=== PATIENT | female | born 1980 | race Caucasian/White ===

== ENCOUNTER 2023-05-14 13:17 | Emergency (ER) | payer MEDICAID, SELFPAY ==
[2023-05-14] VITALS (9 sets, daily range): BP systolic 116–125; BP diastolic 79–87; PULSE 81–122; RESP 16; TEMP 37.2; O2SAT 97–100; BMI 33.3
--- NOTE | 2023-05-14 15:47 | CRLHL7_ITS ---
For Patients: As a result of the Century Cures Act, medical imaging exams and procedure reports are released immediately into your electronic medical record. You may view this report before your referring provider. If you have questions, please contact your health care provider. INDICATION: Abdominal pain, constipation.. TECHNIQUE: CT abdomen and pelvis acquired with 98 cc Isovue 370 IV contrast. COMPARISON: None. FINDINGS: Lower chest: Unremarkable. Liver: Unremarkable. Normal in size and attenuation. No suspicious masses. Gallbladder and bile ducts: The gallbladder is absent. No intrahepatic biliary ductal dilatation. Pancreas: Unremarkable. No mass or inflammation. Spleen: Unremarkable. Normal in size. No masses. Adrenal glands: Unremarkable. No nodules. Kidneys: Unremarkable. No suspicious masses, stones, or hydronephrosis. GI tract: Unremarkable. Normal in caliber. No sign of mass or inflammation. Clips in the right lower quadrant likely related to prior appendectomy. Vasculature: Abdominal aorta is normal in caliber. Mesenteric arteries are patent. Lymph nodes: No lymphadenopathy. Peritoneum/Abdominal Wall: Unremarkable. No sign of mass or infiltration. No free air or significant free fluid. Pelvis: Fibroid uterus. Bladder is unremarkable. Bones: Unremarkable for age. IMPRESSION: No acute intraabdominal process identified. Please note that all CT scans at this facility use dose modulation, iterative reconstruction, and/or weight-based dosing when appropriate to reduce radiation dose to as low as reasonably achievable. Dictated by Ceci Mendenhall MD @ 05/14/2023 5:32:28 PM (Electronically Signed)
--- NOTE | 2023-05-14 15:57 | ED.GENADULT ---
HPI - General Adult General Chief complaint: Abdominal Pain Stated complaint: L side numb, deaf L side, stomach pain Time Seen by Provider: 05/14/23 15:33 Source: patient Mode of arrival: ambulatory Limitations: no limitations History of Present Illness HPI narrative: Patient is a 42-year-old female with a history of fatty liver disease, meth abuse presenting to the emergency department for multiple complaints. She states she was seen in at [facility] in 2-3 weeks ago and ended up being admitted to the hospital. She was diagnosed with severe constipation. She states the CT scan was done showing a large amount of inflammation of her colon that was due to the constipation. She is sent home on several stool softener she states since then she will be incontinent of small amounts of stool but has not had any large bowel movements. She does state there is a known issue with 1 of her rectum muscles. She says the time of admission she was vomiting due to goncalves nauseated she was and how much pain she was having. She states that an endoscopy and colonoscopy was not done. Since then symptoms have not been getting better and she does not feel like she can handle them anymore. She also states last night she started noticing some numbness to the left side of her face that has not improved. She states she just does not feel right. She has also been having tremors for the past couple days. Related Data Home Medications Medication Instructions Recorded Confirmed albuterol sulfate 90 mcg/actuation inhalation 05/14/23 aerosol inhaler (Ventolin HFA) atomoxetine 80 mg capsule 80 mg PO QAM 05/14/23 05/14/23 cholecalciferol (vitamin D3) 50 50 mcg PO DAILY 05/14/23 05/14/23 mcg (2,000 unit) capsule fluticasone 100 mcg-salmeterol 50 1 ea inhalation Q12H 05/14/23 05/14/23 mcg/dose blistr powdr for inhalation (Advair Diskus) gabapentin 300 mg capsule 300 mg PO 3XD 05/14/23 05/14/23 hydrochlorothiazide 12.5 mg tablet 12.5 mg PO DAILY 05/14/23 05/14/23 multivitamin with folic acid 400 1 tab PO DAILY 05/14/23 05/14/23 mcg tablet (Tab-A-Scott) omeprazole 40 mg capsule,delayed 40 mg PO DAILY 05/14/23 05/14/23 release polyethylene glycol 3350 17 17 g PO DAILY 05/14/23 05/14/23 gram/dose oral powder prazosin 1 mg capsule mg PO 05/14/23 prazosin 2 mg capsule 2 mg PO QPM 05/14/23 05/14/23 topiramate 25 mg tablet 25 mg PO DAILY 05/14/23 05/14/23 trazodone 50 mg tablet 50 - 150 mg PO QPM PRN 05/14/23 05/14/23 Allergies Allergy/AdvReac Type Severity Reaction Status Date / Time mold Allergy Severe Anaphylaxis Verified 05/14/23 16:19 almond Allergy Mild Hives Verified 05/14/23 16:19 loratadine [From Claritin] Allergy Mild Hives Verified 05/14/23 16:19 sumatriptan [From Imitrex] Allergy Mild Hives Verified 05/14/23 16:19 morphine AdvReac Mild Palpitation Verified 05/14/23 16:19 s PFSH PFSH Social History Smoking Status: Current every day smoker What tobacco products do you use: cigarettes How often do you have a drink containing alcohol: never AUDIT-C Alcohol total score: 0 Non-prescribed substance use: former substance user and amphetamines/methamphetamines Exam Narrative: Exam Narrative: Const: Well-nourished, Well-developed, in moderate distress, appears very anxious Eyes: PERRL, no conjunctival injection, and symmetrical lids HENT: Atraumatic external nose and ears. Moist mucous membranes. Neck: Symmetric, trachea midline, No thyromegaly. CVS: RRR, No murmurs or gallops. Peripheral pulses 2+ and equal in all extremities RESP: Unlabored respiratory effort. Clear to auscultation bilaterally. GI: Nontender/Nondistended, No rebound or guarding. MSK:Extremities w/o deformity, Normal Active ROM Skin: Warm, Dry. No rashes or lesions. Neuro: Normal Muscle tone, No focal neurological deficits. Psych: Awake, Alert, & Oriented x3. Appropriate mood and affect. Const: Vital Signs, click to edit/add: Vital Signs - 24 hr 05/14/23 13:48 05/14/23 16:47 05/14/23 17:00 Temperature 98.9 F Pulse Rate 84 88 Pulse Rate [Pulse Oximeter] 122 H Respiratory Rate 16 Blood Pressure Blood Pressure [Ri ght Upper Arm] 125/87 Pulse Oximetry 97 99 99 Oxygen Delivery Me thod Room Air 05/14/23 17:02 05/14/23 17:03 05/14/23 17:15 Temperature Pulse Rate 82 83 87 Pulse Rate [Pulse Oximeter] Respiratory Rate Blood Pressure 116/79 Blood Pressure [Ri ght Upper Arm] Pulse Oximetry 100 99 99 Oxygen Delivery Me thod 05/14/23 17:30 05/14/23 17:31 05/14/23 17:45 Temperature Pulse Rate 81 83 82 Pulse Rate [Pulse Oximeter] Respiratory Rate Blood Pressure 122/79 Blood Pressure [Ri ght Upper Arm] Pulse Oximetry 99 99 99 Oxygen Delivery Me thod Course Vital Signs Vital signs: Initial Vital Signs Temperature 98.9 F 05/14/23 13:48 Temperature Source Temporal Artery Scan 05/14/23 13:48 Pulse Rate 122 H 05/14/23 13:48 Respiratory Rate 16 05/14/23 13:48 Blood Pressure 125/87 05/14/23 13:48 Blood Pressure Mean 99 05/14/23 13:48 Blood Pressure Position Sitting 05/14/23 13:48 Pulse Oximetry 97 05/14/23 13:48 Oxygen Delivery Method Room Air 05/14/23 13:48 Vital Signs Temperature 98.9 F 05/14/23 13:48 Pulse Rate 122 H 05/14/23 13:48 Respiratory Rate 16 05/14/23 13:48 Blood Pressure 125/87 05/14/23 13:48 Pulse Oximetry 97 05/14/23 13:48 Oxygen Delivery Method Room Air 05/14/23 13:48 Temperature 98.9 F 05/14/23 13:48 Pulse Rate 82 05/14/23 17:45 Respiratory Rate 16 05/14/23 13:48 Blood Pressure 122/79 05/14/23 17:31 Pulse Oximetry 99 05/14/23 17:45 Oxygen Delivery Method Room Air 05/14/23 13:48 Medications Administered Medications: Discontinued Medications Generic Name Dose Route Start Last Admin Trade Name Freq PRN Reason Stop Dose Admin Lactated Ringer's 1,000 mls @ 1,000 mls/hr 05/14/23 15:47 05/14/23 17:39 Lactated Ringers 1000 Ml IV 05/14/23 16:46 Infused .Q1H ONE Infusion Ketorolac Tromethamine 15 mg 05/14/23 15:47 05/14/23 16:28 Ketorolac 15 Mg/Ml Inj IVP 05/14/23 15:48 15 mg ONCE ONE Administration Morphine Sulfate 2 mg 05/14/23 17:16 05/14/23 17:39 Morphine 2 Mg/Ml Inj IVP 05/14/23 17:17 Not Given ONCE ONE Ondansetron HCl 4 mg 05/14/23 15:47 05/14/23 16:28 Ondansetron 2 Mg/Ml Inj IVP 05/14/23 15:48 4 mg ONCE ONE Administration Medical Decision Making MDM Narrative Medical decision making narrative: Patient is a 42-year-old female presenting to emergency department for multiple complaints. She is having lots of abdominal pain and Toradol was given pain. I am hesitant to give her any kind of narcotics initially due to her history of addiction. Were CT scan of the abdomen and pelvis with IV contrast, CMP, lactate, lipase, COVID/flu/RSV, CBC, magnesium, urinalysis. She did have some improvement of the pain that the Toradol at 1st but later asked for more pain medication and I did offered 2 mg of morphine but she refused because she says it gives her palpitations. CBC shows no concerning abnormalities. CMP shows potassium of 3.2 which is only mildly low and does not seem likely to be causing numbness to her face. Also liver I talked her about this numbness she said faculty explaining it and says it just feels different.So does not appear to be true numbness and with no other symptoms seems extremely unlikely to be a stroke. Her tremors appear to be from anxiety she appears extremely anxious. Abdominal CT scan shows no concerning findings. There is some constipation but not a large amount and is unlikely to be causing his symptoms. She is RSV positive. Once the spoke to her about this she she started talking more about her sinus congestion. When she started talking to me she was no longer acting like she was not pain in this entire time her heart rate stayed in the low 90s. She did not request any further pain medication after informed her she had RSV. I spoke to her about the RSV and how this might be causing her symptoms and she states she understands. I do not see any emergent causes to keep her in the hospital. I will discharge her home on Toradol. Of note I also reviewed her epic records and I saw she had a primary care visit yesterday. While reviewing it I do not see anything about her complaining about abdominal pain. She states she did and was told to go to urgent care. Lab Data Labs: Lab Results 05/14/23 05/14/23 05/14/23 Range/Units 16:10 16:27 16:41 WBC 5.99 (4.50-11.00) K/uL RBC 5.22 H (4.00-5.20) m/uL Hgb 14.1 (12.0-16.0) gm/dL Hct 43.0 (33.0-51.0) % MCV 82 (80-100) fL MCH 27 (26-34) pg MCHC 33 (32-36) gm/dL RDW Coeff of [place] 11.3 L (11.5-15.5) % Plt Count 312 (140-440) K/uL Neut % (Auto) 56.9 (42.0-72.0) % Lymph % (Auto) 30.6 (20-44) % [place] % (Auto) 10.2 (0.0-11.0) % Eos % (Auto) 2.0 (0.0-7.0) % Baso % (Auto) 0.3 (0.0-3.0) % Neut # (Auto) 3.41 (1.7-7.0) K/uL Lymph # (Auto) 1.83 (0.90-2.90) K/uL [place] # (Auto) 0.60 (0.00-0.90) K/UL Eos # (Auto) 0.12 (0.00-0.50) K/uL Baso # (Auto) 0.02 (0.00-0.30) K/uL Abs Immat Gran (auto) 0.00 (0.00-0.30) K/uL Imm/Tot Granulo (auto) 0.0 % Sodium 136 (135-149) mmol/L Potassium 3.2 L (3.6-5.1) mmol/L Chloride 103 (96-114) mmol/L Carbon Dioxide 24 (20-32) mmol/L Anion Gap 9 (7-15) mEq/L BUN 13 (5-24) mg/dL Creatinine 0.8 (0.5-1.5) mg/dL Estimated Creat Clear 83.27 Estimated GFR 95 ml/min Glucose 89 (60-115) mg/dL Lactate 0.8 (0.5-1.9) mmol/L Calcium 9.3 (8.4-10.6) mg/dL Magnesium 2.0 (1.5-2.6) mg/dL Total Bilirubin 0.3 (0.1-1.5) mg/dL AST 24 (12-35) U/L ALT 27 (4-35) U/L Alkaline Phosphatase 93 (40-150) U/L Total Protein 7.5 (6.0-8.3) g/dL Albumin 4.5 (3.3-5.0) g/dL Lipase 57 (23-300) U/L Urine Color Yellow (Yellow) Urine Appearance Clear (Clear) Urine pH 5.5 (5.0-8.5) Ur Specific [place] 1.010 (1.000-1.030) Urine Protein Negative (Negative) Urine Glucose (UA) Negative (Negative) Urine Ketones Negative (Negative) Urine Blood Negative (Negative) Urine Nitrite Negative (Negative) Urine Bilirubin Negative (Negative) Urine Urobilinogen 0.2 (0.2-1.0) Ur Leukocyte Esterase Negative (Negative) Urine RBC 0-2 (0-2) Urine WBC 0-2 (0-5) Ur Squamous Epith Cells None (None-Few) Urine Bacteria None (None) SARS-CoV-2 (PCR) Cancelled Negative SARS-CoV-2 Influenza Type A (PCR) Cancelled Negative PCR FLU A Influenza Type B (PCR) Cancelled Negative PCR FLU B RSV (PCR) POSITIVE PCR RSV A (Negative) Imaging Data CT scan abdomen pelvis: Radiologist's impression: No acute intraabdominal process identified. Please note that all CT scans at this facility use dose modulation, iterative reconstruction, and/or weight-based dosing when appropriate to reduce radiation dose to as low as reasonably achievable. Dictated by Ceci Mendenhall MD @ 05/14/2023 5:32:28 PM Discharge Plan Discharge Clinical Impression: Respiratory syncytial virus (RSV) Patient Disposition: Home, Self-Care Condition: Stable Instructions: RSV (Respiratory Syncytial Virus) (ED) Additional Instructions: Your symptoms may all be from RSV. CT scan did not show anything concerning. You of some constipation but not a concerning amount. For your sinus issues you can use Afrin for 3 days. You can pick it up [id number]. Use the Toradol for pain but do not take other NSAIDs such as ibuprofen or naproxen at the same time. Prescriptions: No Action prazosin 1 mg capsule PO omeprazole 40 mg capsule,delayed release(DR/EC) 40 mg PO DAILY gabapentin 300 mg capsule 300 mg PO 3XD fluticasone propion-salmeterol [Advair Diskus] 100-50 mcg/dose blister with device 1 ea INHALATION Q12H polyethylene glycol 3350 17 gram/dose powder 17 g PO DAILY prazosin 2 mg capsule 2 mg PO QPM atomoxetine 80 mg capsule 80 mg PO QAM hydrochlorothiazide 12.5 mg tablet 12.5 mg PO DAILY multivitamin with folic acid [Tab-A-Scott] 400 mcg tablet 1 tab PO DAILY topiramate 25 mg tablet 25 mg PO DAILY cholecalciferol (vitamin D3) 50 mcg (2,000 unit) capsule 50 mcg PO DAILY trazodone 50 mg tablet 50 - 150 mg PO QPM PRN albuterol sulfate [Ventolin HFA] 90 mcg/actuation HFA aerosol inhaler inhalation Follow Up/Referrals: Provider,Not a Local [Primary Care Provider] - Stand Alone Forms: [employer] Info Instructions
[2023-05-14 16:21] LABS: Lactate* 0.8 mmol/L (0.5-1.9)
[2023-05-14 16:23] LABS: Basophils Absolute Auto 0.02 K/uL (0.00-0.30); Basophils Percent Auto 0.3 % (0.0-3.0); Eosinophils Absolute Auto 0.12 K/uL (0.00-0.50); Hemoglobin* 14.1 gm/dL (12.0-16.0); Lymphocytes Absolute Auto 1.83 K/uL (0.90-2.90); Lymphocytes Percent Auto 30.6 % (20-44); Mean Corpuscular HGB Conc 33 gm/dL (32-36); Mean Corpuscular Hemoglobin 27 pg (26-34); Mean Corpuscular Volume 82 fL (80-100); Monocytes Percent Auto 10.2 % (0.0-11.0); Neutrophils Absolute Auto 3.41 K/uL (1.7-7.0); Neutrophils Percent Auto 56.9 % (42.0-72.0); Platelet Count* 312 K/uL (140-440); RDW Coefficient of Variation % 11.3 % (11.5-15.5); Red Blood Count 5.22 m/uL (4.00-5.20); White Blood Count* 5.99 K/uL (4.50-11.00)
[2023-05-14 16:26] LABS: Slide Review Reflex No
[2023-05-14] MEDS: LACTATED RINGERS 1000 ML 1,000 ML IV (16:27)
[2023-05-14] MEDS: ONDANSETRON 2 MG/ML inj 4 MG IVP (16:28)
[2023-05-14] MEDS: KETOROLAC 15 MG/ML inj IVP (16:28)
[2023-05-14 16:34] LABS: Appearance Urine Clear (Clear); Bilirubin Urine Negative (Negative); Blood Urine Negative (Negative); Color Urine Yellow (Yellow); Glucose Urine Negative (Negative); Ketones Urine Negative (Negative); Leukocyte Esterase Urine Negative (Negative); Nitrite Urine Negative (Negative); Protein Urine Negative (Negative); Urobilinogen Urine 0.2 (0.2-1.0); pH Urine 5.5 (5.0-8.5)
[2023-05-14 16:41] LABS: Albumin* 4.5 g/dL (3.3-5.0); Chloride* 103 mmol/L (96-114); Sodium* 136 mmol/L (135-149)
[2023-05-14 16:42] LABS: Potassium* 3.2 mmol/L (3.6-5.1)
[2023-05-14 16:43] LABS: Creatinine* 0.8 mg/dL (0.5-1.5); Est. Creatinine Clearance* 83.27; Estimated Glomerular Filt Rate 95 ml/min
[2023-05-14 16:44] LABS: Alanine Aminotransferase* 27 U/L (4-35); Alkaline Phosphatase* 93 U/L (40-150); Anion Gap 9 mEq/L (7-15); Aspartate Amino Transferase* 24 U/L (12-35); Bilirubin Total* 0.3 mg/dL (0.1-1.5); Blood Urea Nitrogen* 13 mg/dL (5-24); Calcium* 9.3 mg/dL (8.4-10.6); Carbon Dioxide* 24 mmol/L (20-32); Glucose* 89 mg/dL (60-115); Total Protein* 7.5 g/dL (6.0-8.3)
[2023-05-14 16:51] LABS: RBC Urine 0-2 (0-2); WBC Urine 0-2 (0-5)
[2023-05-14 17:38] LABS: PCR FLU A Negative PCR FLU A (Negative); PCR FLU B Negative PCR FLU B (Negative); PCR RSV POSITIVE PCR RSV (Negative); SARS PCR* Negative SARS-CoV-2 (Negative)
[2023-05-14 17:50] LABS: Lipase* 57 U/L (23-300)
== END 2023-05-14 18:11 | disposition home or self-care (01) ==
PROVIDERS: Emergency Provider Student in an Organized Health Care Education/Training Program
DX: R10.9 Unspecified abdominal pain (principal); R09.81 Nasal congestion; B97.4 Respiratory syncytial virus as the cause of diseases classified elsewhere
CPT/HCPCS: 36415; 74177; 80053; 81001; 83605; 83690; 83735; 85025; 87631; 95992; 96361; 96374; 96375; 99283; 99284; 99285; J1885; J2405; J7120; Q9967

== ENCOUNTER 2023-06-01 09:52 | Outpatient (CLI) | payer MEDICAID, SELFPAY | END 2023-06-01 09:53 | disposition home or self-care (01) | PROVIDERS: PCP Family Medicine; Visit Provider Family Medicine | DX: Z00.00 Encounter for general adult medical examination without abnormal findings (principal); E04.1 Nontoxic single thyroid nodule; E66.9 Obesity, unspecified; K76.0 Fatty (change of) liver, not elsewhere classified; F90.9 Attention-deficit hyperactivity disorder, unspecified type; F15.11 Other stimulant abuse, in remission; F32.A Depression, unspecified | CPT/HCPCS: 80053; 80061; 84432; 84439; 84443; 84445; 84480; 86376; 86800 ==

== ENCOUNTER 2023-06-11 14:44 | Observation (INO) | payer MEDICAID, SELFPAY ==
[2023-06-11] VITALS (17 sets, daily range): BP systolic 101–130; BP diastolic 67–86; PULSE 75–137; RESP 18; TEMP 36.6–37; O2SAT 92–98; BMI 27.5; BMI 32.6
--- NOTE | 2023-06-11 15:14 | ED_ITS ---
HPI - General Adult General Time Seen by Provider: 15:14 Date Seen: 06/11/23 Chief complaint: Arrhythmia/Palpitations Stated complaint: High blood pressure Time Seen by Provider: 06/11/23 14:49 Source: patient, RN notes reviewed and old records reviewed Mode of arrival: ambulatory Limitations: no limitations History of Present Illness HPI narrative: Ana is a 42-year-old female coming into the ER with concern of her blood pressure being up, not feeling right with recent diagnosis of hyperthyroidism. 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 They reportedly found thyroid nodules, she states she has 3 of them, 1 is large, has been recommended for biopsy. She continued to wait for referrals and appointments which never happened. She is now in a alf house, did see primary care provider in the [place] system on June 01. She was found to be hyperthyroid, a thyroid uptake scan is scheduled for this upcoming Tuesday and . She was told that she could not be on the propranolol. She did not start any other thyroid medication like methimazole. She states she is just not feeling well, is not feeling right. Her heart rate is going up into the 150s if she does anything. Her blood pressure today was 145/100, pulse was 156, she became alarmed. She rechecked her vitals 30 minutes later and her blood pressure was 133/99 and pulse was 153. She feels shaky, feels like her heart is racing and skipping beats, short of breath. Last night she was lightheaded and dizzy. She has been having watery diarrhea, no fever. She states she is getting her thyroid uptake scan and then going to go to [place] for endocrinology referral. After the thyroid labs came back, patient was started on propranolol 20 mg b.i.d.. She has been off of this as she was told she could not take it prior to the test. Related Data Home Medications Medication Instructions Recorded Confirmed albuterol sulfate 90 mcg/actuation inhalation 05/14/23 06/01/23 aerosol inhaler (Ventolin HFA) cholecalciferol (vitamin D3) 50 50 mcg PO DAILY 05/14/23 06/01/23 mcg (2,000 unit) capsule fluticasone 100 mcg-salmeterol 50 1 ea inhalation Q12H 05/14/23 06/01/23 mcg/dose blistr powdr for inhalation (Advair Diskus) multivitamin with folic acid 400 1 tab PO DAILY 05/14/23 06/01/23 mcg tablet (Tab-A-Scott) polyethylene glycol 3350 17 17 g PO DAILY 05/14/23 06/01/23 gram/dose oral powder clonidine HCl 0.3 mg tablet 0.3 mg PO TID PRN 06/01/23 06/01/23 epinephrine 0.3 mg/0.3 mL 0.3 mg IM ONCE PRN 06/01/23 06/01/23 injection, auto-injector gabapentin 300 mg capsule 300 mg PO QDAY 06/01/23 06/01/23 melatonin 10 mg tablet 20 mg PO QHS PRN 06/01/23 06/01/23 ondansetron 4 mg disintegrating 4 mg PO Q8H 06/01/23 06/01/23 tablet Previous Rx's Medication Instructions Recorded atomoxetine 80 mg capsule 80 mg PO QAM #30 caps 06/01/23 blood pressure monitor #1 ea 06/01/23 hydrochlorothiazide 12.5 mg tablet 12.5 mg PO DAILY #90 tabs 06/01/23 omeprazole 40 mg capsule,delayed 40 mg PO DAILY #90 caps 06/01/23 release prazosin 1 mg capsule 1 mg PO QHS #90 caps 06/01/23 prazosin 2 mg capsule 2 mg PO QPM #90 caps 06/01/23 propranolol 20 mg tablet 20 mg PO BID #90 tabs 06/01/23 topiramate 25 mg tablet 25 mg PO DAILY #90 tabs 06/01/23 trazodone 100 mg tablet 200 mg (2 x 100 mg) PO QDAY #60 06/01/23 tabs Allergies Allergy/AdvReac Type Severity Reaction Status Date / Time mold Allergy Severe Anaphylaxis Verified 06/11/23 15:03 almond Allergy Mild Hives Verified 06/11/23 15:03 loratadine [From Claritin] Allergy Mild Hives Verified 06/11/23 15:03 sumatriptan [From Imitrex] Allergy Mild Hives Verified 06/11/23 15:03 morphine AdvReac Mild Palpitation Verified 06/11/23 15:03 s Review of Systems Status of ROS: Reports: 6 or more systems reviewed and unremarkable except as noted in History and below [facility] Medical History Lower extremity edema ?R60.0 - Localized edema (ICD-10) Chronic pain ?G89.29 - Other chronic pain (ICD-10) Endometriosis ?N80.9 - Endometriosis, unspecified (ICD-10) Fatty liver ?K76.0 - Fatty (change of) liver, not elsewhere classified (ICD-10) 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 - Other stimulant abuse, in remission (ICD-10) Irregular menses ?N92.6 - Irregular menstruation, unspecified (ICD-10) Uterine fibroid ?D25.9 - Leiomyoma of uterus, unspecified (ICD-10) Thyroid nodule ?E04.1 - Nontoxic single thyroid nodule (ICD-10) Intermittent asthma ?J45.20 - Mild intermittent asthma, uncomplicated (ICD-10) GERD (gastroesophageal reflux disease) ?K21.9 - Gastro-esophageal reflux disease without esophagitis (ICD-10) Chronic constipation ?K59.09 - Other constipation (ICD-10) History of abnormal cervical Pap smear ?Z87.42 - Personal history of other diseases of the female genital tract (ICD-10) Depression ?F32.A - Depression, unspecified (ICD-10) Anxiety ?F41.9 - Anxiety disorder, unspecified (ICD-10) Surgical History History of ovarian cystectomy (2001) ?Z98.890 - Other specified postprocedural states (ICD-10) ?Z87.42 - Personal history of other diseases of the female genital tract (ICD-10) History of cryosurgery (2000) ?Z98.890 - Other specified postprocedural states (ICD-10) History of appendectomy (2007) ?Z90.49 - Acquired absence of other specified parts of digestive tract (ICD- 10) History of laparoscopic cholecystectomy (2014) ?Z90.49 - Acquired absence of other specified parts of digestive tract (ICD- 10) History of esophagogastroduodenoscopy (EGD) (2020) ?Z98.890 - Other specified postprocedural states (ICD-10) History of open reduction and internal fixation (ORIF) procedure (2021) ?Z98.890 - Other specified postprocedural states (ICD-10) History of colonoscopy (2013) ?Z98.890 - Other specified postprocedural states (ICD-10) Family History Mother Heart failure Asthma Depression Father Heart failure Paternal Grandfather Liver disease Family/Other Breast cancer Social History Narrative: Single, living in sober recovery house in [place], not working, no children Smokes half a pack a day, 20 pack years No alcohol or methamphetamine since January 2023 Exercise twice a week walking What is your current living situation?: I presently have a place to live Problems where you live: no known problems In the past 12 months, utilities in danger of being shut off: no In past 12 months, lack of transportation kept you from medical appts, meetings, work, or getting things needed for daily living: no In the past 12 mos, have been you worried that your food would run out before you had money to buy more?: never true In the past 12 mos, the food you bought just didn't last and you didn't have money to buy more?: never true Smoking Status: Current every day smoker What tobacco products do you use: cigarettes Do you use any of these nicotine containing products: None Second hand tobacco smoke exposure: No How often do you have a drink containing alcohol: never AUDIT-C Alcohol total score: 0 Non-prescribed substance use: former substance user and amphetamines/methamphetamines How often does anyone, including family, friends and others, physically hurt you : never How often does anyone, including family, friends and others, insult or talk down to you: never How often does anyone, including family, friends and others, threaten you with harm: never How often does anyone, including family, friends and others, scream or curse at you: never Little interest or pleasure in doing things: not at all Feeling down, depressed, or hopeless: not at all service: No Exam Const: Vital Signs, click to edit/add: Vital Signs - 24 hr 06/11/23 15:10 06/11/23 15:19 06/11/23 15:30 Temperature 98.6 F Pulse Rate 102 H Pulse Rate [Pulse Oximeter] 137 H Respiratory Rate 18 Blood Pressure Blood Pressure [Ri ght Upper Arm] 128/86 Pulse Oximetry 95 94 94 Oxygen Delivery Me thod Room Air 06/11/23 15:30 06/11/23 15:32 06/11/23 16:00 Temperature Pulse Rate 99 99 107 H Pulse Rate [Pulse Oximeter] Respiratory Rate Blood Pressure 123/81 Blood Pressure [Ri ght Upper Arm] Pulse Oximetry 94 94 95 Oxygen Delivery Me thod 06/11/23 16:01 06/11/23 16:30 06/11/23 16:31 Temperature Pulse Rate 103 H 103 H 96 Pulse Rate [Pulse Oximeter] Respiratory Rate Blood Pressure 126/86 120/79 Blood Pressure [Ri ght Upper Arm] Pulse Oximetry 96 96 92 Oxygen Delivery Me thod 06/11/23 17:00 06/11/23 17:01 06/11/23 17:30 Temperature Pulse Rate 88 92 91 Pulse Rate [Pulse Oximeter] Respiratory Rate Blood Pressure 104/73 Blood Pressure [Ri ght Upper Arm] Pulse Oximetry 95 96 94 Oxygen Delivery Me thod 06/11/23 17:31 Temperature Pulse Rate 95 Pulse Rate [Pulse Oximeter] Respiratory Rate Blood Pressure 101/72 Blood Pressure [Ri ght Upper Arm] Pulse Oximetry 94 Oxygen Delivery Me thod This 42-year-old female seen in exam room 3. She seems ups, would even describe her is mildly agitated. She states she is not feeling well. Skin is without rash, no flush or erythema noted. Lungs are clear, no crackles or wheezing noted. CV is fast but regular, no murmur normal S1-S2, no S3-S4. Abdomen is soft, nondistended, nontender, no organomegaly, no rebound or guarding. She has no palpable lower extremity edema. I note no tremors, she overall does seem agitated. She can speak in complete sentences, it is making sense, tracking. Certainly is agitated about her situation though. Documenting provider has reviewed patient's vital signs: yes Course Course ED Course: Ana is resting heart rate on the monitor seems to be lower than her heart rate of 150 at home. Will continue to monitor her here. She has no fever, blood pressure is actually stable. Did review with her that thyroid storm will typically be associated with hypotension, hypotension is a bad finding with hyperthyroidism. I am reassured that her blood pressure is elevated. The diarrhea can be a symptom of thyroid storm. We need to check some labs on her, I will need to talk to Endocrinology. Reviewed with her that I am going to try to contact [place] to see if they will allow me to talk to Cardiology. I have concerns that she indeed may be going into thyroid storm. Will get a portable chest x-ray. She will be watched closely. Reevaluation(s) Time of Reevaluation #1: 15:29 Reevaluation #1: Reviewed with Ana that I had just spoken with Helen the RN at [facility]. They have no record of her name anywhere in the system, obviously the referral has not gotten through down there yet. Unfortunately with them being on general medicine service capacity/diversion, Helen states that I cannot talk to Endocrinology, they will not accept her in the ER. I have related this to Ana, will page out the wine cellar stock clerk at [place] to see if he thinks she is indeed in thyroid storm and help me with recommendations. I do think this patient may need to be transferred Where she can have higher level of care than we can provide here. Time of Reevaluation #2: 15:45 Reevaluation #2: Just spoke with the wine cellar stock clerk at [place] Dr. Kaufman. he agrees with treating for thyroid storm, he would recommend initiation with steroids and beta blockers. He would use Solu-Medrol and metoprolol, question if we should consider using methimazole or PTU. [facility] in [place] have endocrinology, patient is going to be wait listed there, they are going to page out endocrinology for me to talk to in the interim. I will be ordering 125 mg IV Solu-Medrol, will start a L of fluid over 2 hours. My preliminary review of her portable chest x-ray is without CHF. On scoring for thyroid storm, I calculate 45 points, with her heart rate based on the 150 range. Of note, when she is resting she is in the upper 90s to low 100s, under 110. Do think I need to talk to endocrinology about her further. Time of Reevaluation #3: 16:11 Reevaluation #3: Did speak with endocrinology on-call at [place]. She and I reviewed the case. She would recommend that this patient be on propranolol 40 mg 3 times a day. Consider initial 60 mg does here if needed. I did review with her that I had given some IV steroids. She also reviewed that the patient can be on the propranolol, it absolutely does not need to be held before her thyroid uptake. Methimazole or actual thyroid treatments do need to be, methimazole needs to be held 5 days prior. The methimazole can be given if the patient is significantly symptomatic and the thyroid uptake scan can always be done at a later date. The clothes ironer reviewed that they typically will withhold any radioactive iodine treatment if the patient is significantly symptomatic from hyperthyroidism, usually will treat with methimazole for a while to have a cool off. For the hyperthyroidism. If this isn't done, there can be risk of radiation thyroiditis if the patient is to active in there hyperthyroidism. Thus, the patient could be started on methimazole and the thyroid uptake scan and delayed until some of her thyroid hyperthyroidism is suppressed. In discussion with clothes ironer, she would favor using the resting heart rate for calculation of the thyroid storm score. After talking to the clothes ironer, did start the patient on 40 mg of propranolol orally. Talked about methimazole use, she is in the 90s resting for her heart rate. She is not hyper Pyrex sick, blood pressure is stable. She is receiving some IV fluids. She really does not want to delay the thyroid uptake scan because of the concern of the nodules that she has been told she has. Given patient's current status, do wonder if she can stay here and be observed overnight, initiated on the propranolol 40 mg 3 times a day, observed to make sure that she does not need to initiate the methimazole. I think it is reasonable to watch her overnight here, with her stability now on labs being normal, do not feel that she necessarily has to have transfer to [facility] and an inpatient endocrinology consult. Will talk to our hospitalist and see if they are willing. Consultations Consultation #1: have reviewed with Lisa Montanez hospitalists. She will accept care. Will take patient off the wait list at [facility]. Time: 17:12 Vital Signs Vital signs: Initial Vital Signs Temperature 98.6 F 06/11/23 15:10 Temperature Source Temporal Artery Scan 06/11/23 15:10 Pulse Rate 137 H 06/11/23 15:10 Pulse Rhythm Regular 06/11/23 15:10 Pulse Strength 3+ Normal 06/11/23 15:10 Respiratory Rate 18 06/11/23 15:10 Blood Pressure 128/86 06/11/23 15:10 Blood Pressure Mean 100 06/11/23 15:10 Blood Pressure Position Sitting 06/11/23 15:10 Pulse Oximetry 95 06/11/23 15:10 Oxygen Delivery Method Room Air 06/11/23 15:10 Vital Signs Temperature 98.6 F 06/11/23 15:10 Pulse Rate 137 H 06/11/23 15:10 Respiratory Rate 18 06/11/23 15:10 Blood Pressure 128/86 06/11/23 15:10 Pulse Oximetry 95 06/11/23 15:10 Oxygen Delivery Method Room Air 06/11/23 15:10 Temperature 98.6 F 06/11/23 15:10 Pulse Rate 95 06/11/23 17:31 Respiratory Rate 18 06/11/23 15:10 Blood Pressure 101/72 06/11/23 17:31 Pulse Oximetry 94 06/11/23 17:31 Oxygen Delivery Method Room Air 06/11/23 15:10 Medications Administered Medications: Discontinued Medications Generic Name Dose Route Start Last Admin Trade Name Freq PRN Reason Stop Dose Admin Sodium Chloride 1,000 mls @ 500 mls/hr 06/11/23 15:50 06/11/23 16:02 0.9 % Sodium Chloride 1000 Ml IV 06/11/23 17:49 500 mls/hr .Q2H CHRISTOPHER Administration Methylprednisolone Sodium Succinate 125 mg 06/11/23 15:49 06/11/23 16:03 Methylprednisolone Sod Succ 62.5 Mg/Ml (125) IVP 06/11/23 15:50 125 mg ONCE ONE Administration Propranolol HCl 40 mg 06/11/23 16:05 06/11/23 16:26 Propranolol 20 Mg Tablet PO 06/11/23 16:06 40 mg ONCE ONE Administration Medical Decision Making Lab Data Lab results reviewed: Yes I reviewed the patient's lab results Lab results narrative: From 06/01/2023 patient's thyroglobulin tumor marker was 11.7 within normal range being 1.3-31.8, TSH suppressed less than 0.015, free T4 elevated at 3.47 with a normal range of 0.7-1.85, T3 elevated at 233 within normal range being 80-233, thyroglobulin LC-MS was 15.1 within normal. Thyroid peroxidase antibodies were elevated at 299.8 with reference range of 0-9, thyroglobulin antibody elevated at 12.6 with a reference range of 0-4, Thyroid stimulating immunoglobulin elevated at 2.94. Labs: Lab Results 06/11/23 06/11/23 06/11/23 Range/Units 15:15 15:38 16:42 WBC 9.98 (4.50-11.00) K/uL RBC 5.50 H (4.00-5.20) m/uL Hgb 14.8 (12.0-16.0) gm/dL Hct 44.5 (33.0-51.0) % MCV 81 (80-100) fL MCH 27 (26-34) pg MCHC 33 (32-36) gm/dL RDW Coeff of Kenzie 11.6 (11.5-15.5) % Plt Count 316 (140-440) K/uL Neut % (Auto) 69.7 (42.0-72.0) % Lymph % (Auto) 22.8 (20-44) % Mercer % (Auto) 5.2 (0.0-11.0) % Eos % (Auto) 1.3 (0.0-7.0) % Baso % (Auto) 0.2 (0.0-3.0) % Neut # (Auto) 6.95 (1.7-7.0) K/uL Lymph # (Auto) 2.28 (0.90-2.90) K/uL Mercer # (Auto) 0.50 (0.00-0.90) K/UL Eos # (Auto) 0.13 (0.00-0.50) K/uL Baso # (Auto) 0.02 (0.00-0.30) K/uL Abs Immat Gran (auto) 0.08 (0.00-0.30) K/uL Imm/Tot Granulo (auto) 0.8 % INR 0.89 L (0.91-1.10) APTT 28 (23-33) Seconds Sodium 137 (135-149) mmol/L Potassium 3.7 (3.6-5.1) mmol/L Chloride 104 (96-114) mmol/L Carbon Dioxide 19 L (20-32) mmol/L Anion Gap 14 (7-15) mEq/L BUN 19 (5-24) mg/dL Creatinine 0.9 (0.5-1.5) mg/dL Estimated Creat Clear 71.03 Estimated GFR 82 ml/min Glucose 103 (60-115) mg/dL Calcium 9.5 (8.4-10.6) mg/dL Phosphorus 4.5 (2.5-4.5) mg/dL Magnesium 1.9 (1.5-2.6) mg/dL Total Bilirubin 0.2 (0.1-1.5) mg/dL AST 25 (12-35) U/L ALT 23 (4-35) U/L Alkaline Phosphatase 66 (40-150) U/L Total Creatine Kinase 50 (41-117) U/L Total Protein 7.8 (6.0-8.3) g/dL Albumin 4.7 (3.3-5.0) g/dL Urine Color Yellow (Yellow) Urine Appearance Clear (Clear) Urine pH 5.5 (5.0-8.5) Ur Specific [place] 1.020 (1.000-1.030) Urine Protein Negative (Negative) Urine Glucose (UA) Negative (Negative) Urine Ketones Negative (Negative) Urine Blood Negative (Negative) Urine Nitrite Negative (Negative) Urine Bilirubin Negative (Negative) Urine Urobilinogen 0.2 (0.2-1.0) Ur Leukocyte Esterase Negative (Negative) Urine RBC 0-2 (0-2) Urine WBC 0-2 (0-5) Ur Squamous Epith Cells Few (None-Few) Urine Bacteria Few A (None) Urine Opiates Screen Negative (Negative) Ur Oxycodone Screen Negative (Negative) Urine Methadone Screen Negative (Negative) Ur Propoxyphene Screen Not Reportable Ur Barbiturates Screen Negative (Negative) U Tricyclic Antidepress Negative (Negative) Ur Phencyclidine Scrn Negative (Negative) Ur Amphetamines Screen Negative (Negative) U Methamphetamines Scrn Negative (Negative) U Benzodiazepines Scrn Negative (Negative) Urine Cocaine Screen Negative (Negative) U Marijuana (THC) Screen Negative (Negative) Ur Drug Screen Comment See Note Lab Acknowledgement Test Added Imaging Data Chest x-ray: Attestation: I have reviewed the pertinent imaging results. My impression: I see no evidence of any congestive heart failure, fluid overload on my preliminary review. Radiologist's impression: Patient: ANA MAN Facility:?[facility] Patient ID:?[id number] Site Patient ID:?[id number]. Site :?[id number] Study:?XRay Chest -06/11/2023 3:33:27 PM Ordering Physician:Althea Juárez Final Report: INDICATION: Tachycardia. COMPARISON: None. TECHNIQUE: Single portable view of the chest. FINDINGS: Lungs are clear. No pleural effusions. No pneumothorax. Normal cardiomediastinal silhouette. No osseous abnormalities. Dictated by Ede Floyd MD @ 06/11/2023 3:51:15 PM (Electronic Signature) ECG Data Attestation: I personally reviewed and interpreted this ECG as follows: ( sinus tachycardia, 101 beats per minute. QT corrected 394 millisecond.) Prior ECG tracings: not available for review Discharge Plan Discharge Clinical Impression: Hyperthyroidism, Tachycardia Diarrhea Qualifiers: Diarrhea type: unspecified type Qualified Code(s): R19.7 - Diarrhea, unspecified Patient Disposition: Admitted As Observation
--- NOTE | 2023-06-11 15:20 | CRLHL7_ITS ---
For Patients: As a result of the Cures Act, medical imaging exams and procedure reports are released immediately into your electronic medical record. You may view this report before your referring provider. If you have questions, please contact your health care provider. INDICATION: Tachycardia. COMPARISON: None. TECHNIQUE: Single portable view of the chest. FINDINGS: Lungs are clear. No pleural effusions. No pneumothorax. Normal cardiomediastinal silhouette. No osseous abnormalities. Dictated by Ede Floyd MD @ 06/11/2023 3:51:15 PM (Electronically Signed)
[2023-06-11 15:34] LABS: Basophils Absolute Auto 0.02 K/uL (0.00-0.30); Basophils Percent Auto 0.2 % (0.0-3.0); Eosinophils Absolute Auto 0.13 K/uL (0.00-0.50); Eosinophils Percent Auto 1.3 % (0.0-7.0); Hematocrit 44.5 % (33.0-51.0); Hemoglobin* 14.8 gm/dL (12.0-16.0); Immature Granulocytes Abs Auto 0.08 K/uL (0.00-0.30); Immature Granulocytes Pct Auto 0.8 %; Lymphocytes Absolute Auto 2.28 K/uL (0.90-2.90); Lymphocytes Percent Auto 22.8 % (20-44); Mean Corpuscular HGB Conc 33 gm/dL (32-36); Mean Corpuscular Hemoglobin 27 pg (26-34); Mean Corpuscular Volume 81 fL (80-100); Monocytes Percent Auto 5.2 % (0.0-11.0); Neutrophils Absolute Auto 6.95 K/uL (1.7-7.0); Neutrophils Percent Auto 69.7 % (42.0-72.0); Platelet Count* 316 K/uL (140-440); RDW Coefficient of Variation % 11.6 % (11.5-15.5); White Blood Count* 9.98 K/uL (4.50-11.00)
[2023-06-11 15:36] LABS: Slide Review Reflex No
[2023-06-11 15:48] LABS: Albumin* 4.7 g/dL (3.3-5.0); Chloride* 104 mmol/L (96-114); Potassium* 3.7 mmol/L (3.6-5.1); Sodium* 137 mmol/L (135-149)
[2023-06-11 15:49] LABS: INR 0.89 (0.91-1.10); Prothrombin Time 12.5 Seconds
[2023-06-11 15:50] LABS: Anion Gap 14 mEq/L (7-15); Aspartate Amino Transferase* 25 U/L (12-35); Bilirubin Total* 0.2 mg/dL (0.1-1.5); Carbon Dioxide* 19 mmol/L (20-32); Creatinine* 0.9 mg/dL (0.5-1.5); Est. Creatinine Clearance* 71.03; Estimated Glomerular Filt Rate 82 ml/min; Partial Thromboplastin Time* 28 Seconds (23-33); Total Protein* 7.8 g/dL (6.0-8.3)
[2023-06-11 15:51] LABS: Alanine Aminotransferase* 23 U/L (4-35); Alkaline Phosphatase* 66 U/L (40-150); Blood Urea Nitrogen* 19 mg/dL (5-24); Calcium* 9.5 mg/dL (8.4-10.6); Creatine Kinase* 50 U/L (41-117); Glucose* 103 mg/dL (60-115); Magnesium* 1.9 mg/dL (1.5-2.6); Phosphorus* 4.5 mg/dL (2.5-4.5)
[2023-06-11] MEDS: 0.9 % SODIUM CHLORIDE 1000 ml 1,000 ML 500 ML IV (16:02)
[2023-06-11] MEDS: METHYLPREDNISOLONE SOD SUCC 62.5 MG/ML (125) 125 MG IVP (16:03)
[2023-06-11] MEDS: PROPRANOLOL 20 MG TABLET 40 MG PO ×2 (16:26→21:30)
[2023-06-11 16:53] LABS: Appearance Urine Clear (Clear); Bilirubin Urine Negative (Negative); Blood Urine Negative (Negative); Color Urine Yellow (Yellow); Glucose Urine Negative (Negative); Ketones Urine Negative (Negative); Leukocyte Esterase Urine Negative (Negative); Nitrite Urine Negative (Negative); Protein Urine Negative (Negative); Urobilinogen Urine 0.2 (0.2-1.0); pH Urine 5.5 (5.0-8.5)
[2023-06-11 16:58] LABS: Amphetamine Screen Urine Negative (Negative); Barbiturate Screen Urine Negative (Negative); Benzodiazepines Screen Urine Negative (Negative); Cannabinoid Screen Urine Negative (Negative); Cocaine Screen Urine Negative (Negative); Methadone Screen Urine Negative (Negative); Methamphetamines Screen Urine Negative (Negative); Opiate Screen Urine Negative (Negative); Oxycodone Screen Urine Negative (Negative); Phencyclidine Screen Urine Negative (Negative); Tricyclic Antidepressant Urine Negative (Negative)
[2023-06-11 17:14] LABS: Bacteria Urine Few; RBC Urine 0-2 (0-2); Squamous Epithelial Cell Urine Few (None-Few); WBC Urine 0-2 (0-5)
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
--- NOTE | 2023-06-11 17:53 | ED.NURSE ---
Report given to M/S nurse. All questions answered. Pt going to M/S room 259. Pt transferred in stable condition via wheelchair. All belongings with patient upon transfer.
[2023-06-11] MEDS: NICOTINE 21 MG PATCH 1 PATCH TRANSDERMA (21:30)
[2023-06-11] MEDS: TRAZODONE HCL 50 MG TABLET 200 MG PO (21:30)
[2023-06-11] MEDS: 0.9 % SODIUM CHLORIDE 1000 ml 1,000 ML 100 ML IV (21:32)
[2023-06-11] MEDS: PRAZOSIN HCL 1 MG CAPSULE 3 MG PO (22:18)
[2023-06-12] MEDS: LORazepam 0.5 MG TABLET PO (00:42)
[2023-06-12] MEDS: ACETAMINOPHEN 325 MG TABLET 1000 MG PO (00:47)
[2023-06-12 03:00] VITALS: BP 116/63; PULSE 73; RESP 18; TEMP 36.7; O2SAT 94
[2023-06-12] MEDS: 0.9 % SODIUM CHLORIDE 1000 ml 1,000 ML 100 ML IV (04:39)
[2023-06-12 06:45] LABS: Hematocrit 40.8 % (33.0-51.0); Hemoglobin* 13.3 gm/dL (12.0-16.0); Mean Corpuscular HGB Conc 33 gm/dL (32-36); Mean Corpuscular Hemoglobin 27 pg (26-34); Mean Corpuscular Volume 82 fL (80-100); Platelet Count* 305 K/uL (140-440); Red Blood Count 4.97 m/uL (4.00-5.20); White Blood Count* 11.89 K/uL (4.50-11.00)
--- NOTE | 2023-06-12 06:50 | PC.NURSE ---
?indep in rm. Pt expressed anxiety and feeling like her heart is racing, tele doc called, received an order for 0.5mg Ativan, offered minimal relief. Research Librarian brought in white noise machine along with an essential oil patch for a more relaxing environment, pt was then able to get some rest. Pt c/o abd pain, tylenol given (aqua pad would have been provided however, there are none available on the floor. VSS.
[2023-06-12 07:00] VITALS: BP 105/55; PULSE 72; RESP 18; TEMP 36.7; O2SAT 96
[2023-06-12 07:15] LABS: Slide Review Reflex No
[2023-06-12 07:21] LABS: Chloride* 111 mmol/L (96-114); Potassium* 3.9 mmol/L (3.6-5.1); Sodium* 138 mmol/L (135-149)
[2023-06-12 07:23] LABS: Creatinine* 0.6 mg/dL (0.5-1.5); Est. Creatinine Clearance* 106.55; Estimated Glomerular Filt Rate 116 ml/min
[2023-06-12 07:24] LABS: Anion Gap 8 mEq/L (7-15); Blood Urea Nitrogen* 16 mg/dL (5-24); Carbon Dioxide* 19 mmol/L (20-32); Glucose* 119 mg/dL (60-115)
[2023-06-12] MEDS: PROPRANOLOL 20 MG TABLET 40 MG PO (09:25)
[2023-06-12] MEDS: OMEPRAZOLE 20 MG CAPSULE DR 40 MG PO (09:25)
[2023-06-12] MEDS: hydroCHLOROthiazide 12.5 MG CAPSULE PO (09:25)
[2023-06-12] MEDS: GABAPENTIN 300 MG CAPSULE PO (09:25)
--- NOTE | 2023-06-12 10:31 | PC.NURSE ---
Discharge: patient is alert and oriented x4, VSS. denies N/V/SOB. patient is 100% on RA. Indp. to BR. tolerating a reg. diet. Patient discharged to sober living facility today at 0955. IV removed intact. Belongings sheet signed. Discharge instructions signed, patient verbalized understanding of instructions.
--- NOTE | 2023-06-12 16:56 | PM.DS1 ---
DS: Providers Provider Date Seen: 06/12/23 Date of admission: 06/11/23 17:53 Primary care physician: Tahmina Gandhi MD Admitting Clinician: Lisa Montanez PA-C Attending Physician on discharge: Kirsty Cabrera MD [facility] Date of Discharge: 06/12/23 DS: Diagnosis Discharge Diagnosis (1) Hyperthyroidism: Status: Acute Problem details: -thyroiditis, likely Graves disease. -symptomatic with intermittent tachycardia, diarrhea, malaise, weight loss (though she has been using Topamax for this) Labs 06/01/2023 with PCP: TSH <0.015, free T4 3.47, T3 233, thyroglobulin tumor marker 11.7, thyroglobulin LC-MS/MS 15.1 -received a single dose methylprednisolone 125 mg in ED, no further steroids recommended -propranolol -nucleolar thyroid scan with iodine uptake scheduled locally for 06/15-06/16/23 --recommendations as above per [facility] as discussed with the ED provider (2) Diarrhea: Status: Acute Problem details: Likely related to hyperthyroid status (3) Tachycardia: Status: Acute Problem details: -intermittent, heart rate 150s with activity, <110 at rest -during office visit on 06/01/23, HR 123, BP 134/80 -telemetry -monitoring response to propranolol dosing (4) History of methamphetamine abuse: Status: Acute Problem details: Sober since 12/2022. Started using at age 17. Tx through [facility]. Currently in a [facility] house locally (5) Anxiety: Status: Chronic Problem details: Extremely anxious. Lots of reassurance and explanation given on the morning of 06/12/2023. DS: Summary Hospital Course Hospital Course: FINAL DIAGNOSIS/FOLLOW UP ISSUES: Acute thyroiditis, new onset hyperthyroidism, possible Graves disease. Patient had not yet had any symptomatic treatment for this. Is very anxious. We admitted her on observation overnight to can help control her heart rate. She responded nicely to oral propranolol. She was given Imodium for her diarrhea. She was not given meth a methimazole in lieu of her pending scan. BRIEF HOSPITAL COURSE: Patient was admitted overnight. Synopsis of acute inpatient issues are outlined above. Chronic medical conditions with notable findings outlined above. DISCHARGE MEDICATIONS: See Reconciled list - SIGNIFICANT CHANGES: Propranolol 20 mg t.i.d., contagion other rescue dose of 20 mg if needed for heart rate greater than 120 Imodium p.r.n. Nicotine patches Very small dose of p.r.n. Ativan, only #10 given at discharge. Continue other home meds Specific instructions to the patient and follow-up are outlined below. REVIEW OF SYSTEMS No new chest pain or dyspnea Pain controlled No voiding difficulties Tolerating diet challenge PHYSICAL EXAM: CONSTITUTIONAL: Anxious, pressured speech. VITAL SIGNS: see record. HEENT: Normocephalic, atraumatic. PERRL, EOMI, conjunctivae pink, no scleral icterus. Ears and nose externally normal. Pharynx normal. NECK: No JVD. No carotid bruit, no thyromegaly, no adenopathy. CHEST: Clear to auscultation bilaterally. HEART: S1 and S2 normal. Edema ABDOMEN: Soft, nontender. Normal bowel sounds. MUSCULOSKELETAL: No gross joint deformity or swelling. NEURO: Cranial nerves intact. Grossly intact. No asymmetric findings. SKIN: No rashes, petechiae, concerning changes PSYCHIATRIC: Mood euthymic. DISPOSITION: Home with friend Time spent on discharge 37 minutes. Time Spent with Patient Time attestation: Total time spent providing and/or coordinating discharge services: Exam Const: Vital Signs, click to edit/add: Vital Signs - 24 hr 06/11/23 17:00 06/11/23 17:01 06/11/23 17:30 Temperature Pulse Rate 88 92 91 Pulse Rate [Left P ulse Oximeter] Respiratory Rate Blood Pressure 104/73 Blood Pressure [Le ft Arm] Pulse Oximetry 95 96 94 Oxygen Delivery Me thod 06/11/23 17:31 06/11/23 18:19 06/11/23 18:46 Temperature 98.6 F Pulse Rate 95 Pulse Rate [Left P ulse Oximeter] Respiratory Rate 18 18 Blood Pressure 101/72 Blood Pressure [Le ft Arm] 130/76 Pulse Oximetry 94 98 95 Oxygen Delivery Me thod Room Air Room Air 06/11/23 18:46 06/11/23 19:00 06/11/23 19:00 Temperature 98.6 F Pulse Rate 95 Pulse Rate [Left P ulse Oximeter] 79 Respiratory Rate 18 18 Blood Pressure Blood Pressure [Le ft Arm] 106/68 Pulse Oximetry 98 96 Oxygen Delivery Me thod Room Air Room Air 06/11/23 23:00 06/11/23 23:00 06/11/23 23:08 Temperature 98 F Pulse Rate 78 Pulse Rate [Left P ulse Oximeter] 75 75 Respiratory Rate 18 18 Blood Pressure Blood Pressure [Le ft Arm] 118/67 Pulse Oximetry 97 Oxygen Delivery Me thod Room Air 06/12/23 03:00 06/12/23 07:00 06/12/23 07:00 Temperature 98.1 F 98.1 F Pulse Rate Pulse Rate [Left P ulse Oximeter] 73 72 72 Respiratory Rate 18 18 18 Blood Pressure Blood Pressure [Le ft Arm] 116/63 105/55 L Pulse Oximetry 94 96 Oxygen Delivery Me thod Room Air Room Air DS: Data Data Completed and Pending Labs on day of discharge: Labs from last 24 hours 06/12/23 06/11/23 06:08 16:42 WBC 11.89 H RBC 4.97 Hgb 13.3 Hct 40.8 MCV 82 MCH 27 MCHC 33 Plt Count 305 Sodium 138 Potassium 3.9 Chloride 111 Carbon Dioxide 19 L Anion Gap 8 BUN 16 Creatinine 0.6 Estimated Creat Clear 106.55 Estimated GFR 116 Glucose 119 H Calcium 9.0 Urine Color Yellow Urine Appearance Clear Urine pH 5.5 Ur Specific [place] 1.020 Urine Protein Negative Urine Glucose (UA) Negative Urine Ketones Negative Urine Blood Negative Urine Nitrite Negative Urine Bilirubin Negative Urine Urobilinogen 0.2 Ur Leukocyte Esterase Negative Urine RBC 0-2 Urine WBC 0-2 Ur Squamous Epith Cells Few Urine Bacteria Few A Urine Opiates Screen Negative Ur Oxycodone Screen Negative Urine Methadone Screen Negative Ur Propoxyphene Screen Not Reportable Ur Barbiturates Screen Negative U Tricyclic Antidepress Negative Ur Phencyclidine Scrn Negative Ur Amphetamines Screen Negative U Methamphetamines Scrn Negative U Benzodiazepines Scrn Negative Urine Cocaine Screen Negative U Marijuana (THC) Screen Negative Preliminary micro results at discharge 06/11/23 Unknown Urine Culture - Preliminary Urine,Clean Catch < 50,000 COL/ML MIXED GRAM POSITIVE KARIN ISOLATED NO FURTHER WORKUP Discharge Plan Discharge Disposition: Home, Self-Care Date of Admission: 06/11/23 17:53 Attending Provider on Discharge: Kirsty Cabrera Primary Care Provider: Tahmina Gandhi Condition: Improved Anticipated Discharge Date/Time: 06/12/23 09:10 Discharge Medications: New nicotine 21 mg/24 hr Patch 24 Hour 1 patch transdermal Q24H Qty: 30 0RF loperamide [Anti-Diarrheal (loperamide)] 2 mg capsule 2 mg PO Q6H PRN (Reason: loose stool) Qty: 30 0RF lorazepam [Ativan] 1 mg tablet 0.5 mg PO Q12H PRNQty: 10 0RF Continued clonidine HCl 0.3 mg tablet 0.3 mg PO TID PRN epinephrine 0.3 mg/0.3 mL auto-injector 0.3 mg IM ONCE PRN Rx Instructions: as a single dose; may repeat once melatonin 10 mg tablet 20 mg PO QHS PRN ondansetron 4 mg tablet,disintegrating 4 mg PO Q8H atomoxetine 80 mg capsule 80 mg PO QAM Qty: 30 0RF omeprazole 40 mg capsule,delayed release(DR/EC) 40 mg PO DAILY Qty: 90 3RF prazosin 1 mg capsule 1 mg PO QHS Qty: 90 1RF prazosin 2 mg capsule 2 mg PO QPM Qty: 90 1RF topiramate 25 mg tablet 25 mg PO DAILY Qty: 90 1RF trazodone 100 mg tablet 200 mg PO QDAY Qty: 60 2RF hydrochlorothiazide 12.5 mg tablet 12.5 mg PO DAILY Qty: 90 3RF fluticasone propion-salmeterol [Advair Diskus] 100-50 mcg/dose blister with device 1 ea INHALATION Q12H polyethylene glycol 3350 17 gram/dose powder 17 g PO DAILY multivitamin with folic acid [Tab-A-Scott] 400 mcg tablet 1 tab PO DAILY cholecalciferol (vitamin D3) 50 mcg (2,000 unit) capsule 50 mcg PO DAILY albuterol sulfate [Ventolin HFA] 90 mcg/actuation HFA aerosol inhaler inhalation gabapentin 300 mg capsule 300 mg PO QDAY (DME) blood pressure monitor Kit See Rx Instructions .Route Qty: 1 0RF Rx Instructions: As directed Changed propranolol 20 mg tablet 20 mg PO TID Qty: 120 0RF Rx Instructions: may add one additional dose if HR is >120. Wait at least 1 hour between doses. Discharge Orders: Discharge Order (Routine); Ordered 06/12/23 Ordered By: Kirsty Cabrera Patient Education: Loperamide (By mouth), Lorazepam (By mouth), Nicotine (Absorbed through the skin), Hyperthyroidism (DC), Thyroid Scan and Uptake Test (GEN) Additional Instructions: 1. Check your blood pressure and pulse three times a day. If pulse is >120 you make take an additional dose of propranolol. 2. Pulse >120 after additional dose that persists - you should come to urgent care or see PCP 3.Your blood pressure can be anwhere from 90 to 200 (top number) - not worried about your blood pressure as much as your pulse. Don't worry about the bottom number on your blood pressure. Activity Level: Activity as Tolerated Discharge Diet: Regular Follow Up Appointments: Tahmina Gandhi MD [Primary Care Provider] - 06/20/23 Forms: [employer] Info Instructions
== END 2023-06-12 09:55 | disposition home or self-care (01) ==
LOC: ED 17:14 → MEDSURG 17:53
PROVIDERS: Admitting Provider Physician Assistant; Emergency Provider Family Medicine; PCP Family Medicine; Visit Provider Physician Assistant
DX: E05.90 Thyrotoxicosis, unspecified without thyrotoxic crisis or storm (principal); R00.0 Tachycardia, unspecified; I10 Essential (primary) hypertension; E06.9 Thyroiditis, unspecified; R19.7 Diarrhea, unspecified; R53.81 Other malaise; R63.4 Abnormal weight loss; Z68.32 Body mass index [BMI] 32.0-32.9, adult; R06.02 Shortness of breath; E04.1 Nontoxic single thyroid nodule; R60.0 Localized edema; G89.29 Other chronic pain; M54.50 Low back pain, unspecified; F41.9 Anxiety disorder, unspecified; F32.A Depression, unspecified; J45.20 Mild intermittent asthma, uncomplicated; F15.11 Other stimulant abuse, in remission; Z72.0 Tobacco use; K21.9 Gastro-esophageal reflux disease without esophagitis; Z87.19 Personal history of other diseases of the digestive system; Z87.898 Personal history of other specified conditions; Z87.42 Personal history of other diseases of the female genital tract; Z90.49 Acquired absence of other specified parts of digestive tract; Z98.890 Other specified postprocedural states
CPT/HCPCS: 36415; 71045; 80048; 80053; 80306; 81001; 82550; 83735; 84100; 85025; 85027; 85610; 85730; 87086; 93005; 94761; 96361; 96374; 99285; G0378; A9270; J2930; J7030; S4990

== ENCOUNTER 2023-06-13 13:34 | Emergency (ER) | payer MEDICAID, SELFPAY ==
[2023-06-13 13:38] VITALS: BP 105/71; PULSE 91; RESP 18; TEMP 36.7; O2SAT 97; BMI 31.5
--- NOTE | 2023-06-16 11:19 | W.ED.CHARTNO ---
ED Chart Note Chart Note Details Date: 06/13/23 Details: Patient was not seen by a provider prior to refusal of service
== END 2023-06-13 14:01 | disposition home or self-care (01) ==
PROVIDERS: Emergency Provider Student in an Organized Health Care Education/Training Program; PCP Family Medicine
DX: Z53.21 Procedure and treatment not carried out due to patient leaving prior to being seen by health care provider (principal)

== ENCOUNTER 2023-06-15 09:36 | Outpatient (CLI) | payer MEDICAID, SELFPAY ==
--- NOTE | 2023-06-15 10:15 | CRLHL7_ITS ---
For Patients: As a result of the Cures Act, medical imaging exams and procedure reports are released immediately into your electronic medical record. You may view this report before your referring provider. If you have questions, please contact your health care provider. INDICATION: Thyroid nodules. TECHNIQUE: Ultrasound thyroid with mccabe-scale and color Doppler analysis. COMPARISON: 02/23/2023. FINDINGS: Right lobe: 5.2 x 1.6 x 1.7 cm. Lesion 1: Solid and cystic nodule upper pole right thyroid lobe measures 12 x 7 x 11 millimeters, previously measuring 12 millimeters. Lesion 2: Hypoechoic nodule lower pole right thyroid lobe at the medial aspect measuring 5 x 5 x 7 millimeters. Left lobe: 4.8 x 1.3 x 1.7 cm. Lesion 1: Cystic nodule measures 6 x 5 x 5 millimeters, previously measuring 6 millimeters. Isthmus: 5 millimeters. Echotexture of the thyroid parenchyma is heterogeneous. Color Doppler analysis demonstrates normal vascularity. No evidence of lymphadenopathy or parathyroid mass. IMPRESSION: Bilateral thyroid nodules. FNA not indicated at this time. - ACR TI-RADS [email or web address] TR1: Benign No FNA TR2: Not Suspicious No FNA TR3: Mildly Suspicious FNA if greater than or equal to 2.5 cm Follow if greater than or equal to 1.5 cm TR4: Moderately Suspicious FNA if greater than or equal to 1.5 cm Follow if greater than or equal to 1 cm TR5: Highly Suspicious FNA if greater than or equal to 1 cm Follow if greater than or equal to 0.5 cm Dictated by Burton Adams MD @ 06/15/2023 1:19:58 PM (Electronically Signed)
== END 2023-06-15 09:37 | disposition home or self-care (01) ==
PROVIDERS: PCP Family Medicine; Visit Provider Family Medicine
DX: E04.1 Nontoxic single thyroid nodule (principal)
CPT/HCPCS: 76536

== ENCOUNTER 2023-06-16 10:48 | Outpatient (CLI) | payer MEDICAID, SELFPAY ==
--- NOTE | 2023-06-16 10:30 | CRLHL7_ITS ---
For Patients: As a result of the Century Cures Act, medical imaging exams and procedure reports are released immediately into your electronic medical record. You may view this report before your referring provider. If you have questions, please contact your health care provider. Indication: Thyrotoxicosis Technique: Nuclear medicine thyroid uptake and scan per protocol after the oral administration of 270 microcuries of I 123 Comparison: Thyroid ultrasound June 15, 2023 Findings: 24 hour radioactive iodine uptake is 30 percent, normal is 10-30 percent. Images demonstrate diffuse homogeneous uptake throughout the thyroid without hot or cold nodules. Impression: Normal study with note that the radioactive iodine uptake is at the upper limits of normal. Dictated by Angel Alvarez MD @ 06/16/2023 1:50:52 PM (Electronically Signed)
== END 2023-06-16 10:49 | disposition home or self-care (01) ==
LOC: NM 10:49
PROVIDERS: PCP Family Medicine; Visit Provider Family Medicine
DX: E05.90 Thyrotoxicosis, unspecified without thyrotoxic crisis or storm (principal); E04.1 Nontoxic single thyroid nodule
CPT/HCPCS: 78014; A9509

== ENCOUNTER 2023-08-05 15:19 | Outpatient (CLI) | payer MEDICAID, SELFPAY | END 2023-08-05 15:20 | disposition home or self-care (01) | LOC: NFLDREF 08-08 13:24 | PROVIDERS: PCP Family Medicine; Referring Provider Family Medicine; Visit Provider Family Medicine | DX: E55.9 Vitamin D deficiency, unspecified (principal) | CPT/HCPCS: 82306 ==

== ENCOUNTER 2023-08-07 17:26 | Outpatient (CLI) | payer MEDICAID, SELFPAY | END 2023-08-07 17:27 | disposition home or self-care (01) | LOC: AMB 08-10 12:14 | PROVIDERS: PCP Family Medicine; Visit Provider Emergency Medicine Emergency Medical Services | DX: R07.89 Other chest pain (principal) | CPT/HCPCS: A0425; A0427 ==

== ENCOUNTER 2023-08-07 17:59 | Emergency (ER) | payer MEDICAID, SELFPAY ==
[2023-08-07] VITALS (20 sets, daily range): BP systolic 100–116; BP diastolic 64–89; PULSE 60–96; RESP 18; TEMP 36.9; O2SAT 94–97; BMI 31.6
--- NOTE | 2023-08-07 18:32 | ED_ITS ---
HPI - General Adult General Chief complaint: Weakness Stated complaint: dizziness Time Seen by Provider: 08/07/23 18:05 Source: patient Mode of arrival: ambulatory Limitations: no limitations History of Present Illness HPI narrative: 43-year-old female coming in today complaining of not feeling right. She states that she was taking a bath approximately 4-1/2 hours ago when she felt very lightheaded and dizzy. She felt like she was going to throw up but did not. [place] like she was going to pass out but did not. She asked her friend to help her get out of the tub and they checked her blood pressure and it was 150 systolic and her pulse was 116. She stated that this occurred around 2:00 p.m., she did not take her noon dose of propanolol. Patient has a past medical history that is significant for neuropathy, diarrhea, insomnia, ADHD, chronic pain, history of methamphetamine abuse, thyroid nodule with hyperthyroidism. She did present with thyroid storm about 6 weeks ago. The episode lasted anywhere from 15-30 minutes and then went away. She states that this reminds her of that episode 6 week ago because she was having diarrhea before that happened and she states she has been having diarrhea multiple times per day for the last 3 days. However, this time the stools are not as watery or S frequent as they were before. She also states that she felt her heart racing skipped beats this afternoon just like it did a month ago. She states that now it feels better but she is complaining of chest pressure. She states that she also has been coughing. She denies feeling short of breath. She is currently not nauseated, again no vomiting. The chest pressure radiates back and forth between the left and the right side, then radiates into her epigastric region. It lasts a few minutes and then goes away. She continues to live at a sober home when this is going well. She has been taking propanolol 3 times per day as well as methimazole daily. Her review of systems is grossly positive for headaches, hazy vision, fatigue, tremulousness and jitteriness, chest pressure, cough, mild abdominal discomfort, dizziness and lightheadedness. Patient did have an IUD placed 2 weeks ago was having some spotting that has recently stopped. At this moment patient does feel much better: She is no longer feeling her heart race. But, she does complain of chest pressure that comes and goes, feeling her heartbeat in her fingertips, feeling jittery but not tremulous and just not ?right?. She did have a follow-up appointment with [facility]. She states that she does not have another appointment for 6 months. Related Data Home Medications Medication Instructions Recorded Confirmed albuterol sulfate 90 mcg/actuation inhalation 05/14/23 06/01/23 aerosol inhaler (Ventolin HFA) fluticasone 100 mcg-salmeterol 50 1 ea inhalation Q12H 05/14/23 08/07/23 mcg/dose blistr powdr for inhalation (Advair Diskus) polyethylene glycol 3350 17 17 g PO DAILY 05/14/23 06/13/23 gram/dose oral powder clonidine HCl 0.3 mg tablet 0.3 mg PO TID PRN 06/01/23 08/07/23 epinephrine 0.3 mg/0.3 mL 0.3 mg IM ONCE PRN 06/01/23 08/07/23 injection, auto-injector melatonin 10 mg tablet 20 mg PO QHS PRN 06/01/23 08/07/23 ondansetron 4 mg disintegrating 4 mg PO Q8H 06/01/23 08/07/23 tablet TAB-A-NIKKI 08/07/23 methimazole 5 mg tablet 10 mg PO DAILY 08/07/23 08/07/23 trazodone 50 mg tablet mg PO 08/07/23 Previous Rx's Medication Instructions Recorded blood pressure monitor #1 ea 06/01/23 hydrochlorothiazide 12.5 mg tablet 12.5 mg PO DAILY #90 tabs 06/01/23 omeprazole 40 mg capsule,delayed 40 mg PO DAILY #90 caps 06/01/23 release prazosin 1 mg capsule 1 mg PO QHS #90 caps 06/01/23 prazosin 2 mg capsule 2 mg PO QPM #90 caps 06/01/23 topiramate 25 mg tablet 25 mg PO DAILY #90 tabs 06/01/23 loperamide 2 mg capsule 2 mg PO Q6H PRN loose stool #30 06/12/23 (Anti-Diarrheal (loperamide)) caps lorazepam 1 mg tablet (Ativan) 0.5 mg (1/2 x 1 mg) PO Q12H PRN 06/12/23 #10 tabs nicotine 21 mg/24 hr daily 1 patch transdermal Q24H #30 ea 06/12/23 transdermal patch atomoxetine 80 mg capsule 80 mg PO QAM #30 caps 08/04/23 cholecalciferol (vitamin D3) 50 50 mcg PO DAILY #90 caps 08/04/23 mcg (2,000 unit) capsule gabapentin 300 mg capsule 300 mg PO QDAY #90 caps 08/04/23 multivitamin with folic acid 400 1 tab PO DAILY #90 tabs 08/04/23 mcg tablet (Tab-A-Nikki) propranolol 20 mg tablet 20 mg PO TID #120 tabs 08/04/23 trazodone 100 mg tablet 200 mg (2 x 100 mg) PO QDAY #180 08/04/23 tabs Allergies Allergy/AdvReac Type Severity Reaction Status Date / Time mold Allergy Severe Anaphylaxis Verified 06/13/23 13:44 almond Allergy Mild Hives Verified 06/13/23 13:44 loratadine [From Claritin] Allergy Mild Hives Verified 06/13/23 13:44 sumatriptan [From Imitrex] Allergy Mild Hives Verified 06/13/23 13:44 morphine AdvReac Mild Palpitation Verified 06/13/23 13:44 s Review of Systems Status of ROS: Reports: 10 or more systems reviewed and unremarkable except as noted in History and below [facility] Medical History Lower extremity edema ?R60.0 - Localized edema (ICD-10) Chronic pain ?G89.29 - Other chronic pain (ICD-10) Endometriosis ?N80.9 - Endometriosis, unspecified (ICD-10) Fatty liver ?K76.0 - Fatty (change of) liver, not elsewhere classified (ICD-10) 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 - Other stimulant abuse, in remission (ICD-10) Irregular menses ?N92.6 - Irregular menstruation, unspecified (ICD-10) Uterine fibroid ?D25.9 - Leiomyoma of uterus, unspecified (ICD-10) Thyroid nodule ?E04.1 - Nontoxic single thyroid nodule (ICD-10) Intermittent asthma ?J45.20 - Mild intermittent asthma, uncomplicated (ICD-10) GERD (gastroesophageal reflux disease) ?K21.9 - Gastro-esophageal reflux disease without esophagitis (ICD-10) Chronic constipation ?K59.09 - Other constipation (ICD-10) History of abnormal cervical Pap smear ?Z87.42 - Personal history of other diseases of the female genital tract (ICD-10) Anxiety ?F41.9 - Anxiety disorder, unspecified (ICD-10) Surgical History History of ovarian cystectomy (2001) ?Z98.890 - Other specified postprocedural states (ICD-10) ?Z87.42 - Personal history of other diseases of the female genital tract (ICD-10) History of cryosurgery (2000) ?Z98.890 - Other specified postprocedural states (ICD-10) History of appendectomy (2007) ?Z90.49 - Acquired absence of other specified parts of digestive tract (ICD- 10) History of laparoscopic cholecystectomy (2014) ?Z90.49 - Acquired absence of other specified parts of digestive tract (ICD- 10) History of esophagogastroduodenoscopy (EGD) (2020) ?Z98.890 - Other specified postprocedural states (ICD-10) History of open reduction and internal fixation (ORIF) procedure (2021) ?Z98.890 - Other specified postprocedural states (ICD-10) History of colonoscopy (2013) ?Z98.890 - Other specified postprocedural states (ICD-10) Family History Mother Heart failure Asthma Depression Father Heart failure Paternal Grandfather Liver disease Family/Other Breast cancer Social History Narrative: Single, living in sober recovery house in [place], not working, no children Smokes half a pack a day, 20 pack years No alcohol or methamphetamine since January 2023 Exercise twice a week walking What is your current living situation?: I presently have a place to live Problems where you live: no known problems Problems where you live details: Lives in sober living facility. No known problems In the past 12 months, utilities in danger of being shut off: no In past 12 months, lack of transportation kept you from medical appts, meetings, work, or getting things needed for daily living: no In the past 12 mos, have been you worried that your food would run out before you had money to buy more?: never true In the past 12 mos, the food you bought just didn't last and you didn't have money to buy more?: never true Highest level of school completed/degree received: high school graduate Smoking Status: Current every day smoker What tobacco products do you use: cigarettes Do you use any of these nicotine containing products: None Second hand tobacco smoke exposure: No How often do you have a drink containing alcohol: never How often do you have six or more drinks on one occasion: Never AUDIT-C Alcohol total score: 0 Non-prescribed substance use: former substance user and amphetamines/methamphetamines Caffeine: Yes How often does anyone, including family, friends and others, physically hurt you : never How often does anyone, including family, friends and others, insult or talk down to you: never How often does anyone, including family, friends and others, threaten you with harm: never How often does anyone, including family, friends and others, scream or curse at you: never Little interest or pleasure in doing things: not at all Feeling down, depressed, or hopeless: not at all service: No Exam Narrative: Exam Narrative: Well-nourished well-developed patient in no acute distress but anxious. She is not agitated. Alert and oriented x3. Answers questions appropriately. Mood and affect are appropriate. Thoughts are goal oriented and rational. No tangential or magical thinking noted. Patient speaks in full sentences without needing to catch her breath. Speech is not slurred or pressured. Patient is not tachycardic. Blood pressure is within normal range at 116/77 which is consistent with previous blood pressures. There is no tremor. Temperature is normal. Psych: There is no evidence of confusion or altered mental status. HEENT: Normocephalic atraumatic. Pupils are equally round reactive to light. Extraocular muscles are intact. Conjunctivae are moist without any icterus noted. Moist mucous membranes. Posterior pharynx is normal. Neck is supple. Poor dentition. There is no lid lag noted. Cardiovascular: Heart is regular rate and rhythm S1 and S2 are present without any murmurs. Lungs: Clear to auscultation bilaterally no wheezes rhonchi or rales are appreciated. Patient takes deep breaths without any discomfort. Abdomen: Soft and nontender nondistended with normal bowel sounds. No guarding or rebound. Extremities: Bilateral lower extremities are without edema. Normal DP and PT pulses. Skin: Well perfused without any obvious rashes. Const: Vital Signs, click to edit/add: Vital Signs - 24 hr 08/07/23 18:01 08/07/23 18:08 08/07/23 18:09 Temperature 98.4 F Pulse Rate 71 68 Pulse Rate [Pulse Oximeter] 66 Respiratory Rate 18 Blood Pressure 116/77 Blood Pressure [Ri ght Upper Arm] 116/77 Pulse Oximetry 97 96 97 Oxygen Delivery Me thod Room Air 08/07/23 18:15 08/07/23 18:30 08/07/23 18:31 Temperature Pulse Rate 71 69 Pulse Rate [Pulse Oximeter] Respiratory Rate Blood Pressure Blood Pressure [Ri ght Upper Arm] Pulse Oximetry 96 96 95 Oxygen Delivery Me thod 08/07/23 18:32 08/07/23 18:45 08/07/23 19:00 Temperature Pulse Rate 72 67 66 Pulse Rate [Pulse Oximeter] Respiratory Rate Blood Pressure 100/89 Blood Pressure [Ri ght Upper Arm] Pulse Oximetry 97 97 96 Oxygen Delivery Me thod 08/07/23 19:02 08/07/23 19:15 08/07/23 19:30 Temperature Pulse Rate 62 61 61 Pulse Rate [Pulse Oximeter] Respiratory Rate Blood Pressure 109/69 Blood Pressure [Ri ght Upper Arm] Pulse Oximetry 95 95 95 Oxygen Delivery Me thod 08/07/23 19:32 08/07/23 19:33 08/07/23 19:45 Temperature Pulse Rate 61 60 61 Pulse Rate [Pulse Oximeter] Respiratory Rate Blood Pressure 104/68 Blood Pressure [Ri ght Upper Arm] Pulse Oximetry 95 94 95 Oxygen Delivery Me thod 08/07/23 20:00 08/07/23 20:02 08/07/23 20:15 Temperature Pulse Rate 65 66 66 Pulse Rate [Pulse Oximeter] Respiratory Rate Blood Pressure 100/66 Blood Pressure [Ri ght Upper Arm] Pulse Oximetry 97 97 96 Oxygen Delivery Me thod 08/07/23 20:31 Temperature Pulse Rate 88 Pulse Rate [Pulse Oximeter] Respiratory Rate Blood Pressure Blood Pressure [Ri ght Upper Arm] Pulse Oximetry Oxygen Delivery Me thod Course Course ED Course: EKG, read by me, shows normal sinus rhythm with a pulse of 70. CBC is entirely normal. Chemistries show potassium slightly low at 3.5. Normal sodium, normal kidney function. LFTs are unremarkable. Magnesium is normal. Normal troponin and CRP. UA is unremarkable. test is negative. TSH remains low at less than 0.015. While here patient's pulse fluctuated between 60 and 70. She remained asymptomatic as far as feeling dizzy, having chest pain or nausea or vomiting. We did ambulate the patient to see if her pulse would increase - it did go up to 96 but she remained without dizziness or lightheadedness. She is able to walk without difficulty. Orthostatic vital signs were done and mild blood pressure remains stable between lying, sitting and standing, her pulse does go up again from 60 lying down, to 66 with sitting to 96 with standing - but she remains asymptomatic when this occurs, denies feeling that her heart is racing. I do not believe that her history nor physical exam supports the diagnosis of a thyroid storm at this time. I also do not think that her symptoms are consistent with coronary artery disease or other life-threatening intrathoracic illness such as pneumonia, pneumothorax, PE, or aortic dissection. Discussed with the patient her compliance with taking her medications and she states that she has been taking everything as prescribed. She does not however have a follow-up plan or a follow-up appointment scheduled with endocrinology that she is aware of. Vital Signs Vital signs: Initial Vital Signs Temperature 98.4 F 08/07/23 18:01 Temperature Source Temporal Artery Scan 08/07/23 18:01 Pulse Rate 66 08/07/23 18:01 Respiratory Rate 18 08/07/23 18:01 Blood Pressure 116/77 08/07/23 18:01 Blood Pressure Mean 90 08/07/23 18:01 Blood Pressure Position Supine 08/07/23 18:01 Pulse Oximetry 97 08/07/23 18:01 Oxygen Delivery Method Room Air 08/07/23 18:01 Vital Signs Temperature 98.4 F 08/07/23 18:01 Pulse Rate 66 08/07/23 18:01 Respiratory Rate 18 08/07/23 18:01 Blood Pressure 116/77 08/07/23 18:01 Pulse Oximetry 97 08/07/23 18:01 Oxygen Delivery Method Room Air 08/07/23 18:01 Temperature 98.4 F 08/07/23 18:01 Pulse Rate 88 08/07/23 20:31 Respiratory Rate 18 08/07/23 18:01 Blood Pressure 100/66 08/07/23 20:02 Pulse Oximetry 96 08/07/23 20:15 Oxygen Delivery Method Room Air 08/07/23 18:01 Medical Decision Making MDM Narrative Medical decision making narrative: 43-year-old female with hyperthyroidism, recent episode of dizziness and tachycardia earlier in the day after missed dose of propanolol. At this time patient is currently asymptomatic with normal vital signs. Recommend monitoring her pulse at home, continuing medication as prescribed and following up with her medical team as needed. Certainly return to the ER with any concerns. Medical Records Medical records reviewed: Yes I reviewed the patient's medical records Lab Data Lab results reviewed: Yes I reviewed the patient's lab results Labs: Lab Results 08/07/23 08/07/23 Range/Units 18:02 18:40 WBC 9.92 (4.50-11.00) K/uL RBC 4.86 (4.00-5.20) m/uL Hgb 13.5 (12.0-16.0) gm/dL Hct 40.5 (33.0-51.0) % MCV 83 (80-100) fL MCH 28 (26-34) pg MCHC 33 (32-36) gm/dL RDW Coeff of Kenzie 12.6 (11.5-15.5) % Plt Count 345 (140-440) K/uL Neut % (Auto) 62.9 (42.0-72.0) % Lymph % (Auto) 28.2 (20-44) % [place] % (Auto) 5.6 (0.0-11.0) % Eos % (Auto) 3.0 (0.0-7.0) % Baso % (Auto) 0.2 (0.0-3.0) % Neut # (Auto) 6.23 (1.7-7.0) K/uL Lymph # (Auto) 2.80 (0.90-2.90) K/uL [place] # (Auto) 0.60 (0.00-0.90) K/UL Eos # (Auto) 0.30 (0.00-0.50) K/uL Baso # (Auto) 0.02 (0.00-0.30) K/uL Abs Immat Gran (auto) 0.01 (0.00-0.30) K/uL Imm/Tot Granulo (auto) 0.1 % Sodium 136 (135-149) mmol/L Potassium 3.5 L (3.6-5.1) mmol/L Chloride 104 (96-114) mmol/L Carbon Dioxide 25 (20-32) mmol/L Anion Gap 7 (7-15) mEq/L BUN 17 (5-24) mg/dL Creatinine 0.9 (0.5-1.5) mg/dL Estimated Creat Clear 73.27 Estimated GFR 82 ml/min Glucose 91 (60-115) mg/dL Calcium 9.3 (8.4-10.6) mg/dL Magnesium 2.1 (1.5-2.6) mg/dL Total Bilirubin 0.3 (0.1-1.5) mg/dL Direct Bilirubin 0.2 (0.0-0.5) mg/dL AST 25 (12-35) U/L ALT 46 H (4-35) U/L Alkaline Phosphatase 102 (40-150) U/L Troponin I < 0.01 L (0.01-0.04) ng/mL C-Reactive Protein < 0.5 L (0.5-1.0) mg/dL Total Protein 7.2 (6.0-8.3) g/dL Albumin 4.2 (3.3-5.0) g/dL TSH < 0.015 L (0.270-4.20) uIU/mL Urine Color Yellow (Yellow) Urine Appearance Clear (Clear) Urine pH 6.0 (5.0-8.5) Ur Specific Driver 1.025 (1.000-1.030) Urine Protein Negative (Negative) Urine Glucose (UA) Negative (Negative) Urine Ketones Negative (Negative) Urine Blood 1+ A (Negative) Urine Nitrite Negative (Negative) Urine Bilirubin Negative (Negative) Urine Urobilinogen 0.2 (0.2-1.0) Ur Leukocyte Esterase Negative (Negative) Urine RBC 0-2 (0-2) Urine WBC 0-2 (0-5) Ur Squamous Epith Cells Few (None-Few) Urine Bacteria None (None) Urine HCG, Qual Negative (Negative) SARS-CoV-2 (PCR) Negative SARS-CoV-2 (Negative) Influenza Type A (PCR) Negative PCR FLU A (Negative) Influenza Type B (PCR) Negative PCR FLU B (Negative) RSV (PCR) Negative PCR RSV (Negative) ECG Data Attestation: I personally reviewed and interpreted this ECG as follows: Discharge Plan Discharge Clinical Impression: Hyperthyroidism Patient Disposition: Home, Self-Care Condition: Stable Additional Instructions: Take for panel all as prescribed. Make sure to stay well hydrated. Return to the ER if you feel like your heart is beating fast or symptoms of dizziness return. You should call your research project coordinator 1st thing in the morning to see what next steps are for your treatment. Prescriptions: No Action clonidine HCl 0.3 mg tablet 0.3 mg PO TID PRN epinephrine 0.3 mg/0.3 mL auto-injector 0.3 mg IM ONCE PRN Rx Instructions: as a single dose; may repeat once melatonin 10 mg tablet 20 mg PO QHS PRN ondansetron 4 mg tablet,disintegrating 4 mg PO Q8H omeprazole 40 mg capsule,delayed release(DR/EC) 40 mg PO DAILY Qty: 90 3RF prazosin 1 mg capsule 1 mg PO QHS Qty: 90 1RF prazosin 2 mg capsule 2 mg PO QPM Qty: 90 1RF topiramate 25 mg tablet 25 mg PO DAILY Qty: 90 1RF hydrochlorothiazide 12.5 mg tablet 12.5 mg PO DAILY Qty: 90 3RF nicotine 21 mg/24 hr Patch 24 Hour 1 patch transdermal Q24H Qty: 30 0RF loperamide [Anti-Diarrheal (loperamide)] 2 mg capsule 2 mg PO Q6H PRN (Reason: loose stool) Qty: 30 0RF lorazepam [Ativan] 1 mg tablet 0.5 mg PO Q12H PRNQty: 10 0RF methimazole 5 mg tablet 10 mg PO DAILY TAB-A-NIKKI trazodone 50 mg tablet PO fluticasone propion-salmeterol [Advair Diskus] 100-50 mcg/dose blister with device 1 ea INHALATION Q12H polyethylene glycol 3350 17 gram/dose powder 17 g PO DAILY albuterol sulfate [Ventolin HFA] 90 mcg/actuation HFA aerosol inhaler inhalation (DME) blood pressure monitor Kit See Rx Instructions .Route Qty: 1 0RF Rx Instructions: As directed atomoxetine 80 mg capsule 80 mg PO QAM Qty: 30 0RF propranolol 20 mg tablet 20 mg PO TID Qty: 120 0RF Rx Instructions: may add one additional dose if HR is >120. Wait at least 1 hour between doses. trazodone 100 mg tablet 200 mg PO QDAY Qty: 180 0RF gabapentin 300 mg capsule 300 mg PO QDAY Qty: 90 0RF multivitamin with folic acid [Tab-A-Nikki] 400 mcg tablet 1 tab PO DAILY Qty: 90 3RF cholecalciferol (vitamin D3) 50 mcg (2,000 unit) capsule 50 mcg PO DAILY Qty: 90 0RF Follow Up/Referrals: Tahmina Gandhi MD [Primary Care Provider] - Stand Alone Forms: [employer] Info Instructions
[2023-08-07 18:43] LABS: Appearance Urine Clear (Clear); Bilirubin Urine Negative (Negative); Blood Urine 1+ (Negative); Color Urine Yellow (Yellow); Glucose Urine Negative (Negative); Ketones Urine Negative (Negative); Leukocyte Esterase Urine Negative (Negative); Nitrite Urine Negative (Negative); Protein Urine Negative (Negative); Specific Gravity Urine 1.025 (1.000-1.030); Urobilinogen Urine 0.2 (0.2-1.0)
[2023-08-07 18:44] LABS: Ur HCG Qualitative* Negative (Negative)
[2023-08-07 18:49] LABS: Basophils Absolute Auto 0.02 K/uL (0.00-0.30); Basophils Percent Auto 0.2 % (0.0-3.0); Hematocrit 40.5 % (33.0-51.0); Hemoglobin* 13.5 gm/dL (12.0-16.0); Immature Granulocytes Abs Auto 0.01 K/uL (0.00-0.30); Immature Granulocytes Pct Auto 0.1 %; Lymphocytes Percent Auto 28.2 % (20-44); Mean Corpuscular HGB Conc 33 gm/dL (32-36); Mean Corpuscular Hemoglobin 28 pg (26-34); Mean Corpuscular Volume 83 fL (80-100); Monocytes Percent Auto 5.6 % (0.0-11.0); Neutrophils Absolute Auto 6.23 K/uL (1.7-7.0); Neutrophils Percent Auto 62.9 % (42.0-72.0); Platelet Count* 345 K/uL (140-440); RDW Coefficient of Variation % 12.6 % (11.5-15.5); Red Blood Count 4.86 m/uL (4.00-5.20); White Blood Count* 9.92 K/uL (4.50-11.00)
[2023-08-07 19:00] LABS: Slide Review Reflex No
[2023-08-07 19:04] LABS: Albumin* 4.2 g/dL (3.3-5.0); Chloride* 104 mmol/L (96-114)
[2023-08-07 19:05] LABS: Potassium* 3.5 mmol/L (3.6-5.1); Sodium* 136 mmol/L (135-149)
[2023-08-07 19:07] LABS: Anion Gap 7 mEq/L (7-15); Aspartate Amino Transferase* 25 U/L (12-35); Bilirubin Direct* 0.2 mg/dL (0.0-0.5); Bilirubin Total* 0.3 mg/dL (0.1-1.5); Carbon Dioxide* 25 mmol/L (20-32); Creatinine* 0.9 mg/dL (0.5-1.5); Est. Creatinine Clearance* 73.27; Estimated Glomerular Filt Rate 82 ml/min; Total Protein* 7.2 g/dL (6.0-8.3)
[2023-08-07 19:08] LABS: Alanine Aminotransferase* 46 U/L (4-35); Alkaline Phosphatase* 102 U/L (40-150); Blood Urea Nitrogen* 17 mg/dL (5-24); Calcium* 9.3 mg/dL (8.4-10.6); Glucose* 91 mg/dL (60-115); Magnesium* 2.1 mg/dL (1.5-2.6)
[2023-08-07 19:09] LABS: RBC Urine 0-2 (0-2); Squamous Epithelial Cell Urine Few (None-Few); WBC Urine 0-2 (0-5)
[2023-08-07 19:19] LABS: C Reactive Protein* < 0.5 mg/dL (0.5-1.0)
[2023-08-07 19:24] LABS: Troponin I* < 0.01 ng/mL (0.01-0.04)
[2023-08-07 19:35] LABS: PCR FLU A Negative PCR FLU A (Negative); PCR FLU B Negative PCR FLU B (Negative); PCR RSV Negative PCR RSV (Negative); SARS PCR* Negative SARS-CoV-2 (Negative)
[2023-08-07 20:00] LABS: Thyroid Stimulating Hormone* < 0.015 uIU/mL (0.270-4.20)
--- NOTE | 2023-08-07 20:32 | ED.NURSE ---
Patient's pulse between 96-98 with ambulation.
== END 2023-08-07 21:33 | disposition home or self-care (01) ==
PROVIDERS: Emergency Provider Family Medicine; PCP Family Medicine
DX: E05.90 Thyrotoxicosis, unspecified without thyrotoxic crisis or storm (principal)
CPT/HCPCS: 36415; 80048; 80076; 81001; 81025; 83735; 84443; 84484; 85025; 86140; 87631; 93005; 94761; 99284

== ENCOUNTER 2023-08-11 17:47 | Outpatient (REF) | payer MEDICAID, SELFPAY ==
[2023-08-11 21:24] LABS: Free T4 Free Thyroxine* 1.32 ng/dL (0.70-1.85)
[2023-08-11 21:51] LABS: Thyroid Stimulating Hormone* < 0.015 uIU/mL (0.270-4.20)
[2023-08-14 00:11] LABS: Total T3 105 ng/dL (80-200)
== END 2023-08-11 17:48 | disposition home or self-care (01) ==
LOC: NPINS 17:47
PROVIDERS: PCP Family Medicine; Visit Provider Internal Medicine Endocrinology, Diabetes & Metabolism
DX: E03.9 Hypothyroidism, unspecified (principal)
CPT/HCPCS: 84439; 84443; 84480

== ENCOUNTER 2023-08-23 17:17 | Outpatient (CLI) | payer MEDICAID, SELFPAY | END 2023-08-23 17:18 | disposition home or self-care (01) | LOC: AMB 09-01 02:33 | PROVIDERS: PCP Family Medicine; Visit Provider Student in an Organized Health Care Education/Training Program | DX: R07.89 Other chest pain (principal); R42 Dizziness and giddiness | CPT/HCPCS: A0425; A0427 ==

== ENCOUNTER 2023-08-23 17:48 | Emergency (ER) | payer MEDICAID, SELFPAY ==
[2023-08-23] VITALS (24 sets, daily range): BP systolic 93–115; BP diastolic 55–71; PULSE 63–72; RESP 16; TEMP 36.6; O2SAT 94–99
--- NOTE | 2023-08-23 18:08 | XR_ITS ---
Patient: ANA MAN Facility:?[facility] Patient ID:?[id number] Site Patient ID:?[id number]. Site :?[id number] Study:?XRay-Chest 2V-08/23/2023 7:13:50 PM Ordering Physician:SANGITA Final Report: INDICATION: Right-sided chest pain. TECHNIQUE: Chest radiographs, 2 views. COMPARISON: Chest radiograph 06/11/2023. FINDINGS: Cardiovascular/Mediastinum: Normal heart size. Unremarkable. Lungs: No focal consolidation. Airways: Trachea remains midline. Pleura: No pleural effusions or pneumothorax. Bones: No acute osseous abnormalities. Minimal degenerative changes of the thoracic spine. Upper abdomen: Unremarkable. IMPRESSION: No acute cardiopulmonary process. Stable examination. Dictated by Ke Harden MD @ 08/23/2023 7:35:20 PM Signed by:?Ke Harden MD @08/23/2023 7:35:20 PM (Electronic Signature)
--- NOTE | 2023-08-23 18:19 | ED_ITS ---
HPI - General Adult General Date Seen: 08/23/23 Chief complaint: Chest Pain Stated complaint: Dizzy Time Seen by Provider: 08/23/23 17:50 Source: patient and EMS Mode of arrival: EMS Limitations: no limitations History of Present Illness HPI narrative: Patient is a 43-year-old female presenting to the emergency department for multiple complaints. States about 16:45 she is taking a bath when she became lightheaded and dizzy. She needed help to get out of the bath. She then began to have right-sided it upper chest pain. The chest pain continues she still feels fatigued at this time. Notices the symptoms worse with deep breaths. States she has had similar symptoms 1 week ago which resolved on their own and few months ago when she had thyroid storm and she required hospitalization. She is having some mild shortness of breath at this time. Also admits to mild nausea but denies vomiting. He states she feels very tired. Has been taking her home medication as prescribed. Recently had her methimazole increased 1 week ago. Denies fevers, chills, abdominal pain, diarrhea, constipation. She does states she is having a mild headache right now. Admits to not having much oral intake over the past few days due to not having much of an appetite. She does think she is a little dehydrated. Related Data Home Medications Medication Instructions Recorded Confirmed albuterol sulfate 90 mcg/actuation inhalation 05/14/23 06/01/23 aerosol inhaler (Ventolin HFA) fluticasone 100 mcg-salmeterol 50 1 ea inhalation Q12H 05/14/23 08/07/23 mcg/dose blistr powdr for inhalation (Advair Diskus) polyethylene glycol 3350 17 17 g PO DAILY 05/14/23 06/13/23 gram/dose oral powder clonidine HCl 0.3 mg tablet 0.3 mg PO TID PRN 06/01/23 08/07/23 epinephrine 0.3 mg/0.3 mL 0.3 mg IM ONCE PRN 06/01/23 08/07/23 injection, auto-injector melatonin 10 mg tablet 20 mg PO QHS PRN 06/01/23 08/07/23 ondansetron 4 mg disintegrating 4 mg PO Q8H 06/01/23 08/07/23 tablet TAB-A-NIKKI 08/07/23 methimazole 5 mg tablet 10 mg PO DAILY 08/07/23 08/07/23 trazodone 50 mg tablet mg PO 08/07/23 Previous Rx's Medication Instructions Recorded blood pressure monitor #1 ea 06/01/23 hydrochlorothiazide 12.5 mg tablet 12.5 mg PO DAILY #90 tabs 06/01/23 omeprazole 40 mg capsule,delayed 40 mg PO DAILY #90 caps 06/01/23 release prazosin 1 mg capsule 1 mg PO QHS #90 caps 06/01/23 prazosin 2 mg capsule 2 mg PO QPM #90 caps 06/01/23 topiramate 25 mg tablet 25 mg PO DAILY #90 tabs 06/01/23 loperamide 2 mg capsule 2 mg PO Q6H PRN loose stool #30 06/12/23 (Anti-Diarrheal (loperamide)) caps lorazepam 1 mg tablet (Ativan) 0.5 mg (1/2 x 1 mg) PO Q12H PRN 06/12/23 #10 tabs nicotine 21 mg/24 hr daily 1 patch transdermal Q24H #30 ea 06/12/23 transdermal patch atomoxetine 80 mg capsule 80 mg PO QAM #30 caps 08/04/23 cholecalciferol (vitamin D3) 50 50 mcg PO DAILY #90 caps 08/04/23 mcg (2,000 unit) capsule gabapentin 300 mg capsule 300 mg PO QDAY #90 caps 08/04/23 multivitamin with folic acid 400 1 tab PO DAILY #90 tabs 08/04/23 mcg tablet (Tab-A-Nikki) propranolol 20 mg tablet 20 mg PO TID #120 tabs 08/04/23 trazodone 100 mg tablet 200 mg (2 x 100 mg) PO QDAY #180 08/04/23 tabs Allergies Allergy/AdvReac Type Severity Reaction Status Date / Time mold Allergy Severe Anaphylaxis Verified 06/13/23 13:44 almond Allergy Mild Hives Verified 06/13/23 13:44 loratadine [From Claritin] Allergy Mild Hives Verified 06/13/23 13:44 sumatriptan [From Imitrex] Allergy Mild Hives Verified 06/13/23 13:44 morphine AdvReac Mild Palpitation Verified 06/13/23 13:44 s Review of Systems Status of ROS: Reports: 10 or more systems reviewed and unremarkable except as noted in History and below PFSH PFS Medical History Lower extremity edema ?R60.0 - Localized edema (ICD-10) Chronic pain ?G89.29 - Other chronic pain (ICD-10) Endometriosis ?N80.9 - Endometriosis, unspecified (ICD-10) Fatty liver ?K76.0 - Fatty (change of) liver, not elsewhere classified (ICD-10) 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 - Other stimulant abuse, in remission (ICD-10) Irregular menses ?N92.6 - Irregular menstruation, unspecified (ICD-10) Uterine fibroid ?D25.9 - Leiomyoma of uterus, unspecified (ICD-10) Thyroid nodule ?E04.1 - Nontoxic single thyroid nodule (ICD-10) Intermittent asthma ?J45.20 - Mild intermittent asthma, uncomplicated (ICD-10) GERD (gastroesophageal reflux disease) ?K21.9 - Gastro-esophageal reflux disease without esophagitis (ICD-10) Chronic constipation ?K59.09 - Other constipation (ICD-10) History of abnormal cervical Pap smear ?Z87.42 - Personal history of other diseases of the female genital tract (ICD-10) Anxiety ?F41.9 - Anxiety disorder, unspecified (ICD-10) Surgical History History of ovarian cystectomy (2001) ?Z98.890 - Other specified postprocedural states (ICD-10) ?Z87.42 - Personal history of other diseases of the female genital tract (ICD-10) History of cryosurgery (2000) ?Z98.890 - Other specified postprocedural states (ICD-10) History of appendectomy (2007) ?Z90.49 - Acquired absence of other specified parts of digestive tract (ICD- 10) History of laparoscopic cholecystectomy (2014) ?Z90.49 - Acquired absence of other specified parts of digestive tract (ICD- 10) History of esophagogastroduodenoscopy (EGD) (2020) ?Z98.890 - Other specified postprocedural states (ICD-10) History of open reduction and internal fixation (ORIF) procedure (2021) ?Z98.890 - Other specified postprocedural states (ICD-10) History of colonoscopy (2013) ?Z98.890 - Other specified postprocedural states (ICD-10) Family History Mother Heart failure Asthma Depression Father Heart failure Paternal Grandfather Liver disease Family/Other Breast cancer Social History Narrative: Single, living in sober recovery house in [place], not working, no children Smokes half a pack a day, 20 pack years No alcohol or methamphetamine since January 2023 Exercise twice a week walking What is your current living situation?: I presently have a place to live Problems where you live: no known problems Problems where you live details: Lives in sober living facility. No known problems In the past 12 months, utilities in danger of being shut off: no In past 12 months, lack of transportation kept you from medical appts, meetings, work, or getting things needed for daily living: no In the past 12 mos, have been you worried that your food would run out before you had money to buy more?: never true In the past 12 mos, the food you bought just didn't last and you didn't have money to buy more?: never true Highest level of school completed/degree received: high school graduate Smoking Status: Current every day smoker What tobacco products do you use: cigarettes Do you use any of these nicotine containing products: None Second hand tobacco smoke exposure: No How often do you have a drink containing alcohol: never How often do you have six or more drinks on one occasion: Never AUDIT-C Alcohol total score: 0 Non-prescribed substance use: former substance user and amphetamines/methamphetamines Caffeine: Yes How often does anyone, including family, friends and others, physically hurt you : never How often does anyone, including family, friends and others, insult or talk down to you: never How often does anyone, including family, friends and others, threaten you with harm: never How often does anyone, including family, friends and others, scream or curse at you: never Little interest or pleasure in doing things: not at all Feeling down, depressed, or hopeless: not at all service: No Exam Narrative: Exam Narrative: Const: Well-nourished, Well-developed, in mild distress Eyes: PERRL, no conjunctival injection, and symmetrical lids HENT: Atraumatic external nose and ears. Moist mucous membranes. Neck: Symmetric, trachea midline, No thyromegaly. CVS: RRR, No murmurs or gallops. Peripheral pulses 2+ and equal in all extremities RESP: Unlabored respiratory effort. Clear to auscultation bilaterally. GI: Nontender/Nondistended, No rebound or guarding. MSK:Extremities w/o deformity, Normal Active ROM, tenderness right upper chest about a nickel sized area just below mid shaft clavicle Skin: Warm, Dry. No rashes or lesions. Neuro: Normal Muscle tone, No focal neurological deficits. Psych: Awake, Alert, & Oriented x3. Appropriate mood and affect. Const: Vital Signs, click to edit/add: Vital Signs - 24 hr 08/23/23 17:54 08/23/23 17:58 08/23/23 17:59 Temperature 97.9 F Pulse Rate 68 72 Pulse Rate [Pulse Oximeter] 67 Respiratory Rate 16 Blood Pressure 115/70 Blood Pressure [Ri ght Upper Arm] 115/70 Pulse Oximetry 99 99 98 Oxygen Delivery Me thod Room Air 08/23/23 18:00 08/23/23 18:02 08/23/23 18:15 Temperature Pulse Rate 70 70 66 Pulse Rate [Pulse Oximeter] Respiratory Rate Blood Pressure 112/71 Blood Pressure [Ri ght Upper Arm] Pulse Oximetry 99 97 97 Oxygen Delivery Me thod 08/23/23 18:30 08/23/23 18:32 08/23/23 18:45 Temperature Pulse Rate 64 67 66 Pulse Rate [Pulse Oximeter] Respiratory Rate Blood Pressure 107/67 Blood Pressure [Ri ght Upper Arm] Pulse Oximetry 98 96 97 Oxygen Delivery Me thod 08/23/23 19:00 08/23/23 19:02 08/23/23 19:15 Temperature Pulse Rate 65 64 66 Pulse Rate [Pulse Oximeter] Respiratory Rate Blood Pressure 102/62 Blood Pressure [Ri ght Upper Arm] Pulse Oximetry 96 96 96 Oxygen Delivery Me thod 08/23/23 19:30 08/23/23 19:31 08/23/23 19:45 Temperature Pulse Rate 68 67 68 Pulse Rate [Pulse Oximeter] Respiratory Rate Blood Pressure 98/57 L Blood Pressure [Ri ght Upper Arm] Pulse Oximetry 95 95 95 Oxygen Delivery Me thod 08/23/23 20:00 08/23/23 20:01 08/23/23 20:15 Temperature Pulse Rate 65 64 67 Pulse Rate [Pulse Oximeter] Respiratory Rate Blood Pressure 93/57 L Blood Pressure [Ri ght Upper Arm] Pulse Oximetry 96 97 95 Oxygen Delivery Me thod 08/23/23 20:30 08/23/23 20:32 08/23/23 20:45 Temperature Pulse Rate 66 67 66 Pulse Rate [Pulse Oximeter] Respiratory Rate Blood Pressure 98/59 L Blood Pressure [Ri ght Upper Arm] Pulse Oximetry 95 95 95 Oxygen Delivery Me thod 08/23/23 21:00 08/23/23 21:02 08/23/23 21:03 Temperature Pulse Rate 65 67 63 Pulse Rate [Pulse Oximeter] Respiratory Rate Blood Pressure 98/55 L Blood Pressure [Ri ght Upper Arm] Pulse Oximetry 95 94 95 Oxygen Delivery Me thod Course Vital Signs Vital signs: Initial Vital Signs Temperature 97.9 F 08/23/23 17:54 Temperature Source Temporal Artery Scan 08/23/23 17:54 Pulse Rate 67 08/23/23 17:54 Respiratory Rate 16 08/23/23 17:54 Blood Pressure 115/70 08/23/23 17:54 Blood Pressure Mean 85 08/23/23 17:54 Blood Pressure Position Sitting 08/23/23 17:54 Pulse Oximetry 99 08/23/23 17:54 Oxygen Delivery Method Room Air 08/23/23 17:54 Vital Signs Temperature 97.9 F 08/23/23 17:54 Pulse Rate 67 08/23/23 17:54 Respiratory Rate 16 08/23/23 17:54 Blood Pressure 115/70 08/23/23 17:54 Pulse Oximetry 99 08/23/23 17:54 Oxygen Delivery Method Room Air 08/23/23 17:54 Temperature 97.9 F 08/23/23 17:54 Pulse Rate 63 08/23/23 21:03 Respiratory Rate 16 08/23/23 17:54 Blood Pressure 98/55 L 08/23/23 21:02 Pulse Oximetry 95 08/23/23 21:03 Oxygen Delivery Method Room Air 08/23/23 17:54 Medications Administered Medications: Discontinued Medications Generic Name Dose Route Start Last Admin Trade Name Freq PRN Reason Stop Dose Admin Diphenhydramine HCl 25 mg 08/23/23 18:08 08/23/23 18:41 Diphenhydramine 50 Mg/Ml Inj IVP 08/23/23 18:09 25 mg ONCE ONE Administration Lactated Ringer's 1,000 mls @ 1,000 mls/hr 08/23/23 18:08 08/23/23 20:10 Lactated Ringers 1000 Ml IV 08/23/23 19:07 Infused .Q1H ONE Infusion Ketorolac Tromethamine 15 mg 08/23/23 18:08 08/23/23 18:35 Ketorolac 15 Mg/Ml Inj IVP 08/23/23 18:09 15 mg ONCE ONE Administration Metoclopramide HCl 10 mg 08/23/23 18:08 08/23/23 18:38 Metoclopramide Hcl 5 Mg/Ml Inj IVP 08/23/23 18:09 10 mg ONCE ONE Administration Medical Decision Making MDM Narrative Medical decision making narrative: Patient is a 43-year-old female presenting to emergency department for multiple complaints. She is very concerned at this time this could be related to hyperthyroidism. We will check a TSH with reflex T4. With her shortness of breath and chest pain also ordered D-dimer could she is on Mirena hormonal control. Will also rule chest x-ray the for signs of pneumonia or pneumothorax. Troponin EKG the Hi for signs of ACS. Will order CBC, CMP, magnesium, COVID says flu/RSV. Patient given Toradol, Reglan, diphenhydramine, lactated Ringer's for her headache. Patient is feeling better after the medications. She is not still feeling 100% but does admit to improvement. Chest x-ray reviewed by myself and the radiologist shows no concerning abnormalities. CBC, CMP showed no concerning abnormalities. COVID test was discharged is negative. I believe this chest pain is musculoskeletal in nature acid is tender to palpation and was reproducible. That chest pain is now gone. D-dimer within normal limits in PE is unlikely. EKG shows no concerning abnormalities. Troponin within normal limits. Considering I strongly believe the chest pain was musculoskeletal in nature I do not believe is necessary to repeat the troponin. TSH and free T4 are consistent with previous levels. I cannot say exactly was causing symptoms but do not see any concerning abnormalities at this time. She is safe for discharge and she is agreeable to this plan. Lab Data Labs: Lab Results 08/23/23 08/23/23 Range/Units 18:25 20:40 WBC 9.16 (4.50-11.00) K/uL RBC 4.71 (4.00-5.20) m/uL Hgb 13.2 (12.0-16.0) gm/dL Hct 39.7 (33.0-51.0) % MCV 84 (80-100) fL MCH 28 (26-34) pg MCHC 33 (32-36) gm/dL RDW Coeff of Kenzie 12.9 (11.5-15.5) % Plt Count 320 (140-440) K/uL Neut % (Auto) 58.9 (42.0-72.0) % Lymph % (Auto) 31.6 (20-44) % Lipscomb % (Auto) 5.8 (0.0-11.0) % Eos % (Auto) 3.4 (0.0-7.0) % Baso % (Auto) 0.2 (0.0-3.0) % Neut # (Auto) 5.40 (1.7-7.0) K/uL Lymph # (Auto) 2.89 (0.90-2.90) K/uL Lipscomb # (Auto) 0.50 (0.00-0.90) K/UL Eos # (Auto) 0.31 (0.00-0.50) K/uL Baso # (Auto) 0.02 (0.00-0.30) K/uL Abs Immat Gran (auto) 0.01 (0.00-0.30) K/uL Imm/Tot Granulo (auto) 0.1 % D-Dimer Quant (PE/DVT) 0.30 (0.00-0.50) ug/ml Sodium 137 (135-149) mmol/L Potassium 3.4 L (3.6-5.1) mmol/L Chloride 105 (96-114) mmol/L Carbon Dioxide 25 (20-32) mmol/L Anion Gap 7 (7-15) mEq/L BUN 17 (5-24) mg/dL Creatinine 0.8 (0.5-1.5) mg/dL Estimated GFR 94 ml/min Glucose 92 (60-115) mg/dL Calcium 9.2 (8.4-10.6) mg/dL Magnesium 2.3 (1.5-2.6) mg/dL Total Bilirubin 0.3 (0.1-1.5) mg/dL AST 28 (12-35) U/L ALT 15 (4-35) U/L Alkaline Phosphatase 85 (40-150) U/L Total Protein 7.2 (6.0-8.3) g/dL Albumin 4.3 (3.3-5.0) g/dL TSH < 0.015 L (0.270-4.200) uIU/mL Free T4 1.36 (0.70-1.85) ng/dL HCG, Qual Negative (Negative) SARS-CoV-2 (PCR) Negative SARS-CoV-2 (Negative) Influenza Type A (PCR) Negative PCR FLU A (Negative) Influenza Type B (PCR) Negative PCR FLU B (Negative) RSV (PCR) Negative PCR RSV (Negative) POC Troponin I 0.00 L (0.01-0.04) ng/ml Imaging Data Chest x-ray: Attestation: I have reviewed the pertinent imaging results. Radiologist's impression: No acute cardiopulmonary process. Stable examination. Dictated by Ke Harden MD @ 08/23/2023 7:35:20 PM ECG Data Attestation: I personally reviewed and interpreted this ECG as follows: Prior ECG tracings: available for review Interpretation: Normal sinus rhythm rate 68 beats per minute, normal intervals, normal axis, no ST or T-wave abnormalities Discharge Plan Discharge Clinical Impression: Light-headedness, Atypical chest pain Patient Disposition: Home, Self-Care Condition: Improved Instructions: Chest Wall Pain (ED) Additional Instructions: Take Tylenol and ibuprofen for chest pain. Follow-up with the primary care provider if symptoms persist. Return to emergency department for new or worsening symptoms Prescriptions: No Action clonidine HCl 0.3 mg tablet 0.3 mg PO TID PRN epinephrine 0.3 mg/0.3 mL auto-injector 0.3 mg IM ONCE PRN Rx Instructions: as a single dose; may repeat once melatonin 10 mg tablet 20 mg PO QHS PRN ondansetron 4 mg tablet,disintegrating 4 mg PO Q8H omeprazole 40 mg capsule,delayed release(DR/EC) 40 mg PO DAILY Qty: 90 3RF prazosin 1 mg capsule 1 mg PO QHS Qty: 90 1RF prazosin 2 mg capsule 2 mg PO QPM Qty: 90 1RF topiramate 25 mg tablet 25 mg PO DAILY Qty: 90 1RF hydrochlorothiazide 12.5 mg tablet 12.5 mg PO DAILY Qty: 90 3RF nicotine 21 mg/24 hr Patch 24 Hour 1 patch transdermal Q24H Qty: 30 0RF loperamide [Anti-Diarrheal (loperamide)] 2 mg capsule 2 mg PO Q6H PRN (Reason: loose stool) Qty: 30 0RF lorazepam [Ativan] 1 mg tablet 0.5 mg PO Q12H PRNQty: 10 0RF methimazole 5 mg tablet 10 mg PO DAILY TAB-A-NIKKI trazodone 50 mg tablet PO fluticasone propion-salmeterol [Advair Diskus] 100-50 mcg/dose blister with device 1 ea INHALATION Q12H polyethylene glycol 3350 17 gram/dose powder 17 g PO DAILY albuterol sulfate [Ventolin HFA] 90 mcg/actuation HFA aerosol inhaler inhalation (DME) blood pressure monitor Kit See Rx Instructions .Route Qty: 1 0RF Rx Instructions: As directed atomoxetine 80 mg capsule 80 mg PO QAM Qty: 30 0RF propranolol 20 mg tablet 20 mg PO TID Qty: 120 0RF Rx Instructions: may add one additional dose if HR is >120. Wait at least 1 hour between doses. trazodone 100 mg tablet 200 mg PO QDAY Qty: 180 0RF gabapentin 300 mg capsule 300 mg PO QDAY Qty: 90 0RF multivitamin with folic acid [Tab-A-Nikki] 400 mcg tablet 1 tab PO DAILY Qty: 90 3RF cholecalciferol (vitamin D3) 50 mcg (2,000 unit) capsule 50 mcg PO DAILY Qty: 90 0RF Follow Up/Referrals: Tahmina Gandhi MD [Primary Care Provider] - Stand Alone Forms: [facility] Info Instructions
[2023-08-23 18:34] LABS: Basophils Absolute Auto 0.02 K/uL (0.00-0.30); Basophils Percent Auto 0.2 % (0.0-3.0); Eosinophils Absolute Auto 0.31 K/uL (0.00-0.50); Eosinophils Percent Auto 3.4 % (0.0-7.0); Hematocrit 39.7 % (33.0-51.0); Hemoglobin* 13.2 gm/dL (12.0-16.0); Immature Granulocytes Abs Auto 0.01 K/uL (0.00-0.30); Immature Granulocytes Pct Auto 0.1 %; Lymphocytes Absolute Auto 2.89 K/uL (0.90-2.90); Lymphocytes Percent Auto 31.6 % (20-44); Mean Corpuscular HGB Conc 33 gm/dL (32-36); Mean Corpuscular Hemoglobin 28 pg (26-34); Mean Corpuscular Volume 84 fL (80-100); Monocytes Percent Auto 5.8 % (0.0-11.0); Neutrophils Percent Auto 58.9 % (42.0-72.0); Platelet Count* 320 K/uL (140-440); RDW Coefficient of Variation % 12.9 % (11.5-15.5); Red Blood Count 4.71 m/uL (4.00-5.20); White Blood Count* 9.16 K/uL (4.50-11.00)
[2023-08-23] MEDS: KETOROLAC 15 MG/ML inj IVP (18:35)
[2023-08-23] MEDS: METOCLOPRAMIDE HCL 5 MG/ML INJ 10 MG IVP (18:38)
[2023-08-23 18:40] LABS: Slide Review Reflex No
[2023-08-23] MEDS: diphenhydrAMINE 50 MG/ML inj 25 MG IVP (18:41)
[2023-08-23 18:46] LABS: Albumin* 4.3 g/dL (3.3-5.0)
[2023-08-23 18:47] LABS: Chloride* 105 mmol/L (96-114); Potassium* 3.4 mmol/L (3.6-5.1); Sodium* 137 mmol/L (135-149)
[2023-08-23 18:49] LABS: Anion Gap 7 mEq/L (7-15); Aspartate Amino Transferase* 28 U/L (12-35); Bilirubin Total* 0.3 mg/dL (0.1-1.5); Carbon Dioxide* 25 mmol/L (20-32); Creatinine* 0.8 mg/dL (0.5-1.5); Estimated Glomerular Filt Rate 94 ml/min
[2023-08-23 18:50] LABS: Alanine Aminotransferase* 15 U/L (4-35); Alkaline Phosphatase* 85 U/L (40-150); Blood Urea Nitrogen* 17 mg/dL (5-24); Calcium* 9.2 mg/dL (8.4-10.6); Glucose* 92 mg/dL (60-115); Magnesium* 2.3 mg/dL (1.5-2.6); Total Protein* 7.2 g/dL (6.0-8.3)
[2023-08-23] MEDS: LACTATED RINGERS 1000 ML 1,000 ML IV (18:58)
[2023-08-23 19:01] LABS: HCG Qualitative Serum* Negative (Negative)
[2023-08-23 19:10] LABS: PCR FLU A Negative PCR FLU A (Negative); PCR FLU B Negative PCR FLU B (Negative); PCR RSV Negative PCR RSV (Negative); SARS PCR* Negative SARS-CoV-2 (Negative)
[2023-08-23 19:36] LABS: TSH With Reflex to FT4* < 0.015 uIU/mL (0.270-4.200)
[2023-08-23 20:05] LABS: Free T4 Free Thyroxine* 1.36 ng/dL (0.70-1.85)
== END 2023-08-23 21:21 | disposition home or self-care (01) ==
PROVIDERS: Emergency Provider Student in an Organized Health Care Education/Training Program; PCP Family Medicine
DX: R42 Dizziness and giddiness (principal); R07.89 Other chest pain
CPT/HCPCS: 36415; 71046; 80053; 83735; 84439; 84443; 84484; 84703; 85025; 85379; 87631; 93005; 96361; 96374; 96375; 99283; 99284; 99285; J1200; J1885; J2765; J7120

== ENCOUNTER 2023-11-16 10:31 | Emergency (ER) | payer MEDICAID, SELFPAY ==
[2023-11-16 10:35] VITALS: BP 110/75; PULSE 79; RESP 18; TEMP 36.9; O2SAT 96; BMI 33.3
--- NOTE | 2023-11-16 10:42 | ED_ITS ---
HPI - Extremity Injury (Lower) General Time Seen by Provider: 10:42 Date Seen: 11/16/23 Chief Complaint: Extremity Pain/Injury, Lower Stated Complaint: LT ankle injury Time Seen by Provider: 11/16/23 10:42 Source: patient and RN notes reviewed Mode of arrival: ambulatory Limitations: no limitations History of Present Illness HPI Narrative: This 43-year-old female is coming in with complaint of left ankle pain. She reportedly slipped on a rug injuring her left ankle yesterday. She did go to work last night and ambulate. Today the pain is worse, hurts laterally on the outside of the ankle. She states the pain is intolerable. She would rather not walk on it, it is hurting more to walk on it now. She did try 600 mg ibuprofen this morning. MD complaint: ankle injury Related Data Home Medications ?Medication ?Instructions ?Recorded ?Confirmed albuterol sulfate 90 mcg/actuation inhalation 05/14/23 06/01/23 aerosol inhaler (Ventolin HFA) fluticasone 100 mcg-salmeterol 50 1 ea inhalation Q12H 05/14/23 08/07/23 mcg/dose blistr powdr for inhalation (Advair Diskus) polyethylene glycol 3350 17 17 g PO DAILY 05/14/23 06/13/23 gram/dose oral powder clonidine HCl 0.3 mg tablet 0.3 mg PO TID PRN 06/01/23 08/07/23 epinephrine 0.3 mg/0.3 mL 0.3 mg IM ONCE PRN 06/01/23 08/07/23 injection, auto-injector melatonin 10 mg tablet 20 mg PO QHS PRN 06/01/23 08/07/23 ondansetron 4 mg disintegrating 4 mg PO Q8H 06/01/23 08/07/23 tablet TAB-A-NIKKI 08/07/23 methimazole 5 mg tablet 10 mg PO DAILY 08/07/23 11/16/23 trazodone 50 mg tablet mg PO 08/07/23 levocetirizine 5 mg tablet 5 mg PO QAM 11/16/23 11/16/23 Previous Rx's ?Medication ?Instructions ?Recorded blood pressure monitor #1 ea 06/01/23 hydrochlorothiazide 12.5 mg tablet 12.5 mg PO DAILY #90 tabs 06/01/23 omeprazole 40 mg capsule,delayed 40 mg PO DAILY #90 caps 06/01/23 release prazosin 1 mg capsule 1 mg PO QHS #90 caps 06/01/23 prazosin 2 mg capsule 2 mg PO QPM #90 caps 06/01/23 topiramate 25 mg tablet 25 mg PO DAILY #90 tabs 06/01/23 loperamide 2 mg capsule 2 mg PO Q6H PRN loose stool #30 06/12/23 (Anti-Diarrheal (loperamide)) caps nicotine 21 mg/24 hr daily 1 patch transdermal Q24H #30 ea 06/12/23 transdermal patch atomoxetine 80 mg capsule 80 mg PO QAM #30 caps 08/04/23 cholecalciferol (vitamin D3) 50 50 mcg PO DAILY #90 caps 08/04/23 mcg (2,000 unit) capsule gabapentin 300 mg capsule 300 mg PO QDAY #90 caps 08/04/23 multivitamin with folic acid 400 1 tab PO DAILY #90 tabs 08/04/23 mcg tablet (Tab-A-Nikki) propranolol 20 mg tablet 20 mg PO TID #120 tabs 08/04/23 trazodone 100 mg tablet 200 mg (2 x 100 mg) PO QDAY #180 08/04/23 tabs Allergies Allergy/AdvReac Type Severity Reaction Status Date / Time mold Allergy Severe Anaphylaxis Verified 06/13/23 13:44 almond Allergy Mild Hives Verified 06/13/23 13:44 loratadine [From Claritin] Allergy Mild Hives Verified 06/13/23 13:44 sumatriptan [From Imitrex] Allergy Mild Hives Verified 06/13/23 13:44 morphine AdvReac Mild Palpitation Verified 06/13/23 13:44 s Review of Systems Narrative: As per HPI. 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 - Other stimulant abuse, in remission (ICD-10) Irregular menses ?N92.6 - Irregular menstruation, unspecified (ICD-10) Uterine fibroid ?D25.9 - Leiomyoma of uterus, unspecified (ICD-10) Thyroid nodule ?E04.1 - Nontoxic single thyroid nodule (ICD-10) Intermittent asthma ?J45.20 - Mild intermittent asthma, uncomplicated (ICD-10) GERD (gastroesophageal reflux disease) ?K21.9 - Gastro-esophageal reflux disease without esophagitis (ICD-10) Chronic constipation ?K59.09 - Other constipation (ICD-10) History of abnormal cervical Pap smear ?Z87.42 - Personal history of other diseases of the female genital tract (ICD-10) Anxiety ?F41.9 - Anxiety disorder, unspecified (ICD-10) Surgical History History of ovarian cystectomy (2001) ?Z98.890 - Other specified postprocedural states (ICD-10) ?Z87.42 - Personal history of other diseases of the female genital tract (ICD-10) History of cryosurgery (2000) ?Z98.890 - Other specified postprocedural states (ICD-10) History of appendectomy (2007) ?Z90.49 - Acquired absence of other specified parts of digestive tract (ICD- 10) History of laparoscopic cholecystectomy (2014) ?Z90.49 - Acquired absence of other specified parts of digestive tract (ICD- 10) History of esophagogastroduodenoscopy (EGD) (2020) ?Z98.890 - Other specified postprocedural states (ICD-10) History of open reduction and internal fixation (ORIF) procedure (2021) ?Z98.890 - Other specified postprocedural states (ICD-10) History of colonoscopy (2013) ?Z98.890 - Other specified postprocedural states (ICD-10) Family History Mother Heart failure Asthma Depression Father Heart failure Paternal Grandfather Liver disease Family/Other Breast cancer Social History Narrative: Single, living in sober recovery house in [place], not working, no children Smokes half a pack a day, 20 pack years No alcohol or methamphetamine since January 2023 Exercise twice a week walking What is your current living situation?: I presently have a place to live Problems where you live: no known problems Problems where you live details: Lives in sober living facility. No known problems In the past 12 months, utilities in danger of being shut off: no In past 12 months, lack of transportation kept you from medical appts, meetings, work, or getting things needed for daily living: no In the past 12 mos, have been you worried that your food would run out before you had money to buy more?: never true In the past 12 mos, the food you bought just didn't last and you didn't have money to buy more?: never true Highest level of school completed/degree received: high school graduate Smoking Status: Current every day smoker What tobacco products do you use: cigarettes Do you use any of these nicotine containing products: None Second hand tobacco smoke exposure: No How often do you have a drink containing alcohol: never How often do you have six or more drinks on one occasion: Never AUDIT-C Alcohol total score: 0 Non-prescribed substance use: former substance user and amphetamines/methamphetamines Caffeine: Yes How often does anyone, including family, friends and others, physically hurt you : never How often does anyone, including family, friends and others, insult or talk down to you: never How often does anyone, including family, friends and others, threaten you with harm: never How often does anyone, including family, friends and others, scream or curse at you: never Little interest or pleasure in doing things: not at all Feeling down, depressed, or hopeless: not at all service: No Exam Const: Vital Signs, click to edit/add: Vital Signs - 24 hr 11/16/23 10:35 Temperature 98.5 F Pulse Rate [Right Pulse Oximeter] 79 Respiratory Rate 18 Blood Pressure [Ri ght Upper Arm] 110/75 Pulse Oximetry 96 Oxygen Delivery Me thod Room Air 43-year-old female seen in exam room 1, lying in the bed. She seems tired, slightly sedated but speech is normal, certainly not falling asleep while talki ng to me. Inspection of both of her lower extremities reveals a little inferior swelling and tenderness in the anterior talofibular ligament area. She certainly tender there. Some tenderness over the distal lateral malleolus. The ankle mortise palpates intact, no joint effusion. Neurovascular is intact distally. Range of motion of her ankle is painful. Achilles tendon palpates normal, no swelling over it. Squeezing of her calf does cause some plantar flexion. Documenting provider has reviewed patient's vital signs: yes Course Course ED Course: Will obtain x-ray imaging of her ankle to rule out fracture. If there is no fracture, this likely represents a sprain and will guide her on treatment of that. Reevaluation(s) Time of Reevaluation #1: 12:26 Reevaluation #1: Reviewed with patient the x-ray report. She does have pain in the lateral posterior heel area, may have a sense of some soft tissue swelling as a look at this area closer. Discussed with her doing CT imaging of the foot to rule out occult fracture. She would like to proceed. Time of Reevaluation #2: 13:32 Reevaluation #2: Reviewed negative CT for any fracture or noted injury. Did place BRENDAN wrap for comfort. Requested note to be off work through the weekend which was provided. If ongoing issues, needs to follow up in clinic and maybe will need to see orthopedics if further concerns. Vital Signs Vital signs: Initial Vital Signs Temperature 98.5 F 11/16/23 10:35 Temperature Source Temporal Artery Scan 11/16/23 10:35 Pulse Rate 79 11/16/23 10:35 Pulse Rhythm Regular 11/16/23 10:35 Respiratory Rate 18 11/16/23 10:35 Blood Pressure 110/75 11/16/23 10:35 Blood Pressure Mean 86 11/16/23 10:35 Blood Pressure Position Sitting 11/16/23 10:35 Pulse Oximetry 96 11/16/23 10:35 Oxygen Delivery Method Room Air 11/16/23 10:35 Vital Signs Temperature 98.5 F 11/16/23 10:35 Pulse Rate 79 11/16/23 10:35 Respiratory Rate 18 11/16/23 10:35 Blood Pressure 110/75 11/16/23 10:35 Pulse Oximetry 96 11/16/23 10:35 Oxygen Delivery Method Room Air 11/16/23 10:35 Temperature 98.5 F 11/16/23 10:35 Pulse Rate 79 11/16/23 10:35 Respiratory Rate 18 11/16/23 10:35 Blood Pressure 110/75 11/16/23 10:35 Pulse Oximetry 96 11/16/23 10:35 Oxygen Delivery Method Room Air 11/16/23 10:35 MDM - Extremity Injury (Lower) Imaging Data XR left ankle: Attestation: I have reviewed the pertinent imaging results. My impression: I see no acute pathology on my preliminary review. Radiologist's impression: Patient: ANA MAN Facility:?[facility] Patient ID:?[id number] Site Patient ID:?[id number]. Site :?[id number] Study:?XRay-Extremity Left 3 VIEWS-11/16/2023 11:04:49 AM Ordering Physician:Althea Juárez Final Report: INDICATION: Posttraumatic pain. COMPARISON: None available. TECHNIQUE: Views: Three views left hand FINDINGS: Mineralization: Normal. Alignment: Normal. Bones and Joints: No fracture is identified. Posterior calcaneal spurs are noted incidentally. Soft Tissues: Unremarkable. IMPRESSION: No acute traumatic injury is identified. Dictated by Kamari Salcedo MD @ 11/16/2023 12:11:41 PM ----- ADDENDUM ----- ADDENDUM: Possible lateral hindfoot soft tissue swelling. Correlation with clinical exam findings is recommended. Dictated by Kamari Salcedo MD @ Nov 16 2023 12:12PM (Electronic Signature) CT- Other: Attestation: I have reviewed the pertinent imaging results. Radiologist's impression: Patient: ANA MAN Facility:?[facility] Patient ID:?[id number] Site Patient ID:?[id number]. Site :?1980 Study:?CT-Extremity Left FOOT W/O-11/16/2023 1:07:30 PM Ordering Physician:Althea Juárez Final Report: INDICATION: Left foot pain and swelling. Injury. TECHNIQUE: Noncontrast CT of the left foot. COMPARISON: Radiographs from 11/16/2023. FINDINGS: No acute distal tibial or fibular fracture. No ankle joint effusion. The talus is intact. No acute calcaneal fracture. There is spurring of the plantar and posterior aspects of the calcaneus. Subtalar joint spaces are maintained. Osseous structures of the midfoot are intact. Metatarsal bones are intact. There is subchondral cystic change within the proximal phalanx of the great toe which likely relates to proximal surface chondromalacia. The other phalanges are intact. No localized fluid collection, space-occupying hematoma or soft tissue gas. IMPRESSION: 1. No acute fracture. 2. No malalignment. 3. No fluid collection or space-occupying hematoma. Dictated by Luis A Castañeda MD @ 11/16/2023 1:17:11 PM Please note that all CT scans at this facility use dose modulation, iterative reconstruction, and/or weight-based dosing when appropriate to reduce radiation dose to as low as reasonably achievable. Dictated by: Luis A Castañeda MD @ 11/16/2023 13:17:16 (Electronic Signature) Discharge Plan Discharge Clinical Impression: Sprain of ankle, left Qualifiers: Encounter type: initial encounter Involved ligament of ankle: unspecified ligament Qualified Code(s): S93.402A - Sprain of unspecified ligament of left ankle, initial encounter Patient Disposition: Home, Self-Care Condition: Stable Instructions: Ankle Sprain (ED) Additional Instructions: Use Brendan wrap as needed for comfort. Tylenol/ibuprofen as needed for pain, follow bottle directions for dosing. Ice and elevate as much as able to in order to help decrease any pain and swelling. If not improving through the weekend, schedule clinic follow up for further evaluation. Activity Level: Activity as Tolerated Prescriptions: No Action clonidine HCl 0.3 mg tablet 0.3 mg PO TID PRN epinephrine 0.3 mg/0.3 mL auto-injector 0.3 mg IM ONCE PRN Rx Instructions: as a single dose; may repeat once melatonin 10 mg tablet 20 mg PO QHS PRN ondansetron 4 mg tablet,disintegrating 4 mg PO Q8H omeprazole 40 mg capsule,delayed release(DR/EC) 40 mg PO DAILY Qty: 90 3RF prazosin 1 mg capsule 1 mg PO QHS Qty: 90 1RF prazosin 2 mg capsule 2 mg PO QPM Qty: 90 1RF topiramate 25 mg tablet 25 mg PO DAILY Qty: 90 1RF hydrochlorothiazide 12.5 mg tablet 12.5 mg PO DAILY Qty: 90 3RF nicotine 21 mg/24 hr Patch 24 Hour 1 patch transdermal Q24H Qty: 30 0RF loperamide [Anti-Diarrheal (loperamide)] 2 mg capsule 2 mg PO Q6H PRN (Reason: loose stool) Qty: 30 0RF methimazole 5 mg tablet 10 mg PO DAILY TAB-A-NIKKI trazodone 50 mg tablet PO levocetirizine 5 mg tablet 5 mg PO QAM fluticasone propion-salmeterol [Advair Diskus] 100-50 mcg/dose blister with device 1 ea INHALATION Q12H polyethylene glycol 3350 17 gram/dose powder 17 g PO DAILY albuterol sulfate [Ventolin HFA] 90 mcg/actuation HFA aerosol inhaler inhalation (DME) blood pressure monitor Kit See Rx Instructions .Route Qty: 1 0RF Rx Instructions: As directed atomoxetine 80 mg capsule 80 mg PO QAM Qty: 30 0RF propranolol 20 mg tablet 20 mg PO TID Qty: 120 0RF Rx Instructions: may add one additional dose if HR is >120. Wait at least 1 hour between doses. trazodone 100 mg tablet 200 mg PO QDAY Qty: 180 0RF gabapentin 300 mg capsule 300 mg PO QDAY Qty: 90 0RF multivitamin with folic acid [Tab-A-Nikki] 400 mcg tablet 1 tab PO DAILY Qty: 90 3RF cholecalciferol (vitamin D3) 50 mcg (2,000 unit) capsule 50 mcg PO DAILY Qty: 90 0RF Follow Up/Referrals: Tahmina Gandhi MD [Primary Care Provider] - Stand Alone Forms: [employer] Info Instructions
--- NOTE | 2023-11-16 10:47 | CRLHL7_ITS ---
For Patients: As a result of the Cures Act, medical imaging exams and procedure reports are released immediately into your electronic medical record. You may view this report before your referring provider. If you have questions, please contact your health care provider. INDICATION: Posttraumatic pain. COMPARISON: None available. TECHNIQUE: Views: Three views left hand FINDINGS: Mineralization: Normal. Alignment: Normal. Bones and Joints: No fracture is identified. Posterior calcaneal spurs are noted incidentally. Soft Tissues: Unremarkable. IMPRESSION: No acute traumatic injury is identified. Dictated by Kamari Salcedo MD @ 11/16/2023 12:11:41 PM (Electronically Signed)
--- OUTSIDE RECORDS SUMMARY | 2023-11-16 11:01 | XMS_ITS | Clinical Summary ---
Author Organization [facility] Address [address] [place] [address] Care Team Providers Care Family And Consumer Science Professor Name Role Phone Unavailable Primary Care Provider Unavailabl e Source Comments Patient records contain information from all sites at [facility]. For routine questions regarding patient records, call [phone] during business hours, M-F 8:00 AM - 5:00 PM Central Time. Record requests for emergency care only can be directed to [phone] at any time.[facility] Allergies Active Allergy Reactions Criticality Noted Date Comments Galt Other (see comments) Low 06/13/2023 Cyclobenzaprine Other (see comments) 06/28/2018 Hydromorphone Hives (Reselect Reaction),Rash Low 07/17/2009 Occurred after IV dose 04/22/09 Loratadine Hives (Reselect Reaction),Rash Low 10/07/2006 Unsure whether it was the Claritin or psuedoephedrine Mold Anaphylaxis High 04/12/2016 Nut - Unspecified Hives (Reselect Reaction) 06/26/2013 Oxycodone-Acetaminophe n Itching 01/04/2008 Sumatriptan Hives only, no other systemic symptoms,Rash Low 07/19/2007 Other Reaction(s): Other - Describe In Comment Field I feel like I'm going to crawl out of my skin Medications Medication Sig Dispensed Refills Start Date End Date Status acetaminophen (TYLENOL) 500 mg tablet Take 500-1,000 mg by mouth every 6 (six) hours as needed for pain. Active albuterol 90 mcg/actuation inhaler Inhale 2 puffs. 10/18/2022 Active albuterol 90 mcg/actuation inhaler Inhale. 05/14/2023 Active amoxicillin (AMOXIL) 500 mg capsule Take 500 mg by mouth. 04/07/2023 Act rj atomoxetine (STRATTERA) 40 mg capsule Take 40 mg by mouth daily. 03/29/2023 Active cholecalciferol (VITAMIN D3) 50 mcg (2,000 Unit) tablet Take 50 mcg by mouth daily. 03/18/2023 Active EPINEPHrine 0.3 mg/0.3 mL injection syringe Inject 0.3 mg intramuscularly as needed. 10/18/2022 Active fluticasone propion-salmetero L 100-50 mcg/actuation diskus inhaler Inhale 1 each. 05/14/2023 Active fluticasone propion-salmetero L 100-50 mcg/actuation diskus inhaler Inhale 1 puff every 12 (twelve) hours. 03/23/2023 Active gabapentin (NEURONTIN) 300 mg capsule Take 300 mg by mouth daily. 09/23/2022 Active hydroCHLOROthiazi de (HYDRODIURIL) 12.5 mg tablet Take 12.5 mg by mouth. 03/23/2023 Active hydrocortisone (CORTIZONE) 1 % ointment Apply sparingly to affected area three times daily for 14 days. 02/22/2023 Active lidocaine (SALONPAS) 4 % adhesive patch,medicated Place 1 patch on the skin daily. Active omeprazole (PriLOSEC) [address] capsule Take 40 mg by mouth. 04/07/2023 Acti ve prazosin (MINIPRESS) 1 mg capsule Take 1 mg by mouth daily. 02/18/2023 Active prazosin (MINIPRESS) 2 mg capsule Take 2 mg by mouth at bedtime. Active propranoloL (INDERAL) 20 mg tablet TAKE ONE TABLET (20 MG) BY MOUTH TWICE A DAY. 06/08/2023 Active sennosides-docusa te sodium (Senexon-S) 8.6-50 mg per tablet Take 1 tablet by mouth as needed for constipation. 03/21/2023 Active topiramate (TOPAMAX) 25 mg tablet TAKE ONE TABLET (25 MG) BY MOUTH DAILY. 06/08/2023 Active traZODone (DESYREL) 50 mg tablet Take 100 mg by mouth at bedtime. Active methIMAzole (TAPAZOLE) 5 mg tabletIndications :Hyperthyroidism Take 3 tablets (15 mg total) by mouth daily. 90 tablet 3 08/15/2023 Active loperamide (IMODIUM A-D) 2 mg capsule Take 2 mg by mouth as needed. 06/13/2023 Active Active Problems Problem Noted Date Diagnosed Date Hyperthyroidism 06/23/2023 Overview: Hyperthyroidism consistent with Graves' disease, not on therapy yet except propranolol PMHx: sober x many months, living in transitional housing with own room, doing well FHx: no clear Graves' disease Last Assessment & Plan: Video visit completed with Natalie; she is on methimazole now 15 mg daily (raised from 10 mg daily 1 week ago) She continues propranolol 10 mg TID, continues on this ; she has had high HR She says whenever she has a bath, she feels ill, has to go to the ER and feels like she is in storm Her thyroid labs are normal/near normal except TSH suppressed but normal FT4, Total T3 She still has episodes which she says are scary to her; she is working as well. She would like to move to definite treatment of Graves' disease with surgery, understanding risks of surgery and pros/cons of other options (methimazole vs GONZALEZ vs surgery) Plan Endocrine surgery consult 1 month post op, or 1 month from now if she delays surgery, TSH, FT4 and T3 check (Rx printed to send to patient) Rx levothyroxine 125 mcg daily post op, if she proceeds with thyroidectomy Continue methimazole 15 mg through to surgery, stop post op and switch to above Encounters Date Type Department Care Team Description 08/29/2023 11:00 AM CDT Telemedicine Division of Endocrinology in [address] [phone] Minerva Mast M.D. Hyperthyroidism 08/25/2023 12:00 PM CDT Clinical Communication Virtual Review in [address] [phone] Pre-visit Intake 08/16/2023 Clinical Communication Division of Endocrinology in [address] [phone] Minerva Mast M.D. [facility] Lab Results from Last 3 Months Social History Tobacco Use Types Packs/Day Years Used Date Smoking Tobacco: Former Cigarettes Passive Smoke Exposure: Current Smokeless Tobacco: Never Tobacco Cessation:Counseling Given: Not Answered [facility] Utilities Answer Date Recorded In the past 12 months has th e electric, gas, oil, or water company threatened to shut off services in your home? No 08/24/2023 Exercise Vital Sign Answer Date Recorde d On average, how many days pe r week do you engage in moderate to strenuous exercise (like a brisk walk)? 5 days 08/24/2023 On average, how many minutes do you engage in exercise at this level? 150+ min 08/24/2023 Hunger Vital Sign Answer Date Recorded Within the past 12 months, y ou worried that your food would run out before you got the money to buy more. Sometimes true Within the past 12 months, t he food you bought just didn't last and you didn't have money to get more. Never true PRAPARE - Transportation Answer Date Re corded In the past 12 months, has l ack of transportation kept you from medical appointments or from getting medications? No 07/29 In the past 12 months, has l ack of transportation kept you from meetings, work, or from getting things needed for daily living? Yes 08/24/2023 Nutrition Answer Date Recorded Nutrition: EVOO Fat Source Unknown 08/23 On average, how many serving s of fruits and vegetables do you eat per day (serving size is equal to 1 cup or approximately the size of a tennis ball)? 0-2 08/24/2023 Dental Answer Date Recorded Dental: Regular Dentist No 08/24/19 24 Employment Answer Date Recorded Employment status Employed and actively working without restrictions 08/24/2023 Housing Stability Answer Date Recorded What is your living situation today? I have a [facility] place to live 08/24/2023 Sex and Gender Information Value Date Recorded Sex Assigned at Female 08/24/2023 7:50 PM CDT Gender Identity Female 08/24/2023 7:50 PM CDT Sexual Orientation Straight 08/24/2023 7: 50 PM CDT Last Filed Vital Signs Vital Sign Reading Time Taken Comments Blood Pressure 116/77 06/23/2023 8:33 AM SHALE MINER BLASTING Pulse 76 06/23/2023 8:33 AM SHALE MINER BLASTING Temperature - - Respiratory Rate - - Oxygen Saturation - - Inhaled Oxygen Concentration - - Weight 85.5 kg (188 lb 7.9 oz) 06/23/2023 8:33 A M SHALE MINER BLASTING Height 166.8 cm (5' 5.67) 06/23/2023 8:33 AM CS T Body Mass Index 30.73 06/23/2023 8:33 AM SHALE MINER BLASTING Plan of Treatment Health Maintenance Due Date Last Done Comments Cervical Cancer Screening 1981 HIV Screening 1981 Hepatitis C Screening 1981 Mammogram 1981 Hepatitis B Vaccines (1 of 3 - 19+ 3-dose series) 2000 COVID-19 Vaccine ( - 2022- season) 2023 Depression Screening (Annual PHQ-2) 05/30/2023 DTaP,Tdap,and Td Vaccines (3 - Td or Tdap) 10/05/2023 10/04/2013, 06/22/2011 Lipid (Cholesterol) Screening 03/01/2028 03/01/2023 Influenza Vaccine Completed 04/27/2023, , 03/11/2014, Additional history exists HPV Vaccines Aged Out No longer eligi ble based on patient's age to complete this topic Pneumococcal vaccine (0-64 years) Aged Out No longer eligible based on patient's age to complete this topic Medical Devices Implanted Type Area Natural Remedy Consultant Device Identifier Shelf Expiration Date Model / Serial / Lot Gi Other GI Other Stomach Description:06/23/23. PS (Phe t). Patient could not recall approx. date of implantation. Hardware E.G. Pins/Screws/Graham s Hardware e.g. pins/screws/graham s Right: Ankle Description:06/23/23 PS (Phet ). Patient said these screws were implanted approx. 3 years ago, so approx. 2020. Intrauterine Device Intrauterine Device Uterus Procedures Procedure Name Priority Date/Time Associated Diagnosis Comments EXTI LIPID PANEL REFLEX TO DIRECT LDL Routine 03/01/2023 1:33 PM CDT from Last 3 Months or Most Recently Relevant to Health Maintenance
--- OUTSIDE RECORDS SUMMARY | 2023-11-16 11:01 | XMS_ITS | Encounter Summary ---
Author Organization [facility] Address [address] [place] [address] Care Team Providers Care Circuit Manager Name Role Phone Unavailable Primary Care Provider Unavailabl e Reason for Referral * Outpatient (Routine) - Closed Specialty Diagnoses / Procedures Referred By Sasha t Referred To Contact Endocrinology Diagnoses Hyperthyroidism Talha De Luna M.D. [address] [place] [phone] Talha De Luna M.D. [address] [place] [phone] Referral ID Status Reason Start Date Expiration Date Visits Re quested Visits Authorized [id number] Closed 08/10/2023 02/08/2025 1 1 Reason for Visit * Reason Onset Date Comments Thyroid Storm 08/08/2023 Encounter Details Date Type Department Care Team (Latest Contact Info) Description 08/08/2023 Clinical Communication Division of Endocrinology in [place], [place] [address] [place] [phone] Talha De Luna M.D. [address] [place] [phone] Thyroid Storm Social History Tobacco Use Types Packs/Day Years Used Date Smoking Tobacco: Every Day Cigarettes Passive Smoke Exposure: Current Smokeless Tobacco: Never Nutrition Answer Date Recorded Nutrition: EVOO Fat Source Unknown 06/15 Nutrition: Servings of Fruits/Vegetables per Day Not on file 06/15/2023 Dental Answer Date Recorded Dental: Regular Dentist Unknown 06/15/19 24 Sex and Gender Information Value Date Recorded Sex Assigned at Female 08/24/2023 7:50 PM CDT Gender Identity Female 08/24/2023 7:50 PM CDT Sexual Orientation Straight 08/24/2023 7: 50 PM CDT documented as of this encounter Miscellaneous Notes * Addendum Note - Zach Zaman R.N. - 08/15/2023 2:50 PM CDTAddended by: ZACH ZAMAN on: 08/15/2023 02:50 PM Modules accepted: Orders * Addendum Note - Talha De Luna M.D. - 08/15/2023 11:36 AM CDTAddended by: TALHA DE LUNA on: 08/15/2023 11:36 AM Modules accepted: Orders * Addendum Note - Zach Zaman R.N. - 08/15/2023 9:37 AM CDTAddended by: ZACH ZAMAN on: 08/15/2023 09:37 AM Modules accepted: Orders * Telephone Encounter - Emma Gamez R.N. - 08/10/2023 10:32 AM CDT SUBJECTIVE CHIEF COMPLAINT / REASON FOR CALL Thyroid Storm Information Discussed Returned call to Ms. Mcnulty. She is quite upset. She reports that she is frustrated she has still not received a call back from a doctor. Explained to her that I'm a nurse calling back with a message from Dr. De Luna. She is upset stating that she recently was in the ER two days ago and has not felt well. She is currently at work, first day on her job. She reports she has not felt well and is worried this is all thyroid related. She expresses frustration that she never received a mail order lab kit and that she can't wait forever to get this addressed, reiterating the ER physician informed her to contact her Injection Molding Operator right away. Initially Ms. Mcnulty would not allow me to speak, she kept adding additional thoughts when I tried to talk. I informed her that I would not be able to help address her concerns unless she gave me a turnto speak. I told her I empathized with her and knew she has had a stressful last few days. I informed her that Dr. De Luna would like her to get a full set of thyroid labs checked and based on that shewould be able to advise her further if changes need to made to her medications or treatment plan. Ms. Mcnulty has multiple questions for a doctor that would be best discussed during a visit. I informed her the Dr. De Luna has opened up her calendar for August 28- and I will have a decorating instructor reach out and get her scheduled. She would like outside lab orders be sent to [facility] so she can gets her labs drawn tonight after work or tomorrow. DOS is working on scheduling the appointment. PLAN Disposition/Recommendation: self-care is appropriate at this time, patient encouraged to call back with questions Information/Education: patient/caller able to teach back Caller agreeable to plan of care: yes The following references were used: nursing clinical judgement and provider Dr. Talha De Luna * Telephone Encounter - Zach Zaman R.N. - 08/09/2023 8:13 AM CDT SUBJECTIVE CHIEF COMPLAINT / REASON FOR CALL Thyroid Storm Information Discussed Patient was last seen by Dr. De Luna June 23 for Hyperthyroidism. Patient states she was tired yesterday, soreness to chest from having an episode On Tuesday patient states: she was unable to get out of the tub, had to have help, weakness lightheadedness, Symptoms prior to ER visit on Tuesday BP was high Pulse was rising from 116 Took her propanolol and states that did not help Loose stools 3 days prior. Chest pain lasting over an hour that was coming and going and was sharp. Called 911 and was sent by ambulance to local ER Nurse in ER stated TSH was low Patient states she knew her symptoms had to do with her thyroid as she had these symptoms in the past during a thyroid storm. Patient states she is currently taking very concerned about going into cardiac arrest and another thyroid storm Patient currently is taking 10 mg in the morning of methimazole Propanolol 20 mg 3 times a day Patient is possible thinking about moving to GONZALEZ or surgery verses staying on the methimazole. Patient is going to have records from ER visit faxed over. PLAN Disposition/Recommendation: notified provider and awaiting recommendations Information/Education: patient/caller able to teach back Caller agreeable to plan of care: yes The following references were used: nursing clinical judgement documented in this encounter Plan of Treatment Scheduled Orders Name Type Priority Associated Diagnoses Orde r Schedule S-TSH (Thyroid-Stimulating Hormone - Sensitive) Lab Routine Hyperthyroidism Expected: 11/15/2023, Expires: 11/14/2024 T4 (Thyroxine), Free Lab Routine Hyperthyroidism Expected: 11/15/2023, Expires: 11/14/2024 T3 (Triiodothyronine), Total Lab Routine Hyperthyroidism Expected: 11/15/2023, Expires: 11/14/2024 Scheduled Referrals Name Type Priority Associated Diagnoses Order Schedule Endocrinology office visit (clinic) Outpatient Referral Routine Hyperthyroidism Expected: 08/10/2023 (Approximate), Expires: 11/09/2024 documented as of this encounter Visit Diagnoses Diagnosis Hyperthyroidism- Primary documented in this encounter
--- OUTSIDE RECORDS SUMMARY | 2023-11-16 11:01 | XMS_ITS | Encounter Summary ---
Author Organization [facility] Address [address] [facility] [place] [address] Care Team Providers Care Property Adjuster Name Role Phone BetteShirlene MD Unavailable Pat Cole APRN SQUEEGEE OPERATOR Unavailable [phone] Letha Manzanares MD Unavailable [phone] Corby Centeno MD Unavailable [phone] Cynthia Dubon MD Unavailable [phone] Letha Manzanares MD Unavailable [phone] Wilma Saba MD Unavailable [phone] Jeannette Jean Baptiste NP Unavailable [phone] Cynthia Dubon MD Unavailable [phone] System, Provider Not In Primary Care Provider Un available Reason for Visit * Reason Onset Date Comments Previsit 10/18/2023 Encounter Details Date Type Department Care Team (Late st Contact Info) Description 10/18/2023 PRE VISIT [facility] [address] [phone] Corby Centeno MD [address] [place] [address] Previsit Social History Tobacco Use Types Packs/Day Years Used Date Smoking Tobacco: Every Day Cigarettes 0.5 10 Smokeless Tobacco: Former Alcohol Use Standard Drinks/Week Comments Not Currently 0 (1 standard drink = 0.6 oz pur e alcohol) in treatment PHQ-2 Answer Date Recorded PHQ-2 Score 1 04/18/2023 Adolescent Education Answer Date Record ed Getting School Help Needed Not on file 02/18 Food Insecurity Answer Date Recorded Within the past 12 months, d id you worry that your food would run out before you got money to buy more? No 02/22/2023 Within the past 12 months, d id the food you bought just not last and you didn? t have money to get more? No 02/22/2023 Housing Stability Answer Date Recorded Do you have housing? (Juarez ann is defined as stable permanent housing and does not include staying ouside in a car, in a tent, in an abandoned building, in an overnight prison, or couch-surfing.) Yes 02/22/2023 Are you worried about losing your housing? No 02/22/2023 Financial Resource Strain Answer Date R ecorded Within the past 12 months, h ave you or your family members you live with been unable to get utilities (heat, electricity) when it was really needed? No 02/22/2023 Transportation Needs Answer Date Record ed Within the past 12 months, h as lack of transportation kept you from medical appointments, getting your medicines, non-medical meetings or appointments, work, or from getting things that you need? Yes 02/22/2023 Sex and Gender Information Value Date Recorded Sex Assigned at Female 09/29/2020 3:49 PM CDT Gender Identity Female 09/29/2020 3:49 PM CDT Sexual Orientation Straight 09/29/2020 3: 49 PM CDT documented as of this encounter Miscellaneous Notes * Telephone Encounter - Luz Quintero - 09/30/2023 11:04 PM CDT FUTURE VISIT INFORMATION FUTURE VISIT INFORMATION: Date: 10.18.23 Time: 8:00 Location: [facility] REFERRAL INFORMATION: Referring provider: Self Referring providers clinic: Reason for visit/diagnosis allergy consult, per caregiver, recs in epic, self referred RECORDS REQUESTED FROM: Clinic name Comments Records Status Imaging Status [facility] 01.13.23 [facility] 01.08.23 [facility] documented in this encounter Plan of Treatment Upcoming Encounters Date Type Department Care Team (Late st Contact Info) Description 12/20/2023 10:45 AM CDT Office Visit [facility] [address] [phone] Corby Centeno MD [address] [place] [phone] documented as of this encounter Visit Diagnoses Not on filedocumented in this encounter Additional Health Concerns Assessment Noted Time PHQ-9 Depression Total Score: 1 04/07/20 23 7:51 AM MOSS BLEACHER documented as of this encounter Care Teams Property Adjuster Relationship Specialty Start Date End Date System, Provider Not In PCP - General Clinic 07/15/23 Shirlene Amos MD [address] [place] [address] [place] [address] Dermatology 12/29/15 Pat Cole APRN SQUEEGEE OPERATOR [address] [place] [address] [phone] Nurse Practitioner 01/19/22 Letha Manzanares MD [address] [place] [address] [phone] Ophthalmology 03/25/23 Corby Centeno MD [address] [place] [address] Dermatology 03/29/23 Cynthia Dubon MD [address] [place] [address] Cardiovascular Disease 04/19/23 Letha Manzanares MD [address] [place] [address] Assigned Surgical Provider 04/23/23 Wilma Saba MD [address] [address] Assigned OBGYN Provider 04/09/23 Jeannette Jean Baptiste NP [address] [place] [address] Assigned PCP 06/23/23 Cynthia Dubon MD [address] [place] [address] Assigned Heart and Vascular Provider 07/01/23 documented as of this encounter
--- OUTSIDE RECORDS SUMMARY | 2023-11-16 11:01 | XMS_ITS | Encounter Summary ---
Author Organization [facility] Address [address] [place] [address] Care Team Providers Care Service Order Taker Name Role Phone Unavailable Primary Care Provider Unavailabl e Reason for Visit * Reason Onset Date Comments Pre-visit Intake 08/25/2023 Encounter Details Date Type Department Care Team (Latest Contact Info) Description 08/25/2023 12:00 PM CDT Clinical Communication Virtual Review in [place], [place] [address] [place] [address] Pre-visit Intake Social History Tobacco Use Types Packs/Day Years Used Date Smoking Tobacco: Former Cigarettes Passive Smoke Exposure: Current Smokeless Tobacco: Never Tobacco Cessation:Counseling Given: Not Answered [facility] Utilities Answer Date Recorded In the past 12 months has e ilab, gas, oil, or water [id number] threatened to shut off services in your [...] medical appointments or from getting medications? No 03/2 11/2023 In the past 12 months, has l [...] Date Recorded Dental: Regular Dentist No 08/24/19 Employment Answer Date Recorded Employment status Employed and actively working without restrictions 08/24/2023 Housing Stability Answer Date Recorded What is your living situation today? I have a [facility] place to live 08/24/2023 Sex and Gender Information Value Date Recorded Sex Assigned at Female 08/24/2023 7:50 PM CDT Gender Identity Female 08/24/2023 7:50 PM CDT Sexual Orientation Straight 08/24/2023 7: 50 PM CDT documented as of this encounter Plan of Treatment Not on file documented as of this encounter Visit Diagnoses Not on filedocumented in this encounter
--- OUTSIDE RECORDS SUMMARY | 2023-11-16 11:01 | XMS_ITS | Referral Summary ---
Author Organization [facility] Address [address] [facility] [place] [address] Care Team Providers Care Doping Supervisor Name Role Phone BetteShirlene MD Unavailable Pat Cole APRN SPINNER TENDER Unavailable [phone] Letha Manzanares MD Unavailable [phone] Corby Centeno MD Unavailable [phone] Cynthia Dubon MD Unavailable Letha Manzanares MD Unavailable [phone] Wilma Saba MD Unavailable [phone] Jeannette Jean Baptiste NP Unavailable [phone] Cynthia Dubon MD Unavailable [phone] System, Provider Not In Primary Care Provider Un available Encounters Date Type Department Care Team Description 11/09/2023 MyC Medical Advice [facility] [address] [phone] Rosalind Jacobo RN 10/18/2023 Travel 10/18/2023 PRE VISIT [facility] [address] [phone] Corby Centeno MD Previsit 10/18/2023 8:00 AM CDT Office Visit [facility] [address] [phone] Corby Centeno MD Mild intermittent asthma with acute exacerbation (Primary Dx); Non-seasonal allergic rhinitis due to pollen; Postnasal drip; Angioedema, subsequent encounter; Nut allergy; Atopy 10/14/2023 Telephone [facility] [address] [place] [phone] Corby Centeno MD Appointment (Allergy new pt appt) 10/14/2023 MyC Medical Advice [facility] [address] [phone] [facility] Mon[facility] Allergies Active Allergy Reactions Criticality Noted Date Comments Nuts Hives 06/26/2013 Desloratadine-Pseudoephed Er Unknown 11/23/2007 Cyclobenzaprine 06/28/2018 Hydromorphone Hives,Rash Low 07/17/2009 Occurred after IV dose 04/22/09 Loratadine Hives,Rash Low 10/07/2006 Unsure whether it was the Claritin or psuedoephedrine Mold Anaphylaxis High 04/12/2016 Morphine Palpitations Low 06/26/2013 Oxycodone-Acetaminophen Itching 01/04/2008 Sumatriptan Rash Low 07/19/2007 Other Reaction(s): Other - Describe In Comment Field I feel like I'm going to crawl out of my skin Medications Medication Sig Dispensed Refills Start Date End Date Status polyethylene glycol (MIRALAX) 17 GM/Dose powderIndications:C hronic constipation Take 17 g (1 capful) by mouth 2 times daily 850 g 4 09/30/2020 Active gabapentin (NEURONTIN) 300 MG capsuleIndications: Neuropathic pain Start 300 mg at bedtime x 2 days, then increase to 300 mg BID x 3 days, then 300 mg TID x 3 days. 90 capsule 1 09/23/2022 Active Additional Information Patient taking differently: 300 mg 3 TIMES DAILY, ., Reported on 05/13/2023 albuterol (PROAIR HFA/PROVENTIL HFA/VENTOLIN HFA) 108 (90 Base) MCG/ACT inhalerIndications: Mild intermittent asthma with exacerbation Inhale 2 puffs into the lungs every 4 hours as needed for shortness of breath or wheezing 18 g 10/18/2022 Active EPINEPHrine (ANY BX GENERIC EQUIV) 0.3 MG/0.3ML injection 2-packIndications:A llergy to mold,Anaphylactic reaction to bee sting, accidental or unintentional, sequela Inject 0.3 mLs (0.3 mg) into the muscle once as needed for anaphylaxis 2 each 10/18/2022 Active hydrocortisone (CORTAID) 1 % external ointmentIndications :Skin lesion Apply sparingly to affected area three times daily for 14 days. 30 g 02/22/2023 Active Heating Pads (HEATING PAD MOIST/DRY) PADSIndications:Cos tochondritis 1 Pad 2 times daily as needed (rib pain after coughing) 1 box 1 each 1 02/22/2023 Active Additional Information Patient not taking.Reported on 06/20/2023 prazosin (MINIPRESS) 2 MG capsule Take 2 mg by mouth At Bedtime Active cloNIDine (CATAPRES) 0.1 MG tablet Take 0.1 mg by mouth 2 times daily Active Lidocaine (LIDOCARE) 4 % Patch Place 1 patch onto the skin every 24 hours To prevent lidocaine toxicity, patient should be patch free for 12 hrs daily. Active Melatonin 10 MG TABS tablet Take 10 mg by mouth nightly as needed for sleep Active traZODone (DESYREL) 50 MG tablet Take 50 mg by mouth At Bedtime Active fluticasone-salmete rol (ADVAIR) 100-50 MCG/ACT inhalerIndications: Moderate persistent asthma, unspecified whether complicated Inhale 1 puff into the lungs every 12 hours 60 each 3 03/23/2023 Active hydrochlorothiazide (HYDRODIURIL) 12.5 MG tabletIndications:F luid retention in legs Take 1 tablet (12.5 mg) by mouth daily 30 tablet 1 03/23/2023 Active vitamin D3 (CHOLECALCIFEROL) 50 mcg (2000 units) tablet 03/18/2023 Active atomoxetine (STRATTERA) 40 MG capsule 03/29/2023 Active Multiple Vitamin (TAB-A-NIKKI) TABS 03/18/2023 Active prazosin (MINIPRESS) 1 MG capsule 02/18/2023 Active SENEXON-S 8.6-50 MG tablet 03/21/2023 Active omeprazole (PRILOSEC) [address] capsuleIndications: Heartburn Take 1 capsule (40 mg) by mouth daily Take 30-60 minutes before a meal. 30 capsule 1 04/07/2023 Active amoxicillin (AMOXIL) 500 MG capsuleIndications: Acute serous otitis media of left ear, recurrence not specified Take 1 capsule (500 mg) by mouth 3 times daily 30 capsule 04/07/2023 Active Additional Information Patient not taking.Reported on 06/20/2023 topiramate (TOPAMAX) 25 MG tablet TAKE ONE TABLET (25 MG) BY MOUTH DAILY. 06/08/2023 Active propranolol (INDERAL) 20 MG tablet TAKE ONE TABLET (20 MG) BY MOUTH TWICE A DAY. 06/08/2023 Active acetaminophen (TYLENOL) 500 MG tabletIndications:E ncounter for IUD insertion Take 1-2 tablets (500-1,000 mg) by mouth every 6 hours as needed for mild pain 07/15/2023 Active ibuprofen (ADVIL/MOTRIN) 800 MG tabletIndications:E ncounter for IUD insertion Take 1 tablet (800 mg) by mouth every 8 hours as needed for moderate pain 07/15/2023 Active methimazole (TAPAZOLE) 5 MG tablet Take 15 mg by mouth daily Active budesonide-formoter ol (SYMBICORT) 160-4.5 MCG/ACT InhalerIndications: Mild intermittent asthma with acute exacerbation,Non-se asonal allergic rhinitis due to pollen,Angioedema, subsequent encounter,Nut allergy,Atopy Inhale 2 puffs into the lungs 2 times daily 10.2 g 3 10/18/2023 Active levocetirizine (XYZAL) 5 MG tabletIndications:M ild intermittent asthma with acute exacerbation,Non-se asonal allergic rhinitis due to pollen,Angioedema, subsequent encounter,Nut allergy,Atopy Take 1 tablet (5 mg) by mouth every morning 30 tablet 2 10/18/2023 Active emollient (VANICREAM) external creamIndications:At opy Apply topically daily 453 g 3 10/18/2023 Active Active Problems Problem Noted Date Diagnosed Date Pain in joint, ankle and foot, right 10/21/2022 Neuropathic pain 10/21/2022 Closed displaced fracture of medial malleolus of right tibia, initial encounter 10/22/2021 Overview: Added automatically from request for surgery [id number] Back muscle spasm 04/28/2018 Last Assessment & Plan: Acute muscle spasm likely triggered by underlying scoliosis. Valium at night and flexeril during the day to help with muscle spasm . Cannot take prednisone due to her reflux Do not combine with percocet and valium. Work excuse given Thyroid nodule 11/24/2015 Overview: Tiny nodule on right thyroid lobe.-No vascularity. Normal labs. Will reexamine in 6 months to a year or sooner if new symptoms Intermittent asthma, uncomplicated 10/29/2015 Gastroesophageal reflux disease without esophagi tis 07/02/2015 Cervical high risk HPV (human papillomavirus) te st positive 06/26/2014 Overview: 06/26/14 normal pap/+ HR HPV. Plan: repeat pap/HPV test in 1 year. If still + for HR HPV again at that time, then recommend colposcopy. (due 06/26/15). 07/02/15 pap NIL/neg HR HPV. Plan: Cotest in 3 years. If NIL/neg can resume routine screening. 03/19/20 NIL pap, + HR HPV (not 16 or 18). Plan cotest in 1 year due bef 03/19/21. 03/25/20 Pt sent results via [employer] [facility]. 03/26/20 Pt viewed results on [employer]. 03/05/21 Reminder [facility] 04/02/21 Reminder call - lm 05/06/21 Lost to follow-up for pap tracking Chronic constipation 06/26/2013 Anxiety and depression 06/26/2013 Resolved Problems Problem Noted Date Diagnosed Date Resolved Date Pain in joint, ankle and foot, right 12/17/2021 02/12/2022 Localized edema 12/17/2021 02/12/2022 Abnormal gait 12/17/2021 02/12/2022 Right foot pain 02/23/2016 03/31/2016 Peroneal tendonitis, right 02/23/2016 1 05/31/2015 Plantar fasciitis 02/23/2016 03/31/2016 Other symptoms involving ner vous and musculoskeletal systems(781.99) 03/25/2014 11/21/19 15 Muscle weakness (generalized) 03/25/2014 11/20/2014 Muscular wasting and disuse atrophy, not elsewhere classified 03/25/2014 11/20/2014 Pelvic pain complicating 09/17/2013 07/24/2018 Acute bronchospasm 07/18/2013 3 IUD check up 06/26/2013 07/16/2013 Dysmenorrhea 10/22/2011 03/30/2023 Symptom associated with female genital organs 10/22/19 12 03/30/2023 Ovarian cyst 04/15/2009 03/30/2023 Immunizations Name Administration Dates Next Due [id number] Novel Flu 06/23/2009 Influenza (IIV3) PF 03/11/2014,06/23/2009 Influenza Vaccine >6 months,quad, PF 07/02/2015 MMR 09/16/1993 TDAP (Adacel,Boostrix) 10/11/2013 TDAP Vaccine (Adacel) 06/22/2011 Social History Tobacco Use Types Packs/Day Years Used Date Smoking Tobacco: Every Day Cigarettes 0.5 10 Smokeless Tobacco: Former Tobacco Cessation:Ready to Q uit: Not Asked Alcohol Use Standard Drinks/Week Comments Not Currently 0 (1 standard drink = 0.6 oz pur e alcohol) in treatment PHQ-2 Answer Date Recorded PHQ-2 Score 2 10/18/2023 Adolescent Education Answer Date Record ed Getting [...] Answer Date Recorded Do you have housing? (Housin g is defined as stable permanent housing and does not include staying ouside in a car, in a tent, in an abandoned building, in an overnight mcfp, or couch-surfing.) Yes 02/22/2023 Are you worried [...] Orientation Straight 09/29/2020 3: 49 PM CDT Last Filed Vital Signs Vital Sign Reading Time Taken Comments Blood Pressure 96/61 07/15/2023 9:30 AM LAB ENGINEER Pulse 64 07/15/2023 9:30 AM LAB ENGINEER Temperature 36.7 ??C (98 ??F) 07/15/2023 9:42 AM LAB ENGINEER Respiratory Rate 18 07/15/2023 9:42 AM LAB ENGINEER Oxygen Saturation 98% 07/15/2023 9:42 AM LAB ENGINEER Inhaled Oxygen Concentration - - Weight 88 kg (194 lb 0.1 oz) 07/15/2023 6:41 AM LAB ENGINEER Height 166.6 cm (5' 5.59) 07/15/2023 6:41 AM CS T Body Mass Index 31.7 07/15/2023 6:41 AM LAB ENGINEER Plan of Treatment Upcoming Encounters Date Type Department Care Team (Late st Contact Info) Description 12/20/2023 10:45 AM CDT Office Visit [facility] [address] [phone] Corby Centeno MD [address] [place] [phone] Goals Goal Patient Goal Type Associated Problems Recent Progress Patient-Stated? Author MYC ECC ASTHMA WELCOME GOAL Care Plan MYC ECC ASTHMA WELCOME PROBLEM No Octaviano Negron, RN Medical Devices Implanted Type Area Dictaphone Typist Device Identifier Shelf Expiration Date Model / Serial / Lot Iud Contraceptive Device Mirena [id number] - [id number] Implanted:Qty: 1 on 07/15/2023 by Wilma Saba MD at [facility] Contraceptive Device N/A: Uterus HARI 06/29/2025 [id number] 07-28 [id number] Arthrex Ankle Fracture Management System, 2.6mm Drill Bit, Cannulated Implanted:Qty: 1 on 11/04/2021 by Sukumar Villarreal MD at [facility] Right: Ankle [id number] 2220 3 Arthrex Ankle Fracture Management System, 4mm Cannulated, Short Threaded, 40mm Implanted:Qty: 1 on 11/04/2021 by Sukumar Villarreal MD at [facility] Right: Ankle [id number] 2220 3 Arthrex Ankle Fracture Management System, 4mm Cannulated, Short Thread, 50mm Implanted:Qty: 1 on 11/04/2021 by Sukumar Villarreal MD at [facility] Right: Ankle [id number] -50 2220 3 Explanted Type Area Dictaphone Typist Device Identifier Shelf Expiration Date Model / Serial / Lot Arthrex Ankle Fracture Management System, Guidewire W/ Trocar Tip, Threaded, 0.062 In Explanted:Qty: 2 on 11/04/2021 by Sukumar Villarreal MD at [facility] Right: Ankle [id number] Procedures Procedure Name Priority Date/Time Associated Diagnosis Comments VA INTRACUT SKIN TESTS,ALLERGENS Routine 10/18/2023 10:07 PM CDT Mild intermittent asthma with acute exacerbation Non-seasonal allergic rhinitis due to pollen Postnasal drip Angioedema, subsequent encounter Nut allergy Atopy VA ALLERGY SKIN TESTS,ALLERGENS Routine 10/18/2023 10:07 PM CDT Mild intermittent asthma with acute exacerbation Non-seasonal allergic rhinitis due to pollen Postnasal drip Angioedema, subsequent encounter Nut allergy Atopy COMPREHENSIVE METABOLIC PANEL STAT 04/19/2023 10:11 PM LAB ENGINEER HIV ANTIGEN ANTIBODY COMBO Routine 04/07/2023 9:34 AM LAB ENGINEER History of substance abuse (H) HEPATITIS C SCREEN REFLEX TO HCV RNA QUANT AND GENOTYPE Routine 04/07/2023 9:34 AM LAB ENGINEER History of substance abuse (H) LIPID REFLEX TO DIRECT LDL PANEL Routine 03/01/2023 1:33 PM CDT Class 1 obesity without serious comorbidity with body mass index (BMI) of 31.0 to 31.9 in adult, unspecified obesity type GYNECOLOGIC CYTOLOGY Routine 02/22/2023 11:20 AM CDT Cervical cancer screening HPV HIGH RISK TYPES DNA CERVICAL Routine 02/22/2023 11:20 AM CDT Cervical cancer screening from Last 3 Months or Most Recently Relevant to Health Maintenance Results * (ABNORMAL) Comprehensive metabolic panel (04/19/2023 10:11 PM LAB ENGINEER) [facility] Sodium 138 135 - 145 mmol/L 04/19/2023 10:59 PM LAB ENGINEER [facility] Comment:Reference intervals for this test were updated on 02/22/2023 to more accurately reflect our healthy population. There may be differences in the flagging of prior results with similar values performed with this method. Interpretation of those prior results can be made in the context of the updated reference intervals. Potassium 4.0 3.4 - 5.3 mmol/L 04/19/2023 10:59 PM LAB ENGINEER [facility] Carbon Dioxide (CO2) 28 22 - 29 mmol/L 04/19/2023 10:59 PM LAB ENGINEER [facility] Anion Gap 7 7 - 15 mmol/L 04/19/2023 10:59 PM LAB ENGINEER [facility] Urea Nitrogen 16.1 6.0 - 20.0 mg/dL 04/19/2023 10:59 PM LAB ENGINEER [facility] Creatinine 0.89 0.51 - 0.95 mg/dL 04/19/2023 10:59 PM LAB ENGINEER [facility] GFR Estimate 83 >60 mL/min/1. 73m2 04/19/2023 10:59 PM LAB ENGINEER [facility] Calcium 9.2 8.6 - 10.0 mg/dL 04/19/2023 10:59 PM LAB ENGINEER [facility] Chloride 103 98 - 107 mmol/L 04/19/2023 10:59 PM LAB ENGINEER [facility] Glucose 105(H) 70 - 99 mg/dL 04/19/2023 10:59 PM LAB ENGINEER [facility] Alkaline Phosphatase 70 40 - 150 U/L 04/19/2023 10:59 PM LAB ENGINEER [facility] Comment:Reference intervals for this test were updated on 04/12/2023 to more accurately reflect our healthy population. There may be differences in the flagging of prior results with similar values performed with this method. Interpretation of those prior results can be made in the context of the updated reference intervals. AST 19 0 - 45 U/L 04/19/2023 10:59 PM LAB ENGINEER [facility] Comment:Reference intervals for this test were updated on 11/08/2022 to more accurately reflect our healthy population. There may be differences in the flagging of prior results with similar values performed with this method. Interpretation of those prior results can be made in the context of the updated reference intervals. ALT 25 0 - 50 U/L 04/19/2023 10:59 PM LAB ENGINEER [facility] Comment:Reference intervals for this test were updated on 11/08/2022 to more accurately reflect our healthy population. There may be differences in the flagging of prior results with similar values performed with this method. Interpretation of those prior results can be made in the context of the updated reference intervals. Protein Total 6.5 6.4 - 8.3 g/dL 04/19/2023 10:59 PM LAB ENGINEER [facility] Albumin 3.9 3.5 - 5.2 g/dL 04/19/2023 10:59 PM LAB ENGINEER [facility] Bilirubin Total <0.2 <=1.2 mg/dL 04/19/2023 10:59 PM LAB ENGINEER [facility] Blood BLOOD SPECIMEN / Unknown Venipuncture / Unknown 04/19/2023 10:11 PM LAB ENGINEER 04/19/2023 10:19 PM LAB ENGINEER Aida Teague MD LAB - BLOOD ORDERABL ES [facility] [address] [facility], [address] [place] [address] [phone] * HIV Antigen Antibody Combo [place] (04/07/2023 9:34 AM LAB ENGINEER) HIV Antigen Antibody Combo Nonreactive Nonreactive 04/08/2023 10:32 AM LAB ENGINEER [facility] DO Comment:HIV-1 p24 Ag & HIV-1 /HIV-2 Ab Not Detected Blood BLOOD SPECIMEN / Unknown Venipuncture / Unknown 04/07/2023 9:34 AM LAB ENGINEER 04/07/2023 9:34 AM LAB ENGINEER Jeannette Jean Baptiste NP LAB - BLOOD ORDERABL ES [facility] [address] [facility] [address] [phone] * Hepatitis C Screen Reflex to HCV RNA Quant and Genotype (04/07/2023 9:34 AM LAB ENGINEER) Hepatitis C Antibody Nonreactive Nonreactive 04/08/2023 9:37 AM LAB ENGINEER [facility] DO Blood BLOOD SPECIMEN / Unknown Venipuncture / Unknown 04/07/2023 9:34 AM LAB ENGINEER 04/07/2023 9:34 AM LAB ENGINEER Narrative [facility] - 04/08/2023 9:37 AM LAB ENGINEER Assay performance characteristics have not been established for newborns, infants, and children. Jeannette Jean Baptiste NP LAB - BLOOD ORDERABL ES [facility]/Prot/Endo [address] [facility] [place], [address] [place] [address] * Lipid panel reflex to direct LDL Fasting (03/01/2023 1:33 PM CDT) Pathologist [facility] Cholesterol 156 <200 mg/dL 03/02/2023 2:22 PM CDT [facility] Triglycerides 109 <150 mg/dL 03/02/2023 2:22 PM CDT [facility] Direct Measure HDL 60 >=50 mg/dL 2022 2:22 PM CDT [facility] LDL Cholesterol Calculated 74 <=100 mg/dL 03/02/2023 2:22 PM CDT [facility] Non HDL Cholesterol 96 <130 mg/dL 03/02/2023 2:22 PM CDT [facility] Blood BLOOD SPECIMEN / Unknown Venipuncture / Unknown 03/01/2023 1:33 PM CDT 03/01/2023 1:33 PM CDT Narrative [facility] - 03/02/2023 2:22 PM CDT Cholesterol Desirable: ??<200 mg/dL Triglycerides Normal: ??Less than 150 mg/dL Borderline High: ??150-199 mg/dL High: ??200-499 mg/dL Very High: ??Greater than or equal to 500 mg/dL Direct Measure HDL Female: ??Greater than or equal to 50 mg/dL Male: ??Greater than or equal to 40 mg/dL LDL Cholesterol Desirable: ??<100mg/dL Above Desirable: ??100-129 mg/dL Borderline High: ??130-159 mg/dL High: ??160-189 mg/dL Very High: ??>= 190 mg/dL Non HDL Cholesterol Desirable: ??130 mg/dL Above Desirable: ??130-159 mg/dL Borderline High: ??160-189 mg/dL High: ??190-219 mg/dL Very High: ??Greater than or equal to 220 mg/dL Eulalia Luna Xaviercrissyedzaki DATA COLLECTION TECHNICIAN SPINNER TENDER LAB - BLO OD ORDERABLES [facility] [address] [facility], [address] [place] [phone], [facility] [phone] * Pap screen with HPV - recommended age 30 - 65 years (02/22/2023 11:20 AM CDT) Interpretation Negative for Intraepithelial Lesion or Malignancy (NILM) 02/24/2023 3:01 PM CDT [facility] Comment Papanicolaou Test Limitations: Cervical cytology is a screening test with limited sensitivity, and regular screening is critical for cancer prevention. Pap tests are primarily effective for the diagnosis/prevent ion of squamous cell carcinoma, not adenocarcinoma or other cancers. 02/24/2023 3:01 PM CDT [facility] Specimen Adequacy Satisfactory for evaluation, endocervical/nam sformation zone component present 02/24/2023 3:01 PM CDT [facility] Clinical Information irregular bleeding 02/24/2023 3:01 PM CDT [facility] LMP/Menopause Date 02/17/2023[heavier than usual 02/24/2023 3:01 PM CDT [facility] Reflex Testing Yes regardless of result 02/24/2023 3:01 PM CDT [facility] Previous Abnormal? No[+HPV 2020 02/24/2023 3:01 PM CDT [facility] Performing Labs The technical component of this testing was completed at [facility] 02/24/2023 3:01 PM CDT [facility] Brushing CERVIX UTERI STRUCTURE / Unknown Non-blood Collection / Unknown 02/22/2023 11:20 AM CDT 02/22/2023 11:50 AM CDT Eulalia Luna Юлия DATA COLLECTION TECHNICIAN SPINNER TENDER LAB - [facility] [address] [facility] [place], [address] [phone], [facility] [phone] * HPV High Risk Types DNA Cervical (02/22/2023 11:20 AM CDT) Other HR HPV Negative Negative 02/28/2023 12:40 PM CDT [facility] HPV16 DNA Negative Negative 02/28/2023 12:40 PM CDT [facility] HPV18 DNA Negative Negative 02/28/2023 12:40 PM CDT [facility] FINAL DIAGNOSIS This patient's sample is negative for HPV DNA. This test was developed and its performance characteristics determined by the [facility], [facility]. It has not been cleared or approved by the FDA. The laboratory is regulated under CLIA as qualified to perform high-complexity testing. This test is used for clinical purposes. It should not be regarded as investigational or for research. METHODOLOGY: The Amy Anthony 4800 system uses automated extraction, simultaneous amplification of HPV (L1 region) and beta-globin, followed by real time detection of fluorescent labeled HPV and beta globin using specific oligonucleotide probes. The test specifically identifies types HPV 16 DNA and HPV 18 DNA while concurrently detecting the rest of the high risk types (31, 33, 35, 39, 45, 51, 52, 56, 58, 59, 66 or 68). COMMENTS: This test is not intended for use as a screening device for woman under age 30 with normal cervical cytology. Results should be correlated with cytologic and histologic findings. Close clinical followup is recommended. 02/28/2023 12:40 PM CDT [facility] Brushing CERVIX UTERI STRUCTURE / Unknown Non-blood Collection / Unknown 02/22/2023 11:20 AM CDT 02/25/2023 10:26 AM CDT Eulalia Luna Юлия WANG SPINNER TENDER LAB - BLO OD ORDERABLES [facility] Molecular [facility] [address] [facility] [address] [facility], [address] [place] [address], [facility] [phone] from Last 3 Months or Most Recently Relevant to Health Maintenance Additional Health Concerns Active Problems Noted Date Diagnosed Date MYC ECC ASTHMA WELCOME PROBLEM 11/15/2023 Care Teams Doping Supervisor Relationship Specialty Start Date End Date System, Provider Not In PCP - General Clinic 07/15/23 Shirlene Amos MD [address] [facility] [place] [address] Dermatology 12/29/15 Pat Cole APRN SPINNER TENDER [address] [place] [address] [phone] Nurse Practitioner 01/19/22 Letha Manzanares MD [address] [place] [address] [phone] Ophthalmology 03/25/23 Corby Centeno MD [address] [place] [address] [phone] Dermatology 03/29/23 Cynthia Dubon MD [address] [place] [address] [phone] Cardiovascular Disease 04/19/23 Letha Manzanares MD [address] [place] [address] [phone] Assigned Surgical Provider 04/23/23 Wilma Saba MD [address] [phone] Assigned OBGYN Provider 04/09/23 Jeannette Jean Baptiste NP [address] [phone] Assigned PCP 06/23/23 Cynthia Dubon MD [address] [place] [address] [phone] Assigned Heart and Vascular Provider 07/01/23
--- OUTSIDE RECORDS SUMMARY | 2023-11-16 11:01 | XMS_ITS | Encounter Summary ---
Author Organization [facility] Address [address] [place] [address] Care Team Providers Care Geospatial Image Analyst Name Role Phone Unavailable Primary Care Provider Unavailabl e Reason for Visit * Reason Onset Date Comments [facility] Lab Results 08/16/2023 Encounter Details Date Type Department Care Team (Latest Contact Info) Description 08/16/2023 Clinical Communication Division of Endocrinology in [place], [place] [address] [place] [phone] Minerva Mast M.D. [address] [place] [phone] [facility] Lab Results Social History Tobacco Use Types Packs/Day Years Used Date Smoking Tobacco: Every Day Cigarettes Passive Smoke Exposure: Current Smokeless Tobacco: Never [facility] Utilities Answer Date Recorded In the [...] your living situation today? I have a [facility] place to live 08/24/2023 Sex and [...]
--- OUTSIDE RECORDS SUMMARY | 2023-11-16 11:01 | XMS_ITS | Encounter Summary ---
Author Organization [facility] Address [address] [place] [address] Care Team Providers Care Slice Cutting Machine Operator Helper Name Role Phone Unavailable Primary Care Provider Unavailabl e Reason for Referral * Outpatient (Routine) - Authorized Specialty Diagnoses / Procedures Referred By Sasha rice Referred To Contact General Surgery Diagnoses Hyperthyroidism Minerva Mast M.D. [address] [place] [phone] [facility] Referral ID Status Reason Start Date Expiration Date V isits Requested Visits Authorized [id number] Authorized 08/29/2023 02/27/2025 1 1 Reason for Visit * Outpatient (Routine) - Closed Specialty Diagnoses / Procedures Referred By Sasha rice Referred To Contact Endocrinology Diagnoses Hyperthyroidism Minerva Mast M.D. [address] [place] [phone] Minerva Mast M.D. [address] [place] [phone] Referral ID Status Reason Start Date Expiration Date Visits Re quested Visits Authorized [id number] Closed 08/10/2023 02/08/2025 1 1 Encounter Details Date Type Department Care Team ([facility] st Contact Info) Description 08/29/2023 11:00 AM CDT Telemedicine Division of Endocrinology in [place], [place] [address] [place] [phone] Minerva Mast M.D. [address] [place] [phone] Hyperthyroidism Social History Tobacco Use Types Packs/Day Years Used Date Smoking Tobacco: Former Cigarettes Passive Smoke Exposure: Current Smokeless Tobacco: Never [facility] Utilities Answer Date Recorded In the past [...] your living situation today? I have a [facility] place to live 08/24/2023 Sex and Gender Information Value Date Recorded Sex Assigned at Female 08/24/2023 7:50 PM CDT Gender Identity Female 08/24/2023 7:50 PM CDT Sexual Orientation Straight 08/24/2023 7: 50 PM CDT documented as of this encounter Progress Notes * Minerva Mast M.D. - 08/29/2023 11:00 AM CDT Problem List Endocrine/Metabolic Hyperthyroidism Overview Hyperthyroidism consistent with Graves' disease, not on therapy yet except propranolol PMHx: sober x many months, living in transitional housing with own room, doing well FHx: no clear Graves' disease Current Assessment & Plan Video visit completed with Natalie; she is [...] stop post op and switch to above Relevant Orders S-TSH (Thyroid-Stimulating Hormone - Sensitive) T4 (Thyroxine), Free T3 (Triiodothyronine), Total General Surgery - Endocrine consult (clinic) documented in this encounter Miscellaneous Notes * Assessment & Plan Note - Minerva Mast M.D. - 08/29/2023 11:29 AM CDT Associated Problem(s): Hyperthyroidism Video visit completed with Natalie; she is [...] stop post op and switch to above documented in this encounter Plan of Treatment Scheduled Referrals Name Type Priority Associated Diagnoses Orde r Jewel General Surgery - Endocrine consult (clinic) Outpatient Referral Routine Hyperthyroidism Expected: 08/29/2023, Expires: 11/27/2024 documented as of this encounter Visit Diagnoses Diagnosis Hyperthyroidism documented in this encounter
--- OUTSIDE RECORDS SUMMARY | 2023-11-16 11:01 | XMS_ITS | Encounter Summary ---
Author Organization [facility] Address [address] [place] [address] Care Team Providers Care Armored Car Guard And Driver Name Role Phone BetteShirlene MD Unavailable [phone] Pat Cole APRN CARPET FLOOR LAYER APPRENTICE Unavailable [phone] Letha Manzanares MD Unavailable [phone] Corby Centeno MD Unavailable [phone] Cynthia Dubon MD Unavailable [phone] Letha Manzanares MD Unavailable [phone] Wilma Saba MD Unavailable [phone] Jeannette [facility] Baptiste NP Unavailable [phone] Cynthia Dubon MD Unavailable [phone] System, Provider Not In Primary Care Provider Un available Encounter Details Date Type Department Care Team (Late st Contact Info) Description 11/09/2023 [facility] [address] [phone] Rosalind Jacobo, RN Social History Tobacco Use Types Packs/Day Years [...] Date Recorded Do you have housing? (Juarez g is defined as stable permanent housing and does not include staying ouside in a car, in a tent, in an abandoned building, in an overnight halfway, or couch-surfing.) Yes 02/22/2023 Are you worried [...] as of this encounter Plan of Treatment Upcoming Encounters Date Type Department Care Team (Late st Contact Info) Description 12/20/2023 10:45 AM CDT Office Visit [facility] [address] [phone] Corby Cenetno MD [address] [place] [address] documented as of this encounter Visit Diagnoses Not on filedocumented in this encounter Additional Health Concerns Assessment Noted Time PHQ-9 Depression Total Score: 1 04/07/20 23 7:51 AM SIZER MACHINE documented as of this encounter Care Teams Armored Car Guard And Driver Relationship Specialty Start Date End Date System, Provider Not In PCP - General Clinic 07/15/23 Shirlene Amos MD [address] [place] [address] [place] [id number] Dermatology 12/29/15 Pat Cole APRN CARPET FLOOR LAYER APPRENTICE [address] [place] [address] [phone] Nurse Practitioner 01/19/22 Letha Manzanares MD [address] [place] [address] [phone] Ophthalmology 03/25/23 Corby Centeno MD [address] [place] [phone] Dermatology 03/29/23 Cynthia Dubon MD [address] [place] [address] [phone] Cardiovascular Disease 04/19/23 Letha Manzanares MD [address] [place] [address] [phone] Assigned Surgical Provider 04/23/23 Wilma Saba MD [address] [place] [address] Assigned OBGYN Provider 04/09/23 Jeannette Jean Baptiste NP [address] [place] [address] [phone] Assigned PCP 06/23/23 Cynthia Dubon MD [address] [place] [address] Assigned Heart and Vascular Provider 07/01/23 documented as of this encounter
--- OUTSIDE RECORDS SUMMARY | 2023-11-16 11:01 | XMS_ITS | Referral Summary ---
Author Organization [facility] Address [address] [place] [address] Care Team Providers Care Forcer Maker Name Role Phone Unavailable Primary Care Provider Unavailabl e Source Comments Patient records contain information from all sites at [facility]. For routine questions regarding patient records, call [phone] during business hours, M-F 8:00 AM - 5:00 PM Central Time. Record requests for emergency care only can be directed to [phone] at any time.[facility] Encounters Date Type Department Care Team Description 08/29/2023 11:00 AM CDT Telemedicine Division of Endocrinology in [address] [phone] Minerva Mast M.D. Hyperthyroidism 08/25/2023 12:00 PM CDT Clinical Communication Virtual Review in [address] [phone] Pre-visit Intake 08/16/2023 Clinical Communication Division of Endocrinology in [address] [phone] Minerva Mast M.D. [facility] Lab Results from Last 3 Months Allergies Active Allergy Reactions Criticality Noted Date Comments Sandgap Other (see comments) Low 06/13/2023 Cyclobenzaprine Other [...] stop post op and switch to above Social History Tobacco Use Types Packs/Day Years [...] your living situation today? I have a [facility] place to live 08/24/2023 Sex and Gender Information Value Date Recorded Sex Assigned at Female 08/24/2023 7:50 PM CDT Gender Identity Female 08/24/2023 7:50 PM CDT Sexual Orientation Straight 08/24/2023 7: 50 PM CDT Last Filed Vital Signs Vital Sign Reading Time Taken Comments Blood Pressure 116/77 06/23/2023 8:33 AM UPSTREAM BIOMANUFACTURING TECHNICIAN Pulse 76 06/23/2023 8:33 AM UPSTREAM BIOMANUFACTURING TECHNICIAN Temperature - - Respiratory Rate - - Oxygen Saturation - - Inhaled Oxygen Concentration - - Weight 85.5 kg (188 lb 7.9 oz) 06/23/2023 8:33 A M UPSTREAM BIOMANUFACTURING TECHNICIAN Height 166.8 cm (5' 5.67) 06/23/2023 8:33 AM CS T Body Mass Index 30.73 06/23/2023 8:33 AM UPSTREAM BIOMANUFACTURING TECHNICIAN Plan of Treatment Not on file Medical Devices Implanted Type Area Help Desk Support Specialist Device Identifier Shelf Expiration Date Model / [...]
--- OUTSIDE RECORDS SUMMARY | 2023-11-16 11:01 | XMS_ITS ---
Author Organization [facility] Address [address] [place] [address] Care Team Providers Care Civil Engineering Project Designer Name Role Phone Unavailable Unavailable Unavailable Surgery Details Not on file Complications Check Surgery Details section. Procedure Estimated Blood Loss Check Surgery Details section. Procedure Findings Check Surgery Details section. Procedure Specimens Taken Check Surgery Details section.
--- OUTSIDE RECORDS SUMMARY | 2023-11-16 11:01 | XMS_ITS | Encounter Summary ---
Author Organization [facility] Address [address] [place] [address] Care Team Providers Care Package Delivery Driver Name Role Phone BetteShirlene MD Unavailable Pat Cole APRN INSTALLER INTERIOR ASSEMBLIES Unavailable [phone] Letha Manzanares MD Unavailable [phone] Corby Centeno MD Unavailable [phone] Cynthia Dubon MD Unavailable [phone] Letha Manzanares MD Unavailable [phone] Wilma Saba MD Unavailable [phone] Jeannette Jean Baptiste NP Unavailable [phone] Cynthia Dubon MD Unavailable [phone] System, Provider Not In Primary Care Provider Un available Encounter Details Date Type Department Care Team (Latest Contact Info) Description 10/18/2023 Travel Social History Tobacco Use Types Packs/Day Years [...] in an abandoned building, in an overnight residential, or couch-surfing.) Yes 02/22/2023 Are you worried [...] Description 12/20/2023 10:45 AM CDT Office Visit [facility] [address] [phone] Corby Centeno MD [address] [place] [address] documented as of this encounter Visit Diagnoses Not on filedocumented in this encounter Additional Health Concerns Assessment Noted Time PHQ-9 Depression Total Score: 1 04/07/20 7:51 AM COMMUNITY THEATER ACTOR documented as of this encounter Care Teams Package Delivery Driver Relationship Specialty Start Date End Date System, Provider Not In PCP - General Clinic 07/15/23 Shirlene Amos MD [address] [place] [address] [place] [address] Dermatology 12/29/15 Pat Cole APRN INSTALLER INTERIOR ASSEMBLIES [address] [place] [address] [phone] Nurse Practitioner 01/19/22 Letha Manzanares MD [address] [place] [address] [phone] Ophthalmology 03/25/23 Corby Centeno MD [address] [place] [address] [phone] Dermatology 03/29/23 Cynthia Dubon MD [address] [place] [address] [phone] Cardiovascular Disease 04/19/23 Letha Manzanares MD [address] [place] [address] [phone] Assigned Surgical Provider 04/23/23 Wilma Saba MD [address] [phone] Assigned OBGYN Provider 04/09/23 Jeannette Jean Baptiste, ANGEL [address] [place] [address] [phone] Assigned PCP 06/23/23 Cynthia Dubon MD [address] [place] [address] Assigned Heart and Vascular Provider 07/01/23 documented as of this encounter
--- OUTSIDE RECORDS SUMMARY | 2023-11-16 11:01 | XMS_ITS | Clinical Summary ---
Author Organization [place] Address [address] [facility] [place] [address] Care Team Providers Care Coffee Break Attendant Name Role Phone Bette Shirlene Floyd MD Unavailable Pat Cole APRN PROMOTION SPECIALIST Unavailable Letha Manzanares MD Unavailable [phone] Corby Centeno MD Unavailable Cynthia Dubon MD Unavailable [phone] Letha Manzanares MD Unavailable [phone] Wilma Saba MD Unavailable [phone] Jeannette Jean Baptiste NP Unavailable [phone] Cynthia Dubon MD Unavailable [phone] System, Provider Not In Primary Care Provider Un available Allergies Active Allergy Reactions Criticality Noted Date [...] Overview: Added automatically from request for surgery [id number] Back muscle spasm 04/28/2018 Last Assessment & [...] bef 03/19/21. 03/25/20 Pt sent results via Tappit. 03/26/20 Pt viewed results on UC CEINt. 03/05/21 Reminder mychart 04/02/21 Reminder call - lm 05/06/21 Lost [...] 10/22/19 12 03/30/2023 Ovarian cyst 04/15/2009 03/30/2023 Encounters Date Type Department Care Team Description 11/09/2023 MyC Medical Advice [facility] [address] [address] Rosalind Jacobo RN 10/18/2023 8:00 AM CDT Office Visit [facility] [address] [address] Corby Centeno MD Mild intermittent asthma with acute exacerbation (Primary Dx); Non-seasonal allergic rhinitis due to pollen; Postnasal drip; Angioedema, subsequent encounter; Nut allergy; Atopy 10/18/2023 Travel 10/18/2023 PRE VISIT [facility] [address] [address] Corby Centeno MD Previsit 10/14/2023 Telephone [facility] [address] [address] Corby Centeno MD Appointment (Allergy new pt appt) 10/14/2023 MyC Medical Advice [facility] [address] [address] [facility] Immunizations Name Administration Dates Next Due P3u5-23 Novel Flu 06/23/2009 Influenza (IIV3) PF 03/11/2014,06/23/2009 Influenza Vaccine >6 months,quad, PF 07/02/2015 MMR 09/16/1993 TDAP (Adacel,Boostrix) 10/11/2013 TDAP Vaccine (Adacel) 06/22/2011 Family History Medical History Relation Comments Cancer Father Heart Failure Father Cancer Maternal Grandfather Cancer Maternal Grandmother Asthma Mother Depression Mother Gastrointestinal Disease Mother acid re flux Heart Failure Mother Breast Cancer Other Hypertension Sister C.A.D. No family hx of Cancer - colorectal No family hx of Cerebrovascular Disease No family hx of Diabetes No family hx of Melanoma No family hx of Prostate Cancer No family hx of Skin Cancer No family hx of Relation Status Comments Father Alive Maternal Grandfather Maternal Grandmother Mother Alive Other Paternal Grandfather Paternal Grandmother Sister Alive Social History Tobacco Use Types Packs/Day Years [...] Comments Blood Pressure 96/61 07/15/2023 9:30 AM NICKEL PLANT OPERATOR Pulse 64 07/15/2023 9:30 AM NICKEL PLANT OPERATOR Temperature 36.7 ??C (98 ??F) 07/15/2023 9:42 AM NICKEL PLANT OPERATOR Respiratory Rate 18 07/15/2023 9:42 AM NICKEL PLANT OPERATOR Oxygen Saturation 98% 07/15/2023 9:42 AM NICKEL PLANT OPERATOR Inhaled Oxygen Concentration - - Weight 88 kg (194 lb 0.1 oz) 07/15/2023 6:41 AM NICKEL PLANT OPERATOR Height 166.6 cm (5' 5.59) 07/15/2023 6:41 AM CS T Body Mass Index 31.7 07/15/2023 6:41 AM NICKEL PLANT OPERATOR Plan of Treatment Upcoming Encounters Date Type Department Care Team (Late st Contact Info) Description 12/20/2023 10:45 AM CDT Office Visit [facility] [address] [address] Corby Centeno MD [address] [place] [address] Health Maintenance Due Date Last Done Comments ADVANCE CARE PLANNING 1981 ANNUAL REVIEW OF HM ORDERS 1981 MAMMO SCREENING 1981 URINE DRUG SCREEN 1981 Pneumococcal Vaccine: Pediatrics (0 to 5 Years) and At-Risk Patients (6 to 64 Years) (1 of 2 - PCV) 1987 HEPATITIS B IMMUNIZATION (1 of 3 - 19+ 3-dose series) 2000 ASTHMA ACTION PLAN 05/26/2021 05/26/2020 COVID-19 Vaccine ( - 2022- season) 2023 NICOTINE/TOBACCO CESSATION COUNSELING Q 1 YR 04/13/2023 04/13/2022, 03/31/2021, 03/19/2020, Additional history exists DTAP/TDAP/TD IMMUNIZATION (3 - Td or Tdap) 10/12/2023 10/11/2013, 06/22/2011 YEARLY PREVENTIVE VISIT 04/07/2024 04/07/20 23, 03/19/2020, 07/02/2015, Additional history exists ASTHMA CONTROL TEST 04/19/2024 10/18/2023, 04/18/2023, 10/18/2022, Additional history exists HPV TEST 02/22/2026 02/22/2023, 02/28, 07/02/2015 PAP 02/22/2026 02/22/2023, 02/28, 07/02/2015, Additional history exists GLUCOSE 04/19/2026 04/19/2023, 11/0 01/2023, 02/22/2023, Additional history exists LIPID 03/01/2028 03/01/2023, 07/02/2015 HPV FOLLOW-UP Completed 02/22/2023, 02/28, 07/02/2015 PAP FOLLOW-UP Completed 02/22/2023, 02/28, 07/02/2015, Additional history exists HEPATITIS C SCREENING Completed 04/07/2023 HIV SCREENING Completed 04/07/2023, 01/29, 06/26/2014 INFLUENZA VACCINE Completed 04/27/2023, , 03/11/2014, Additional history exists PHQ-2 (once per calendar year) Completed 10/18/2023, 04/18/2023, 04/07/2023, Additional history exists HPV IMMUNIZATION Aged Out No longer e ligible based on patient's age to complete this topic IPV IMMUNIZATION Aged Out No longer e ligible based on patient's age to complete this topic MENINGITIS IMMUNIZATION Aged Out No l onger eligible based on patient's age to complete this topic RSV MONOCLONAL ANTIBODY Aged Out No l onger eligible based on patient's age to complete this topic Goals Goal Patient Goal Type Associated Problems Recent Progress Patient-Stated? Author MYC ECC ASTHMA WELCOME GOAL Care Plan MYC ECC ASTHMA WELCOME PROBLEM No Octaviano Negron, RN Medical Devices Implanted Type Area Blueprinting Machine Operator Device Identifier Shelf Expiration Date Model / Serial / Lot Iud Contraceptive Device Mirena [id number] - [id number] Implanted:Qty: 1 on 07/15/2023 by Wilma Saba MD at [facility] Contraceptive Device N/A: Uterus HARI 06/29/2025 [id number] Arthrex Ankle Fracture Management System, 2.6mm Drill Bit, Cannulated Implanted:Qty: 1 on 11/04/2021 by Sukumar Villarreal MD at [facility] Right: Ankle [id number] 2220 3 Arthrex Ankle Fracture Management System, 4mm Cannulated, Short Threaded, 40mm Implanted:Qty: 1 on 11/04/2021 by Sukumar Villarreal MD at [facility] Right: Ankle [id number] 2220 3 Arthrex Ankle Fracture Management System, 4mm Cannulated, Short Thread, 50mm Implanted:Qty: 1 on 11/04/2021 by Sukumar Villarreal MD at [facility] Right: Ankle [id number] -2220 3 Explanted Type Area Blueprinting Machine Operator Device Identifier Shelf Expiration Date Model / Serial / Lot Arthrex Ankle Fracture Management System, Guidewire W/ Trocar Tip, Threaded, 0.062 In Explanted:Qty: 2 on 11/04/2021 by Sukumar Villarreal MD at [facility] Right: Ankle [id number] 2220 3 Procedures Procedure Name Priority Date/Time Associated Diagnosis Comments NH INTRACUT SKIN TESTS,ALLERGENS Routine 10/18/2023 10:07 PM CDT Mild intermittent asthma with acute exacerbation Non-seasonal allergic rhinitis due to pollen Postnasal drip Angioedema, subsequent encounter Nut allergy Atopy NH ALLERGY SKIN TESTS,ALLERGENS Routine 10/18/2023 10:07 PM CDT Mild intermittent asthma with acute exacerbation Non-seasonal allergic rhinitis due to pollen Postnasal drip Angioedema, subsequent encounter Nut allergy Atopy COMPREHENSIVE METABOLIC PANEL STAT 04/19/2023 10:11 PM NICKEL PLANT OPERATOR HIV ANTIGEN ANTIBODY COMBO Routine 04/07/2023 9:34 AM NICKEL PLANT OPERATOR History of substance abuse (H) HEPATITIS C SCREEN REFLEX TO HCV RNA QUANT AND GENOTYPE Routine 04/07/2023 9:34 AM NICKEL PLANT OPERATOR History of substance abuse (H) LIPID REFLEX [...] (ABNORMAL) Comprehensive metabolic panel (04/19/2023 10:11 PM NICKEL PLANT OPERATOR) Sodium 138 135 - 145 mmol/L 04/19/2023 10:59 PM NICKEL PLANT OPERATOR [facility] Comment:Reference intervals for this test were updated on 02/22/2023 to more accurately reflect our healthy population. There may be differences in the flagging of prior results with similar values performed with this method. Interpretation of those prior results can be made in the context of the updated reference intervals. Potassium 4.0 3.4 - 5.3 mmol/L 04/19/2023 10:59 PM NICKEL PLANT OPERATOR [facility] Carbon Dioxide (CO2) 28 22 - 29 mmol/L 04/19/2023 10:59 PM NICKEL PLANT OPERATOR [facility] Anion Gap 7 7 - 15 mmol/L 04/19/2023 10:59 PM NICKEL PLANT OPERATOR [facility] Urea Nitrogen 16.1 6.0 - 20.0 mg/dL 04/19/2023 10:59 PM NICKEL PLANT OPERATOR [facility] Creatinine 0.89 0.51 - 0.95 mg/dL 04/19/2023 10:59 PM NICKEL PLANT OPERATOR [facility] GFR Estimate 83 >60 mL/min/1. 73m2 04/19/2023 10:59 PM NICKEL PLANT OPERATOR [facility] Calcium 9.2 8.6 - 10.0 mg/dL 04/19/2023 10:59 PM NICKEL PLANT OPERATOR [facility] Chloride 103 98 - 107 mmol/L 04/19/2023 10:59 PM NICKEL PLANT OPERATOR [facility] Glucose 105(H) 70 - 99 mg/dL 04/19/2023 10:59 PM NICKEL PLANT OPERATOR [facility] Alkaline Phosphatase 70 40 - 150 U/L 04/19/2023 10:59 PM NICKEL PLANT OPERATOR [facility] Comment:Reference intervals for this test were updated on 04/12/2023 to more accurately reflect our healthy population. There may be differences in the flagging of prior results with similar values performed with this method. Interpretation of those prior results can be made in the context of the updated reference intervals. AST 19 0 - 45 U/L 04/19/2023 10:59 PM NICKEL PLANT OPERATOR [facility] Comment:Reference intervals for this test were updated on 11/08/2022 to more accurately reflect our healthy population. There may be differences in the flagging of prior results with similar values performed with this method. Interpretation of those prior results can be made in the context of the updated reference intervals. ALT 25 0 - 50 U/L 04/19/2023 10:59 PM NICKEL PLANT OPERATOR [facility] Comment:Reference intervals for this test were updated on 11/08/2022 to more accurately reflect our healthy population. There may be differences in the flagging of prior results with similar values performed with this method. Interpretation of those prior results can be made in the context of the updated reference intervals. Protein Total 6.5 6.4 - 8.3 g/dL 04/19/2023 10:59 PM NICKEL PLANT OPERATOR [facility] Albumin 3.9 3.5 - 5.2 g/dL 04/19/2023 10:59 PM NICKEL PLANT OPERATOR [facility] Bilirubin Total <0.2 <=1.2 mg/dL 04/19/2023 10:59 PM NICKEL PLANT OPERATOR [facility] Blood BLOOD SPECIMEN / Unknown Venipuncture / Unknown 04/19/2023 10:11 PM NICKEL PLANT OPERATOR 04/19/2023 10:19 PM NICKEL PLANT OPERATOR Aida Teague MD LAB - BLOOD ORDERABL ES [facility] [address] [facility], [address] [phone], [facility] [phone] * HIV Antigen Antibody Combo [place] (04/07/2023 9:34 AM NICKEL PLANT OPERATOR) HIV Antigen Antibody Combo Nonreactive Nonreactive 04/08/2023 10:32 AM NICKEL PLANT OPERATOR SPECIALTY CORE/PROT/EN DO Comment:HIV-1 p24 Ag & HIV-1 /HIV-2 Ab Not Detected Blood BLOOD SPECIMEN / Unknown Venipuncture / Unknown 04/07/2023 9:34 AM NICKEL PLANT OPERATOR 04/07/2023 9:34 AM NICKEL PLANT OPERATOR Jeannette Jean Baptiste NP LAB - BLOOD ORDERABL ES [facility] SPECIALTY CORE/PROT/ENDO Specialty Core/Prot/Endo [address] [facility] Building, [address] [phone] * Hepatitis C Screen Reflex to HCV RNA Quant and Genotype (04/07/2023 9:34 AM NICKEL PLANT OPERATOR) Hepatitis C Antibody Nonreactive Nonreactive 04/08/2023 9:37 AM NICKEL PLANT OPERATOR SPECIALTY CORE/PROT/EN DO Blood BLOOD SPECIMEN / Unknown Venipuncture / Unknown 04/07/2023 9:34 AM NICKEL PLANT OPERATOR 04/07/2023 9:34 AM NICKEL PLANT OPERATOR Narrative [facility] SPECIALTY CORE/PROT/ENDO - 04/08/2023 9:37 AM NICKEL PLANT OPERATOR Assay performance characteristics have not been established for newborns, infants, and children. Jeannette Jean Baptiste NP LAB - BLOOD ORDERABL ES [facility] SPECIALTY CORE/PROT/ENDO [facility] Specialty Core/Prot/Endo [address] [facility] [address] [facility], [address] [phone] * Lipid panel reflex to direct LDL Fasting (03/01/2023 1:33 PM CDT) Cholesterol 156 <200 mg/dL 03/02/2023 2:22 PM [...] than or equal to 220 mg/dL Eulalia Henrysyedzaki KATHLEEN MASTERS LAB - BLO WAYNE ORDERABLES [facility], [address] [address], [facility] [phone] * Pap screen with HPV - recommended age 30 - 65 years (02/22/2023 11:20 AM CDT) Interpretation Negative for Intraepithelial Lesion or Malignancy (NILM) 02/24/2023 3:01 PM CDT [facility] Comment Papanicolaou Test Limitations: Cervical cytology [...] component of this testing was completed at [facility] 02/24/2023 3:01 PM CDT [facility] Brushing CERVIX UTERI STRUCTURE / Unknown Non-blood Collection / Unknown 02/22/2023 11:20 AM CDT 02/22/2023 11:50 AM CDT Eulalia Luna Юлия WANG PROMOTION SPECIALIST LAB - IRENE KER AP [facility] Specialty Lab [address] [facility] [address] Building, [address] [place] [address], [facility] [phone] * HPV High Risk Types DNA Cervical (02/22/2023 11:20 AM CDT) Other HR HPV Negative Negative 02/28/2023 12:40 PM CDT [facility] HPV16 DNA Negative Negative 02/28/2023 12:40 PM CDT [facility] HPV18 DNA Negative Negative 02/28/2023 12:40 PM CDT [facility] FINAL DIAGNOSIS This patient's sample is negative for HPV DNA. This test was developed and its performance characteristics determined by the [facility], Molecular Diagnostics Laboratory. It has not been [...] CDT 02/25/2023 10:26 AM CDT Eulalia Luna Xaviercrisjosé miguel WANG CNP LAB - BLO WAYNE ORDERABLES [facility]ST[facility] Molecular Diagnostics [address] [facility] [address] [facility], [address] [place] [address], [facility] [phone] from Last 3 Months or Most Recently Relevant to Health Maintenance Additional Health Concerns Active Problems Noted Date Diagnosed Date MYC ECC ASTHMA WELCOME PROBLEM 11/15/2023 Care Teams Coffee Break Attendant Relationship Specialty Start Date End Date System, Provider Not In PCP - General Clinic 07/15/23 Shirlene Amos MD [facility] [facility] [address] [place] [phone] Dermatology 12/29/15 Pat Cole APRN PROMOTION SPECIALIST [address] [place], [place] [address] Nurse Practitioner 01/19/22 Letha Manzanares MD [address] [place] [address] Ophthalmology 03/25/23 Corby Centeno MD [address] [place] [address] MD Dermatology 03/29/23 Cynthia Dubon MD [address] [place] [address] Cardiovascular Disease 04/19/23 Letha Manzanares MD [address] [place] [address] [phone] Assigned Surgical Provider 04/23/23 Wilma Saba MD [address] [place] [address] [id number] Assigned OBGYN Provider 04/09/23 Jeannette Jean Baptiste NP [address] [place] [address] [id number] Assigned PCP 06/23/23 Cynthia Dubon MD [address] [place] [address] [id number] Assigned Heart and Vascular Provider 07/01/23
--- OUTSIDE RECORDS SUMMARY | 2023-11-16 11:02 | XMS_ITS | Encounter Summary ---
Author Organization [place] Address [address] [facility] [place] [address] Care Team Providers Care Handbag Frames Inspector Name Role Phone ZohaibyanelisShirlene MD Unavailable [phone] [facility] Primary Care Provider Burton Duncan MD Unavailable [phone] Pat Cole APRN JOURNEYMAN PRESS OPERATOR Unavailable [phone] Yohana Estes PA-C Unavailable [phone] Letha Manzanares MD Unavailable [phone] Corby Centeno MD Unavailable [phone] Cynthia Dubon MD Unavailable [phone] Letha Manzanares MD Unavailable [phone] Wilma Saba MD Unavailable [phone] Jeannette Jean Baptiste NP Unavailable [phone] Cynthia Dubon MD Unavailable System, Provider Not In Primary Care Provider Un available Encounter Details Date Type Department Care Team (Late st Contact Info) Description 05/11/2023 MyC Medical Advice [facility] [address] [place] [address] Rosa Reyes CMA Social History Tobacco Use Types Packs/Day Years Used Date Smoking Tobacco: Former Cigarettes 0.5 10 Smokeless Tobacco: Never Alcohol Use Standard Drinks/Week Comments Not Currently [...] in an abandoned building, in an overnight snf, or couch-surfing.) Yes 02/22/2023 Are you worried [...] Description 12/20/2023 10:45 AM CDT Office Visit [facility] [address] [phone] Corby Centeno MD [address] [place], [place] 2057[address] documented as of this encounter Visit Diagnoses Not on filedocumented in this encounter Additional Health Concerns Assessment Noted Time PHQ-9 Depression Total Score: 1 04/07/20 23 7:51 AM TECHNICAL APPLICATIONS SCIENTIST documented as of this encounter Care Teams Handbag Frames Inspector Relationship Specialty Start Date End Date Clinic - [facility] [id number] [place] [address] PCP - General Clinic 10/03/22 07/14/23 System, Provider Not In PCP - General Clinic 07/15/23 [place] [address] [place] [address] [place] [address] Dermatology 12/29/15 Burton Duncan MD [address] [place] [address] [phone] Assigned Musculoskeletal Provider 12/19/21 07/21/23 Pat Cole APRN CNP [address] [place] [address] [id number] Nurse Practitioner 01/19/22 Yohana Estes PA-C [address] [place] [address] Assigned PCP 05/08/22 06/22/23 Letha Manzanares MD [address] [place], [place] 772[address] Ophthalmology 03/25/23 Corby Centeno MD [address] [place] [address] MD Dermatology 03/29/23 Cynthia Dubon MD [address] [place] [address] Cardiovascular Disease 04/19/23 Letha Manzanares MD [address] [place], [place] [phone] Assigned Surgical Provider 04/23/23 Wilma Saba MD [address] [phone] Assigned OBGYN Provider 04/09/23 Jeannette Jean Baptiste NP [address] 168575 Assigned PCP 06/23/23 Cynthia Dubon MD [address] [place] [address] [id number] Assigned Heart and Vascular Provider 07/01/23 documented as of this encounter
--- OUTSIDE RECORDS SUMMARY | 2023-11-16 11:02 | XMS_ITS | Encounter Summary ---
Author Organization [place] Address [address] [facility] [place] [address] Care Team Providers Care Hospital Manager Name Role Phone ZohaibyanelisShirlene MD Unavailable [phone] [facility] Primary Care Provider Burton Duncan MD Unavailable [phone] Pat Cole APRN STRAWBERRY GROWER Unavailable [phone] Yohana Estes PA-C Unavailable [phone] Letha Manzanares MD Unavailable [phone] Corby Centeno MD Unavailable [phone] Cynthia Dubon MD Unavailable [phone] Letha Manzanares MD Unavailable [phone] Wilma Saba MD Unavailable [phone] Jeannette Jean Baptiste NP Unavailable [phone] Cynthia Dubon MD Unavailable [phone] System, Provider Not In Primary Care Provider Un available Encounter Details Date Type Department Care Team (Late st Contact Info) Description 12/14/[address] [facility] [address] [facility] [address] [place] [phone] [facility] Social History Tobacco Use Types Packs/Day Years Used Date Smoking Tobacco: Every Day Cigarettes 0.5 10 Smokeless Tobacco: Never Alcohol Use Standard Drinks/Week Comments Yes 0 (1 standard drink = 0.6 oz pur e alcohol) rare PHQ-2 Answer Date Recorded PHQ-2 Score 0 10/18/2022 Sex and Gender Information Value Date Recorded Sex Assigned at Female 09/29/2020 3:49 PM CDT Gender Identity Female 09/29/2020 3:49 PM CDT Sexual Orientation Straight 09/29/2020 3: 49 PM CDT documented as of this encounter Plan of Treatment Upcoming Encounters Date Type Department Care Team (Late st Contact Info) Description 12/20/2023 10:45 AM CDT Office Visit [facility] [address] [phone] Corby Centeno MD [address] [place] [address]75[address] documented as of this encounter Visit Diagnoses Not on filedocumented in this encounter Additional Health Concerns Assessment Noted Time PHQ-9 Depression Total Score: 1 10/19/19 2:57 PM CDT documented as of this encounter Care Teams Hospital Manager Relationship Specialty Start Date End Date Clinic - [facility] [address] [place] [address] PCP - General Clinic 10/03/22 07/14/23 System, Provider Not In PCP - General Clinic 07/15/23 Shirlene Amos MD [address] [facility] [place] [address] Dermatology 12/29/15 Burton Duncan MD [address] [place] [address] Assigned Musculoskeletal Provider 12/19/21 07/21/23 Pat Cole APRN CNP [address] [place] [address] Nurse Practitioner 01/19/22 Yohana Estes PA-C [address] [place] [address] Assigned PCP 05/08/22 06/22/23 Letha Manzanares MD [address] [place] [address] Ophthalmology 03/25/23 Corby Centeno MD [address] [place] [address]245 Dermatology 03/29/23 Cynthia Dubon MD [address] [place] [address] 113555 Cardiovascular Disease 04/19/23 Letha Manzanares MD [address] [place] [address] [phone] Assigned Surgical Provider 04/23/23 Wilma Saba MD [address] [place], [place] [address] Assigned OBGYN Provider 04/09/23 Jeannette Jean Baptiste NP [address] [place] [address] Assigned PCP 06/23/23 Cynthia Dubon MD 9 [place] [address] Assigned Heart and Vascular Provider 07/01/23 documented as of this encounter
--- OUTSIDE RECORDS SUMMARY | 2023-11-16 11:02 | XMS_ITS | Encounter Summary ---
Author Organization [place] Address [address] [facility] [place] [address] Care Team Providers Care Cotton Acreage Measurer Name Role Phone Bette Shirlene Floyd MD Unavailable Manju Crooks APRN CNM Unavailable [facility] Primary Care Provider Franklyn Chadwick DPM Unavailable [phone] Heidi GunnC Unavailable [phone] Sukumar Villarreal MD Unavailable [phone] Burton Duncan MD Unavailable [phone] Pat Cole APRN SEAMLESS TUBE ROLLER Unavailable [phone] Yohana Estes PA-C Unavailable [phone] Letha Manzanares MD Unavailable [phone] Corby Centeno MD Unavailable [phone] Cynthia Dubon MD Unavailable [phone] Letha Manzanares MD Unavailable [phone] Wilma Saba MD Unavailable [phone] Jeannette Jean Baptiste NP Unavailable Cynthia Dubon MD Unavailable [phone] System, Provider Not In Primary Care Provider Un available Encounter Details Date Type Department Care Team (Late Contact Info) Description 05/06/2021 MyC Medical Advice [facility] Mental Health & Addiction [facility] [address] [place] [address] Dora Odom, SHANK CARRIER Social History Tobacco Use Types Packs/Day Years Used Date Smoking Tobacco: Every Day Cigarettes 0.5 10 Smokeless Tobacco: Never Alcohol Use Standard Drinks/Week Comments Yes 0 (1 standard drink = 0.6 oz pur e alcohol) rare PHQ-2 Answer Date Recorded PHQ-2 Score 2 05/05/2021 Sex and Gender Information Value Date Recorded Sex Assigned at Female 09/29/2020 3:49 PM CDT Gender Identity Female 09/29/2020 3:49 PM CDT Sexual Orientation Straight 09/29/2020 3: 49 PM CDT COVID-19 Exposure Response Date Recorded In the last month, have you been in contact with someone who was confirmed or suspected to have Coronavirus / COVID-19? No / Unsure 05/05/2021 7:55 AM BAG PRESSER documented as of this encounter Plan of Treatment Upcoming Encounters Date Type Department Care Team (Late Contact Info) Description 12/20/2023 10:45 AM CDT Office Visit [facility] All[facility] Clinic [address] [address] Corby Centeno MD [address] [place] [address] [phone] documented as of this encounter Visit Diagnoses Not on filedocumented in this encounter Additional Health Concerns Assessment Noted Time PHQ-9 Depression Total Score: 5 05/06/20 7:33 AM BAG PRESSER documented as of this encounter Care Teams Cotton Acreage Measurer Relationship Specialty Start Date End Date Clinic - [facility] [address] [place], [place] [id number] PCP - General Clinic 10/03/22 07/14/23 System, Provider Not In PCP - General Clinic 07/15/23 Shirlene Amos MD [address] [facility] [place] [address] Dermatology 12/29/15 Manju Crooks APRN CNM Assigned OBGYN Provider 03/21/20 09/19/21 Franklyn Chadwick DPM [address] [facility] [address] [place], [place] [address] Assigned Musculoskeletal Provider 05/18/20 11/13/21 Heidi Gunn PA-C [address] [place] [address] Assigned PCP 03/08/21 05/07/22 Sukumar Villarreal MD [address] [place], [place] 851912 Assigned Musculoskeletal Provider 11/14/21 12/18/21 Burton Duncan MD [address] [place], [place] 705371 Assigned Musculoskeletal Provider 12/19/21 07/21/23 Pat Cole APRN SEAMLESS TUBE ROLLER [address] [place], [place] 00[address] Nurse Practitioner 01/19/22 Yohana Estes PA-C [address] [place], [place] 216320 Assigned PCP 05/08/22 06/22/23 Letha Manzanares MD [address] [place] [address] MD Ophthalmology 03/25/23 Corby Centeno MD [address] [place] [address] 647915 MD Dermatology 03/29/23 Cynthia Dubon MD [address] [place] [address] [phone] Cardiovascular Disease 04/19/23 Letha Manzanares MD [address] [place] [address] Assigned Surgical Provider 04/23/23 Wilma Saba MD [address] [place] [address] Assigned OBGYN Provider 04/09/23 Jeannette Jean Baptiste NP [address] [place] [address] Assigned PCP 06/23/23 Cynthia Dubon MD [address] [place] [address] 968815 Assigned Heart and Vascular Provider 07/01/23 documented as of this encounter
--- OUTSIDE RECORDS SUMMARY | 2023-11-16 11:02 | XMS_ITS | Encounter Summary ---
Author Organization [place] Address [address] [facility] [place] [address] Care Team Providers Care Capital Campaign Fundraiser Name Role Phone BetteShirlene MD Unavailable [facility] Primary Care Provider Heidi Gunn PA-C Unavailable [phone] Burton Duncan MD Unavailable [phone] Pat Cole APRN CABINET BUILDER Unavailable [phone] Yohana Estes-C Unavailable [phone] Letha Manzanares MD Unavailable [phone] Corby Centeno MD Unavailable [phone] Cynthia Dubon MD Unavailable [phone] Letha Manzanares MD Unavailable [phone] Wilma Saba MD Unavailable [phone] Jeannette Jean Baptiste NP Unavailable [phone] Cynthia Dubon MD Unavailable [phone] System, Provider Not In Primary Care Provider Un available Encounter Details Date Type Department Care Team (Late st Contact Info) Description 01/18/2022 MyC Medical Advice [facility] [address] [place] [phone] Bertha Kristi Social History Tobacco Use Types Packs/Day Years Used Date Smoking Tobacco: Every Day Cigarettes 0.5 10 Smokeless Tobacco: Never Alcohol Use Standard Drinks/Week Comments Yes 0 (1 standard drink = 0.6 oz pur e alcohol) rare PHQ-2 Answer Date Recorded PHQ-2 Score 0 11/03/2021 Sex and Gender Information Value Date Recorded Sex Assigned at Female 09/29/2020 3:49 PM CDT Gender Identity Female 09/29/2020 3:49 PM CDT Sexual Orientation Straight 09/29/2020 3: 49 PM CDT COVID-19 Exposure Response Date Recorded In the last 10 days, have yo u been in contact with someone who was confirmed or suspected to have Coronavirus/COVID-19? No / Unsure 01/20/2022 9:19 AM CDT documented as of this encounter Plan of Treatment Upcoming Encounters Date Type Department Care Team (Late st Contact Info) Description 12/20/2023 10:45 AM CDT Office Visit [facility] Allergy Clinic [address] [address] Corby Centeno MD [address] [place] [address] [phone] documented as of this encounter Visit Diagnoses Not on filedocumented in this encounter Additional Health Concerns Assessment Noted Time PHQ-9 Depression Total Score: 5 05/06/20 21 7:33 AM LANDSCAPE LABORER documented as of this encounter Care Teams Capital Campaign Fundraiser Relationship Specialty Start Date End Date Clinic - [facility] [address] [place] [address] PCP - General Clinic 10/03/22 07/14/23 System, Provider Not In PCP - General Clinic 07/15/23 Shirlene Amos MD [address] [facility] [place] [address] Dermatology 12/29/15 Heidi Gunn PA-C [address] [place] [address] Assigned PCP 03/08/21 05/07/22 Burton Duncan MD [address] [place] [address] Assigned Musculoskeletal Provider 12/19/21 07/21/23 Pat Cole APRN CABINET BUILDER [address] [place] [address] 112905 Nurse Practitioner 01/19/22 Yohana Estes PA-C [address] [place] [address] Assigned PCP 05/08/22 06/22/23 Lteha Manzanares MD [address] [place] [address] 372665 Ophthalmology 03/25/23 Corby Centeno MD [address] [place] [address] 955125 Dermatology 03/29/23 Cynthia Dubon MD [address] [place] [address] 686745 Cardiovascular Disease 04/19/23 Letha Manzanares MD [address] [place] [address] 443025 Assigned Surgical Provider 04/23/23 Wilma Saba MD [address] [place] [address] Assigned OBGYN Provider 04/09/23 Jeannette Jean Baptiste NP [address] [address] Assigned PCP 06/23/23 Cynthia Dubon MD [address] [place] [address] Assigned Heart and Vascular Provider 07/01/23 documented as of this encounter
--- OUTSIDE RECORDS SUMMARY | 2023-11-16 11:02 | XMS_ITS | Encounter Summary ---
Author Organization [place] Address [address] [place] [address] Care Team Providers Care Head Girls Golf Coach Name Role Phone BetteShirlene MD Unavailable [facility] Primary Care Provider Heidi Gunn PA-C Unavailable [phone] Burton Duncan MD Unavailable [phone] Pat Cole APRN LIGHT OIL OPERATOR Unavailable [phone] Yohana Estes-C Unavailable [phone] Letha Manzanares MD Unavailable [phone] Corby Centeno MD Unavailable [phone] Cynthia Dubon MD Unavailable Letha Manzanares MD Unavailable [phone] Wilma Saba MD Unavailable [phone] Jeannette Jean Baptiste NP Unavailable [phone] Cynthia Dubon MD Unavailable [phone] System, Provider Not In Primary Care Provider Un available Reason for Visit * Reason Onset Date Comments Patient Request 03/01/2022 Encounter Details Date Type Department Care Team (Leena ayala Contact Info) Description 03/01/[address] [place] [address] Pat Cole, KATHLEEN LIGHT OIL OPERATOR [address] [place] [address] Patient Request Social History Tobacco Use Types Packs/Day Years [...] suspected to have Coronavirus/COVID-19? No / Unsure 02/10/2022 12:44 PM CDT documented as of this encounter Miscellaneous Notes * Telephone Encounter - Winsome Sesay - 03/01/2022 8:24 AM CDT Voice message left on 02/27/2022 at 11:00 AM Reason for Call: Other Detailed comments: Patient called to schedule an appointment to have injections in her spine. Requests to be called back. Phone Number Patient can be reached at: Cell number on file: Telephone Information: Best Time: not indicated Can we leave a detailed message on this number? not indicated Voice message retrieved on 03/01/2022 at 8:00 AM by Winsome Sesay documented in this encounter Plan of Treatment Upcoming Encounters Date Type Department Care Team (Leena ayala Contact Info) Description 12/20/2023 10:45 AM CDT Office Visit [facility] Allergy Clinic [place] [id number] [place] [phone] Corby Centeno MD [address] [place] [address] documented as of this encounter Visit Diagnoses Not on filedocumented in this encounter Additional Health Concerns Assessment Noted Time PHQ-9 Depression Total Score: 5 05/06/20 21 7:33 AM [facility] ATTENDANT documented as of this encounter Care Teams Head Girls Golf Coach Relationship Specialty Start Date End Date Clinic - [facility] [address] [place] [address] PCP - General Clinic 10/03/22 07/14/23 System, Provider Not In PCP - General Clinic 07/15/23 Shirlene Amos MD [address] [place] [address] [place] [address] Dermatology 12/29/15 Heidi Gunn PA-C [address] [place] [address] Assigned PCP 03/08/21 05/07/22 Burton Duncan MD [address] [place] [address] Assigned Musculoskeletal Provider 12/19/21 07/21/23 Pat Cole APRN LIGHT OIL OPERATOR [address] [place] [address] Nurse Practitioner 01/19/22 Yohana Estes PA-C [address] [place] [address] Assigned PCP 05/08/22 06/22/23 Letha Manzanares MD [address] [place] [address] Ophthalmology 03/25/23 Corby Centeno MD [address] [place] [address] MD Dermatology 03/29/23 Cynthia Dubon MD [address] [place] [address] Cardiovascular Disease 04/19/23 Letha Manzanares MD [address] [place] [address] Assigned Surgical Provider 04/23/23 Wilma Saba MD [address] [address] [address] Assigned OBGYN Provider 04/09/23 Jeannette Jean Baptiste NP [address] [place] [address] Assigned PCP 06/23/23 Cynthia Dubon MD [address] [place] [address] Assigned Heart and Vascular Provider 07/01/23 documented as of this encounter
--- OUTSIDE RECORDS SUMMARY | 2023-11-16 11:02 | XMS_ITS | Encounter Summary ---
Author Organization [place] Address [address] [facility] [place] [address] Care Team Providers Care Jewelry Estimator Name Role Phone BetteShirlene MD Unavailable [phone] [facility] Primary Care Provider Franklyn Chadwick DPM Unavailable [phone] Heidi Gunn PA-C Unavailable [phone] Sukumar Villarreal MD Unavailable Burton Duncan MD Unavailable [phone] Pat Cole APRN CHAMFERING MACHINE OPERATOR Unavailable Yohana Estes PA-C Unavailable [phone] Letha Manzanares MD Unavailable [phone] Corby Centeno MD Unavailable [phone] Cynthia Dubon MD Unavailable [phone] Letha Manzanares MD Unavailable [phone] Wilma Saab MD Unavailable [phone] Jeannette Jean Baptiste NP Unavailable Cynthia Dubon MD Unavailable [phone] System, Provider Not In Primary Care Provider Un available Encounter Details Date Type Department Care Team (Late st Contact Info) Description 11/11/2021 MyC Medical Advice [facility] [address] [place] [address] Geraldo Lui MA Social History Tobacco Use Types Packs/Day Years [...] suspected to have Coronavirus/COVID-19? No / Unsure 11/04/2021 6:24 AM CDT documented as of this encounter Plan of Treatment Upcoming Encounters Date Type Department Care Team (Late st Contact Info) Description 12/20/2023 10:45 AM CDT Office Visit [facility] Allergy Clinic [address] [address] Corby Centeno MD [address] [place] [address] documented as of this encounter Visit Diagnoses Not on filedocumented in this encounter Additional Health Concerns Assessment Noted Time PHQ-9 Depression Total Score: 5 05/06/20 21 7:33 AM REGIONAL ENVIRONMENTAL MANAGER documented as of this encounter Care Teams Jewelry Estimator Relationship Specialty Start Date End Date Clinic - [facility] [address] [place], [place] [phone] PCP - General Clinic 10/03/22 07/14/23 System, Provider Not In PCP - General Clinic 07/15/23 Shirlene Amos MD [address] [facility] [address] [place] [phone] Dermatology 12/29/15 Franklyn Chadwick DPM [address] [facility] [place] [address] [place] 2408[address] Assigned Musculoskeletal Provider 05/18/20 11/13/21 Heidi Gunn PA-C [address] [place] [address] Assigned PCP 03/08/21 05/07/22 Sukumar Villarreal MD [address] [place] [address] Assigned Musculoskeletal Provider 11/14/21 12/18/21 Burton Duncan MD [address] [place], [place] 669391 Assigned Musculoskeletal Provider 12/19/21 07/21/23 Pat Cole APRN CNP 909 [place], [place] 797[address] Nurse Practitioner 01/19/22 Yohana Estes PA-C [address] [place], [place] 7[address]190 Assigned PCP 05/08/22 06/22/23 Letha Manzanares MD [address] [place], [place] [address] Ophthalmology 03/25/23 Corby Centeno MD [address] [place], [place] 392725 Dermatology 03/29/23 Cynthia Dubon MD [address] [place] [address] 589525 Cardiovascular Disease 04/19/23 Letha Manzanares MD 6 [place], [place] 5[address]25 Assigned Surgical Provider 04/23/23 Wilma Saba MD [address] [place], [place] [address] Assigned OBGYN Provider 04/09/23 Jeannette Jean Baptiste, MANAGER RISK MANAGEMENT [address] [place] [address] 927045 Assigned PCP 06/23/23 Cynthia Dubon MD [address] [place] [address] 871925 Assigned Heart and Vascular Provider 07/01/23 documented as of this encounter
--- OUTSIDE RECORDS SUMMARY | 2023-11-16 11:02 | XMS_ITS | Encounter Summary ---
Author Organization [place] Address [address] [place] [address] Care Team Providers Care Social Service Agency Director Name Role Phone BetteShirlene MD Unavailable [facility] Primary Care Provider Heidi Gunn PA-C Unavailable [phone] Burton Duncan MD Unavailable [phone] Pat Cole APRN GAS TRANSFER OPERATOR Unavailable [phone] Yohana Estes-C Unavailable [phone] Letha Manzanares MD Unavailable [phone] Corby Centeno MD Unavailable [phone] Cynthia Dubon MD Unavailable [phone] Letha Manzanares MD Unavailable [phone] Wilma Saba MD Unavailable [phone] Jeannette Jean Baptiste NP Unavailable [phone] Cynthia Dubon MD Unavailable [phone] System, Provider Not In Primary Care Provider Un available Encounter Details Date Type Department Care Team (Late st Contact Info) Description 02/15/2022 MyC Medical Advice [facility] [address] [place] [phone] [place] Daily Social History Tobacco Use Types Packs/Day Years [...] Description 12/20/2023 10:45 AM CDT Office Visit [facility] Allergy Clinic [address] [address] Corby Centeno MD [address] [place] [address] 216805 documented as of this encounter Visit Diagnoses Not on filedocumented in this encounter Additional Health Concerns Assessment Noted Time PHQ-9 Depression Total Score: 5 05/06/20 21 7:33 AM CURB MACHINE OPERATOR documented as of this encounter Care Teams Social Service Agency Director Relationship Specialty Start Date End Date Clinic - [facility] [address] [place] [address] PCP - General Clinic 10/03/22 07/14/23 System, Provider Not In PCP - General Clinic 07/15/23 Shirlene Amos MD [address] [place] [address] [place] [address] Dermatology 12/29/15 Heidi Gunn PA-C [address] [place] [address] Assigned PCP 03/08/21 05/07/22 Burton Duncan MD [address] [place] [address] Assigned Musculoskeletal Provider 12/19/21 07/21/23 Pat Cole APRN CNP [address] [place] [address] [id number] Nurse Practitioner 01/19/22 Yohana Estes PA-C [address] [place] [address] Assigned PCP 05/08/22 06/22/23 Letha Manzanares MD [address] [place] [address] [phone] Ophthalmology 03/25/23 Corby Centeno MD [address] [place] [address] 102505 Dermatology 03/29/23 Cynthia Dubon MD [address] [place] [address] 931115 Cardiovascular Disease 04/19/23 Letha Manzanares MD [address] [place] [address] 847865 Assigned Surgical Provider 04/23/23 Wilma Saba MD [address] [place] [address] Assigned OBGYN Provider 04/09/23 Jeannette Jean Baptiste NP [address] [address] Assigned PCP 06/23/23 Cynthia Dubon MD [address] [place] [address] Assigned Heart and Vascular Provider 07/01/23 documented as of this encounter
--- OUTSIDE RECORDS SUMMARY | 2023-11-16 11:02 | XMS_ITS | Encounter Summary ---
Author Organization [facility] Address [address] [facility] [place] [address] Care Team Providers Care Drafter Geophysical Name Role Phone BetteShirlene MD Unavailable [facility] Primary Care Provider Heidi Gunn PA-C Unavailable [phone] Burton Duncan MD Unavailable [phone] Pat Cole APRN MANAGER VOICE Unavailable [phone] Yohana Estes-C Unavailable [phone] Letha Manzanares MD Unavailable [phone] Corby Centeno MD Unavailable [phone] Cynthia Dubon MD Unavailable [phone] Letha Manzanares MD Unavailable Wilma Saba MD Unavailable [phone] Jeannette Jean Baptiste NP Unavailable [phone] Cynthia Dubon MD Unavailable [phone] System, Provider Not In Primary Care Provider Un available Reason for Visit * Reason Onset Date Comments Procedure 03/01/2022 bilateral lumbar 3,4,5 medial branch nerve blocks #1 with plan to proceed to RFA Encounter Details Date Type Department Care Team (Late st Contact Info) Description 03/01[facility]2022 [facility] [address] [facility] [place] [phone] Pat Cole APRN [facility] [address] [place] [address] Procedure ( bilateral lumbar 3,4,5 medial branch nerve blocks #1 with plan to proceed to RFA ) Social History Tobacco Use Types Packs/Day Years [...] encounter Miscellaneous Notes * Telephone Encounter - Radha Clark - 03/01/2022 1:17 PM CDT Screening questions for MBB Injections: Injection to be done at which interventional clinic site? [facility] [place] [facility] Procedure ordered by Dr. Rice Procedure ordered? Lumbar Medial Branch Block What insurance would patient like us to bill for this procedure? [employer] ?? MEDICA: REQUIRES A PA FOR BOTH MBB ?? Worker's comp- Any injection DO NOT SCHEDULE and route to Ritu Grimm. ?? [employer] insurance - If scheduling an SI joint injection DO NOT SCHEDULE and route to Val Mcnulty. ?? MBBs must be scheduled with elapsed time interval of at least 2 weeks and not more than 6 monthsbetween the First MBB and the Second MBB for insurance purposes ?? [employer] - Any injection besides hip/shoulder/knee joint DO NOT SCHEDULE and route to Val Mcnulty.She will obtain PA and call pt back to schedule procedure or notify pt of denial. ?? [employer]- PA required for all MBB's ?? BCBS- ALL need to be routed to Val for review if a PA is needed ?? IF SCHEDULING IN [place] AND NEEDS A PA, IT IS OKAY TO SCHEDULE. [place] HANDLES THEIR OWN PA'S AFTER THE PATIENT IS SCHEDULED. PLEASE SCHEDULE AT LEAST 1 WEEK OUT SO A PA CAN BE OBTAINED. ?? Genicular Nerve blocks- ALL insurances except for- [employer]erred [employer], Medicare (straight not supplement) and [employer]. Need to be reviewed by Val before scheduling. Any chance of ? NO If YES, do NOT schedule and route to CHUCKIE gordon - Dr. Beck route to Yelena Begum and PM&R Nurse [[id number]] Is an hand frame surgical elastic knitter needed? No Patient has a drive home? (mandatory) Yes Is patient taking any blood thinners (plavix, coumadin, jantoven, warfarin, heparin, pradaxa or dabigatran )? No If hold needed, do NOT schedule, route to CHUCKIE gordon/ Dr. Beck's Team Is patient taking any aspirin products? No ?? If more than 325mg/day, OK to schedule; Instruct pt to decrease to less than 325 mg for 7 days AND route to CHUCKIE gordon/ Dr. Beck's Team ?? For CERVICAL procedures, hold all aspirin products for 6 days. ?? Tell pt that if aspirin product is not held for 6 days, the procedure WILL BE cancelled. Does the patient have a bleeding or clotting disorder? No ?? If YES, okay to schedule AND route to CHUCKIE gordon/ Dr. Beck's Team ?? For any patients with platelet count <100, must be forwarded to provider Is patient diabetic? NO If YES, have them bring their glucometer. Does patient have an active infection or treated for one within the past week? No Is patient currently taking any antibiotics? No ?? For patients on chronic, preventative, or prophylactic antibiotics, procedures may be scheduled. ?? For patients on antibiotics for active or recent infection:antibiotic course must have been completed for 4 days Is patient currently taking any steroid medications? (i.e. Prednisone, Medrol) No ?? For patients on steroid medications, course must have been completed for 4 days Is patient actively being treated for cancer or immunocompromised? No If YES, do NOT schedule and route to RN/ Dr. Beck's Team Are you able to get on and off an exam table with minimal or no assistance? Yes If NO, do NOT schedule and route to RN/ Dr. Beck's Team Are you able to roll over and lay on your stomach with minimal or no assistance? Yes If NO, do NOT schedule and route to RN/ Dr. Beck's Team Any allergies to contrast dye, iodine, shellfish, or numbing and steroid medications? No (If so, inform nursing and note in scheduling comments.) Allergies: Mold, Florien [nuts], Claritin [loratadine], Flexeril [cyclobenzaprine], Imitrex [sumatriptan], and Morphine Does patient have an MRI/CT? YES: 2020 Check Procedure Scheduling Grid to see if required. ?? Was the MRI done within the last 3 years? Yes ?? If yes, where was the MRI done i.e.[facility], [facility], [facility], [facility] etc? [facility] ?? If no, do not schedule and route to nursing/ Dr. eBck's Team ?? If MRI was not done at [facility], [facility] or [facility] do NOT schedule and route to nursing. ?? If pt has an imaging disc, the injection MAY be scheduled but pt has to bring disc to appt. ?? If they show up without the disc the injection cannot be done Medial Branch Block Pre-Procedure Instructions ?? It is okay to take long acting pain medications (if you are on them) the day of the procedure but try not to take any short acting medications unless absolutely necessary. YES: Long acting meds would include: Gabapentin (Neurontin), MS Contin, Oxycontin Short acting meds would include: Percocet, Oxycodone, Vicodin, Ibuprofen ?? The day of the procedure, you should try to do things that provoke your pain, since the injection is being done to see if it will relieve your pain . YES: ?? If your pain level is a 4 out of 10 or less on the day of the procedu re, please call [phone] to reschedule. YES: Reminders: ?? If you are started on any steroids or antibiotics between now and your appointment, you must contact us because it may affect our ability to perform your procedure ?? Instructed pt to arrive 30 minutes early for IV start if required. (Check Procedure Scheduling Grid) INot Applicable ?? If this is for a cervical MBB aspirin needs to be held for 6 days. Not Applicable ?? Do not schedule procedures requiring IV placement in the first appointment of the day or first appointment after lunch. Do NOT schedule at 0745, 0815 or 1245. ?? For patients 85 or older we recommend having an adult stay w/ them for the remainder of the day. Does the patient have any questions? documented in this encounter Plan of Treatment Upcoming Encounters Date Type Department Care Team (Late st Contact Info) Description 12/20/2023 10:45 AM CDT Office Visit [facility] [address] [phone] Corby Centeno MD [address] [place] [address] [phone] documented as of this encounter Visit Diagnoses Not on filedocumented in this encounter Additional Health Concerns Assessment Noted Time PHQ-9 Depression Total Score: 5 05/06/20 21 7:33 AM SUPERINTENDENT DISTRIBUTION documented as of this encounter Care Teams Drafter Geophysical Relationship Specialty Start Date End Date Clinic - [facility] [address] [place] [address] PCP - General Clinic 10/03/22 07/14/23 System, Provider Not In PCP - General Clinic 07/15/23 Shirlene Amos MD [address] [facility] [place] [address] Dermatology 12/29/15 Heidi Gunn, PAGuillermoC [address] [place] [address] Assigned PCP 03/08/21 05/07/22 Burton Duncan MD [address] [place] [address] Assigned Musculoskeletal Provider 12/19/21 07/21/23 Pat Cole APRN MANAGER VOICE [address] [place] [address] [phone] Nurse Practitioner 01/19/22 Yohana Estes PA-C [address] [place] [address] Assigned PCP 05/08/22 06/22/23 Letha Manzanares MD [address] [place] [address] [phone] Ophthalmology 03/25/23 Corby Centeno MD [address] [place] [address] 215235 Dermatology 03/29/23 Cynthia Dubon MD [address] [place] [address] 405315 Cardiovascular Disease 04/19/23 Letha Manzanares MD [address] [place] [address] [phone] Assigned Surgical Provider 04/23/23 Wilma aSba MD [address] [phone] Assigned OBGYN Provider 04/09/23 Jeannette Jean Baptiste NP [address] [address] Assigned PCP 06/23/23 Cynthia Dubon MD [address] [place] [address] Assigned Heart and Vascular Provider 07/01/23 documented as of this encounter
--- OUTSIDE RECORDS SUMMARY | 2023-11-16 11:02 | XMS_ITS | Encounter Summary ---
Author Organization [place] Address [address] [facility] [place] [address] Care Team Providers Care Senior Mainframe Developer Name Role Phone ZohaibyanelisShirlene MD Unavailable [phone] [facility] Primary Care Provider Burton Duncan MD Unavailable [phone] Pat Cole APRN ENTRY DRIVER OPERATOR Unavailable [phone] Yohana Estes PA-C Unavailable [phone] Letha Manzanares MD Unavailable [phone] Corby Centeno MD Unavailable [phone] Cynthia Dubon MD Unavailable [phone] Letha Manzanares MD Unavailable [phone] Wilma Saba MD Unavailable [phone] Jeannette Jean Baptiste NP Unavailable [phone] Cynthia Dubon MD Unavailable [phone] System, Provider Not In Primary Care Provider Un available Encounter Details Date Type Department Care Team (Late st Contact Info) Description 04/29/2023 MyC Medical Advice [facility] [address] [place] [facility] [address] [place] [address] Luz Alva CMA Social History Tobacco Use Types Packs/Day [...] in an abandoned building, in an overnight usp, or couch-surfing.) Yes 02/22/2023 Are you worried [...] Description 12/20/2023 10:45 AM CDT Office Visit [facility] [address] [phone] Corby Centeno MD [address] [place] [address] [phone] documented as of this encounter Visit Diagnoses Not on filedocumented in this encounter Additional Health Concerns Assessment Noted Time PHQ-9 Depression Total Score: 1 04/07/20 23 7:51 AM MULTI PURPOSE MACHINE OPERATOR documented as of this encounter Care Teams Senior Mainframe Developer Relationship Specialty Start Date End Date Clinic - [facility] [address] [place] [address] PCP - General Clinic 10/03/22 07/14/23 System, Provider Not In PCP - General Clinic 07/15/23 Shirlene Amos MD [address] [facility] [place] [address] Dermatology 12/29/15 Burton Duncan MD [address] [place], [place] 189441 Assigned Musculoskeletal Provider 12/19/21 07/21/23 Pat Cole APRN CNP [address] [place] [address] [phone] Nurse Practitioner 01/19/22 Yohana Estes PA-C [address] [place] [address] Assigned PCP 05/08/22 06/22/23 Letha Manzanares MD [address] [place] [address] Ophthalmology 03/25/23 Corby Centeno MD [address] [place] [address] MD Dermatology 03/29/23 Cynthia Dubon MD [address] [place] [address] Cardiovascular Disease 04/19/23 Letha Manzanares MD [address] [place] [address] Assigned Surgical Provider 04/23/23 Wilma Saba MD [address] [place] [address] Assigned OBGYN Provider 04/09/23 Jeannette Jean Baptiste NP [address] [place] [address] 349855 Assigned PCP 06/23/23 Cynthia Dubon MD [address] [place] [address] [phone] Assigned Heart and Vascular Provider 07/01/23 documented as of this encounter
--- OUTSIDE RECORDS SUMMARY | 2023-11-16 11:02 | XMS_ITS | Encounter Summary ---
Author Organization [place] Address [address] [facility] [place] [address] Care Team Providers Care Cad Designer Name Role Phone BetteShirlene MD Unavailable [phone] Pat Cole APRN EMPLOYEE HEALTH RN Unavailable [phone] Letha Manzanares MD Unavailable [phone] Corby Centeno MD Unavailable [phone] Cynthia Dubon MD Unavailable [phone] Letha Manzanares MD Unavailable Wilma Saba MD Unavailable [phone] Jeannette Jean Baptiste NP Unavailable [phone] Cynthia Dubon MD Unavailable [phone] System, Provider Not In Primary Care Provider Un available Reason for Visit * Reason Onset Date Comments Appointment 10/14/2023 Allergy new pt a ppt Encounter Details Date Type Department Care Team (Late st Contact Info) Description 10/14/2023 Telephone [facility] [place] [phone] [facility] [address] [place] [address] Corby Centeno MD [address] [place] [address] Appointment (Allergy new pt appt) Social History Tobacco Use Types Packs/Day Years [...] Answer Date Recorded Do you have housing? (Franciscoin g is defined as stable permanent housing and does not include staying ouside in a car, in a tent, in an abandoned building, in an overnight chcf, or couch-surfing.) Yes 02/22/2023 Are you worried [...] encounter Miscellaneous Notes * Telephone Encounter - Julienne Eugene - 10/14/2023 10:47 AM CDT Called and spoke with pt. Confirmed appt details. Julienne Eugene, Procedure [facility] Director 10/14/2023 10:48 AM documented in this encounter Plan of Treatment Upcoming Encounters Date Type Department Care Team (Late st Contact Info) Description 12/20/2023 10:45 AM CDT Office Visit [facility] [address] [phone] Corby Centeno MD [address] [place] [address] [phone] documented as of this encounter Visit Diagnoses Not on filedocumented in this encounter Additional Health Concerns Assessment Noted Time PHQ-9 Depression Total Score: 1 04/07/20 23 7:51 AM DATA CLERK documented as of this encounter Care Teams Cad Designer Relationship Specialty Start Date End Date System, Provider Not In PCP - General Clinic 07/15/23 Shirlene Amos MD [address] [place] [address] [place] [address] Dermatology 12/29/15 Pat Cole APRN EMPLOYEE HEALTH RN [address] [place] [address] [phone] Nurse Practitioner 01/19/22 Letha Manzanares MD [address] [place] [address] [phone] Ophthalmology 03/25/23 Corby Centeno MD [address] [place] [address] 535155 Dermatology 03/29/23 Cynthia Dubon MD [address] [place] [address] [phone] Cardiovascular Disease 04/19/23 Letha Manzanares MD [address] [place] [address] Assigned Surgical Provider 04/23/23 Wilma Saba MD [address] [place] [address] [place], [place] 806214 Assigned OBGYN Provider 04/09/23 Jeannette Jean Baptiste NP [address] [place] [address] [phone] Assigned PCP 06/23/23 Cynthia Dubon MD [address] [place], [place] [phone] Assigned Heart and Vascular Provider 07/01/23 documented as of this encounter
--- OUTSIDE RECORDS SUMMARY | 2023-11-16 11:02 | XMS_ITS | Encounter Summary ---
Author Organization [place] Address [address] [facility] [address] Care Team Providers Care Wax Machine Operator Name Role Phone ZohaibyanelisShirlene MD Unavailable [phone] Pat Cole APRN PLASTIC PARTS FABRICATOR Unavailable [phone] Letha Manzanares MD Unavailable [phone] Corby Centeno MD Unavailable [phone] Cynthia Dubon MD Unavailable Letha Manzanares MD Unavailable [phone] Wilma Saba MD Unavailable [phone] Jeannette Jean Baptiste NP Unavailable [phone] Cynthia Dubon MD Unavailable [phone] System, Provider Not In Primary Care Provider Un available Reason for Referral * Medication Prior Authorization - Closed Specialty Diagnoses / Procedures Referred By Contmoises t Referred To Contact Diagnoses Mild intermittent asthma with acute exacerbation Non-seasonal allergic rhinitis due to pollen Angioedema, subsequent encounter Nut allergy Atopy Corby Centeno MD [address] [place] [address] Referral ID Status Reason Start Date Expiration Date Visits Re quested Visits Authorized [id number] Closed 1 1 Reason for Visit * Reason Comments Allergy Consult Per pt highly allerg ic to molds, completed prick/blood testing, approx 4 years ago fall, window open overnight, woke up with tongue swelling/perioral numbness/swelling, treated with epipen at ED, resolved, continued happening, gargling with liquid benadryl helps, has benadryl as emergency medicine. Saw regulatory affairs spec, reyna but caused palpations, didn't help symptoms. Allergic to decongestants per pt. Worst late fall early spring, also suspects trees, unable to go outside/hiking/being outside Encounter Details Date Type Department Care Team ( Contact Info) Description 10/18/2023 8:00 AM CDT Office Visit [facility] [address] [id number] Corby Centeno MD [address] [place] [id number] Mild intermittent asthma with acute exacerbation (Primary Dx); Non-seasonal allergic rhinitis due to pollen; Postnasal drip; Angioedema, subsequent encounter; Nut allergy; Atopy Social History Tobacco Use Types Packs/Day Years [...] in an abandoned building, in an overnight penitentiary, or couch-surfing.) Yes 02/22/2023 Are you worried [...] as of this encounter Progress Notes * Corby Centeno MD - 10/18/2023 8:00 AM CDT Images from the original note were not included. [facility] Dermato-allergology Note Office visit Encounter Date: October 18, 2023 CC: Allergy Consult (Per pt highly allergic to molds, completed prick/blood testing, approx 4 yearsago fall, window open overnight, woke up with tongue swelling/perioral numbness/swelling, treated with epipen at ED, resolved, continued happening, gargling with liquid benadryl helps, has benadryl as emergency medicine. Saw regulatory affairs specreyna but caused palpations, didn't help symptoms. Allergic to decongestants per pt. Worst late fall early spring, also suspects trees, unable to go outside/hiking/being outside) HPI: (October 18, 2023) Ms. Natalie Mcnulty is a(n) 43 year old female who presents today as new patient for allergy consultation - Self-referred for allergy consult - She feels she is highly allergic to molds - Episodes only happen in late fall/early spring, goes outside, tongue starts to swell and has sudden SOB - First episode ~4 years ago - Window was open overnight; woke up with tongue swelling and periorbital swelling/numbness - Went to ED; administered EpiPen and given multiple refills - Has had recurrent ED visits where EpiPen was administered - Certain trees, such as pine, also cause symptoms - Current tx is liquid Benadryl - Gets heart palpitation with Reyna; hives with Claritin and decongestant - Stuffy nose and itchy/watery eyes throughout entire summer, but not severe - H/O of asthma, which is also worse in summer - Uses albuterol inhaler multiple times a day during summer; otherwise does not have a daily inhaler - Allergy prick and blood tests done years ago; reports prick tests were negative, but - Tongue swelling with almonds - She moisturizes skin, but it continues to be dry - Lives in a sober living complex; 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 was performed. - Diffusely very xerotic skin of hands and arms. - Eczematous dry skin on bilateral lower extremities. - Hyperlinearity of palms Past Medical History: Patient Active Problem List Diagnosis Chronic constipation Anxiety and depression Cervical high risk HPV (human papillomavirus) test positive Gastroesophageal reflux disease without esophagitis Intermittent asthma, uncomplicated Thyroid nodule Back muscle spasm Closed displaced fracture of medial malleolus of right tibia, initial encounter Pain in joint, ankle and foot, right Neuropathic pain Past Medical History: Diagnosis Date Abnormal Pap smear 2000 had procedure to freeze abnormal cells ADD (attention deficit disorder) Anxiety Asthma Cervical high risk HPV (human papillomavirus) test positive 2019 Endometriosis told slight Thyroid nodule 11/24/2015 Uncomplicated asthma Allergies: Allergies Allergen Reactions Mold Anaphylaxis [place] [Nuts] Hives Desloratadine-Pseudoephed Er Unknown Flexeril [Cyclobenzaprine] Oxycodone-Acetaminophen Itching Hydromorphone Hives and Rash Occurred after IV dose 04/22/09 Loratadine Hives and Rash Unsure whether it was the Claritin or psuedoephedrine Morphine Palpitations Sumatriptan Rash Other Reaction(s): Other - Describe In Comment Field I feel like I'm going to crawl out of my skin Medications: Current Outpatient Medications Medication Sig Dispense Refill albuterol (PROAIR HFA/PROVENTIL HFA/VENTOLIN HFA) 108 (90 Base) MCG/ACT inhaler Inhale 2 puffs intothe lungs every 4 hours as needed for shortness of breath or wheezing 18 g 0 atomoxetine (STRATTERA) 40 MG capsule budesonide-formoterol (SYMBICORT) 160-4.5 MCG/ACT Inhaler Inhale 2 puffs into the lungs 2 times daily 10.2 g 3 cloNIDine (CATAPRES) 0.1 MG tablet Take 0.1 mg by mouth 2 times daily EPINEPHrine (ANY BX GENERIC EQUIV) 0.3 MG/0.3ML injection 2-pack Inject 0.3 mLs (0.3 mg) into the muscle once as needed for anaphylaxis 2 each 0 fluticasone-salmeterol (ADVAIR) 100-50 MCG/ACT inhaler Inhale 1 puff into the lungs every 12 hours 60 each 3 gabapentin (NEURONTIN) 300 MG capsule Start 300 mg at bedtime x 2 days, then increase to 300 mg BIDx 3 days, then 300 mg TID x 3 days. (Patient taking differently: 300 mg 3 times daily .) 90 capsule1 hydrochlorothiazide (HYDRODIURIL) 12.5 MG tablet Take 1 tablet (12.5 mg) by mouth daily 30 tablet 1 hydrocortisone (CORTAID) 1 % external ointment Apply sparingly to affected area three times daily for 14 days. 30 g 0 levocetirizine (XYZAL) 5 MG tablet Take 1 tablet (5 mg) by mouth every morning 30 tablet 2 Lidocaine (LIDOCARE) 4 % Patch Place 1 patch onto the skin every 24 hours To prevent lidocaine toxicity, patient should be patch free for 12 hrs daily. Melatonin 10 MG TABS tablet Take 10 mg by mouth nightly as needed for sleep methimazole (TAPAZOLE) 5 MG tablet Take 15 mg by mouth daily Multiple Vitamin (TAB-A-NIKKI) TABS omeprazole (PRILOSEC) [address] capsule Take 1 capsule (40 mg) by mouth daily Take 30-60 minutes before a meal. 30 capsule 1 polyethylene glycol (MIRALAX) 17 GM/Dose powder Take 17 g (1 capful) by mouth 2 times daily 850 g 4 prazosin (MINIPRESS) 1 MG capsule prazosin (MINIPRESS) 2 MG capsule Take 2 mg by mouth At Bedtime SENEXON-S 8.6-50 MG tablet topiramate (TOPAMAX) 25 MG tablet TAKE ONE TABLET (25 MG) BY MOUTH DAILY. traZODone (DESYREL) 50 MG tablet Take 50 mg by mouth At Bedtime acetaminophen (TYLENOL) 500 MG tablet Take 1-2 tablets (500-1,000 mg) by mouth every 6 hours as needed for mild pain amoxicillin (AMOXIL) 500 MG capsule Take 1 capsule (500 mg) by mouth 3 times daily (Patient not taking: Reported on 06/20/2023) 30 capsule 0 Heating Pads (HEATING PAD MOIST/DRY) PADS 1 Pad 2 times daily as needed (rib pain after coughing) 1box (Patient not taking: Reported on 06/20/2023) 1 each 1 ibuprofen (ADVIL/MOTRIN) 800 MG tablet Take 1 tablet (800 mg) by mouth every 8 hours as needed for moderate pain propranolol (INDERAL) 20 MG tablet TAKE ONE TABLET (20 MG) BY MOUTH TWICE A DAY. (Patient not taking: Reported on 10/18/2023) vitamin D3 (CHOLECALCIFEROL) 50 mcg (2000 units) tablet No current facility-administered medications for this visit. Social History: The patient works at [employer]. Patient has the following hobbies or non-occupational exposure: hiking, walks in the park. Cannot do hobbies because of her symptoms. Family History: Family History Problem Relation Age of Onset Heart Failure Mother Asthma Mother Depression Mother Gastrointestinal Disease Mother acid reflux Heart Failure Father Cancer Father Cancer Maternal Grandmother Cancer Maternal Grandfather Hypertension Sister Breast Cancer Other C.A.D. No family hx of Diabetes No family hx of Cerebrovascular Disease No family hx of Cancer - colorectal No family hx of Prostate Cancer No family hx of Melanoma No family hx of Skin Cancer No family hx of Previous Labs, Allergy Tests, Dermatopathology, Imagin03/23/23 Jeannette Jean Baptiste NP (FP) FROM [facility]: Patient presents with: Asthma: Gotten worse Allergies: Possible referral Natalie is a resident of [facility], she is currently in their short term program. 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 This is her second time in treatment, her drug ofchoice is methamphetamines. She denies ever using IV drugs. Natalie has a history of allergic reactions, she is not sure what they are from. She has hives and pruritus. She occasionally notices some asthma-like symptoms and uses her rescue inhaler for that. She has used Zyrtec and Claritin and gets some relief from those but they make her tired. She is concerned that she may have a mold allergy and she states that the space where she is living now is old andmay be exacerbating her mold issues. Natalie has sporadic episodes of chest pain that comes and goes. She describes it as a short/quick pain that is midsternal. She does not have shortness of breath or diaphoresis associated with it. Shestopped smoking cigarettes on January 042022, she feels that she has felt the same with these symptoms since then. Other health issues she has: FROM A&P: Moderate persistent asthma, unspecified whether complicated Plan: fluticasone-salmeterol (ADVAIR) 100-50 MCG/ACT inhaler 01/13/23 Dr. Elan Jeffrey ([facility] ED) FROM [facility]: Female with a history of environmental allergies who presents the emergency department for evaluation of an allergic reaction. Patient states that she was in her skilled nursing cell and was laying down and wascold and was covered with a blanket and shortly thereafter started feeling tingling in her lips andfolic her tongue was swelling. She states that she had some associated difficulty breathing as wellas development of a rash. They administered her EpiPen and she did have improvement. She states that she still does have hives over her chest and some tingling in her lips but feels like her difficulty breathing and tongue swelling is improved. She did not receive any Benadryl. She was here about aweek ago for similar and believes that it is mold that she has been exposed to as she has significant allergic reaction to mold. She denies any other new environmental exposures or new substances used. Currently, she denies any shortness of breath, nausea, vomiting, diarrhea, chest pain, difficultyswallowing. She has no other complaints at this time. Interventions: All Medication Administration through 01/13/20230 Date/Time Order Dose Route Action 01/13/20232020 CDT dexAMETHasone 10 mg injection (DECADRON) 10 mg Intravenous Given 01/13/20232020 CDT diphenhydrAMINE 50 mg injection (BENADRYL) 50 mg Intravenous Given Reassessments: On final reassessment, the patient was resting comfortably in bed with no wheezing, edema Social Determinants of Health affecting care None and Legal Problems/Incarceration as it appears something in her cell is triggering her allergic reactions FROM A&P: Allergic reaction, initial encounter The patient had received epinephrine prior to coming to the hospital and therefore was not given immediately. She was given 50 mg of Benadryl here in the emergency department as well as 10 mg of Decadron. Here in the emergency department she stated that she started to have some tingling around her lips again around 20 minutes after receiving the Benadryl and I reevaluated her and she had no swelling or difficulty breathing or wheezing or posterior oropharyngeal edema. She was observed in the emergency department for a total of 4 hours and had no recurrence of her allergic/anaphylactic reaction. I discussed with her that she can finish her prednisone as prescribed and return to the emergencydepartment for any new or worsening of symptoms and if this happens again to again deliver epinephrine and come to the emergency department. She was comfortable with this plan all questions were answered to satisfaction. 01/08/23 Dr. Demetrio Lugo ([facility]) FROM [facility]: Presents to the ED for evaluation of suspected allergic reaction. She is in skilled nursing currently and is concerned that there is mold in her skilled nursing cell. She states that in the past she has had skin changes when exposed to mold. She denies shortness of breath, cough, chest pain, lightheadedness or loss of consciousness. She received 2 doses of epinephrine in skilled nursing and is presenting with some palpitations and nervousness. She has never been hospitalized for allergic reactions and has never been intubated.She has no other recent exposures to known allergens including perfumes, soaps or animals. She has recently been wearing new clothes in the form of her skilled nursing uniform. She has no other issues to reportat present. Laboratory/EKG results: Results for orders placed or performed during the hospital encounter of 01/08/23 BASIC METABOLIC PANEL Result Value Ref Range Status SODIUM 140 136 - 145 mmol/L Final POTASSIUM 3.0 (L) 3.5 - 5.1 mmol/L Final CHLORIDE 107 98 - 107 mmol/L Final CO2,TOTAL 22 22 - 29 mmol/L Final ANION GAP 11 5 - 18 Final GLUCOSE 162 (H) 70 - 99 mg/dL Final CALCIUM 8.2 (L) 8.6 - 10.0 mg/dL Final BUN 7 6 - 20 mg/dL Final CREATININE 0.70 0.50 - 0.90 mg/dL Final BUN/CREAT RATIO 10 10 - 20 Final eGFR >90 >90 mL/min/1.73m2 Final CBC WITH AUTO DIFFERENTIAL Result Value Ref Range Status WHITE BLOOD COUNT 11.1 (H) 4.5 - 11.0 thou/cu mm Final RED BLOOD COUNT 4.21 4.00 - 5.20 mil/cu mm Final HEMOGLOBIN 12.0 12.0 - 16.0 g/dL Final HEMATOCRIT 35.7 33.0 - 51.0 % Final MCV 85 80 - 100 fL Final MCH 28.5 26.0 - 34.0 pg Final MCHC 33.6 32.0 - 36.0 g/dL Final RDW 11.8 11.5 - 15.5 % Final PLATELET COUNT 322 140 - 440 thou/cu mm Final MPV 9.8 6.5 - 11.0 fL Final NRBC 0.0 % Final ABS NRBC 0.0 thou /cu mm Final % NEUT 41.3 % Final % LYMPH 43.7 % Final % MONO 8.8 % Final % EOS 5.6 % Final % BASO 0.3 % Final % IMMATURE GRAN (METAS,MYELOS,PROS) 0.3 % Final ABSOLUTE NEUTROPHILS 4.6 1.7 - 7.0 thou/cu mm Final ABSOLUTE LYMPHOCYTES 4.9 (H) 0.9 - 2.9 thou/cu mm Final ABSOLUTE MONOCYTES 1.0 (H) <0.9 thou/cu mm Final ABSOLUTE EOSINOPHILS 0.6 (H) <0.5 thou/cu mm Final ABSOLUTE BASOPHILS 0.0 <0.3 thou/cu mm Final ABSOLUTE IMMATURE GRANULOCYTES(METAS,MYELOS,PROS) 0.0 <0.3 thou/cu mm Final EKG 12 LEAD UNIT PERFORMED Result Value Ref Range Status Interpretation Preliminary Sinus rhythm with Premature supraventricular complexes Possible Left atrial enlargement Borderline ECG When compared with ECG of 02-OCT-2022 01:52, Premature supraventricular complexes are now Present ST no longer elevated in Lateral leads Interventions: All Medication Administration through 01/09/2023 1555 Date/Time Order Dose Route Action 01/08/2023 1719 CDT famotidine 20 mg injection (PEPCID) 20 mg Intravenous Given 01/08/2023 1719 CDT methylPREDNISolone sod suc pf (SOLU-MEDROL) 125 mg/2 mL injection 125 mg 125 mgIntravenous Given 01/08/2023 1715 CDT NaCl 0.9% 1000 mL IV solution 1,000 mL 1,000 mL Intravenous New Bag 01/08/2023 1900 CDT NaCl 0.9% 1000 mL IV solution 1,000 mL 0 mL Intravenous Stopped 01/08/2023 1834 CDT potassium chloride (KLOR-CON) extended-release tablet (part/cryst) 40 mEq 40 mEq Oral Given Independent Interpretation (X-rays, CTs, rhythm strip): ECG was independently reviewed and is without evidence of ischemic pattern, dangerous interval changes or new dysrhythmia. FROM A&P: Allergic reaction, initial encounter Female with history of allergies presenting with urticarial rash over her abdomen just beneath her eyes. There is no evidence of eye involvement itself and she has no evidence whatsoever to suggest anaphylactic reaction although she did receive epinephrine in skilled nursing. She is awake and alert and has noabdominal pain or tenderness. Her vital signs are notable for mild tachycardia without evidence of shock. Her basic labs were without evidence of significant hematologic or metabolic derangement. HerECG is without evidence of ischemic changes or other dysrhythmia. She was given standard cares and will be observed for 4 hours. She was reassessed multiple times and continued to steadily improve with no evidence of exam, symptoms or vital signs to suggest shock or bimodal reaction. After 3-1/2 hours, her care was signed out to my partner with plan in place to observe for an additional half hourand, if she continues to improve steadily can be discharged back to skilled nursing at that time with the below delineated outpatient medications. diphenhydrAMINE (BENADRYL) 25 mg tablet EPINEPHrine (EPIPEN) 0.3 mg/0.3 mL auto-injector 05/04/16 Dr. Richardson Carranza (derm) FROM [facility]: Presents for an evaluation of dry skin on her hands and an allergic reaction to mold resulting in hives. Today the patient reports that the skin on her hands tend to crack and are currently swollen as well as very dry skin on her legs, shoulders, and elbows. She also reports that her allergies havebeen very bad this year. She states that she is also allergic to anything with a fragrance. 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 She denies having eczema as a baby. She does have asthma and seasonal allergies.She also notes that her skin is worse in the winter and that her skin is pruritic. She also reportsthat she will randomly get hives on her skin and become very hot in temperature which are bright red bumps and located on the arms. FROM A&P: 1. Atopic dermatitis - Start triamcinolone 0.1% ointment - apply topically to body sites other than hands. Avoid face, underarms, or groin. - Discussion of possible irritants and recommend wearing gloves during her cleaning job - Recommend a moisturizer throughout the day - Recommend bathing/showering every single day, pat dry and immediately apply Vanicream. - Start clobetasol 0.05% ointment - apply at night to the hands and wear white cotton gloves - Discussion that the mold allergy is not directly associated with the pruritic, dry skin Follow-up in 1 month, earlier for new or changing lesions. 04/05/16 Dr. Bharath Conti ([facility]) FROM [facility]: Relates that she developed itchy patches on her skin earlier today and became very anxious that shewas having an allergic reaction. Natalie took several doses of [id number] diphenhydramine. The itching and rash have subsided but she remains very anxious. Anxiety aggravates this problem. Diphenhydramine alleviates this problem. Diphenhydramine was tried good results. FROM A&P: Itching Anxiety reation Female with itching, throat fullness, and marked anxiety thought to represent a mild allergic reaction compounded by anxiety, without evidence of anaphylaxis. Symptoms improved in the ED with treatments as above. Exam reassuring. Outpatient treatment and clinic follow-up are indicated. Advised to resume current medications, follow-up with Frederick Chamorro MD and to return the Emergency Department if her symptoms worsen. 11/05/15 Dr. Bharath Conti ([facility]) FROM [facility]: Relates that she has been having a allergic reaction for several days. She reports rash on her forearms and complains of tongue swelling and difficulty swallowing. Nothing aggravates this problem. Nothing alleviates this problem. Prednisone was tried, without improvement. FROM A&P: Rash Anxiety Panic Attack Female with a rash due to an allergic reaction to an unknown trigger, with associated anxiety and panic. Symptoms are improved in the ED with treatments as above. Exam reassuring. Diagnoses considered and excluded: anaphylaxis. Outpatient treatment and clinic follow-up are indicated. Advised to resume current medications, follow-up with Frederick Chamorro MD and to return the Emergency Department if her symptoms worsen. 11/03/15 Dr. Barb Nolan/Dr. Frederick Chamorro ([facility]) FROM [facility]: Female who has a history of constipation (had a GI physician), pelvic pain, endometriosis (status post 3 cystectomies), S/P appendectomy, S/P cholecystectomy, dysmenorrhea, asthma who presents with swelling of her tongue. She moved into her boyfriend's parents house approximately 2 months ago. 10 days ago she began having itching from head to toe when she went to bed. Since that time she's had intermittent swelling of her tongue. It was originally only one side of it now her entire stay on the swelling. She states that she gets swelling of the tongue and tightness of her throat. She has not used her epinephrine pen yet. She states usually she is able to take Benadryl and the swelling resolves within 40 minutes. She states that today she woke up and had swelling of her time and thickening of her throat. She took 20 mg of prednisone and 70 and again at 12:30. She has not noticed a benefitfrom it. She has also had numbness of her lips, of her left eye, her left arm. She came lotion inher mouth. Her mother drove her in. She is speaking full complete senses. She says that she gets almost daily panic attacks and more so since that time has begun swelling. Stabilizer Operator: Dr. Moreland in [place]. She met him for the first time last which is 4 days ago. She saw him in [place]. [phone]. She is awaiting on lab work. She noted white blood cell count was elevated but was told that could be due to prednisone. She had a normal chest x-ray. She has not heard about any of the pollen testing at. Diet: She is placed on a special diet. Avoid: Alcohol, soda, juice, cheese, sour cream, wheat, gluten, peanuts, nuts, chocolate, oranges, grapes. She may only have one cup of tea or coffee per day. Allowed foods:, Blueberries, blackberries, gluten-free bread, rice, beans, parents, chicken, vegetables INTERVENTIONS: All Medication Administration through 11/03/2015 1407 Date/Time Order Dose Route Action 11/03/2015 1344 diphenhydrAMINE 50 mg injection (BENADRYL) 50 mg Intravenous Given 11/03/2015 1300 EPINEPHrine 0.3 mg injection 0.3 mg Intra-Muscular Given 11/03/2015 1345 sodium chloride 0.9% 10 mL syringe (NORMAL SALINE) 10 mL Intravenous Given FROM A&P: Anaphylaxis, initial encounter Female who has been having intermittent daily swelling and a thick feeling in her throat. She also has noted having numbness and tingling around her mouth, her left eye, her arm. She is working with an regulatory affairs spec in [place] and has appointment this coming . She's been put on a very specific diet as stated in the history of present illness. Due to the thick feeling she was having in herthroat she was given epinephrine, Solu-Medrol, famotidine, Benadryl. She remained stable over the 2hour time period. She has been taking 60 mg of prednisone daily. I did read a taper for her to decrease to 40 mg ??3 days, 20 mg ??3 days 10 mg ??3 days. She will call her regulatory affairs spec when she leaves. She will use her patient if needed. She will return if she has concerns. 10/24/15 Dr. Jesus Dolan ([facility]) FROM [facility]: She states she's had a history of some allergic reactions. Over the last several days she's had intermittent episodes of skin hives and rashes. Also had significant itching. Yesterday she had some tongue swelling associated with the symptoms. It went away rapidly. However tonight she developed recurrent tongue swelling along with generalized itching. She is concerned and decided to come to the emergency department for evaluation. She reports swelling is now improved spontaneously. She did take a Benadryl at home. She denies any significant cough or shortness of breath. No abdominal pain nausea or vomiting. No recent new medications. Denies any history of severe allergic reactions in the past. She does have history of some hives intermittently for which she uses Benadryl for. FROM A&P: Presents emergency Department with a history of what sounds like a mild allergic reaction. No significant allergic reaction noted here in the emergency department. We will give her prednisone as wellas a prescription for an EpiPen. Return to the emergency department if worsening symptoms. Continueuse Benadryl as needed. Medications Prescribed this Visit Disp Refills Start End predniSONE (DELTASONE) 20 mg tablet 8 tablet 0 10/24/2015 10/28/2015 Take 2 tablets by mouth once daily with a meal for 4 days. Oral EPINEPHrine (EPIPEN) 0.3 mg/0.3 mL injection 1 Each 3 10/24/2015 Inject 0.3 mg intramuscular one time if needed for Allergic Reaction for up to 1 dose. Intra-Muscular 09/20/12 Dr. Enrique Hawkins ([facility]) S: The patient is a 32-year-old female seen today for an opinion on symptoms that initially were spring and fall, but are now year-round. She describes sneezing, nasal congestion and some postnasal drip, and cough. Benadryl and Claritin really have not helped. She has not used a nose spray or eye drops. She has not been tested for allergies. She has an albuterol inhaler that she uses rarely. PAST MEDICAL HISTORY: Reveals no other medications. SHE HAS LORATADINE LISTED A DRUG ALLERGY. ENVIRONMENTAL HISTORY: Reveals a cat in the home. She is a smoker. 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 FAMILY HISTORY: Reveals an uncle with allergic rhinitis. Skin tests done today show a positive-positive control and negative skin test results. A: Nonallergic rhinitis, probably complicated by tobacco use. P: I have encouraged her to quit smoking. We will get her started on a fluticasone nose spray. Mechanisms and side effects were reviewed, and we will plan on rechecking in a month. 01/30/08 Dr. Joanie Rico ([facility] ED) FROM [facility]: Presents to Emergency Department complaining of right sided tooth/jaw pain which began this morningwhen she woke up. She states that it feels like a lump. When she woke up this morning she noticeddifficulty opening her mouth and speaking. She can't chew or eat anything. She also complains of having chest tightness, shortness of breath, a skin rash on her forearms, and a phlegmy cough for two weeks now. Last evening, the patient was burning up. Additionally the patient had an appendectomy 2.5 weeks ago. INTERVENTIONS: 1. Cleocin 300mg PO 2. Benadryl 50mg IM 3. Xopenex 1.25mg Neb FROM A&P: Female who presents with right jaw pain which I feel is due to a periapical abscess of tooth 30. There is no sign of abscess that requires drainage. The patient also has other complaints including a rash on her arms and difficulty breathing. After a nebulizer treatment in the Emergency Department as well as benadryl, her symptoms have resolved and she would like to be discharged home. I do not feel that her symptoms are from anaphylaxis as her vital signs are normal. I feel her breathing difficulty is due to a mild asthma exacerbation vs. anxiety and her rash is a mild contact dermatitis. Push fluids, rest. Use albuterol inhaler as needed. Take clindamycin as prescribed to treat dental infection. Ibuprofen 3 times daily with food. Vicodin as needed for additional pain. Benadryl over the counter if needed for itching. See dentist in 5-7 days for recheck. See PMD in 1-2 weeks. Return to ED with any change/worsening. Referred By: Referred Self, Allergy Tests: 09/20/12 Dr. Enrique Hawkins ([facility] allergy) Order for Future Allergy Testing: [x] Outpatient [] Inpatient: John..../ Bed .... Skin Atopy (atopic dermatitis) [x] Yes [] No .........see [facility] Contact allergies: [] Yes [x] No .......... Hand eczema: [x] Yes [] No .........see HPI Leading hand: [x] R [] L [] Ambidextrous Drug allergies: [] Yes [x] No which?...... all [facility]-listed allergies as of 10/18/23 are side effects; she does not know why Flexeril is listed, as she does not remember having a reaction to it Urticaria/Angioedema [x] Yes [] No ......... see HPI Food Allergy: [x] Yes [] No which?......see HPI Pets : [] Yes [x] No which?...... [x] Rhinitis [x] Conjunctivitis [x] Sinusitis [] Polyposis [x] Otitis [] Pharyngitis [x] Postnasal drip [] none Operations: [] Tonsils [] Septum [] Sinus [] Polyposis [x] none [x] Asthma bronchiale [] Coughing [] none Symptoms (mostly Rhinoconjunctivitis and Asthma) aggravated by: Season [] I [] II [x] III [x] IV []V [] []VII []VIII [x]IX [x]X []XI []XII [] perennial Day time [] morning [] noon [] evening [] night [x] whole day........ [] none Location/changes [] inside [x] outside [] mountains [] sea [] others............. [] none Triggers, specific [] animals [x] plants/trees [] dust [] others ........................... [] none Triggers, others [] work [] psyche [] sport [] others ............................. [x] none Irritant [] phys efforts [] smoke [] heat/cold [] odors []others............... [x] none Order for PATCH TESTS Reason for tests (suspected allergy): not necessary at this time Known previous allergies: N/A Standardized panels [] Standard panel (40 tests) [] Preservatives & Antimicrobials (31 tests) [] Emulsifiers & Additives (25 tests) [] Perfumes/Flavours & Plants (25 tests) [] Hairdresser panel (12 tests) [] Rubber Chemicals (22 tests) [] Plastics (26 tests) [] Colorants/Dyes/Food additives (20 tests) [] Metals (implants/dental) (24 tests) [] Local anaesthetics/NSAIDs (13 tests) [] Antibiotics & Antimycotics (14 tests) [] Corticosteroids (15 tests) [] Photopatch test (62 tests) [] others: ... [] Patient's own products: ... DO NOT test if chemical or biological identity is unknown! always ask from patient the product information and safety sheets (MSDS) Order for PRICK TESTS Reason for tests (suspected allergy): seasonal and recurrent RC, RS, OM, PND, asthma in late fall and early spring > summer; xerotic skin; oral allergy syndrome to almond Known previous allergies: see prior records & HPI sections for list Standardized prick panels [x] Atopic panel (20 tests) [] Pediatric Panel (12 tests) [] Milk, Meat, Eggs, Grains (20 tests) [] Dust, Epithelia, Feathers (10 tests) [] Fish, Seafood, Shellfish (17 tests) [x] Nuts, Beans (8 tests) [] Spice, Vegetable, Fruit (17 tests) [] Pollen Panel = Tree, Grass, [place] (24 tests) [] Others: ... [] Patient's own products: ... DO NOT test if chemical or biological identity is unknown! always ask from patient the product information and safety sheets (MSDS) Standardized intradermal tests [x] Penicillium notatum [x] Aspergillus fumigatus [x] House dust mites D.far & D. pteron [] Cat [] dog [x] Others: Alternaria alternata, Cladosporium herbarum [] Bee venom [] Wasp venom !!Specific protocol with dilutions!! Order for Drug allergy tests (prick & Intradermal & patch tests) [] Penicillin G [] Ampicillin [] Cefazolin [] Ceftriaxone [] Ceftazidime [] Bactrim [] Others: ... Order for ... as test date [] Patient needs consultation with Allergy team (changes of tests may apply) [x] Tests discussed with Allergy team (can have direct appointment for allergy tests) Atopy Screen (Placed October 18, 2023) No Substance Readings (15 min) Evaluation POS Histamine 1mg/ml - NEG NaCl 0.9% - No Substance Readings (15 min) Evaluation 1 Alternaria alternata (tenuis) - 2 Cladosporium herbarum - 3 Aspergillus fumigatus - 4 Penicillium notatum - 5 Dermatophagoides pteronyssinus - 6 Dermatophagoides farinae - 7 Dog epithelium (canis spp) - 8 Cat hair (lauren catus) - 9 Cockroach (Blatella americana & germanica) - 10 Grass mix midwest (Natasha, Orchard, Redtop, Arsenio) - 11 Tab grass (sorghum halepense) - 12 [place] mix (common Cocklebur, Waldron???s quarters, rough redroot Pigweed, Dock/Red Dog Mine) - 13 Mug wort (artemisia vulgare) - 14 Ragweed giant/short (ambrosia spp) - 15 White birch (Betula papyrifera) - 16 Tree mix 1 (Pecan, Maple BHR, [place] RVW, zambian [place], black Barnhart) - 17 Red cedar (juniperus kathleen) - 18 Tree mix 2 (white Olivier, river/red Birch, black Ensign, common Lasalle, zambian Elm) - 19 Box elder/Maple mix (acer spp) - 20 [place] shagbark (carya ovata) - Conclusion: Nuts and Beans (Placed October 18, 2023) No Substance Readings (15min) Evaluation 1 [place] (prunus dulcis) - 2 [place] nut (bertholletia excels) - 3 Cashew nut (anacardium occidentale) - 4 Coconut (cocos nucifera) - 5 Hazelnut (corylus americana) - 6 Pecan (carya illinoinensis) - 7 Ensign (juglans regia) - 8 Pistachio nut (pistacia vera) - Conclusion: Intradermal Testing (Placed October 18, 2023) No Substance Conc. Reading (15min) immediate Papule [mm] / Erythema [mm] Reading (... days) delayed Papule [mm] / Erythema [mm] Remarks DF Standard Dust Mite - D. Farinae 1:10 - - - DP Standard Dust Mite - D. Pteronyssinus 1:10 - - - A Aspergillus fumigatus 1:10 - - - P Penicillium notatum 1:10 - - - Alternaria alternata 1:10 - - - Cladosporium herbarum 1:10 - - - Conclusion: No signs for immediate-type reaction. Patient will provide feedback if delayed-type reaction is experienced. 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 ==> Treatment Plan: >> PFT ordered today. >> Labs ordered today: tryptase; IgE; anti-IgE; specific IgEs for almonds, Dermatophagoides pteronyssinus, Aspergillus fumigatus, Alternaria alternata. >> Start Symbicort 160-4.5 inhaler: 2 puffs BID.. >> Start Xyzal 5 mg PO QAM. >> For dry skin, prescribed Vanicream cream to be used daily. Procedures Performed: Allergy prick and IDT tests Staff, Medical Student, and Scribe: Provider Scribe Disclosure: I, EDMOND YOUNG, am serving as a scribe to document services personally performed by Corby Centeno MD based on data collection and the provider's statements to me. Staff Physician Comments: I was present with the scribe who participated in the documentation of the note. I have verified the history and personally performed the physical exam and medical decision making. I agree with the assessment and plan as documented in the note. I have reviewed and if necessary amended the note. Corby Centeno MD Professor Head of Dermato-Allergy Division Department of Dermatology [facility] Follow-up in Derm-Allergy clinic in 2 months following completion of PFT and labs I spent a total of 45 minutes with Natalie Mcnulty. This time was spent counseling the patient and/or coordinating care, explaining the allergy tests, performing allergy tests and assessing the clinical relevance. documented in this encounter Nursing Notes * Octaviano Negron RN - 10/18/2023 8:00 AM CDT Chief Complaint Patient presents with Allergy Consult Per pt highly allergic to molds, completed prick/blood testing, approx 4 years ago fall, window open overnight, woke up with tongue swelling/perioral numbness/swelling, treated with epipen at ED, resolved, continued happening, gargling with liquid benadryl helps, has benadryl as emergency medicine.Saw regulatory affairs spec, reyna but caused palpations, didn't help symptoms. Allergic to decongestants per pt. Worst late fall early spring, also suspects trees, unable to go outside/hiking/being outside Octaviano Negron RN documented in this encounter Plan of Treatment Upcoming Encounters Date Type Department Care Team (Late Contact Info) Description 12/20/2023 10:45 AM CDT Office Visit [facility] [address] [phone] Corby Centeno MD [address] [place] [address] [phone] Scheduled Orders Name Type Priority Associated Diagnoses Orde r Schedule General PFT Lab (Please always keep checked) PFT Routine Mild intermittent asthma with acute exacerbation Expected: 04/19/2024 (Approximate), Expires: 10/17/2024 Pulmonary Function Test PFT Routine Mild intermittent asthma with acute exacerbation Expected: 11/18/2023 (Approximate), Expires: 10/17/2024 Tryptase Lab Routine Mild intermittent asthma with acute exacerbation Non-seasonal allergic rhinitis due to pollen Angioedema, subsequent encounter Nut allergy Atopy Expected: 10/18/2023 (Approximate), Expires: 10/17/2024 Allergen alternaria alternata IgE Lab Routine Mild intermittent asthma with acute exacerbation Non-seasonal allergic rhinitis due to pollen Angioedema, subsequent encounter Nut allergy Atopy Expected: 10/18/2023 (Approximate), Expires: 10/17/2024 Allergen aspergillus fumigatus IgE Lab Routine Mild intermittent asthma with acute exacerbation Non-seasonal allergic rhinitis due to pollen Angioedema, subsequent encounter Nut allergy Atopy Expected: 10/18/2023 (Approximate), Expires: 10/17/2024 Allergen D pteronyssinus IgE Lab Routine Mild intermittent asthma with acute exacerbation Non-seasonal allergic rhinitis due to pollen Angioedema, subsequent encounter Nut allergy Atopy Expected: 10/18/2023 (Approximate), Expires: 10/17/2024 Allergen almonds IgE Lab Routine Mild intermittent asthma with acute exacerbation Non-seasonal allergic rhinitis due to pollen Angioedema, subsequent encounter Nut allergy Atopy Expected: 10/18/2023 (Approximate), Expires: 10/17/2024 IgE Lab Routine Mild intermittent asthma with acute exacerbation Non-seasonal allergic rhinitis due to pollen Postnasal drip Angioedema, subsequent encounter Nut allergy Atopy Expected: 10/18/2023 (Approximate), Expires: 10/17/2024 documented as of this encounter Procedures Procedure Name Priority Date/Time Associated Diagnosis Comments MT INTRACUT SKIN TESTS,ALLERGENS Routine 10/18/2023 10:07 PM CDT Mild intermittent asthma with acute exacerbation Non-seasonal allergic rhinitis due to pollen Postnasal drip Angioedema, subsequent encounter Nut allergy Atopy MT ALLERGY SKIN TESTS,ALLERGENS Routine 10/18/2023 10:07 PM CDT Mild intermittent asthma with acute exacerbation Non-seasonal allergic rhinitis due to pollen Postnasal drip Angioedema, subsequent encounter Nut allergy Atopy documented in this encounter Visit Diagnoses Diagnosis Mild intermittent asthma with acute exacerbation- Primary Unspecified asthma, with exacerbation Non-seasonal allergic rhinitis due to pollen Postnasal drip Angioedema, subsequent encounter Nut allergy Allergy, unspecified not elsewhere classified Atopy Other allergy, other than to medicinal agents documented in this encounter Additional Health Concerns Assessment Noted Time PHQ-9 Depression Total Score: 1 04/07/20 23 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 documented as of this encounter Care Teams Wax Machine Operator Relationship Specialty Start Date End Date System, Provider Not In PCP - General Clinic 07/15/23 Shirlene Amos MD [address] [place] [address] [place] [address] Dermatology 12/29/15 Pat Cole APRN CNP [address] [place] [address] [id number] Nurse Practitioner 01/19/22 Letha Manzanares MD [address] [place] [address] [phone] Ophthalmology 03/25/23 Corby Centeno MD [address] [place] [address] [id number] Dermatology 03/29/23 Cynthia Dubon MD [address] [place] [address] [id number] Cardiovascular Disease 04/19/23 Letha Manzanares MD [address] [place] [address] [phone] Assigned Surgical Provider 04/23/23 Wilma Saba MD [address] [facility] [address] [place], [place] 319474 Assigned OBGYN Provider 04/09/23 Jeannette Jean Baptiste NP [address] [place] [address] [phone] Assigned PCP 06/23/23 Cynthia Dubon MD [address] [place] [address] [id number] Assigned Heart and Vascular Provider 07/01/23 documented as of this encounter
--- OUTSIDE RECORDS SUMMARY | 2023-11-16 11:02 | XMS_ITS | Encounter Summary ---
Author Organization [facility] Address [address] [place] [address] Care Team Providers Care Nephrology Social Worker Name Role Phone BetteShirlene MD Unavailable [phone] [facility] Primary Care Provider Burton Duncan MD Unavailable [phone] Pat Cole APRN BLEACH PACKER Unavailable [phone] Yohana Estes PA-C Unavailable [phone] Letha Manzanares MD Unavailable [phone] Corby Centeno MD Unavailable [phone] Cynthia Dubon MD Unavailable [phone] Letha Manzanares MD Unavailable [phone] Wilma Saba MD Unavailable [phone] Jeannette Jean Baptiste NP Unavailable [phone] Cynthia Dubon MD Unavailable [phone] System, Provider Not In Primary Care Provider Un available Reason for Visit * Reason Onset Date Comments Appointment 03/01/2023 Encounter Details Date Type Department Care Team (Late st Contact Info) Description 03/01/[address] [facility] [address] [place] [address] Ewelina Alexandra MD [address] [place] [address] [phone] Appointment Social History Tobacco Use Types Packs/Day Years Used Date Smoking Tobacco: Former Cigarettes 0.5 10 Smokeless Tobacco: Never Alcohol Use Standard Drinks/Week Comments Yes 0 (1 standard drink = 0.6 oz pur e alcohol) rare PHQ-2 Answer Date Recorded PHQ-2 Score 0 02/22/2023 Adolescent Education Answer Date Record ed Getting [...] in an abandoned building, in an overnight retirement, or couch-surfing.) Yes 02/22/2023 Are you worried [...] suspected to have Coronavirus/COVID-19? No / Unsure 03/04/2023 8:31 AM CDT documented as of this encounter Miscellaneous Notes * Telephone Encounter - Sabra Quintana CMA - 03/08/2023 10:15 AM CDT Callback received from [facility] to follow-up on this request-is unsure of what the final recommendations are for now? Is pt able to get in for an earlier appt? Should her doctor do an e-consult? Pleaseadvise. [facility] can be reached at [phone], ok to leave detailed information on voicemail. * Telephone Encounter - Luz Montgomery - 03/04/2023 8:12 AM CDT Central scheduling is unable to determine which spots are available to use for this visit, a searchof all clinics was preformed both in person and virtual, please assist [facility] in getting appt moved toa sooner at Dr Vizcarra's request. Please call [facility] at [phone]. My apologies and thank youfor your help * Telephone Encounter - Alysia Vizcarra MD - 03/01/2023 5:56 PM CDT Endocrine triage The scheduled first available endocrine appointment timeframe is acceptable. E- consult may be an option for answer to specific question by the referring provider. E-consults generally have a responsewithin 3 days. Alysia Vizcarra MD * Telephone Encounter - Katty Melissa - 03/01/2023 2:50 PM CDT [facility] Phone Message May a detailed message be left on voicemail: yes Reason for Call: Other: Pt being referred for Thyroid nodule, no appt available in 4 weeks, please call [facility] at [place] [facility] at [phone] documented in this encounter Plan of Treatment Upcoming Encounters Date Type Department Care Team (Late st Contact Info) Description 12/20/2023 10:45 AM CDT Office Visit [facility] [address] [phone] Corby Centeno MD [address] [place] [address] [phone] documented as of this encounter Visit Diagnoses Not on filedocumented in this encounter Additional Health Concerns Assessment Noted Time PHQ-9 Depression Total Score: 2 02/23/20 10:16 AM CDT documented as of this encounter Care Teams Nephrology Social Worker Relationship Specialty Start Date End Date Clinic - [facility] [address] [place] [address] PCP - General Clinic 10/03/22 07/14/23 System, Provider Not In PCP - General Clinic 07/15/23 [place] [address] [place] [address] [place] [address] Dermatology 12/29/15 Burton Duncan MD [address] [place] [address] [phone] Assigned Musculoskeletal Provider 12/19/21 07/21/23 Pat Cole APRN BLEACH PACKER [address] [place] [address] [phone] Nurse Practitioner 01/19/22 Yohana Estes PA-C [address] [place] [address] [id number] Assigned PCP 05/08/22 06/22/23 Letha Manzanares MD [address] [place] [address] [phone] MD Ophthalmology 03/25/23 Corby Centeno MD [address] [place] [address] [id number] MD Dermatology 03/29/23 Cynthia Dubon MD [address] [place] [address] [phone] Cardiovascular Disease 04/19/23 Letha Manzanares MD [address] [place] [address] [phone] Assigned Surgical Provider 04/23/23 Wilma Saba MD [address] [place], [place] [address] Assigned OBGYN Provider 04/09/23 Jeannette Jean Baptiste OPTOMECHANICAL TECHNICIAN [address] [place] [address] [phone] Assigned PCP 06/23/23 Cynthia Dubon MD [address] [place] [address] [phone] Assigned Heart and Vascular Provider 07/01/23 documented as of this encounter
--- OUTSIDE RECORDS SUMMARY | 2023-11-16 11:02 | XMS_ITS | Encounter Summary ---
Author Organization [place] Address [address] [place] [address] Care Team Providers Care Acid Cutter Name Role Phone BetteShirlene MD Unavailable [phone] Manju Crooks SPAGHETTI PRESS HELPER CNM Unavailable [facility] Primary Care Provider Zaira Queen APRN AUTOMATIC RIVETING MACHINE OPERATOR Unavailable Franklyn Chadwick DPM Unavailable [phone] Eva Echols DO Unavailable +[phone] Heidi uGnn PA-C Unavailable +[phone] Sukumar Villarreal MD Unavailable +[phone] Burton Duncan MD Unavailable +[phone] Pat Cole APRN AUTOMATIC RIVETING MACHINE OPERATOR Unavailable [phone] Yohana EstesC Unavailable +[phone] Letha Manzanares MD Unavailable [phone] Corby Centeno MD Unavailable [phone] Cynthia Dubon MD Unavailable [phone] Letha Manzanares MD Unavailable [phone] Wilma Saba MD Unavailable [phone] Markel Jeannettedarian Gonzales NP Unavailable +[phone] Cynthia Dubon MD Unavailable [phone] System, Provider Not In Primary Care Provider Un available Encounter Details Date Type Department Care Team (Late st Contact Info) Description 09/05/2020 MyC Medical Advice [facility] [address] [facility] [address] [place] [address] Zaira Queen, SPAGHETTI PRESS HELPER AUTOMATIC RIVETING MACHINE OPERATOR [address] [place] [address] Social History Tobacco Use Types Packs/Day Years Used Date Smoking Tobacco: Every Day Cigarettes 0.5 10 Smokeless Tobacco: Never Alcohol Use Standard Drinks/Week Comments Yes 0 (1 standard drink = 0.6 oz pur e alcohol) rare PHQ-2 Answer Date Recorded PHQ-2 Total Score (Adult) - Positive if 3 or more points; Administer PHQ-9 if positive 0 08/19/2020 Sex and Gender Information Value Date Recorded Sex Assigned at Female 09/29/2020 3:49 PM CDT Gender Identity Female 09/29/2020 3:49 PM CDT Sexual Orientation Straight 09/29/2020 3: 49 PM CDT COVID-19 Exposure Response Date Recorded In the last month, have you been in contact with someone who was confirmed or suspected to have Coronavirus / COVID-19? No / Unsure 08/31/2020 1:01 PM CDT documented as of this encounter Plan of Treatment Upcoming Encounters Date Type Department Care Team (Late st Contact Info) Description 12/20/2023 10:45 AM CDT Office Visit [facility] Clinic [address] [phone] Corby Centeno MD [address] [place] [address] documented as of this encounter Visit Diagnoses Not on filedocumented in this encounter Additional Health Concerns Assessment Noted Time PHQ-9 Depression Total Score: 1 08/21/19 21 7:02 AM CDT documented as of this encounter Care Teams Acid Cutter Relationship Specialty Start Date End Date Clinic - [facility] [address] [place] [address] PCP - General Clinic 10/03/22 07/14/23 System, Provider Not In PCP - General Clinic 07/15/23 Shirlene Amos MD [address] [place] [address] Dermatology 12/29/15 Manju Crooks SPAGHETTI PRESS HELPER CNM Assigned OBGYN Provider 03/21/20 09/19/21 Zaira Queen, SPAGHETTI PRESS HELPER AUTOMATIC RIVETING MACHINE OPERATOR [address] [place] [address] Assigned PCP 05/04/20 03/07/21 Franklyn Chadwick DPM [address] [facility] [place] [address] Assigned Musculoskeletal Provider 05/18/20 11/13/21 [place] [address] [place] [address] Assigned Gastroenterology Provider 11/23/20 12/20/20 Heidi Gunn, JAKYC [address] [place] [address] Assigned PCP 03/08/21 05/07/22 Sukumar Villarreal MD [address] [place] [address] [place] [address] Assigned Musculoskeletal Provider 11/14/21 12/18/21 Burton Duncan MD [address] [place] [address] Assigned Musculoskeletal Provider 12/19/21 07/21/23 Pat Cole APRN AUTOMATIC RIVETING MACHINE OPERATOR [address] [place] [address] 857285 Nurse Practitioner 01/19/22 Yohana Estes PA-C [address] [place] [address] 653500 Assigned PCP 05/08/22 06/22/23 Letha Manzanares MD [address] [place] [address] [phone] Ophthalmology 03/25/23 Corby Centeno MD [address] [place] [address] 076525 Dermatology 03/29/23 Cynthia Dubon MD [address] [place] [address] 980425 Cardiovascular Disease 04/19/23 Letha Manzanares MD [address] [place] [address] 674815 Assigned Surgical Provider 04/23/23 Wilma Saba MD [address] [place] [address] Assigned OBGYN Provider 04/09/23 Jeannette Jean Baptiste NP [address] 452315 Assigned PCP 06/23/23 Cynthia Dubon MD [address] [place] [address] 775245 Assigned Heart and Vascular Provider 07/01/23 documented as of this encounter
--- OUTSIDE RECORDS SUMMARY | 2023-11-16 11:02 | XMS_ITS | Encounter Summary ---
Author Organization [place] Address [address] [facility] [place] [address] Care Team Providers Care Diesel Powerplant Mechanic Helper Name Role Phone BetteShirlene MD Unavailable [phone] [facility] Primary Care Provider Burton Duncan MD Unavailable [phone] Pat Cole APRN AUDITING SPECIALIST Unavailable [phone] Yohana Estes PA-C Unavailable [phone] Letha Manzanares MD Unavailable [phone] Corby Centeno MD Unavailable [phone] Cynthia Dubon MD Unavailable [phone] Letha Manzanares MD Unavailable [phone] Wilma Saba MD Unavailable [phone] Jeannette Jean Baptiste NP Unavailable [phone] Cynthia Dubon MD Unavailable [phone] System, Provider Not In Primary Care Provider Un available Reason for Visit * Reason Onset Date Comments Appointment 04/07/2023 IUD under anesth esia Encounter Details Date Type Department Care Team (Late st Contact Info) Description 04/07/2023 Telephone [facility] [place] [address]rd Floor,[address] [facility] [address] [place] [address] Wilma Saba MD [address] [place] [address] Appointment (IUD under anesthesia ) Social History Tobacco Use Types Packs/Day Years Used Date Smoking Tobacco: Former Cigarettes 0.5 10 Smokeless Tobacco: Never Alcohol Use Standard Drinks/Week Comments Not Currently 0 (1 standard drink = 0.6 oz pur e alcohol) in treatment PHQ-2 Answer Date Recorded PHQ-2 Score 0 04/07/2023 Adolescent Education Answer Date Record ed Getting [...] encounter Miscellaneous Notes * Telephone Encounter - Deonteuzair Keke - 04/07/2023 12:21 PM CST [facility] Call Center Phone Message May a detailed message be left on voicemail: yes Reason for Call: Appointment Intake Referring Provider Name: Jeannette Jean Baptiste NP Diagnosis and/or Symptoms: IUD placement under anesthesia Please call pt to schedule an IUD placement under anesthesia, thank you! Action Taken: Other: joselyn box turner Screening: Not Applicable NER INTEGRATION PLANNER documented in this encounter Plan of Treatment Upcoming Encounters Date Type Department Care Team (Late st Contact Info) Description 12/20/2023 10:45 AM CDT Office Visit [facility] Allergy Clinic [address] [phone] Corby Centeno MD [address] [place] [address] documented as of this encounter Visit Diagnoses Not on filedocumented in this encounter Additional Health Concerns Assessment Noted Time PHQ-9 Depression Total Score: 1 04/07/20 7:51 AM PARTNER INTEGRATION PLANNER documented as of this encounter Care Teams Diesel Powerplant Mechanic Helper Relationship Specialty Start Date End Date Clinic - [facility] [id number] [place] [address] PCP - General Clinic 10/03/22 07/14/23 System, Provider Not In PCP - General Clinic 07/15/23 Shirlene Amos MD [address] [place] [address] Dermatology 12/29/15 Burton Duncan MD [address] [place] [address] Assigned Musculoskeletal Provider 12/19/21 07/21/23 Pat Cole APRN AUDITING SPECIALIST [address] [place] [address] 213255 Nurse Practitioner 01/19/22 Yohana Estes PA-C [address] [place] [address] Assigned PCP 05/08/22 06/22/23 Letha Manzanares MD [address] [place] [address] [phone] Ophthalmology 03/25/23 Corby Centeno MD [address] [place] [address] Dermatology 03/29/23 Cynthia Dubon MD [address] [place] [address] 280885 Cardiovascular Disease 04/19/23 Letha Manzanares MD [address] [place] [address] 611625 Assigned Surgical Provider 04/23/23 Wilma Saba MD [address] [phone] Assigned OBGYN Provider 04/09/23 Jeannette Jean Baptiste NP [address] [place] [address] 117225 Assigned PCP 06/23/23 Cynthia Dubon MD [address] [place] [address] 563935 Assigned Heart and Vascular Provider 07/01/23 documented as of this encounter
--- OUTSIDE RECORDS SUMMARY | 2023-11-16 11:02 | XMS_ITS | Encounter Summary ---
Author Organization [place] Address [address] [facility] [place] [address] Care Team Providers Care Air Duct Mechanic Name Role Phone BetteShirlene MD Unavailable [phone] Manju Crooks HOSPICE OFFICE COORDINATOR CNM [facility]available [facility] Provider Zaira Queen APRN INTERNATIONAL OPERATIONS MANAGER Unavailable Franklyn Chadwick DPM Unavailable [phone] Eva Echols DO Unavailable [phone] Heidi Gunn PA-C Unavailable [phone] Sukumar Villarreal MD Unavailable [phone] Burton Duncan MD Unavailable [phone] Pat Cole APRN INTERNATIONAL OPERATIONS MANAGER Unavailable [phone] Yohana EstesC Unavailable [phone] Letha Manzanares MD Unavailable [phone] Corby Centeno MD Unavailable [phone] Cynthia Dubon MD Unavailable [phone] Letha Manzanares MD Unavailable [phone] Wilma Saba MD Unavailable [phone] Markel Jeannettedarian Gonzales NP Unavailable Cynthia Dubon MD Unavailable [phone] System, Provider Not In Primary Care Provider Un available Encounter Details Date Type Department Care Team (Late st Contact Info) Description 11/05/2020 MyC Medical Advice [facility] Gastroenterology Clinic [address] 4th [place] [address] Adrianne Richards MD [address] [place] [address] 741 [place] [address] Social History Tobacco Use Types Packs/Day Years [...] have Coronavirus / COVID-19? No / Unsure 11/04/2020 7:28 AM CDT documented as of this encounter Plan of Treatment Upcoming Encounters Date Type Department Care Team (Late Contact Info) Description 12/20/2023 10:45 AM CDT Office Visit [facility] Allergy Clinic [address] [address] Corby Centeno MD [address] [place] [address] documented as of this encounter Visit Diagnoses Not on filedocumented in this encounter Additional Health Concerns Assessment Noted Time PHQ-9 Depression Total Score: 1 08/21/19 21 7:02 AM CDT documented as of this encounter Care Teams Air Duct Mechanic Relationship Specialty Start Date End Date Clinic - [facility] [address] [place] [address] PCP - General Clinic 10/03/22 07/14/23 System, Provider Not In PCP - General Clinic 07/15/23 Shirlene Amos MD [address] [facility] [place] [address] Dermatology 12/29/15 Manju Crooks, HOSPICE OFFICE COORDINATOR CNM Assigned OBGYN Provider 03/21/20 09/19/21 Zaira Queen HOSPICE OFFICE COORDINATOR INTERNATIONAL OPERATIONS MANAGER [address] [place] [address] Assigned PCP 05/04/20 03/07/21 Franklyn Chadwick DPM [address] [facility] [place] [address] Assigned Musculoskeletal Provider 05/18/20 11/13/21 [place] [address] [place] [address] Assigned Gastroenterology Provider 11/23/20 12/20/20 Heidi Gunn, PAGuillermoC [address] [place] [address] Assigned PCP 03/08/21 05/07/22 Sukumar Villarreal MD [address] [place] [address] Assigned Musculoskeletal Provider 11/14/21 12/18/21 Burton Duncan MD [address] [place] [address] Assigned Musculoskeletal Provider 12/19/21 07/21/23 Pat Cole APRN INTERNATIONAL OPERATIONS MANAGER [address] [place] [address] 495815 Nurse Practitioner 01/19/22 Yohana Estes PA-C [address] [place] [address] Assigned PCP 05/08/22 06/22/23 Letha Manzanares MD [address] [place] [address] Ophthalmology 03/25/23 Corby Centeno MD [address] [place] [address] 584275 Dermatology 03/29/23 Cynthia Dubon MD [address] [place] [address] 039585 Cardiovascular Disease 04/19/23 Letha Manzanares MD [address] [place] [address] [phone] Assigned Surgical Provider 04/23/23 Wilma Saba MD [address] [place] [address] [phone] Assigned OBGYN Provider 04/09/23 Jeannette Jean Baptiste NP [address] [address] Assigned PCP 06/23/23 Cynthia Dubon MD [address] [place] [address] Assigned Heart and Vascular Provider 07/01/23 documented as of this encounter
--- OUTSIDE RECORDS SUMMARY | 2023-11-16 11:02 | XMS_ITS | Encounter Summary ---
Author Organization [place] Address [address] [facility] [place] [address] Care Team Providers Care Environmental Property Assessor Name Role Phone BetteShirlene MD Unavailable [facility] Primary Care Provider Franklyn Chadwick DPM Unavailable [phone] Heidi Gunn PA-C Unavailable [phone] Sukumar Villarreal MD Unavailable Burton Duncan MD Unavailable [phone] Pat Cole APRN CARBON PAPER INTERLEAFER Unavailable Yohana Estes PA-C Unavailable [phone] Letha Manzanares MD Unavailable [phone] Corby Centeno MD Unavailable [phone] Cynthia Dubon MD Unavailable [phone] Letha Manzanares MD Unavailable [phone] Wilma Saba MD Unavailable [phone] Jeannette Jean Baptiste NP Unavailable Cynthia Dubon MD Unavailable [phone] System, Provider Not In Primary Care Provider Un available Encounter Details Date Type Department Care Team (Late st Contact Info) Description 11/11/2021 MyC Medical Advice [facility] [address] [place] [address] Geraldo Lui MA Social History [...] Description 12/20/2023 10:45 AM CDT Office Visit [facility] Allergy Clinic [address] [phone] Corby Centeno MD [address] [place] [address] documented as of this encounter Visit Diagnoses Not on filedocumented in this encounter Additional Health Concerns Assessment Noted Time PHQ-9 Depression Total Score: 5 05/06/20 21 7:33 AM ROTARY SCREEN PRINTING MACHINE OPERATOR documented as of this encounter Care Teams Environmental Property Assessor Relationship Specialty Start Date End Date Clinic - [facility] [address] [place], [place] [phone] PCP - General Clinic 10/03/22 07/14/23 System, Provider Not In PCP - General Clinic 07/15/23 Shirlene Amos MD [address] [facility] [address] [place] [phone] Dermatology 12/29/15 Franklyn Chadwick DPM [address] [facility] [address] [place] 558231 Assigned Musculoskeletal Provider 05/18/20 11/13/21 Heidi Gunn PA-C [address] [place] [address] Assigned PCP 03/08/21 05/07/22 Sukumar Villarreal MD [address] [place] [address] Assigned Musculoskeletal Provider 11/14/21 12/18/21 Burton Duncan MD 4000 [place], [place] 849841 Assigned Musculoskeletal Provider 12/19/21 07/21/23 Pat Cole APRN CNP 909 [place], [place] 785815 Nurse Practitioner 01/19/22 Yohana Estes PA-C [address] [place], [place] 829710 Assigned PCP 05/08/22 06/22/23 Letha Manzanares MD [address] [place], [place] 549215 Ophthalmology 03/25/23 Corby Centeno MD 909 [place], [place] 330165 Dermatology 03/29/23 Cynthia Dubon MD [address] [place] [address] 157365 Cardiovascular Disease 04/19/23 Letha Manzanares MD 6 [place], [place] 857045 Assigned Surgical Provider 04/23/23 Wilma Saba MD [address] [place], [place] 990384 Assigned OBGYN Provider 04/09/23 Jeannette Jean Baptiste, VACUUM CLEANER REPAIR PERSON [address] [place] [address] 474815 Assigned PCP 06/23/23 Cynthia Dubon MD [address] [place] [address] 705635 Assigned Heart and Vascular Provider 07/01/23 documented as of this encounter
--- OUTSIDE RECORDS SUMMARY | 2023-11-16 11:02 | XMS_ITS | Encounter Summary ---
Author Organization [place] Address [address] [facility] [place] [address] Care Team Providers Care Passenger Representative Name Role Phone BetteShirlene MD Unavailable [facility] Primary Care Provider Heidi Gunn PA-C Unavailable [phone] Burton Duncan MD Unavailable [phone] Pat Cole APRN CAMPGROUND ATTENDANT Unavailable [phone] Yohana Estes-C Unavailable Letha Manzanares MD Unavailable [phone] Corby Centeno MD Unavailable [phone] Cynthia Dubon MD Unavailable Letha Manzanares MD Unavailable [phone] Wilma Saba MD Unavailable [phone] Jeannette Jean Baptiste NP Unavailable [phone] Cynthia Dubon MD Unavailable [phone] System, Provider Not In Primary Care Provider Un available Reason for Visit * Reason Onset Date Comments Referral 01/12/2022 Encounter Details Date Type Department Care Team (Late st Contact Info) Description 01/12/2022 Telephone M [address] [place] [address] MabelLisa medinaKATHLEEN CAMPGROUND ATTENDANT [address] [place] [address] Referral Social History Tobacco Use Types Packs/Day Years [...] suspected to have Coronavirus/COVID-19? No / Unsure 01/12/2022 12:51 PM CDT documented as of this encounter Miscellaneous Notes * Telephone Encounter - Alida Grimm - 01/18/2022 4:10 PM CDT Phoned pt to schedule, no vm sent my chart msg. Alida Grimm Clinical Documentation Clerk [facility] [place] * Telephone Encounter - Luz Damon RN - 01/18/2022 3:03 PM CDT Please assist in scheduling a new patient appointment with Pat Cole CNP at the [facility]. LASHONDA Hanson, RN Motor Assembly Supervisor [facility] [place] * Telephone Encounter - Danielle Gil - 01/12/2022 3:22 PM CDT [facility] Call Center Phone Message May a detailed message be left on voicemail: yes Reason for Call: Pt was previously seen by Lisa Monroe in [place] in May of 2020. She is now being referred back to the pain clinic. Since she is new Pt and they are not accepting New Pt's in [place], Pt is wondering if we can make an exception and see her in [place] by Lisa. Thanks. documented in this encounter Plan of Treatment Upcoming Encounters Date Type Department Care Team (Late st Contact Info) Description 12/20/2023 10:45 AM CDT Office Visit [facility] Clinic [address] [phone] Corby Centeno MD [address] [place] [address] documented as of this encounter Visit Diagnoses Not on filedocumented in this encounter Additional Health Concerns Assessment Noted Time PHQ-9 Depression Total Score: 5 05/06/20 21 7:33 AM CORRECTIONAL OFFICER CHIEF documented as of this encounter Care Teams Passenger Representative Relationship Specialty Start Date End Date Clinic - [facility] [address] [place] [address] PCP - General Clinic 10/03/22 07/14/23 System, Provider Not In PCP - General Clinic 07/15/23 Shirlene Amos MD [address] [facility] [place] [address] Dermatology 12/29/15 Heidi Gunn PAGuillermoC [address] [place] [address] Assigned PCP 03/08/21 05/07/22 Burton Duncan MD [address] [place] [address] 092211 Assigned Musculoskeletal Provider 12/19/21 07/21/23 Pat Cole APRN CNP [address] [place] [address] 137675 Nurse Practitioner 01/19/22 Yohana Estes PA-C [address] [place] [address] 351180 Assigned PCP 05/08/22 06/22/23 Letha Manzanares MD [address] [place] [address] Ophthalmology 03/25/23 Corby Centeno MD [address] [place] [address] 520955 Dermatology 03/29/23 Cynthia Dubon MD [address] [place] [address] 091915 Cardiovascular Disease 04/19/23 Letha Manzanares MD [address] [place] [address] [phone] Assigned Surgical Provider 04/23/23 Wilma Saba MD [address] [place] [address] [phone] Assigned OBGYN Provider 04/09/23 Jeannette Jean Baptiste, AIRCRAFT POWER PLANT ASSEMBLER [address] [place] [address] 119725 Assigned PCP 06/23/23 Cynthia Dubon MD [address] [place] [address] Assigned Heart and Vascular Provider 07/01/23 documented as of this encounter
--- OUTSIDE RECORDS SUMMARY | 2023-11-16 11:02 | XMS_ITS | Encounter Summary ---
Author Organization [place] Address [address] [facility] [place] [address] Care Team Providers Care Brand Marketing Intern Name Role Phone BetteShirlene MD Unavailable Pat Cole APRN GRISTMILL OPERATOR Unavailable [phone] Letha Manzanares MD Unavailable [phone] Corby Centeno MD Unavailable [phone] Cynthia Dubon MD Unavailable [phone] Letha Manzanares MD Unavailable [phone] Wilma Saba MD Unavailable [phone] Jeannette Jean Baptiste NP Unavailable [phone] Cynthia Dubon MD Unavailable [phone] System, Provider Not In Primary Care Provider Un available Encounter Details Date Type Department Care Team (Late st Contact Info) Description 10/14/2023 [facility] Dermatologic Surgery Clinic [address] 3rd [place] [address] Mychart, [place] Social History Tobacco Use Types Packs/Day Years [...] in an abandoned building, in an overnight mcc, or couch-surfing.) Yes 02/22/2023 Are you worried [...] Description 12/20/2023 10:45 AM CDT Office Visit [facility] Allergy Clinic [address] [address] Corby Centeno MD [address] [place] [address] documented as of this encounter Visit Diagnoses Not on filedocumented in this encounter Additional Health Concerns Assessment Noted Time PHQ-9 Depression Total Score: 1 04/07/20 23 7:51 AM CIGARETTE LIGHTER REPAIRER documented as of this encounter Care Teams Brand Marketing Intern Relationship Specialty Start Date End Date System, Provider Not In PCP - General Clinic 07/15/23 Shirlene Amos MD [address] [place] [address] [place] [address] Dermatology 12/29/15 Pat Cole APRN CNP [address] [place] [address] [phone] Nurse Practitioner 01/19/22 Letha Manzanares MD [address] [place] [address] [phone] Ophthalmology 03/25/23 Corby Centeno MD [address] [place] [address] 800745 Dermatology 03/29/23 Cynthia Dubon MD [address] [place] [address] 969675 Cardiovascular Disease 04/19/23 Letha Manzanares MD [address] [place] [address] 091085 Assigned Surgical Provider 04/23/23 Wilma Saba MD [address] [place], [place] [address] [address] [address] Assigned OBGYN Provider 04/09/23 Jeannette Jean Baptiste, SERVICE GREETER [address] [place] [address] 958625 Assigned PCP 06/23/23 Cynthia Dubon MD [address] [place] [address] Assigned Heart and Vascular Provider 07/01/23 documented as of this encounter
--- OUTSIDE RECORDS SUMMARY | 2023-11-16 11:03 | XMS_ITS | Encounter Summary ---
Author Organization [place] Address [address] [facility] [place] [address] Care Team Providers Care Industrial Painter Name Role Phone BetteShirlene MD Unavailable [phone] Manju Crooks CONTROL BOARD OPERATOR CNM [facility]available [facility] Provider Zaira Queen APRN SUPERVISOR GRINDING Unavailable Franklyn Chadwick DPM Unavailable [phone] Eva Echols DO Unavailable [phone] Heidi Gunn PA-C Unavailable [phone] Sukumar Villarreal MD Unavailable [phone] Burton Duncan MD Unavailable [phone] Pat Cole APRN SUPERVISOR GRINDING Unavailable [phone] Yohana EstesC Unavailable [phone] Letha Manzanares MD Unavailable [phone] Corby Centeno MD Unavailable Cynthia Dubon MD Unavailable [phone] Letha Manzanares MD Unavailable [phone] Wilma Saba MD Unavailable Markel Jeannettedarian Gonzales NP Unavailable Cynthia Dubon MD Unavailable [phone] System, Provider Not In Primary Care Provider Un available Reason for Referral * Diagnostic Imaging CT Scan (Routine) - Closed Specialty Diagnoses / Procedures Referred By Contmoises t Referred To Contact Radiology. Diagnoses LUQ abdominal pain Procedures CT Abdomen Pelvis w Contrast Zaira Queen APRN SUPERVISOR GRINDING [address] [place] [address] [address] Scan [address] [place] [address] Referral ID Status Reason Start Date Expiration Date Visits Re quested Visits Authorized [id number] Closed 08/25/2020 08/25/2021 1 1 Encounter Details Date Type Department Care Team (Late st Contact Info) Description 08/25/2020 MyC Medical Advice [address] [place] [address] Zaira Queen APRN SUPERVISOR GRINDING [address] [place] [address] LUQ abdominal pain (Primary Dx) Social History Tobacco Use Types Packs/Day Years Used Date Smoking Tobacco: Every Day Cigarettes 0.5 10 Smokeless Tobacco: Never Alcohol Use Standard Drinks/Week Comments No 0 (1 standard drink = 0.6 oz pur e alcohol) PHQ-2 Answer Date Recorded PHQ-2 Total Score [...] have Coronavirus / COVID-19? No / Unsure 08/27/2020 8:15 AM CDT documented as of this encounter Miscellaneous Notes * Telephone Encounter - Delaney Knott CMA - 08/25/2020 1:18 PM CDT Will route to to place CT order for patient. Delaney Ibarra CMA (AANV) * Telephone Encounter - Rylie Campbell - 08/25/2020 10:58 AM CDT Replied via [facility]. Rylie Campbell [facility] documented in this encounter Plan of Treatment Upcoming Encounters Date Type Department Care Team (Late st Contact Info) Description 12/20/2023 10:45 AM CDT Office Visit [facility] [address] [address] Corby Centeno MD [address] [place] [address] documented as of this encounter Results * CT Abdomen Pelvis w Contrast (08/26/2020 10:26 AM CDT) Anatomical Region Laterality Modality Abdomen/Pelvis, SUBRAD CT MADELEINE DY, UMP CT ABDOMEN PELVIS, RAD CT Computed Tomography Impressions 08/26/2020 12:06 PM CDT IMPRESSION: 1. ??Postoperative changes status post cholecystectomy and appendectomy. 2. ??Mild prominence of the main pancreatic duct without evidence for choledocholithiasis or mass in the head of the pancreas. This is of uncertain clinical significance and etiology. 3. ??The uterus heterogeneously enhances which could represent multiple tiny fibroids scattered throughout the uterine myometrium. Definite discrete fibroids are not well seen. 4. ??Collapsing cyst left ovary. 5. ??Etiology for patient's left upper abdominal pain is not definitely identified on this study. JACE HOWARD MD Narrative 08/26/2020 12:[address] ABDOMEN/PELVIS WITH CONTRAST August 26, 2020 10:26 AM CLINICAL HISTORY: Left upper quadrant abdominal pain. Ongoing moderate to severe, LUQ pain not alleviated after bowel clean-out. TECHNIQUE: CT scan of the abdomen and pelvis was performed following injection of IV contrast. Multiplanar reformats were obtained. Dose reduction techniques were used. CONTRAST: 90 mL Isovue 370. COMPARISON: None. FINDINGS: LOWER CHEST: Normal. HEPATOBILIARY: Status post cholecystectomy. Liver enhances normally. No biliary ductal dilatation is seen. There is a subtle density in the head of the pancreas (image 51 series 3) measuring up to 0.2 cm likely representing pancreatic head calcification or vascular calcification. This is external to the ducts and does not represent choledocholithiasis. No other evidence for choledocholithiasis is seen. PANCREAS: Prominence of the main pancreatic duct measuring up to 0.4 cm in diameter in the neck of the pancreas. No choledocholithiasis or mass in the head of the pancreas is seen. The pancreas otherwise enhances normally. No evidence for acute pancreatitis is identified. SPLEEN: Normal. ADRENAL GLANDS: Normal. KIDNEYS/BLADDER: Normal. BOWEL: Appendix is absent, corresponding with surgical history. The colon is of normal caliber without pericolonic inflammatory change to suggest acute diverticulitis. Small bowel is of normal caliber and appearance. The stomach contains a moderate amount of fluid and air, but is otherwise grossly unremarkable. PELVIC ORGANS: Uterus heterogeneously enhances which could represent multiple small fibroids in the uterus. Discrete fibroids are not well seen. There is a probable collapsing dominant follicle in the left ovary measuring up to 2.8 cm in diameter. This has an enhancing thickened rim. The left ovary is otherwise normal in appearance. Right ovary is grossly within normal limits. ADDITIONAL FINDINGS: No adenopathy, free fluid, or free air is seen in the peritoneal cavity. Aorta is grossly normal in appearance. MUSCULOSKELETAL: Degenerative changes are seen in the lower lumbar spine at L5-S1. No aggressive osseous lesions or acute osseous fractures are identified. Procedure Note Jace Howard MD - 08/26/2020 CT ABDOMEN/PELVIS WITH CONTRAST August 26, 2020 10:26 AM CLINICAL HISTORY: Left upper quadrant abdominal pain. Ongoing moderate to severe, LUQ pain not alleviated after bowel clean-out. TECHNIQUE: CT scan of the abdomen and pelvis was performed following injection of IV contrast. Multiplanar reformats were obtained. Dose reduction techniques were used. CONTRAST: 90 mL Isovue 370. COMPARISON: None. FINDINGS: LOWER CHEST: Normal. HEPATOBILIARY: Status post cholecystectomy. Liver enhances normally. No biliary ductal dilatation is seen. There is a subtle density in the head of the pancreas (image 51 series 3) measuring up to 0.2 cm likely representing pancreatic head calcification or vascular calcification. This is external to the ducts and does not represent choledocholithiasis. No other evidence for choledocholithiasis is seen. PANCREAS: Prominence of the main pancreatic duct measuring up to 0.4 cm in diameter in the neck of the pancreas. No choledocholithiasis or mass in the head of the pancreas is seen. The pancreas otherwise enhances normally. No evidence for acute pancreatitis is identified. SPLEEN: Normal. ADRENAL GLANDS: Normal. KIDNEYS/BLADDER: Normal. BOWEL: Appendix is absent, corresponding with surgical history. The colon is of normal caliber without pericolonic inflammatory change to suggest acute diverticulitis. Small bowel is of normal caliber and appearance. The stomach contains a moderate amount of fluid and air, but is otherwise grossly unremarkable. PELVIC ORGANS: Uterus heterogeneously enhances which could represent multiple small fibroids in the uterus. Discrete fibroids are not well seen. There is a probable collapsing dominant follicle in the left ovary measuring up to 2.8 cm in diameter. This has an enhancing thickened rim. The left ovary is otherwise normal in appearance. Right ovary is grossly within normal limits. ADDITIONAL FINDINGS: No adenopathy, free fluid, or free air is seen in the peritoneal cavity. Aorta is grossly normal in appearance. MUSCULOSKELETAL: Degenerative changes are seen in the lower lumbar spine at L5-S1. No aggressive osseous lesions or acute osseous fractures are identified. IMPRESSION: 1. Postoperative changes status post cholecystectomy and appendectomy. 2. Mild prominence of the main pancreatic duct without evidence for choledocholithiasis or mass in the head of the pancreas. This is of uncertain clinical significance and etiology. 3. The uterus heterogeneously enhances which could represent multiple tiny fibroids scattered throughout the uterine myometrium. Definite discrete fibroids are not well seen. 4. Collapsing cyst left ovary. 5. Etiology for patient's left upper abdominal pain is not definitely identified on this study. JACE HOWARD MD Zaira Queen APRN, CNP IMG C T ORDERABLES documented in this encounter Visit Diagnoses Diagnosis LUQ abdominal pain- Primary Abdominal pain, left upper quadrant LUQ abdominal pain Abdominal pain, left upper quadrant documented in this encounter Additional Health Concerns Assessment Noted Time PHQ-9 Depression Total Score: 1 08/21/19 21 7:02 AM CDT documented as of this encounter Care Teams Industrial Painter Relationship Specialty Start Date End Date Clinic - [facility] [address] [place] [address] PCP - General Clinic 10/03/22 07/14/23 System, Provider Not In PCP - General Clinic 07/15/23 Shirlene Amos MD [address] [facility] [place] [address] Dermatology 12/29/15 Manju Crooks APRN CN Assigned OBGYN Provider 03/21/20 09/19/21 Zaira Queen APRN SUPERVISOR GRINDING [address] [place] [address] Assigned PCP 05/04/20 03/07/21 Franklyn Chadwick DPM [address] [facility] [place] [place] 457451 Assigned Musculoskeletal Provider 05/18/20 11/13/21 [place] [address] [place] [address] Assigned Gastroenterology Provider 11/23/20 12/20/20 Heidi Gunn PA-C [address] [place] [address] Assigned PCP 03/08/21 05/07/22 Sukumar Villarreal MD [address] [place] [address] Assigned Musculoskeletal Provider 11/14/21 12/18/21 Burton [place] MD [address] [place] [address] Assigned Musculoskeletal Provider 12/19/21 07/21/23 Pat Cole APRN SUPERVISOR GRINDING [address] [place] [address] [phone] Nurse Practitioner 01/19/22 Yohana Estes PA-C [address] [place] [address] Assigned PCP 05/08/22 06/22/23 Letha Manzanares MD [address] [place] [address] [id number] MD Anthony 03/25/23 Corby Centeno MD [address] [place] [address] [id number] Dermatology 03/29/23 Cynthia Dubon MD [address] [place] [address] Cardiovascular Disease 04/19/23 Letha Manzanares MD [address] [place] [address] Assigned Surgical Provider 04/23/23 Wilma Saba MD [address] [place] [address] Assigned OBGYN Provider 04/09/23 Jeannette Jean Baptiste NP [address] 150785 Assigned PCP 06/23/23 Cynthia Dubon MD [address] [place] [address] [id number] Assigned Heart and Vascular Provider 07/01/23 documented as of this encounter
--- OUTSIDE RECORDS SUMMARY | 2023-11-16 11:03 | XMS_ITS | Encounter Summary ---
Author Organization [place] Address [address] [facility] [place] [address] Care Team Providers Care Bag Turner Name Role Phone BetteShirlene MD Unavailable [phone] Manju Crooks YARN TEXTURING MACHINE OPERATOR CNM Unavailable [facility] Provider Zaira Queen APRN BIG DATA PLATFORM ARCHITECT Unavailable Franklyn Chadwick DPM Unavailable [phone] Eva Echols DO Unavailable [phone] Heidi Gunn PA-C Unavailable [phone] Sukumar Villarreal MD Unavailable [phone] Burton Duncan MD Unavailable [phone] Pat Cole APRN BIG DATA PLATFORM ARCHITECT Unavailable [phone] Yohana EstesC Unavailable [phone] Letha Manzanares MD Unavailable [phone] Corby Centeno MD Unavailable [phone] Cynthia Dubon MD Unavailable [phone] Letha Manzanares MD Unavailable [phone] Wilma Saba MD Unavailable [phone] MarkelJeannette Janet ORTIZ Unavailable [phone] Cynthia Dubon MD Unavailable [phone] System, Provider Not In Primary Care Provider Un available Reason for Referral * Diagnostic Imaging Ultrasound (Routine) - Closed Specialty Diagnoses / Procedures Referred By Contac t Referred To Contact Diagnoses Pelvic cramping Procedures US Pelvic Complete with Transvaginal Zaira Queen APRN BIG DATA PLATFORM ARCHITECT [address] [place] [address] Referral ID Status Reason Start Date Expiration Date Visits Re quested Visits Authorized [id number] Closed 08/28/2020 08/28/2021 1 1 * (Routine) - Closed Specialty Diagnoses / Procedures Referred By Sasha t Referred To Contact Gastroenterology Diagnoses LUQ abdominal pain Epigastric pain Zaira Queen APRN BIG DATA PLATFORM ARCHITECT [address] [place] [address] Referral ID Status Reason Start Date Expiration Date Visits Re quested Visits Authorized [id number] Closed 08/27/2020 08/27/2021 1 1 Scheduling Instructions If EUS or ERCP is selected, it requires clinical review prior to scheduling. Question Answer Procedure: Upper Endoscopy Upper Endoscopy Type: EGD Upper Endoscopy Sedation: Conscious/Moderate Upper Endoscopy Reason for Procedure: LUQ/epigastric pain after eating, CT unremarkable Preferred Location: [facility] Scheduling Instructions: If you have not heard from the scheduling office within 2 business days, please call [phone]. Comments Please be aware that coverage of these services is subject to the terms and limitations of your health insurance plan. Call member services at your health plan with any benefit or coverage questions. If you have not heard from the scheduling office within 2 business days, please call [phone]. Encounter Details Date Type Department Care Team ([facility] Contact Info) Description 08/26/2020 MyC Medical Advice [facility] [address] [facility] [address] [place] [id number] Zaira Queen, KATHLEEN BIG DATA PLATFORM ARCHITECT [address] [place] [address] LUQ abdominal pain (Primary Dx); Epigastric pain; Nausea; Pelvic cramping Social History Tobacco Use Types Packs/Day Years [...] have Coronavirus / COVID-19? No / Unsure 08/29/2020 8:08 AM CDT documented as of this encounter Plan of Treatment Upcoming Encounters Date Type Department Care Team ([facility] Contact Info) Description 12/20/2023 10:45 AM CDT Office Visit [facility] [address] [address] Corby Centeno MD [address] [place] [address] [phone] Scheduled Referrals Name Type Priority Associated Diagnoses Orde r Schedule GASTROENTEROLOGY ADULT REF PROCEDURE ONLY Referral Routine LUQ abdominal pain Epigastric pain Expected: 08/27/2020, Expires: 08/27/2021 documented as of this encounter Results * US Pelvic Complete with Transvaginal (08/29/2020 9:05 AM CDT) Anatomical Region Laterality Modality Abdomen/Pelvis Ultrasound Impressions 08/29/2020 6:52 PM CDT IMPRESSION: 1. ??Probable dominant follicle in the left ovary. 2. ??Fibroid uterus. 3. ??No other abnormalities are identified. No other etiology for patient's symptoms is seen. JACE HOWARD MD Narrative 08/29/2020 6:52 PM CDT US PELVIC COMPLETE WITH TRANSVAGINAL 08/29/2020 9:05 AM CLINICAL HISTORY: Pelvic cramping, nausea. Left lower quadrant pain. TECHNIQUE: Transabdominal scans were performed. Endovaginal ultrasound was performed to better visualize the adnexa. COMPARISON: CT abdomen and pelvis dated 08/26/2020. Pelvic ultrasound dated 10/30/2013. FINDINGS: UTERUS: 6.5 x 3.1 x 3.8 cm. Superior fundal heterogeneously hypoechoic structure measuring 1.0 x 1.0 x 0.8 cm and another in the anterior body measures 1.0 x 1.0 x 0.8 cm and are consistent with fibroids. Uterus is otherwise of normal morphology and appearance. ENDOMETRIUM: 8 mm. Normal smooth endometrium. RIGHT OVARY: 2.7 x 1.6 x 1.3 cm. Right ovary is normal in appearance. Color and Doppler spectral analysis demonstrate arterial and venous waveforms in the right ovary. LEFT OVARY: 3.3 x 1.7 x 2.6 cm. Simple appearing cystic structure in the left ovary measures 2.0 x 1.4 x 2.0 cm and corresponds to the probable collapsing cyst seen on the prior CT dated 08/26/2020. This is most consistent with a dominant follicle. Color and Doppler spectral analysis demonstrate arterial and venous waveforms in the left ovary. No significant free fluid. Procedure Note Jace Howard MD - 08/29/2020 US PELVIC COMPLETE WITH TRANSVAGINAL 08/29/2020 9:05 AM CLINICAL HISTORY: Pelvic cramping, nausea. Left lower quadrant pain. TECHNIQUE: Transabdominal scans were performed. Endovaginal ultrasound was performed to better visualize the adnexa. COMPARISON: CT abdomen and pelvis dated 08/26/2020. Pelvic ultrasound dated 10/30/2013. FINDINGS: UTERUS: 6.5 x 3.1 x 3.8 cm. Superior fundal heterogeneously hypoechoic structure measuring 1.0 x 1.0 x 0.8 cm and another in the anterior body measures 1.0 x 1.0 x 0.8 cm and are consistent with fibroids. Uterus is otherwise of normal morphology and appearance. ENDOMETRIUM: 8 mm. Normal smooth endometrium. RIGHT OVARY: 2.7 x 1.6 x 1.3 cm. Right ovary is normal in appearance. Color and Doppler spectral analysis demonstrate arterial and venous waveforms in the right ovary. LEFT OVARY: 3.3 x 1.7 x 2.6 cm. Simple appearing cystic structure in the left ovary measures 2.0 x 1.4 x 2.0 cm and corresponds to the probable collapsing cyst seen on the prior CT dated 08/26/2020. This is most consistent with a dominant follicle. Color and Doppler spectral analysis demonstrate arterial and venous waveforms in the left ovary. No significant free fluid. IMPRESSION: 1. Probable dominant follicle in the left ovary. 2. Fibroid uterus. 3. No other abnormalities are identified. No other etiology for patient's symptoms is seen. JACE HOWARD MD Zaira Queen APRN [facility] S ORDERABLES documented in this encounter Visit Diagnoses Diagnosis LUQ abdominal pain- Primary Abdominal pain, left upper quadrant Epigastric pain Abdominal pain, epigastric Nausea Nausea alone Pelvic cramping Unspecified symptom associated with female genital organs Pelvic cramping Unspecified symptom associated with female genital organs documented in this encounter Additional Health Concerns Assessment Noted Time PHQ-9 Depression Total Score: 1 08/21/19 21 7:02 AM CDT documented as of this encounter Care Teams Bag Turner Relationship Specialty Start Date End Date Clinic - [facility] [address] [place] [address] PCP - General Clinic 10/03/22 07/14/23 System, Provider Not In PCP - General Clinic 07/15/23 Shirlene Amos MD [address] [facility] [place] [address] Dermatology 12/29/15 Manju Crooks APRN CNM Assigned OBGYN Provider 03/21/20 09/19/21 Zaira Queen APRN BIG DATA PLATFORM ARCHITECT [address] [place] [address] Assigned PCP 05/04/20 03/07/21 Franklyn Chadwick DPM [address] [place] [address] [place] [address] Assigned Musculoskeletal Provider 05/18/20 11/13/21 [place] [address] [place] [address] Assigned Gastroenterology Provider 11/23/20 12/20/20 Heidi Gunn PA-C [address] [place] [address] Assigned PCP 03/08/21 05/07/22 Sukumar Villarreal MD [address] [place] [address] Assigned Musculoskeletal Provider 11/14/21 12/18/21 Burton Duncan MD [address] [place] [address] Assigned Musculoskeletal Provider 12/19/21 07/21/23 Pat Cole APRN BIG DATA PLATFORM ARCHITECT [address] [place] [address] Nurse Practitioner 01/19/22 Yohana Estes PA-C [address] [place] [address] Assigned PCP 05/08/22 06/22/23 Letha Manzanares MD [address] [place] [address] Ophthalmology 03/25/23 Corby Centeno MD [address] [place] [address] 133425 Dermatology 03/29/23 Cynthia Dubon MD [address] [place] [address] [id number] Cardiovascular Disease 04/19/23 Letha Manzanares MD [address] [place] [address] [phone] Assigned Surgical Provider 04/23/23 Wilma Saba MD [address] [place], [place] [address] Assigned OBGYN Provider 04/09/23 Jeannette Jean Baptiste, RIGHT OF WAY BUYER [address] [place] [address] [id number] Assigned PCP 06/23/23 Cynthia Dubon MD [address] [place] [address] [id number] Assigned Heart and Vascular Provider 07/01/23 documented as of this encounter
--- OUTSIDE RECORDS SUMMARY | 2023-11-16 11:03 | XMS_ITS | Encounter Summary ---
Author Organization [place] Address [address] [facility] [place] [address] Care Team Providers Care Practice Management Consultant Name Role Phone Olga Sandoval MD Primary Care Provider [phone] Shirlene Amos MD Unavailable [phone] Pat Mayorga PA-C Unavailable +[phone] Pat Mayorga PA-C Unavailable +[phone] [facility] Primary Care Provider Heidi Gunn-C Primary Care Provider + [phone] Heidi Gunn-C Unavailable [phone] Manju Crooks OPTICS TEST TECHNICIAN CNM [facility] Primary Care Provider Zaira Queen APRN INSTITUTIONAL RESEARCH DIRECTOR Unavailable Franklyn Chadwick DPM Unavailable [phone] Eva Echols DO Unavailable +[phone] Heidi Gunn Edis STARKEYC Unavailable +[phone] Sukumar Villarreal MD Unavailable +[phone] Burton Duncan MD Unavailable +[phone] Pat Cole APRN INSTITUTIONAL RESEARCH DIRECTOR Unavailable Yohana Estes PA-C Unavailable Letha Manzanares MD Unavailable +[phone] Corby Centeno MD Unavailable +[phone] Cynthia Dubon MD Unavailable +[phone] Letha Manzanares MD Unavailable [phone] iWlma Saba MD Unavailable +[phone] Jeannette Jean Baptiste NP Unavailable +[phone] Cynthia Dubon MD Unavailable System, Provider Not In Primary Care Provider Un available Reason for Visit * Reason Onset Date Comments Patient Request for Note/Letter 07/06/2018 Encounter Details Date Type Department Care Team (Late st Contact Info) Description 07/06/[address] [place] [address] [place] [address] [place] [address] [place] [address] Patient Request for Note/Letter Social History Tobacco Use Types Packs/Day Years Used Date Smoking Tobacco: Every Day Cigarettes 0.5 10 Smokeless Tobacco: Never Alcohol Use Standard Drinks/Week Comments No 0 (1 standard drink = 0.6 oz pure alcohol) occasional- last drink was last night PHQ-2 Answer Date Recorded PHQ-2 Score 0 06/28/2018 Sex and Gender Information Value Date Recorded Sex Assigned at Female 09/29/2020 3:49 PM CDT Gender Identity Female 09/29/2020 3:49 PM CDT Sexual Orientation Straight 09/29/2020 3: 49 PM CDT documented as of this encounter Miscellaneous Notes * Telephone Encounter - Melanie Squires - 07/07/2018 8:34 AM CST Updated work letter and faxed to [phone] 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 Please fax this to [phone] attyessy junior. Please call pt with any questions. 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 documented as of this encounter Care Teams Practice Management Consultant Relationship Specialty Start Date End Date Olga Sandoval MD [address] [place] [address] PCP - General Family Practice 06/26/14 06/14/19 Pat Mayorga PA-C [address] [place] [address] [place] [address] PCP - Assigned PCP 07/02/18 08/01/18 [facility] [address] [place] [address] PCP - General 06/15/19 06/19/19 Heidi Gunn PA-C [address] [place] [address] PCP - General Physician Child Care Giver - Medical 06/20/19 04/29/20 Clinic - [facility] [address] [place] [address] PCP - General Clinic 10/03/22 07/14/23 System, Provider Not In PCP - General Clinic 07/15/23 Shirlene Amos MD [facility] [place] [address] Dermatology 12/29/15 Pat Mayorga PA-C [address] [place] [address] [place] [address] Assigned PCP 07/02/18 06/23/19 Heidi Gunn PA-C [address] [place] [address] Assigned PCP 06/24/19 05/03/20 Manju Crooks APRN CNM Assigned OBGYN Provider 03/21/20 09/19/21 Zaira Queen APRN INSTITUTIONAL RESEARCH DIRECTOR [address] [place] [address] Assigned PCP 05/04/20 03/07/21 Franklyn Chadwick DPM [address] [facility] [facility] [address] [place], [place] [address] Assigned Musculoskeletal Provider 05/18/20 11/13/21 [place] [address] [place] [address] Assigned Gastroenterology Provider 11/23/20 12/20/20 Heidi Gunn PA-C [address] [place] [address] Assigned PCP 03/08/21 05/07/22 Sukumar Villarreal MD [address] [place] [address] Assigned Musculoskeletal Provider 11/14/21 12/18/21 Burton Duncan MD [address] [place] [address] [phone] Assigned Musculoskeletal Provider 12/19/21 07/21/23 Pat Cole APRN CNP [address] [place] [address] 049505 Nurse Practitioner 01/19/22 Yohana Estes PA-C [address] [place] [address] 668120 Assigned PCP 05/08/22 06/22/23 Letha Manzanares MD [address] [place], [place] 397865 MD Anthony 03/25/23 Corby Centeno MD [address] [place] [address] [id number] Dermatology 03/29/23 Cynthia Dubon MD 9 [place], [place] 756745 Cardiovascular Disease 04/19/23 Letha Manzanares MD 6 [place], [place] 718845 Assigned Surgical Provider 04/23/23 Wilma Saba MD [address] [place] [address] [place] [address] [id number] Assigned OBGYN Provider 04/09/23 Jeannette Jean Baptiste NP [address] [place] [address] Assigned PCP 06/23/23 Cynthia Dubon MD 9 [place] [address] Assigned Heart and Vascular Provider 07/01/23 documented as of this encounter
--- OUTSIDE RECORDS SUMMARY | 2023-11-16 11:03 | XMS_ITS | Encounter Summary ---
Author Organization [place] Address [address] [facility] [place] [address] Care Team Providers Care Community Engagement Leader Name Role Phone Olga Sandoval MD Primary Care Provider Shirlene Amos MD Unavailable [phone] Pat Mayorga PA-C Unavailable +[phone] [place] [address] Primary Care Provider Heidi GunnC Primary Care Provider + [phone] Heidi Gunn-C Unavailable [phone] Manju Crooks APRN CNM Unavailable [facility] Care Provider Zaira Queen APRN COMMUNITY DEVELOPMENT MANAGER Unavailable Franklyn Chadwick DPM Unavailable [phone] Eva Echols DO Unavailable +[phone] Heidi Gunn PA-C Unavailable [phone] Sukumar Villarreal MD Unavailable [phone] Burton Duncan MD Unavailable [phone] Pat Cole APRN COMMUNITY DEVELOPMENT MANAGER Unavailable [phone] Yohana Estes PA-C Unavailable [phone] Letha Manzanares MD Unavailable [phone] Corby Centeno MD Unavailable [phone] Cynthia Dubon MD Unavailable [phone] Letha Manzanares MD Unavailable [phone] Wilma Saba MD Unavailable [phone] Jeannette Jean Baptiste NP Unavailable [phone] Cynthia Dubon MD Unavailable [phone] System, Provider Not In Primary Care Provider Un available Reason for Visit * Reason Onset Date Comments Forms 08/07/2018 Encounter Details Date Type Department Care Team (Late st Contact Info) Description 08/07/[address] [place] [address] [place] [address] [address] Forms Social History Tobacco Use Types Packs/Day Years [...] encounter Miscellaneous Notes * Telephone Encounter - Aggie Shirley - 08/07/2018 10:36 AM CDT Reason for Call: Form, our goal is to have forms completed with 72 hours, however, some forms may require a visit or additional information. Type of letter, form or note: medical Who is the form from?: [facility] (if other please explain) Where did the form come from: form was faxed in What clinic location was the form placed at?: [facility] - [phone] Where the form was placed: [facility] What number is listed as a contact on the form?: [phone] Additional comments: form faxed to Dr Christian. 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 documented as of this encounter Care Teams Community Engagement Leader Relationship Specialty Start Date End Date Olga Sandoval MD [address] [place] [address] PCP - General Family Practice 06/26/14 06/14/19 [facility] [address] [place] [address] PCP - General 06/15/19 06/19/19 Heidi Gunn, PAGuillermoC [address] [place] [address] PCP - General Physician Nuclear Weapons Custodian - Medical 06/20/19 04/29/20 Clinic - [facility] [address] [place] [address] PCP - General Clinic 10/03/22 07/14/23 System, Provider Not In PCP - General Clinic 07/15/23 Shirlene Amos MD [address] [facility] [place] [address] Dermatology 12/29/15 Pat Mayorga PA-C [address] [facility] [place] [address] Assigned PCP 07/02/18 06/23/19 Heidi Gunn PA-C [address] [place] [address] Assigned PCP 06/24/19 05/03/20 Manju Crooks APRN CNM Assigned OBGYN Provider 03/21/20 09/19/21 Zaira Queen APRN COMMUNITY DEVELOPMENT MANAGER [address] [place] [address] Assigned PCP 05/04/20 03/07/21 Franklyn Chadwick DPM [address] [facility] [place] [address] Assigned Musculoskeletal Provider 05/18/20 11/13/21 [place] [address] [place] [address] Assigned Gastroenterology Provider 11/23/20 12/20/20 Heidi Gunn PA-C [address] [place] [address] Assigned PCP 03/08/21 05/07/22 Sukumar Villarreal MD [address] [place], [place] 844742 Assigned Musculoskeletal Provider 11/14/21 12/18/21 Burton Duncan MD [address] [place] [address] 448451 Assigned Musculoskeletal Provider 12/19/21 07/21/23 Pat Cole APRN COMMUNITY DEVELOPMENT MANAGER [address] [place] [address] [id number] Nurse Practitioner 01/19/22 Yohana Estes PA-C [address] [place] [address] 351950 Assigned PCP 05/08/22 06/22/23 Letha Manzanares MD [address] [place] [address] [phone] Ophthalmology 03/25/23 Corby Centeno MD [address] [place] [address] 805235 Dermatology 03/29/23 Cynthia Dubon MD [address] [place] [address] [phone] Cardiovascular Disease 04/19/23 Letha Manzanares MD [address] [place] [address] Assigned Surgical Provider 04/23/23 Wilma Saba MD [address] [place], [place] 220404 Assigned OBGYN Provider 04/09/23 Jeannette Jean Baptiste NP [address] 367005 Assigned PCP 06/23/23 Cynthia Dubon MD [address] [place] [address] Assigned Heart and Vascular Provider 07/01/23 documented as of this encounter
--- OUTSIDE RECORDS SUMMARY | 2023-11-16 11:03 | XMS_ITS | Encounter Summary ---
Author Organization [place] Address [address] [facility] [place] [address] Care Team Providers Care Senior Front End Web Developer Name Role Phone BetteShirlene MD Unavailable [phone] Heidi GunnC Primary Care Provider [phone] Heidi Gunn PA-C Unavailable +[phone] Manju Crooks SLINGER SEQUINS CNM Unavailable [facility] Primary Care Provider Zaira Queen SLINGER SEQUINS BLOCK MECHANIC Unavailable Franklyn Chadwick DPM Unavailable +[phone] Eva Echols DO Unavailable +[phone] Heidi Gunn PA-C Unavailable [phone] Sukumar Villarreal MD Unavailable +[phone] Burton Duncan MD Unavailable +[phone] Pat Cole APRN BLOCK MECHANIC Unavailable +[phone] Yohana Estes PA-C Unavailable [phone] Letha Manzanares MD Unavailable [phone] Corby Centeno MD Unavailable Cynthia Dubon MD Unavailable [phone] Letha Manzanares MD Unavailable [phone] Wilma Saba MD Unavailable [phone] Jeannette Jean Baptiste NP Unavailable +[phone] Cynthia Dubon MD Unavailable [phone] System, Provider Not In Primary Care Provider Un available Reason for Visit * Reason Onset Date Comments Outreach 07/06/2019 [facility] Cervical/PAP ATT 1 Encounter Details Date Type Department Care Team (Late st Contact Info) Description 07/06/2019 Telephone [facility] [address] [place] [address] Heidi Gunn PA-C [address] [place] [address] Outreach (PHS Cervical/PAP ATT 1) Social History Tobacco Use Types Packs/Day Years Used Date Smoking Tobacco: Every Day Cigarettes 0.5 10 Smokeless Tobacco: Never Alcohol Use Standard Drinks/Week Comments No 0 (1 standard drink = 0.6 oz pur e alcohol) PHQ-2 Answer Date Recorded PHQ-2 Score 0 06/28/2018 Sex and Gender Information Value Date Recorded Sex Assigned at Female 09/29/2020 3:49 PM CDT Gender Identity Female 09/29/2020 3:49 PM CDT Sexual Orientation Straight 09/29/2020 3: 49 PM CDT documented as of this encounter Miscellaneous Notes * Telephone Encounter - Shirlene Mendoza - 07/06/2019 2:32 PM CST 07/06/2019 Call Regarding Preventive Health Screening Cervical/PAP Attempt 1 Message on voicemail Comments: 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 documented in this encounter Plan of Treatment Upcoming Encounters Date Type Department Care Team (Late st Contact Info) Description 12/20/2023 10:45 AM CDT Office Visit [facility] [address] [phone] Corby Centeno MD [address] [place] [address] documented as of this encounter Visit Diagnoses Not on filedocumented in this encounter Additional Health Concerns Assessment Noted Time PHQ-9 Depression Total Score: 4 04/13/20 16 7:37 AM BORING MILL OPERATOR documented as of this encounter Care Teams Senior Front End Web Developer Relationship Specialty Start Date End Date Heidi Gunn PA-C [address] [place] [address] PCP - General Physician Table Assembler Metal - Medical 06/20/19 04/29/20 [facility] [address] [place] [address] PCP - General Clinic 10/03/22 07/14/23 System, Provider Not In PCP - General Clinic 07/15/23 Shirlene Amos MD [address] [facility] [place] [address] Dermatology 12/29/15 Heidi Gunn PA-C [address] [place] [address] Assigned PCP 06/24/19 05/03/20 Manju Crooks APRN CNM Assigned OBGYN Provider 03/21/20 09/19/21 Zaira Queen APRN BLOCK MECHANIC [address] [place] [address] Assigned PCP 05/04/20 03/07/21 Franklyn Chadwick DPM [address] [place], [place] 154831 Assigned Musculoskeletal Provider 05/18/20 11/13/21 [place] [address] [place] [address] Assigned Gastroenterology Provider 11/23/20 12/20/20 Heidi Gunn PA-C [address] [place] [address] Assigned PCP 03/08/21 05/07/22 Sukumar Villarreal MD [address] [place] [address] Assigned Musculoskeletal Provider 11/14/21 12/18/21 Burton Duncan MD [address] [place] [address] Assigned Musculoskeletal Provider 12/19/21 07/21/23 Pat Cole APRN BLOCK MECHANIC [address] [place] [address] 047715 Nurse Practitioner 01/19/22 Yhoana Estes PA-C [address] [place] [address] 538090 Assigned PCP 05/08/22 06/22/23 Letha Manzanares MD 6 [place], [place] 577815 MD Ophthalmology 03/25/23 Corby Centeno MD [address] [place] [address] 861735 MD Dermatology 03/29/23 Cynthia Dubon MD [address] [place] [address] 804895 Cardiovascular Disease 04/19/23 Letha Manzanares MD [address] [place] [address] 063685 Assigned Surgical Provider 04/23/23 Wilma Saba MD [address] [place], [place] 132174 Assigned OBGYN Provider 04/09/23 Jeannette Jean Baptiste, DIRECTOR OF CATEGORY MANAGEMENT [address] [phone] Assigned PCP 06/23/23 Cynthia Dubon MD [address] [place] [address] 880865 Assigned Heart and Vascular Provider 07/01/23 documented as of this encounter
--- NOTE | 2023-11-16 12:27 | CRLHL7_ITS ---
For Patients: As a result of the Century Cures Act, medical imaging exams and procedure reports are released immediately into your electronic medical record. You may view this report before your referring provider. If you have questions, please contact your health care provider. INDICATION: Left foot pain and swelling. Injury. TECHNIQUE: Noncontrast CT of the left foot. COMPARISON: Radiographs from 11/16/2023. FINDINGS: No acute distal tibial or fibular fracture. No ankle joint effusion. The talus is intact. No acute calcaneal fracture. There is spurring of the plantar and posterior aspects of the calcaneus. Subtalar joint spaces are maintained. Osseous structures of the midfoot are intact. Metatarsal bones are intact. There is subchondral cystic change within the proximal phalanx of the great toe which likely relates to proximal surface chondromalacia. The other phalanges are intact. No localized fluid collection, space-occupying hematoma or soft tissue gas. IMPRESSION: 1. No acute fracture. 2. No malalignment. 3. No fluid collection or space-occupying hematoma. Dictated by Luis A Castañeda MD @ 11/16/2023 1:17:11 PM Please note that all CT scans at this facility use dose modulation, iterative reconstruction, and/or weight-based dosing when appropriate to reduce radiation dose to as low as reasonably achievable. Dictated by: Luis A Castañeda MD @ 11/16/2023 13:17:16 (Electronically Signed)
== END 2023-11-16 13:48 | disposition home or self-care (01) ==
PROVIDERS: Emergency Provider Family Medicine; PCP Family Medicine
DX: S93.402A Sprain of unspecified ligament of left ankle, initial encounter (principal); W01.0XXA Fall on same level from slipping, tripping and stumbling without subsequent striking against object, initial encounter
CPT/HCPCS: 73610; 73700; 99283; 99284

== ENCOUNTER 2023-12-10 19:19 | Emergency (ER) | payer MEDICAID, SELFPAY ==
[2023-12-10 19:32] VITALS: BP 125/85; PULSE 74; RESP 16; TEMP 36.5; O2SAT 99; BMI 34.9
--- NOTE | 2023-12-10 20:11 | ED_ITS ---
HPI - General Adult General Chief complaint: Abdominal Pain Stated complaint: tooth pain, vomiting, shortness of breath Time Seen by Provider: 12/10/23 20:01 History of Present Illness HPI narrative: Is a 43-year-old woman who initially comes in with feelings that she may be having abdominal pain. After visiting with her it is clear that she has dental pain on the left inferior premolar with drainage and abscess. She has no abdominal pain but does have some cramping after she has diarrhea which has increased as she continues swallow the drainage from the infected dental bed. She has had no fevers no chills no night sweats no cough no shortness of breath. She has had minimal vomiting. No other significant symptoms. Related Data Home Medications ?Medication ?Instructions ?Recorded ?Confirmed albuterol sulfate 90 mcg/actuation inhalation 05/14/23 06/01/23 aerosol inhaler (Ventolin HFA) fluticasone 100 mcg-salmeterol 50 1 ea inhalation Q12H 05/14/23 08/07/23 mcg/dose blistr powdr for inhalation (Advair Diskus) polyethylene glycol 3350 17 17 g PO DAILY 05/14/23 06/13/23 gram/dose oral powder clonidine HCl 0.3 mg tablet 0.3 mg PO TID PRN 06/01/23 08/07/23 epinephrine 0.3 mg/0.3 mL 0.3 mg IM ONCE PRN 06/01/23 08/07/23 injection, auto-injector melatonin 10 mg tablet 20 mg PO QHS PRN 06/01/23 08/07/23 ondansetron 4 mg disintegrating 4 mg PO Q8H 06/01/23 08/07/23 tablet TAB-A-NIKKI 08/07/23 methimazole 5 mg tablet 10 mg PO DAILY 08/07/23 11/16/23 trazodone 50 mg tablet mg PO 08/07/23 levocetirizine 5 mg tablet 5 mg PO QAM 11/16/23 11/16/23 Previous Rx's ?Medication ?Instructions ?Recorded blood pressure monitor #1 ea 06/01/23 hydrochlorothiazide 12.5 mg tablet 12.5 mg PO DAILY #90 tabs 06/01/23 omeprazole 40 mg capsule,delayed 40 mg PO DAILY #90 caps 06/01/23 release prazosin 1 mg capsule 1 mg PO QHS #90 caps 06/01/23 prazosin 2 mg capsule 2 mg PO QPM #90 caps 06/01/23 topiramate 25 mg tablet 25 mg PO DAILY #90 tabs 06/01/23 loperamide 2 mg capsule 2 mg PO Q6H PRN loose stool #30 06/12/23 (Anti-Diarrheal (loperamide)) caps nicotine 21 mg/24 hr daily 1 patch transdermal Q24H #30 ea 06/12/23 transdermal patch atomoxetine 80 mg capsule 80 mg PO QAM #30 caps 08/04/23 cholecalciferol (vitamin D3) 50 50 mcg PO DAILY #90 caps 08/04/23 mcg (2,000 unit) capsule gabapentin 300 mg capsule 300 mg PO QDAY #90 caps 08/04/23 multivitamin with folic acid 400 1 tab PO DAILY #90 tabs 08/04/23 mcg tablet (Tab-A-Nikki) propranolol 20 mg tablet 20 mg PO TID #120 tabs 08/04/23 trazodone 100 mg tablet 200 mg (2 x 100 mg) PO QDAY #180 08/04/23 tabs Allergies Allergy/AdvReac Type Severity Reaction Status Date / Time mold Allergy Severe Anaphylaxis Verified 12/10/23 19:31 almond Allergy Mild Hives Verified 12/10/23 19:31 loratadine [From Claritin] Allergy Mild Hives Verified 12/10/23 19:31 sumatriptan [From Imitrex] Allergy Mild Hives Verified 12/10/23 19:31 morphine AdvReac Mild Palpitation Verified 12/10/23 19:31 s Review of Systems Status of ROS: Reports: 10 or more systems reviewed and unremarkable except as noted in History and below [facility] Medical History Lower extremity edema ?R60.0 - Localized edema (ICD-10) Chronic pain ?G89.29 - Other chronic pain (ICD-10) Endometriosis ?N80.9 - Endometriosis, unspecified (ICD-10) Fatty liver ?K76.0 - Fatty (change of) liver, not elsewhere classified (ICD-10) 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 - Other stimulant abuse, in remission (ICD-10) Irregular menses ?N92.6 - Irregular menstruation, unspecified (ICD-10) Uterine fibroid ?D25.9 - Leiomyoma of uterus, unspecified (ICD-10) Thyroid nodule ?E04.1 - Nontoxic single thyroid nodule (ICD-10) Intermittent asthma ?J45.20 - Mild intermittent asthma, uncomplicated (ICD-10) GERD (gastroesophageal reflux disease) ?K21.9 - Gastro-esophageal reflux disease without esophagitis (ICD-10) Chronic constipation ?K59.09 - Other constipation (ICD-10) History of abnormal cervical Pap smear ?Z87.42 - Personal history of other diseases of the female genital tract (ICD-10) Anxiety ?F41.9 - Anxiety disorder, unspecified (ICD-10) Surgical History History of ovarian cystectomy (2001) ?Z98.890 - Other specified postprocedural states (ICD-10) ?Z87.42 - Personal history of other diseases of the female genital tract (ICD-10) History of cryosurgery (2000) ?Z98.890 - Other specified postprocedural states (ICD-10) History of appendectomy (2007) ?Z90.49 - Acquired absence of other specified parts of digestive tract (ICD- 10) History of laparoscopic cholecystectomy (2014) ?Z90.49 - Acquired absence of other specified parts of digestive tract (ICD- 10) History of esophagogastroduodenoscopy (EGD) (2020) ?Z98.890 - Other specified postprocedural states (ICD-10) History of open reduction and internal fixation (ORIF) procedure (2021) ?Z98.890 - Other specified postprocedural states (ICD-10) History of colonoscopy (2013) ?Z98.890 - Other specified postprocedural states (ICD-10) Family History Mother Heart failure Asthma Depression Father Heart failure Paternal Grandfather Liver disease Family/Other Breast cancer Social History Narrative: Single, living in sober recovery house in [place], not working, no children Smokes half a pack a day, 20 pack years No alcohol or methamphetamine since January 2023 Exercise twice a week walking What is your current living situation?: I presently have a place to live Problems where you live: no known problems Problems where you live details: Lives in sober living facility. No known problems In the past 12 months, utilities in danger of being shut off: no In past 12 months, lack of transportation kept you from medical appts, meetings, work, or getting things needed for daily living: no In the past 12 mos, have been you worried that your food would run out before you had money to buy more?: never true In the past 12 mos, the food you bought just didn't last and you didn't have money to buy more?: never true Highest level of school completed/degree received: high school graduate Smoking Status: Current every day smoker Do you use any of these nicotine containing products: Vaping Products Second hand tobacco smoke exposure: No How often do you have a drink containing alcohol: never How often do you have six or more drinks on one occasion: Never AUDIT-C Alcohol total score: 0 Non-prescribed substance use: former substance user and amphetamines/methamphetamines Caffeine: Yes How often does anyone, including family, friends and others, physically hurt you : never How often does anyone, including family, friends and others, insult or talk down to you: never How often does anyone, including family, friends and others, threaten you with harm: never How often does anyone, including family, friends and others, scream or curse at you: never Little interest or pleasure in doing things: not at all Feeling down, depressed, or hopeless: not at all service: No Exam Narrative: Exam Narrative: EXAM GENERAL: Patient appears comfortable and well. Poor dentition noted EYES: No scleral icterus. ENT: Tympanic membranes and oropharynx normal. THYROID: no thyroid nodules or thyromegaly. LYMPH: No supraclavicular or cervical lymphadenopathy. SKIN: Visible skin seen during exam normal or with benign process only. EXT: No dependent lower extremity pedal edema. HEART: Regular rate and rhythm with no murmurs, rubs, or gallops. LUNGS: Clear to auscultation bilaterally with no crackles or wheezes. ABD: Soft, non tender, non distended. I did aggressively palpate her belly and I do not perceive any significant pain with palpation. She has normal bowel sounds throughout. PSYCH: Good eye contact, speech is not pressured. Const: Vital Signs, click to edit/add: Vital Signs - 24 hr 12/10/23 19:32 Temperature 97.7 F Pulse Rate [Pulse Oximeter] 74 Respiratory Rate 16 Blood Pressure [Ri ght Upper Arm] 125/85 Pulse Oximetry 99 Course Course ED Course: Patient seen and examined. Vital Signs Vital signs: Initial Vital Signs Temperature 97.7 F 12/10/23 19:32 Temperature Source Temporal Artery Scan 12/10/23 19:32 Pulse Rate 74 12/10/23 19:32 Respiratory Rate 16 12/10/23 19:32 Blood Pressure 125/85 12/10/23 19:32 Blood Pressure Mean 98 12/10/23 19:32 Blood Pressure Position High-Fowlers 12/10/23 19:32 Pulse Oximetry 99 12/10/23 19:32 Vital Signs Temperature 97.7 F 12/10/23 19:32 Pulse Rate 74 12/10/23 19:32 Respiratory Rate 16 12/10/23 19:32 Blood Pressure 125/85 12/10/23 19:32 Pulse Oximetry 99 12/10/23 19:32 Temperature 97.7 F 12/10/23 19:32 Pulse Rate 74 12/10/23 19:32 Respiratory Rate 16 12/10/23 19:32 Blood Pressure 125/85 12/10/23 19:32 Pulse Oximetry 99 12/10/23 19:32 Medical Decision Making MDM Narrative Medical decision making narrative: Patient is a 43-year-old woman who comes in today with dental pain and I do think upset stomach from swallowing some pus and drainage from her dental infection. Do not believe she needs further lab or imaging of her abdomen. She has no findings on exam and has normal vital signs. I will however treat her dental infection with Augmentin as well as Zofran for the nausea and recommended close outpatient follow-up with dentistry. Differential diagnosis includes but not limited to dental infection sinusitis dental abscess acute abdomen UTI reflux pancreatitis. Discharge Plan Discharge Clinical Impression: Pain, dental Patient Disposition: Home, Self-Care Condition: Stable Instructions: Toothache (ED) Additional Instructions: Augmentin as directed Zofran as directed Advance diet slowly Follow-up with your doctor as needed. Tylenol Motrin Rest Fluids Activity Level: No Restrictions Discharge Diet: Regular Prescriptions: No Action clonidine HCl 0.3 mg tablet 0.3 mg PO TID PRN epinephrine 0.3 mg/0.3 mL auto-injector 0.3 mg IM ONCE PRN Rx Instructions: as a single dose; may repeat once melatonin 10 mg tablet 20 mg PO QHS PRN ondansetron 4 mg tablet,disintegrating 4 mg PO Q8H omeprazole 40 mg capsule,delayed release(DR/EC) 40 mg PO DAILY Qty: 90 3RF prazosin 1 mg capsule 1 mg PO QHS Qty: 90 1RF prazosin 2 mg capsule 2 mg PO QPM Qty: 90 1RF topiramate 25 mg tablet 25 mg PO DAILY Qty: 90 1RF hydrochlorothiazide 12.5 mg tablet 12.5 mg PO DAILY Qty: 90 3RF nicotine 21 mg/24 hr Patch 24 Hour 1 patch transdermal Q24H Qty: 30 0RF loperamide [Anti-Diarrheal (loperamide)] 2 mg capsule 2 mg PO Q6H PRN (Reason: loose stool) Qty: 30 0RF methimazole 5 mg tablet 10 mg PO DAILY TAB-A-NIKKI trazodone 50 mg tablet PO levocetirizine 5 mg tablet 5 mg PO QAM fluticasone propion-salmeterol [Advair Diskus] 100-50 mcg/dose blister with device 1 ea INHALATION Q12H polyethylene glycol 3350 17 gram/dose powder 17 g PO DAILY albuterol sulfate [Ventolin HFA] 90 mcg/actuation HFA aerosol inhaler inhalation (DME) blood pressure monitor Kit See Rx Instructions .Route Qty: 1 0RF Rx Instructions: As directed atomoxetine 80 mg capsule 80 mg PO QAM Qty: 30 0RF propranolol 20 mg tablet 20 mg PO TID Qty: 120 0RF Rx Instructions: may add one additional dose if HR is >120. Wait at least 1 hour between doses. trazodone 100 mg tablet 200 mg PO QDAY Qty: 180 0RF gabapentin 300 mg capsule 300 mg PO QDAY Qty: 90 0RF multivitamin with folic acid [Tab-A-Nikki] 400 mcg tablet 1 tab PO DAILY Qty: 90 3RF cholecalciferol (vitamin D3) 50 mcg (2,000 unit) capsule 50 mcg PO DAILY Qty: 90 0RF Follow Up/Referrals: Tahmina Gandhi MD [Primary Care Provider] - Stand Alone Forms: [employer] Info Instructions
[2023-12-10 20:51] VITALS: PULSE 74
--- OUTSIDE RECORDS SUMMARY | 2023-12-10 21:04 | XMS_ITS ---
Author Organization [facility] Address [address] [place] [id number] Care Team Providers Care Home Advisor Name Role Phone Unavailable Unavailable Unavailable Surgery Details Not on file Complications Check Surgery Details section. Procedure Estimated Blood Loss Check Surgery Details section. Procedure Findings Check Surgery Details section. Procedure Specimens Taken Check Surgery Details section.
--- OUTSIDE RECORDS SUMMARY | 2023-12-10 21:04 | XMS_ITS | Clinical Summary ---
Author Organization [place] Address [address] [facility] [place] [address] Care Team Providers Care Exercise Scientist Name Role Phone BetteShirlene MD Unavailable [phone] Pat Cole APRN NET SOFTWARE DEVELOPER Unavailable [phone] Letha Manzanares MD Unavailable [phone] Corby Centeno MD Unavailable [phone] Cynthia Dubon MD Unavailable [phone] Wilma Saba MD Unavailable [phone] Jeannette Jean Baptiste NP Unavailable [phone] Cynthia Dubon MD Unavailable [phone] System, Provider Not In Primary Care Provider Un available Corby Centeno MD Unavailable [phone] Allergies Active Allergy Reactions Criticality Noted Date [...] Overview: Added automatically from request for surgery [id number] Back muscle spasm 04/28/2018 Last Assessment & [...] bef 03/19/21. 03/25/20 Pt sent results via [employer]. 03/26/20 Pt viewed results on [employer]. 03/05/21 Reminder mychart 04/02/21 Reminder call - [...] Care Team Description 11/09/2023 MyC Medical Advice [facility] [address] [address] Rosalind Jacobo RN 10/18/2023 8:00 AM CDT Office Visit [facility] [address] [address] Corby Centeno MD Mild intermittent asthma with acute exacerbation (Primary Dx); Non-seasonal allergic rhinitis due to pollen; Postnasal drip; Angioedema, subsequent encounter; Nut allergy; Atopy 10/18/2023 Travel 10/18/2023 PRE VISIT [facility] [address] [address] Corby Centeno MD Previsit 10/14/2023 Telephone [facility] [address] [place] [address] Corby Centeno MD Appointment (Allergy new pt appt) 10/14/2023 MyC Medical Advice [facility] [address] [address] [facility] Last 3 Months Immunizations Name Administration Dates Next Due [id number] Novel Flu 06/23/2009 Influenza (IIV3) PF 03/11/2014,06/23/2009 [...] Getting School Help Needed Not on file 09/22 /2023 Food Insecurity Answer Date Recorded Within the [...] in an abandoned building, in an overnight care home, or couch-surfing.) Yes 02/22/2023 Are you worried [...] Comments Blood Pressure 96/61 07/15/2023 9:30 AM INSPECTOR WELDED PARTS Pulse 64 07/15/2023 9:30 AM INSPECTOR WELDED PARTS Temperature 36.7 ??C (98 ??F) 07/15/2023 9:42 AM INSPECTOR WELDED PARTS Respiratory Rate 18 07/15/2023 9:42 AM INSPECTOR WELDED PARTS Oxygen Saturation 98% 07/15/2023 9:42 AM INSPECTOR WELDED PARTS Inhaled Oxygen Concentration - - Weight 88 kg (194 lb 0.1 oz) 07/15/2023 6:41 AM INSPECTOR WELDED PARTS Height 166.6 cm (5' 5.59) 07/15/2023 6:41 AM CS T Body Mass Index 31.7 07/15/2023 6:41 AM INSPECTOR WELDED PARTS Plan of Treatment Upcoming Encounters Date Type Department Care Team (Late st Contact Info) Description 12/20/2023 10:45 AM CDT Office Visit [facility] [address] [address] Corby Centeno MD [address] [place] [address] Health Maintenance Due Date Last Done [...] PLAN 05/26/2021 05/26/2020 COVID-19 Vaccine ( - season) 2023 NICOTINE/TOBACCO CESSATION COUNSELING Q 1 YR 04/13/2023 04/13/2022, 03/31/2021, 03/19/2020, Additional history exists DTAP/TDAP/TD IMMUNIZATION (3 - Td or Tdap) 10/12/2023 10/11/2013, 06/22/2011 INFLUENZA VACCINE (#1) 2024 , 07/02/2015, 03/11/2014, Additional history exists YEARLY PREVENTIVE VISIT 04/07/2024 04/07/20 23, 03/19/2020, 07/02/2015, Additional history exists ASTHMA CONTROL TEST 04/19/2024 10/18/2023, 04/18/2023, 10/18/2022, Additional history exists HPV TEST 02/22/2026 02/22/2023, 02/28, 07/02/2015 PAP 02/22/2026 02/22/2023, 02/28, 07/02/2015, Additional history exists GLUCOSE 04/19/2026 04/19/2023, 1101/2023, 02/22/2023, Additional history exists LIPID 03/01/2028 03/01/2023, 07/02/2015 HPV FOLLOW-UP Completed 02/22/2023, 02/28, 07/02/2015 PAP FOLLOW-UP Completed 02/22/2023, 02/28, 07/02/2015, Additional history exists HEPATITIS C SCREENING Completed 04/07/2023 HIV SCREENING Completed 04/07/2023, 01/29, 06/26/2014 PHQ-2 (once per calendar year) Completed 10/18/2023, [...] this topic Medical Devices Implanted Type Area Dull Coat Mill Operator Device Identifier Shelf Expiration Date Model / Serial / Lot Iud Contraceptive Device Mirena 504[address]-16 - [id number] Implanted:Qty: 1 on 07/15/2023 by Wilma Saba MD at [facility] Contraceptive Device N/A: Uterus HARI 06/29/2025 [id number] Arthrex Ankle Fracture Management System, 2.6mm Drill Bit, Cannulated Implanted:Qty: 1 on 11/04/2021 by Sukumar Villarreal MD at [facility] Right: Ankle [id number] 2220 3 Arthrex Ankle Fracture Management System, 4mm Cannulated, Short Threaded, 40mm Implanted:Qty: 1 on 11/04/2021 by Sukumar Villarreal MD at [facility] Right: Ankle [id number]- 2220 3 Arthrex Ankle Fracture Management System, 4mm Cannulated, Short Thread, 50mm Implanted:Qty: 1 on 11/04/2021 by Sukumar Villarreal MD at [facility] Right: Ankle [id number] -2220 3 Explanted Type Area Dull Coat Mill Operator Device Identifier Shelf Expiration Date Model / Serial / Lot Arthrex Ankle Fracture Management System, Guidewire W/ Trocar Tip, Threaded, 0.062 In Explanted:Qty: 2 on 11/04/2021 by Sukumar Villarreal MD at [facility] Right: Ankle [id number] / / 7 222 3 Procedures Procedure Name Priority Date/Time Associated Diagnosis Comments DE INTRACUT SKIN TESTS,ALLERGENS Routine 10/18/2023 10:07 PM CDT Mild intermittent asthma with acute exacerbation Non-seasonal allergic rhinitis due to pollen Postnasal drip Angioedema, subsequent encounter Nut allergy Atopy DE ALLERGY SKIN TESTS,ALLERGENS Routine 10/18/2023 10:07 PM CDT Mild intermittent asthma with acute exacerbation Non-seasonal allergic rhinitis due to pollen Postnasal drip Angioedema, subsequent encounter Nut allergy Atopy COMPREHENSIVE METABOLIC PANEL STAT 04/19/2023 10:11 PM INSPECTOR WELDED PARTS HIV ANTIGEN ANTIBODY COMBO Routine 04/07/2023 9:34 AM INSPECTOR WELDED PARTS History of substance abuse (H) HEPATITIS C SCREEN REFLEX TO HCV RNA QUANT AND GENOTYPE Routine 04/07/2023 9:34 AM INSPECTOR WELDED PARTS History of substance abuse (H) LIPID REFLEX [...] (ABNORMAL) Comprehensive metabolic panel (04/19/2023 10:11 PM INSPECTOR WELDED PARTS) Sodium 138 135 - 145 mmol/L 04/19/2023 10:59 PM INSPECTOR WELDED PARTS [facility] Comment:Reference intervals for this test were updated on 02/22/2023 to more accurately reflect our healthy population. There may be differences in the flagging of prior results with similar values performed with this method. Interpretation of those prior results can be made in the context of the updated reference intervals. Potassium 4.0 3.4 - 5.3 mmol/L 04/19/2023 10:59 PM INSPECTOR WELDED PARTS [facility] Carbon Dioxide (CO2) 28 22 - 29 mmol/L 04/19/2023 10:59 PM INSPECTOR WELDED PARTS [facility] Anion Gap 7 7 - 15 mmol/L 04/19/2023 10:59 PM INSPECTOR WELDED PARTS [facility] Urea Nitrogen 16.1 6.0 - 20.0 mg/dL 04/19/2023 10:59 PM INSPECTOR WELDED PARTS [facility] Creatinine 0.89 0.51 - 0.95 mg/dL 04/19/2023 10:59 PM INSPECTOR WELDED PARTS [facility] GFR Estimate 83 >60 mL/min/1. 73m2 04/19/2023 10:59 PM INSPECTOR WELDED PARTS [facility] Calcium 9.2 8.6 - 10.0 mg/dL 04/19/2023 10:59 PM INSPECTOR WELDED PARTS [facility] Chloride 103 98 - 107 mmol/L 04/19/2023 10:59 PM INSPECTOR WELDED PARTS [facility] Glucose 105(H) 70 - 99 mg/dL 04/19/2023 10:59 PM INSPECTOR WELDED PARTS [facility] Alkaline Phosphatase 70 40 - 150 U/L 04/19/2023 10:59 PM INSPECTOR WELDED PARTS [facility] Comment:Reference intervals for this test were updated on 04/12/2023 to more accurately reflect our healthy population. There may be differences in the flagging of prior results with similar values performed with this method. Interpretation of those prior results can be made in the context of the updated reference intervals. AST 19 0 - 45 U/L 04/19/2023 10:59 PM INSPECTOR WELDED PARTS [facility] Comment:Reference intervals for this test were updated on 11/08/2022 to more accurately reflect our healthy population. There may be differences in the flagging of prior results with similar values performed with this method. Interpretation of those prior results can be made in the context of the updated reference intervals. ALT 25 0 - 50 U/L 04/19/2023 10:59 PM INSPECTOR WELDED PARTS [facility] Comment:Reference intervals for this test were updated on 11/08/2022 to more accurately reflect our healthy population. There may be differences in the flagging of prior results with similar values performed with this method. Interpretation of those prior results can be made in the context of the updated reference intervals. Protein Total 6.5 6.4 - 8.3 g/dL 04/19/2023 10:59 PM INSPECTOR WELDED PARTS [facility] Albumin 3.9 3.5 - 5.2 g/dL 04/19/2023 10:59 PM INSPECTOR WELDED PARTS [facility] Bilirubin Total <0.2 <=1.2 mg/dL 04/19/2023 10:59 PM INSPECTOR WELDED PARTS [facility] Blood BLOOD SPECIMEN / Unknown Venipuncture / Unknown 04/19/2023 10:11 PM INSPECTOR WELDED PARTS 04/19/2023 10:19 PM INSPECTOR WELDED PARTS Aida Teague MD LAB - BLOOD ORDERABL ES [facility] [address] [facility], [address] [address], [facility] [phone] * HIV Antigen Antibody Combo Prospect (04/07/2023 9:34 AM INSPECTOR WELDED PARTS) HIV Antigen Antibody Combo Nonreactive Nonreactive 04/08/2023 10:32 AM INSPECTOR WELDED PARTS SPECIALTY CORE/PROT/EN DO Comment:HIV-1 p24 Ag & HIV-1 /HIV-2 Ab Not Detected Blood BLOOD SPECIMEN / Unknown Venipuncture / Unknown 04/07/2023 9:34 AM INSPECTOR WELDED PARTS 04/07/2023 9:34 AM INSPECTOR WELDED PARTS Jeannette Jean Baptiste NP LAB - BLOOD ORDERABL ES [facility]/PROT/ENDO Specialty Core/Prot/Endo [address] [facility], [address] [phone] * Hepatitis C Screen Reflex to HCV RNA Quant and Genotype (04/07/2023 9:34 AM INSPECTOR WELDED PARTS) Hepatitis C Antibody Nonreactive Nonreactive 04/08/2023 9:37 AM INSPECTOR WELDED PARTS [facility]/EN DO Blood BLOOD SPECIMEN / Unknown Venipuncture / Unknown 04/07/2023 9:34 AM INSPECTOR WELDED PARTS 04/07/2023 9:34 AM INSPECTOR WELDED PARTS Narrative [facility]PROT/ENDO - 04/08/2023 9:37 AM INSPECTOR WELDED PARTS Assay performance characteristics have not been established for newborns, infants, and children. Jeannette Jean Baptiste NP LAB - BLOOD ORDERABL ES [facility]/PROT/ENDO [facility] Core/Prot/Endo [address] [facility] [address] [facility], [address] [address], [facility] [phone] * Lipid panel reflex to direct LDL [...] than or equal to 220 mg/dL Eulalia Redman FUEL SYSTEM MAINTENANCE SUPERVISOR NET SOFTWARE DEVELOPER LAB - BLO OD ORDERABLES [facility] [address] [facility] [address], [address] [place] [address], [facility] [phone] * Pap screen with HPV - recommended [...] component of this testing was completed at [facility] 02/24/2023 3:01 PM CDT SPECIALTY LABS Brushing CERVIX UTERI STRUCTURE / Unknown Non-blood Collection / Unknown 02/22/2023 11:20 AM CDT 02/22/2023 11:50 AM CDT Eulalia Henrysyedzaki FUEL SYSTEM MAINTENANCE SUPERVISOR NET SOFTWARE DEVELOPER LAB - IRENE KER AP [facility] [address] [facility] [address], [address] [place] [address], [facility] [phone] * HPV High Risk Types DNA Cervical (02/22/2023 11:20 AM CDT) Other HR HPV Negative Negative 02/28/2023 12:40 PM CDT [facility] HPV16 DNA Negative Negative 02/28/2023 12:40 PM CDT [facility] HPV18 DNA Negative Negative 02/28/2023 12:40 PM CDT [facility] FINAL DIAGNOSIS This patient's sample is negative for HPV DNA. This test was developed and its performance characteristics determined by the [facility] [place], [facility]. It has not been [...] 10:26 AM CDT Eulalia Luna Юлия WANG NET SOFTWARE DEVELOPER LAB - BLO OD ORDERABLES [facility] Molecular Diagnostics [address] [facility] [address] [facility], [address] [place] [address], [facility] [phone] from Last 3 Months or Most Recently Relevant to Health Maintenance Care Teams Exercise Scientist Relationship Specialty Start Date End Date System, Provider Not In PCP - General Clinic 07/15/23 Shirlene Amos MD [facility] [facility] [address] [place] [phone] Dermatology 12/29/15 Pat Cole APRN NET SOFTWARE DEVELOPER [address] [place], [place] [address] Nurse Practitioner 01/19/22 Letha Manzanares MD [address] [place], [place] [address] Ophthalmology 03/25/23 Corby Centeno MD [address] [place], [place] [address] Dermatology 03/29/23 Cynthia Dubon MD [address] [place] [address] Cardiovascular Disease 04/19/23 Wilma Saba MD [address] [place] [address] Assigned OBGYN Provider 04/09/23 Jeannette Jean Baptiste NP [address] [place] [address] Assigned PCP 06/23/23 Cynthia Dubon MD [address] [place] [address] Assigned Heart and Vascular Provider 07/01/23 Corby Centeno MD [address] [place] [address] Assigned Surgical Provider 11/20/23
--- OUTSIDE RECORDS SUMMARY | 2023-12-10 21:04 | XMS_ITS | Encounter Summary ---
Author Organization [facility] Address [address] [place] [address] Care Team Providers Care Reimbursement Coordinator Name Role Phone Unavailable Primary Care Provider Unavailabl e Reason for Visit * Reason Onset Date Comments [facility] Lab Results 08/16/2023 Encounter Details Date Type Department Care Team (Latest Contact Info) Description 08/16/2023 Clinical Communication Division of Endocrinology in [place], [place] [address] [place] [phone] Minerva Mast M.D. [address] [place] [phone] [facility] Lab Results Social History Tobacco Use Types Packs/Day Years Used Date Smoking Tobacco: Every Day Cigarettes Passive Smoke Exposure: Current Smokeless Tobacco: Never [facility] Utilities Answer Date Recorded In the past [...] your living situation today? I have a [facility] place to live 08/24/2023 Sex and Gender [...]
--- OUTSIDE RECORDS SUMMARY | 2023-12-10 21:04 | XMS_ITS | Clinical Summary ---
Author Organization [facility] Address [address] [place] [address] Care Team Providers Care Furnace Clerk Name Role Phone Unavailable Primary Care Provider Unavailabl e Source Comments Patient records contain information from all sites at [facility]. For routine questions regarding patient records, call [phone] during business hours, M-F 8:00 AM - 5:00 PM Central Time. Record requests for emergency care only can be directed to [phone] at any time.[facility] Allergies Active Allergy Reactions Criticality Noted Date Comments [place] Other (see comments) Low 06/13/2023 Cyclobenzaprine Other [...] Tobacco: Never Tobacco Cessation:Counseling Given: Not Answered [facility] Utilities Answer Date Recorded In the past 12 months has [employer], [employer], oil, or water [employer] threatened to shut off services in your [...] your living situation today? I have a [facility] place to live 08/24/2023 Sex and Gender Information Value Date Recorded Sex Assigned at Female 08/24/2023 7:50 PM CDT Gender Identity Female 08/24/2023 7:50 PM CDT Sexual Orientation Straight 08/24/2023 7: 50 PM CDT Last Filed Vital Signs Vital Sign Reading Time Taken Comments Blood Pressure 116/77 06/23/2023 8:33 AM LEAD SOFTWARE TEST ENGINEER Pulse 76 06/23/2023 8:33 AM LEAD SOFTWARE TEST ENGINEER Temperature - - Respiratory Rate - - Oxygen Saturation - - Inhaled Oxygen Concentration - - Weight 85.5 kg (188 lb 7.9 oz) 06/23/2023 8:33 A M LEAD SOFTWARE TEST ENGINEER Height 166.8 cm (5' 5.67) 06/23/2023 8:33 AM CS T Body Mass Index 30.73 06/23/2023 8:33 AM LEAD SOFTWARE TEST ENGINEER Plan of Treatment Health Maintenance Due Date Last Done Comments Cervical Cancer Screening 1981 HIV Screening 1981 Hepatitis C Screening 1981 Mammogram 1981 Hepatitis B Vaccines (1 of 3 - 19+ 3-dose series) 2000 COVID-19 Vaccine (1 - 2022- season) 2023 Depression Screening (Annual PHQ-2) 05/30/2023 DTaP,Tdap,and Td Vaccines (3 - Td or Tdap) 10/05/2023 10/04/2013, 06/22/2011 Influenza Vaccine (#1) 2024 , 07/02/2015, 03/11/2014, Additional history exists Lipid (Cholesterol) Screening 03/01/2028 03/01/2023 HPV Vaccines Aged Out No longer eligi ble based on patient's age to complete this topic Pneumococcal vaccine (0-64 years) Aged Out No longer eligible based on patient's age to complete this topic Medical Devices Implanted Type Area Audio Video Mechanic Device Identifier Shelf Expiration Date Model / [...]
--- OUTSIDE RECORDS SUMMARY | 2023-12-10 21:04 | XMS_ITS | Referral Summary ---
Author Organization [facility] Address [address] [place] [address] Care Team Providers Care Fish Smoker Name Role Phone Unavailable Primary Care Provider Unavailabl e Source Comments Patient records contain information from all sites at [facility]. For routine questions regarding patient records, call [phone] during business hours, M-F 8:00 AM - 5:00 PM Central Time. Record requests for emergency care only can be directed to [phone] at any time.[facility] Allergies Active Allergy Reactions Criticality Noted Date Comments [place] Other (see comments) Low 06/13/2023 Cyclobenzaprine Other [...] Tobacco: Never Tobacco Cessation:Counseling Given: Not Answered [facility] Utilities Answer Date Recorded In the past 12 months has [employer], [employer], oil, or water [employer] threatened to shut off services in your [...] your living situation today? I have a [facility] place to live 08/24/2023 Sex and Gender Information Value Date Recorded Sex Assigned at Female 08/24/2023 7:50 PM CDT Gender Identity Female 08/24/2023 7:50 PM CDT Sexual Orientation Straight 08/24/2023 7: 50 PM CDT Last Filed Vital Signs Vital Sign Reading Time Taken Comments Blood Pressure 116/77 06/23/2023 8:33 AM RETAIL SALES DIRECTOR Pulse 76 06/23/2023 8:33 AM RETAIL SALES DIRECTOR Temperature - - Respiratory Rate - - Oxygen Saturation - - Inhaled Oxygen Concentration - - Weight 85.5 kg (188 lb 7.9 oz) 06/23/2023 8:33 A M RETAIL SALES DIRECTOR Height 166.8 cm (5' 5.67) 06/23/2023 8:33 AM CS T Body Mass Index 30.73 06/23/2023 8:33 AM RETAIL SALES DIRECTOR Plan of Treatment Not on file Medical Devices Implanted Type Area Residential Manager Device Identifier Shelf Expiration Date Model / [...]
--- OUTSIDE RECORDS SUMMARY | 2023-12-10 21:05 | XMS_ITS | Encounter Summary ---
Author Organization [employer] Address [address] [facility] [place] [address] Care Team Providers Care Dust Control Engineer Name Role Phone ZohaibyanelisShirlene MD Unavailable Pat Cole APRN SERVICE STATION HELPER Unavailable [phone] Letha Manzanares MD Unavailable [phone] Corby Centeno MD Unavailable [phone] Cynthia Dubon MD Unavailable [phone] Letha Manzanares MD Unavailable [phone] Wilma Saba MD Unavailable [phone] Jeannette Jean Baptiste NP Unavailable [phone] Cynthia Dubon MD Unavailable [phone] System, Provider Not In Primary Care Provider Un available Reason for Referral * Medication Prior Authorization - Closed Specialty Diagnoses / Procedures Referred By Contmoises t Referred To Contact Diagnoses Mild intermittent asthma with acute exacerbation Non-seasonal allergic rhinitis due to pollen Angioedema, subsequent encounter Nut allergy Atopy Corby Centeno MD [address] [place] [address] Referral ID Status Reason Start Date Expiration Date Visits Re quested Visits Authorized [id number] Closed 1 1 Reason for Visit * Reason Comments Allergy Consult Per pt highly allerg ic to molds, completed prick/blood testing, approx 4 years ago fall, window open overnight, woke up with tongue swelling/perioral numbness/swelling, treated with epipen at ED, resolved, continued happening, gargling with liquid benadryl helps, has benadryl as emergency medicine. Saw stave grader, reyna but caused palpations, didn't help symptoms. Allergic to decongestants per pt. Worst late fall early spring, also suspects trees, unable to go outside/hiking/being outside Encounter Details Date Type Department Care Team ( Contact Info) Description 10/18/2023 8:00 AM CDT Office Visit [facility] [address] [address] Corby Centeno MD [address] [place] [id number] Mild intermittent asthma with acute exacerbation [...] in an abandoned building, in an overnight senior living, or couch-surfing.) Yes 02/22/2023 Are you worried [...] from the original note were not included. [facility] Dermato-allergology Note Office visit Encounter Date: October 18, 2023 CC: Allergy Consult (Per pt highly allergic to molds, completed prick/blood testing, approx 4 yearsago fall, window open overnight, woke up with tongue swelling/perioral numbness/swelling, treated with epipen at ED, resolved, continued happening, gargling with liquid benadryl helps, has benadryl as emergency medicine. Saw stave graderreyna but caused palpations, didn't help symptoms. 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 Social History: The patient works at [employer]. Patient has the following hobbies or non-occupational [...] Imagin03/23/23 Jeannette Jean Baptiste NP (FP) FROM [facility]: Patient presents with: Asthma: Gotten worse Allergies: Possible referral Natalie is a resident of [facility], she is currently in their short term program. She states she has been sober for 90 days and has been at [facility] for 30 days. This is her [...] 100-50 MCG/ACT inhaler 01/13/23 Dr. Elan Jeffrey ([facility] ED) FROM [facility]: Female with a history of environmental allergies who presents the emergency department for evaluation of an allergic reaction. Patient states that she was in her long term cell and was laying down and wascold [...] answered to satisfaction. 01/08/23 Dr. Demetrio Lugo ([facility]) FROM [facility]: Presents to the ED for evaluation of suspected allergic reaction. She is in long term currently and is concerned that there is mold in her long term cell. She states that in the past she has had skin changes when exposed to mold. She denies shortness of breath, cough, chest pain, lightheadedness or loss of consciousness. She received 2 doses of epinephrine in long term and is presenting with some palpitations and nervousness. She has never been hospitalized for allergic reactions and has never been intubated.She has no other recent exposures to known allergens including perfumes, soaps or animals. She has recently been wearing new clothes in the form of her long term uniform. She has no other issues to [...] reaction although she did receive epinephrine in long term. She is awake and alert and has [...] improve steadily can be discharged back to long term at that time with the below delineated outpatient medications. diphenhydrAMINE (BENADRYL) 25 mg tablet EPINEPHrine (EPIPEN) 0.3 mg/0.3 mL auto-injector 05/04/16 Dr. Richardson Carranza (derm) FROM [facility]: Presents for an evaluation of dry skin [...] 04/05/16 Dr. Bharath Conti ([facility]) FROM [facility]: Relates that she developed itchy patches on her skin earlier today and became very anxious that shewas having an allergic reaction. Natalie took several doses of nwtm-azm-ugoahif diphenhydramine. The itching and rash have subsided [...] her symptoms worsen. 11/05/15 Dr. Bharath Conti ([facility] ED) FROM [facility]: Relates that she has been having a [...] worsen. 11/03/15 Dr. Barb Nolan/Dr. Frederick Chamorro ([facility] ED) FROM [facility]: Female who has a history of constipation [...] so since that time has begun swelling. Field Reviewer: Dr. Moreland in [place]. She met him for the first time last which is 4 days ago. She saw him in [place]. [phone]. She is awaiting on lab work. She [...] her arm. She is working with an stave grader in [place] and has appointment this coming . She's [...] mg ??3 days. She will call her stave grader when she leaves. She will use her patient if needed. She will return if she has concerns. 10/24/15 Dr. Jesus Dolan ([facility]) FROM [facility]: She states she's had a history of [...] is a smoker. 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 FAMILY HISTORY: Reveals an uncle with allergic [...] in a month. 01/30/08 Dr. Joanie Rico ([facility] ED) FROM [facility]: Presents to Emergency Department complaining of right [...] Self, Allergy Tests: 09/20/12 Dr. Enrique Hawkins ([facility] allergy) Order for Future Allergy Testing: [x] Outpatient [] Inpatient: John..../ Bed .... Skin Atopy (atopic dermatitis) [x] Yes [] No .........see [facility] Contact allergies: [] Yes [x] No .......... Hand eczema: [x] Yes [] No .........see HPI Leading hand: [x] R [] L [] Ambidextrous Drug allergies: [] Yes [x] No which?...... all [facility]-listed allergies as of 10/18/23 are side effects; [...] tests) [] Pollen Panel = Tree, Grass, [place]erry (24 tests) [] Others: ... [] Patient's [...] 11 Tab grass (sorghum halepense) - 12 [place] mix (common Cocklebur, Waldron???s quarters, rough redroot Pigweed, Dock/Lupus) - 13 Mug wort (artemisia vulgare) - 14 Ragweed giant/short (ambrosia spp) - 15 White birch (Betula papyrifera) - 16 Tree mix 1 (Pecan, Maple BHR, Umbarger RVW, japanese Waterman, black Mckenzie) - 17 Red cedar (juniperus kathleen) - 18 Tree mix 2 (white Olivier, river/red Birch, black Aibonito, common Mcdowell, japanese Elm) - 19 Box elder/Maple mix (acer spp) - 20 Wilberforce shagbark (carya ovata) - Conclusion: Nuts and Beans (Placed October 18, 2023) No Substance Readings (15min) Evaluation 1 Merkel (prunus dulcis) - 2 Doniphan nut (bertholletia excels) - 3 Cashew nut (anacardium occidentale) - 4 Coconut (cocos nucifera) - 5 Hazelnut (corylus americana) - 6 Pecan (carya illinoinensis) - 7 Aibonito (juglans regia) - 8 Pistachio nut (pistacia [...] and allergy test results and they can size changer time or can be incomplete because of [...] Head of Dermato-Allergy Division Department of Dermatology [facility] Follow-up in Derm-Allergy clinic in 2 [...] benadryl helps, has benadryl as emergency medicine.Saw stave grader, reyna but caused palpations, didn't help symptoms. Allergic to decongestants per pt. Worst late fall early spring, also suspects trees, unable to go outside/hiking/being outside Octaviano Negron RN documented in this encounter Plan of Treatment Upcoming Encounters Date Type Department Care Team (Late Contact Info) Description 12/20/2023 10:45 AM CDT Office Visit [facility] [address] [address] Corby Centeno MD [address] [place] [address] [phone] Scheduled Orders Name Type Priority Associated Diagnoses [...] Procedure Name Priority Date/Time Associated Diagnosis Comments MS INTRACUT SKIN TESTS,ALLERGENS Routine 10/18/2023 10:07 PM CDT Mild intermittent asthma with acute exacerbation Non-seasonal allergic rhinitis due to pollen Postnasal drip Angioedema, subsequent encounter Nut allergy Atopy MS ALLERGY SKIN TESTS,ALLERGENS Routine 10/18/2023 10:07 PM [...] Total Score: 1 04/07/20 23 7:[address] COMMISSIONER documented as of this encounter Care Teams Dust Control Engineer Relationship Specialty Start Date End Date System, Provider Not In PCP - General Clinic 07/15/23 Shirlene Amos MD [address] [place] [address] [place] [address] Dermatology 12/29/15 Pat Cole APRN CNP [address] [place] [address] [phone] Nurse Practitioner 01/19/22 Letha Manzanares MD [address] [place] [address] [phone] Ophthalmology 03/25/23 Corby Centeno MD [address] [place] [address] [phone] Dermatology 03/29/23 Cynthia Dubon MD [address] [place] [address] [phone] Cardiovascular Disease 04/19/23 Letha Manzanares MD [address] [place] [address] [phone] Assigned Surgical Provider 04/23/23 11/19/23 Wilma Saba MD [address] [id number] Assigned OBGYN Provider 04/09/23 Jeannette Jean Baptiste NP [address] [place] [address] [phone] Assigned PCP 06/23/23 Cynthia Dubon MD [address] [place] [address] [phone] Assigned Heart and Vascular Provider 07/01/23 documented as of this encounter
--- OUTSIDE RECORDS SUMMARY | 2023-12-10 21:05 | XMS_ITS | Referral Summary ---
Author Organization [facility] Address [address] [facility] [place] [address] Care Team Providers Care Assistant Golf Professional Name Role Phone ZohaibyanelisShirlene MD Unavailable [phone] Pat Cole APRN SPRAY STAINER Unavailable [phone] Letha Manzanares MD Unavailable [phone] Corby Centeno MD Unavailable [phone] Cynthia Dubon MD Unavailable [phone] Wilma Saba MD Unavailable [phone] Jeannette Jean Baptiste NP Unavailable [phone] Cynthia Dubon MD Unavailable [phone] System, Provider Not In Primary Care Provider Un available Corby Centeno MD Unavailable [phone] Encounters Date Type Department Care Team Description 11/09/2023 MyC Medical Advice [facility] [address] [address] Rosalind Jacobo RN 10/18/2023 Travel 10/18/2023 PRE VISIT [facility] [address] [phone] Corby Centeno MD Previsit 10/18/2023 8:00 AM CDT Office Visit [facility] [address] [phone] Corby Centeno MD Mild intermittent asthma with acute exacerbation (Primary Dx); Non-seasonal allergic rhinitis due to pollen; Postnasal drip; Angioedema, subsequent encounter; Nut allergy; Atopy 10/14/2023 Telephone [facility] [address] [place] [phone] Croby Centeno MD Appointment (Allergy new pt appt) 10/14/2023 MyC Medical Advice [facility] [address] [phone] [facility] Months Allergies Active Allergy [...] Overview: Added automatically from request for surgery [id number] Back muscle spasm 04/28/2018 Last Assessment & [...] bef 03/19/21. 03/25/20 Pt sent results via Where. 03/26/20 Pt viewed results on Where. 03/05/21 Reminder DRESSBOOMhart 04/02/21 Reminder call - lm 05/06/21 Lost [...] 03/30/2023 Immunizations Name Administration Dates Next Due [id number] Novel Flu 06/23/2009 Influenza (IIV3) PF 03/11/2014,06/23/2009 [...] Comments Blood Pressure 96/61 07/15/2023 9:30 AM CERAMICS TEACHER Pulse 64 07/15/2023 9:30 AM CERAMICS TEACHER Temperature 36.7 ??C (98 ??F) 07/15/2023 9:42 AM CERAMICS TEACHER Respiratory Rate 18 07/15/2023 9:42 AM CERAMICS TEACHER Oxygen Saturation 98% 07/15/2023 9:42 AM CERAMICS TEACHER Inhaled Oxygen Concentration - - Weight 88 kg (194 lb 0.1 oz) 07/15/2023 6:41 AM CERAMICS TEACHER Height 166.6 cm (5' 5.59) 07/15/2023 6:41 AM CS T Body Mass Index 31.7 07/15/2023 6:41 AM CERAMICS TEACHER Plan of Treatment Upcoming Encounters Date Type Department Care Team (Late st Contact Info) Description 12/20/2023 10:45 AM CDT Office Visit [facility] [address] [phone] Corby Centeno MD [address] [place] [id number] Medical Devices Implanted Type Area Floating Derrick Operator Device Identifier Shelf Expiration Date Model / Serial / Lot Iud Contraceptive Device Mirena [address]-14 - [id number] Implanted:Qty: 1 on 07/15/2023 by Wilma Saba MD at [facility] Contraceptive Device N/A: Uterus HARI 06/29/2025 [id number] Arthrex Ankle Fracture Management System, 2.6mm Drill Bit, Cannulated Implanted:Qty: 1 on 11/04/2021 by Sukumar Villarreal MD at [facility] Right: Ankle [id number] 2220 3 Arthrex Ankle Fracture Management System, 4mm Cannulated, Short Threaded, 40mm Implanted:Qty: 1 on 11/04/2021 by Sukumar Villarreal MD at [facility] Right: Ankle [id number] 2220 3 Arthrex Ankle Fracture Management System, 4mm Cannulated, Short Thread, 50mm Implanted:Qty: 1 on 11/04/2021 by Sukumar Villarreal MD at [facility] Right: Ankle [id number] -50 2220 3 Explanted Type Area Floating Derrick Operator Device Identifier Shelf Expiration Date Model / Serial / Lot Arthrex Ankle Fracture Management System, Guidewire W/ Trocar Tip, Threaded, 0.062 In Explanted:Qty: 2 on 11/04/2021 by Sukumar Villarreal MD at [facility] Right: Ankle [id number] 2220 3 Procedures Procedure Name Priority Date/Time Associated Diagnosis Comments UT INTRACUT SKIN TESTS,ALLERGENS Routine 10/18/2023 10:07 PM CDT Mild intermittent asthma with acute exacerbation Non-seasonal allergic rhinitis due to pollen Postnasal drip Angioedema, subsequent encounter Nut allergy Atopy UT ALLERGY SKIN TESTS,ALLERGENS Routine 10/18/2023 10:07 PM CDT Mild intermittent asthma with acute exacerbation Non-seasonal allergic rhinitis due to pollen Postnasal drip Angioedema, subsequent encounter Nut allergy Atopy COMPREHENSIVE METABOLIC PANEL STAT 04/19/2023 10:11 PM CERAMICS TEACHER HIV ANTIGEN ANTIBODY COMBO Routine 04/07/2023 9:34 AM CERAMICS TEACHER History of substance abuse (H) HEPATITIS C SCREEN REFLEX TO HCV RNA QUANT AND GENOTYPE Routine 04/07/2023 9:34 AM CERAMICS TEACHER History of substance abuse (H) LIPID REFLEX [...] (ABNORMAL) Comprehensive metabolic panel (04/19/2023 10:11 PM CERAMICS TEACHER) Pathologist [facility] Sodium 138 135 - 145 mmol/L 04/19/2023 10:59 PM CERAMICS TEACHER [facility] Comment:Reference intervals for this test were updated on 02/22/2023 to more accurately reflect our healthy population. There may be differences in the flagging of prior results with similar values performed with this method. Interpretation of those prior results can be made in the context of the updated reference intervals. Potassium 4.0 3.4 - 5.3 mmol/L 04/19/2023 10:59 PM CERAMICS TEACHER [facility] Carbon Dioxide (CO2) 28 22 - 29 mmol/L 04/19/2023 10:59 PM CERAMICS TEACHER [facility] Anion Gap 7 7 - 15 mmol/L 04/19/2023 10:59 PM CERAMICS TEACHER [facility] Urea Nitrogen 16.1 6.0 - 20.0 mg/dL 04/19/2023 10:59 PM CERAMICS TEACHER [facility] Creatinine 0.89 0.51 - 0.95 mg/dL 04/19/2023 10:59 PM CERAMICS TEACHER [facility] GFR Estimate 83 >60 mL/min/1. 73m2 04/19/2023 10:59 PM CERAMICS TEACHER [facility] Calcium 9.2 8.6 - 10.0 mg/dL 04/19/2023 10:59 PM CERAMICS TEACHER [facility] Chloride 103 98 - 107 mmol/L 04/19/2023 10:59 PM CERAMICS TEACHER [facility] Glucose 105(H) 70 - 99 mg/dL 04/19/2023 10:59 PM CERAMICS TEACHER [facility] Alkaline Phosphatase 70 40 - 150 U/L 04/19/2023 10:59 PM CERAMICS TEACHER [facility] Comment:Reference intervals for this test were updated on 04/12/2023 to more accurately reflect our healthy population. There may be differences in the flagging of prior results with similar values performed with this method. Interpretation of those prior results can be made in the context of the updated reference intervals. AST 19 0 - 45 U/L 04/19/2023 10:59 PM CERAMICS TEACHER [facility] Comment:Reference intervals for this test were updated on 11/08/2022 to more accurately reflect our healthy population. There may be differences in the flagging of prior results with similar values performed with this method. Interpretation of those prior results can be made in the context of the updated reference intervals. ALT 25 0 - 50 U/L 04/19/2023 10:59 PM CERAMICS TEACHER [facility] Comment:Reference intervals for this test were updated on 11/08/2022 to more accurately reflect our healthy population. There may be differences in the flagging of prior results with similar values performed with this method. Interpretation of those prior results can be made in the context of the updated reference intervals. Protein Total 6.5 6.4 - 8.3 g/dL 04/19/2023 10:59 PM CERAMICS TEACHER [facility] Albumin 3.9 3.5 - 5.2 g/dL 04/19/2023 10:59 PM CERAMICS TEACHER [facility] Bilirubin Total <0.2 <=1.2 mg/dL 04/19/2023 10:59 PM CERAMICS TEACHER [facility] Blood BLOOD SPECIMEN / Unknown Venipuncture / Unknown 04/19/2023 10:11 PM CERAMICS TEACHER 04/19/2023 10:19 PM CERAMICS TEACHER Aida Teague MD LAB - BLOOD ORDERABL ES [facility] [place] [facility] [address] [facility], [address] [place] [address], [facility] [phone] * HIV Antigen Antibody Combo [place] (04/07/2023 9:34 AM CERAMICS TEACHER) HIV Antigen Antibody Combo Nonreactive Nonreactive 04/08/2023 10:32 AM CERAMICS TEACHER [facility] DO Comment:HIV-1 p24 Ag & HIV-1 /HIV-2 Ab Not Detected Blood BLOOD SPECIMEN / Unknown Venipuncture / Unknown 04/07/2023 9:34 AM CERAMICS TEACHER 04/07/2023 9:34 AM CERAMICS TEACHER Jeannette Jean Baptiste NP LAB - BLOOD ORDERABL ES [facility]PROT/ENDO [facility]Prot[facility]Endo [address] [facility], [address] [phone] * Hepatitis C Screen Reflex to HCV RNA Quant and Genotype (04/07/2023 9:34 AM CERAMICS TEACHER) Hepatitis C Antibody Nonreactive Nonreactive 04/08/2023 9:37 AM CERAMICS TEACHER [facility] DO Blood BLOOD SPECIMEN / Unknown Venipuncture / Unknown 04/07/2023 9:34 AM CERAMICS TEACHER 04/07/2023 9:34 AM CERAMICS TEACHER Narrative [facility] - 04/08/2023 9:37 AM CERAMICS TEACHER Assay performance characteristics have not been established for newborns, infants, and children. Jeannette Jean Baptiste NP LAB - BLOOD ORDERABL ES [facility]ENDO Specialty Core/Prot/Endo [address] [facility], [address] [phone] * Lipid panel reflex to direct LDL Fasting (03/01/2023 1:33 PM CDT) Pathologist [facility] Cholesterol 156 <200 mg/dL 03/02/2023 2:22 PM [...] or equal to 220 mg/dL Eulalia Luna Юлия WANG SPRAY STAINER LAB - BLO OD ORDERABLES [facility] Core Lab [address] [facility], [address] [address], [facility] [phone] * Pap screen with HPV - recommended [...] component of this testing was completed at [facility] 02/24/2023 3:01 PM CDT SPECIALTY LABS Brushing CERVIX UTERI STRUCTURE / Unknown Non-blood Collection / Unknown 02/22/2023 11:20 AM CDT 02/22/2023 11:50 AM CDT Eulalia Luna Xaviercrissyedzaki MYSTERY SHOPPER SPRAY STAINER LAB - IRENE KER [facility] Specialty Lab [address] [facility], [address] [place] [phone], [facility] [phone] * HPV High Risk Types DNA Cervical (02/22/2023 11:20 AM CDT) Other HR HPV Negative Negative 02/28/2023 12:40 PM CDT [facility] HPV16 DNA Negative Negative 02/28/2023 12:40 PM CDT [facility] HPV18 DNA Negative Negative 02/28/2023 12:40 PM CDT [facility] FINAL DIAGNOSIS This patient's sample is negative for HPV DNA. This test was developed and its performance characteristics determined by the [facility], Molecular Diagnostics Laboratory. It has [...] AM CDT 02/25/2023 10:26 AM CDT Eulalia Henrysyedzaki MYSTERY SHOPPER SPRAY STAINER LAB - BLO OD ORDERABLES [facility] Molecular Diagnostics [address] [facility] [address] [facility] [place] [address], [facility] [phone] from Last 3 Months or Most Recently Relevant to Health Maintenance Care Teams Assistant Golf Professional Relationship Specialty Start Date End Date System, Provider Not In PCP - General Clinic 07/15/23 Shirlene Amos MD [address] [facility] [address] Dermatology 12/29/15 Pat Cole APRN SPRAY STAINER [address] [place] [address] [phone] Nurse Practitioner 01/19/22 Letha Manzanares MD [address] [place] [address] [phone] Ophthalmology 03/25/23 Corby Centeno MD [address] [place] [address] 193815 Dermatology 03/29/23 Cynthia Dubon MD [address] [place] [address] 184895 Cardiovascular Disease 04/19/23 Wilma Saba MD [address] [place], [place] [address] Assigned OBGYN Provider 04/09/23 Jeannette Jean Baptiste NP [address] [id number] Assigned PCP 06/23/23 Cynthia Dubon MD [address] [place] [address] [phone] Assigned Heart and Vascular Provider 07/01/23 Corby Centeno MD [address] [place] [address] Assigned Surgical Provider 11/20/23
--- OUTSIDE RECORDS SUMMARY | 2023-12-10 21:05 | XMS_ITS | Encounter Summary ---
Author Organization [place] Address [address] [facility] [place] [address] Care Team Providers Care Store Administrative Assistant Name Role Phone BetteShirlene MD Unavailable [phone] [facility] Primary Care Provider Burton Duncan MD Unavailable [phone] Pat Cole APRN BOLT CUTTER Unavailable [phone] Yohana Estes PA-C Unavailable Letha Manzanares MD Unavailable [phone] Corby Centeno MD Unavailable [phone] Cynthia Dubon MD Unavailable [phone] Letha Manzanares MD Unavailable [phone] Wilma Saba MD Unavailable [phone] Jeannette Jean Baptiste NP Unavailable [phone] Cynthia Dubon MD Unavailable [phone] System, Provider Not In Primary Care Provider Un available Corby Centeno MD Unavailable Reason for Visit * Reason Onset Date Comments Appointment 03/01/2023 Encounter Details Date Type Department Care Team (Late st Contact Info) Description 03/01/2023 Telephone [facility] [address] [place] [address] Ewelina Alexandra MD [address] [place] [address] Appointment Social History Tobacco Use Types Packs/Day [...] e-consult? Pleaseadvise. [facility] can be reached at [phone], ok to leave detailed information on voicemail. * Telephone Encounter - Luz Montgomery - 03/04/2023 8:12 AM CDT Central scheduling is unable to determine which spots are available to use for this visit, a searchof all clinics was preformed both in person and virtual, please assist [facility] in getting appt moved toa sooner at Dr Vizcarra's request. Please call [facility] at [phone]. My apologies and thank youfor your help [...] Katty Melissa - 03/01/2023 2:50 PM CDT [facility] Phone Message May a detailed message be left on voicemail: yes Reason for Call: Other: Pt being referred for Thyroid nodule, no appt available in 4 weeks, please call [facility] at [place] [facility] at [phone] documented in this encounter Plan of Treatment Upcoming Encounters Date Type Department Care Team (Late st Contact Info) Description 12/20/2023 10:45 AM CDT Office Visit [facility] [address] [phone] Corby Centeno MD [address] [place] [address] 011295 documented as of this encounter Visit Diagnoses Not on filedocumented in this encounter Additional Health Concerns Assessment Noted Time PHQ-9 Depression Total Score: 2 02/23/20 10:16 AM CDT documented as of this encounter Care Teams Store Administrative Assistant Relationship Specialty Start Date End Date Clinic - [facility] [address] [place] [address] PCP - General Clinic 10/03/22 07/14/23 System, Provider Not In PCP - General Clinic 07/15/23 [place] [address] [place] [address] [place] [address] Dermatology 12/29/15 Burton Duncan MD [address] [place] [address] Assigned Musculoskeletal Provider 12/19/21 07/21/23 aPt Cole APRN BOLT CUTTER [address] [place] [address] Nurse Practitioner 01/19/22 Yohana Estes PA-C [address] [place] [address] Assigned PCP 05/08/22 06/22/23 Letha Manzanares MD [address] [place] [address] MD Ophthalmology 03/25/23 Corby Centeno MD [address] [place] [address] MD Dermatology 03/29/23 Cynthia Dubon MD [address] [place] [address]752 Cardiovascular Disease 04/19/23 Letha Manzanares MD [address] [place] [address] 72070 Assigned Surgical Provider 04/23/23 11/19/23 Wilma Saba MD [address] [place] [address] [address] Assigned OBGYN Provider 04/09/23 Jeannette Jean Baptiste NP [address] [place] [address] 328065 Assigned PCP 06/23/23 Cynthia Dubon MD [address] [place] [address] 020685 Assigned Heart and Vascular Provider 07/01/23 Corby Centeno MD [address] [place] [address] 527215 Assigned Surgical Provider 11/20/23 documented as of this encounter
--- OUTSIDE RECORDS SUMMARY | 2023-12-10 21:05 | XMS_ITS | Encounter Summary ---
Author Organization [place] Address [address] [facility] [place] [address] Care Team Providers Care Financial Aid Advisor Name Role Phone BetteShirlene MD Unavailable [facility] Primary Care Provider Heidi Gunn PA-C Unavailable [phone] Burton Duncan MD Unavailable [phone] Pat Cole APRN QUILL LAYER Unavailable [phone] Yohana Estes-C Unavailable [phone] Letha Manzanares MD Unavailable [phone] Corby Centeno MD Unavailable [phone] Cynthia Dubon MD Unavailable [phone] Letha Manzanares MD Unavailable [phone] Wilma Saba MD Unavailable [phone] Jeannette Jean Baptiste NP Unavailable [phone] Cynthia Dubon MD Unavailable [phone] System, Provider Not In Primary Care Provider Un available Corby Centeno MD Unavailable Reason for Visit * Reason Onset Date Comments Referral 01/12/2022 Encounter Details Date Type Department Care Team (Late st Contact Info) Description 01/12/[address]phone [place] [address] [place] [address] Lisa Monroe APRN QUILL LAYER [address] [place], [place] [phone] Referral Social History Tobacco Use Types Packs/Day [...] vm sent my chart msg. Alida Grimm X Ray Equipment Servicer [facility] * Telephone Encounter - Luz Damon RN - 01/18/2022 3:03 PM CDT Please assist in scheduling a new patient appointment with Pat Cole CNP at the [facility]. LASHONDA Hanson, RN Production Department Supervisor [facility] * Telephone Encounter - Danielle Gil - 01/12/2022 3:22 PM CDT [facility] Call [facility] Phone Message May a detailed message be left on voicemail: yes Reason for Call: Pt was previously seen by Lisa Monroe in [place] in May of 2020. She is now being referred back to the pain clinic. Since she is new Pt and they are not accepting New Pt's in [place], Pt is wondering if we can make an exception and see her in [place] by Lisa. Thanks. documented in this encounter Plan of Treatment Upcoming Encounters Date Type Department Care Team (Late st Contact Info) Description 12/20/2023 10:45 AM CDT Office Visit [facility] [address] [phone] Corby Centeno MD [address] [place] [address] documented as of this encounter Visit Diagnoses Not on filedocumented in this encounter Additional Health Concerns Assessment Noted Time PHQ-9 Depression Total Score: 5 05/06/20 21 7:33 AM BARBER SHOP OPERATOR documented as of this encounter Care Teams Financial Aid Advisor Relationship Specialty Start Date End Date Clinic - [facility] [address] [place] [address] PCP - General Clinic 10/03/22 07/14/23 System, Provider Not In PCP - General Clinic 07/15/23 Shirlene Amos MD [address] [facility] [place] [address] Dermatology 12/29/15 Heidi Gunn, PA-C [address] [place] [address] Assigned PCP 03/08/21 05/07/22 Burton Duncan MD [address] [place] [address] 861771 Assigned Musculoskeletal Provider 12/19/21 07/21/23 Pat Cole APRN QUILL LAYER [address] [place] [address] [phone] Nurse Practitioner 01/19/22 Yohana Estes PA-C [address] [place] [address] 416360 Assigned PCP 05/08/22 06/22/23 Letha Manzanares MD [address] [place] [address] Ophthalmology 03/25/23 Corby Centeno MD [address] [place] [address] Dermatology 03/29/23 Cynthia Dubon MD [address] [place] [address] [phone] Cardiovascular Disease 04/19/23 Letha Manzanares MD [address] [place] [address] 629005 Assigned Surgical Provider 04/23/23 11/19/23 Wilma Saba MD [address] [place] [address] 027874 Assigned OBGYN Provider 04/09/23 Jeannette Jean Baptiste, POWDER LINE REPAIRER [address] [address] Assigned PCP 06/23/23 Cynthia Dubon MD 9 [place], [place] 381155 Assigned Heart and Vascular Provider 07/01/23 Corby Centeno MD [address] [place] [address] 077555 Assigned Surgical Provider 11/20/23 documented as of this encounter
--- OUTSIDE RECORDS SUMMARY | 2023-12-10 21:05 | XMS_ITS | Encounter Summary ---
Author Organization [place] Address [address] [place] [address] Care Team Providers Care Computer Systems Auditor Name Role Phone BetteShilrene MD Unavailable [facility] Primary Care Provider Heidi Gunn PA-C Unavailable [phone] Burton Duncan MD Unavailable [phone] Pat Cole APRN INDUSTRY ANALYST Unavailable [phone] Yohana Estes-C Unavailable [phone] Letha Manzanares MD Unavailable Corby Centeno MD Unavailable [phone] Cynthia Dubon MD Unavailable [phone] Letha Manzanares MD Unavailable [phone] iWlma Saba MD Unavailable [phone] Jeannette Jean Baptiste NP Unavailable [phone] Cynthia Dubon MD Unavailable [phone] System, Provider Not In Primary Care Provider Un available Corby Centeno MD Unavailable [phone] Reason for Visit * Reason Onset Date Comments Patient Request 03/01/2022 Encounter Details Date Type Department Care Team ([facility] Contact Info) Description 03/01/[address] [facility] [address] [facility] IN[facility]ES [facility] [place] [phone] Pat Cole APRN [facility] [address] [facility] [place] [address] Patient Request Social History Tobacco Use Types [...] on 03/01/2022 at 8:00 AM by Winsome Rosario [place] documented in this encounter Plan of Treatment Upcoming Encounters Date Type Department Care Team (Late Contact Info) Description 12/20/2023 10:45 AM CDT Office Visit [facility] [address] [phone] Corby Centeno MD [address] [place] [address] documented as of this encounter Visit Diagnoses Not on filedocumented in this encounter Additional Health Concerns Assessment Noted Time PHQ-9 Depression Total Score: 5 05/06/20 21 7:33 AM JOURNEYMAN POWER PLANT OPERATOR documented as of this encounter Care Teams Computer Systems Auditor Relationship Specialty Start Date End Date Clinic - [facility] [address] [place] [address] PCP - General Clinic 10/03/22 07/14/23 System, Provider Not In PCP - General Clinic 07/15/23 Shirlene Amos MD [address] [place] [address] [place] [address] Dermatology 12/29/15 Heidi Gunn PA-C [address] [place] [address] Assigned PCP 03/08/21 05/07/22 Burton Duncan MD [address] [place] [address] Assigned Musculoskeletal Provider 12/19/21 07/21/23 Pat Cole APRN INDUSTRY ANALYST [address] [place] [address] Nurse Practitioner 01/19/22 Yohana Estes PA-C [facility] [place] [address] Assigned PCP 05/08/22 06/22/23 Letha Manzanares MD [address] [place] [address] 899455 MD Ophthalmology 03/25/23 Corby Centeno MD [address] [place] [address] 622825 MD Dermatology 03/29/23 Cynthia Dubon MD [address] [place] [address] 198735 Cardiovascular Disease 04/19/23 Letha Manzanares MD [address] [place] [address] 279405 Assigned Surgical Provider 04/23/23 11/19/23 Wilma Saba MD [address] 943194 Assigned OBGYN Provider 04/09/23 Jeannette Jean Baptiste CONVEYOR LINE BAKERY WORKER [address] [place] [address] 656885 Assigned PCP 06/23/23 Cynthia Dubon MD [address] [place] [address] 435765 Assigned Heart and Vascular Provider 07/01/23 Corby Centeno MD [address] [place] [address]285 Assigned Surgical Provider 11/20/23 documented as of this encounter
--- OUTSIDE RECORDS SUMMARY | 2023-12-10 21:05 | XMS_ITS | Encounter Summary ---
Author Organization [place] Address [address] [facility] [place] [address] Care Team Providers Care Nuclear Supervising Operator Name Role Phone BetteShirlene MD Unavailable [facility] Primary Care Provider Heidi Gunn PA-C Unavailable [phone] Burton Duncan MD Unavailable [phone] Pat Cole APRN ACOUSTIC ENGINEER Unavailable [phone] Yohana Estes-C Unavailable [phone] Letha Manzanares MD Unavailable [phone] Corby Centeno MD Unavailable [phone] Cynthia Dubon MD Unavailable [phone] Letha Manzanares MD Unavailable [phone] Wilma Saba MD Unavailable [phone] Jeannette Jean Baptiste NP Unavailable [phone] Cynthia Dubon MD Unavailable [phone] System, Provider Not In Primary Care Provider Un available Corby Centeno MD Unavailable Encounter Details Date Type Department Care Team (Late st Contact Info) Description 01/18/2022 MyC Medical Advice [facility] [address] [place] [phone] [facility] Social History Tobacco Use Types Packs/Day Years [...] Description 12/20/2023 10:45 AM CDT Office Visit [facility] All[facility] Clinic [address] [phone] Corby Centeno MD [address] [place] [address] documented as of this encounter Visit Diagnoses Not on filedocumented in this encounter Additional Health Concerns Assessment Noted Time PHQ-9 Depression Total Score: 5 05/06/20 21 7:33 AM PRODUCE SHIPPER documented as of this encounter Care Teams Nuclear Supervising Operator Relationship Specialty Start Date End Date Clinic - [facility] [address] [place] [address] PCP - General Clinic 10/03/22 07/14/23 System, Provider Not In PCP - General Clinic 07/15/23 Shirlene Amos MD [address] [facility] [place] [address] Dermatology 12/29/15 Heidi Gunn PA-C [address] [place] [address] Assigned PCP 03/08/21 05/07/22 Burton Duncan MD [address] [place] [address] 320441 Assigned Musculoskeletal Provider 12/19/21 07/21/23 Pat Cole APRN ACOUSTIC ENGINEER [address] [place] [address] 570805 Nurse Practitioner 01/19/22 Yohana Estes PA-C [address] [place], [place] 016970 Assigned PCP 05/08/22 06/22/23 Letha Manzanares MD [address] [place] [address] 382625 Ophthalmology 03/25/23 Corby Centeno MD [address] [place] [address] 342875 Dermatology 03/29/23 Cynthia Dubon MD [address] [place] [address] 292095 Cardiovascular Disease 04/19/23 Letha Manzanares MD [address] [place] [address] Assigned Surgical Provider 04/23/23 11/19/23 Wilma Saba MD [address] [place] [address] Assigned OBGYN Provider 04/09/23 Jeannette Jean Baptiste NP [address] [place] [address] Assigned PCP 06/23/23 Cynthia Dubon MD [address] [place] [address] 860945 Assigned Heart and Vascular Provider 07/01/23 Corby Centeno MD [address] [place] [address] 222915 Assigned Surgical Provider 11/20/23 documented as of this encounter
--- OUTSIDE RECORDS SUMMARY | 2023-12-10 21:05 | XMS_ITS | Encounter Summary ---
Author Organization [place] Address [address] [facility] [place] [address] Care Team Providers Care Cement Paver Name Role Phone BetteShirlene MD Unavailable [phone] [facility] Primary Care Provider Burton Duncan MD Unavailable [phone] Pat Cole APRN BEAMER HAND Unavailable [phone] Yohana Estes PA-C Unavailable [phone] Letha Manzanares MD Unavailable [phone] Corby Centeno MD Unavailable [phone] Cynthia Dubon MD Unavailable Letha Manzanares MD Unavailable [phone] Wilma Saba MD Unavailable [phone] Jeannette Jean Baptiste NP Unavailable [phone] Cynthia Dubon MD Unavailable [phone] System, Provider Not In Primary Care Provider Un available Corby Centeno MD Unavailable [phone] Encounter Details Date Type Department Care Team (Late Contact Info) Description 04/29/2023 MyC Medical Advice [facility] [address]rd [address] [facility] [address] [place] [phone] Luz Alva CMA Social History Tobacco Use [...] in an abandoned building, in an overnight nursing home, or couch-surfing.) Yes 02/22/2023 Are you [...] Description 12/20/2023 10:45 AM CDT Office Visit [facility] All[facility] Clinic [place] [address] [place] [phone] Corby Centeno MD [address] [place] [address] documented as of this encounter Visit Diagnoses Not on filedocumented in this encounter Additional Health Concerns Assessment Noted Time PHQ-9 Depression Total Score: 1 04/07/20 7:51 AM ELECTRONIC NEWS GATHERING EDITOR documented as of this encounter Care Teams Cement Paver Relationship Specialty Start Date End Date Clinic - [facility] [address] [place] [address] PCP - General Clinic 10/03/22 07/14/23 System, Provider Not In PCP - General Clinic 07/15/23 Shirlene Amos MD [address] [place] [address] [place] [address] Dermatology 12/29/15 Burton Duncan MD [address] [place], [place] 496901 Assigned Musculoskeletal Provider 12/19/21 07/21/23 Pat Cole APRN BEAMER HAND [address] [place] [address] 899775 Nurse Practitioner 01/19/22 Yohana Estes PA-C [address] [place], [place] 410180 Assigned PCP 05/08/22 06/22/23 Letha Manzanares MD [address] [place], [place] 488635 Ophthalmology 03/25/23 Corby Centeno MD [address] [place] [address] 385495 Dermatology 03/29/23 Cynthia Dubon MD [address] [place] [address] 126975 Cardiovascular Disease 04/19/23 Letha Manzanares MD [address] [place] [address] 052785 Assigned Surgical Provider 04/23/23 11/19/23 Wilma Saba MD [address] 352664 Assigned OBGYN Provider 04/09/23 Jeannette Jean Baptiste NP [address] [place] [address] 187325 Assigned PCP 06/23/23 Cynthia Dubon MD [address] [place] [address] 377205 Assigned Heart and Vascular Provider 07/01/23 Corby Centeno MD [address] [place] [address]2722 Assigned Surgical Provider 11/20/23 documented as of this encounter
--- OUTSIDE RECORDS SUMMARY | 2023-12-10 21:05 | XMS_ITS | Encounter Summary ---
Author Organization [place] Address [address] [place] [address] Care Team Providers Care Rocket Motor Tester Name Role Phone BetteShirlene MD Unavailable [phone] Pat Cole APRN CAUL FAT PULLER Unavailable [phone] Letha Manzanares MD Unavailable [phone] Corby Centeno MD Unavailable [phone] Cynthia Dubon MD Unavailable [phone] Letha Manzanares MD Unavailable [phone] Wilma Saba MD Unavailable [phone] Jeannette Jean Baptiste NP Unavailable [phone] Cynthia Dubon MD Unavailable [phone] System, Provider Not In Primary Care Provider Un available Reason for Visit * Reason Onset Date Comments Previsit 10/18/2023 Encounter Details Date Type Department Care Team (Late st Contact Info) Description 10/18/2023 PRE VISIT [facility] [address] [address] Corby Centeno MD [address] [place] [address] Previsit Social History Tobacco Use Types Packs/Day [...] in an abandoned building, in an overnight half-way, or couch-surfing.) Yes 02/22/2023 Are you worried [...] AM CDT Office Visit [facility] [address] [phone] Corby Centeno MD [address] [place] [address] 668705 documented as of this encounter Visit Diagnoses Not on filedocumented in this encounter Additional Health Concerns Assessment Noted Time PHQ-9 Depression Total Score: 1 04/07/20 23 7:51 AM ARBOR END MAINSPRING FORMER documented as of this encounter Care Teams Rocket Motor Tester Relationship Specialty Start Date End Date System, Provider Not In PCP - General Clinic 07/15/23 Shirlene Amos MD [address] [place] [address] [place] [address] Dermatology 12/29/15 Pat Cole APRN CAUL FAT PULLER [address] [place] [address] 325365 Nurse Practitioner 01/19/22 Letha Manzanares MD [address] [place] [address] 576485 Ophthalmology 03/25/23 Corby Centeno MD [address] [place] [address] 68331 Dermatology 03/29/23 Cynthia Dubon MD [address] [place] [address] Cardiovascular Disease 04/19/23 Letha Manzanares MD [address] [place] [address]145 Assigned Surgical Provider 04/23/23 11/19/23 Wilma Saba MD [address] [place] [address] 87865 Assigned OBGYN Provider 04/09/23 Jeannette Jean Baptiste NP [address] [place] [address] Assigned PCP 06/23/23 Cynthia Dubon MD [address] [place] [address] 61545 Assigned Heart and Vascular Provider 07/01/23 documented as of this encounter
--- OUTSIDE RECORDS SUMMARY | 2023-12-10 21:05 | XMS_ITS | Encounter Summary ---
Author Organization [place] Address [address] [facility] [place] [address] Care Team Providers Care Assistant Bookkeeper Name Role Phone BetteShirlene MD Unavailable [facility] Primary Care Provider Franklyn Chadwick DPM Unavailable [phone] Heidi Gunn PA-C Unavailable [phone] Sukumar Villarreal MD Unavailable Burton Duncan MD Unavailable [phone] Pat Cole APRN PIPELINE INTEGRITY ENGINEER Unavailable [phone] Yohana Estes PA-C Unavailable [phone] Letha Manzanares MD Unavailable [phone] Corby Centeno MD Unavailable [phone] Cynthia Dubon MD Unavailable [phone] Letha Manzanares MD Unavailable [phone] Wilma Saba MD Unavailable [phone] Jeannette Jean Baptiste NP Unavailable [phone] Cynthia Dubon MD Unavailable [phone] System, Provider Not In Primary Care Provider Un available Corby Centeno MD Unavailable [phone] Encounter Details Date Type Department Care Team (Late st Contact Info) Description 11/11/2021 MyC Medical Advice [facility] [address] [place], [place] [address]christina [place] [address] Geraldo Lui MA Social History [...] Office Visit [facility] Allergy Clinic [address] [address] Corby Centeno MD [address] [place] [address] documented as of this encounter Visit Diagnoses Not on filedocumented in this encounter Additional Health Concerns Assessment Noted Time PHQ-9 Depression Total Score: 5 05/06/20 21 7:33 AM LODGING MANAGER documented as of this encounter Care Teams Assistant Bookkeeper Relationship Specialty Start Date End Date Clinic - [facility] [address] [place], [place] [phone] PCP - General Clinic 10/03/22 07/14/23 System, Provider Not In PCP - General Clinic 07/15/23 Shirlene Amos MD [address] [place] [address] Dermatology 12/29/15 Franklyn Chadwick DPM [address] [place] [address] [place] [address] Assigned Musculoskeletal Provider 05/18/20 11/13/21 Heidi Gunn PA-C [address] [place] [address] Assigned PCP 03/08/21 05/07/22 Sukumar Villarreal MD [address] [place] [address] Assigned Musculoskeletal Provider 11/14/21 12/18/21 Burton Duncan MD [address] [place] [address]244 Assigned Musculoskeletal Provider 12/19/21 07/21/23 Pat Cole APRN PIPELINE INTEGRITY ENGINEER [address] [place] [address] 30871 Nurse Practitioner 01/19/22 Yohana Estes PA-C [address] [place] [address] 15266 Assigned PCP 05/08/22 06/22/23 Letha Manzanares MD 6 [place] [address] MD Ophthalmology 03/25/23 Corby Centeno MD [address] [place] [address] 844265 MD Dermatology 03/29/23 Cynthia Dubon MD [address] [place] [address] 790445 Cardiovascular Disease 04/19/23 Letha Manzanares MD 6 [place], [place] 725425 Assigned Surgical Provider 04/23/23 11/19/23 Wilma Saba MD [address] [address] Assigned OBGYN Provider 04/09/23 Jeannette Jean Baptiste NP [address] [place] [address] 344995 Assigned PCP 06/23/23 Cynthia Dubon MD [address] [place] [address] 986055 Assigned Heart and Vascular Provider 07/01/23 Corby Centeno MD [address] [place] [address] 602485 Assigned Surgical Provider 11/20/23 documented as of this encounter
--- OUTSIDE RECORDS SUMMARY | 2023-12-10 21:05 | XMS_ITS | Encounter Summary ---
Author Organization [place] Address [address] [facility] [place] [address] Care Team Providers Care Aircraft Skin Burnisher Name Role Phone BetteShirlene MD Unavailable [phone] [facility] Primary Care Provider Burton Duncan MD Unavailable [phone] Pat Cole APRN HOUSE NURSE Unavailable [phone] Yohana Estes PA-C Unavailable [phone] Letha Manzanares MD Unavailable [phone] Corby Centeno MD Unavailable [phone] Cynthia Dubon MD Unavailable Letha Manzanares MD Unavailable [phone] Wilma Saba MD Unavailable [phone] Jeannette Jean Baptiste NP Unavailable [phone] Cynthia Dubon MD Unavailable System, Provider Not In Primary Care Provider Un available Corby Centeno MD Unavailable [phone] Reason for Visit * Reason Onset Date Comments Appointment 04/07/2023 IUD under anesth esia Encounter Details Date Type Department Care Team (Late st Contact Info) Description 04/07/2023 Telephone [facility] [place] [address] 3rd Floor,[address] [place] [facility] [address] [place] [address] Wilma Saba MD [address] [place] [address] Appointment (IUD under anesthesia ) [...] encounter Miscellaneous Notes * Telephone Encounter - DeonteKeke dunne - 04/07/2023 12:21 PM CST M [facility] Call Center Phone Message May a detailed message be left on voicemail: yes Reason for Call: Appointment Intake Referring Provider Name: Jeannette Jean Baptiste NP Diagnosis and/or Symptoms: IUD placement under anesthesia Please call pt to schedule an IUD placement under anesthesia, thank you! Action Taken: Other: joselyn cleaner furniture Screening: Not Applicable LE FRAME SHAPER documented in this encounter Plan of Treatment Upcoming Encounters Date Type Department Care Team ([facility] st Contact Info) Description 12/20/2023 10:45 AM CDT Office Visit [facility] [address] [phone] Corby Centeno MD [address] [place] [address] [phone] documented as of this encounter Visit Diagnoses Not on filedocumented in this encounter Additional Health Concerns Assessment Noted Time PHQ-9 Depression Total Score: 1 04/07/20 7:51 AM BUCKLE FRAME SHAPER documented as of this encounter Care Teams Aircraft Skin Burnisher Relationship Specialty Start Date End Date Clinic - [facility] [address] [place] [address] PCP - General Clinic 10/03/22 07/14/23 System, Provider Not In PCP - General Clinic 07/15/23 Shirlene Amos MD [address] [place] [address] Dermatology 12/29/15 Burton Duncan MD [address] [place] [address] Assigned Musculoskeletal Provider 12/19/21 07/21/23 Pat Cole APRN CNP [address] [place] [address] 18662 Nurse Practitioner 01/19/22 Yohana Estes PA-C [address] [place] [address] 111890 Assigned PCP 05/08/22 06/22/23 Letha Manzanares MD [address] [place] [address] 701195 Ophthalmology 03/25/23 Corby Centeno MD [address] [place] [address] 835325 Dermatology 03/29/23 Cynthia Dubon MD [address] [place] [address] 177155 Cardiovascular Disease 04/19/23 Letha Manzanares MD [address] [place] [address] 936085 Assigned Surgical Provider 04/23/23 11/19/23 Wilma Saba MD [address] [place], [place] [phone] Assigned OBGYN Provider 04/09/23 Jeannette Jean Baptiste NP [address] [place] [address] Assigned PCP 06/23/23 Cynthia Dubon MD [address] [place], [place] 216375 Assigned Heart and Vascular Provider 07/01/23 Corby Centeno MD [address] [place] [address] Assigned Surgical Provider 11/20/23 documented as of this encounter
--- OUTSIDE RECORDS SUMMARY | 2023-12-10 21:05 | XMS_ITS | Encounter Summary ---
Author Organization [place] Address [address] [facility] [place] [address] Care Team Providers Care Weather Reporter Name Role Phone BetteShirlene MD Unavailable [facility] Primary Care Provider Heidi Gunn PA-C Unavailable [phone] Burton Duncan MD Unavailable [phone] Pat Cole APRN METAL PICKLING EQUIPMENT OPERATOR Unavailable [phone] Yohana Estes-C Unavailable [phone] Letha Manzanares MD Unavailable [phone] Corby Centeno MD Unavailable [phone] Cynthia Dubon MD Unavailable [phone] Letha Manzanares MD Unavailable [phone] Wilma Saba MD Unavailable [phone] Jeannette Jean Baptiste NP Unavailable [phone] Cynthia Dubon MD Unavailable [phone] System, Provider Not In Primary Care Provider Un available Corby Centeno MD Unavailable Reason for Visit * Reason Onset Date Comments Procedure 03/01/2022 bilateral lumbar 3,4,5 medial branch nerve blocks #1 with plan to proceed to RFA Encounter Details Date Type Department Care Team (Late st Contact Info) Description 03/01/2022 Telephone [facility] [address] [facility] [place] [address] Pat Cole, KATHLEEN METAL PICKLING EQUIPMENT OPERATOR [address] [facility] [place] [address] Procedure ( bilateral lumbar 3,4,5 medial branch [...] be done at which interventional clinic site? [facility] Procedure ordered by Dr. Rice Procedure ordered? Lumbar Medial Branch Block What insurance would patient like us to bill for this procedure? [employer] ?? MEDICA: REQUIRES A PA FOR BOTH MBB ?? Worker's comp- Any injection DO NOT SCHEDULE and route to Ritu Vicente ?? [employer] insurance - If scheduling an [...] PA is needed ?? IF SCHEDULING IN [place] AND NEEDS A PA, IT IS OKAY TO SCHEDULE. [place] HANDLES THEIR OWN PA'S AFTER THE PATIENT [...] route to Yelena Begum and PM&R Nurse [[id number]] Is an transitional living specialist needed? No Patient has a drive home? [...] and note in scheduling comments.) Allergies: Mold, Ponce [nuts], Claritin [loratadine], Flexeril [cyclobenzaprine], Imitrex [sumatriptan], and Morphine Does patient have an MRI/CT? YES: 2020 Check Procedure Scheduling Grid to see if required. ?? Was the MRI done within the last 3 years? Yes ?? If yes, where was the MRI done i.e.[facility], [facility], [place], [facility] etc? [facility] ?? If no, do not schedule and route to nursing/ Dr. Beck's Team ?? If MRI was not done at [facility], [facility] or [facility] Imaging do NOT schedule and route to [...] day of the procedu re, please call [phone] to reschedule. YES: Reminders: ?? If you [...] 10:45 AM CDT Office Visit [facility] [address] [address] Corby Centeno MD [address] [place] [address] documented as of this encounter Visit Diagnoses Not on filedocumented in this encounter Additional Health Concerns Assessment Noted Time PHQ-9 Depression Total Score: 5 05/06/20 21 7:33 AM YARN MERCERIZER OPERATOR HELPER documented as of this encounter Care Teams Weather Reporter Relationship Specialty Start Date End Date Clinic - [facility] [address] [place] [address] PCP - General Clinic 10/03/22 07/14/23 System, Provider Not In PCP - General Clinic 07/15/23 Shirlene Amos MD [address] [facility] [place] [address] Dermatology 12/29/15 Heidi Gunn PA-C [address] [place] [address] Assigned PCP 03/08/21 05/07/22 Burton Duncan MD [address] [place] [address] Assigned Musculoskeletal Provider 12/19/21 07/21/23 Pat Cole APRN METAL PICKLING EQUIPMENT OPERATOR [address] [place] [address] 989795 Nurse Practitioner 01/19/22 Yohana Estes PA-C [address] [place] [address] Assigned PCP 05/08/22 06/22/23 Letha Manzanares MD [address] [place] [address] 596595 Ophthalmology 03/25/23 Corby Centeno MD [address] [place] [address] 784135 Dermatology 03/29/23 Cynthia Dubon MD [address] [place] [address] 133285 Cardiovascular Disease 04/19/23 Letha Manzanares MD [address] [place] [address] 954465 Assigned Surgical Provider 04/23/23 11/19/23 Wilma Saba MD [address] [place] [address] Assigned OBGYN Provider 04/09/23 Jeannette Jean Baptiste NP [address] [address] Assigned PCP 06/23/23 Cynthia Dubon MD [address] [place] [address] 479355 Assigned Heart and Vascular Provider 07/01/23 Corby Centeno MD [address] [place] [address] 035515 Assigned Surgical Provider 11/20/23 documented as of this encounter
--- OUTSIDE RECORDS SUMMARY | 2023-12-10 21:05 | XMS_ITS | Encounter Summary ---
Author Organization [place] Address [address] [facility] [place] [address] Care Team Providers Care Fluxer Name Role Phone BetteShirlene MD Unavailable [phone] [facility] Primary Care Provider Burton Duncan MD Unavailable [phone] Pat Cole APRN STONE RIGGER Unavailable [phone] Yohana Estes PA-C Unavailable [phone] Letha Manzanares MD Unavailable [phone] Corby Centeno MD Unavailable [phone] Cynthia Dubon MD Unavailable [phone] Letha Manzanares MD Unavailable [phone] Wilma Saba MD Unavailable [phone] Jeannette Jean Baptiste NP Unavailable [phone] Cynthia Dubon MD Unavailable [phone] System, Provider Not In Primary Care Provider Un available Corby Centeno MD Unavailable [phone] Encounter Details Date Type Department Care Team (Late st Contact Info) Description 12/14/2022 MyC Medical Advice [facility] [address] [place] [address] [address] [place] [phone] [facility] Social History Tobacco Use Types Packs/Day [...] Office Visit [facility] [address] [phone] Corby Centeno MD [address] [place] [address] documented as of this encounter Visit Diagnoses Not on filedocumented in this encounter Additional Health Concerns Assessment Noted Time PHQ-9 Depression Total Score: 1 10/19/19 2:57 PM CDT documented as of this encounter Care Teams Fluxer Relationship Specialty Start Date End Date Clinic - [facility] [address] [place] [address] PCP - General Clinic 10/03/22 07/14/23 System, Provider Not In PCP - General Clinic 07/15/23 Shirlene Amos MD [address] [facility] [place] [address] Dermatology 12/29/15 Burton Duncan MD [address] [place] [address] Assigned Musculoskeletal Provider 12/19/21 07/21/23 Pat Cole APRN STONE RIGGER [address] [place] [address] Nurse Practitioner 01/19/22 Yohana Estes PA-C [address] [place] [address] Assigned PCP 05/08/22 06/22/23 Letha Manzanares MD [address] [place] [address] 708945 Ophthalmology 03/25/23 Corby Centeno MD [address] [place] [address] 629085 Dermatology 03/29/23 Cynthia Dubon MD [address] [place] [address] 723985 Cardiovascular Disease 04/19/23 Letha Manzanares MD [address] [place] [address] 709975 Assigned Surgical Provider 04/23/23 11/19/23 Wilma Saba MD [address] [place] [address] [phone] Assigned OBGYN Provider 04/09/23 Jeannette Jean Baptiste, STAIN DIPPER [address] [place] [address] 982985 Assigned PCP 06/23/23 Cynthia Dubon MD 9 [place] [address] Assigned Heart and Vascular Provider 07/01/23 Corby Centeno MD [address] [place] [address] Assigned Surgical Provider 11/20/23 documented as of this encounter
--- OUTSIDE RECORDS SUMMARY | 2023-12-10 21:05 | XMS_ITS | Encounter Summary ---
Author Organization [place] Address [address] [facility] [address] Care Team Providers Care Cartographic Designer Name Role Phone BetteShirlene MD Unavailable [facility] Primary Care Provider Heidi Gunn PA-C Unavailable [phone] Burton Duncan MD Unavailable [phone] Pat Cole APRN CARBON FURNACE OPERATOR HELPER Unavailable [phone] Yohana Estes-C Unavailable [phone] Letha Manzanares MD Unavailable [phone] Corby Centeno MD Unavailable [phone] Cynthia Dubon MD Unavailable [phone] Letha Manzanares MD Unavailable [phone] Wilma Saba MD Unavailable [phone] Jeannette Jean Baptiste NP Unavailable [phone] Cynthia Dubon MD Unavailable [phone] System, Provider Not In Primary Care Provider Un available Corby Centeno MD Unavailable Encounter Details Date Type Department Care Team (Late st Contact Info) Description 02/15/2022 MyC Medical Advice [facility] [address] [place] [phone] [facility] [facility] Social History Tobacco Use Types [...] Description 12/20/2023 10:45 AM CDT Office Visit [facility] Allergy Clinic [address] [phone] Corby Centeno MD [address] [place] [address] documented as of this encounter Visit Diagnoses Not on filedocumented in this encounter Additional Health Concerns Assessment Noted Time PHQ-9 Depression Total Score: 5 05/06/20 21 7:33 AM HEAD MACHINE FEEDER documented as of this encounter Care Teams Cartographic Designer Relationship Specialty Start Date End Date Clinic - [facility] [address] [place] [address] PCP - General Clinic 10/03/22 07/14/23 System, Provider Not In PCP - General Clinic 07/15/23 Shirlene Amos MD [address] [facility] [place] [address] Dermatology 12/29/15 Heidi Gunn PA-C [address] [place] [address] Assigned PCP 03/08/21 05/07/22 Burton Duncan MD [address] [place] [address] 375581 Assigned Musculoskeletal Provider 12/19/21 07/21/23 Pat Cole APRN CARBON FURNACE OPERATOR HELPER [address] [place] [address] 496305 Nurse Practitioner 01/19/22 Yohana Estes PA-C [address] [place], [place] 787190 Assigned PCP 05/08/22 06/22/23 Letha Manzanares MD [address] [place] [address] [phone] Ophthalmology 03/25/23 Corby Centeno MD [address] [place] [address] 995065 Dermatology 03/29/23 Cynthia Dubon MD [address] [place] [address] 787745 Cardiovascular Disease 04/19/23 Letha Manzanares MD [address] [place] [address] 462193 Assigned Surgical Provider 04/23/23 11/19/23 Wilma Saba MD [address] [place] [address] Assigned OBGYN Provider 04/09/23 Jeannette Jean Baptiste NP [address] [place] [address] Assigned PCP 06/23/23 Cynthia Dubon MD [address] [place] [address] 388955 Assigned Heart and Vascular Provider 07/01/23 Corby Centeno MD [address] [place] [address] 961835 Assigned Surgical Provider 11/20/23 documented as of this encounter
--- OUTSIDE RECORDS SUMMARY | 2023-12-10 21:05 | XMS_ITS | Encounter Summary ---
Author Organization [place] Address [address] [facility] [place] [address] Care Team Providers Care Airways Operations Specialist Name Role Phone BetteShirlene MD Unavailable [phone] Pat Cole APRN STRATEGIC PARTNERSHIP MANAGER Unavailable [phone] Letha Manzanares MD Unavailable [phone] Corby Centeno MD Unavailable [phone] Cynthia Dubon MD Unavailable [phone] Letha Manzanares MD Unavailable [phone] Wilma Saba MD Unavailable [phone] Jeannette Jean Baptiste NP Unavailable [phone] Cynthia Dubon MD Unavailable [phone] System, Provider Not In Primary Care Provider Un available Corby Centeno MD Unavailable [phone] Encounter Details Date Type Department Care Team (Late st Contact Info) Description 11/09/2023 [facility] All[facility] Clinic [address] [phone] Rosalind Jacobo, RN Social History [...] Answer Date Recorded Do you have housing? (Housian g is defined as stable permanent housing [...] Description 12/20/2023 10:45 AM CDT Office Visit [facility] [address] [phone] Corby Centeno MD [address] [place] [address] documented as of this encounter Visit Diagnoses Not on filedocumented in this encounter Additional Health Concerns Assessment Noted Time PHQ-9 Depression Total Score: 1 04/07/20 23 7:51 AM SAMPLE MOUNTER documented as of this encounter Care Teams Airways Operations Specialist Relationship Specialty Start Date End Date System, Provider Not In PCP - General Clinic 07/15/23 Shirlene Amos MD [address] [facility] [address] [place] [phone] Dermatology 12/29/15 Pat Cole APRN STRATEGIC PARTNERSHIP MANAGER [address] [place] [address] Nurse Practitioner 01/19/22 Letha Manzanares MD [address] [place] [address] Ophthalmology 03/25/23 Corby Centeno MD [address] [place] [address] Dermatology 03/29/23 Cynthia Dubon MD [address] [place] [address] [phone] Cardiovascular Disease 04/19/23 Letha Manzanares MD [address] [place] [address] 357585 Assigned Surgical Provider 04/23/23 11/19/23 Wilma Saba MD [address] [place] [address] 971604 Assigned OBGYN Provider 04/09/23 Jeannette Jean Baptiste, BROKERAGE BRANCH MANAGER [address] [address] Assigned PCP 06/23/23 Cynthia Dubon MD [address] [place] [address] 289495 Assigned Heart and Vascular Provider 07/01/23 Corby Centeno MD [address] [place] [address] Assigned Surgical Provider 11/20/23 documented as of this encounter
--- OUTSIDE RECORDS SUMMARY | 2023-12-10 21:05 | XMS_ITS | Encounter Summary ---
Author Organization [place] Address [address] [facility] [place] [address] Care Team Providers Care Land Resource Specialist Name Role Phone BetteShirlene MD Unavailable Pat Cole APRN MANDATE RETAIL SERVICE MERCHANDISER Unavailable [phone] Letha Manzanares MD Unavailable [phone] Corby Centeno MD Unavailable [phone] Cynthia Dubon MD Unavailable [phone] eLtha Manzanares MD Unavailable [phone] Wilma Saba MD Unavailable [phone] Jeannette Jean Baptiste NP Unavailable [phone] Cynthia Dubon MD Unavailable [phone] System, Provider Not In Primary Care Provider Un available Reason for Visit * Reason Onset Date Comments Appointment 10/14/2023 Allergy new pt a ppt Encounter Details Date Type Department Care Team (Late st Contact Info) Description 10/14/2023 Telephone [facility] [place] [phone] [facility] 3rd [place] [address] Corby Centeno MD [address] [place] [address] Appointment (Allergy new pt appt) Social History [...] in an abandoned building, in an overnight long term, or couch-surfing.) Yes 02/22/2023 Are you worried [...] pt. Confirmed appt details. Julienne Eugene, Procedure User Interface Developer 10/14/2023 10:48 AM documented in this encounter Plan of Treatment Upcoming Encounters Date Type Department Care Team (Late st Contact Info) Description 12/20/2023 10:45 AM CDT Office Visit [facility] [address] [phone] Corby Centeno MD [address] [place] [address] 735895 documented as of this encounter Visit Diagnoses Not on filedocumented in this encounter Additional Health Concerns Assessment Noted Time PHQ-9 Depression Total Score: 1 04/07/20 23 7:51 AM GROUP INSURANCE SPECIAL AGENT documented as of this encounter Care Teams Land Resource Specialist Relationship Specialty Start Date End Date System, Provider Not In PCP - General Clinic 07/15/23 Shirlene Amos MD [address] [place] [address] [place] [address] Dermatology 12/29/15 Pat Cole APRN MANDATE RETAIL SERVICE MERCHANDISER [address] [place] [address] 180615 Nurse Practitioner 01/19/22 Letha Manzanares MD [address] [place] [address] [phone] Ophthalmology 03/25/23 Corby Centeno MD [address] [place] [address] 759355 Dermatology 03/29/23 Cynthia Dubon MD [address] [place] [address] [phone] Cardiovascular Disease 04/19/23 Letha Manzanares MD [address] [place], [place] 040745 Assigned Surgical Provider 04/23/23 11/19/23 Wilma Saba MD [address] [facility] [address] [place] [address] Assigned OBGYN Provider 04/09/23 Jeannette Jean Baptiste NP [address] [address] Assigned PCP 06/23/23 Cynthia Dubon MD [address] [place], [place] 295525 Assigned Heart and Vascular Provider 07/01/23 documented as of this encounter
--- OUTSIDE RECORDS SUMMARY | 2023-12-10 21:05 | XMS_ITS | Encounter Summary ---
Author Organization [place] Address [address] [facility] [place] [address] Care Team Providers Care Vice President Risk Management Name Role Phone BetteShirlene MD Unavailable [phone] Pat Cole APRN SHELLFISH MEAT SEPARATOR OPERATOR Unavailable [phone] Letha Manzanares MD Unavailable [phone] Corby Centeno MD Unavailable [phone] Cynthia Dubon MD Unavailable [phone] Letha Manzanares MD Unavailable [phone] Wilma Saba MD Unavailable [phone] Jeannette Jean Baptiste NP Unavailable [phone] Cynthia Dubon MD Unavailable [phone] System, Provider Not In Primary Care Provider Un available Corby Centeno MD Unavailable [phone] Encounter Details Date Type Department Care Team (Late st Contact Info) Description 10/14/2023 [facility] [address] [place] [phone] Kristi Stone Social History Tobacco Use Types Packs/Day Years [...] Description 12/20/2023 10:45 AM CDT Office Visit [facility] All[facility] Clinic [address] [phone] Corby Centeno MD [address] [place] [address] documented as of this encounter Visit Diagnoses Not on filedocumented in this encounter Additional Health Concerns Assessment Noted Time PHQ-9 Depression Total Score: 1 04/07/20 23 7:51 AM DATA WAREHOUSE MANAGER documented as of this encounter Care Teams Vice President Risk Management Relationship Specialty Start Date End Date System, Provider Not In PCP - General Clinic 07/15/23 Shirlene Amos MD [address] [place] [address] [place] [address] Dermatology 12/29/15 Pat Cole APRN SHELLFISH MEAT SEPARATOR OPERATOR [address] [place] [address] Nurse Practitioner 01/19/22 Letha Manzanares MD [address] [place] [address] Ophthalmology 03/25/23 Corby Centeno MD [address] [place] [address] Dermatology 03/29/23 Cynthia Dubon MD [address] [place] [address] 914755 Cardiovascular Disease 04/19/23 Letha Manzanares MD [address] [place] [address] 876145 Assigned Surgical Provider 04/23/23 11/19/23 Wilma Saba MD [address] 607604 Assigned OBGYN Provider 04/09/23 Jeannette Jean Baptiste, REVENUE RESEARCH ANALYST [address] [address] Assigned PCP 06/23/23 Cynthia Dubon MD [address] [place] [address] 444605 Assigned Heart and Vascular Provider 07/01/23 Corby Centeno MD [address] [place] [address] 188995 Assigned Surgical Provider 11/20/23 documented as of this encounter
--- OUTSIDE RECORDS SUMMARY | 2023-12-10 21:05 | XMS_ITS | Encounter Summary ---
Author Organization [place] Address [address] [facility] [place] [address] Care Team Providers Care Pan Operator Name Role Phone BetteShirlene MD Unavailable Pat Cole APRN STRAP BUCKLER Unavailable [phone] Letha Manzanares MD Unavailable [phone] Corby Centeno MD Unavailable +[phone] Cynthia Dubon MD Unavailable +[phone] Letha Manzanares MD Unavailable +[phone] Wilma Saba MD Unavailable +[phone] Jeannette Jean Baptiste NP Unavailable +[phone] Cynthia Dubon MD Unavailable [phone] System, Provider Not In Primary Care [...] Office Visit [facility] [address] [address] Corby Centeno MD [address] [place] [address] documented as of this encounter Visit Diagnoses Not on filedocumented in this encounter Additional Health Concerns Assessment Noted Time PHQ-9 Depression Total Score: 1 04/07/20 7:51 AM CLEANING MACHINE OPERATOR documented as of this encounter Care Teams Pan Operator Relationship Specialty Start Date End Date System, Provider Not In PCP - General Clinic 07/15/23 Shirlene Amos MD [address] [place] [address] [place] [address] Dermatology 12/29/15 Pat Cole APRN STRAP BUCKLER [address] [place] [address] 514025 Nurse Practitioner 01/19/22 Letha Manzanares MD [address] [place] [address] 325715 Ophthalmology 03/25/23 Corby Centeno MD [address] [place] [address] 666375 Dermatology 03/29/23 Cynthia Dubon MD [address] [place] [address] 489625 Cardiovascular Disease 04/19/23 Letha Manzanares MD [address] [place] [address] 584885 Assigned Surgical Provider 04/23/23 11/19/23 Wilma Saba MD [address] 441684 Assigned OBGYN Provider 04/09/23 Jeannette Jean Baptiste, ANGEL [address] [address] Assigned PCP 06/23/23 Cynthia Dubon MD [address] [place] [address] Assigned Heart and Vascular Provider 07/01/23 documented as of this encounter
--- OUTSIDE RECORDS SUMMARY | 2023-12-10 21:05 | XMS_ITS | Encounter Summary ---
Author Organization [place] Address [address] [facility] [place] [place] [address] Care Team Providers Care Boiler Maker Name Role Phone BetteShirlene MD Unavailable [phone] [facility] Primary Care Provider Burton Duncan MD Unavailable [phone] Pat Cole APRN COBOL ENGINEER Unavailable +[phone] Yohana Estes PA-C Unavailable [phone] Letha Manzanares MD Unavailable [phone] Corby Centeno MD Unavailable +[phone] Cynthia Dubon MD Unavailable [phone] Letha Manzanares MD Unavailable +[phone] Wilma Saba MD Unavailable +[phone] Jeannette Jean Baptiste NP Unavailable [phone] Cynthia Dubon MD Unavailable [phone] System, Provider Not In Primary Care Provider Un available Corby Centeno MD Unavailable [phone] Encounter Details Date Type Department Care Team (Late st Contact Info) Description 05/11/2023 MyC Medical Advice [facility] [address] 5th [place] [address] Rosa Reyes CMA Social History [...] Description 12/20/2023 10:45 AM CDT Office Visit [facility] [address] [place] [place] [address] Corby Centeno MD [address] [place] [address] 178905 documented as of this encounter Visit Diagnoses Not on filedocumented in this encounter Additional Health Concerns Assessment Noted Time PHQ-9 Depression Total Score: 1 04/07/20 23 7:51 AM EXPERIENCE DESIGNER documented as of this encounter Care Teams Boiler Maker Relationship Specialty Start Date End Date Clinic - [facility] [address] [place] [address] PCP - General Clinic 10/03/22 07/14/23 System, Provider Not In PCP - General Clinic 07/15/23 Shirlene Amos MD [address] [facility] [place] [address] Dermatology 12/29/15 Burton Duncan MD [address] [place], [place] 681511 Assigned Musculoskeletal Provider 12/19/21 07/21/23 Pat Cole APRN CNP [address] [place] [address] 548045 Nurse Practitioner 01/19/22 Yohana Estes PA-C [address] [place], [place] 522680 Assigned PCP 05/08/22 06/22/23 Letha Manzanares MD [address] [place], [place] 143825 Ophthalmology 03/25/23 Corby Centeno MD [address] [place] [address] Dermatology 03/29/23 Cynthia Dubon MD [address] [place] [address] Cardiovascular Disease 04/19/23 Letha Manzanares MD [address] [place] [address] Assigned Surgical Provider 04/23/23 11/19/23 Wilma Saba MD [address] [place] [address] Assigned OBGYN Provider 04/09/23 Jeannette Jean Baptiste NP [address] [place] [address] Assigned PCP 06/23/23 Cynthia Dubon MD [address] [place] [address] Assigned Heart and Vascular Provider 07/01/23 Corby Centeno MD [address] [place] [address]393 Assigned Surgical Provider 11/20/23 documented as of this encounter
--- OUTSIDE RECORDS SUMMARY | 2023-12-10 21:06 | XMS_ITS | Encounter Summary ---
Author Organization [place] Address [address] [facility] [place] [address] Care Team Providers Care Marine Engineering Technicians Name Role Phone BetteShirlene MD Unavailable [phone] Manju Crooks REMOTE OPERATIONS PRODUCER CNM [facility]available [facility] Provider Zaira Queen APRN FIRE ADJUSTER Unavailable Franklyn Chadwick DPM Unavailable +[phone] Eav Echols DO Unavailable +[phone] Heidi Gunn PA-C Unavailable +[phone] Sukumar Villarreal MD Unavailable +[phone] Burton Duncan MD Unavailable +[phone] Pat Cole APRN FIRE ADJUSTER Unavailable [phone] Yohana Estes-C Unavailable +[phone] Letha Manzanares MD Unavailable [phone] Corby Centeno MD Unavailable [phone] Cynthia Dubon MD Unavailable [phone] Letha Manzanares MD Unavailable [phone] Wilma Saba MD Unavailable +[phone] Jeannette Jean Baptiste ANGEL Unavailable +[phone] Cynthia Dubon MD Unavailable [phone] System, Provider Not In Primary Care Provider Un available Corby Centeno MD Unavailable [phone] Reason for Referral * Diagnostic Imaging Ultrasound (Routine) - Closed Specialty Diagnoses / Procedures Referred By Sasha rice Referred To Contact Diagnoses Pelvic cramping Procedures US Pelvic Complete with Transvaginal Zaira Queen APRN FIRE ADJUSTER [address] [place] [address] Referral ID Status Reason Start Date Expiration Date Visits Re quested Visits Authorized [id number] Closed 08/28/2020 08/28/2021 1 1 * (Routine) - Closed Specialty Diagnoses / Procedures Referred By Sasha rice Referred To Contact Gastroenterology Diagnoses LUQ abdominal pain Epigastric pain Zaira Queen APRN FIRE ADJUSTER [address] [place] [address] Referral ID Status Reason Start Date Expiration Date Visits Re quested Visits Authorized [id number] Closed 08/27/2020 08/27/2021 1 1 Scheduling Instructions If EUS or ERCP is selected, it requires clinical review prior to scheduling. Question Answer Procedure: Upper Endoscopy Upper Endoscopy Type: EGD Upper Endoscopy Sedation: Conscious/Moderate Upper Endoscopy Reason for Procedure: LUQ/epigastric pain after eating, CT unremarkable Preferred Location: [facility] Scheduling Instructions: If you have not heard from the scheduling office within 2 business days, please call [phone]. Comments Please be aware that coverage of these services is subject to the terms and limitations of your health insurance plan. Call member services at your health plan with any benefit or coverage questions. If you have not heard from the scheduling office within 2 business days, please call [phone]. Encounter Details Date Type Department Care Team ([facility] Contact Info) Description 08/26/2020 MyC Medical Advice [facility] [address] [facility] [address] [place] [phone] Zaira Queen APRN FIRE ADJUSTER [address] [place] [address] LUQ abdominal pain (Primary Dx); Epigastric pain; [...] Upcoming Encounters Date Type Department Care Team ([facility] Contact Info) Description 12/20/2023 10:45 AM CDT Office Visit [facility] [address] [address] Corby Centeno MD [address] [place] [address] 950265 Scheduled Referrals Name Type Priority Associated Diagnoses [...] seen. JACE HOWARD MD Zaira Queen APRN FIRE ADJUSTER G U S ORDERABLES documented in this encounter Visit [...] documented as of this encounter Care Teams Marine Engineering Technicians Relationship Specialty Start Date End Date Clinic - [facility] [address] [place] [address] PCP - General Clinic 10/03/22 07/14/23 System, Provider Not In PCP - General Clinic 07/15/23 Shirlene Amos MD [address] [place] [address] Dermatology 12/29/15 Manju Crooks APRN CNM Assigned OBGYN Provider 03/21/20 09/19/21 Zaira Queen APRN FIRE ADJUSTER [address] [place] [address] Assigned PCP 05/04/20 03/07/21 Franklyn Chadwick DPM [address] [place] [address] [place] [address] Assigned Musculoskeletal Provider 05/18/20 11/13/21 [place] [address] [place] [address] Assigned Gastroenterology Provider 11/23/20 12/20/20 Heidi Gunn PA-C [address] [place] [address] Assigned PCP 03/08/21 05/07/22 Sukumar Villarreal MD [address] [place] [address] Assigned Musculoskeletal Provider 11/14/21 12/18/21 Burton Duncan MD [address] [place] [address] Assigned Musculoskeletal Provider 12/19/21 07/21/23 Pat Cole APRN FIRE ADJUSTER [address] [place] [address] Nurse Practitioner 01/19/22 Yohana Estes PA-C [address] [place] [address] Assigned PCP 05/08/22 06/22/23 Letha Manzanares MD [address] [place] [address] Ophthalmology 03/25/23 Corby Centeno MD [address] [place] [address] MD Dermatology 03/29/23 Cynthia Dubon MD [address] [place] [address] Cardiovascular Disease 04/19/23 Letha Manzanares MD [address] [place] [address] Assigned Surgical Provider 04/23/23 11/19/23 Wilma Saba MD [address] 426734 Assigned OBGYN Provider 04/09/23 Jeannette Jean Baptiste NP [address] [place] [address] 152185 Assigned PCP 06/23/23 Cynthia Dubon MD [address] [place] [address] 881465 Assigned Heart and Vascular Provider 07/01/23 Corby Centeno MD 9 [place] [address] Assigned Surgical Provider 11/20/23 documented as of this encounter
--- OUTSIDE RECORDS SUMMARY | 2023-12-10 21:06 | XMS_ITS | Encounter Summary ---
Author Organization [place] Address [address] [facility] [place] [address] Care Team Providers Care Solvent Process Extractor Operator Name Role Phone Bette Shirlene Floyd MD Unavailable Manju Crooks APRN CNM Unavailable Un[facility] Primary Care Provider Franklyn Chadwick DPM Unavailable [phone] Heidi GunnC Unavailable +[phone] Sukumar Villarreal MD Unavailable +[phone] Burton Duncan MD Unavailable +[phone] Pat Cole APRN HATCHERY SUPERVISOR Unavailable +[phone] Yohana Estes PA-C Unavailable [phone] Letha Manzanares MD Unavailable [phone] Corby Centeno MD Unavailable +[phone] Cynthia Dubon MD Unavailable [phone] Letha Manzanares MD Unavailable [phone] Wilma Saba MD Unavailable [phone] Jeannette Jean Baptiste NP Unavailable [phone] Cynthia Dubon MD Unavailable [phone] System, Provider Not In Primary Care Provider Un available Corby Centeno MD Unavailable [phone] Encounter Details Date Type Department Care Team (Late st Contact Info) Description 05/06/2021 MyC Medical Advice [facility] [address] [place] [address] Dora Odom, PATIENT TRANSPORT ORDERLY Social History Tobacco Use Types Packs/Day Years [...] COVID-19? No / Unsure 05/05/2021 7:55 AM CHIEF SPECIALIST LEED documented as of this encounter Plan of Treatment Upcoming Encounters Date Type Department Care Team (Late st Contact Info) Description 12/20/2023 10:45 AM CDT Office Visit [facility] [address] [address] Corby Centeno MD [address] [place] [address] documented as of this encounter Visit Diagnoses Not on filedocumented in this encounter Additional Health Concerns Assessment Noted Time PHQ-9 Depression Total Score: 5 05/06/20 7:33 AM CHIEF SPECIALIST LEED documented as of this encounter Care Teams Solvent Process Extractor Operator Relationship Specialty Start Date End Date Clinic - [facility] [address] [facility] [place] [place] [address] PCP - General Clinic 10/03/22 07/14/23 System, Provider Not In PCP - General Clinic 07/15/23 Shirlene Amos MD [address] [place] [address] Dermatology 12/29/15 Manju Crooks APRN CNM Assigned OBGYN Provider 03/21/20 09/19/21 Franklyn Chadwick DPM [address] [facility] [address] [place], [place] 952891 Assigned Musculoskeletal Provider 05/18/20 11/13/21 Heidi Gunn PA-C [address] [place] [address] Assigned PCP 03/08/21 05/07/22 Sukumar Villarreal MD 6[address] [place] [address] Assigned Musculoskeletal Provider 11/14/21 12/18/21 Burton Duncan MD 4000 [place] [address] Assigned Musculoskeletal Provider 12/19/21 07/21/23 Pat Cole APRN HATCHERY SUPERVISOR 909 [place], [place] 406015 Nurse Practitioner 01/19/22 Yohana Estes PA-C [address] [place], [place] 796340 Assigned PCP 05/08/22 06/22/23 Letha Manzanares MD [address] [place] [address] MD Ophthalmology 03/25/23 Corby Centeno MD [address] [place] [address] 973355 MD Dermatology 03/29/23 Cynthia Dubon MD [address] [place] [address] 537525 Cardiovascular Disease 04/19/23 Lehta Manzanares MD [address] [place] [address] Assigned Surgical Provider 04/23/23 11/19/23 Wilma Saba MD [address] 459524 Assigned OBGYN Provider 04/09/23 Jeannette Jean Baptiste NP [address] [place] [address] 113115 Assigned PCP 06/23/23 Cynthia Dubon MD [address] [place] [address] 383495 Assigned Heart and Vascular Provider 07/01/23 Corby Centeno MD [address] [place] [address]184 Assigned Surgical Provider 11/20/23 documented as of this encounter
--- OUTSIDE RECORDS SUMMARY | 2023-12-10 21:06 | XMS_ITS | Encounter Summary ---
Author Organization [place] Address [address] [facility] [place] [address] Care Team Providers Care Ceramist Name Role Phone BetteShirlene MD Unavailable [phone] Manju Crooks MERCHANDISING EXECUTION ASSOCIATE CNM Unavailable [facility] Primary Care Provider Zaira Queen APRN AIRPLANE AND ENGINE INSPECTOR Unavailable Franklyn Chadwick DPM Unavailable +[phone] Eva Echols DO Unavailable +[phone] Heidi Gunn PA-C Unavailable [phone] Sukumar Villareral MD Unavailable +[phone] Burton Duncan MD Unavailable +[phone] Pat Cole APRN AIRPLANE AND ENGINE INSPECTOR Unavailable +[phone] Yohana Estes-C Unavailable +[phone] Letha Manzanares MD Unavailable [phone] Corby Centeno MD Unavailable +[phone] Cynthia Dubon MD Unavailable [phone] Letha Manzanares MD Unavailable [phone] Wilma Saba MD Unavailable +[phone] Markel Jeannette Janet ORTIZ Unavailable +[phone] Cynthia Dubon MD Unavailable [phone] System, Provider Not In Primary Care Provider Un available Corby Centeno MD Unavailable [phone] Encounter Details Date Type Department Care Team (Late Contact Info) Description 09/05/2020 MyC Medical Advice [facility] [address] [facility] [address] [place] [address] Zaira Queen, MERCHANDISING EXECUTION ASSOCIATE AIRPLANE AND ENGINE INSPECTOR [address] [place] [address] Social History Tobacco Use Types [...] 12/20/2023 10:45 AM CDT Office Visit [facility] [address] [address] Corby Centeno MD 909 [place] [address] documented as of this encounter Visit Diagnoses Not on filedocumented in this encounter Additional Health Concerns Assessment Noted Time PHQ-9 Depression Total Score: 1 08/21/19 21 7:02 AM CDT documented as of this encounter Care Teams Ceramist Relationship Specialty Start Date End Date [facility] [address] [place] [address] PCP - General Clinic 10/03/22 07/14/23 System, Provider Not In PCP - General Clinic 07/15/23 Shirlene Amos MD [address] [place] [address] Dermatology 12/29/15 Manju Crooks, MERCHANDISING EXECUTION ASSOCIATE CNM Assigned OBGYN Provider 03/21/20 09/19/21 Zaira Queen, MERCHANDISING EXECUTION ASSOCIATE AIRPLANE AND ENGINE INSPECTOR [address] [place] [address] Assigned PCP 05/04/20 03/07/21 Franklyn Chadwick DPM [address] [facility] [place] [address] Assigned Musculoskeletal Provider 05/18/20 11/13/21 [place] [address] [place] [address] Assigned Gastroenterology Provider 11/23/20 12/20/20 Heidi Gunn, JAKYC [address] [place] [address] Assigned PCP 03/08/21 05/07/22 Sukumar Villarreal MD [address] [place], [place] 715822 Assigned Musculoskeletal Provider 11/14/21 12/18/21 Burton Duncan MD [address] [place] [address] 933441 Assigned Musculoskeletal Provider 12/19/21 07/21/23 Pat Cole APRN AIRPLANE AND ENGINE INSPECTOR [address] [place] [address] 126695 Nurse Practitioner 01/19/22 Yohana Estes PA-C [address] [place] [address] 108500 Assigned PCP 05/08/22 06/22/23 Letha Manzanares MD [address] [place] [address] 954345 Ophthalmology 03/25/23 Corby Centeno MD [address] [place] [address] 969205 Dermatology 03/29/23 Cynthia Dubon MD [address] [place] [address] 938075 Cardiovascular Disease 04/19/23 Letha Manzanares MD [address] [place] [address] 571065 Assigned Surgical Provider 04/23/23 11/19/23 Wilma Saba MD [address] [place], [place] 704904 Assigned OBGYN Provider 04/09/23 Jeannette Jean Baptiste NP [address] [address] Assigned PCP 06/23/23 Cynthia Dubon MD [address] [place] [address] 462165 Assigned Heart and Vascular Provider 07/01/23 Corby Centeno MD [address] [place] [address] 010685 Assigned Surgical Provider 11/20/23 documented as of this encounter
--- OUTSIDE RECORDS SUMMARY | 2023-12-10 21:06 | XMS_ITS | Encounter Summary ---
Author Organization [place] Address [address] [place] [address] Care Team Providers Care Oyster Opener Name Role Phone Olga Sandoval MD Primary Care Provider Shirlene Amos MD Unavailable [phone] Pat Mayorga PA-C Unavailable +[phone] Pat Mayorga PA-C Unavailable +[phone] [facility] Primary Care Provider Heidi Gunn-C Primary Care Provider + [phone] Heidi Gunn-C Unavailable [phone] Manju Crooks SENIOR ENERGY CONSULTANT CNM Unavailable [facility] Primary Care Provider Zaira Queen APRN COMBINATION MAN Unavailable Franklyn Chadwick DPM Unavailable [phone] Eva Echols DO Unavailable +[phone] Heidi Gunn Edis BENITEZ Unavailable +[phone] Sukumar Villarreal MD Unavailable +[phone] Burton Duncan MD Unavailable +[phone] Pat Cole APRN COMBINATION MAN Unavailable Yohana Estes PA-C Unavailable +[phone] Letha Manzanares MD Unavailable +[phone] Corby Centeno MD Unavailable +[phone] Cynthia Dubon MD Unavailable [phone] Letha Manzanares MD Unavailable +[phone] Wilma Saba MD Unavailable +[phone] Jeannette Jean Baptiste NP Unavailable +[phone] Cynthia Dubon MD Unavailable [phone] System, Provider Not In Primary Care Provider Un available Corby Centeno MD Unavailable [phone] Reason for Visit * Reason Onset Date Comments Patient Request for Note/Letter 07/06/2018 Encounter Details Date Type Department Care Team (Late st Contact Info) Description 07/06/[address] [place] [address] [place] [address] [address] [address] Patient Request for Note/Letter Social History [...] encounter Miscellaneous Notes * Telephone Encounter - Shaw Melanie - 07/07/2018 8:34 AM CST Updated work letter and faxed to [phone] 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 Please fax this to [phone] attyessy junior. Please call pt with any questions. thanks DEPOSIT CLERK documented in this encounter Plan of Treatment Upcoming Encounters Date Type Department Care Team (Late st Contact Info) Description 12/20/2023 10:45 AM CDT Office Visit [facility] Allergy [address] [phone] Corby Centeno MD [address] [place] [address] [phone] documented as of this encounter Visit Diagnoses Not on filedocumented in this encounter Additional Health Concerns Assessment Noted Time PHQ-9 Depression Total Score: 4 04/13/20 16 7:37 AM SAFE DEPOSIT CLERK documented as of this encounter Care Teams Oyster Opener Relationship Specialty Start Date End Date Olga Sandoval MD [address] [place] [address] PCP - General Family Practice 06/26/14 06/14/19 Pat Mayorga PA-C [address] [place] [address] [place] R[place] [address] PCP - Assigned PCP 07/02/18 08/01/18 [facility] [address] [place] [address] PCP - General 06/15/19 06/19/19 Heidi Gunn PA-C [address] [place] [address] PCP - General Physician Communication Clerk - Medical 06/20/19 04/29/20 Clinic - [facility] [address] [place] [address] PCP - General Clinic 10/03/22 07/14/23 System, Provider Not In PCP - General Clinic 07/15/23 Shirlene Amos MD [address] [facility] [address] [place], [place] 76496121 Dermatology 12/29/15 Pat Mayorga PA-C [address] [facility] [address] [place], [place] 8015[address] Assigned PCP 07/02/18 06/23/19 Heidi Gunn PA-C [address] [place] [address] Assigned PCP 06/24/19 05/03/20 Manju Crooks APRN CNM Assigned OBGYN Provider 03/21/20 09/19/21 Zaira Queen APRN COMBINATION MAN [address] [place] [address] Assigned PCP 05/04/20 03/07/21 Franklyn Chadwick DPM [address] [place] [address] [place] [address] Assigned Musculoskeletal Provider 05/18/20 11/13/21 [place] [address] [place] [address] Assigned Gastroenterology Provider 11/23/20 12/20/20 Heidi Gunn PA-C [address] [place] [address] Assigned PCP 03/08/21 05/07/22 Sukumar Villarreal MD [address] [place] [address] Assigned Musculoskeletal Provider 11/14/21 12/18/21 Burton Duncan MD [address] [place] [address]676 Assigned Musculoskeletal Provider 12/19/21 07/21/23 Pat Cole APRN CNP [address] [place] [address] Nurse Practitioner 01/19/22 Yohana Estes PA-C [address] [place] [address] 095[address] Assigned PCP 05/08/22 06/22/23 Letha Manzanares MD [address] [place] [address] 932845 MD Anthony 03/25/23 Corby Centeno MD [address] [place] [address] 716175 Dermatology 03/29/23 Cynthia Dubon MD 9 [place], [place] 489745 Cardiovascular Disease 04/19/23 Letha Manzanares MD 6 [place], [place] 738945 Assigned Surgical Provider 04/23/23 11/19/23 Wilma Saba MD [address] [place] [address] Assigned OBGYN Provider 04/09/23 Jeannette Jean Baptiste NP [address] [place] [address] 680255 Assigned PCP 06/23/23 Cynthia Dubon MD [address] [place] [address] 714125 Assigned Heart and Vascular Provider 07/01/23 Corby Centeno MD [address] [place] [address] 512985 Assigned Surgical Provider 11/20/23 documented as of this encounter
--- OUTSIDE RECORDS SUMMARY | 2023-12-10 21:06 | XMS_ITS | Encounter Summary ---
Author Organization [place] Address [address] [facility] [place] [address] Care Team Providers Care Paper Supervisor Name Role Phone BetteShirlene MD Unavailable [phone] Manju Crooks RADIOCHEMICAL TECHNICIAN CNM Unavailable [facility] Primary [facility] Provider Zaira Queen APRN COPY AND PRINT ASSOCIATE Unavailable Franklyn Chadwick DPM Unavailable +[phone] Eva Echols DO Unavailable +[phone] Heidi Gunn PA-C Unavailable +[phone] Sukumar Villarreal MD Unavailable +[phone] Burton Duncan MD Unavailable +[phone] Pat Cole APRN COPY AND PRINT ASSOCIATE Unavailable +[phone] Yohana Estes-C Unavailable +[phone] Letha Manzanares MD Unavailable +[phone] Corby Centeno MD Unavailable +[phone] Cynthia Dubon MD Unavailable Letha Manzanares MD Unavailable [phone] Wilma Saba MD Unavailable +[phone] Markel Jeannettedarian Gonzales NP Unavailable +[phone] Cynthia Dubon MD Unavailable [phone] System, Provider Not In Primary Care Provider Un available Corby Centeno MD Unavailable [phone] Encounter Details Date Type Department Care Team (Late Contact Info) Description 11/05/2020 MyC Medical Advice [facility] Gastroenterology Clinic [address] 4th [place] [address] Adrianne Richards MD [address] [facility] 7[address] [place] [address] Social History Tobacco Use Types [...] Visit [facility] Allergy Clinic [address] [address] Corby Centeno MD [address] [place] [address] documented as of this encounter Visit Diagnoses Not on filedocumented in this encounter Additional Health Concerns Assessment Noted Time PHQ-9 Depression Total Score: 1 08/21/19 21 7:02 AM CDT documented as of this encounter Care Teams Paper Supervisor Relationship Specialty Start Date End Date Clinic - [facility] [address] [place] [address] PCP - General Clinic 10/03/22 07/14/23 System, Provider Not In PCP - General Clinic 07/15/23 Shirlene Amos MD [address] [facility] [place] [address] Dermatology 12/29/15 Manju Crooks RADIOCHEMICAL TECHNICIAN CNM Assigned OBGYN Provider 03/21/20 09/19/21 Zaira Queen APRN COPY AND PRINT ASSOCIATE [address] [place] [address] Assigned PCP 05/04/20 03/07/21 Franklyn Chadwick DPM 9 [facility] [place] [address] Assigned Musculoskeletal Provider 05/18/20 11/13/21 [place] [address] [place] [address] Assigned Gastroenterology Provider 11/23/20 12/20/20 Heidi Gunn PA-C [address] [facility] [place] [address] Assigned PCP 03/08/21 05/07/22 Sukumar Villarreal MD [address] [facility] [place] [address] Assigned Musculoskeletal Provider 11/14/21 12/18/21 Burton Duncan MD [address] [place] [address] Assigned Musculoskeletal Provider 12/19/21 07/21/23 Pat Cole APRN COPY AND PRINT ASSOCIATE [address] [place] [address] 733345 Nurse Practitioner 01/19/22 Yohana Estes PA-C [address] [place] [address] Assigned PCP 05/08/22 06/22/23 Letha Manzanares MD [address] [place] [address] 457295 Ophthalmology 03/25/23 Corby Centeno MD [address] [place] [address] 690255 Dermatology 03/29/23 Cynthia Dubon MD [address] [place] [address] 878175 Cardiovascular Disease 04/19/23 Letha Manzanares MD [address] [place] [address] 685595 Assigned Surgical Provider 04/23/23 11/19/23 Wilma Saba MD [address] [place] [address] [place], [place] 157074 Assigned OBGYN Provider 04/09/23 Jeannette Jean Baptiste NP [address] [address] Assigned PCP 06/23/23 Cynthia Dubon MD [address] [place] [address] 699705 Assigned Heart and Vascular Provider 07/01/23 Corby Centeno MD [address] [place] [address] 664675 Assigned Surgical Provider 11/20/23 documented as of this encounter
--- OUTSIDE RECORDS SUMMARY | 2023-12-10 21:06 | XMS_ITS | Encounter Summary ---
Author Organization [place] Address [address] [facility] [place] [address] Care Team Providers Care Field Trainer Name Role Phone BetteShirlene MD Unavailable [facility] Primary Care Provider Franklyn Chadwick DPM Unavailable [phone] Heidi Gunn PA-C Unavailable +[phone] Sukumar Villarreal MD Unavailable Burton Duncan MD Unavailable +[phone] Pat Cole APRN STENOGRAPHIC COURT REPORTER Unavailable Yohana Estes PA-C Unavailable +[phone] Letha Manzanares MD Unavailable [phone] Corby Centeno MD Unavailable [phone] Cynthia Dubon MD Unavailable [phone] Letha Manzanares MD Unavailable [phone] Wilma Saba MD Unavailable [phone] Jeannette Jean Baptiste NP Unavailable [phone] Cynthia Dubon MD Unavailable [phone] System, Provider Not In Primary Care Provider Un available Corby Centeno MD Unavailable [phone] Encounter Details Date Type Department Care Team (Late st Contact Info) Description 11/11/2021 MyC Medical Advice [facility] [id number] [place], [place] [address]christina [place] [address] Geraldo Lui MA Social History [...] Description 12/20/2023 10:45 AM CDT Office Visit [facility] Allergy Clinic [address] [address] Corby Centeno MD [address] [place] [address] documented as of this encounter Visit Diagnoses Not on filedocumented in this encounter Additional Health Concerns Assessment Noted Time PHQ-9 Depression Total Score: 5 05/06/20 21 7:33 AM DIRECTOR OF OPERATIONS HOME HEALTH documented as of this encounter Care Teams Field Trainer Relationship Specialty Start Date End Date Clinic - [facility] [address] [place], [place] [phone] PCP - General Clinic 10/03/22 07/14/23 System, Provider Not In PCP - General Clinic 07/15/23 Shirlene Amos MD [address] [facility] [place] [address] Dermatology 12/29/15 Franklyn Chadwick DPM [address] [place] [address] [place] [address] Assigned Musculoskeletal Provider 05/18/20 11/13/21 Heidi Gunn PA-C [address] [place] [address] Assigned PCP 03/08/21 05/07/22 Sukumar Villarreal MD 6341 [place] [address] Assigned Musculoskeletal Provider 11/14/21 12/18/21 Burton Duncan MD [address] [place] [address] Assigned Musculoskeletal Provider 12/19/21 07/21/23 Pat Cole APRN [address] REPORTER [address] [place] [address] Nurse Practitioner 01/19/22 Yohana Estes PA-C [address] [place] [address] Assigned PCP 05/08/22 06/22/23 Letha Manzanares MD 6 [place] [address] MD Ophthalmology 03/25/23 Corby Centeno MD [address] [place] [address] 158905 MD Dermatology 03/29/23 Cynthia Dubon MD [address] [place] [address] 742475 Cardiovascular Disease 04/19/23 Letha Manzanares MD 6 [place], [place] 892865 Assigned Surgical Provider 04/23/23 11/19/23 Wilma Saba MD [address] [address] Assigned OBGYN Provider 04/09/23 Jeannette Jean Baptiste NP [address] [place] [address] 449995 Assigned PCP 06/23/23 Cynthia Dubon MD [address] [place] [address] 040115 Assigned Heart and Vascular Provider 07/01/23 Corby Centeno MD [address] [place] [address] 525155 Assigned Surgical Provider 11/20/23 documented as of this encounter
--- OUTSIDE RECORDS SUMMARY | 2023-12-10 21:06 | XMS_ITS | Encounter Summary ---
Author Organization [place] Address [address] [facility] [place] [address] Care Team Providers Care Store Sales Manager Name Role Phone BetteShirlene MD Unavailable [phone] Heidi GunnC Primary Care Provider [phone] Heidi GunnC Unavailable [phone] Manju Crooks TRANSPORTATION MAINTENANCE WORKER CNM Unavailable Unava [facility] Primary Care Provider Zaira Queen TRANSPORTATION MAINTENANCE WORKER LITHOPRESS OPERATOR Unavailable Franklyn Chadwick DPM Unavailable [phone] Eva Echols DO Unavailable +[phone] Heidi Gunn PA-C Unavailable [phone] Sukumar Villarreal MD Unavailable +[phone] Burton Duncan MD Unavailable +[phone] Pat Cole APRN LITHOPRESS OPERATOR Unavailable +[phone] Yohana Estes PA-C Unavailable +[phone] Letha Manzanares MD Unavailable [phone] Corby Centeno MD Unavailable Cynthia Dubon MD Unavailable [phone] Letha Manzanares MD Unavailable +[phone] Wilma Saba MD Unavailable +[phone] Jeannette Jean Baptiste NP Unavailable +[phone] Cynthia Dubon MD Unavailable [phone] System, Provider Not In Primary Care Provider Un available Corby Centeno MD Unavailable +[phone] Reason for Visit * Reason Onset Date Comments Outreach 07/06/2019 [facility] Cervical/PAP ATT 1 Encounter Details Date Type Department Care Team (Late st Contact Info) Description 07/06/2019 Telephone [facility] [address] [place] [address] Heidi Gunn PA-C [address] [place] [address] Outreach (PHS Cervical/PAP ATT 1) [...] Attempt 1 Message on voicemail Comments: Outreach Speech Instructor CS LE NURSE documented in this encounter Plan of Treatment Upcoming Encounters Date Type Department Care Team (Late st Contact Info) Description 12/20/2023 10:45 AM CDT Office Visit [facility] Allergy Clinic [address] [address] Corby Centeno MD [address] [place] [address] documented as of this encounter Visit Diagnoses Not on filedocumented in this encounter Additional Health Concerns Assessment Noted Time PHQ-9 Depression Total Score: 4 04/13/20 16 7:37 AM MOBILE NURSE documented as of this encounter Care Teams Store Sales Manager Relationship Specialty Start Date End Date Heidi Gunn PA-C [address] [place] [address] PCP - General Physician Outpatient Services Director - Medical 06/20/19 04/29/20 [facility] [address] [place] [address] PCP - General Clinic 10/03/22 07/14/23 System, Provider Not In PCP - General Clinic 07/15/23 Shirlene Amos MD [address] [place] [address] Dermatology 12/29/15 Heidi Gunn PAMary [address] [place] [address] Assigned PCP 06/24/19 05/03/20 Manju Crooks APRN CNM Assigned OBGYN Provider 03/21/20 09/19/21 Zaira Queen APRN LITHOPRESS OPERATOR [address] [place] [address] Assigned PCP 05/04/20 03/07/21 Franklyn Chadwick DPM [address] [facility] [place] [address] Assigned Musculoskeletal Provider 05/18/20 11/13/21 [place] [address] [place] [address] Assigned Gastroenterology Provider 11/23/20 12/20/20 Heidi Gnun PA-C [address] [place] [address] Assigned PCP 03/08/21 05/07/22 Sukumar Villarreal MD 6341 [place], [place] 089682 Assigned Musculoskeletal Provider 11/14/21 12/18/21 Burton Duncan MD 4000 [place] [address] Assigned Musculoskeletal Provider 12/19/21 07/21/23 Pat Cole APRN LITHOPRESS OPERATOR [address] [place] [address] Nurse Practitioner 01/19/22 Yohana Estes PA-C 290 [place] [address] Assigned PCP 05/08/22 06/22/23 Letha Manzanares MD 516 [place] [address] MD Ophthalmology 03/25/23 Corby Centeno MD [address] [place] [address] MD Dermatology 03/29/23 Cynthia Dubon MD [address] [place] [address] Cardiovascular Disease 04/19/23 Letha Manzanares MD [address] [place] [address] Assigned Surgical Provider 04/23/23 11/19/23 Wilma Saba MD [address] 544774 Assigned OBGYN Provider 04/09/23 Jeannette Jean Baptiste NP [address] [place] [address] 900225 Assigned PCP 06/23/23 Cynthia Dubon MD [address] [place] [address] 325395 Assigned Heart and Vascular Provider 07/01/23 Corby Centeno MD [address] [place] [address] 071155 Assigned Surgical Provider 11/20/23 documented as of this encounter
--- OUTSIDE RECORDS SUMMARY | 2023-12-10 21:06 | XMS_ITS | Encounter Summary ---
Author Organization [place] Address [address] [facility] [place] [address] Care Team Providers Care National Insurance Officer Name Role Phone Olga Sandoval MD Primary Care Provider [phone] Shirlene Amos MD Unavailable +[phone] Pat Mayorga PA-C Unavailable +[phone] [place] [address] Primary Care Provider Heidi GunnC Primary Care Provider + [phone] Heidi Gunn-C Unavailable [phone] Manju Crooks APRN CNM Unavailable [facility] Primary Care Provider Zaira Queen APRN PHOTOCOPY OPERATOR Unavailable Franklyn Chadwick DPM Unavailable +[phone] Eva Echols DO Unavailable +[phone] Heidi Gunn PA-C Unavailable +[phone] Sukumar Villarreal MD Unavailable +[phone] Burton Duncan MD Unavailable +[phone] Pat Cole APRN PHOTOCOPY OPERATOR Unavailable +[phone] Yohana Estes PA-C Unavailable +[phone] Letha Manzanares MD Unavailable [phone] Corby Centeno MD Unavailable +[phone] Cynthia Dubon MD Unavailable [phone] Letha Manzanares MD Unavailable [phone] Wilma Saba MD Unavailable +[phone] Jeannette Jean Baptiste NP Unavailable +[phone] Cynthia Dubon MD Unavailable [phone] System, Provider Not In Primary Care Provider Un available Corby Centeno MD Unavailable +[phone] Reason for Visit * Reason Onset Date Comments Forms 08/07/2018 Encounter Details Date Type Department Care Team (Late st Contact Info) Description 08/07/[address] [place] [address] [place] [address] [place] [address] [place] [address] [phone] Forms Social History Tobacco Use Types Packs/Day [...] encounter Miscellaneous Notes * Telephone Encounter - Shirley Marcial - 08/07/2018 10:36 AM CDT Reason for [...] clinic location was the form placed at?: [facility] - [phone] Where the form was placed: 's Box What number is listed as a contact on the form?: [phone] Additional comments: form faxed to Dr Christian. Please sign and fax back Call taken on 08/07/2018 at 10:36 AM by Shirley Benoit documented in this encounter Plan of Treatment Upcoming Encounters Date Type Department Care Team (Late st Contact Info) Description 12/20/2023 10:45 AM CDT Office Visit [facility] Allergy [address] [phone] Corby Centeno MD [address] [place] [address] 301105 documented as of this encounter Visit Diagnoses Not on filedocumented in this encounter Additional Health Concerns Assessment Noted Time PHQ-9 Depression Total Score: 4 04/13/20 16 7:37 AM OPTOMECHANICAL TECHNICIAN documented as of this encounter Care Teams National Insurance Officer Relationship Specialty Start Date End Date Olga Sandoval MD [address] [place] [address] PCP - General Family Practice 06/26/14 06/14/19 [facility] [address] [place] [address] PCP - General 06/15/19 06/19/19 Heidi Gunn, PAGuillermoC [address] [place] [address] PCP - General Physician Dock Operator - Medical 06/20/19 04/29/20 Clinic - [facility] [address] [place] [address] PCP - General Clinic 10/03/22 07/14/23 System, Provider Not In PCP - General Clinic 07/15/23 Shirlene Amos MD [address] [facility] [place] [address] Dermatology 12/29/15 Pat Mayorga PA-C [address] [facility] [address] [place], [place] 9[address] Assigned PCP 07/02/18 06/23/19 Heidi Gunn PA-C [address] [place] [address] Assigned PCP 06/24/19 05/03/20 Manju Crooks APRN CNM Assigned OBGYN Provider 03/21/20 09/19/21 Zaira Queen APRN PHOTOCOPY OPERATOR [address] [place] [address] Assigned PCP 05/04/20 03/07/21 Franklyn Chadwick DPM [address] [facility] [address] [place], [place] 439[address] Assigned Musculoskeletal Provider 05/18/20 11/13/21 [place] [address] [place] [address] Assigned Gastroenterology Provider 11/23/20 12/20/20 Heidi Gunn PA-C [address] [place] [address] Assigned PCP 03/08/21 05/07/22 Sukumar Villarreal MD 6341 [place] [address] Assigned Musculoskeletal Provider 11/14/21 12/18/21 Burton Duncan MD [address] [place] [address] Assigned Musculoskeletal Provider 12/19/21 07/21/23 Pat Cole APRN [facility] [address] [place] [address] 996535 Nurse Practitioner 01/19/22 Yohana Estes PA-C [address] [place] [address] Assigned PCP 05/08/22 06/22/23 Letha Manzanares MD [address] [place] [address] 241525 MD Anthony 03/25/23 Corby Centeno MD [address] [place] [address] 200595 Dermatology 03/29/23 Cynthia Dubon MD [address] [place] [address] 15003455 Cardiovascular Disease 04/19/23 Letha Manzanares MD 516 [place], [place] 0[address]45 Assigned Surgical Provider 04/23/23 11/19/23 Wilma Saba MD [address] [address] Assigned OBGYN Provider 04/09/23 Jeannette Jean Baptiste NP [address] [place] [address] Assigned PCP 06/23/23 Cynthia Dubon MD 909 [place], [place] 81723455 Assigned Heart and Vascular Provider 07/01/23 Corby Centeno MD 909 [place], [place] 278105 Assigned Surgical Provider 11/20/23 documented as of this encounter
--- OUTSIDE RECORDS SUMMARY | 2023-12-10 21:06 | XMS_ITS | Encounter Summary ---
Author Organization [place] Address [address] [facility] [place] [address] Care Team Providers Care Corrections Unit Supervisor Name Role Phone BetteShirlene MD Unavailable [phone] Manju Crooks ACTUARIAL ASSISTANT CNM Unavailable [facility] Primary Care Provider Zaira Queen APRN WARP DYEING TENDER Unavailable Franklyn Chadwick DPM Unavailable +[phone] Eva Echols DO Unavailable +[phone] Heidi Gunn PA-C Unavailable +[phone] Sukumar Villarreal MD Unavailable +[phone] Burton Duncan MD Unavailable +[phone] Pat Cole APRN WARP DYEING TENDER Unavailable +[phone] Yohana Estes-C Unavailable +[phone] Letha Manzanares MD Unavailable [phone] Corby Centeno MD Unavailable +[phone] Cynthia Dubon MD Unavailable [phone] Letha Manzanares MD Unavailable [phone] Wilma Saba MD Unavailable +[phone] Markel Jeannette Janet ORTIZ Unavailable +[phone] Cynthia Dubon MD Unavailable [phone] System, Provider Not In Primary Care Provider Un available Corby Centeno MD Unavailable [phone] Reason for Referral * Diagnostic Imaging CT Scan (Routine) - Closed Specialty Diagnoses / Procedures Referred By Contac t Referred To Contact Radiology. Diagnoses LUQ abdominal pain Procedures CT Abdomen Pelvis w Contrast Zaira Queen APRN WARP DYEING TENDER [address] [place] [address] Scan [address] [place] [address] Referral ID Status Reason Start Date Expiration Date Visits Re quested Visits Authorized [id number] Closed 08/25/2020 08/25/2021 1 1 Encounter Details Date Type Department Care Team (Late st Contact Info) Description 08/25/2020 MyC Medical Advice [address] [place] [phone] Zaira Queen APRN WARP DYEING TENDER [address] [place] [address] LUQ abdominal pain (Primary Dx) Social History [...] CT order for patient. Delaney Ibarra CMA (AAMA) * Telephone Encounter - Rylie Campbell - 08/25/2020 10:58 AM CDT Replied via Back[employer]t. Rylie Campbell RN [facility] documented in this encounter Plan of Treatment Upcoming Encounters Date Type Department Care Team (Late st Contact Info) Description 12/20/2023 10:45 AM CDT Office Visit [facility] Allergy Clinic [address] [address] Corby Centeno MD [address] [place] [address] [phone] documented as of this encounter Results * [...] this study. JACE HOWARD MD Zaira Queen APRN WARP DYEING TENDER IMG C T ORDERABLES documented in this encounter Visit Diagnoses Diagnosis LUQ abdominal pain- Primary Abdominal pain, left upper quadrant LUQ abdominal pain Abdominal pain, left upper quadrant documented in this encounter Additional Health Concerns Assessment Noted Time PHQ-9 Depression Total Score: 1 08/21/19 21 7:02 AM CDT documented as of this encounter Care Teams Corrections Unit Supervisor Relationship Specialty Start Date End Date Clinic - [facility] [address] [place] [address] PCP - General Clinic 10/03/22 07/14/23 System, Provider Not In PCP - General Clinic 07/15/23 Shirlene Amos MD [address] [facility] [place] [address] Dermatology 12/29/15 Manju Crooks APRN CN Assigned OBGYN Provider 03/21/20 09/19/21 Zaira Queen APRN WARP DYEING TENDER [address] [place] [address] Assigned PCP 05/04/20 03/07/21 Franklyn Chadwick DPM 9 [facility] [place] [address] Assigned Musculoskeletal Provider 05/18/20 11/13/21 [place] [address] [facility] [address] Assigned Gastroenterology Provider 11/23/20 12/20/20 Heidi Gunn PA-C [address] [place] [address] Assigned PCP 03/08/21 05/07/22 Sukumar Villarreal MD 6[address] [place], [place] 498012 Assigned Musculoskeletal Provider 11/14/21 12/18/21 Burton Duncan MD 4000 [place], [place] 909971 Assigned Musculoskeletal Provider 12/19/21 07/21/23 Pat Cole APRN CNP [address] [place] [address] [phone] Nurse Practitioner 01/19/22 Yohana Estes PA-C [address] [place], [place] 610560 Assigned PCP 05/08/22 06/22/23 Letha Manzanares MD 6 [place], [place] 784605 MD Anthony 03/25/23 Corby Centeno MD [address] [place] [address] 590425 Dermatology 03/29/23 Cynthia Dubon MD [address] [place] [address] Cardiovascular Disease 04/19/23 Letha Manzanares MD [address] [place] [address] Assigned Surgical Provider 04/23/23 11/19/23 Wilma Saba MD [address] [facility] [address] 291454 Assigned OBGYN Provider 04/09/23 Jeannette Jean Baptiste NP [address] [place] [address] 007455 Assigned PCP 06/23/23 Cynthia Dubon MD [address] [place] [address] 788745 Assigned Heart and Vascular Provider 07/01/23 Corby Centeno MD [address] [place] [address] 778595 Assigned Surgical Provider 11/20/23 documented as of this encounter
== END 2023-12-10 21:03 | disposition home or self-care (01) ==
LOC: ED 21:02
PROVIDERS: Emergency Provider Internal Medicine; PCP Family Medicine
DX: K08.89 Other specified disorders of teeth and supporting structures (principal)
CPT/HCPCS: 99283

== ENCOUNTER 2024-01-22 20:53 | Emergency (ER) | payer MEDICAID, SELFPAY ==
[2024-01-22 21:20] VITALS: BP 113/74; PULSE 78; RESP 16; TEMP 36.4; O2SAT 98
--- NOTE | 2024-01-22 21:24 | CRLHL7_ITS ---
For Patients: As a result of the Century Cures Act, medical imaging exams and procedure reports are released immediately into your electronic medical record. You may view this report before your referring provider. If you have questions, please contact your health care provider. INDICATION: Traumatic injury. COMPARISON: 13 May 2020. TECHNIQUE: Three views right foot. IMPRESSION: Anatomic alignment. No acute fracture. Fixation screws incompletely assessed at the medial malleolus of the tibia. Small os calcis spur and insertional spur Achilles insertion posterior process of the calcaneus unchanged. Tiny type 1 accessory navicular. Dictated by Franklyn Archer MD @ 01/22/2024 10:07:59 PM (Electronically Signed)
--- NOTE | 2024-01-22 21:25 | ED_ITS ---
HPI - General Adult General Chief complaint: Extremity Pain/Injury, Lower Stated complaint: R foot injury Time Seen by Provider: 01/22/24 21:24 History of Present Illness HPI narrative: Patient is a 43-year-old female who has got chronic medical illnesses who reports that they were playing kickball couple days ago and she injured her right foot hurts at the plantar surface her foot and into her proximal medial foot. There is no bruising or swelling. She apparently has some operative intervention her foot the past as some screws in her foot. She has been able to walk. Been more painful. Related Data Home Medications ?Medication ?Instructions ?Recorded ?Confirmed albuterol sulfate 90 mcg/actuation inhalation 05/14/23 06/01/23 aerosol inhaler (Ventolin HFA) fluticasone 100 mcg-salmeterol 50 1 ea inhalation Q12H 05/14/23 08/07/23 mcg/dose blistr powdr for inhalation (Advair Diskus) polyethylene glycol 3350 17 17 g PO DAILY 05/14/23 06/13/23 gram/dose oral powder clonidine HCl 0.3 mg tablet 0.3 mg PO TID PRN 06/01/23 08/07/23 epinephrine 0.3 mg/0.3 mL 0.3 mg IM ONCE PRN 06/01/23 08/07/23 injection, auto-injector melatonin 10 mg tablet 20 mg PO QHS PRN 06/01/23 08/07/23 ondansetron 4 mg disintegrating 4 mg PO Q8H 06/01/23 08/07/23 tablet TAB-A-NIKKI 08/07/23 methimazole 5 mg tablet 10 mg PO DAILY 08/07/23 11/16/23 trazodone 50 mg tablet mg PO 08/07/23 levocetirizine 5 mg tablet 5 mg PO QAM 11/16/23 11/16/23 Previous Rx's ?Medication ?Instructions ?Recorded blood pressure monitor #1 ea 06/01/23 hydrochlorothiazide 12.5 mg tablet 12.5 mg PO DAILY #90 tabs 06/01/23 omeprazole 40 mg capsule,delayed 40 mg PO DAILY #90 caps 06/01/23 release prazosin 1 mg capsule 1 mg PO QHS #90 caps 06/01/23 prazosin 2 mg capsule 2 mg PO QPM #90 caps 06/01/23 topiramate 25 mg tablet 25 mg PO DAILY #90 tabs 06/01/23 loperamide 2 mg capsule 2 mg PO Q6H PRN loose stool #30 06/12/23 (Anti-Diarrheal (loperamide)) caps nicotine 21 mg/24 hr daily 1 patch transdermal Q24H #30 ea 06/12/23 transdermal patch atomoxetine 80 mg capsule 80 mg PO QAM #30 caps 08/04/23 cholecalciferol (vitamin D3) 50 50 mcg PO DAILY #90 caps 08/04/23 mcg (2,000 unit) capsule gabapentin 300 mg capsule 300 mg PO QDAY #90 caps 08/04/23 multivitamin with folic acid 400 1 tab PO DAILY #90 tabs 08/04/23 mcg tablet (Tab-A-Nikki) propranolol 20 mg tablet 20 mg PO TID #120 tabs 08/04/23 trazodone 100 mg tablet 200 mg (2 x 100 mg) PO QDAY #180 08/04/23 tabs Allergies Allergy/AdvReac Type Severity Reaction Status Date / Time mold Allergy Severe Anaphylaxis Verified 12/10/23 19:31 almond Allergy Mild Hives Verified 12/10/23 19:31 loratadine [From Claritin] Allergy Mild Hives Verified 12/10/23 19:31 sumatriptan [From Imitrex] Allergy Mild Hives Verified 12/10/23 19:31 morphine AdvReac Mild Palpitation Verified 12/10/23 19:31 s Review of Systems Status of ROS: Reports: 6 or more systems reviewed and unremarkable except as noted in History and below [facility] Medical History Lower extremity edema ?R60.0 - Localized edema (ICD-10) Chronic pain ?G89.29 - Other chronic pain (ICD-10) Endometriosis ?N80.9 - Endometriosis, unspecified (ICD-10) Fatty liver ?K76.0 - Fatty (change of) liver, not elsewhere classified (ICD-10) 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 - Other stimulant abuse, in remission (ICD-10) Irregular menses ?N92.6 - Irregular menstruation, unspecified (ICD-10) Uterine fibroid ?D25.9 - Leiomyoma of uterus, unspecified (ICD-10) Thyroid nodule ?E04.1 - Nontoxic single thyroid nodule (ICD-10) Intermittent asthma ?J45.20 - Mild intermittent asthma, uncomplicated (ICD-10) GERD (gastroesophageal reflux disease) ?K21.9 - Gastro-esophageal reflux disease without esophagitis (ICD-10) Chronic constipation ?K59.09 - Other constipation (ICD-10) History of abnormal cervical Pap smear ?Z87.42 - Personal history of other diseases of the female genital tract (ICD-10) Anxiety ?F41.9 - Anxiety disorder, unspecified (ICD-10) Surgical History History of ovarian cystectomy (2001) ?Z98.890 - Other specified postprocedural states (ICD-10) ?Z87.42 - Personal history of other diseases of the female genital tract (ICD-10) History of cryosurgery (2000) ?Z98.890 - Other specified postprocedural states (ICD-10) History of appendectomy (2007) ?Z90.49 - Acquired absence of other specified parts of digestive tract (ICD- 10) History of laparoscopic cholecystectomy (2014) ?Z90.49 - Acquired absence of other specified parts of digestive tract (ICD- 10) History of esophagogastroduodenoscopy (EGD) (2020) ?Z98.890 - Other specified postprocedural states (ICD-10) History of open reduction and internal fixation (ORIF) procedure (2021) ?Z98.890 - Other specified postprocedural states (ICD-10) History of colonoscopy (2013) ?Z98.890 - Other specified postprocedural states (ICD-10) Family History Mother Heart failure Asthma Depression Father Heart failure Paternal Grandfather Liver disease Family/Other Breast cancer Social History Narrative: Single, living in sober recovery house in [place], not working, no children Smokes half a pack a day, 20 pack years No alcohol or methamphetamine since January 2023 Exercise twice a week walking What is your current living situation?: I presently have a place to live Problems where you live: no known problems Problems where you live details: Lives in sober living facility. No known problems In the past 12 months, utilities in danger of being shut off: no In past 12 months, lack of transportation kept you from medical appts, meetings, work, or getting things needed for daily living: no In the past 12 mos, have been you worried that your food would run out before you had money to buy more?: never true In the past 12 mos, the food you bought just didn't last and you didn't have money to buy more?: never true Highest level of school completed/degree received: high school graduate Smoking Status: Current every day smoker Do you use any of these nicotine containing products: Vaping Products Second hand tobacco smoke exposure: No How often do you have a drink containing alcohol: never How often do you have six or more drinks on one occasion: Never AUDIT-C Alcohol total score: 0 Non-prescribed substance use: former substance user and amphetamines/methamphetamines Caffeine: Yes How often does anyone, including family, friends and others, physically hurt you : never How often does anyone, including family, friends and others, insult or talk down to you: never How often does anyone, including family, friends and others, threaten you with harm: never How often does anyone, including family, friends and others, scream or curse at you: never Little interest or pleasure in doing things: not at all Feeling down, depressed, or hopeless: not at all service: No Exam Narrative: Exam Narrative: Objective: In general the patient is no apparent distress Right foot shows no point tenderness, no erythema or swelling, no bruising. Distal CMS intact. Const: Vital Signs, click to edit/add: Vital Signs - 24 hr 01/22/24 21:20 Temperature 97.6 F Pulse Rate [Pulse Oximeter] 78 Respiratory Rate 16 Blood Pressure [Ri ght Upper Arm] 113/74 Pulse Oximetry 98 Oxygen Delivery Me thod Room Air Course Vital Signs Vital signs: Initial Vital Signs Temperature 97.6 F 01/22/24 21:20 Temperature Source Temporal Artery Scan 01/22/24 21:20 Pulse Rate 78 01/22/24 21:20 Respiratory Rate 16 01/22/24 21:20 Blood Pressure 113/74 01/22/24 21:20 Blood Pressure Mean 87 01/22/24 21:20 Blood Pressure Position Sitting 01/22/24 21:20 Pulse Oximetry 98 01/22/24 21:20 Oxygen Delivery Method Room Air 01/22/24 21:20 Vital Signs Temperature 97.6 F 01/22/24 21:20 Pulse Rate 78 01/22/24 21:20 Respiratory Rate 16 01/22/24 21:20 Blood Pressure 113/74 01/22/24 21:20 Pulse Oximetry 98 01/22/24 21:20 Oxygen Delivery Method Room Air 01/22/24 21:20 Temperature 97.6 F 01/22/24 21:20 Pulse Rate 78 01/22/24 21:20 Respiratory Rate 16 01/22/24 21:20 Blood Pressure 113/74 01/22/24 21:20 Pulse Oximetry 98 01/22/24 21:20 Oxygen Delivery Method Room Air 01/22/24 21:20 Medical Decision Making MDM Narrative Medical decision making narrative: 43-year-old female with a injury to the right foot from playing kickball, diffuse pain in her plantar surface and medial foot. Will check her x-ray of her foot make sure there was no screw abnormality or prior implement damage. Rule out fracture. Disposition pending findings. Addendum 9:45 p.m. the patient's x-ray of her foot appears negative that shows the screws intact in her distal tibia. There is no evidence of obvious fracture otherwise. Will get her crutches, ice, Advil as needed, return as needed david mmend light activity for the next couple of days and recheck with primary care at that time. Discharge Plan Discharge Clinical Impression: Acute pain of right foot Patient Disposition: Home w/ Parent or Adult Condition: Stable Additional Instructions: Crutches, ice, Advil or Aleve as needed, elevate, return to primary care in the next 3-4 days for reassessment certainly sooner change concerns worsening. Activity Level: Light activity Discharge Diet: Regular Prescriptions: No Action clonidine HCl 0.3 mg tablet 0.3 mg PO TID PRN epinephrine 0.3 mg/0.3 mL auto-injector 0.3 mg IM ONCE PRN Rx Instructions: as a single dose; may repeat once melatonin 10 mg tablet 20 mg PO QHS PRN ondansetron 4 mg tablet,disintegrating 4 mg PO Q8H omeprazole 40 mg capsule,delayed release(DR/EC) 40 mg PO DAILY Qty: 90 3RF prazosin 1 mg capsule 1 mg PO QHS Qty: 90 1RF prazosin 2 mg capsule 2 mg PO QPM Qty: 90 1RF topiramate 25 mg tablet 25 mg PO DAILY Qty: 90 1RF hydrochlorothiazide 12.5 mg tablet 12.5 mg PO DAILY Qty: 90 3RF nicotine 21 mg/24 hr Patch 24 Hour 1 patch transdermal Q24H Qty: 30 0RF loperamide [Anti-Diarrheal (loperamide)] 2 mg capsule 2 mg PO Q6H PRN (Reason: loose stool) Qty: 30 0RF methimazole 5 mg tablet 10 mg PO DAILY TAB-A-NIKKI trazodone 50 mg tablet PO levocetirizine 5 mg tablet 5 mg PO QAM fluticasone propion-salmeterol [Advair Diskus] 100-50 mcg/dose blister with device 1 ea INHALATION Q12H polyethylene glycol 3350 17 gram/dose powder 17 g PO DAILY albuterol sulfate [Ventolin HFA] 90 mcg/actuation HFA aerosol inhaler inhalation (DME) blood pressure monitor Kit See Rx Instructions .Route Qty: 1 0RF Rx Instructions: As directed atomoxetine 80 mg capsule 80 mg PO QAM Qty: 30 0RF propranolol 20 mg tablet 20 mg PO TID Qty: 120 0RF Rx Instructions: may add one additional dose if HR is >120. Wait at least 1 hour between doses. trazodone 100 mg tablet 200 mg PO QDAY Qty: 180 0RF gabapentin 300 mg capsule 300 mg PO QDAY Qty: 90 0RF multivitamin with folic acid [Tab-A-Nikki] 400 mcg tablet 1 tab PO DAILY Qty: 90 3RF cholecalciferol (vitamin D3) 50 mcg (2,000 unit) capsule 50 mcg PO DAILY Qty: 90 0RF Follow Up/Referrals: Tahmina Gandhi MD [Primary Care Provider] - Stand Alone Forms: [facility] Info Instructions
--- OUTSIDE RECORDS SUMMARY | 2024-01-22 21:56 | XMS_ITS | Referral Summary ---
Author Organization [facility] Address [address] [place] [address] Care Team Providers Care Video Rental Clerk Name Role Phone Unavailable Primary Care Provider Unavailabl e Source Comments Patient records contain information from all sites at [facility]. For routine questions regarding patient records, call [phone] during business hours, M-F 8:00 AM - 5:00 PM Central Time. Record requests for emergency care only can be directed to [phone] at any time.[facility] Allergies Active Allergy Reactions Criticality Noted Date Comments [place] Other (see comments) Low 06/13/2023 Cyclobenzaprine Other [...] Problem Noted Date Diagnosed Date Hyperthyroidism 06/23/2023 Overview (06/23/2023): Hyperthyroidism consistent with Graves' disease, not on therapy yet except propranolol PMHx: sober x many months, living in transitional housing with own room, doing well FHx: no clear Graves' disease Assessment & Plan (08/29/2023 11:30 AM CDT): Video visit completed with Natalie; she is [...] stop post op and switch to above Assessment & Plan (06/23/2023 10:10 AM SHOE PLANNER): Natalie presents for above, she was 30 min late to consultation due to late taxi ride. She is ok today, better than recent ER visit Jun 01 where she presented iwht HR 150s and symptomatic. T3 from Jun 01 233; prior TSH 01/2023 suppressed, Ftt 1.8 She had thyroid uptake/scan = diffuse uptake, 29% ; thyroid US - small cystic nodules She was evaluated in ER for 'thyroid storm' put on beta blockers, Rx uptake/scan, and referred to Endocrine here for evaluation and management She has fatigue on minimal exertion, tremors, tachycardia and high blood pressure at times, but prior workup for cardiac issues negative We pearlley reviewed her labs, scan and diagnosis as well as management She is leaning toward GONZALEZ therapy, but with her housing facility may be tricky with radiation safety, though she has her own room. I suggest, as this appears mild Graves', to start anti-thyroid Rx (methimazole) and reassess in 6-12 months if she may go into remission; if not, then pursue GONZALEZ at that time We discussed all options -methimazole, GONZALEZ and surgery carefully and in detail Side effects of methimazole discussed as well Plan Labs today If confirmed hyperthyroid, refill propranolol, start methimazole 10 mg daily (confirmed with labs) Repeat labs 1 month locally RTC 6 months with labs and visit (Pro or HEAVY EQUIPMENT DIESEL MECHANIC) Social History Tobacco Use Types Packs/Day Years Used Date Smoking Tobacco: Former Cigarettes Passive Smoke Exposure: Current Smokeless Tobacco: Never Tobacco Cessation:Counseling Given: Not Answered [facility] Utilities Answer Date Recorded In the past 12 months has [employer] gas, oil, or water [employer] threatened to shut off services in your [...] living situation today? I have a [facility] place to live 08/24/2023 Sex and Gender Information Value Date Recorded Sex Assigned at Female 08/24/2023 7:50 PM CDT Gender Identity Female 08/24/2023 7:50 PM CDT Sexual Orientation Straight 08/24/2023 7: 50 PM CDT Last Filed Vital Signs Vital Sign Reading Time Taken Comments Blood Pressure 116/77 06/23/2023 8:33 AM SHOE PLANNER Pulse 76 06/23/2023 8:33 AM SHOE PLANNER Temperature - - Respiratory Rate - - Oxygen Saturation - - Inhaled Oxygen Concentration - - Weight 85.5 kg (188 lb 7.9 oz) 06/23/2023 8:33 A M SHOE PLANNER Height 166.8 cm (5' 5.67) 06/23/2023 8:33 AM CS T Body Mass Index 30.73 06/23/2023 8:33 AM SHOE PLANNER Plan of Treatment Not on file Medical Devices Implanted Type Area Rn Charge Device Identifier Shelf Expiration Date Model / [...]
--- OUTSIDE RECORDS SUMMARY | 2024-01-22 21:56 | XMS_ITS | Clinical Summary ---
Author Organization [facility] Address [address] [place] [address] Care Team Providers Care Electronic Equipment Repairer Name Role Phone Unavailable Primary Care Provider Unavailabl e Source Comments Patient records contain information from all sites at [facility]. For routine questions regarding patient records, call [phone] during business hours, M-F 8:00 AM - 5:00 PM Central Time. Record requests for emergency care only can be directed to [phone] at any time.[facility] Allergies Active Allergy Reactions Criticality Noted Date Comments [place] Other (see comments) Low 06/13/2023 Cyclobenzaprine Other [...] above Assessment & Plan (06/23/2023 10:10 AM INLAYER SILVER): Natalie presents for above, she was 30 [...] months with labs and visit (Pro or BLANKET WASHER) Social History Tobacco Use Types Packs/Day Years Used Date Smoking Tobacco: Former Cigarettes Passive Smoke Exposure: Current Smokeless Tobacco: Never Tobacco Cessation:Counseling Given: Not Answered [facility] Utilities Answer Date Recorded In the past 12 months has [employer] gas, oil, or water [employer] threatened to shut off services in your [...] your living situation today? I have a [facility] place to live 08/24/2023 Sex and Gender Information Value Date Recorded Sex Assigned at Female 08/24/2023 7:50 PM CDT Gender Identity Female 08/24/2023 7:50 PM CDT Sexual Orientation Straight 08/24/2023 7: 50 PM CDT Last Filed Vital Signs Vital Sign Reading Time Taken Comments Blood Pressure 116/77 06/23/2023 8:33 AM INLAYER SILVER Pulse 76 06/23/2023 8:33 AM INLAYER SILVER Temperature - - Respiratory Rate - - Oxygen Saturation - - Inhaled Oxygen Concentration - - Weight 85.5 kg (188 lb 7.9 oz) 06/23/2023 8:33 A M INLAYER SILVER Height 166.8 cm (5' 5.67) 06/23/2023 8:33 AM CS T Body Mass Index 30.73 06/23/2023 8:33 AM INLAYER SILVER Plan of Treatment Health Maintenance Due Date Last Done Comments HIV Screening 1981 Hepatitis C Screening 1981 Mammogram 1981 Hepatitis B Vaccines (1 of 3 - 19+ 3-dose series) 2000 COVID-19 Vaccine ( season) 2023 Cervical Cancer Screening 03/19/2023 03/19/2020 Depression Screening (Annual PHQ-2) 05/30/2023 DTaP,Tdap,and Td [...] this topic Medical Devices Implanted Type Area Precision Optics Technician Device Identifier Shelf Expiration Date Model / [...]
--- OUTSIDE RECORDS SUMMARY | 2024-01-22 21:57 | XMS_ITS | Encounter Summary ---
Author Organization [facility] Address [address] [facility] [place] [address] Care Team Providers Care Anode Adjuster Name Role Phone BetteShirlene MD Unavailable [phone] Pat Cole APRN BURLAP MAN Unavailable [phone] Letha Manzanares MD Unavailable [phone] Corby Centeno MD Unavailable [phone] Cynthia Dubon MD Unavailable [phone] Letha Manzanares MD Unavailable [phone] Wilma Saba MD Unavailable [phone] Jeannette Jean Baptiste NP Unavailable [phone] Cynthia Dubon MD Unavailable [phone] System, Provider Not In Primary Care Provider Un available Corby Centeno MD Unavailable [phone] Encounter Details Date Type Department Care Team (Late st Contact Info) Description 11/09/2023 [facility] [address] [id number] Rosalind Jacobo, RN Social History [...] in an abandoned building, in an overnight jail, or couch-surfing.) Yes 02/22/2023 Are you worried [...] Total Score: 1 04/07/20 23 7:51 AM HEALTH CENTER ASSISTANT documented as of this encounter Care Teams Anode Adjuster Relationship Specialty Start Date End Date System, Provider Not In PCP - General Clinic 07/15/23 Shirlene Amos MD [address] [place] [address] [place] [address] Dermatology 12/29/15 Pat Cole APRN CNP [address] [place] [address] [id number] Nurse Practitioner 01/19/22 Letha Manzanares MD [address] [place] [address] [id number] MD Ophthalmology 03/25/23 Corby Centeno MD [address] [place] [address] [id number] Dermatology 03/29/23 Cynthia Dubon MD [address] [place] [address] 188095 Cardiovascular Disease 04/19/23 Letha Manzanares MD [address] [place] [address] [id number] Assigned Surgical Provider 04/23/23 11/19/23 Wilma Saba MD [address] [place], [place] [address] Assigned OBGYN Provider 04/09/23 Jeannette Jean Baptiste NP [address] [place] [address] [phone] Assigned PCP 06/23/23 Cynthia Dubon MD [address] [place] [address] [phone] Assigned Heart and Vascular Provider 07/01/23 Corby Centeno MD [address] [place] [address] Assigned Surgical Provider 11/20/23 documented as of this encounter
--- OUTSIDE RECORDS SUMMARY | 2024-01-22 21:57 | XMS_ITS | Encounter Summary ---
Author Organization [facility] Address [address] [facility] [place] [address] Care Team Providers Care Repairer Welding Equipment Name Role Phone BetteShirlene MD Unavailable [phone] [facility] Primary Care Provider Burton Duncan MD Unavailable [phone] Pat Cole APRN METAL TILE LATHER Unavailable [phone] Yohana Estes PA-C Unavailable [phone] Letha Manzanares MD Unavailable [phone] Corby Centeno MD Unavailable [phone] Cynthia Dubon MD Unavailable [phone] Letha Manzanares MD Unavailable [phone] Wilma Saba MD Unavailable [phone] Jeannette Jean Baptiste NP Unavailable [phone] Cynthia Dubon MD Unavailable [phone] System, Provider Not In Primary Care Provider Un available Corby Centeno MD Unavailable [phone] Encounter Details Date Type Department Care Team (Late st Contact Info) Description 04/29/2023 MyC Medical Advice [facility] [address] [place] [facility] [address] [place] [phone] Luz Alva CMA Social History Tobacco Use [...] in an abandoned building, in an overnight long-term, or couch-surfing.) Yes 02/22/2023 Are you worried [...] Total Score: 1 04/07/20 23 7:51 AM PRODUCTION FLOATER documented as of this encounter Care Teams Repairer Welding Equipment Relationship Specialty Start Date End Date Clinic - [facility] [address] [place] [address] PCP - General Clinic 10/03/22 07/14/23 System, Provider Not In PCP - General Clinic 07/15/23 Shirlene Amos MD [address] [facility] [place] [address] Dermatology 12/29/15 Burton Duncan MD [address] [place] [address] Assigned Musculoskeletal Provider 12/19/21 07/21/23 Pat Cole APRN [facility] [address] [place] [address] [id number] Nurse Practitioner 01/19/22 Yohana Estes PA-C [address] [place] [address] Assigned PCP 05/08/22 06/22/23 Letha Manzanares MD [address] [place] [address] [id number] Ophthalmology 03/25/23 Corby Centeno MD [address] [place] [address] [phone] Dermatology 03/29/23 Cynthia Dubon MD [address] [place] [address] Cardiovascular Disease 04/19/23 Letha Manzanares MD [address] [place], [place] [phone] Assigned Surgical Provider 04/23/23 11/19/23 Wilma Saba MD [address] [address] Assigned OBGYN Provider 04/09/23 Jeannette Jean Baptiste NP [address] [place] [address] Assigned PCP 06/23/23 Cynthia Dubon MD [address] [place] [address] [id number] Assigned Heart and Vascular Provider 07/01/23 Corby Centeno MD [address] [place], [place] [id number] Assigned Surgical Provider 11/20/23 documented as of this encounter
--- OUTSIDE RECORDS SUMMARY | 2024-01-22 21:57 | XMS_ITS | Encounter Summary ---
Author Organization [place] Address [address] [facility] [place] [address] Care Team Providers Care Real Time Trader Name Role Phone BetteShirlene MD Unavailable [facility] Primary Care Provider Heidi Gunn PA-C Unavailable [phone] Burton Duncan MD Unavailable [phone] Pat Cole APRN ACCOUNTING SUPERVISOR Unavailable [phone] Yohana Estes-C Unavailable [phone] Letha Manzanares MD Unavailable [phone] Corby Centeno MD Unavailable [phone] Cynthia Dubon MD Unavailable [phone] Letha Manzanares MD Unavailable Wilma Saba MD Unavailable [phone] Jeannette Jean Baptiste NP Unavailable [phone] Cynthia Dubon MD Unavailable [phone] System, Provider Not In Primary Care Provider Un available Corby Centeno MD Unavailable [phone] Reason for Visit * Reason Onset Date Comments Procedure 03/01/2022 bilateral lumbar 3,4,5 medial branch nerve blocks #1 with plan to proceed to RFA Encounter Details Date Type Department Care Team (Late st Contact Info) Description 03/01/2022 Telephone [facility] [address] [facility] [place] [address] Pat Cole, KATHLEEN ACCOUNTING SUPERVISOR [address] [facility] [place] [address] Procedure ( bilateral lumbar 3,4,5 medial branch [...] be done at which interventional clinic site? [facility] Procedure ordered by Dr. Rice [...] PA is needed ?? IF SCHEDULING IN [place] AND NEEDS A PA, IT IS OKAY TO SCHEDULE. [place] HANDLES THEIR OWN PA'S AFTER THE PATIENT [...] route to Yelena Begum and PM&R Nurse [[id number]] Is an machine silk screen printer needed? No Patient has a drive home? [...] and note in scheduling comments.) Allergies: Mold, [place] [nuts], Claritin [loratadine], Flexeril [cyclobenzaprine], Imitrex [sumatriptan], and Morphine Does patient have an MRI/CT? YES: 2020 Check Procedure Scheduling Grid to see if required. ?? Was the MRI done within the last 3 years? Yes ?? If yes, where was the MRI done i.e.[facility], [facility], [facility], [facility], [place] etc? [facility] ?? If no, do not schedule and route to nursing/ Dr. Beck's Team ?? If MRI was not done at [facility], [facility] or [facility] Imaging do NOT schedule and route to [...] day of the procedu re, please call [phone] to reschedule. YES: Reminders: ?? 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 documented as of this encounter Care Teams Real Time Trader Relationship Specialty Start Date End Date Clinic - [facility] [address] [place] [address] PCP - General Clinic 10/03/22 07/14/23 System, Provider Not In PCP - General Clinic 07/15/23 Shirlene Amos MD [address] [facility] [place] [address] Dermatology 12/29/15 Heidi Gunn PA-C [address] [place] [address] Assigned PCP 03/08/21 05/07/22 Burton Duncan MD [address] [place] [address] Assigned Musculoskeletal Provider 12/19/21 07/21/23 Pat Cole APRN CNP [address] [place] [address] Nurse Practitioner 01/19/22 Yohana Estes PA-C [address] [place] [address] Assigned PCP 05/08/22 06/22/23 Letha Manzanares MD [address] [place] [address] [id number] Ophthalmology 03/25/23 Corby Centeno MD [address] [place] [address] 398125 Dermatology 03/29/23 Cynthia Dubon MD [address] [place] [address] 692445 Cardiovascular Disease 04/19/23 Letha Manzanares MD [address] [place] [address] 185035 Assigned Surgical Provider 04/23/23 11/19/23 Wilma Saba MD [address] [place], [place] 8[address] Assigned OBGYN Provider 04/09/23 Jeannette Jean Baptiste PROPERTY DISPOSAL OFFICER [address] [place] [address] 914065 Assigned PCP 06/23/23 Cynthia Dubon MD [address] [place] [address] Assigned Heart and Vascular Provider 07/01/23 Corby Centeno MD [address] [place] [address] Assigned Surgical Provider 11/20/23 documented as of this encounter
--- OUTSIDE RECORDS SUMMARY | 2024-01-22 21:57 | XMS_ITS | Encounter Summary ---
Author Organization [place] Address [address] [place] [address] Care Team Providers Care Sales And Service Technician Name Role Phone BetteShirlene MD Unavailable Pat Cole APRN CLAIM SPECIALIST Unavailable [phone] Letha Manzanares MD Unavailable [phone] Corby Centeno MD Unavailable [phone] Cynthia Dubon MD Unavailable [phone] Letha Manzanares MD Unavailable [phone] Wilma Saba MD Unavailable [phone] Jeannette Jean Baptiste NP Unavailable [phone] Cynthia Dubon MD Unavailable [phone] System, Provider Not In Primary Care Provider Un available Reason for Visit * Reason Onset Date Comments Previsit 10/18/2023 Encounter Details Date Type Department Care Team (Late st Contact Info) Description 10/18/2023 PRE VISIT [facility] [address] [address] Corby Centeno MD [address] [place] [address] Previsit Social History Tobacco Use Types Packs/Day [...] in an abandoned building, in an overnight fdc, or couch-surfing.) Yes 02/22/2023 Are you worried [...] VISIT INFORMATION: Date: 10.18.23 Time: 8:00 Location: [facility] REFERRAL INFORMATION: Referring provider: Self Referring providers clinic: Reason for visit/diagnosis allergy consult, per caregiver, recs in epic, self referred RECORDS REQUESTED FROM: Clinic name Comments Records Status Imaging Status Michelle GARCIA [address] 01.08.23 [facility] documented in this encounter Plan of Treatment Not on file documented as of this encounter Visit Diagnoses Not on filedocumented in this encounter Additional Health Concerns Assessment Noted Time PHQ-9 Depression Total Score: 1 04/07/20 23 7:51 AM STONE SPLITTER documented as of this encounter Care Teams Sales And Service Technician Relationship Specialty Start Date End Date System, Provider Not In PCP - General Clinic 07/15/23 Shirlene Amos MD [address] [place] [address] [place] [address] Dermatology 12/29/15 Pat Cole APRN [facility] [address] [place] [address] 393905 Nurse Practitioner 01/19/22 Letha Manzanares MD [address] [place] [address] 587855 Ophthalmology 03/25/23 Corby Centeno MD [address] [place] [address] 765395 Dermatology 03/29/23 Cynthia Dubon MD [address] [place] [address] 480125 Cardiovascular Disease 04/19/23 Letha Manzanares MD [address] [place] [address] 660685 Assigned Surgical Provider 04/23/23 11/19/23 Wilma Saba MD [address] [place], [place] 2824[address] Assigned OBGYN Provider 04/09/23 Jeannette Jean Baptiste NP [address] 704305 Assigned PCP 06/23/23 Cynthia Dubon MD [address] [place], [place] 607015 Assigned Heart and Vascular Provider 07/01/23 documented as of this encounter
--- OUTSIDE RECORDS SUMMARY | 2024-01-22 21:57 | XMS_ITS | Encounter Summary ---
Author Organization [place] Address [address] [facility] [place] [address] Care Team Providers Care Property Staff Accountant Name Role Phone ZohaibyanelisShirlene MD Unavailable Pat Cole APRN VAULT MANAGER Unavailable [phone] Letha Manzanares MD Unavailable [phone] Corby Centeno MD Unavailable [phone] Cynthia Dubon MD Unavailable [phone] Letha Manzanares MD Unavailable [phone] Wilma Saba MD Unavailable [phone] Jeannette Jean Baptiste NP Unavailable [phone] Cynthia Dubon MD Unavailable [phone] System, Provider Not In Primary Care Provider Un available Reason for Referral * Medication Prior Authorization - Closed Specialty Diagnoses / Procedures Referred By Contmoises t Referred To Contact Diagnoses Mild intermittent asthma with acute exacerbation Non-seasonal allergic rhinitis due to pollen Angioedema, subsequent encounter Nut allergy Atopy Corby Centeno MD [address] [place] [address] Referral ID Status Reason Start Date Expiration Date Visits Re quested Visits Authorized [id number] Closed 1 1 Reason for Visit * Reason Comments Allergy Consult Per pt highly allerg ic to molds, completed prick/blood testing, approx 4 years ago fall, window open overnight, woke up with tongue swelling/perioral numbness/swelling, treated with epipen at ED, resolved, continued happening, gargling with liquid benadryl helps, has benadryl as emergency medicine. Saw welcome desk agent, reyna but caused palpations, didn't help symptoms. Allergic to decongestants per pt. Worst late fall early spring, also suspects trees, unable to go outside/hiking/being outside Encounter Details Date Type Department Care Team ( Contact Info) Description 10/18/2023 8:00 AM CDT Office Visit [facility] [address] [address] Corby Centeno MD [address] [place] [address] Mild intermittent asthma with acute exacerbation [...] from the original note were not included. Former[facility] Dermato-allergology Note Office visit Encounter Date: October 18, 2023 CC: Allergy Consult (Per pt highly allergic to molds, completed prick/blood testing, approx 4 yearsago fall, window open overnight, woke up with tongue swelling/perioral numbness/swelling, treated with epipen at ED, resolved, continued happening, gargling with liquid benadryl helps, has benadryl as emergency medicine. Saw welcome desk agentreyna but caused palpations, didn't help symptoms. 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 Social History: The patient works at [employer]. Patient has the following hobbies or non-occupational [...] Imagin03/23/23 Jeannette Jean Baptiste NP (FP) FROM [facility]: Patient presents with: Asthma: Gotten worse Allergies: Possible referral Natalie is a resident of [facility], she is currently in their short term program. She states she has been sober for 90 days and has been at [facility] for 30 days. This is her [...] 100-50 MCG/ACT inhaler 01/13/23 Dr. Elan Jeffrey ([facility] ED) FROM [facility]: Female with a history of environmental allergies who presents the emergency department for evaluation of an allergic reaction. Patient states that she was in her alf cell and was laying down and wascold [...] answered to satisfaction. 01/08/23 Dr. Demetrio Lugo ([facility]) FROM [facility]: Presents to the ED for evaluation of suspected allergic reaction. She is in alf currently and is concerned that there is mold in her alf cell. She states that in the past she has had skin changes when exposed to mold. She denies shortness of breath, cough, chest pain, lightheadedness or loss of consciousness. She received 2 doses of epinephrine in alf and is presenting with some palpitations and nervousness. She has never been hospitalized for allergic reactions and has never been intubated.She has no other recent exposures to known allergens including perfumes, soaps or animals. She has recently been wearing new clothes in the form of her alf uniform. She has no other issues to [...] reaction although she did receive epinephrine in alf. She is awake and alert and has [...] improve steadily can be discharged back to alf at that time with the below delineated outpatient medications. diphenhydrAMINE (BENADRYL) 25 mg tablet EPINEPHrine (EPIPEN) 0.3 mg/0.3 mL auto-injector 05/04/16 Dr. Richardson Carranza (derm) FROM [facility]: Presents for an evaluation of dry skin [...] 04/05/16 Dr. Bharath Conti ([facility]) FROM [facility]: Relates that she developed itchy patches on her skin earlier today and became very anxious that shewas having an allergic reaction. Natalie took several doses of hfsy-psy-stzuzjp diphenhydramine. The itching and rash have subsided [...] her symptoms worsen. 11/05/15 Dr. Bharath Conti ([facility]) FROM [facility]: Relates that she has been having a [...] worsen. 11/03/15 Dr. Barb Nolan/Dr. Frederick Chamorro ([facility]) FROM [facility]: Female who has a history of constipation [...] so since that time has begun swelling. Ad Trafficker: Dr. Moreland in [place]. She met him for the first time last which is 4 days ago. She saw him in [place]. [phone]. She is awaiting on lab work. She [...] her arm. She is working with an welcome desk agent in [place] and has appointment this coming . She's [...] mg ??3 days. She will call her welcome desk agent when she leaves. She will use her patient if needed. She will return if she has concerns. 10/24/15 Dr. Jesus Dolan ([facility]) FROM [facility]: She states she's had a history of [...] is a smoker. 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 FAMILY HISTORY: Reveals an uncle with allergic [...] in a month. 01/30/08 Dr. Joanie Rico ([facility] ED) FROM [facility]: Presents to Emergency Department complaining of right [...] Self, Allergy Tests: 09/20/12 Dr. Enrique Hawkins ([facility] allergy) Order for Future Allergy Testing: [x] Outpatient [] Inpatient: John..../ Bed .... Skin Atopy (atopic dermatitis) [x] Yes [] No .........see [facility] Contact allergies: [] Yes [x] No .......... Hand eczema: [x] Yes [] No .........see HPI Leading hand: [x] R [] L [] Ambidextrous Drug allergies: [] Yes [x] No which?...... all [facility]-listed allergies as of 10/18/23 are side effects; [...] tests) [] Pollen Panel = Tree, Grass, [place] (24 tests) [] Others: ... [] Patient's [...] 11 Tab grass (sorghum halepense) - 12 [place] mix (common Cocklebur, Waldron???s quarters, rough redroot Pigweed, Dock/Lacrosse) - 13 Mug wort (artemisia vulgare) - 14 Ragweed giant/short (ambrosia spp) - 15 White birch (Betula papyrifera) - 16 Tree mix 1 (Pecan, Maple BHR, [place] RVW, anguillan Blachly, black Derry) - 17 Red cedar (juniperus kathleen) - 18 Tree mix 2 (white Olivier, river/red Birch, black Henderson, common Staun[place], anguillan Elm) - 19 Box elder/Maple mix (acer spp) - 20 Haynes shagbark (carya ovata) - Conclusion: Nuts and Beans (Placed October 18, 2023) No Substance Readings (15min) Evaluation 1 Edgemont (prunus dulcis) - 2 [place] nut (bertholletia excels) - 3 Cashew nut (anacardium occidentale) - 4 Coconut (cocos nucifera) - 5 Hazelnut (corylus americana) - 6 Pecan (carya illinoinensis) - 7 Henderson (juglans regia) - 8 Pistachio nut (pistacia [...] and allergy test results and they can pattern changer time or can be incomplete because [...] Head of Dermato-Allergy Division Department of Dermatology [facility] Follow-up in Derm-Allergy clinic in 2 months [...] benadryl helps, has benadryl as emergency medicine.Saw welcome desk agent, reyna but caused palpations, didn't help symptoms. 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 documented as of this encounter Care Teams Property Staff Accountant Relationship Specialty Start Date End Date System, Provider Not In PCP - General Clinic 07/15/23 Shirlene Amos MD [address] [facility] [place] [address] Dermatology 12/29/15 Pat Cole APRN VAULT MANAGER [address] [place] [address] Nurse Practitioner 01/19/22 Letha Manzanares MD [address] [place] [address] Ophthalmology 03/25/23 Corby Centeno MD [address] [place] [address] 248315 MD Dermatology 03/29/23 Cynthia Dubon MD [address] [place] [address] 261515 Cardiovascular Disease 04/19/23 Letha Manzanares MD [address] [place] [address] 885095 Assigned Surgical Provider 04/23/23 11/19/23 Wilma Saba MD [address] 643684 Assigned OBGYN Provider 04/09/23 Jeannette Jean Baptiste NP [address] [place] [address] Assigned PCP 06/23/23 Cynthia Dubon MD [address] [place] [address] 363875 Assigned Heart and Vascular Provider 07/01/23 documented as of this encounter
--- OUTSIDE RECORDS SUMMARY | 2024-01-22 21:57 | XMS_ITS | Encounter Summary ---
Author Organization [place] Address [address] [facility] [place] [address] Care Team Providers Care Complex Case Manager Name Role Phone BetteShirlene MD Unavailable [phone] [facility] Primary Care Provider Burton Duncan MD Unavailable [phone] Pat Cole APRN PARK MAINTENANCE TECHNICIAN Unavailable [phone] Yohana Estes PA-C Unavailable [phone] Letha Manzanares MD Unavailable [phone] Corby Centeno MD Unavailable [phone] Cynthia Dubon MD Unavailable [phone] Letha Manzanares MD Unavailable [phone] Wilma Saba MD Unavailable [phone] Jeannette Jean Baptiste NP Unavailable [phone] Cynthia Dubon MD Unavailable [phone] System, Provider Not In Primary Care Provider Un available Corby Centeno MD Unavailable [phone] Encounter Details Date Type Department Care Team (Late st Contact Info) Description 12/14/2022 [facility] [address] [place] [address] [address] [place] [phone] Kristi Stone Social History Tobacco Use Types [...] Time PHQ-9 Depression Total Score: 1 10/19/19 23 2:57 PM CDT documented as of this encounter Care Teams Complex Case Manager Relationship Specialty Start Date End Date Clinic - [facility] [address] [place] [address] PCP - General Clinic 10/03/22 07/14/23 System, Provider Not In PCP - General Clinic 07/15/23 Shirlene Amos MD [address] [facility] [place] [address] Dermatology 12/29/15 Burton Duncan MD [address] [place] [address] Assigned Musculoskeletal Provider 12/19/21 07/21/23 Pat Cole APRN PARK MAINTENANCE TECHNICIAN [address] [place] [address] Nurse Practitioner 01/19/22 Yohana Estes PA-C [address] [place] [address] Assigned PCP 05/08/22 06/22/23 Letha Manzanares MD [address] [place] [address] 190185 MD Ophthalmology 03/25/23 Corby Centeno MD [address] [place] [address] 691865 Dermatology 03/29/23 Cynthia Dubon MD [address] [place] [address] 601695 Cardiovascular Disease 04/19/23 Letha Manzanares MD [address] [place] [address] 163985 Assigned Surgical Provider 04/23/23 11/19/23 Wilma Saba MD [address] 755544 Assigned OBGYN Provider 04/09/23 Jeannette Jean Baptiste THEATRE PROFESSOR [address] [place] [address] 374135 Assigned PCP 06/23/23 Cynthia Dubon MD [address] [place] [address] 160905 Assigned Heart and Vascular Provider 07/01/23 Corby Centeno MD [address] [place] [address] Assigned Surgical Provider 11/20/23 documented as of this encounter
--- OUTSIDE RECORDS SUMMARY | 2024-01-22 21:57 | XMS_ITS | Encounter Summary ---
Author Organization [place] Address [address] [facility] [place] [address] Care Team Providers Care Insulation Supervisor Name Role Phone BetteShirlene MD Unavailable [phone] [facility] Primary Care Provider Burton Duncan MD Unavailable [phone] Pat Cole APRN COMPOSITION PROFESSOR Unavailable [phone] Yohana Estes PA-C Unavailable [phone] Letha Manzanares MD Unavailable [phone] Corby Centeno MD Unavailable [phone] Cynthia Dubon MD Unavailable [phone] Letha Manzanares MD Unavailable [phone] Wilma Saba MD Unavailable [phone] Jeannette Jean Baptiste NP Unavailable [phone] Cynthia Dubon MD Unavailable [phone] System, Provider Not In Primary Care Provider Un available Corby Centeno MD Unavailable [phone] Reason for Visit * Reason Onset Date Comments Appointment 04/07/2023 IUD under anesth esia Encounter Details Date Type Department Care Team (Late st Contact Info) Description 04/07/2023 Telephone [facility] [place] [address] [facility] [address] [place] [address] Wilma Saba MD [address] [place] [address] Appointment (IUD under anesthesia ) [...] in an abandoned building, in an overnight correction, or couch-surfing.) Yes 02/22/2023 Are you worried [...] encounter Miscellaneous Notes * Telephone Encounter - DeonteuzairHannahie - 04/07/2023 12:21 PM CST [facility] Call Center Phone Message May a detailed message be left on voicemail: yes Reason for Call: Appointment Intake Referring Provider Name: Jeannette Jean Baptiste NP Diagnosis and/or Symptoms: IUD placement under anesthesia Please call pt to schedule an IUD placement under anesthesia, thank you! Action Taken: Other: joselyn internal wholesaler Screening: Not Applicable K DOCK MATERIAL MOVER documented in this encounter Plan of Treatment Not on file documented as of this encounter Visit Diagnoses Not on filedocumented in this encounter Additional Health Concerns Assessment Noted Time PHQ-9 Depression Total Score: 1 04/07/20 7:51 AM TRUCK DOCK MATERIAL MOVER documented as of this encounter Care Teams Insulation Supervisor Relationship Specialty Start Date End Date Clinic - [facility] [address] [place] [address] PCP - General Clinic 10/03/22 07/14/23 System, Provider Not In PCP - General Clinic 07/15/23 Shirlene Amos MD [address] [facility] [place] [address] Dermatology 12/29/15 Burton Duncan MD [address] [place] [address] Assigned Musculoskeletal Provider 12/19/21 07/21/23 Pat Cole APRN CNP [address] [place] [address] Nurse Practitioner 01/19/22 Yohana Estes PA-C [address] [place] [address] Assigned PCP 05/08/22 06/22/23 Letha Manzanares MD [address] [place] [address] MD Ophthalmology 03/25/23 Corby Centeno MD [address] [place] [address] Dermatology 03/29/23 Cynthia Dubon MD [address] [place] [address] Cardiovascular Disease 04/19/23 Letha Manzanares MD [address] [place] [address] Assigned Surgical Provider 04/23/23 11/19/23 Wilma Saba MD [address] [facility] [address] [place] [address] [address] Assigned OBGYN Provider 04/09/23 Jeannette Jean Baptiste NP [address] [place] [address] [id number] Assigned PCP 06/23/23 Cynthia Dubon MD [address] [place] [address] 237605 Assigned Heart and Vascular Provider 07/01/23 Corby Centeno MD [address] [place] [address] 071995 Assigned Surgical Provider 11/20/23 documented as of this encounter
--- OUTSIDE RECORDS SUMMARY | 2024-01-22 21:57 | XMS_ITS ---
Author Organization [facility] Address [address] [place] [address] Care Team Providers Care Property Handler Name Role Phone Unavailable Unavailable Unavailable Surgery Details Not on file Complications Check Surgery Details section. Procedure Estimated Blood Loss Check Surgery Details section. Procedure Findings Check Surgery Details section. Procedure Specimens Taken Check Surgery Details section.
--- OUTSIDE RECORDS SUMMARY | 2024-01-22 21:57 | XMS_ITS | Clinical Summary ---
Author Organization [place] Address [address] [facility] [place] [address] Care Team Providers Care Ceramics Instructor Name Role Phone BetteShirlene MD Unavailable Pat Cole APRN ASSEMBLY INSPECTOR HELPER Unavailable Letha Manzanares MD Unavailable [phone] Corby Centeno MD Unavailable Cynthia Dubon MD Unavailable [phone] Wilma Saba MD Unavailable [phone] Jeannette Jean Baptiste NP Unavailable [phone] Cynthia Dubon MD Unavailable [phone] System, Provider Not In Primary Care Provider Un available Corby Centeno MD Unavailable [phone] Allergies Active Allergy Reactions Criticality Noted Date [...] Overview: Added automatically from request for surgery [id number] Back muscle spasm 04/28/2018 Last Assessment & [...] bef 03/19/21. 03/25/20 Pt sent results via Cameo. 03/26/20 Pt viewed results on Cameo. 03/05/21 Reminder mychart 04/02/21 Reminder call - [...] Date Type Department Care Team Description 11/09[place]2023 [facility] [facility] [address] [address] Rosalind Jacobo, CHUCKIE from Last 3 Months Immunizations Name Administration Dates Next Due D0o7-14 Novel Flu 06/23/2009 Influenza (IIV3) PF 03/11/2014,06/23/2009 [...] in an abandoned building, in an overnight alf, or couch-surfing.) Yes 02/22/2023 Are you worried [...] Comments Blood Pressure 96/61 07/15/2023 9:30 AM DECORATING INSTRUCTOR Pulse 64 07/15/2023 9:30 AM DECORATING INSTRUCTOR Temperature 36.7 ??C (98 ??F) 07/15/2023 9:42 AM DECORATING INSTRUCTOR Respiratory Rate 18 07/15/2023 9:42 AM DECORATING INSTRUCTOR Oxygen Saturation 98% 07/15/2023 9:42 AM DECORATING INSTRUCTOR Inhaled Oxygen Concentration - - Weight 88 kg (194 lb 0.1 oz) 07/15/2023 6:41 AM DECORATING INSTRUCTOR Height 166.6 cm (5' 5.59) 07/15/2023 6:41 AM CS T Body Mass Index 31.7 07/15/2023 6:41 AM DECORATING INSTRUCTOR Plan of Treatment Health Maintenance Due Date [...] this topic Medical Devices Implanted Type Area Fighting Vehicle Systems Maintainer Device Identifier Shelf Expiration Date Model / Serial / Lot Iud Contraceptive Device Mirena [id number] - [id number] Implanted:Qty: 1 on 07/15/2023 by Wilma Saba MD at [facility] Contraceptive Device N/A: Uterus HARI 06/29/2025 [id number] [id number]- [id number] Arthrex Ankle Fracture Management System, 2.6mm Drill Bit, Cannulated Implanted:Qty: 1 on 11/04/2021 by Sukumar Villarreal MD at [facility] Right: Ankle [id number] 3 Arthrex Ankle Fracture Management System, 4mm Cannulated, Short Threaded, 40mm Implanted:Qty: 1 on 11/04/2021 by Sukumar Villarreal MD at [facility] Right: Ankle [id number] 2220 3 Arthrex Ankle Fracture Management System, 4mm Cannulated, Short Thread, 50mm Implanted:Qty: 1 on 11/04/2021 by Sukumar Villarreal MD at [facility] Right: Ankle [id number] -50 2220 3 Explanted Type Area Fighting Vehicle Systems Maintainer Device Identifier Shelf Expiration Date Model / Serial / Lot Arthrex Ankle Fracture Management System, Guidewire W/ Trocar Tip, Threaded, 0.062 In Explanted:Qty: 2 on 11/04/2021 by Sukumar Villarreal MD at [facility] Right: Ankle [id number] 2220 3 Procedures Procedure Name Priority Date/Time Associated Diagnosis Comments COMPREHENSIVE METABOLIC PANEL STAT 04/19/2023 10:11 PM DECORATING INSTRUCTOR HIV ANTIGEN ANTIBODY COMBO Routine 04/07/2023 9:34 AM DECORATING INSTRUCTOR History of substance abuse (H) HEPATITIS C SCREEN REFLEX TO HCV RNA QUANT AND GENOTYPE Routine 04/07/2023 9:34 AM DECORATING INSTRUCTOR History of substance abuse (H) LIPID REFLEX [...] (ABNORMAL) Comprehensive metabolic panel (04/19/2023 10:11 PM DECORATING INSTRUCTOR) Sodium 138 135 - 145 mmol/L 04/19/2023 10:59 PM DECORATING INSTRUCTOR [facility] Comment:Reference intervals for this test were updated on 02/22/2023 to more accurately reflect our healthy population. There may be differences in the flagging of prior results with similar values performed with this method. Interpretation of those prior results can be made in the context of the updated reference intervals. Potassium 4.0 3.4 - 5.3 mmol/L 04/19/2023 10:59 PM DECORATING INSTRUCTOR [facility] Carbon Dioxide (CO2) 28 22 - 29 mmol/L 04/19/2023 10:59 PM DECORATING INSTRUCTOR [facility] Anion Gap 7 7 - 15 mmol/L 04/19/2023 10:59 PM DECORATING INSTRUCTOR [facility] Urea Nitrogen 16.1 6.0 - 20.0 mg/dL 04/19/2023 10:59 PM DECORATING INSTRUCTOR [facility] Creatinine 0.89 0.51 - 0.95 mg/dL 04/19/2023 10:59 PM DECORATING INSTRUCTOR [facility] GFR Estimate 83 >60 mL/min/1. 73m2 04/19/2023 10:59 PM DECORATING INSTRUCTOR [facility] Calcium 9.2 8.6 - 10.0 mg/dL 04/19/2023 10:59 PM DECORATING INSTRUCTOR [facility] Chloride 103 98 - 107 mmol/L 04/19/2023 10:59 PM DECORATING INSTRUCTOR [facility] Glucose 105(H) 70 - 99 mg/dL 04/19/2023 10:59 PM DECORATING INSTRUCTOR [facility] Alkaline Phosphatase 70 40 - 150 U/L 04/19/2023 10:59 PM DECORATING INSTRUCTOR [facility] Comment:Reference intervals for this test were updated on 04/12/2023 to more accurately reflect our healthy population. There may be differences in the flagging of prior results with similar values performed with this method. Interpretation of those prior results can be made in the context of the updated reference intervals. AST 19 0 - 45 U/L 04/19/2023 10:59 PM DECORATING INSTRUCTOR [facility] Comment:Reference intervals for this test were updated on 11/08/2022 to more accurately reflect our healthy population. There may be differences in the flagging of prior results with similar values performed with this method. Interpretation of those prior results can be made in the context of the updated reference intervals. ALT 25 0 - 50 U/L 04/19/2023 10:59 PM DECORATING INSTRUCTOR [facility] Comment:Reference intervals for this test were updated on 11/08/2022 to more accurately reflect our healthy population. There may be differences in the flagging of prior results with similar values performed with this method. Interpretation of those prior results can be made in the context of the updated reference intervals. Protein Total 6.5 6.4 - 8.3 g/dL 04/19/2023 10:59 PM DECORATING INSTRUCTOR [facility] Albumin 3.9 3.5 - 5.2 g/dL 04/19/2023 10:59 PM DECORATING INSTRUCTOR [facility] Bilirubin Total <0.2 <=1.2 mg/dL 04/19/2023 10:59 PM DECORATING INSTRUCTOR [facility] Blood BLOOD SPECIMEN / Unknown Venipuncture / Unknown 04/19/2023 10:11 PM DECORATING INSTRUCTOR 04/19/2023 10:19 PM DECORATING INSTRUCTOR Aida Teague MD LAB - BLOOD ORDERABL ES [facility] [place] [facility] [address] [facility], [address] [phone] [phone] * HIV Antigen Antibody Combo [place] (04/07/2023 9:34 AM DECORATING INSTRUCTOR) HIV Antigen Antibody Combo Nonreactive Nonreactive 04/08/2023 10:32 AM DECORATING INSTRUCTOR SPECIALTY CORE/PROT/EN DO Comment:HIV-1 p24 Ag & HIV-1 /HIV-2 Ab Not Detected Blood BLOOD SPECIMEN / Unknown Venipuncture / Unknown 04/07/2023 9:34 AM DECORATING INSTRUCTOR 04/07/2023 9:34 AM DECORATING INSTRUCTOR Jeannette Jean Baptiste NP LAB - BLOOD ORDERABL ES SPECIALTY CORE/PROT/ENDO [facility] Specialty Core/Prot/Endo [address] [facility], Room [address] [phone] * Hepatitis C Screen Reflex to HCV RNA Quant and Genotype (04/07/2023 9:34 AM DECORATING INSTRUCTOR) Hepatitis C Antibody Nonreactive Nonreactive 04/08/2023 9:37 AM DECORATING INSTRUCTOR SPECIALTY CORE/PROT/EN DO Blood BLOOD SPECIMEN / Unknown Venipuncture / Unknown 04/07/2023 9:34 AM DECORATING INSTRUCTOR 04/07/2023 9:34 AM DECORATING INSTRUCTOR Narrative [facility] SPECIALTY CORE/PROT/ENDO - 04/08/2023 9:37 AM DECORATING INSTRUCTOR Assay performance characteristics have not been established for newborns, infants, and children. Jeannette Jean Baptiste NP LAB - BLOOD ORDERABL ES [facility] SPECIALTY CORE/PROT/ENDO [facility] Specialty Core/Prot/Endo 500 [facility] J [facility], Room [address] [phone] * Lipid panel reflex to direct LDL [...] or equal to 220 mg/dL Eulalia Redman VEST PRESSER ASSEMBLY INSPECTOR HELPER LAB - BLO OD ORDERABLES [facility] [facility] [address] [facility], [address] [address], [facility] [phone] * Pap screen with HPV - recommended [...] component of this testing was completed at [facility] 02/24/2023 3:01 PM CDT SPECIALTY LABS Brushing CERVIX UTERI STRUCTURE / Unknown Non-blood Collection / Unknown 02/22/2023 11:20 AM CDT 02/22/2023 11:50 AM CDT Eulalia Redman KATHLEEN ASSEMBLY INSPECTOR HELPER LAB - IRENE KER AP SPECIALTY LABS Specialty Lab [address] [facility] [address] [facility], Room [address]580 [place] [address], [facility] [phone] * HPV High Risk Types DNA Cervical (02/22/2023 11:20 AM CDT) Other HR HPV Negative Negative 02/28/2023 12:40 PM CDT [facility] HPV16 DNA Negative Negative 02/28/2023 12:40 PM CDT [facility]ST[facility] HPV18 DNA Negative Negative 02/28/2023 12:40 PM CDT [facility]NOST[facility] FINAL DIAGNOSIS This patient's sample is negative for HPV DNA. This test was developed and its performance characteristics determined by the [facility], Molecular Diagnostics Laboratory. It [...] AM CDT 02/25/2023 10:26 AM CDT Eulalia Redman KATHLEEN ASSEMBLY INSPECTOR HELPER LAB - BLO OD ORDERABLES [facility]ST[facility] Molecular Diagnostics [address] [facility] [address] [facility], Room [address] [place] [address] [phone] from Last 3 Months or Most Recently Relevant to Health Maintenance Care Teams Ceramics Instructor Relationship Specialty Start Date End Date System, Provider Not In PCP - General Clinic 07/15/23 Shirlene Amos MD [address] [facility] [place] [address] Dermatology 12/29/15 Pat Cole APRN ASSEMBLY INSPECTOR HELPER [address] [place] [address] 837895 Nurse Practitioner 01/19/22 Letha Manzanares MD [address] [place] [address] 666965 Ophthalmology 03/25/23 Corby Centeno MD [address] [place] [address] Dermatology 03/29/23 Cynthia Dubon MD [address] [place], [place] 769185 Cardiovascular Disease 04/19/23 Wilma Saba MD [address] [place], [place] 875794 Assigned OBGYN Provider 04/09/23 Jeannette Jean Baptiste NP [address] [place] [address] [phone] Assigned PCP 06/23/23 Cynthia Dubon MD [address] [place] [address] [phone] Assigned Heart and Vascular Provider 07/01/23 Corby Centeno MD [address] [place] [address] 699635 Assigned Surgical Provider 11/20/23
--- OUTSIDE RECORDS SUMMARY | 2024-01-22 21:57 | XMS_ITS | Encounter Summary ---
Author Organization [place] Address [address] [facility] [place] [address] Care Team Providers Care Job Press Feeder Name Role Phone BetteShirlene MD Unavailable [phone] Pat Cole APRN DIE REPAIRER FORGING Unavailable [phone] Letha Manzanares MD Unavailable [phone] Corby Centeno MD Unavailable [phone] Cynthia Dubon MD Unavailable [phone] Letha Manzanares MD Unavailable [phone] Wilma Saba MD Unavailable [phone] Jeannette Jean Baptiste NP Unavailable [phone] Cynthia [place] MD Unavailable [phone] System, Provider Not In Primary Care Provider Un available Reason for Visit * Reason Onset Date Comments Appointment 10/14/2023 Allergy new pt a ppt Encounter Details Date Type Department Care Team (Late st Contact Info) Description 10/14/2023 Telephone [facility] D[facility]atology [facility] [place] [address] [facility] 3rd [place] [address] Corby Centeno MD [address] [place] [address] Appointment (Allergy new pt appt) Social History [...] in an abandoned building, in an overnight [place], or couch-surfing.) Yes 02/22/2023 Are you worried [...] pt. Confirmed appt details. Julienne Eugene, Procedure [employer] 10/14/2023 10:48 AM documented in this encounter Plan of Treatment Not on file documented as of this encounter Visit Diagnoses Not on filedocumented in this encounter Additional Health Concerns Assessment Noted Time PHQ-9 Depression Total Score: 1 04/07/20 23 7:51 AM DIRECTOR OF RESEARCH CENTER documented as of this encounter Care Teams Job Press Feeder Relationship Specialty Start Date End Date System, Provider Not In PCP - General Clinic 07/15/23 Shirlene Amos MD [address] [place] [address] [place] [address] Dermatology 12/29/15 Pat Cole APRN [facility] [address] [place] [address] Nurse Practitioner 01/19/22 Letha Manzanares MD [address] [place] [address] 084355 Ophthalmology 03/25/23 Corby Centeno MD [address] [place] [address] [phone] Dermatology 03/29/23 Cynthia Dubon MD [address] [place] [address] 827075 Cardiovascular Disease 04/19/23 Letha Manzanares MD [address] [place] [address] Assigned Surgical Provider 04/23/23 11/19/23 Wilma Saba MD [address] [place] [address] [phone] Assigned OBGYN Provider 04/09/23 Jeannette Jean Baptiste NP [address] [address] Assigned PCP 06/23/23 Cynthia Dubon MD [address] [place] [address] Assigned Heart and Vascular Provider 07/01/23 documented as of this encounter
--- OUTSIDE RECORDS SUMMARY | 2024-01-22 21:57 | XMS_ITS | Encounter Summary ---
Author Organization [place] Address [address] [facility] [place] [address] Care Team Providers Care Rooming House Inspector Name Role Phone BetteShirlene MD Unavailable [phone] Pat Cole APRN CLOTH BLEACHING RANGE TENDER Unavailable [phone] Letha Manzanares MD Unavailable [phone] Corby Centeno MD Unavailable [phone] Cynthia Dubon MD Unavailable [phone] Letha Manzanares MD Unavailable [phone] Wilma Saba MD Unavailable [phone] Jeannette Jean Baptiste NP Unavailable [phone] Cynthia [place] MD Unavailable [phone] System, Provider Not In Primary Care Provider Un available Corby Centeno MD Unavailable [phone] Encounter Details Date Type Department Care Team (Late st Contact Info) Description 10/14/2023 [facility] [address] [place] [address] Kristi Stone Social History Tobacco Use Types [...] Total Score: 1 04/07/20 23 7:51 AM BLUE PRINT CONTROL CLERK documented as of this encounter Care Teams Rooming House Inspector Relationship Specialty Start Date End Date System, Provider Not In PCP - General Clinic 07/15/23 Shirlene Amos MD [address] [facility] [address] Dermatology 12/29/15 Pat Cole APRN CNP [address] [place] [address] [phone] Nurse Practitioner 01/19/22 Letha Manzanares MD [address] [place] [address] MD Ophthalmology 03/25/23 Corby Centeno MD [address] [place] [address] 915215 Dermatology 03/29/23 Cynthia Dubon MD [address] [place] [address] 916465 Cardiovascular Disease 04/19/23 Letha Manzanares MD [address] [place] [address] 997095 Assigned Surgical Provider 04/23/23 11/19/23 Wilma Saba MD [address] 489484 Assigned OBGYN Provider 04/09/23 Jeannette Jean Baptiste NP [address] [place] [address] 383385 Assigned PCP 06/23/23 Cynthia Dubon MD [address] [place] [address] 892595 Assigned Heart and Vascular Provider 07/01/23 Corby Centeno MD [address] [place] [address] Assigned Surgical Provider 11/20/23 documented as of this encounter
--- OUTSIDE RECORDS SUMMARY | 2024-01-22 21:57 | XMS_ITS | Encounter Summary ---
Author Organization [place] Address [address] [facility] [place] [address] Care Team Providers Care Bioinformaticist Name Role Phone BetteShirlene MD Unavailable [phone] [facility] Primary Care Provider Burton Duncan MD Unavailable [phone] Pat Cole APRN BOAT ENGINE MECHANIC Unavailable [phone] Yohana Estes PA-C Unavailable [phone] Letha Manzanares MD Unavailable [phone] Corby Centeno MD Unavailable [phone] Cynthia [place]on MD Unavailable [phone] Letha Manzanares MD Unavailable [phone] Wilma Saba MD Unavailable [phone] Jeannette Jean Baptiste NP Unavailable [phone] Cynthia [place] MD Unavailable [phone] System, Provider Not In Primary Care Provider Un available Corby Centeno MD Unavailable [phone] Encounter Details Date Type Department Care Team (Late st Contact Info) Description 05/11/[address] [facility] [address] 5th [place] [address] Rosa Reyes CMA Social History [...] Noted Time PHQ-9 Depression Total Score: 1 11/09/20 23 7:[address] documented as of this encounter Care Teams Bioinformaticist Relationship Specialty Start Date End Date Clinic - [facility] [id number] [place] [address] PCP - General Clinic 10/03/22 07/14/23 System, Provider Not In PCP - General Clinic 07/15/23 Shirlene Amos MD [address] [place] [address] [place] [address] Dermatology 12/29/15 Burton Duncan MD [address] [place] [address] Assigned Musculoskeletal Provider 12/19/21 07/21/23 Pat Cole APRN BOAT ENGINE MECHANIC [address] [place] [address] 954305 Nurse Practitioner 01/19/22 Yohana Estes PA-C [address] [place] [address] Assigned PCP 05/08/22 06/22/23 Letha Manzanares MD [address] [place] [address] [phone] Ophthalmology 03/25/23 Corby Centeno MD [address] [place] [address] 010215 Dermatology 03/29/23 Cynthia Dubon MD [address] [place] [address] [phone] Cardiovascular Disease 04/19/23 Letha Manzanares MD 6 [place], [place] 553155 Assigned Surgical Provider 04/23/23 11/19/23 Wilma Saba MD [address] [place], [place] [phone] Assigned OBGYN Provider 04/09/23 Jeannette Jean Baptiste NP [address] 237255 Assigned PCP 06/23/23 Cynthia Dubon MD [address] [place] [address] [phone] Assigned Heart and Vascular Provider 07/01/23 Corby Centeno MD [address] [place] [address] 080125 Assigned Surgical Provider 11/20/23 documented as of this encounter
--- OUTSIDE RECORDS SUMMARY | 2024-01-22 21:57 | XMS_ITS | Encounter Summary ---
Author Organization [place] Address [address] [facility] [place] [address] Care Team Providers Care Sample Stitcher Name Role Phone BetteShirlene MD Unavailable Pat Cole APRN SOLAR PHOTOVOLTAIC ELECTRICIAN Unavailable [phone] Letha Manzanares MD Unavailable [phone] Corby Centeno MD Unavailable [phone] Cynthia [place]on MD Unavailable [phone] Letha Manzanares MD Unavailable [phone] Wilma Saba MD Unavailable [phone] Jeannette Jean Baptiste NP Unavailable [phone] Cynthia [place] MD Unavailable [phone] System, Provider Not In Primary Care [...] Total Score: 1 04/07/20 23 7:51 AM IMPORT/EXPORT CLERK documented as of this encounter Care Teams Sample Stitcher Relationship Specialty Start Date End Date System, Provider Not In PCP - General Clinic 07/15/23 Shirlene Amos MD [address] [facility] [place] [address] Dermatology 12/29/15 Pat Cole APRN SOLAR PHOTOVOLTAIC ELECTRICIAN [address] [place] [address] Nurse Practitioner 01/19/22 Letha Manzanares MD [address] [place] [address] Ophthalmology 03/25/23 Corby Centeno MD [address] [place] [address] MD Dermatology 03/29/23 Cynthia Dubon MD [address] [place] [address] 041535 Cardiovascular Disease 04/19/23 Letha Manzanares MD [address] [place] [address] Assigned Surgical Provider 04/23/23 11/19/23 Wilma Saba MD [address] [address] Assigned OBGYN Provider 04/09/23 Jeannette Jean Baptiste NP [address] [place] [address] [phone] Assigned PCP 06/23/23 Cynthia Dubon MD [address] [place] [address] 815955 Assigned Heart and Vascular Provider 07/01/23 documented as of this encounter
--- OUTSIDE RECORDS SUMMARY | 2024-01-22 21:57 | XMS_ITS | Encounter Summary ---
Author Organization [place] Address [address] [place] [address] Care Team Providers Care Practice Specialist Name Role Phone BetteShirlene MD Unavailable [phone] [facility] Primary Care Provider Burton Duncan MD Unavailable [phone] Pat Cole APRN SALES CORRESPONDENCE CLERK Unavailable [phone] Yohana Estes PA-C Unavailable [phone] Letha Manzanares MD Unavailable [phone] Corby Centeno MD Unavailable [phone] Cynthia [place] MD Unavailable [phone] Letha Manzanares MD Unavailable [phone] Wilma Saba MD Unavailable [phone] Jeannette Jean Baptiste NP Unavailable [phone] Cynthia [place] MD Unavailable [phone] System, Provider Not In Primary Care Provider Un available Corby Centeno MD Unavailable [phone] Reason for Visit * Reason Onset Date Comments Appointment 03/01/2023 Encounter Details Date Type Department Care Team (Late st Contact Info) Description 03/01/2023 Telephone [facility] Endocrinology Clinic [address] [place] [address] Ewelina Alexandra MD [address] [place] [address] Appointment Social History Tobacco Use Types [...] e-consult? Pleaseadvise. [facility] can be reached at [phone], ok to leave detailed information on voicemail. * Telephone Encounter - Luz Montgomery - 03/04/2023 8:12 AM CDT Central scheduling is unable to determine which spots are available to use for this visit, a searchof all clinics was preformed both in person and virtual, please assist [facility] in getting appt moved toa sooner at Dr Vizcarra's request. Please call [facility] at [phone]. My apologies and thank youfor your help [...] in 4 weeks, please call [facility] at [facility] at [phone] documented in this encounter Plan of Treatment Not on file documented as of this encounter Visit Diagnoses Not on filedocumented in this encounter Additional Health Concerns Assessment Noted Time PHQ-9 Depression Total Score: 2 02/23/20 10:16 AM CDT documented as of this encounter Care Teams Practice Specialist Relationship Specialty Start Date End Date Clinic - [address] [address] PCP - General Clinic 10/03/22 07/14/23 System, Provider Not In PCP - General Clinic 07/15/23 Shirlene Amos MD [address] [facility] [place] [address] Dermatology 12/29/15 Burton Duncan MD [address] [place], [place] 270841 Assigned Musculoskeletal Provider 12/19/21 07/21/23 Pat Cole APRN CNP [address] [place], [place] 362375 Nurse Practitioner 01/19/22 Yohana Estes PA-C [address] [place], [place] 772650 Assigned PCP 05/08/22 06/22/23 Letha Manzanares MD [address] [place], [place] 303235 Ophthalmology 03/25/23 Corby Centeno MD [address] [place] [address] 098955 MD Dermatology 03/29/23 Cynthia Dub[place] MD [address] [place] [address] 886915 Cardiovascular Disease 04/19/23 Letha Manzanares MD [address] [place] [address] 933985 Assigned Surgical Provider 04/23/23 11/19/23 Wilma Saba MD [address] 731994 Assigned OBGYN Provider 04/09/23 Jeannette Jean Baptiste SALES HUNTER [address] [place] [address] 438215 Assigned PCP 06/23/23 Cynthia [place] MD [address] [place] [address] 708805 Assigned Heart and Vascular Provider 07/01/23 Corby Centeno MD [address] [place] [address] Assigned Surgical Provider 11/20/23 documented as of this encounter
--- OUTSIDE RECORDS SUMMARY | 2024-01-22 21:57 | XMS_ITS | Referral Summary ---
Author Organization [place] Address [address] [facility] [place] [address] Care Team Providers Care Director Of Marketing Google Performance Ads Name Role Phone ZohaibyanelisShirlene MD Unavailable [phone] Pat Cole APRN FILM AND VIDEO GRAPHICS DESIGNER Unavailable [phone] Letha Manzanares MD Unavailable [phone] Corby Centeno MD Unavailable [phone] Cynthia Dubon MD Unavailable [phone] Wilma Saba MD Unavailable [phone] Jeannette Jean Baptiste NP Unavailable [phone] Cynthia Dubon MD Unavailable [phone] System, Provider Not In Primary Care Provider Un available Corby Centeno MD Unavailable [phone] Encounters Date Type Department Care Team Description 11/09/2023 MyC Medical Advice [facility] [address] [address] Rosalind Jacobo RN from Last 3 Months Allergies Active Allergy [...] Overview: Added automatically from request for surgery [id number] Back muscle spasm 04/28/2018 Last Assessment & [...] bef 03/19/21. 03/25/20 Pt sent results via [facility]. 03/26/20 Pt viewed results on [employer]. 03/05/21 Reminder [facility] 04/02/21 Reminder call - lm 05/06/21 Lost [...] 03/30/2023 Immunizations Name Administration Dates Next Due [id number] Novel Flu 06/23/2009 Influenza (IIV3) PF 03/11/2014,06/23/2009 [...] in an abandoned building, in an overnight group home, or couch-surfing.) Yes 02/22/2023 Are you [...] Comments Blood Pressure 96/61 07/15/2023 9:30 AM NEWSPAPER PHOTOGRAPHER Pulse 64 07/15/2023 9:30 AM NEWSPAPER PHOTOGRAPHER Temperature 36.7 ??C (98 ??F) 07/15/2023 9:42 AM NEWSPAPER PHOTOGRAPHER Respiratory Rate 18 07/15/2023 9:42 AM NEWSPAPER PHOTOGRAPHER Oxygen Saturation 98% 07/15/2023 9:42 AM NEWSPAPER PHOTOGRAPHER Inhaled Oxygen Concentration - - Weight 88 kg (194 lb 0.1 oz) 07/15/2023 6:41 AM NEWSPAPER PHOTOGRAPHER Height 166.6 cm (5' 5.59) 07/15/2023 6:41 AM CS T Body Mass Index 31.7 07/15/2023 6:41 AM NEWSPAPER PHOTOGRAPHER Plan of Treatment Not on file Medical Devices Implanted Type Area Cma Device Identifier Shelf Expiration Date Model / Serial / Lot Iud Contraceptive Device Mirena [id number] - [id number] Implanted:Qty: 1 on 07/15/2023 by Wilma Saba MD at [facility] Contraceptive Device N/A: Uterus HARI 06/29/2025 [id number] 07-28 [id number] Arthrex Ankle Fracture Management System, 2.6mm Drill Bit, Cannulated Implanted:Qty: 1 on 11/04/2021 by Sukumar Villarreal MD at [facility] Right: Ankle [id number] 2220 3 Arthrex Ankle Fracture Management System, 4mm Cannulated, Short Threaded, 40mm Implanted:Qty: 1 on 11/04/2021 by Sukumar Villarreal MD at [facility] Right: Ankle [id number] 2220 3 Arthrex Ankle Fracture Management System, 4mm Cannulated, Short Thread, 50mm Implanted:Qty: 1 on 11/04/2021 by Sukumar Villarreal MD at [facility] Right: Ankle [id number] -50 2220 3 Explanted Type Area Cma Device Identifier Shelf Expiration Date Model / Serial / Lot Arthrex Ankle Fracture Management System, Guidewire W/ Trocar Tip, Threaded, 0.062 In Explanted:Qty: 2 on 11/04/2021 by Sukumar Villarreal MD at [facility] Right: Ankle [id number] 222 3 Procedures Procedure Name Priority Date/Time Associated Diagnosis Comments COMPREHENSIVE METABOLIC PANEL STAT 04/19/2023 10:11 PM NEWSPAPER PHOTOGRAPHER HIV ANTIGEN ANTIBODY COMBO Routine 04/07/2023 9:34 AM NEWSPAPER PHOTOGRAPHER History of substance abuse (H) HEPATITIS C SCREEN REFLEX TO HCV RNA QUANT AND GENOTYPE Routine 04/07/2023 9:34 AM NEWSPAPER PHOTOGRAPHER History of substance abuse (H) LIPID REFLEX [...] (ABNORMAL) Comprehensive metabolic panel (04/19/2023 10:11 PM NEWSPAPER PHOTOGRAPHER) Sodium 138 135 - 145 mmol/L 04/19/2023 10:59 PM NEWSPAPER PHOTOGRAPHER [facility] Comment:Reference intervals for this test were updated on 02/22/2023 to more accurately reflect our healthy population. There may be differences in the flagging of prior results with similar values performed with this method. Interpretation of those prior results can be made in the context of the updated reference intervals. Potassium 4.0 3.4 - 5.3 mmol/L 04/19/2023 10:59 PM NEWSPAPER PHOTOGRAPHER [facility] Carbon Dioxide (CO2) 28 22 - 29 mmol/L 04/19/2023 10:59 PM NEWSPAPER PHOTOGRAPHER [facility] Anion Gap 7 7 - 15 mmol/L 04/19/2023 10:59 PM NEWSPAPER PHOTOGRAPHER [facility] Urea Nitrogen 16.1 6.0 - 20.0 mg/dL 04/19/2023 10:59 PM NEWSPAPER PHOTOGRAPHER [facility] Creatinine 0.89 0.51 - 0.95 mg/dL 04/19/2023 10:59 PM NEWSPAPER PHOTOGRAPHER [facility] GFR Estimate 83 >60 mL/min/1. 73m2 04/19/2023 10:59 PM NEWSPAPER PHOTOGRAPHER [facility] Calcium 9.2 8.6 - 10.0 mg/dL 04/19/2023 10:59 PM NEWSPAPER PHOTOGRAPHER [facility] Chloride 103 98 - 107 mmol/L 04/19/2023 10:59 PM NEWSPAPER PHOTOGRAPHER [facility] Glucose 105(H) 70 - 99 mg/dL 04/19/2023 10:59 PM NEWSPAPER PHOTOGRAPHER [facility] Alkaline Phosphatase 70 40 - 150 U/L 04/19/2023 10:59 PM NEWSPAPER PHOTOGRAPHER [facility] Comment:Reference intervals for this test were updated on 04/12/2023 to more accurately reflect our healthy population. There may be differences in the flagging of prior results with similar values performed with this method. Interpretation of those prior results can be made in the context of the updated reference intervals. AST 19 0 - 45 U/L 04/19/2023 10:59 PM NEWSPAPER PHOTOGRAPHER [facility] Comment:Reference intervals for this test were updated on 11/08/2022 to more accurately reflect our healthy population. There may be differences in the flagging of prior results with similar values performed with this method. Interpretation of those prior results can be made in the context of the updated reference intervals. ALT 25 0 - 50 U/L 04/19/2023 10:59 PM NEWSPAPER PHOTOGRAPHER [facility] Comment:Reference intervals for this test were updated on 11/08/2022 to more accurately reflect our healthy population. There may be differences in the flagging of prior results with similar values performed with this method. Interpretation of those prior results can be made in the context of the updated reference intervals. Protein Total 6.5 6.4 - 8.3 g/dL 04/19/2023 10:59 PM NEWSPAPER PHOTOGRAPHER [facility] Albumin 3.9 3.5 - 5.2 g/dL 04/19/2023 10:59 PM NEWSPAPER PHOTOGRAPHER [facility] Bilirubin Total <0.2 <=1.2 mg/dL 04/19/2023 10:59 PM NEWSPAPER PHOTOGRAPHER [facility] Blood BLOOD SPECIMEN / Unknown Venipuncture / Unknown 04/19/2023 10:11 PM NEWSPAPER PHOTOGRAPHER 04/19/2023 10:19 PM NEWSPAPER PHOTOGRAPHER Aida Teague MD LAB - BLOOD ORDERABL ES [facility] [address] [facility], [address] [address], [facility] [phone] * HIV Antigen Antibody Combo Artie (04/07/2023 9:34 AM NEWSPAPER PHOTOGRAPHER) HIV Antigen Antibody Combo Nonreactive Nonreactive 04/08/2023 10:32 AM NEWSPAPER PHOTOGRAPHER [facility] DO Comment:HIV-1 p24 Ag & HIV-1 /HIV-2 Ab Not Detected Blood BLOOD SPECIMEN / Unknown Venipuncture / Unknown 04/07/2023 9:34 AM NEWSPAPER PHOTOGRAPHER 04/07/2023 9:34 AM NEWSPAPER PHOTOGRAPHER Jeannette Jean Baptiste NP LAB - BLOOD ORDERABL ES [facility]ENDO [facility]Endo [address] [facility], [address] [phone] * Hepatitis C Screen Reflex to HCV RNA Quant and Genotype (04/07/2023 9:34 AM NEWSPAPER PHOTOGRAPHER) Hepatitis C Antibody Nonreactive Nonreactive 04/08/2023 9:37 AM NEWSPAPER PHOTOGRAPHER [facility] DO Blood BLOOD SPECIMEN / Unknown Venipuncture / Unknown 04/07/2023 9:34 AM NEWSPAPER PHOTOGRAPHER 04/07/2023 9:34 AM NEWSPAPER PHOTOGRAPHER Narrative [facility] - 04/08/2023 9:37 AM NEWSPAPER PHOTOGRAPHER Assay performance characteristics have not been established for newborns, infants, and children. Jeannette Jean Baptiste NP LAB - BLOOD ORDERABL ES [facility]ENDO Specialty Core/Prot/Endo [address] [facility], [address] [phone] * Lipid panel reflex to direct LDL [...] or equal to 220 mg/dL Eulalia Luna Xaviercrisjosé miguel MCCANNN FILM AND VIDEO GRAPHICS DESIGNER LAB - BLO OD ORDERABLES [facility] [place] [address] [facility], [address] [address], [facility] [phone] * Pap screen with HPV - recommended [...] SPECIALTY LABS Specimen Adequacy Satisfactory for evaluation, endocervical/nma sformation zone component present 02/24/2023 3:01 PM [...] component of this testing was completed at [facility] 02/24/2023 3:01 PM CDT SPECIALTY LABS Brushing CERVIX UTERI STRUCTURE / Unknown Non-blood Collection / Unknown 02/22/2023 11:20 AM CDT 02/22/2023 11:50 AM CDT Eulalia Henrysyedzaki SOCIAL STUDIES DEPARTMENT CHAIR FILM AND VIDEO GRAPHICS DESIGNER LAB - IRENE KER AP [facility] Specialty Lab [address] [facility], [address] [address], [facility] [phone] * HPV High Risk Types DNA Cervical (02/22/2023 11:20 AM CDT) Other HR HPV Negative Negative 02/28/2023 12:40 PM CDT [facility] HPV16 DNA Negative Negative 02/28/2023 12:40 PM CDT [facility] HPV18 DNA Negative Negative 02/28/2023 12:40 PM CDT [facility] FINAL DIAGNOSIS This patient's sample is negative for HPV DNA. This test was developed and its performance characteristics determined by the [facility], [facility] Diagnostics Laboratory. It has not been [...] CDT 02/25/2023 10:26 AM CDT Eulalia Redman SOCIAL STUDIES DEPARTMENT CHAIR FILM AND VIDEO GRAPHICS DESIGNER LAB - BLO OD ORDERABLES [facility] Molecular Diagnostics [address] [facility], [address] [place] [address], [facility] [phone] from Last 3 Months or Most Recently Relevant to Health Maintenance Care Teams Director Of Marketing Google Performance Ads Relationship Specialty Start Date End Date System, Provider Not In PCP - General Clinic 07/15/23 hSirlene Amos MD [address] [facility] [place] [address] Dermatology 12/29/15 Pat Cole APRN CNP [address] [place] [address] 686005 Nurse Practitioner 01/19/22 Letha Manzanares MD [address] [place] [address] 687225 Ophthalmology 03/25/23 Corby Centeno MD [address] [place] [address] 229145 Dermatology 03/29/23 Cynthia Dubon MD [address] [place] [address] 698305 Cardiovascular Disease 04/19/23 Wilma Saba MD [address] [address] Assigned OBGYN Provider 04/09/23 Jeannette Jean Baptiste NP [address] [phone] Assigned PCP 1/25/24 Cynthia Dubon MD 9 [place] [address] Assigned Heart and Vascular Provider 07/01/23 Corby Centeno MD 9 [place] [address] Assigned Surgical Provider 11/20/23
--- OUTSIDE RECORDS SUMMARY | 2024-01-22 21:58 | XMS_ITS | Encounter Summary ---
Author Organization [place] Address [address] [facility] [place] [address] Care Team Providers Care Solutions Sales Consultant Name Role Phone BetteShirlene MD Unavailable [facility] Primary Care Provider Heidi Gunn PA-C Unavailable [phone] Burton Duncan MD Unavailable [phone] Pat Cole APRN AUTOMOBILE RACER Unavailable [phone] Yohana Estes-C Unavailable [phone] Letha Manzanares MD Unavailable [phone] Corby Centeno MD Unavailable [phone] Cynthia Dubon MD Unavailable [phone] Letha Manzanares MD Unavailable [phone] Wilma Saba MD Unavailable [phone] Jeannette Jean Baptiste NP Unavailable [phone] Cynthia Dubon MD Unavailable [phone] System, Provider Not In Primary Care Provider Un available Corby Centeno MD Unavailable Reason for Visit * Reason Onset Date Comments Patient Request 03/01/2022 Encounter Details Date Type Department Care Team (Late st Contact Info) Description 03/01/2022 Telephone [facility] [place] [address] [facility] [place] [phone] Pat Cole APRN [facility] [address] [facility] [place] [address] Patient Request Social History Tobacco Use Types [...] Total Score: 5 05/06/20 21 7:33 AM ART OBJECTS SUPERVISOR documented as of this encounter Care Teams Solutions Sales Consultant Relationship Specialty Start Date End Date Clinic - [facility] [address] [place] [address] PCP - General Clinic 10/03/22 07/14/23 System, Provider Not In PCP - General Clinic 07/15/23 Shirlene Amos MD [address] [facility] [place] [address] Dermatology 12/29/15 Heidi Gunn PA-C [address] [place] [address] Assigned PCP 03/08/21 05/07/22 Burton Duncan MD [address] [place], [place] 888681 Assigned Musculoskeletal Provider 12/19/21 07/21/23 Pat Cole APRN CNP [address] [place] [address] 336805 Nurse Practitioner 01/19/22 Yohana Estes PA-C [address] [place] [address] Assigned PCP 05/08/22 06/22/23 Letha Manzanares MD [address] [place] [address] Ophthalmology 03/25/23 Corby Centeno MD [address] [place] [address] MD Dermatology 03/29/23 Cynthia Dubon MD [address] [place] [address] Cardiovascular Disease 04/19/23 Letha Manzanares MD [address] [place] [address] Assigned Surgical Provider 04/23/23 11/19/23 Wilma Saba MD [address] [place] [address] Assigned OBGYN Provider 04/09/23 Jeannette Jean Baptiste NP [address] [place] [address] 321725 Assigned PCP 06/23/23 Cynthia Dubon MD [address] [place] [address] 173255 Assigned Heart and Vascular Provider 07/01/23 Corby Centeno MD [address] [place] [address] 808315 Assigned Surgical Provider 11/20/23 documented as of this encounter
--- OUTSIDE RECORDS SUMMARY | 2024-01-22 21:58 | XMS_ITS | Encounter Summary ---
Author Organization [place] Address [address] [facility] [place] [address] Care Team Providers Care Electronic Court Recorder Name Role Phone BetteShirlene MD Unavailable [phone] Manju Crooks METAL BONDING WORKER CNM Unavailable [facility] Primary Care Provider Zaira Queen APRN MARKETING SERVICES VICE PRESIDENT Unavailable Franklyn Chadwick DPM Unavailable [phone] Eva Echols DO Unavailable [phone] Heidi Gunn PA-C Unavailable [phone] Sukumar Villarreal MD Unavailable [phone] Burton Duncan MD Unavailable [phone] Pat Cole APRN MARKETING SERVICES VICE PRESIDENT Unavailable [phone] Yohana EstesC Unavailable [phone] Letha Manzanares MD Unavailable [phone] Corby Centeno MD Unavailable [phone] Cynthia Dubon MD Unavailable [phone] Letha Manzanares MD Unavailable [phone] Wilma Saba MD Unavailable [phone] Jeannette Jean Baptiste NP Unavailable [phone] Cynthia Dubon MD Unavailable [phone] System, Provider Not In Primary Care Provider Un available Corby Centeno MD Unavailable [phone] Encounter Details Date Type Department Care Team (Late st Contact Info) Description 11/05/2020 [facility] [address] [place] [address] Adrianne Richards MD [address] [facility] [address] [place] [address] Social History Tobacco Use Types [...] documented as of this encounter Care Teams Electronic Court Recorder Relationship Specialty Start Date End Date Clinic - [facility] [address] [place] [address] PCP - General Clinic 10/03/22 07/14/23 System, Provider Not In PCP - General Clinic 07/15/23 Shirlene Amos MD [address] [facility] [place] [address] Dermatology 12/29/15 Manju Crooks, METAL BONDING WORKER CNM Assigned OBGYN Provider 03/21/20 09/19/21 Zaira Queen APRN MARKETING SERVICES VICE PRESIDENT [address] [place] [address] Assigned PCP 05/04/20 03/07/21 Franklyn Chadwick DPM [address] [place] [address] [place] [address] Assigned Musculoskeletal Provider 05/18/20 11/13/21 [place] [address] [place] [address] Assigned Gastroenterology Provider 11/23/20 12/20/20 Heidi Gunn PA-C [address] [place] [address] Assigned PCP 03/08/21 05/07/22 Sukumar Villarreal MD [address] [place] [address] Assigned Musculoskeletal Provider 11/14/21 12/18/21 Burton Duncan MD [address] [place] [address] Assigned Musculoskeletal Provider 12/19/21 07/21/23 Pat Cole APRN CNP [address] [place] [address] 766115 Nurse Practitioner 01/19/22 Yohana Estes PA-C [address] [place] [address] Assigned PCP 05/08/22 06/22/23 Letha Manzanares MD [address] [place] [address] [phone] Ophthalmology 03/25/23 Corby Centeno MD [address] [place] [address] 277975 Dermatology 03/29/23 Cynthia Dubon MD [address] [place] [address] 366685 Cardiovascular Disease 04/19/23 Letha Manzanares MD [address] [place] [address] 197655 Assigned Surgical Provider 04/23/23 11/19/23 Wilma Saba MD [address] 559784 Assigned OBGYN Provider 04/09/23 Jeannette Jean Baptiste NP [address] [place] [address] 903825 Assigned PCP 06/23/23 Cynthia Dubon MD 9 [place] [address] Assigned Heart and Vascular Provider 07/01/23 Corby Centeno MD 9 [place] [address] Assigned Surgical Provider 11/20/23 documented as of this encounter
--- OUTSIDE RECORDS SUMMARY | 2024-01-22 21:58 | XMS_ITS | Encounter Summary ---
Author Organization [place] Address [address] [facility] [place] [address] Care Team Providers Care Power Hair Clipper Name Role Phone BetteShirlene MD Unavailable [facility] Primary Care Provider Franklyn Chadwick DPM Unavailable [phone] Heidi Gunn PA-C Unavailable [phone] Sukumar Villarreal MD Unavailable Burton Duncan MD Unavailable [phone] Pat Cole APRN SOFTWARE QUALITY ASSURANCE SPECIALIST Unavailable [phone] Yohana Estes PA-C Unavailable [phone] Letha Manzanares MD Unavailable [phone] [place] MD Unavailable [phone] Cynthia Dubon MD Unavailable [phone] Letha Manzanares MD Unavailable [phone] Wilma Saba MD Unavailable [phone] Jeannette Jean Baptiste CHIP TESTER Unavailable [phone] Cynthia Dubon MD Unavailable [phone] System, Provider Not In Primary Care Provider Un available Corby Centeno MD Unavailable [phone] Encounter Details Date Type Department Care Team (Late st Contact Info) Description 11/11/2021 [facility] [address] [place] [address] Geraldo Lui MA Social History [...] Total Score: 5 05/06/20 21 7:33 AM CEMETERY KEEPER documented as of this encounter Care Teams Power Hair Clipper Relationship Specialty Start Date End Date [facility] [address] [place] [address] PCP - General Clinic 10/03/22 07/14/23 System, Provider Not In PCP - General Clinic 07/15/23 Shirlene Amos MD [address] [facility] [place] [address] Dermatology 12/29/15 Franklyn Chadwick DPM [address] [facility] [place] [address] Assigned Musculoskeletal Provider 05/18/20 11/13/21 Heidi Gunn PA-C [address] [place] [address] Assigned PCP 03/08/21 05/07/22 Sukumar Villarreal MD [address] [place], [place] [phone] Assigned Musculoskeletal Provider 11/14/21 12/18/21 Burton Duncan MD [address] [place] [address] 057971 Assigned Musculoskeletal Provider 12/19/21 07/21/23 Pat Cole APRN SOFTWARE QUALITY ASSURANCE SPECIALIST [address] [place] [address] 129645 Nurse Practitioner 01/19/22 Yohana Estes PA-C [address] [place] [address] 995670 Assigned PCP 05/08/22 06/22/23 Letha Manzanares MD 6 [place], [place] 961505 Ophthalmology 03/25/23 Corby Centeno MD [address] [place] [address] Dermatology 03/29/23 Cynthia Dubon MD [address] [place] [address] Cardiovascular Disease 04/19/23 Letha Manzanares MD [address] [place] [address] Assigned Surgical Provider 04/23/23 11/19/23 Wilma Saba MD [address] [place], [place] [address] [address] 359234 Assigned OBGYN Provider 04/09/23 Jeannette Jean Baptiste NP [address] [place] [address] Assigned PCP 06/23/23 Cynthia Dubon MD [address] [place] [address] 866835 Assigned Heart and Vascular Provider 07/01/23 Corby Centeno MD [address] [place] [address] 764285 Assigned Surgical Provider 11/20/23 documented as of this encounter
--- OUTSIDE RECORDS SUMMARY | 2024-01-22 21:58 | XMS_ITS | Encounter Summary ---
Author Organization [place] Address [address] [facility] [place] [address] Care Team Providers Care Call Center Receptionist Name Role Phone BetteShirlene MD Unavailable [phone] Manju Crooks SALT PLANT OPERATOR CNM Unavailable [facility] Primary Care Provider Zaira Queen APRN INFIRMARY ATTENDANT Unavailable Franklyn Chadwick DPM Unavailable +[phone] Eva Echols DO Unavailable +[phone] Heidi Gunn PA-C Unavailable +[phone] Skuumar Villarreal MD Unavailable +[phone] Burton Duncan MD Unavailable +[phone] Pat Cole APRN INFIRMARY ATTENDANT Unavailable +[phone] Yohana EstesC Unavailable +[phone] Letha Manzanares MD Unavailable +[phone] Corby Centeno MD Unavailable +[phone] Cynthia Dubon MD Unavailable [phone] Letha Manzanares MD Unavailable [phone] Wilma Saba MD Unavailable +[phone] Jeannette Jean Baptiste ANGEL Unavailable +[phone] Cynthia Dubon MD Unavailable [phone] System, Provider Not In Primary Care Provider Un available Corby Centeno MD Unavailable [phone] Reason for Referral * Diagnostic Imaging Ultrasound (Routine) - Closed Specialty Diagnoses / Procedures Referred By Sasha rice Referred To Contact Diagnoses Pelvic cramping Procedures US Pelvic Complete with Transvaginal Zaira Queen APRN INFIRMARY ATTENDANT [address] [place] [address] Referral ID Status Reason Start Date Expiration Date Visits Re quested Visits Authorized [id number] Closed 08/28/2020 08/28/2021 1 1 * (Routine) - Closed Specialty Diagnoses / Procedures Referred By Sasha rice Referred To Contact Gastroenterology Diagnoses LUQ abdominal pain Epigastric pain Zaira Queen APRN INFIRMARY ATTENDANT [address] [place] [address] Referral ID Status Reason Start Date Expiration Date Visits Re quested Visits Authorized [id number] Closed 08/27/2020 08/27/2021 1 1 Scheduling Instructions If EUS or ERCP is selected, it requires clinical review prior to scheduling. Question Answer Procedure: Upper Endoscopy Upper Endoscopy Type: EGD Upper Endoscopy Sedation: Conscious/Moderate Upper Endoscopy Reason for Procedure: LUQ/epigastric pain after eating, CT unremarkable Preferred Location: [facility] Scheduling Instructions: If you have not heard from the scheduling office within 2 business days, please call [phone]. Comments Please be aware that coverage of these services is subject to the terms and limitations of your health insurance plan. Call member services at your health plan with any benefit or coverage questions. If you have not heard from the scheduling office within 2 business days, please call [phone]. Encounter Details Date Type Department Care Team (Late st Contact Info) Description 08/26/2020 MyC Medical Advice [address] [place] [address] Zaira Queen APRN INFIRMARY ATTENDANT [address] [place] [address] LUQ abdominal pain (Primary Dx); [...] as of this encounter Plan of Treatment Scheduled Referrals [...] seen. JACE HOWARD MD Zaira Queen APRN [facility] U S ORDERABLES documented in this encounter [...] documented as of this encounter Care Teams Call Center Receptionist Relationship Specialty Start Date End Date Clinic - [address] [address] PCP - General Clinic 10/03/22 07/14/23 System, Provider Not In PCP - General Clinic 07/15/23 Shirlene Amos MD [address] [facility] [place] [address] Dermatology 12/29/15 Manju Crooks APRN CN Assigned OBGYN Provider 03/21/20 09/19/21 Zaira Queen APRN INFIRMARY ATTENDANT [address] [place] [address] Assigned PCP 05/04/20 03/07/21 Franklyn Chadwick DPM [address] [facility] [address] [place] [address] Assigned Musculoskeletal Provider 05/18/20 11/13/21 [place] [address] [place] [address] Assigned Gastroenterology Provider 11/23/20 12/20/20 Heidi Gunn PA-C [address] [place] [address] Assigned PCP 03/08/21 05/07/22 Sukumar Villarreal MD [address] [place], [place] 327292 Assigned Musculoskeletal Provider 11/14/21 12/18/21 Burton Duncan MD 4000 [place] [address] Assigned Musculoskeletal Provider 12/19/21 07/21/23 Pat Cole APRN INFIRMARY ATTENDANT 909 [place] [address] Nurse Practitioner 01/19/22 Yohana Estes PA-C [address] [place], [place] 0[address] Assigned PCP 05/08/22 06/22/23 Letha Manzanares MD 6 [place] [address] MD Ophthalmology 03/25/23 Corby Centeno MD [address] [place] [address] MD Dermatology 03/29/23 Cynthia Dubon MD [address] [place] [address] 202795 Cardiovascular Disease 04/19/23 Letha Manzanares MD [address] [place] [address] Assigned Surgical Provider 04/23/23 11/19/23 Wilma Saba MD [address] 875944 Assigned OBGYN Provider 04/09/23 Jeannette Jean Baptiste ASSISTANT COUNSEL [address] [place] [address] Assigned PCP 06/23/23 Cynthia Dubon MD [address] [place] [address] Assigned Heart and Vascular Provider 07/01/23 Corby Centeno MD [address] [place] [address] Assigned Surgical Provider 11/20/23 documented as of this encounter
--- OUTSIDE RECORDS SUMMARY | 2024-01-22 21:58 | XMS_ITS | Encounter Summary ---
Author Organization [place] Address [address] [facility] [place] [address] Care Team Providers Care Technical Publications Writer Name Role Phone BetteShirlene MD Unavailable [phone] Manju Crooks BUSINESS CONTINUITY MANAGEMENT DIRECTOR CNM Unavailable [facility] Primary Care Provider Zaira Queen APRN BUILDING MAINTENANCE ENGINEER Unavailable Franklyn Chadwick DPM Unavailable +[phone] Eva Echols DO Unavailable +[phone] Heidi Gunn PA-C Unavailable +[phone] Sukumar Villarreal MD Unavailable +[phone] Burton Duncan MD Unavailable +[phone] Pat Cole APRN BUILDING MAINTENANCE ENGINEER Unavailable +[phone] Yohana EstesC Unavailable +[phone] Letha Manzanares MD Unavailable [phone] Corby Centeno MD Unavailable [phone] Cynthia Dubon MD Unavailable [phone] Letha Manzanares MD Unavailable [phone] Wilma Saba MD Unavailable [phone] Markel Jeannette Janet ORTIZ Unavailable +[phone] Cynthia Dubon MD Unavailable [phone] System, Provider Not In Primary Care Provider Un available Corby Centeno MD Unavailable +[phone] Reason for Referral * Diagnostic Imaging CT Scan (Routine) - Closed Specialty Diagnoses / Procedures Referred By Contac t Referred To Contact Radiology. Diagnoses LUQ abdominal pain Procedures CT Abdomen Pelvis w Contrast Zaira Queen APRN BUILDING MAINTENANCE ENGINEER [address] [place] [address] Scan [address] [place] [address] Referral ID Status Reason Start Date Expiration Date Visits Re quested Visits Authorized [id number] Closed 08/25/2020 08/25/2021 1 1 Encounter Details Date Type Department Care Team (Late st Contact Info) Description 08/25/2020 MyC Medical Advice [address] [place] [phone] Zaira Queen APRN BUILDING MAINTENANCE ENGINEER [address] [place] [address] LUQ abdominal pain (Primary Dx) Social History [...] CT order for patient. Delaney Ibarra CMA ([facility]) * Telephone Encounter - Rylie Campbell - 08/25/2020 10:58 AM CDT Replied via [employer] CHUCKIE Odonnell/Deanna Escobar [facility] documented in this encounter Plan of Treatment Not on file documented as of this encounter Results * [...] study. JACE HOWARD MD Zaira Queen APRN BUILDING MAINTENANCE ENGINEER IMG C T ORDERABLES documented in this encounter Visit Diagnoses Diagnosis LUQ abdominal pain- Primary Abdominal pain, left upper quadrant LUQ abdominal pain Abdominal pain, left upper quadrant documented in this encounter Additional Health Concerns Assessment Noted Time PHQ-9 Depression Total Score: 1 08/21/19 21 7:02 AM CDT documented as of this encounter Care Teams Technical Publications Writer Relationship Specialty Start Date End Date Clinic - [facility] [address] [place] [address] PCP - General Clinic 10/03/22 07/14/23 System, Provider Not In PCP - General Clinic 07/15/23 Shirlene Amos MD [address] [place] [address] Dermatology 12/29/15 Manju Crooks APRN CNM Assigned OBGYN Provider 03/21/20 09/19/21 Zaira Queen APRN BUILDING MAINTENANCE ENGINEER [address] [place] [address] Assigned PCP 05/04/20 03/07/21 Franklyn Chadwick DPM [address] [facility] [place] [address] Assigned Musculoskeletal Provider 05/18/20 11/13/21 [place] [address] [facility] [place] [address] Assigned Gastroenterology Provider 11/23/20 12/20/20 Heidi Gunn PA-C [address] [place] [address] Assigned PCP 03/08/21 05/07/22 Sukumar Villarreal MD [address] [place] [address] Assigned Musculoskeletal Provider 11/14/21 12/18/21 Burton Duncan MD [address] [place] [address] Assigned Musculoskeletal Provider 12/19/21 07/21/23 Pat Cole APRN BUILDING MAINTENANCE ENGINEER [address] [place] [address] 302865 Nurse Practitioner 01/19/22 Yohana Estes PA-C [address] [place] [address] Assigned PCP 05/08/22 06/22/23 Letha Manzanares MD [address] [place] [address] 844655 Ophthalmology 03/25/23 Corby Centeno MD [address] [place] [address] 226625 Dermatology 03/29/23 Cynthia Dubon MD [address] [place] [address] 386025 Cardiovascular Disease 04/19/23 Letha Manzanares MD [address] [place] [address] 149995 Assigned Surgical Provider 04/23/23 11/19/23 Wilma Saba MD [address] [place], [place] [address] Assigned OBGYN Provider 04/09/23 Jeannette Jean Baptiste NP [address] 289195 Assigned PCP 06/23/23 Cynthia Dubon MD 909 [place], [place] 582475 Assigned Heart and Vascular Provider 07/01/23 Corby Centeno MD 909 [place], [place] [address] Assigned Surgical Provider 11/20/23 documented as of this encounter
--- OUTSIDE RECORDS SUMMARY | 2024-01-22 21:58 | XMS_ITS | Encounter Summary ---
Author Organization [place] Address [address] [facility] [place] [address] Care Team Providers Care Motor Mechanic Name Role Phone BetteShirlene MD Unavailable [phone] [facility] Primary Care Provider Heidi Gunn PA-C Unavailable [phone] Burton Duncan MD Unavailable [phone] Pat Cole APRN PLATE GRAINER Unavailable +[phone] Yohana Estes-C Unavailable +[phone] Letha Manzanares MD Unavailable [phone] Corby Centeno MD Unavailable [phone] Cynthia Dubon MD Unavailable [phone] Letha Manzanares MD Unavailable [phone] Wilma Saba MD Unavailable [phone] Jeannette Jean Baptiste NP Unavailable [phone] Cynthia Dubon MD Unavailable [phone] System, Provider Not In Primary Care Provider Un available Corby Centeno MD Unavailable Reason for Visit * Reason Onset Date Comments Referral 01/12/2022 Encounter Details Date Type Department Care Team (Late st Contact Info) Description 01/12/2022 Telephone [address] [place] [address] Lisa Monroe APRN PLATE GRAINER [address] [place], [place] 3[address] Referral Social History Tobacco Use Types Packs/Day [...] vm sent my chart msg. Alida Grimm Butt Presser [facility] * Telephone Encounter - Luz Damon RN - 01/18/2022 3:03 PM CDT Please assist in scheduling a new patient appointment with Pat Cole CNP at the [facility]. LASHONDA Hanson, RN Cook Cashier Food Prep [facility] * Telephone Encounter - Danielle Gil - 01/12/2022 3:22 PM CDT [facility] Call Center Phone Message May a detailed message be left on voicemail: yes Reason for Call: Pt was previously seen by Lisa Monroe in [place] in May of 2020. She is now being referred back to the pain clinic. Since she is new Pt and they are not accepting New Pt's in [place], Pt is wondering if we can make an exception and see her in [place] by Lisa. Thanks. documented in this encounter Plan of Treatment Not on file documented as of this encounter Visit Diagnoses Not on filedocumented in this encounter Additional Health Concerns Assessment Noted Time PHQ-9 Depression Total Score: 5 05/06/20 21 7:33 AM PHYSICIAN RELATIONS SPECIALIST documented as of this encounter Care Teams Motor Mechanic Relationship Specialty Start Date End Date Clinic - [facility] [address] [place] [address] PCP - General Clinic 10/03/22 07/14/23 System, Provider Not In PCP - General Clinic 07/15/23 Shirlene Amos MD [address] [facility] [address] Dermatology 12/29/15 Heidi Gunn, PA-C [address] [place] [address] Assigned PCP 03/08/21 05/07/22 Burton Duncan MD [address] [place] [address] Assigned Musculoskeletal Provider 12/19/21 07/21/23 Pat Cole APRN PLATE GRAINER [address] [place] [address] Nurse Practitioner 01/19/22 Yohana Estes PA-C [address] [place] [address] Assigned PCP 05/08/22 06/22/23 Letha Manzanares MD [address] [place] [address] Ophthalmology 03/25/23 Corby Centeno MD [address] [place] [address] MD Dermatology 03/29/23 Cynthia Dubon MD [address] [place] [address] Cardiovascular Disease 04/19/23 Letha Manzanares MD [address] [place] [address] Assigned Surgical Provider 04/23/23 11/19/23 Wilma Saba MD [address] [place] [address] 527114 Assigned OBGYN Provider 04/09/23 Jeannette Jean Baptiste NP [address] [place] [address] 942255 Assigned PCP 06/23/23 Cynthia Dubon MD [address] [place] [address] 086505 Assigned Heart and Vascular Provider 07/01/23 Corby Centeno MD 9 [place] [address] Assigned Surgical Provider 11/20/23 documented as of this encounter
--- OUTSIDE RECORDS SUMMARY | 2024-01-22 21:58 | XMS_ITS | Encounter Summary ---
Author Organization [place] Address [address] [place] [address] Care Team Providers Care Dry Cell Tester Name Role Phone Olga Sandoval MD Primary Care Provider [phone] Shirlene Amos MD Unavailable [phone] Pat Mayorga PA-C Unavailable +[phone] [place] [address] Primary Care Provider Heidi GunnC Primary Care Provider + [phone] Heidi Gunn-C Unavailable [phone] Manju Crooks APRN CNM Unavailable [facility] Care Provider Zaira Queen APRN MUSIC EXECUTIVE Unavailable Franklyn Chadwick DPM Unavailable +[phone] Eva Echols DO Unavailable +[phone] Heidi Gunn PA-C Unavailable [phone] Sukumar Villarreal MD Unavailable +[phone] Burton Duncan MD Unavailable +[phone] Pat Cole APRN MUSIC EXECUTIVE Unavailable +[phone] Yohana Estes PA-C Unavailable [phone] Letha Manzanares MD Unavailable +[phone] Corby Centeno MD Unavailable +[phone] Cynthia Dubon MD Unavailable +[phone] Letha Manzanares MD Unavailable [phone] Wilma Saba MD Unavailable +[phone] Jeannette Jean Baptiste NP Unavailable +[phone] Cynthia Dubon MD Unavailable [phone] System, Provider Not In Primary Care Provider Un available Corby Centeno MD Unavailable +[phone] Reason for Visit * Reason Onset Date Comments Forms 08/07/2018 Encounter Details Date Type Department Care Team (Late st Contact Info) Description 08/07/[address] [place] [address] [place] [address] [place] [address] [place] [address] [id number] Forms Social History Tobacco Use Types Packs/Day [...] clinic location was the form placed at?: [facility] - [phone] Where the form was placed: 's Box What number is listed as a contact on the form?: [phone] Additional comments: form faxed to Dr Christian. Please sign and fax back Call taken on 08/07/2018 at 10:36 AM by Shirley Benoit documented in this encounter Plan of Treatment Not on file documented as of this encounter Visit Diagnoses Not on filedocumented in this encounter Additional Health Concerns Assessment Noted Time PHQ-9 Depression Total Score: 4 04/13/20 16 7:37 AM MATERIAL CREW SUPERVISOR documented as of this encounter Care Teams Dry Cell Tester Relationship Specialty Start Date End Date Olga Sandoval MD [address] [place] [address] PCP - General Family Practice 06/26/14 06/14/19 [facility] [address] [place] [address] PCP - General 06/15/19 06/19/19 Heidi Gunn PA-C [address] [place] [address] PCP - General Physician Light Rail Transit Operator - Medical 06/20/19 04/29/20 [facility] [address] [place] [address] PCP - General Clinic 10/03/22 07/14/23 System, Provider Not In PCP - General Clinic 07/15/23 Shirlene Amos MD [address] [facility] [place] [id number] Dermatology 12/29/15 Pat Mayorga PA-C 9 [facility] [place] [address] Assigned PCP 07/02/18 06/23/19 Heidi Gunn PA-C [address] [facility] [facility] [id number] Assigned PCP 06/24/19 05/03/20 Manju Crooks, HOSPICE CONSULTANT CNM Assigned OBGYN Provider 03/21/20 09/19/21 Zaira Queen HOSPICE CONSULTANT MUSIC EXECUTIVE [address] [place] [address] Assigned PCP 05/04/20 03/07/21 Franklyn Chadwick DPM 9 [facility] [place] [address] Assigned Musculoskeletal Provider 05/18/20 11/13/21 [place] [address] [place] [address] Assigned Gastroenterology Provider 11/23/20 12/20/20 Heidi Gunn PA-C [address] [facility] [address] Assigned PCP 03/08/21 05/07/22 Sukumar Villarreal MD [address] [place] [address] [place] [address] Assigned Musculoskeletal Provider 11/14/21 12/18/21 Burton Duncan MD [address] [place] [address] Assigned Musculoskeletal Provider 12/19/21 07/21/23 Pat Cole APRN MUSIC EXECUTIVE [address] [place] [address] 120815 Nurse Practitioner 01/19/22 Yohana Estes PA-C [address] [place] [address] 688660 Assigned PCP 05/08/22 06/22/23 Letha Manzanares MD [address] [place] [address] 214135 Ophthalmology 03/25/23 Corby Centeno MD [address] [place] [address] 808495 Dermatology 03/29/23 Cynthia Dubon MD [address] [place] [address] 195955 Cardiovascular Disease 04/19/23 Letha Manzanares MD [address] [place] [address] 690005 Assigned Surgical Provider 04/23/23 11/19/23 Wilma Saba MD [address] [place] [address] Assigned OBGYN Provider 04/09/23 Jeannette Jean Baptiste NP [address] [address] Assigned PCP 06/23/23 Cynthia Dubon MD [address] [place] [address] 069765 Assigned Heart and Vascular Provider 07/01/23 Corby Centeno MD [address] [place] [address] 762545 Assigned Surgical Provider 11/20/23 documented as of this encounter
--- OUTSIDE RECORDS SUMMARY | 2024-01-22 21:58 | XMS_ITS | Encounter Summary ---
Author Organization [place] Address [address] [facility] [place] [address] Care Team Providers Care Boiler Cleaner Name Role Phone Bette Shirlene Floyd MD Unavailable Manju Crooks APRN CNM Unavailable Unava [facility] acute hospital Primary Care Provider Franklyn Chadwick DPM Unavailable [phone] Heidi GunnC Unavailable +[phone] Sukumar Villarreal MD Unavailable +[phone] Burton Duncan MD Unavailable +[phone] Pat Cole APRN TOOL LIAISON Unavailable +[phone] Yohana Estes PA-C Unavailable +[phone] Letha Manzanares MD Unavailable [phone] Corby Centeno MD Unavailable [phone] Cynthia Dubon MD Unavailable [phone] Letha Manzanares MD Unavailable [phone] Wilma Saba MD Unavailable [phone] Jeannette Jean Baptiste NP Unavailable Cynthia Dubon MD Unavailable [phone] System, Provider Not In Primary Care Provider Un available Corby Centeno MD Unavailable Encounter Details Date Type Department Care Team (Late st Contact Info) Description 05/06/2021 [facility] [address] [place] [address] Dora Odom, CLEANING MAID Social History Tobacco Use Types Packs/Day Years [...] COVID-19? No / Unsure 05/05/2021 7:55 AM HEEL EDGE INKER MACHINE documented as of this encounter Plan of Treatment Not on file documented as of this encounter Visit Diagnoses Not on filedocumented in this encounter Additional Health Concerns Assessment Noted Time PHQ-9 Depression Total Score: 5 05/06/20 21 7:33 AM HEEL EDGE INKER MACHINE documented as of this encounter Care Teams Boiler Cleaner Relationship Specialty Start Date End Date Clinic - [facility] [address] [place], [place] [id number] PCP - General Clinic 10/03/22 07/14/23 System, Provider Not In PCP - General Clinic 07/15/23 Shirlene Amos MD [address] [facility] [place] [id number] Dermatology 12/29/15 Manju Crooks TOWER LOADER OPERATOR CNM Assigned OBGYN Provider 03/21/20 09/19/21 Franklyn Chadwick DPM [address] [facility] [place] [address] Assigned Musculoskeletal Provider 05/18/20 11/13/21 Heidi Gunn PA-C [address] [place] [address] Assigned PCP 03/08/21 05/07/22 Sukumar Villarreal MD [address] [place] [address] Assigned Musculoskeletal Provider 11/14/21 12/18/21 Burton Duncan MD [address] [place] [address] 800211 Assigned Musculoskeletal Provider 12/19/21 07/21/23 Pat Cole, KATHLEEN TOOL LIAISON [address] [place] [address] 536485 Nurse Practitioner 01/19/22 Yohana Estes PA-C [address] [place], [place] 1470[address] Assigned PCP 05/08/22 06/22/23 Letha Manzanares MD [address] [place], [place] 436325 Ophthalmology 03/25/23 Corby Centeno MD [address] [place] [address] MD Dermatology 03/29/23 Cynthia Dubon MD [address] [place] [address] Cardiovascular Disease 04/19/23 Letha Manzanares MD [address] [place] [address] Assigned Surgical Provider 04/23/23 11/19/23 Wilma Saba MD [address] [place] [address] Assigned OBGYN Provider 04/09/23 Jeannette Jean Baptiste NP [address] [place] [address] Assigned PCP 06/23/23 Cynthia Dubon MD [address] [place] [address] Assigned Heart and Vascular Provider 07/01/23 Corby Centeno MD [address] [place] [address] Assigned Surgical Provider 11/20/23 documented as of this encounter
--- OUTSIDE RECORDS SUMMARY | 2024-01-22 21:58 | XMS_ITS | Encounter Summary ---
Author Organization [place] Address [address] [facility] [address] Care Team Providers Care Skating Rink Manager Name Role Phone BetteShirlene MD Unavailable [phone] Manju Crooks ASSESSOR CNM Unavailable [facility] Provider Zaira Queen APRN TAIL BOARD WORKER Unavailable Franklyn Chadwick DPM Unavailable +[phone] Eva Echols DO Unavailable +[phone] Heidi Gunn PA-C Unavailable +[phone] Sukumar Villarreal MD Unavailable +[phone] Burton Duncan MD Unavailable +[phone] Pat Cole APRN TAIL BOARD WORKER Unavailable +[phone] Yohana EstesC Unavailable +[phone] Letha Manzanares MD Unavailable +[phone] Corby Centeno MD Unavailable +[phone] Cynthia Dubon MD Unavailable Letha Manzanares MD Unavailable [phone] Wilma Saba MD Unavailable +[phone] Markel Jeannettedarian Gonzales NP Unavailable +[phone] Cynthia Dubon MD Unavailable [phone] System, Provider Not In Primary Care Provider Un available Corby Centeno MD Unavailable [phone] Encounter Details Date Type Department Care Team (Late st Contact Info) Description 09/05/2020 [facility] [address] [place] [address] Zaira Queen, ASSESSOR TAIL BOARD WORKER [address] [place] [address] Social History Tobacco Use Types [...] documented as of this encounter Care Teams Skating Rink Manager Relationship Specialty Start Date End Date Clinic - [facility] [address] [place] [address] PCP - General Clinic 10/03/22 07/14/23 System, Provider Not In PCP - General Clinic 07/15/23 Shirlene Amos MD [address] [facility] [place] [address] Dermatology 12/29/15 Manju Crooks APRN CNM Assigned OBGYN Provider 03/21/20 09/19/21 Zaira Queen APRN TAIL BOARD WORKER [address] [place] [address] Assigned PCP 05/04/20 03/07/21 Franklyn Chadwick DPM [address] [place] [address] [place] [address] Assigned Musculoskeletal Provider 05/18/20 11/13/21 [place] [address] [place] [address] 6[address] Assigned Gastroenterology Provider 11/23/20 12/20/20 Heidi Gunn PA-C [address] [place] [address] Assigned PCP 03/08/21 05/07/22 Sukumar Villarreal MD [address] [place] [address] [place] [address] Assigned Musculoskeletal Provider 11/14/21 12/18/21 Burton Duncan MD [address] [place] [address] Assigned Musculoskeletal Provider 12/19/21 07/21/23 Pat Cole APRN TAIL BOARD WORKER [address] [place] [address] Nurse Practitioner 01/19/22 Yohana Estes PA-C [address] [place] [address] Assigned PCP 05/08/22 06/22/23 Letha Manzanares MD [address] [place] [address] [phone] Ophthalmology 03/25/23 Corby Centeno MD [address] [place] [address] 382295 Dermatology 03/29/23 Cynthia Dubon MD [address] [place] [address] 534375 Cardiovascular Disease 04/19/23 Letha Manzanares MD [address] [place] [address] [phone] Assigned Surgical Provider 04/23/23 11/19/23 Wilma Saba MD [address] [place] [address] [phone] Assigned OBGYN Provider 04/09/23 Jeannette Jean Baptiste NP [address] [place] [address] 667075 Assigned PCP 06/23/23 Cynthia Dubon MD 909 [place] [address] Assigned Heart and Vascular Provider 07/01/23 Corby Centeno MD 9 [place] [address] Assigned Surgical Provider 11/20/23 documented as of this encounter
--- OUTSIDE RECORDS SUMMARY | 2024-01-22 21:58 | XMS_ITS | Encounter Summary ---
Author Organization [place] Address [address] [facility] [place] [address] Care Team Providers Care Unionmelt Operator Name Role Phone BetteShirlene MD Unavailable [phone] [facility] Primary Care Provider Heidi Gunn PA-C Unavailable +[phone] Burton Duncan MD Unavailable +[phone] Pat Cole APRN BROWNELL OPERATOR Unavailable +[phone] Yohana Estes-C Unavailable +[phone] Letha Manzanares MD Unavailable [phone] Corby Centeno MD Unavailable +[phone] Cynthia Dubno MD Unavailable +[phone] Letha Manzanares MD Unavailable +[phone] Wilma Saba MD Unavailable +[phone] Jeannette Jean Baptiste NP Unavailable +[phone] Cynthia Dubon MD Unavailable [phone] System, Provider Not In Primary Care Provider Un available Corby Centeno MD Unavailable Encounter Details Date Type Department Care Team (Late st Contact Info) Description 02/15/2022 [facility] [address] [place] [phone] [place] Daily Social History Tobacco Use Types [...] Total Score: 5 05/06/20 21 7:33 AM TREE AND SHRUB TECHNICIAN documented as of this encounter Care Teams Unionmelt Operator Relationship Specialty Start Date End Date Clinic - [facility] [address] [place] [address] PCP - General Clinic 10/03/22 07/14/23 System, Provider Not In PCP - General Clinic 07/15/23 Shirlene Amos MD [address] [facility] [place] [address] Dermatology 12/29/15 Heidi Gunn, PA-C [address] [place] [address] Assigned PCP 03/08/21 05/07/22 Burton Duncan MD [address] [place] [address] 926951 Assigned Musculoskeletal Provider 12/19/21 07/21/23 Pat Cole APRN CNP [address] [place] [address] 502255 Nurse Practitioner 01/19/22 Yohana Estes PA-C [address] [place] [address] 518890 Assigned PCP 05/08/22 06/22/23 Letha Manzanares MD [address] [place] [address] [phone] Ophthalmology 03/25/23 Corby Centeno MD [address] [place] [address] 807015 Dermatology 03/29/23 Cynthia Dubon MD [address] [place] [address] 802275 Cardiovascular Disease 04/19/23 Letha Manzanares MD [address] [place] [address] 613335 Assigned Surgical Provider 04/23/23 11/19/23 Wilma Saba MD [address] [place] [address] 108774 Assigned OBGYN Provider 04/09/23 Jeannette Jean Baptiste, GLAZIER SUPERVISOR [address] [address] Assigned PCP 06/23/23 Cynthia Dubon MD 9 [place], [place] 585175 Assigned Heart and Vascular Provider 07/01/23 Corby Centeno MD 9 [place], [place] 262075 Assigned Surgical Provider 11/20/23 documented as of this encounter
--- OUTSIDE RECORDS SUMMARY | 2024-01-22 21:58 | XMS_ITS | Encounter Summary ---
Author Organization [place] Address [address] [facility] [address] Care Team Providers Care Jar Filler Name Role Phone BetteShirlene MD Unavailable [facility] Primary Care Provider Franklyn Chadwick DPM Unavailable [phone] Heidi Gunn PA-C Unavailable +[phone] Sukumar Villarreal MD Unavailable Burton Duncan MD Unavailable +[phone] Pat Cole APRN REPTILE KEEPER Unavailable [phone] Yohana Estes PA-C Unavailable +[phone] Letha Manzanares MD Unavailable [phone] Corby Centeno MD Unavailable +[phone] Cynthia Dubon MD Unavailable [phone] Letha Manzanares MD Unavailable [phone] Wilma Saba MD Unavailable +[phone] Jeannette Jean Baptiste LAUNDRY ROOM ATTENDANT Unavailable [phone] Cynthia Dubon MD Unavailable [phone] System, Provider Not In Primary Care Provider Un available Corby Centeno MD Unavailable [phone] Encounter Details Date Type Department Care Team (Late st Contact Info) Description 11/11/2021 [facility] [address] [place] [address] Geraldo Lui MA Social History [...] Total Score: 5 05/06/20 21 7:33 AM CHEMICAL EDUCATOR documented as of this encounter Care Teams Jar Filler Relationship Specialty Start Date End Date [facility] [address] [place] [address] PCP - General Clinic 10/03/22 07/14/23 System, Provider Not In PCP - General Clinic 07/15/23 Shirlene Amos MD [address] [facility] [place] [address] Dermatology 12/29/15 Franklyn Chadwick DPM [address] [place] [address] Assigned Musculoskeletal Provider 05/18/20 11/13/21 Heidi Gunn PA-C [address] [place] [address] Assigned PCP 03/08/21 05/07/22 Sukumar Villarreal MD [address] [place], [place] 651842 Assigned Musculoskeletal Provider 11/14/21 12/18/21 Burton Duncan MD [address] [place] [address] 512141 Assigned Musculoskeletal Provider 12/19/21 07/21/23 Pat Cole APRN REPTILE KEEPER [address] [place] [address] 873925 Nurse Practitioner 01/19/22 Yohana Estes PA-C [address] [place] [address] 817610 Assigned PCP 05/08/22 06/22/23 Letha Manzanares MD 6 [place], [place] 202905 Ophthalmology 03/25/23 Corby Centeno MD [address] [place] [address] Dermatology 03/29/23 Cynthia Dubon MD [address] [place] [address] 22950 Cardiovascular Disease 04/19/23 Letha Manzanares MD [address] [place] [place] [address] Assigned Surgical Provider 04/23/23 11/19/23 Wilma Saba MD [address] [place], [place] [address] [address] 055184 Assigned OBGYN Provider 04/09/23 Jeannette Jean Baptiste NP [address] [place] [address] Assigned PCP 06/23/23 Cynthia Dubon MD [address] [place] [address] 094925 Assigned Heart and Vascular Provider 07/01/23 Corby Centeno MD [address] [place] [address] 401015 Assigned Surgical Provider 11/20/23 documented as of this encounter
--- OUTSIDE RECORDS SUMMARY | 2024-01-22 21:58 | XMS_ITS | Encounter Summary ---
Author Organization [place] Address [address] [place] [address] Care Team Providers Care Public Health Aides Teacher Name Role Phone BetteShirlene MD Unavailable [facility] Primary Care Provider Heidi Gunn PA-C Unavailable [phone] Burton Duncan MD Unavailable [phone] Pat Cole APRN GOLD LEAF LABORER Unavailable [phone] Yohana Estes-C Unavailable [phone] Letha Manzanares MD Unavailable [phone] Corby Centeno MD Unavailable [phone] Cynthia Dubon MD Unavailable [phone] Letha Manzanares MD Unavailable [phone] Wilma Saba MD Unavailable +[phone] Jeannette Jean Baptiste NP Unavailable +[phone] Cynthia Dubon MD Unavailable [phone] System, Provider Not In Primary Care Provider Un available Corby Centeno MD Unavailable [phone] Encounter Details Date Type Department Care Team (Late st Contact Info) Description 01/18/2022 [facility] [address] [place] [phone] Kristi Stone Social History Tobacco Use Types [...] Total Score: 5 05/06/20 21 7:33 AM CORRECTIONS SPECIALIST documented as of this encounter Care Teams Public Health Aides Teacher Relationship Specialty Start Date End Date Clinic - [facility] [address] [place] [address] PCP - General Clinic 10/03/22 07/14/23 System, Provider Not In PCP - General Clinic 07/15/23 Shirlene Amos MD [address] [facility] [place] [address] Dermatology 12/29/15 Heidi Gunn, PA-C [address] [facility] [address] Assigned PCP 03/08/21 05/07/22 Burton Duncan MD [address] [place] [address] 795041 Assigned Musculoskeletal Provider 12/19/21 07/21/23 Pat Cole APRN GOLD LEAF LABORER [address] [place] [address] 147615 Nurse Practitioner 01/19/22 Yohana Estes PA-C [address] [place] [address] 283430 Assigned PCP 05/08/22 06/22/23 Letha Manzanares MD [address] [place] [address] Ophthalmology 03/25/23 Corby Centeno MD [address] [place] [address] Dermatology 03/29/23 Cynthia Dubon MD [address] [place] [address] 542425 Cardiovascular Disease 04/19/23 Letha Manzanares MD [address] [place] [address] 960135 Assigned Surgical Provider 04/23/23 11/19/23 Wilma Saba MD [address] [place] [address] 881044 Assigned OBGYN Provider 04/09/23 Jeannette Jean Baptiste NP [address] [address] Assigned PCP 06/23/23 Cynthia Dubon MD 9 [place], [place] 801805 Assigned Heart and Vascular Provider 07/01/23 Corby Centeno MD 9 [place] [address] Assigned Surgical Provider 11/20/23 documented as of this encounter
--- OUTSIDE RECORDS SUMMARY | 2024-01-22 21:58 | XMS_ITS | Encounter Summary ---
Author Organization [place] Address [address] [place] [address] Care Team Providers Care Quality Review Specialist Name Role Phone Olga Sandoval MD Primary Care Provider [phone] Shirlene Amos MD Unavailable +[phone] Pat Mayorga PA-C Unavailable +[phone] Pat Mayorga PA-C Unavailable +[phone] [facility] Primary Care Provider Heidi Gunn-C Primary Care Provider + [phone] Heidi Gunn-C Unavailable [phone] Manju Crooks SPECIAL SERVICE OFFICER CNM Unavailable [facility] Primary Care Provider Zaira Queen APRN LOCATION DIRECTOR Unavailable Franklyn Chadwick DPM Unavailable [phone] Eva Echols DO Unavailable +[phone] Heidi Gunn Edis BENITEZ Unavailable +[phone] Sukumar Villarreal MD Unavailable +[phone] Burton Duncan MD Unavailable +[phone] Pat Cole APRN LOCATION DIRECTOR Unavailable Yohana Estes PA-C Unavailable +[phone] Letha Manzanares MD Unavailable +[phone] Corby Centeno MD Unavailable [phone] Cynthia Dubon MD Unavailable +[phone] Letha Manzanares MD Unavailable [phone] Wilma Saba MD Unavailable +[phone] Jeannette Jean Baptiste NP Unavailable +[phone] Cynthia Dubon MD Unavailable [phone] System, Provider Not In Primary Care Provider Un available Corby Centeno MD Unavailable [phone] Reason for Visit * Reason Onset Date Comments Patient Request for Note/Letter 07/06/2018 Encounter Details Date Type Department Care Team (Late st Contact Info) Description 07/06/[address] [place] [address] [place] [address] [place] [address] [address] Patient Request for Note/Letter Social [...] encounter Miscellaneous Notes * Telephone Encounter - Shaw, Melanie - 07/07/2018 8:34 AM CST Updated work letter and faxed to [phone] scooter Junior [place] JOURNALIST * Telephone Encounter - Yuliana Elizabeth - 07/06/2018 5:42 PM CST Pt calling for a note stating that it is ok for her to return to work with no restrictions starting07/07/18. Please fax this to [phone] attyessy junior. Please call pt with any questions. thanks [place] JOURNALIST documented in this encounter Plan of Treatment Not on file documented as of this encounter Visit Diagnoses Not on filedocumented in this encounter Additional Health Concerns Assessment Noted Time PHQ-9 Depression Total Score: 4 04/13/20 16 7:37 AM ONLINE JOURNALIST documented as of this encounter Care Teams Quality Review Specialist Relationship Specialty Start Date End Date Olga Sandoval MD [address] [place] [address] PCP - General Family Practice 06/26/14 06/14/19 Pat Mayorga PA-C [address] [facility] [facility] [address] [facility] [place] [address] PCP - Assigned PCP 07/02/18 08/01/18 [facility] [address] [place] [address] PCP - General 06/15/19 06/19/19 Heidi Gunn PA-C [address] [place] [address] PCP - General Physician Steel Turner - Medical 06/20/19 04/29/20 [facility] [address] [place] [address] PCP - General Clinic 10/03/22 07/14/23 System, Provider Not In PCP - General Clinic 07/15/23 Shirlene Amos MD [address] [place] [address] Dermatology 12/29/15 Pat Mayorga PA-C [address] [facility] [address] [place] 175551 Assigned PCP 07/02/18 06/23/19 Heidi Gunn PA-C [address] [place] [address] Assigned PCP 06/24/19 05/03/20 Manju Crooks SPECIAL SERVICE OFFICER CNM Assigned OBGYN Provider 03/21/20 09/19/21 Zaira Queen APRN LOCATION DIRECTOR [address] [place] [address] Assigned PCP 05/04/20 03/07/21 Franklyn Chadwick DPM [address] [facility] [place] [address] Assigned Musculoskeletal Provider 05/18/20 11/13/21 [place] [address] [place] [address] Assigned Gastroenterology Provider 11/23/20 12/20/20 Heidi Gunn PA-C [address] [place] [address] Assigned PCP 03/08/21 05/07/22 Sukumar Villarreal MD [address] [place] [address] Assigned Musculoskeletal Provider 11/14/21 12/18/21 Burton Duncan MD [address] [place] [address] 161531 Assigned Musculoskeletal Provider 12/19/21 07/21/23 Pat Cole APRN LOCATION DIRECTOR [address] [place] [address] 384495 Nurse Practitioner 01/19/22 Yohana Estes PA-C [address] [place] [address] 835930 Assigned PCP 05/08/22 06/22/23 Letha Manzanares MD [address] [place] [address] 841265 Ophthalmology 03/25/23 Corby Centeno MD [address] [place] [address] 726345 Dermatology 03/29/23 Cynthia Dubon MD [address] [place] [address] 655555 Cardiovascular Disease 04/19/23 Letha Manzanares MD [address] [place] [address] [place] [address] Assigned Surgical Provider 04/23/23 11/19/23 Wilma Saba MD [address] [place], [place] 406724 Assigned OBGYN Provider 04/09/23 Jeannette Jean Baptiste NP [address] [place] [address] 695195 Assigned PCP 06/23/23 Cynthia Dubon MD [address] [place] [address] 304315 Assigned Heart and Vascular Provider 07/01/23 Corby Centeno MD [address] [place] [address] 169955 Assigned Surgical Provider 11/20/23 documented as of this encounter
--- OUTSIDE RECORDS SUMMARY | 2024-01-22 21:58 | XMS_ITS | Encounter Summary ---
Author Organization [place] Address [address] [facility] [place] [address] Care Team Providers Care Conveyor Line Bakery Worker Name Role Phone BetteShirlene MD Unavailable [phone] Heidi GunnC Primary Care Provider [phone] Heidi Gunn PA-C Unavailable +[phone] Manju Crooks WORK ORDER DETAILER CNM Unavailable [facility] Primary Care Provider Zaira Queen APRN BAKED AND GRAPHITE INSPECTOR Unavailable Franklyn Chadwick DPM Unavailable +[phone] Eva Echols DO Unavailable +[phone] Heidi Gunn PA-C Unavailable +[phone] Sukumar Villarreal MD Unavailable +[phone] Burton Duncan MD Unavailable +[phone] Pat Cole APRN BAKED AND GRAPHITE INSPECTOR Unavailable +[phone] Yohana Estes PA-C Unavailable +[phone] Letha Manzanares MD Unavailable +[phone] Corby Centeno MD Unavailable Cynthia Dubon MD Unavailable +[phone] Letha Manzanares MD Unavailable [phone] Wilma Saba MD Unavailable +[phone] Jeannette Jean Baptiste NP Unavailable +[phone] Cynthia Dubon MD Unavailable [phone] System, Provider Not In Primary Care Provider Un available Corby Centeno MD Unavailable [phone] Reason for Visit * Reason Onset Date Comments Outreach 07/06/2019 [facility] Cervical/PAP ATT 1 Encounter Details Date Type Department Care Team (Late st Contact Info) Description 07/06/2019 Telephone [facility] [address] [place] [address] Heidi Gunn PA-C [address] [place] [address] Outreach ([facility] Cervical/PAP ATT 1) [...] Attempt 1 Message on voicemail Comments: Outreach Correctional Officer CS ER RIGGER documented in this encounter Plan of Treatment Not on file documented as of this encounter Visit Diagnoses Not on filedocumented in this encounter Additional Health Concerns Assessment Noted Time PHQ-9 Depression Total Score: 4 04/13/20 16 7:37 AM MASTER RIGGER documented as of this encounter Care Teams Conveyor Line Bakery Worker Relationship Specialty Start Date End Date Heidi Gunn PA-C [address] [facility] [place] [address] PCP - General Physician Check Processor - Medical 06/20/19 04/29/20 [facility] [address] [facility] [place] [address] PCP - General Clinic 10/03/22 07/14/23 System, Provider Not In PCP - General Clinic 07/15/23 Shirlene Amos MD [facility] [facility] [place] [address] Dermatology 12/29/15 Heidi Gunn, EMMANUEL [address] [place] [address] Assigned PCP 06/24/19 05/03/20 Manju Crooks APRN CNM Assigned OBGYN Provider 03/21/20 09/19/21 Zaira Queen APRN BAKED AND GRAPHITE INSPECTOR [address] [facility] [place] [address] Assigned PCP 05/04/20 03/07/21 Franklyn Chadwick DPM [address] [place] [address] [place] [address] Assigned Musculoskeletal Provider 05/18/20 11/13/21 [place] [address] [place], [place] [address] Assigned Gastroenterology Provider 11/23/20 12/20/20 Heidi Gunn PA-C [address] [place] [address] Assigned PCP 03/08/21 05/07/22 Sukumar Villarreal MD [address] [place], [place] 131412 Assigned Musculoskeletal Provider 11/14/21 12/18/21 Burton Duncan MD [address] [place] [address] 367821 Assigned Musculoskeletal Provider 12/19/21 07/21/23 Pat Cole APRN CNP [address] [place] [address] 147405 Nurse Practitioner 01/19/22 Yohana Estes PA-C [address] [place] [address] 467090 Assigned PCP 05/08/22 06/22/23 Letha Manzanares MD 6 [place], [place] 544275 MD Anthony 03/25/23 Corby Centeno MD [address] [place] [address] [phone] Dermatology 03/29/23 Cynthia Dubon MD [address] [place] [address] 293865 Cardiovascular Disease 04/19/23 Letha Manzanares MD [address] [place] [address] Assigned Surgical Provider 04/23/23 11/19/23 Wilma Saba MD [address] [place], [place] 759014 Assigned OBGYN Provider 04/09/23 Jeannette Jean Baptiste NP [address] [place] [address] Assigned PCP 06/23/23 Cynthia Dubon MD [address] [place] [address] 019435 Assigned Heart and Vascular Provider 07/01/23 Corby Centeno MD [address] [place] [address] Assigned Surgical Provider 11/20/23 documented as of this encounter
== END 2024-01-22 22:06 | disposition home or self-care (01) ==
LOC: ED 21:55
PROVIDERS: Emergency Provider Family Medicine; PCP Family Medicine
DX: M79.671 Pain in right foot (principal); Y93.6A Activity, physical games generally associated with school recess, summer camp and children
CPT/HCPCS: 73630; 99283; 99284

== ENCOUNTER 2024-03-30 14:08 | Outpatient (CLI) | payer MEDICAID, SELFPAY ==
--- OUTSIDE RECORDS SUMMARY | 2024-04-03 03:45 | XMS_ITS | Encounter Summary ---
Author Organization [facility] Address [address] [place] [address] Care Team Providers Care Panama Hat Smearer Name Role Phone Unavailable Primary Care Provider Unavailabl e Reason for Visit * Reason Onset Date Comments Order Request 01/26/2024 Encounter Details Date Type Department Care Team (Latest Contact Info) Description 01/26/2024 Clinical Communication Division of Endocrinology in [place], [place] [address] [place] [phone] Minerva Mast M.D. [address] [place] [phone] Order Request Social History Tobacco Use Types Packs/Day Years Used Date Smoking Tobacco: Former Cigarettes Passive Smoke Exposure: Current Smokeless Tobacco: Never [facility] Utilities Answer Date Recorded In the past 12 months has th e electric, gas, oil, or water [facility] threatened to shut off services in your [...] your living situation today? 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
--- OUTSIDE RECORDS SUMMARY | 2024-04-03 03:45 | XMS_ITS | Clinical Summary ---
Author Organization [place] Address [address] [facility] [place] [address] Care Team Providers Care Sandblasting Supervisor Name Role Phone Shirlene Amos MD Unavailable [phone] Pat Cole APRN MANAGER GROCERY Unavailable [phone] Corby Centeno MD Unavailable [phone] Cynthia Dubon MD Unavailable [phone] Wilma Saba MD Unavailable [phone] Jeannette Jean Baptiste NP Unavailable [phone] Cynthia Dubon MD Unavailable [phone] System, Provider Not In Primary Care Provider Un available Corby Centeno MD Unavailable [phone] Allergies Active Allergy Reactions Criticality Noted Date [...] (10/22/2021): Added automatically from request for surgery [id number] Back muscle spasm 04/28/2018 Assessment & Plan (04/28/2018 9:48 AM TUBE CUTTER OPERATOR): Acute muscle spasm likely triggered by underlying [...] bef 03/19/21. 03/25/20 Pt sent results via [employer]. 03/26/20 Pt viewed results on [employer]. 03/05/21 Reminder [employer] 04/02/21 Reminder call - lm 05/06/21 Lost [...] 03/30/2023 Immunizations Name Administration Dates Next Due [id number] Novel Flu 06/23/2009 Influenza (IIV3) PF 03/11/2014,06/23/2009 [...] PM CDT Legal Sex Female 4:01 AM TUBE CUTTER OPERATOR Gender Identity Female 09/29/2020 3:49 PM CDT Sexual Orientation Straight 09/29/2020 3: 49 PM CDT Last Filed Vital Signs Vital Sign Reading Time Taken Comments Blood Pressure 96/61 07/15/2023 9:30 AM TUBE CUTTER OPERATOR Pulse 64 07/15/2023 9:30 AM TUBE CUTTER OPERATOR Temperature 36.7 ??C (98 ??F) 07/15/2023 9:42 AM TUBE CUTTER OPERATOR Respiratory Rate 18 07/15/2023 9:42 AM TUBE CUTTER OPERATOR Oxygen Saturation 98% 07/15/2023 9:42 AM TUBE CUTTER OPERATOR Inhaled Oxygen Concentration - - Weight 88 kg (194 lb 0.1 oz) 07/15/2023 6:41 AM TUBE CUTTER OPERATOR Height 166.6 cm (5' 5.59) 07/15/2023 6:41 AM CS T Body Mass Index 31.7 07/15/2023 6:41 AM TUBE CUTTER OPERATOR Plan of Treatment Health Maintenance Due Date [...] this topic Medical Devices Implanted Type Area Gasoline Tractor Operator Device Identifier Shelf Expiration Date Model / Serial / Lot Iud Contraceptive Device Mirena [id number] - [id number] Implanted:Qty: 1 on 07/15/2023 by Wilma Saba MD at [facility] Contraceptive Device N/A: Uterus HARI 06/29/2025 [id number] / [id number] Arthrex Ankle Fracture Management System, 2.6mm Drill Bit, Cannulated Implanted:Qty: 1 on 11/04/2021 by Sukumar Villarreal MD at [facility] Right: Ankle [id number] 2220 3 Arthrex Ankle Fracture Management System, 4mm Cannulated, Short Threaded, 40mm Implanted:Qty: 1 on 11/04/2021 by Sukumar Villarreal MD at [facility] Right: Ankle [id number] 40 2220 3 Arthrex Ankle Fracture Management System, 4mm Cannulated, Short Thread, 50mm Implanted:Qty: 1 on 11/04/2021 by Sukumar Villarreal MD at [facility] Right: Ankle [id number] -50 2220 3 Explanted Type Area Gasoline Tractor Operator Device Identifier Shelf Expiration Date Model / Serial / Lot Arthrex Ankle Fracture Management System, Guidewire W/ Trocar Tip, Threaded, 0.062 In Explanted:Qty: 2 on 11/04/2021 by Sukumar Villarreal MD at [facility] Right: Ankle [id number] 2220 3 Procedures Procedure Name Priority Date/Time Associated Diagnosis Comments COMPREHENSIVE METABOLIC PANEL STAT 04/19/2023 10:11 PM TUBE CUTTER OPERATOR HIV ANTIGEN ANTIBODY COMBO Routine 04/07/2023 9:34 AM TUBE CUTTER OPERATOR History of substance abuse (H) HEPATITIS C SCREEN REFLEX TO HCV RNA QUANT AND GENOTYPE Routine 04/07/2023 9:34 AM TUBE CUTTER OPERATOR History of substance abuse (H) LIPID [...] (ABNORMAL) Comprehensive metabolic panel (04/19/2023 10:11 PM TUBE CUTTER OPERATOR) Sodium 138 135 - 145 mmol/L 04/19/2023 10:59 PM TUBE CUTTER OPERATOR [facility] Comment:Reference intervals for this test were updated on 02/22/2023 to more accurately reflect our healthy population. There may be differences in the flagging of prior results with similar values performed with this method. Interpretation of those prior results can be made in the context of the updated reference intervals. Potassium 4.0 3.4 - 5.3 mmol/L 04/19/2023 10:59 PM TUBE CUTTER OPERATOR [facility] Carbon Dioxide (CO2) 28 22 - 29 mmol/L 04/19/2023 10:59 PM TUBE CUTTER OPERATOR [facility] Anion Gap 7 7 - 15 mmol/L 04/19/2023 10:59 PM TUBE CUTTER OPERATOR [facility] Urea Nitrogen 16.1 6.0 - 20.0 mg/dL 04/19/2023 10:59 PM TUBE CUTTER OPERATOR [facility] Creatinine 0.89 0.51 - 0.95 mg/dL 04/19/2023 10:59 PM TUBE CUTTER OPERATOR [facility] GFR Estimate 83 >60 mL/min/1. 73m2 04/19/2023 10:59 PM TUBE CUTTER OPERATOR [facility] Calcium 9.2 8.6 - 10.0 mg/dL 04/19/2023 10:59 PM TUBE CUTTER OPERATOR [facility] Chloride 103 98 - 107 mmol/L 04/19/2023 10:59 PM TUBE CUTTER OPERATOR [facility] Glucose 105(H) 70 - 99 mg/dL 04/19/2023 10:59 PM TUBE CUTTER OPERATOR [facility] Alkaline Phosphatase 70 40 - 150 U/L 04/19/2023 10:59 PM TUBE CUTTER OPERATOR [facility] Comment:Reference intervals for this test were updated on 04/12/2023 to more accurately reflect our healthy population. There may be differences in the flagging of prior results with similar values performed with this method. Interpretation of those prior results can be made in the context of the updated reference intervals. AST 19 0 - 45 U/L 04/19/2023 10:59 PM TUBE CUTTER OPERATOR [facility] Comment:Reference intervals for this test were updated on 11/08/2022 to more accurately reflect our healthy population. There may be differences in the flagging of prior results with similar values performed with this method. Interpretation of those prior results can be made in the context of the updated reference intervals. ALT 25 0 - 50 U/L 04/19/2023 10:59 PM TUBE CUTTER OPERATOR [facility] Comment:Reference intervals for this test were updated on 11/08/2022 to more accurately reflect our healthy population. There may be differences in the flagging of prior results with similar values performed with this method. Interpretation of those prior results can be made in the context of the updated reference intervals. Protein Total 6.5 6.4 - 8.3 g/dL 04/19/2023 10:59 PM TUBE CUTTER OPERATOR [facility] Albumin 3.9 3.5 - 5.2 g/dL 04/19/2023 10:59 PM TUBE CUTTER OPERATOR [facility] Bilirubin Total <0.2 <=1.2 mg/dL 04/19/2023 10:59 PM TUBE CUTTER OPERATOR [facility] Blood BLOOD SPECIMEN / Unknown Venipuncture / Unknown 04/19/2023 10:11 PM TUBE CUTTER OPERATOR 04/19/2023 10:19 PM TUBE CUTTER OPERATOR Aida Teague MD LAB - BLOOD ORDERABLES Final Res ult [facility] [address] [facility], [address] [phone], [facility] [phone] * HIV Antigen Antibody Combo [place] (04/07/2023 9:34 AM TUBE CUTTER OPERATOR) HIV Antigen Antibody Combo Nonreactive Nonreactive 04/08/2023 10:32 AM TUBE CUTTER OPERATOR SPECIALTY CORE/PROT/EN DO Comment:HIV-1 p24 Ag & HIV-1 /HIV-2 Ab Not Detected Blood BLOOD SPECIMEN / Unknown Venipuncture / Unknown 04/07/2023 9:34 AM TUBE CUTTER OPERATOR 04/07/2023 9:34 AM TUBE CUTTER OPERATOR Jeannette Jean Baptiste NP LAB - BLOOD ORDERABLES Final Result SPECIALTY CORE/PROT/ENDO Specialty Core/Prot/Endo [address] [facility], Room [address] [phone] * Hepatitis C Screen Reflex to HCV RNA Quant and Genotype (04/07/2023 9:34 AM TUBE CUTTER OPERATOR) Hepatitis C Antibody Nonreactive Nonreactive 04/08/2023 9:37 AM TUBE CUTTER OPERATOR SPECIALTY CORE/PROT/EN DO Blood BLOOD SPECIMEN / Unknown Venipuncture / Unknown 04/07/2023 9:34 AM TUBE CUTTER OPERATOR 04/07/2023 9:34 AM TUBE CUTTER OPERATOR Narrative [facility] SPECIALTY CORE/PROT/ENDO - 04/08/2023 9:37 AM TUBE CUTTER OPERATOR Assay performance characteristics have not been established for newborns, infants, and children. us Jeannette Jean Baptiste NP LAB - BLOOD ORDERABLES Final Result [facility] SPECIALTY CORE/PROT/ENDO [facility] Specialty Core/Prot/Endo [address] [facility] [address] Building, [place] [address] [address], [facility] [phone] * Lipid panel reflex to direct LDL [...] or equal to 220 mg/dL Eulalia Redman HAND PRINTED CIRCUIT BOARD ASSEMBLER MANAGER GROCERY LAB - BLOOD ORDER EMMETT Final Result [facility] [address] [facility], [address] [place] [address], [facility] [phone] * Pap screen with HPV - recommended [...] component of this testing was completed at [facility] 02/24/2023 3:01 PM CDT SPECIALTY LABS Brushing CERVIX UTERI STRUCTURE / Unknown Non-blood Collection / Unknown 02/22/2023 11:20 AM CDT 02/22/2023 11:50 AM CDT Eulalia Henryjosé miguel WANG MANAGER GROCERY LAB - BEAKER AP F inal Result SPECIALTY LABS Specialty Lab [address] [facility] J Building, [address] [address], [facility] [phone] * HPV High Risk Types DNA Cervical (02/22/2023 11:20 AM CDT) Other HR HPV Negative Negative 02/28/2023 12:40 PM CDT [facility]NOST[facility] HPV16 DNA Negative Negative 02/28/2023 12:40 PM CDT [facility] DIAGNOSTICS HPV18 DNA Negative Negative 02/28/2023 12:40 PM CDT MOLECULAR DIAGNOSTICS FINAL DIAGNOSIS This patient's sample is negative for HPV DNA. This test was developed and its performance characteristics determined by the [facility] [place] [facility], Molecular Diagnostics Laboratory. It has [...] LAB - BLOOD ORDER EMMETT Final Result Drop Messages DIAGNOSTICS [facility] Molecular Diagnostics [address] [facility] J Building, [address] [place] [address], [facility] [phone] from Last 3 Months or Most Recently Relevant to Health Maintenance Insurance [facility] CLAIMS MANAGEMENT Care Teams Sandblasting Supervisor Relationship Specialty Start Date End Date System, Provider Not In PCP - General Clinic 07/15/23 Shirlene Amos MD [address] [facility] [place] [address] Dermatology 12/29/15 Pat Cole APRN MANAGER GROCERY [address] [place] [address] Nurse Practitioner 01/19/22 Corby Centeno MD [address] [place] [address] Dermatology 03/29/23 Cynthia Dubon MD [address] [place] [address] Cardiovascular Disease 04/19/23 Wilma Saba MD [address] [place] [address] [address] 595534 Assigned OBGYN Provider 04/09/23 Jeannette Jean Baptiste NP [address] [place] [address] [phone] Assigned PCP 06/23/23 Cynthia Dubon MD [address] [place] [address] [id number] Assigned Heart and Vascular Provider 07/01/23 Corby Centeno MD [address] [place] [address] 167095 Assigned Surgical Provider 11/20/23
--- OUTSIDE RECORDS SUMMARY | 2024-04-03 03:45 | XMS_ITS | Clinical Summary ---
Author Organization [facility] Address [address] [place] [address] Care Team Providers Care Creel Operator Name Role Phone Unavailable Primary Care Provider Unavailabl e Source Comments Patient records contain information from all sites at [facility]. For routine questions regarding patient records, call [phone] during business hours, M-F 8:00 AM - 5:00 PM Central Time. Record requests for emergency care only can be directed to [phone] at any time.[facility] Allergies Active Allergy Reactions Criticality Noted Date Comments [place] Other (see comments) Low 06/13/2023 Cyclobenzaprine Other [...] above Assessment & Plan (06/23/2023 10:10 AM OPERATIONS ASSISTANT): Natalie presents for above, she was 31 [...] months with labs and visit (Pro or DEEP TISSUE MASSAGE THERAPIST) Encounters Date Type Department Care Team Description 02/01/2024 Clinical Communication Division of Endocrinology in [place], [place] [address] [place] [address] Minerva Mast M.D. 01/26/2024 Clinical Communication Division of Endocrinology in [place], [place] [address] [place] [address] Minerva Mast M.D. Order Request 01/23/2024 Refill Division of Endocrinology in [place], [place] [address] [place] [phone] Minerva Mast M.D. Med Refill from Last 3 Months Social History Tobacco Use Types Packs/Day Years Used Date Smoking Tobacco: Former Cigarettes Passive Smoke Exposure: Current Smokeless Tobacco: Never Tobacco Cessation:Counseling Given: Not Answered [facility] Utilities Answer Date Recorded In the past 12 months has [employer], gas, oil, or water [employer] threatened to shut off services in your [...] your living situation today? I have a [facility] place to live 08/24/2023 Comments Unknown Sex and Gender Information Value Date Recorded Sex Assigned at Female 08/24/2023 7:50 PM CDT Legal Sex Female 2:17 PM OPERATIONS ASSISTANT Gender Identity Female 08/24/2023 7:50 PM CDT Sexual Orientation Straight 08/24/2023 7: 50 PM CDT Last Filed Vital Signs Vital Sign Reading Time Taken Comments Blood Pressure 116/77 06/23/2023 8:33 AM OPERATIONS ASSISTANT Pulse 76 06/23/2023 8:33 AM OPERATIONS ASSISTANT Temperature - - Respiratory Rate - - Oxygen Saturation - - Inhaled Oxygen Concentration - - Weight 85.5 kg (188 lb 7.9 oz) 06/23/2023 8:33 A M OPERATIONS ASSISTANT Height 166.8 cm (5' 5.67) 06/23/2023 8:33 AM CS T Body Mass Index 30.73 06/23/2023 8:33 AM OPERATIONS ASSISTANT Plan of Treatment Health Maintenance Due Date [...] this topic Medical Devices Implanted Type Area Histology Manager Device Identifier Shelf Expiration Date Model / Serial / Lot Gi Other GI Other Stomach Description:06/23/23. PS (Phe t). Patient could not recall approx. date of implantation. Hardware E.G. Pins/Screws/Graham s Hardware e.g. pins/screws/graham s Right: Ankle Description:06/23/23 PS (Phet ). Patient said these screws were implanted approx. 3 years ago, so approx. 2020. Intrauterine Device Intrauterine Device Uterus Insurance [facility]
--- OUTSIDE RECORDS SUMMARY | 2024-04-03 03:45 | XMS_ITS | Encounter Summary ---
Author Organization [facility] Address [address] [place] [address] Care Team Providers Care Registered Dental Hygienist Name Role Phone Unavailable Primary Care Provider Unavailabl e Reason for Visit * Reason Comments Med Refill Encounter Details Date Type Department Care Team ([facility] st Contact Info) Description 01/23/2024 Refill Division of Endocrinology in [place], [place] [address] [place] [phone] Minerva Mast M.D. [address] [place] [phone] Med Refill Social History Tobacco Use Types Packs/Day Years Used Date Smoking Tobacco: Former Cigarettes Passive Smoke Exposure: Current Smokeless Tobacco: Never [facility] Utilities Answer [...] your living situation today? I have a [facility] place to live 08/24/2023 Comments Unknown Sex and Gender Information Value Date Recorded Sex Assigned at Female 08/24/2023 7:50 PM CDT Legal Sex Female 2:17 PM TECHNICAL DOCUMENTATION SPECIALIST Gender Identity Female 08/24/2023 7:50 PM CDT Sexual Orientation Straight 08/24/2023 7: 50 PM CDT documented as of this encounter Plan of Treatment Not on file documented as of this encounter Visit Diagnoses Diagnosis Hyperthyroidism documented in this encounter
--- OUTSIDE RECORDS SUMMARY | 2024-04-03 03:45 | XMS_ITS | Encounter Summary ---
Author Organization [facility] Address [address] [place] [address] Care Team Providers Care Epic Anesthesia Analyst Name Role Phone Unavailable Primary Care Provider Unavailabl e Reason for Referral * Outpatient (Routine) - Authorized Specialty Diagnoses / Procedures Referred By Sasha t Referred To Contact Endocrinology Diagnoses Hyperthyroidism Minerva Mast M.D. [address] [place] [phone] Phone: tel: fax: [facility] Referral ID Status Reason Start Date Expiration Date V isits Requested Visits Authorized [id number] Authorized 02/01/2024 08/02/2025 1 1 Scheduling Instructions Can be seen by Dr. Mast or ANNY Encounter Details Date Type Department Care Team (Latest Contact Info) Description 02/01/2024 Clinical Communication Division of Endocrinology in [place], [place] [address] [place] [phone] Minerva Mast M.D. [address] [place] [phone] Social History Tobacco Use Types Packs/Day Years Used Date Smoking Tobacco: Former Cigarettes Passive Smoke Exposure: Current Smokeless Tobacco: Never [facility] Utilities Answer Date Recorded In the [...] your living situation today? I have a [facility] place to live 08/24/2023 Comments Unknown Sex and Gender Information Value Date Recorded Sex Assigned at Female 08/24/2023 7:50 PM CDT Legal Sex Female 2:17 PM LOOM CLEANER Gender Identity Female 08/24/2023 7:50 PM CDT [...]
--- OUTSIDE RECORDS SUMMARY | 2024-04-03 03:45 | XMS_ITS ---
Author Organization [facility] Address [address] [place] [address] Care Team Providers Care Corrections Corporal Name Role Phone Unavailable Unavailable Unavailable Surgery Details Not on file Complications Check Surgery Details section. Procedure Estimated Blood Loss Check Surgery Details section. Procedure Findings Check Surgery Details section. Procedure Specimens Taken Check Surgery Details section.
--- OUTSIDE RECORDS SUMMARY | 2024-04-03 03:45 | XMS_ITS | Referral Summary ---
Author Organization [facility] Address [address] [place] [address] Care Team Providers Care Prosthetic Makeup Designer Name Role Phone Unavailable Primary Care Provider Unavailabl e Source Comments Patient records contain information from all sites at [facility]. For routine questions regarding patient records, call [phone] during business hours, M-F 8:00 AM - 5:00 PM Central Time. Record requests for emergency care only can be directed to [phone] at any time.[facility] Encounters Date Type Department Care Team Description 02/01/2024 Clinical Communication Division of Endocrinology in [place], [place] [address] [place] [address] Minerva Mast M.D. 01/26/2024 Clinical Communication Division of Endocrinology in [place], [place] [address] [place] [address] Minerva Mast M.D. Order Request 01/23/2024 Refill Division of Endocrinology in [place], [place] [address] [place] [address] Minerva Mast M.D. Med Refill from Last 3 Months Allergies Active Allergy Reactions Criticality Noted Date Comments [place] Other (see comments) Low 06/13/2023 Cyclobenzaprine Other [...] above Assessment & Plan (06/23/2023 10:10 AM METAL CANS SUPERVISOR): Natalie presents for above, she was 31 [...] months with labs and visit (Pro or CLAY [place]) Social History Tobacco Use Types Packs/Day Years Used Date Smoking Tobacco: Former Cigarettes Passive Smoke Exposure: Current Smokeless Tobacco: Never Tobacco Cessation:Counseling Given: Not Answered [facility] Utilities Answer Date Recorded In the past 12 months has [place] [employer], gas, oil, or water dINK threatened to shut off services in your [...] your living situation today? I have a [facility] place to live 08/24/2023 Comments Unknown Sex and Gender Information Value Date Recorded Sex Assigned at Female 08/24/2023 7:50 PM CDT Legal Sex Female 2:17 PM METAL CANS SUPERVISOR Gender Identity Female 08/24/2023 7:50 PM CDT Sexual Orientation Straight 08/24/2023 7: 50 PM CDT Last Filed Vital Signs Vital Sign Reading Time Taken Comments Blood Pressure 116/77 06/23/2023 8:33 AM METAL CANS SUPERVISOR Pulse 76 06/23/2023 8:33 AM METAL CANS SUPERVISOR Temperature - - Respiratory Rate - - Oxygen Saturation - - Inhaled Oxygen Concentration - - Weight 85.5 kg (188 lb 7.9 oz) 06/23/2023 8:33 A M METAL CANS SUPERVISOR Height 166.8 cm (5' 5.67) 06/23/2023 8:33 AM CS T Body Mass Index 30.73 06/23/2023 8:33 AM METAL CANS SUPERVISOR Plan of Treatment Not on file Medical Devices Implanted Type Area Therapy Assistant Device Identifier Shelf Expiration Date Model / Serial / Lot Gi Other GI Other Stomach Description:06/23/23. PS (Phe t). Patient could not recall approx. date of implantation. Hardware E.G. Pins/Screws/Graham s Hardware e.g. pins/screws/graham s Right: Ankle Description:06/23/23 PS (Phet ). Patient said these screws were implanted approx. 3 years ago, so approx. 2020. Intrauterine Device Intrauterine Device Uterus Insurance [facility]
--- OUTSIDE RECORDS SUMMARY | 2024-04-03 03:46 | XMS_ITS | Encounter Summary ---
Author Organization [place] Address [address] [facility] [place] [address] Care Team Providers Care Jitterbug Operator Name Role Phone BetteShirlene MD Unavailable [phone] [facility] Primary Care Provider Burton Duncan MD Unavailable [phone] Pat Cole APRN DIRECTOR TOXICOLOGY Unavailable [phone] Yohana Estes PA-C Unavailable [phone] Letha Manzanares MD Unavailable Unavailable Corby Centeno MD Unavailable [phone] Cynthia Dubon MD Unavailable [phone] Letha Manzanares MD Unavailable Unavailable Wilma Saba MD Unavailable [phone] Jeannette Jean Baptiste NP Unavailable [phone] Cynthia Dubon MD Unavailable [phone] System, Provider Not In Primary Care Provider Un available Corby Centeno MD Unavailable [phone] Reason for Visit * Reason Onset Date Comments Appointment 03/01/2023 Encounter Details Date Type Department Care Team (Late st Contact Info) Description 03/01/2023 Telephone [facility] [address] [place] [address] Ewelina Alexandra MD [address] [place] [address] [id number] Appointment Social History Tobacco Use Types Packs/Day [...] PM CDT Legal Sex Female 4:01 AM SHUTTLE VENEERING SUPERVISOR Gender Identity Female 09/29/2020 3:49 PM CDT [...] e-consult? Pleaseadvise. [facility] can be reached at [phone], ok to leave detailed information on voicemail. * Telephone Encounter - Luz Montgomery - 03/04/2023 8:12 AM CDT Central scheduling is unable to determine which spots are available to use for this visit, a searchof all clinics was preformed both in person and virtual, please assist MTC in getting appt moved toa sooner at Dr Vizcarra's request. Please call [facility] at [phone]. My apologies and thank youfor your help [...] Katty Melissa - 03/01/2023 2:50 PM CDT [facility] Phone Message May a detailed message be left on voicemail: yes Reason for Call: Other: Pt being referred for Thyroid nodule, no appt available in 4 weeks, please call [facility] at [facility] at [phone] documented in this encounter Plan of Treatment Not on file documented as of this encounter Visit Diagnoses Not on filedocumented in this encounter Additional Health Concerns Assessment Noted Time PHQ-9 Depression Total Score: 2 02/23/20 10:16 AM CDT documented as of this encounter Care Teams Jitterbug Operator Relationship Specialty Start Date End Date Clinic - [facility] [id number] [place] [address] PCP - General Clinic 10/03/22 07/14/23 System, Provider Not In PCP - General Clinic 07/15/23 Shirlene Amos MD [address] [place] [address] Dermatology 12/29/15 Burton Duncan MD [address] [place], [place] 413421 Assigned Musculoskeletal Provider 12/19/21 07/21/23 Pat Cole APRN DIRECTOR TOXICOLOGY [address] [place] [address] Nurse Practitioner 01/19/22 Yohana Estes PA-C [address] [place], [place] 989830 Assigned PCP 05/08/22 06/22/23 Letha Manzanares MD [address] [place] [address] Ophthalmology 03/25/23 02/15/24 Corby Centeno MD [address] [place] [address] MD Dermatology 03/29/23 Cynthia Dubon MD [address] [place] [address] Cardiovascular Disease 04/19/23 Letha Manzanares MD Assigned Surgical Provider 04/23/23 11/19/23 Wilma Saba MD [address] [id number] Assigned OBGYN Provider 04/09/23 Jeannette Jean Baptiste NP [address] [place] [address] 839205 Assigned PCP 06/23/23 Cynthia Dubon MD [address] [place] [address] 018785 Assigned Heart and Vascular Provider 07/01/23 Corby Centeno MD [address] [place] [address] 106425 Assigned Surgical Provider 11/20/23 documented as of this encounter
--- OUTSIDE RECORDS SUMMARY | 2024-04-03 03:46 | XMS_ITS | Encounter Summary ---
Author Organization [place] Address [address] [facility] [place] [address] Care Team Providers Care Stopper Grinder Name Role Phone BetteShirlene MD Unavailable [phone] Manju Crooks DITCH CLEANER CNM Unavailable [facility] Primary Care Provider Zaira Queen APRN PLAYROOM ATTENDANT Unavailable Franklyn Chadwick DPM Unavailable [phone] Eva Echols DO Unavailable [phone] Heidi Gunn PA-C Unavailable [phone] Sukumar Villarreal MD Unavailable [phone] Burton Duncan MD Unavailable [phone] Pat Cole APRN PLAYROOM ATTENDANT Unavailable [phone] Yohana Estes-C Unavailable [phone] Letha Manzanares MD Unavailable Unavailable Corby Centeno MD Unavailable [phone] Cynthia Dubon MD Unavailable [phone] Letha Manzanares MD Unavailable Unavailable Wilma Saba MD Unavailable [phone] Jeannette Jean Baptiste NP Unavailable [phone] Cynthia Dubon MD Unavailable [phone] System, Provider Not In Primary Care Provider Un available Corby Centeno MD Unavailable [phone] Encounter Details Date Type Department Care Team (Late st Contact Info) Description 11/05/2020 [facility] [place] [address] [place] [address] 4th [place] [address] Adrianne Richards MD [address] [place] [address] [address] [place] [address] Social History Tobacco Use Types [...] PM CDT 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 Gender Identity Female 09/29/2020 3:49 PM [...] documented as of this encounter Care Teams Stopper Grinder Relationship Specialty Start Date End Date Clinic - [facility] [address] [place] [address] PCP - General Clinic 10/03/22 07/14/23 System, Provider Not In PCP - General Clinic 07/15/23 Shirlene Amos MD [address] [facility] [place] [address] Dermatology 12/29/15 Manju Crooks, DITCH CLEANER CNM Assigned OBGYN Provider 03/21/20 09/19/21 Zaira Queen, DITCH CLEANER PLAYROOM ATTENDANT [address] [place] [address] Assigned PCP 05/04/20 03/07/21 Franklyn Chadwick DPM [address] [place] [address] Assigned Musculoskeletal Provider 05/18/20 11/13/21 [place] [address] [place] [address] Assigned Gastroenterology Provider 11/23/20 12/20/20 Heidi Gunn PAGuillermoC [address] [place] [address] Assigned PCP 03/08/21 05/07/22 Sukumar Villarreal MD [address] [place] [address] Assigned Musculoskeletal Provider 11/14/21 12/18/21 Burton Duncan MD [address] [place] [address] Assigned Musculoskeletal Provider 12/19/21 07/21/23 Pat Cole APRN CNP [address] [place] [address] Nurse Practitioner 01/19/22 Yohana Estes PA-C [address] [place] [address] Assigned PCP 05/08/22 06/22/23 Letha Manzanares MD [address] [place] [address] [facility] 03/25/23 02/15/24 Corby Centeno MD [address] [place] [address] Dermatology 03/29/23 Cynthia Dubon MD [address] [place] [address] 948465 Cardiovascular Disease 04/19/23 Letha Manzanares MD Assigned Surgical Provider 04/23/23 11/19/23 Wilma Saba MD [address] [facility] [address] [place], [place] 338154 Assigned OBGYN Provider 04/09/23 Jeannette Jean Baptiste, ANGEL [address] [place] [address] 197485 Assigned PCP 06/23/23 Cynthia Dubon MD [address] [place] [address] 467525 Assigned Heart and Vascular Provider 07/01/23 Corby Centeno MD [address] [place] [address] Assigned Surgical Provider 11/20/23 documented as of this encounter
--- OUTSIDE RECORDS SUMMARY | 2024-04-03 03:46 | XMS_ITS | Encounter Summary ---
Author Organization [place] Address [address] [facility] [place] [address] Care Team Providers Care Reporting Developer Name Role Phone Shirlene Amos MD Unavailable [phone] [facility] Primary Care Provider Burton Duncan MD Unavailable [phone] Pat Cole APRN INJECTOR ASSEMBLER Unavailable [phone] Yohana Estes PA-C Unavailable [phone] Letha Manzanares MD Unavailable Unavailable Corby Centeno MD Unavailable [phone] Cynthia Dubon MD Unavailable [phone] Letha Manzanares MD Unavailable Unavailable Wilma Saba MD Unavailable [phone] Jeannette Jean Baptiste NP Unavailable [phone] Cynthia Dubon MD Unavailable [phone] System, Provider Not In Primary Care Provider Un available Corby Centeno MD Unavailable [phone] Encounter Details Date Type Department Care Team (Late st Contact Info) Description 04/29/2023 MyC Medical Advice [facility] [address] 3rd Floor,[address] [place] [facility] [address] [place] [address] Luz Alva CMA Social History [...] PM CDT Legal Sex Female 4:01 AM 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 Gender Identity Female 09/29/2020 3:49 PM CDT Sexual Orientation Straight 09/29/2020 3: 49 PM CDT documented as of this encounter Plan of Treatment Not on file documented as of this encounter Visit Diagnoses Not on filedocumented in this encounter Additional Health Concerns Assessment Noted Time PHQ-9 Depression Total Score: 1 04/07/20 23 7:51 AM CUSHION FORMER documented as of this encounter Care Teams Reporting Developer Relationship Specialty Start Date End Date [facility] [address] [place] [address] PCP - General Clinic 10/03/22 07/14/23 System, Provider Not In PCP - General Clinic 07/15/23 Shirlene Amos MD [address] [facility] [place] [address] Dermatology 12/29/15 Burton Duncan MD [address] [place] [address] Assigned Musculoskeletal Provider 12/19/21 07/21/23 Pat Cole APRN CNP [address] [place] [address] Nurse Practitioner 01/19/22 Yohana Estes PA-C [address] [place] [address] Assigned PCP 05/08/22 06/22/23 Letha Manzanares MD [address] [place] [address] Ophthalmology 03/25/23 02/15/24 Corby Centeno MD [address] [place] [address] 535185 Dermatology 03/29/23 Cynthia Dubon MD [address] [place] [address] 678915 Cardiovascular Disease 04/19/23 Letha Manzanares MD Assigned Surgical Provider 04/23/23 11/19/23 Wilma Saba MD [address] [facility] [address] [place] [address] Assigned OBGYN Provider 04/09/23 Jeannette Jean Baptiste NP [address] [address] Assigned PCP 06/23/23 Cynthia Dubon MD [address] [place] [address] Assigned Heart and Vascular Provider 07/01/23 Corby Centeno MD [address] [place] [address] [id number] Assigned Surgical Provider 11/20/23 documented as of this encounter
--- OUTSIDE RECORDS SUMMARY | 2024-04-03 03:46 | XMS_ITS | Encounter Summary ---
Author Organization [place] Address [address] [facility] [place] [address] Care Team Providers Care Malted Milk Mixer Name Role Phone ZohaibyanelisShirlene MD Unavailable [phone] [facility] Primary Care Provider Heidi Gunn PA-C Unavailable [phone] Burton Duncan MD Unavailable [phone] Pat Cole APRN DIRECTOR STRATEGIC PLANNING Unavailable [phone] Yohana Estes-C Unavailable [phone] Letha Manzanares MD Unavailable Unavailable Corby Centeno MD Unavailable [phone] Cynthia Dubon MD Unavailable [phone] Letha Manzanares MD Unavailable Unavailable Wilma Saba MD Unavailable [phone] Jeannette Jean Baptiste NP Unavailable [phone] Cynthia Dubon MD Unavailable [phone] System, Provider Not In Primary Care Provider Un available Corby Centeno MD Unavailable [phone] Reason for Visit * Reason Onset Date Comments Referral 01/12/2022 Encounter Details Date Type Department Care Team (Late st Contact Info) Description 01/12/2022 Telephone M [address] [place] [address] MabelLisa medinaKATHLEEN DIRECTOR STRATEGIC PLANNING [address] [place] [address] [place] [address] Referral Social History Tobacco Use [...] PM CDT Legal Sex Female 4:01 AM PROGRAM MGR Gender Identity Female 09/29/2020 3:49 PM CDT [...] vm sent my chart msg. Alida Grimm Lang Path Therapist [facility] [place] * Telephone Encounter - Luz Damon RN - 01/18/2022 3:03 PM CDT Please assist in scheduling a new patient appointment with Pat Cole CNP at the [facility]. LASHONDA Hanson, RN Tip Fixer [facility] [place] * Telephone Encounter - Danielle Gil - 01/12/2022 3:22 PM CDT [facility] Call Center Phone Message May a detailed message be left on voicemail: yes Reason for Call: Pt was previously seen by Lisa Monroe in [place] in May of 2020. She is now being referred back to the pain clinic. Since she is new Pt and they are not accepting New Pt's in [place], Pt is wondering if we can make an exception and see her in [place] by Lisa. Thanks. documented in this encounter Plan of Treatment Not on file documented as of this encounter Visit Diagnoses Not on filedocumented in this encounter Additional Health Concerns Assessment Noted Time PHQ-9 Depression Total Score: 5 05/06/20 21 7:33 AM PROGRAM MGR documented as of this encounter Care Teams Malted Milk Mixer Relationship Specialty Start Date End Date Clinic - [facility] [address] [place] [address] PCP - General Clinic 10/03/22 07/14/23 System, Provider Not In PCP - General Clinic 07/15/23 Shirlene Amos MD [address] [place] [place] [address] Dermatology 12/29/15 Heidi Gunn, PA-C [address] [place] [address] Assigned PCP 03/08/21 05/07/22 Burton Duncan MD [address] [place] [address] Assigned Musculoskeletal Provider 12/19/21 07/21/23 Pat Cole APRN DIRECTOR STRATEGIC PLANNING [address] [place] [address] Nurse Practitioner 01/19/22 Yohana Estes PA-C [address] [place] [address] Assigned PCP 05/08/22 06/22/23 Letha Manzanares MD [address] [place] [address] MD Anthony 03/25/23 02/15/24 Corby Centeno MD [address] [place] [address] 642835 MD Dermatology 03/29/23 Cynthia Dubon MD [address] [place] [address] 535495 Cardiovascular Disease 04/19/23 Letha Manzanares MD Assigned Surgical Provider 04/23/23 11/19/23 Wilma Saba MD [address] [place] [address] 551394 Assigned OBGYN Provider 04/09/23 Jeannette Jean Baptiste NP [address] [place] [address] 331605 Assigned PCP 06/23/23 Cynthia Dubon MD [address] [place] [address] 477055 Assigned Heart and Vascular Provider 07/01/23 Corby Centeno MD [address] [place] [address] 737435 Assigned Surgical Provider 11/20/23 documented as of this encounter
--- OUTSIDE RECORDS SUMMARY | 2024-04-03 03:46 | XMS_ITS | Encounter Summary ---
Author Organization [place] Address [address] [facility] [place] [address] Care Team Providers Care Journeyman Pipe Fitter Name Role Phone Shirlene Amos MD Unavailable [phone] [facility] Primary Care Provider Burton Duncan MD Unavailable [phone] Pat Cole APRN FOUNDRY WORKER GENERAL Unavailable [phone] Yohana Estes PA-C Unavailable [phone] Letha Manzanares MD Unavailable Unavailable Corby Centeno MD Unavailable [phone] Cynthia Dubon MD Unavailable [phone] Letha Manzanares MD Unavailable Unavailable Wilma Saba MD Unavailable [phone] Jeannette Jean Baptiste NP Unavailable [phone] Cynthia Dubon MD Unavailable [phone] System, Provider Not In Primary Care Provider Un available Corby Centeno MD Unavailable [phone] Encounter Details Date Type Department Care Team (Late st Contact Info) Description 12/14/2022 [facility] [address] [place] [address] [address] [place] [phone] Kristi Stone Social History Tobacco Use Types [...] PM CDT 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 Gender Identity Female 09/29/2020 3:49 PM CDT Sexual Orientation Straight 09/29/2020 3: 49 PM CDT documented as of this encounter Plan of Treatment Not on file documented as of this encounter Visit Diagnoses Not on filedocumented in this encounter Additional Health Concerns Assessment Noted Time PHQ-9 Depression Total Score: 1 10/19/19 23 2:57 PM CDT documented as of this encounter Care Teams Journeyman Pipe Fitter Relationship Specialty Start Date End Date Clinic - [facility] [address] [place] [address] PCP - General Clinic 10/03/22 07/14/23 System, Provider Not In PCP - General Clinic 07/15/23 Shilrene Amos MD [address] [facility] [place] [address] Dermatology 12/29/15 Burton Duncan MD [address] [place] [address] Assigned Musculoskeletal Provider 12/19/21 07/21/23 Pat Cole APRN FOUNDRY WORKER GENERAL [address] [place] [address] Nurse Practitioner 01/19/22 Yohana Estes PA-C [address] [place] [address] Assigned PCP 05/08/22 06/22/23 Letha Manzanares MD [address] [place] [address] MD Anthony 03/25/23 02/15/24 Corby Centeno MD [address] [place] [address] MD Dermatology 03/29/23 Cynthia Dubon MD [address] [place] [address] 461685 Cardiovascular Disease 04/19/23 Letha Manzanares MD Assigned Surgical Provider 04/23/23 11/19/23 Wilma Saba MD [address] 798394 Assigned OBGYN Provider 04/09/23 Jeannette Jean Baptiste NP [address] 351825 Assigned PCP 06/23/23 Cynthia Dubon MD [address] [place] [address] 918765 Assigned Heart and Vascular Provider 07/01/23 Corby Centeno MD [address] [place] [address] 397475 Assigned Surgical Provider 11/20/23 documented as of this encounter
--- OUTSIDE RECORDS SUMMARY | 2024-04-03 03:46 | XMS_ITS | Encounter Summary ---
Author Organization [place] Address [address] [facility] [place] [address] Care Team Providers Care Indian Trader Name Role Phone Shirlene Amos MD Unavailable [phone] [facility] Primary Care Provider Franklyn Chadwick DPM Unavailable +[phone] Heidi Gunn PA-C Unavailable [phone] Sukumar Villarreal MD Unavailable +[phone] Burton Duncan MD Unavailable [phone] Pat Cole APRN PARTS COUNTER ASSOCIATE Unavailable [phone] Yohana Estes PA-C Unavailable [phone] Letha Manzanares MD Unavailable Unavailable Corby Centeno MD Unavailable [phone] Cynthia Dubon MD Unavailable [phone] Letha Manzanares MD Unavailable Unavailable Wilma Saba MD Unavailable [phone] Jeannette Jean Baptiste NP Unavailable [phone] Cynthia Dubon MD Unavailable [phone] System, Provider Not In Primary Care Provider Un available Corby Centeno MD Unavailable [phone] Encounter Details Date Type Department Care Team (Late st Contact Info) Description 11/11/2021 [facility] [address] [place] [address] Geraldo Lui MA Social History [...] PM CDT 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 [place] [address] Dermatology 12/29/15 Franklyn Chadwick DPM [address] [facility] [place] [address] Assigned Musculoskeletal Provider 05/18/20 11/13/21 Heidi Gunn PA-C [address] [place] [address] Assigned PCP 03/08/21 05/07/22 Sukumar Villarreal MD 6[address] [place], [place] 209202 Assigned Musculoskeletal Provider 11/14/21 12/18/21 Burton Duncan MD [address] [place] [address] 544991 Assigned Musculoskeletal Provider 12/19/21 07/21/23 Pat Cole APRN CNP [address] [place] [address] [id number] Nurse Practitioner 01/19/22 Yohana Estes PA-C [address] [place] [address] Assigned PCP 05/08/22 06/22/23 Letha Manzanares MD [address] [place] [address] MD Anthony 03/25/23 02/15/24 Corby Centeno MD [address] [place] [address] 463835 Dermatology 03/29/23 Cynthia Dubon MD [address] [place] [address] 583315 Cardiovascular Disease 04/19/23 Letha Manzanares MD Assigned Surgical Provider 04/23/23 11/19/23 Wilma Saba MD [address] [place], [place] [address] [address] Assigned OBGYN Provider 04/09/23 Jeannette Jean Baptiste NP [address] [place] [address] 105115 Assigned PCP 06/23/23 Cynthia Dubon MD [address] [place] [address] Assigned Heart and Vascular Provider 07/01/23 Corby Centeno MD [address] [place] [address] 102455 Assigned Surgical Provider 11/20/23 documented as of this encounter
--- OUTSIDE RECORDS SUMMARY | 2024-04-03 03:46 | XMS_ITS | Encounter Summary ---
Author Organization [place] Address [address] [facility] [place] [address] Care Team Providers Care Doll Wig Hackler Name Role Phone ZohaibyanelisShirlene MD Unavailable [phone] [facility] Primary Care Provider Heidi Gunn PA-C Unavailable [phone] Burton Duncan MD Unavailable [phone] Pat Cole APRN RETAIL SALES ASSOCIATE SEASONAL Unavailable [phone] Yohana Estes-C Unavailable [phone] Letha Manzanares MD Unavailable Unavailable Corby Centeno MD Unavailable [phone] Cynthia Dubon MD Unavailable [phone] Letha Manzanares MD Unavailable Unavailable Wilma Saba MD Unavailable [phone] Jeannette Jean Baptiste NP Unavailable [phone] Cynthia Dubon MD Unavailable [phone] System, Provider Not In Primary Care Provider Un available Corby Centeno MD Unavailable [phone] Reason for Visit * Reason Onset Date Comments Procedure 03/01/2022 bilateral lumbar 3,4,5 medial branch nerve blocks #1 with plan to proceed to RFA Encounter Details Date Type Department Care Team (Late st Contact Info) Description 03/01/2022 [facility] [address] [facility] [place] [phone] Pat Cole APRN RETAIL SALES ASSOCIATE SEASONAL [address] [facility] [place] [address] Procedure ( bilateral lumbar 3,4,5 medial [...] PM CDT Legal Sex Female 4:01 AM SPARE HAND Gender Identity Female 09/29/2020 3:49 PM CDT [...] be done at which interventional clinic site? [facility] Procedure [...] PA is needed ?? IF SCHEDULING IN [place] AND NEEDS A PA, IT IS OKAY TO SCHEDULE. [place] HANDLES THEIR OWN PA'S AFTER THE PATIENT [...] route to Yelena Begum and PM&R Nurse [[id number]] Is an patient educator needed? No Patient has a drive home? [...] and note in scheduling comments.) Allergies: Mold, [place] [nuts], Claritin [loratadine], Flexeril [cyclobenzaprine], Imitrex [sumatriptan], and Morphine Does patient have an MRI/CT? YES: 2020 Check Procedure Scheduling Grid to see if required. ?? Was the MRI done within the last 3 years? Yes ?? If yes, where was the MRI done i.e.[facility], [facility], [facility], [facility] etc? [facility] ?? If no, do not schedule and route to nursing/ Dr. Beck's Team ?? If MRI was not done at [facility], [facility] or [facility] do NOT schedule and route to [...] day of the procedu re, please call [phone] to reschedule. YES: Reminders: ?? If you [...] Total Score: 5 05/06/20 21 7:33 AM SPARE HAND documented as of this encounter Care Teams Doll Wig Hackler Relationship Specialty Start Date End Date Clinic - [facility] [address] [place] [address] PCP - General Clinic 10/03/22 07/14/23 System, Provider Not In PCP - General Clinic 07/15/23 Shirlene Amos MD [address] [facility] [place] [address] Dermatology 12/29/15 Heidi Gunn PAGuillermoC [address] [place] [address] Assigned PCP 03/08/21 05/07/22 Burton Duncan MD [address] [place] [address] Assigned Musculoskeletal Provider 12/19/21 07/21/23 Pat Cole APRN CNP [address] [place] [address] Nurse Practitioner 01/19/22 Yohana Estes PA-C [address] [place] [address] Assigned PCP 05/08/22 06/22/23 Letha Manzanares MD [address] [place] [address] MD Anthony 03/25/23 02/15/24 Corby Centeno MD [address] [place] [address] Dermatology 03/29/23 Cynthia Dubon MD [address] [place] [address] 075805 Cardiovascular Disease 04/19/23 Letha Manzanares MD Assigned Surgical Provider 04/23/23 11/19/23 Wilma Saba MD [address] 805154 Assigned OBGYN Provider 04/09/23 Jeannette Jean Baptiste, POLYMER TESTER [address] [place] [address] 755645 Assigned PCP 06/23/23 Cynthia Dubon MD [address] [place] [address] 170145 Assigned Heart and Vascular Provider 07/01/23 Corby Centeno MD 909 [place] [address] Assigned Surgical Provider 11/20/23 documented as of this encounter
--- OUTSIDE RECORDS SUMMARY | 2024-04-03 03:46 | XMS_ITS | Encounter Summary ---
Author Organization [place] Address [address] [facility] [place] [address] Care Team Providers Care Mess Attendant Crew Name Role Phone BetteShirlene MD Unavailable [phone] Manju Crooks CHEERLEADING COACH CNM Unavailable [facility] Primary Care Provider Zaira Queen APRN ASSEMBLER PRODUCT Unavailable Franklyn Chadwick DPM Unavailable [phone] Eva Echols DO Unavailable [phone] Heidi Gunn PA-C Unavailable [phone] Sukumar Villarreal MD Unavailable [phone] Burton Duncan MD Unavailable [phone] Pat Cole APRN ASSEMBLER PRODUCT Unavailable [phone] Yohana Estes-C Unavailable [phone] Letha Manzanares MD Unavailable Unavailable Corby Centeno MD Unavailable [phone] Cynthia Dubon MD Unavailable [phone] Letha Manzanares MD Unavailable Unavailable Wilma Saba MD Unavailable [phone] Jeannette Jean Baptiste NP Unavailable [phone] Cynthia Dubon MD Unavailable [phone] System, Provider Not In Primary Care Provider Un available Corby Centeno MD Unavailable [phone] Reason for Referral * Diagnostic Imaging Ultrasound (Routine) - Closed Specialty Diagnoses / Procedures Referred By Contac t Referred To Contact Diagnoses Pelvic cramping Procedures US Pelvic Complete with Transvaginal Zaira Queen APRN CNP Phone: tel: fax: Referral ID Status Reason Start Date Expiration Date Visits Re quested Visits Authorized [id number] Closed 08/28/2020 08/28/2021 1 1 * (Routine) - Closed Specialty Diagnoses / Procedures Referred By Contac t Referred To Contact Gastroenterology Diagnoses LUQ abdominal pain Epigastric pain Zaira Queen APRN CNP Phone: tel: fax: Referral ID Status Reason Start Date Expiration Date Visits Re quested Visits Authorized [id number] Closed 08/27/2020 08/27/2021 1 1 Scheduling Instructions If EUS or ERCP is selected, it requires clinical review prior to scheduling. Question Answer Procedure: Upper Endoscopy Upper Endoscopy Type: EGD Upper Endoscopy Sedation: Conscious/Moderate Upper Endoscopy Reason for Procedure: LUQ/epigastric pain after eating, CT unremarkable Preferred Location: [facility] Scheduling Instructions: If you have not heard from the scheduling office within 2 business days, please call [phone]. Comments Please be aware that coverage of these services is subject to the terms and limitations of your health insurance plan. Call member services at your health plan with any benefit or coverage questions. If you have not heard from the scheduling office within 2 business days, please call [phone]. 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 JACE HOWARD MD Zaira Queen APRN [facility] US ORDERA BLES Final Result documented in [...] documented as of this encounter Care Teams Mess Attendant Crew Relationship Specialty Start Date End Date Clinic - [facility] [id number] [place] [address] PCP - General Clinic 10/03/22 07/14/23 System, Provider Not In PCP - General Clinic 07/15/23 Shirlene Amos MD [address] [facility] [place] [address] Dermatology 12/29/15 Manju Crooks APRN [facility] Assigned OBGYN Provider 03/21/20 09/19/21 Zaira Queen APRN ASSEMBLER PRODUCT [address] [place] [address] Assigned PCP 05/04/20 03/07/21 Franklyn Chadwick DPM [address] [place] [address] Assigned Musculoskeletal Provider 05/18/20 11/13/21 [place] [address] [place] [address] Assigned Gastroenterology Provider 11/23/20 12/20/20 Heidi Gunn PA-C [address] [place] [address] Assigned PCP 03/08/21 05/07/22 Sukumar Villarreal MD 6341 [place], [place] 620882 Assigned Musculoskeletal Provider 11/14/21 12/18/21 Burton Duncan MD [address] [place] [address] Assigned Musculoskeletal Provider 12/19/21 07/21/23 Pat Cole APRN ASSEMBLER PRODUCT 909 [place], [place] 635385 Nurse Practitioner 01/19/22 Yohana Estes PA-C 290 [place] [address] Assigned PCP 05/08/22 06/22/23 Letha Manzanares MD [address] [place] [address] OR Ophthalmology 03/25/23 02/15/24 Corby Centeno MD [address] [place] [address] MD Dermatology 03/29/23 Cynthia Dubon MD [address] [place] [address] Cardiovascular Disease 04/19/23 Letha Manzanares MD Assigned Surgical Provider 04/23/23 11/19/23 Wilma Saba MD [address] 504504 Assigned OBGYN Provider 04/09/23 Jeannette Jean Baptiste NP [address] [place] [address] Assigned PCP 06/23/23 Cynthia Dubon MD [address] [place] [address] Assigned Heart and Vascular Provider 07/01/23 Corby Centeno MD [address] [place] [address] Assigned Surgical Provider 11/20/23 documented as of this encounter
--- OUTSIDE RECORDS SUMMARY | 2024-04-03 03:46 | XMS_ITS | Encounter Summary ---
Author Organization [place] Address [address] [facility] [place] [address] Care Team Providers Care Car Hiker Name Role Phone Shirlene Amos MD Unavailable [phone] Pat Cole APRN MENTAL HEALTH NURSE Unavailable [phone] Letha Manzanares MD Unavailable Unavailable Corby Centeno MD Unavailable [phone] Cynthia Dubon MD Unavailable [phone] Letha Manzanares MD Unavailable Unavailable Wilma Saba MD Unavailable [phone] Jeannette Jean Baptiste NP Unavailable [phone] Cynthia Dubon MD Unavailable [phone] System, Provider Not In Primary Care Provider Un available Corby Centeno MD Unavailable [phone] Encounter Details Date Type Department Care Team (Late st Contact Info) Description 10/14/2023 [facility] [address] [place] [address] Bertha [place] Social History Tobacco Use Types Packs/Day Years [...] in an abandoned building, in an overnight intermediate, or couch-surfing.) Yes 02/22/2023 Are you worried [...] PM CDT 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 Gender Identity Female 09/29/2020 3:49 PM CDT Sexual Orientation Straight 09/29/2020 3: 49 PM CDT documented as of this encounter Plan of Treatment Not on file documented as of this encounter Visit Diagnoses Not on filedocumented in this encounter Additional Health Concerns Assessment Noted Time PHQ-9 Depression Total Score: 1 04/07/20 23 7:[address] IN TELLER documented as of this encounter Care Teams Car Hiker Relationship Specialty Start Date End Date System, Provider Not In PCP - General Clinic 07/15/23 Shirlene Amos MD [address] [facility] [place] [address] Dermatology 12/29/15 Pat Cole APRN MENTAL HEALTH NURSE [address] [place] [address] Nurse Practitioner 01/19/22 Letha Manzanares MD [address] [place] [address] Ophthalmology 03/25/23 02/15/24 Corby Centeno MD [address] [place] [address] 253815 Dermatology 03/29/23 Cynthia Dubon MD [address] [place] [address] 586435 Cardiovascular Disease 04/19/23 Letha Manzanares MD Assigned Surgical Provider 04/23/23 11/19/23 Wilma Saba MD [address] [place] [address] Assigned OBGYN Provider 04/09/23 Jeannette Jean Baptiste NP [address] [place] [address] 152635 Assigned PCP 06/23/23 Cynthia Dubon MD [address] [place] [address] 195875 Assigned Heart and Vascular Provider 07/01/23 Corby Centeno MD [address] [place] [address] 042315 Assigned Surgical Provider 11/20/23 documented as of this encounter
--- OUTSIDE RECORDS SUMMARY | 2024-04-03 03:46 | XMS_ITS | Encounter Summary ---
Author Organization [place] Address [address] [facility] [place] [address] Care Team Providers Care Licensed Home Inspector Name Role Phone ZohaibyanelisShirlene MD Unavailable [phone] [facility] Primary Care Provider Heidi Gunn PA-C Unavailable [phone] Burton Duncan MD Unavailable [phone] Pat Cole APRN PARTS CONTROL CLERK Unavailable [phone] Yohana Estes-C Unavailable [phone] Letha Manzanares MD Unavailable Unavailable Corby Centeno MD Unavailable [phone] Cynthia Dubon MD Unavailable [phone] Letha Manzanares MD Unavailable Unavailable Wilma Saba MD Unavailable [phone] Jeannette Jean Baptiste NP Unavailable [phone] Cynthia Dubon MD Unavailable [phone] System, Provider Not In Primary Care Provider Un available Corby Centeno MD Unavailable [phone] Encounter Details Date Type Department Care Team (Late st Contact Info) Description 01/18/2022 [facility] [address] [place] [phone] [facility] Social History Tobacco Use Types Packs/Day Years [...] PM CDT 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 Gender Identity Female 09/29/2020 3:49 PM CDT [...] Total Score: 5 05/06/20 21 7:33 AM BAKER BREAD documented as of this encounter Care Teams Licensed Home Inspector Relationship Specialty Start Date End Date Clinic - [facility] [address] [place] [address] PCP - General Clinic 10/03/22 07/14/23 System, Provider Not In PCP - General Clinic 07/15/23 Shirlene Aoms MD [address] [facility] [place] [address] Dermatology 12/29/15 Heidi Gunn, PAGuillermoC [address] [place] [address] Assigned PCP 03/08/21 05/07/22 Burton Duncan MD [address] [place] [address] 586871 Assigned Musculoskeletal Provider 12/19/21 07/21/23 Pat Cole APRN PARTS CONTROL CLERK [address] [place] [address] 649015 Nurse Practitioner 01/19/22 Yohana Estes PA-C 290 [place], [place] 038320 Assigned PCP 05/08/22 06/22/23 Letha Manzanares MD [address] [place] [address] [facility] 03/25/23 02/15/24 Corby Centeno MD [address] [place] [address] 028375 Dermatology 03/29/23 Cynthia Dubon MD [address] [place] [address] 313315 Cardiovascular Disease 04/19/23 Letha Manzanares MD Assigned Surgical Provider 04/23/23 11/19/23 Wilma Saba MD [address] [place] [address] 395184 Assigned OBGYN Provider 04/09/23 Jeannette Jean Baptiste, [place] [address] [place] [address] Assigned PCP 06/23/23 Cynthia Dubon MD 909 [place], [place] 692465 Assigned Heart and Vascular Provider 07/01/23 Corby Centeno MD 909 [place] [address] Assigned Surgical Provider 11/20/23 documented as of this encounter
--- OUTSIDE RECORDS SUMMARY | 2024-04-03 03:46 | XMS_ITS | Encounter Summary ---
Author Organization [place] Address [address] [facility] [place] [address] Care Team Providers Care Fiscal Accountant Name Role Phone BetteShirlene MD Unavailable [phone] Manju Crooks SURGICAL DENTAL ASSISTANT CNM Unavailable [facility] Primary Care Provider Zaira Queen APRN SECONDARY ART TEACHER Unavailable Franklyn Chadwick DPM Unavailable [phone] Eva Echols DO Unavailable [phone] Heidi Gunn PA-C Unavailable [phone] Sukumar Villarreal MD Unavailable [phone] Burton Duncan MD Unavailable [phone] Pat Cole APRN SECONDARY ART TEACHER Unavailable [phone] Yohana Estes-C Unavailable [phone] Letha Manzanares MD Unavailable Unavailable Corby Centeno MD Unavailable [phone] Cynthia Dubon MD Unavailable [phone] Letha Manzanares MD Unavailable Unavailable Wilma Saba MD Unavailable [phone] Jeannette Jean Baptiste NP Unavailable [phone] Cynthia Dubon MD Unavailable [phone] System, Provider Not In Primary Care Provider Un available Corby Centeno MD Unavailable [phone] Encounter Details Date Type Department Care Team (Late st Contact Info) Description 09/05/2020 [facility] [address] [facility] [address] [place] [address] Zaira Queen APRN SECONDARY ART TEACHER [address] [place] [address] Social History Tobacco Use Types [...] PM CDT 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 [address] [place] [address] PCP - General Clinic 10/03/22 07/14/23 System, Provider Not In PCP - General Clinic 07/15/23 Shirlene Amos MD [address] [facility] [place] [address] Dermatology 12/29/15 Manju Crooks, SURGICAL DENTAL ASSISTANT CNM Assigned OBGYN Provider 03/21/20 09/19/21 Zaira Queen APRN SECONDARY ART TEACHER [address] [place] [address] Assigned PCP 05/04/20 03/07/21 Franklyn Chadwick DPM [address] [place] [address] [place] [address] Assigned Musculoskeletal Provider 05/18/20 11/13/21 [place] [address] [place] [address] 19[address] Assigned Gastroenterology Provider 11/23/20 12/20/20 Heidi Gunn PA-C [address] [place] [address] Assigned PCP 03/08/21 05/07/22 Sukumar Villarreal MD [address] [place] [address] Assigned Musculoskeletal Provider 11/14/21 12/18/21 Burton Duncan MD [address] [place] [address] Assigned Musculoskeletal Provider 12/19/21 07/21/23 Pat Cole APRN CNP [address] [place] [address] Nurse Practitioner 01/19/22 Yohana Estes PA-C 290 [place] [address] Assigned PCP 05/08/22 06/22/23 Letha Manzanares MD [address] [place] [address] Ophthalmology 03/25/23 02/15/24 Corby Centeno MD [address] [place] [address] 402685 Dermatology 03/29/23 Cynthia Dubon MD [address] [place] [address] 434975 Cardiovascular Disease 04/19/23 Letha Manzanares MD Assigned Surgical Provider 04/23/23 11/19/23 Wilma Saba MD [address] [place] [address] 725184 Assigned OBGYN Provider 04/09/23 Jeannette Jean Baptiste NP [address] [place] [address] 597725 Assigned PCP 06/23/23 Cynthia Dubon MD [address] [place] [address] 751255 Assigned Heart and Vascular Provider 07/01/23 Corby Centeno MD 9 [place] [address] Assigned Surgical Provider 11/20/23 documented as of this encounter
--- OUTSIDE RECORDS SUMMARY | 2024-04-03 03:46 | XMS_ITS | Encounter Summary ---
Author Organization [place] Address [address] [facility] [place] [address] Care Team Providers Care Environmental Marketer Name Role Phone ZohaibyanelisShirlene MD Unavailable [phone] [facility] Primary Care Provider Heidi Gunn PA-C Unavailable [phone] Burton Duncan MD Unavailable [phone] Pat Cole APRN STRATEGIC ACCOUNT DIRECTOR Unavailable [phone] Yohana Estes-C Unavailable [phone] Letha Manzanares MD Unavailable Unavailable Corby Centeno MD Unavailable [phone] Cynthia Dubon MD Unavailable [phone] Letha Manzanares MD Unavailable Unavailable Wilma Saba MD Unavailable [phone] Jeannette Jean Baptiste NP Unavailable [phone] Cynthia Dubon MD Unavailable [phone] System, Provider Not In Primary Care Provider Un available Corby Centeno MD Unavailable [phone] Encounter Details Date Type Department Care Team (Late st Contact Info) Description 02/15/2022 MyC Medical Advice [facility] [address] [place] [phone] [place] Daily Social History Tobacco Use Types [...] PM CDT 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 Gender Identity Female 09/29/2020 3:49 PM [...] Total Score: 5 05/06/20 21 7:33 AM BEAMING INSPECTOR documented as of this encounter Care Teams Environmental Marketer Relationship Specialty Start Date End Date Clinic - [facility] [address] [place] [address] PCP - General Clinic 10/03/22 07/14/23 System, Provider Not In PCP - General Clinic 07/15/23 Shirlene Amos MD [address] [facility] [place] [address] Dermatology 12/29/15 Heidi Gunn PAGuillermoC [address] [place] [address] Assigned PCP 03/08/21 05/07/22 Burton Duncan MD [address] [place] [address] 315061 Assigned Musculoskeletal Provider 12/19/21 07/21/23 Pat Cole APRN STRATEGIC ACCOUNT DIRECTOR [address] [place] [address] 709385 Nurse Practitioner 01/19/22 Yohana Estes PA-C [address] [place], [place] [address] Assigned PCP 05/08/22 06/22/23 Letha Manzanares MD [address] [place] [address] [facility] 03/25/23 02/15/24 Corby Centeno MD [address] [place] [address] 556265 Dermatology 03/29/23 Cynthia Dubon MD [address] [place] [address] 232375 Cardiovascular Disease 04/19/23 Letha Manzanares MD Assigned Surgical Provider 04/23/23 11/19/23 Wilma Saba MD [address] [place] [address] 401334 Assigned OBGYN Provider 04/09/23 Jeannette Jean Baptiste NP [address] [place] [address] Assigned PCP 06/23/23 Cynthia Dubon MD 9[address] [place], [place] 470225 Assigned Heart and Vascular Provider 07/01/23 Corby Centeno MD 909 [place] [address] Assigned Surgical Provider 11/20/23 documented as of this encounter
--- OUTSIDE RECORDS SUMMARY | 2024-04-03 03:46 | XMS_ITS | Referral Summary ---
Author Organization [place] Address [address] [facility] [place] [address] Care Team Providers Care Cyber Incident Responder Name Role Phone Shirlene Amos MD Unavailable Pat Cole APRN VAULT SERVICE MECHANIC Unavailable [phone] Corby Centeno MD Unavailable [phone] Cynthia Dubon MD Unavailable [phone] Wilma Saba MD Unavailable [phone] Jeannette Jean Baptiste NP Unavailable [phone] Cynthia Dubon MD Unavailable [phone] System, Provider Not In Primary Care Provider Un available Corby Centeno MD Unavailable [phone] Allergies Active Allergy Reactions Criticality Noted Date [...] (10/22/2021): Added automatically from request for surgery [id number] Back muscle spasm 04/28/2018 Assessment & Plan (04/28/2018 9:48 AM BEAUTICIAN APPRENTICE): Acute muscle spasm likely triggered by underlying [...] bef 03/19/21. 03/25/20 Pt sent results via [employer]. 03/26/20 Pt viewed results on [employer]. 03/05/21 Reminder [employer] 04/02/21 Reminder call - lm 05/06/21 Lost [...] 03/30/2023 Immunizations Name Administration Dates Next Due A5x1-69 Novel Flu 06/23/2009 Influenza (IIV3) PF 03/11/2014,06/23/2009 [...] PM CDT Legal Sex Female 4:01 AM BEAUTICIAN APPRENTICE Gender Identity Female 09/29/2020 3:49 PM CDT Sexual Orientation Straight 09/29/2020 3: 49 PM CDT Last Filed Vital Signs Vital Sign Reading Time Taken Comments Blood Pressure 96/61 07/15/2023 9:30 AM BEAUTICIAN APPRENTICE Pulse 64 07/15/2023 9:30 AM BEAUTICIAN APPRENTICE Temperature 36.7 ??C (98 ??F) 07/15/2023 9:42 AM BEAUTICIAN APPRENTICE Respiratory Rate 18 07/15/2023 9:42 AM BEAUTICIAN APPRENTICE Oxygen Saturation 98% 07/15/2023 9:42 AM BEAUTICIAN APPRENTICE Inhaled Oxygen Concentration - - Weight 88 kg (194 lb 0.1 oz) 07/15/2023 6:41 AM BEAUTICIAN APPRENTICE Height 166.6 cm (5' 5.59) 07/15/2023 6:41 AM CS T Body Mass Index 31.7 07/15/2023 6:41 AM BEAUTICIAN APPRENTICE Plan of Treatment Not on file Medical Devices Implanted Type Area Rugby League Footballer Device Identifier Shelf Expiration Date Model / Serial / Lot Iud Contraceptive Device Mirena [address]-40 - [id number] Implanted:Qty: 1 on 07/15/2023 by Wilma Saba MD at [facility] Contraceptive Device N/A: Uterus HARI 06/29/2025 [id number] 07-28 [id number] Arthrex Ankle Fracture Management System, 2.6mm Drill Bit, Cannulated Implanted:Qty: 1 on 11/04/2021 by Sukumar Villarreal MD at [facility] Right: Ankle [id number] 2220 3 Arthrex Ankle Fracture Management System, 4mm Cannulated, Short Threaded, 40mm Implanted:Qty: 1 on 11/04/2021 by Sukumar Villarreal MD at [facility] Right: Ankle [id number] 2220 3 Arthrex Ankle Fracture Management System, 4mm Cannulated, Short Thread, 50mm Implanted:Qty: 1 on 11/04/2021 by Sukumar Villarreal MD at [facility] Right: Ankle [id number] -50 2220 3 Explanted Type Area Rugby League Footballer Device Identifier Shelf Expiration Date Model / Serial / Lot Arthrex Ankle Fracture Management System, Guidewire W/ Trocar Tip, Threaded, 0.062 In Explanted:Qty: 2 on 11/04/2021 by Sukumar Villarreal MD at [facility] Right: Ankle [id number] 2220 3 Procedures Procedure Name Priority Date/Time Associated Diagnosis Comments COMPREHENSIVE METABOLIC PANEL STAT 04/19/2023 10:11 PM BEAUTICIAN APPRENTICE HIV ANTIGEN ANTIBODY COMBO Routine 04/07/2023 9:34 AM BEAUTICIAN APPRENTICE History of substance abuse (H) HEPATITIS C SCREEN REFLEX TO HCV RNA QUANT AND GENOTYPE Routine 04/07/2023 9:34 AM BEAUTICIAN APPRENTICE History of substance abuse (H) LIPID REFLEX [...] (ABNORMAL) Comprehensive metabolic panel (04/19/2023 10:11 PM BEAUTICIAN APPRENTICE) Pathologist [facility] Sodium 138 135 - 145 mmol/L 04/19/2023 10:59 PM BEAUTICIAN APPRENTICE [facility] Comment:Reference intervals for this test were updated on 02/22/2023 to more accurately reflect our healthy population. There may be differences in the flagging of prior results with similar values performed with this method. Interpretation of those prior results can be made in the context of the updated reference intervals. Potassium 4.0 3.4 - 5.3 mmol/L 04/19/2023 10:59 PM BEAUTICIAN APPRENTICE [facility] Carbon Dioxide (CO2) 28 22 - 29 mmol/L 04/19/2023 10:59 PM BEAUTICIAN APPRENTICE [facility] Anion Gap 7 7 - 15 mmol/L 04/19/2023 10:59 PM BEAUTICIAN APPRENTICE [facility] Urea Nitrogen 16.1 6.0 - 20.0 mg/dL 04/19/2023 10:59 PM BEAUTICIAN APPRENTICE [facility] Creatinine 0.89 0.51 - 0.95 mg/dL 04/19/2023 10:59 PM BEAUTICIAN APPRENTICE [facility] GFR Estimate 83 >60 mL/min/1. 73m2 04/19/2023 10:59 PM BEAUTICIAN APPRENTICE [facility] Calcium 9.2 8.6 - 10.0 mg/dL 04/19/2023 10:59 PM BEAUTICIAN APPRENTICE [facility] Chloride 103 98 - 107 mmol/L 04/19/2023 10:59 PM BEAUTICIAN APPRENTICE [facility] Glucose 105(H) 70 - 99 mg/dL 04/19/2023 10:59 PM BEAUTICIAN APPRENTICE [facility] Alkaline Phosphatase 70 40 - 150 U/L 04/19/2023 10:59 PM BEAUTICIAN APPRENTICE [facility] Comment:Reference intervals for this test were updated on 04/12/2023 to more accurately reflect our healthy population. There may be differences in the flagging of prior results with similar values performed with this method. Interpretation of those prior results can be made in the context of the updated reference intervals. AST 19 0 - 45 U/L 04/19/2023 10:59 PM BEAUTICIAN APPRENTICE [facility] Comment:Reference intervals for this test were updated on 11/08/2022 to more accurately reflect our healthy population. There may be differences in the flagging of prior results with similar values performed with this method. Interpretation of those prior results can be made in the context of the updated reference intervals. ALT 25 0 - 50 U/L 04/19/2023 10:59 PM BEAUTICIAN APPRENTICE [facility] Comment:Reference intervals for this test were updated on 11/08/2022 to more accurately reflect our healthy population. There may be differences in the flagging of prior results with similar values performed with this method. Interpretation of those prior results can be made in the context of the updated reference intervals. Protein Total 6.5 6.4 - 8.3 g/dL 04/19/2023 10:59 PM BEAUTICIAN APPRENTICE [facility] Albumin 3.9 3.5 - 5.2 g/dL 04/19/2023 10:59 PM BEAUTICIAN APPRENTICE [facility] Bilirubin Total <0.2 <=1.2 mg/dL 04/19/2023 10:59 PM BEAUTICIAN APPRENTICE [facility] Blood BLOOD SPECIMEN / Unknown Venipuncture / Unknown 04/19/2023 10:11 PM BEAUTICIAN APPRENTICE 04/19/2023 10:19 PM BEAUTICIAN APPRENTICE us Aida Teague MD LAB - BLOOD ORDERABLES Final Res ult [facility] [address] [facility], [address] [place] [address], [facility] [phone] * HIV Antigen Antibody Combo [place] (04/07/2023 9:34 AM BEAUTICIAN APPRENTICE) HIV Antigen Antibody Combo Nonreactive Nonreactive 04/08/2023 10:32 AM BEAUTICIAN APPRENTICE [facility] DO Comment:HIV-1 p24 Ag & HIV-1 /HIV-2 Ab Not Detected Blood BLOOD SPECIMEN / Unknown Venipuncture / Unknown 04/07/2023 9:34 AM BEAUTICIAN APPRENTICE 04/07/2023 9:34 AM BEAUTICIAN APPRENTICE Jeannette Jean Baptiste NP LAB - BLOOD ORDERABLES Final Result [facility]O [facility]Endo [address] [facility], [address] [phone] * Hepatitis C Screen Reflex to HCV RNA Quant and Genotype (04/07/2023 9:34 AM BEAUTICIAN APPRENTICE) Pathologist [facility] Hepatitis C Antibody Nonreactive Nonreactive 04/08/2023 9:37 AM BEAUTICIAN APPRENTICE [facility] DO Blood BLOOD SPECIMEN / Unknown Venipuncture / Unknown 04/07/2023 9:34 AM BEAUTICIAN APPRENTICE 04/07/2023 9:34 AM BEAUTICIAN APPRENTICE Narrative [facility] - 04/08/2023 9:37 AM BEAUTICIAN APPRENTICE Assay performance characteristics have not been established for newborns, infants, and children. Jeannette Jean Baptiste NP LAB - BLOOD ORDERABLES Final Result [facility]Prot[facility]Endo [address] [facility], [place] [address], [facility] [phone] * Lipid panel reflex to direct LDL Fasting (03/01/2023 1:33 PM CDT) Pathologist [facility] Cholesterol 156 <200 mg/dL 03/02/2023 2:22 PM [...] to 220 mg/dL Eulalia Luna Юлия MCCANNN VAULT SERVICE MECHANIC LAB - BLOOD ORDER EMMETT Final Result [facility] [address] [facility], [address] [place] [phone], [facility] [phone] * Pap screen with HPV - recommended [...] CDT 02/22/2023 11:50 AM CDT Eulalia Redman LONG CHAIN DYEING MACHINE OPERATOR VAULT SERVICE MECHANIC LAB - [place] AP F inal Result [facility] Specialty Lab [address] [facility], [address] [place] [phone], [facility] [phone] * HPV High Risk Types DNA Cervical (02/22/2023 11:20 AM CDT) Other HR HPV Negative Negative 02/28/2023 12:40 PM CDT [facility] HPV16 DNA Negative Negative 02/28/2023 12:40 PM CDT [facility] HPV18 DNA Negative Negative 02/28/2023 12:40 PM CDT [facility] FINAL DIAGNOSIS This patient's sample is negative for HPV DNA. This test was developed and its performance characteristics determined by the [facility], Molecular Diagnostics Laboratory. It has [...] 10:26 AM CDT Eulalia Luna Юлия MCCANNN VAULT SERVICE MECHANIC LAB - BLOOD ORDER EMMETT Final Result [facility] Molecular Diagnostics [address] [facility], [address] [place] [address], [facility] [phone] from Last 3 Months or Most Recently Relevant to Health Maintenance Insurance [facility] [employer]U CLAIMS MANAGEMENT Care Teams Cyber Incident Responder Relationship Specialty Start Date End Date System, Provider Not In PCP - General Clinic 07/15/23 Shirlene Amos MD [facility] [facility] [place] [address] Dermatology 12/29/15 Pat Cole APRN VAULT SERVICE MECHANIC [address] [place] [address] 108405 Nurse Practitioner 01/19/22 Corby Centeno MD [address] [place] [address] [phone] Dermatology 03/29/23 Cynthia Dubon MD [address] [place] [address] [id number] Cardiovascular Disease 04/19/23 Wilma Saba MD [address] 195244 Assigned OBGYN Provider 04/09/23 Jeannette Jean Baptiste NP [address] [address] Assigned PCP 06/23/23 Cynthia Dubon MD 9[address] [place] [address] Assigned Heart and Vascular Provider 07/01/23 Corby Centeno MD [address] [place] [address] Assigned Surgical Provider 11/20/23
--- OUTSIDE RECORDS SUMMARY | 2024-04-03 03:46 | XMS_ITS | Encounter Summary ---
Author Organization [place] Address [address] [facility] [place] [address] Care Team Providers Care Water Restoration Technician Name Role Phone Shirlene Amos MD Unavailable [facility] Primary Care Provider Franklyn Chadwick DPM Unavailable [phone] Heidi Gunn PA-C Unavailable Sukumar Villarreal MD Unavailable [phone] Burton Duncan MD Unavailable [phone] Pat Cole APRN EMPLOYMENT COUNSELOR Unavailable [phone] Yohana Estes PA-C Unavailable [phone] Letha Manzanares MD Unavailable Unavailable Corby Centeno MD Unavailable [phone] Cynthia Dubon MD Unavailable [phone] Letha Manzanares MD Unavailable Unavailable Wilma Saba MD Unavailable [phone] Jeannette Jean Baptiste NP Unavailable [phone] Cynthia Dubon MD Unavailable [phone] System, Provider Not In Primary Care Provider Un available Corby Centeno MD Unavailable [phone] Encounter Details Date Type Department Care Team (Late st Contact Info) Description 11/11/2021 [facility] [address] [place] [address] Geraldo Lui MA Social History [...] PM CDT Legal Sex Female 4:01 AM CDL COMPANY DRIVER Gender Identity Female 09/29/2020 3:49 PM CDT [...] Total Score: 5 05/06/20 21 7:33 AM CDL COMPANY DRIVER documented as of this encounter Care Teams Water Restoration Technician Relationship Specialty Start Date End Date [facility] [address] [place] [address] PCP - General Clinic 10/03/22 07/14/23 System, Provider Not In PCP - General Clinic 07/15/23 Shirlene Amos MD [address] [facility] [place] [address] Dermatology 12/29/15 Franklyn Chadwick DPM [address] [facility] [place] [address] Assigned Musculoskeletal Provider 05/18/20 11/13/21 Heidi Gunn PA-C [address] [place] [address] Assigned PCP 03/08/21 05/07/22 Sukumar Villarreal MD [address] [place], [place] 191142 Assigned Musculoskeletal Provider 11/14/21 12/18/21 Burton Duncan MD [address] [place] [address] 570031 Assigned Musculoskeletal Provider 12/19/21 07/21/23 Pat Cole APRN CNP [address] [place] [address] 546855 Nurse Practitioner 01/19/22 Yohana Estes PA-C [address] [place] [address] Assigned PCP 05/08/22 06/22/23 Letha Manzanares MD [address] [place] [address] MD Anthony 03/25/23 02/15/24 Corby Centeno MD [address] [place] [address] 925665 Dermatology 03/29/23 Cynthia Dubon MD [address] [place] [address] 266685 Cardiovascular Disease 04/19/23 Letha Manzanares MD Assigned Surgical Provider 04/23/23 11/19/23 Wilma Saba MD [address] [place], [place] [address] [address] [address] Assigned OBGYN Provider 04/09/23 Jeannette Jean Baptiste NP [address] [place] [address] [id number] Assigned PCP 06/23/23 Cynthia Dubon MD [address] [place] [address] Assigned Heart and Vascular Provider 07/01/23 Corby Centeno MD [address] [place] [address] [id number] Assigned Surgical Provider 11/20/23 documented as of this encounter
--- OUTSIDE RECORDS SUMMARY | 2024-04-03 03:46 | XMS_ITS | Encounter Summary ---
Author Organization [place] Address [address] [facility] [place] [address] Care Team Providers Care Chainstitch Zipper Setter Name Role Phone ZohaibyanelisShirlene MD Unavailable [phone] [facility] Primary Care Provider Heidi Gunn PA-C Unavailable [phone] Burton Duncan MD Unavailable [phone] Pat Cole APRN TANK WAGON OPERATOR Unavailable [phone] Yohana Estes-C Unavailable [phone] Letha Manzanares MD Unavailable Unavailable Corby Centeno MD Unavailable [phone] Cynthia Dubon MD Unavailable [phone] Letha Manzanares MD Unavailable Unavailable Wilma Saba MD Unavailable [phone] Jeannette Jean Baptiste NP Unavailable [phone] Cynthia Dubon MD Unavailable [phone] System, Provider Not In Primary Care Provider Un available Corby Centeno MD Unavailable [phone] Reason for Visit * Reason Onset Date Comments Patient Request 03/01/2022 Encounter Details Date Type Department Care Team (Late st Contact Info) Description 03/01/2022 [facility]phone [facility] [address] [facility] [place] [phone] Pat Cole APRN TANK WAGON OPERATOR [address] [facility] [place] [address] Patient Request Social History Tobacco Use Types [...] PM CDT Legal Sex Female 4:01 AM COLD STORAGE SUPERINTENDENT Gender Identity Female 09/29/2020 3:49 PM CDT [...] Total Score: 5 05/06/20 21 7:33 AM COLD STORAGE SUPERINTENDENT documented as of this encounter Care Teams Chainstitch Zipper Setter Relationship Specialty Start Date End Date Clinic - [facility] [address] [place] [address] PCP - General Clinic 10/03/22 07/14/23 System, Provider Not In PCP - General Clinic 07/15/23 Shirlene Amos MD [address] [facility] [place] [address] Dermatology 12/29/15 Heidi Gunn PA-C [address] [place] [address] Assigned PCP 03/08/21 05/07/22 Burton Duncan MD [address] [place] [address] Assigned Musculoskeletal Provider 12/19/21 07/21/23 Pat Cole APRN CNP [address] [place] [address] 256115 Nurse Practitioner 01/19/22 Yohana Estes PA-C [address] [place] [address] Assigned PCP 05/08/22 06/22/23 Letha Manzanares MD [address] [place] [address] Ophthalmology 03/25/23 02/15/24 Corby Centeno MD [address] [place] [address] 927185 Dermatology 03/29/23 Cynthia Dubon MD [address] [place] [address] 226065 Cardiovascular Disease 04/19/23 Letha Manzanares MD Assigned Surgical Provider 04/23/23 11/19/23 Wilma Saba MD [address] [place], [place] [address] [address] 056054 Assigned OBGYN Provider 04/09/23 Jeannette Jean Baptiste NP [address] [place] [address] [id number] Assigned PCP 06/23/23 Cynthia Dubon MD [address] [place] [address] [id number] Assigned Heart and Vascular Provider 07/01/23 Corby Centeno MD [address] [place] [address] [id number] Assigned Surgical Provider 11/20/23 documented as of this encounter
--- OUTSIDE RECORDS SUMMARY | 2024-04-03 03:46 | XMS_ITS | Encounter Summary ---
Author Organization [place] Address [address] [facility] [place] [address] Care Team Providers Care Director Of Services Name Role Phone Shirlene Amos MD Unavailable [phone] [facility] Primary Care Provider Burton Duncan MD Unavailable [phone] Pat Cole APRN PLASTER AND STUCCO WORKER Unavailable [phone] Yohana Estes PA-C Unavailable [phone] Letha Manzanares MD Unavailable Unavailable Corby Centeno MD Unavailable [phone] Cynthia Dubon MD Unavailable [phone] Letha Manzanares MD Unavailable Unavailable Wilma Saba MD Unavailable [phone] Jeannette Jean Baptiste NP Unavailable [phone] Cynthia Dubon MD Unavailable [phone] System, Provider Not In Primary Care Provider Un available Corby Centeno MD Unavailable [phone] Encounter Details Date Type Department Care Team (Late st Contact Info) Description 05/11/2023 MyC Medical Advice [facility] [address] [place] [address] Rosa Reeys CMA Social History Tobacco Use Types Packs/Day [...] PM CDT Legal Sex Female 4:01 AM DRIP PUMPER Gender Identity Female 09/29/2020 3:49 PM CDT Sexual Orientation Straight 09/29/2020 3: 49 PM CDT documented as of this encounter Plan of Treatment Not on file documented as of this encounter Visit Diagnoses Not on filedocumented in this encounter Additional Health Concerns Assessment Noted Time PHQ-9 Depression Total Score: 1 04/07/20 7:51 AM DRIP PUMPER documented as of this encounter Care Teams Director Of Services Relationship Specialty Start Date End Date Clinic - [facility] [address] [place] [address] PCP - General Clinic 10/03/22 07/14/23 System, Provider Not In PCP - General Clinic 07/15/23 Shirlene Amos MD [address] [place] [address] Dermatology 12/29/15 Burton Duncan MD [address] [place] [address] Assigned Musculoskeletal Provider 12/19/21 07/21/23 Pat Cole APRN CNP [address] [place] [address] 198075 Nurse Practitioner 01/19/22 Yohana Estes PA-C 290 [place] [address] Assigned PCP 05/08/22 06/22/23 Letha Manzanares MD [address] [place] [address] Ophthalmology 03/25/23 02/15/24 Corby Centeno MD [address] [place] [address] [phone] Dermatology 03/29/23 Cynthia Dubon MD [address] [place] [address] 369915 Cardiovascular Disease 04/19/23 Letha Manzanares MD Assigned Surgical Provider 04/23/23 11/19/23 Wilma Saba MD [address] [place], [place] 252114 Assigned OBGYN Provider 04/09/23 Jeannette Jean Baptiste NP [address] 354245 Assigned PCP 06/23/23 Cynthia Dubon MD [address] [place] [address] Assigned Heart and Vascular Provider 07/01/23 Corby Centeno MD [address] [place] [address] [id number] Assigned Surgical Provider 11/20/23 documented as of this encounter
--- OUTSIDE RECORDS SUMMARY | 2024-04-03 03:46 | XMS_ITS | Encounter Summary ---
Author Organization [place] Address [address] [facility] [place] [address] Care Team Providers Care Front Office Java Developer Name Role Phone Shirlene Amos MD Unavailable [phone] Pat Cole APRN DOG RAISER Unavailable [phone] Letha Manzanares MD Unavailable Unavailable Corby Centeno MD Unavailable [phone] Cynthia Dubon MD Unavailable [phone] Letha Manzanares MD Unavailable Unavailable Wilma Saba MD Unavailable [phone] Jeannette Jean Baptiste NP Unavailable [phone] Cyntiha Dubon MD Unavailable [phone] System, Provider Not In Primary Care Provider Un available Corby Centeno MD Unavailable [phone] Encounter Details Date Type Department Care Team (Late st Contact Info) Description 11/09/2023 [facility] [address] [address] Rosalind Jacobo, RN Social History [...] PM CDT Legal Sex Female 4:01 AM CATALYST CONCENTRATION OPERATOR Gender Identity Female 09/29/2020 3:49 PM CDT Sexual Orientation Straight 09/29/2020 3: 49 PM CDT documented as of this encounter Plan of Treatment Not on file documented as of this encounter Visit Diagnoses Not on filedocumented in this encounter Additional Health Concerns Assessment Noted Time PHQ-9 Depression Total Score: 1 04/07/20 23 7:51 AM CATALYST CONCENTRATION OPERATOR documented as of this encounter Care Teams Front Office Java Developer Relationship Specialty Start Date End Date System, Provider Not In PCP - General Clinic 07/15/23 Shirlene Amos MD [address] [facility] [place] [address] Dermatology 12/29/15 Pat Cole APRN DOG RAISER [address] [place] [address] Nurse Practitioner 01/19/22 Letha Manzanares MD [address] [place] [address] Ophthalmology 03/25/23 02/15/24 Corby Centeno MD [address] [place] [address] [id number] Dermatology 03/29/23 Cynthia Dubon MD [address] [place] [address] 217135 Cardiovascular Disease 04/19/23 Letha Manzanares MD Assigned Surgical Provider 04/23/23 11/19/23 Wilma Saba MD [address] [address] Assigned OBGYN Provider 04/09/23 Jeannette Jean Baptiste NP [address] [place] [address] [id number] Assigned PCP 06/23/23 Cynthia Dubon MD [address] [place] [address] 700265 Assigned Heart and Vascular Provider 07/01/23 Corby Centeno MD [address] [place] [address] [id number] Assigned Surgical Provider 11/20/23 documented as of this encounter
--- OUTSIDE RECORDS SUMMARY | 2024-04-03 03:46 | XMS_ITS | Encounter Summary ---
Author Organization [place] Address [address] [facility] [place] [address] Care Team Providers Care Resource Management Planner Name Role Phone ZohaibyanelisShirlene MD Unavailable [phone] Manju Crooks MINING ANALYST CNM Unavailable [facility] Primary Care Provider Franklyn Chadwick DPM Unavailable [phone] Heidi GunnC Unavailable [phone] Sukumar Villarreal MD Unavailable [phone] Burton Duncan MD Unavailable [phone] Pat Cole APRN PARIMUTUEL CLERK Unavailable [phone] Yohana Estes PA-C Unavailable [phone] Letha Manzanares MD Unavailable Unavailable Corby Centeno MD Unavailable [phone] Cynthia Dubon MD Unavailable [phone] Letha Manzanares MD Unavailable Unavailable Wilma Saba MD Unavailable [phone] Jeannette Jean Baptiste NP Unavailable [phone] Cynthia Dubon MD Unavailable [phone] System, Provider Not In Primary Care Provider Un available Corby Centeno MD Unavailable [phone] Encounter Details Date Type Department Care Team (Late st Contact Info) Description 05/06/2021 [facility] [address] [place] [address] Dora Odom, [employer] 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 No / Unsure 05/05/2021 7:55 AM DOMESTIC VIOLENCE ADVOCATE documented as of this encounter Plan of Treatment Not on file documented as of this encounter Visit Diagnoses Not on filedocumented in this encounter Additional Health Concerns Assessment Noted Time PHQ-9 Depression Total Score: 5 05/06/20 21 7:33 AM DOMESTIC VIOLENCE ADVOCATE documented as of this encounter Care Teams Resource Management Planner Relationship Specialty Start Date End Date Clinic - [facility] [address] [place] [address] PCP - General Clinic 10/03/22 07/14/23 System, Provider Not In PCP - General Clinic 07/15/23 Shirlene Amos MD [address] [facility] [place] [address] Dermatology 12/29/15 aMnju Crooks, MINING ANALYST CNM Assigned OBGYN Provider 03/21/20 09/19/21 Franklyn Chadwick DPM [address] [facility] [place] [address] Assigned Musculoskeletal Provider 05/18/20 11/13/21 Heidi Gunn PA-C [address] [place] [address] Assigned PCP 03/08/21 05/07/22 Sukumar Villarreal MD [address] [place] [address] Assigned Musculoskeletal Provider 11/14/21 12/18/21 Burton Duncan MD [address] [place] [address] 533861 Assigned Musculoskeletal Provider 12/19/21 07/21/23 Pat Cole, KATHLEEN PARIMUTUEL CLERK [address] [place] [address] 294755 Nurse Practitioner 01/19/22 Yohana Estes PA-C [address] [place] [address] Assigned PCP 05/08/22 06/22/23 Letha Manzanares MD [address] [place] [address] MD Anthony 03/25/23 02/15/24 Corby Centeno MD [address] [place] [address] 853395 Dermatology 03/29/23 Cynthia Dubon MD [address] [place] [address] 145445 Cardiovascular Disease 04/19/23 Letha Manzanares MD Assigned Surgical Provider 04/23/23 11/19/23 Wilma Saba MD [address] 334814 Assigned OBGYN Provider 04/09/23 Jeannette Jean Baptiste NP [address] [place] [address] 069055 Assigned PCP 06/23/23 Cynthia Dubon MD [address] [place] [address] 357445 Assigned Heart and Vascular Provider 07/01/23 Corby Centeno MD [address] [place] [address] [phone] Assigned Surgical Provider 11/20/23 documented as of this encounter
--- OUTSIDE RECORDS SUMMARY | 2024-04-03 03:46 | XMS_ITS | Encounter Summary ---
Author Organization [place] Address [address] [facility] [place] [address] Care Team Providers Care Casting Plug Assembler Name Role Phone Shirlene Amos MD Unavailable Heidi GunnC Primary Care Provider [phone] Heidi GunnC Unavailable [phone] Manju Crooks NIPPLE THREADER CNM Unavailable [facility] Primary Care Provider Zaira Queen NIPPLE THREADER BEHAVIORAL INSTRUCTOR Unavailable Franklyn Chadwick DPM Unavailable [phone] Eva Echols DO Unavailable [phone] Heidi GunnC Unavailable [phone] Sukumar Villarreal MD Unavailable [phone] Burton Duncan MD Unavailable [phone] Pat Cole APRN BEHAVIORAL INSTRUCTOR Unavailable [phone] Yohana Estes PA-C Unavailable [phone] Letha Manzanares MD Unavailable Unavailable Corby Centeno MD Unavailable [phone] Cynthia Dubon MD Unavailable [phone] Letha Manzanares MD Unavailable Unavailable Wilma Saba MD Unavailable [phone] Jeannette Jean Baptiste ANGEL Unavailable [phone] Cynthia Dubon MD Unavailable [phone] System, Provider Not In Primary Care Provider Un available Corby Centeno MD Unavailable [phone] Reason for Visit * Reason Onset Date Comments Outreach 07/06/2019 [facility] Cervical/PAP ATT 1 Encounter Details Date Type Department Care Team (Late st Contact Info) Description 07/06/2019 Telephone [facility] [address] [place] [address] Heidi Gunn PA-C [address] [place], [place] [id number] Outreach (PHS Cervical/PAP ATT 1) Social History [...] PM CDT 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 Gender Identity Female 09/29/2020 3:49 PM CDT Sexual Orientation Straight 09/29/2020 3: 49 PM CDT documented as of this encounter Miscellaneous Notes * Telephone Encounter - Shirlene Mendoza - 07/06/2019 2:32 PM CST 07/06/2019 Call Regarding Preventive Health Screening Cervical/PAP Attempt 1 Message on voicemail Comments: Outreach Welding Pantograph Machine Operator CS 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 documented in this encounter Plan of Treatment Not on file documented as of this encounter Visit Diagnoses Not on filedocumented in this encounter Additional Health Concerns Assessment Noted Time PHQ-9 Depression Total Score: 4 04/13/20 16 7:37 AM LEAD REFINER documented as of this encounter Care Teams Casting Plug Assembler Relationship Specialty Start Date End Date Heidi Gunn PA-C [address] [place] [address] PCP - General Physician Tax Compliance Manager - Medical 06/20/19 04/29/20 Clinic [facility] [address] [place] [address] PCP - General Clinic 10/03/22 07/14/23 System, Provider Not In PCP - General Clinic 07/15/23 Shirlene Amos MD [address] [facility] [place] [address] Dermatology 12/29/15 Heidi Gunn PA-C [address] [place] [address] Assigned PCP 06/24/19 05/03/20 Manju Crooks NIPPLE THREADER CNM Assigned OBGYN Provider 03/21/20 09/19/21 Zaira Queen APRN BEHAVIORAL INSTRUCTOR [address] [place] [address] Assigned PCP 05/04/20 03/07/21 Franklyn Chadwick DPM [address] [facility] [place] [address] Assigned Musculoskeletal Provider 05/18/20 11/13/21 [place] [address] [place] [address] Assigned Gastroenterology Provider 11/23/20 12/20/20 Heidi Gunn PA-C [address] [place] [address] Assigned PCP 03/08/21 05/07/22 Sukumar Villarreal MD [address] [place] [address] Assigned Musculoskeletal Provider 11/14/21 12/18/21 Burton Duncan MD [address] [place], [place] 557451 Assigned Musculoskeletal Provider 12/19/21 07/21/23 Pat Cole APRN CNP [address] [place] [address] [id number] Nurse Practitioner 01/19/22 Yohana Estes PA-C [address] [place] [address] Assigned PCP 05/08/22 06/22/23 Letha Manzanares MD [address] [place] [address] MD Anthony 03/25/23 02/15/24 Corby Centeno MD [address] [place] [address] MD [place] 03/29/23 Cynthia Dubon MD [address] [place] [address] Cardiovascular Disease 04/19/23 Letha Manzanares MD Assigned Surgical Provider 04/23/23 11/19/23 Wilam Saba MD [address] [place], [place] 514934 Assigned OBGYN Provider 04/09/23 Jeannette Jean Baptiste AUTO BODY SHOP MANAGER [address] [place] [address] 138575 Assigned PCP 06/23/23 Cynthia Dubon MD [address] [place] [address] 347575 Assigned Heart and Vascular Provider 07/01/23 Corby Centeno MD [address] [place] [address] Assigned Surgical Provider 11/20/23 documented as of this encounter
--- OUTSIDE RECORDS SUMMARY | 2024-04-03 03:46 | XMS_ITS | Encounter Summary ---
Author Organization [place] Address [address] [facility] [place] [address] Care Team Providers Care Casket Assembler Name Role Phone BetteShirlene MD Unavailable [phone] [facility] Primary Care Provider Burton Duncan MD Unavailable [phone] Pat Cole APRN COMMUNITY ENGAGEMENT SPECIALIST Unavailable [phone] Yohana Estes PA-C Unavailable [phone] Letha Manzanares MD Unavailable Unavailable Corby Centeno MD Unavailable [phone] Cynthia Dubon MD Unavailable [phone] Letha Manzanares MD Unavailable Unavailable Wilma Saba MD Unavailable [phone] Jeannette Jean Baptiste NP Unavailable [phone] Cynthia Dubon MD Unavailable [phone] System, Provider Not In Primary Care Provider Un available Corby Centeno MD Unavailable [phone] Reason for Visit * Reason Onset Date Comments Appointment 04/07/2023 IUD under anesth esia Encounter Details Date Type Department Care Team (Late st Contact Info) Description 04/07/2023 Telephone [facility] [place] [address] [place] [facility] [address] [place] [address] Wilma Saba MD [address] [place] [address] Appointment (IUD under anesthesia ) [...] PM CDT 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 Action Taken: Other: whs rn patient care Screening: Not Applicable T CLEANER documented in this encounter Plan of Treatment Not on file documented as of this encounter Visit Diagnoses Not on filedocumented in this encounter Additional Health Concerns Assessment Noted Time PHQ-9 Depression Total Score: 1 04/07/20 7:51 AM LIGHT CLEANER documented as of this encounter Care Teams Casket Assembler Relationship Specialty Start Date End Date Clinic - [address] [address] PCP - General Clinic 10/03/22 07/14/23 System, Provider Not In PCP - General Clinic 07/15/23 [place] [address] [place] [address] [place] [address] Dermatology 12/29/15 Burton Duncan MD [address] [place] [address] Assigned Musculoskeletal Provider 12/19/21 07/21/23 Pat Cole APRN COMMUNITY ENGAGEMENT SPECIALIST 909 [place] [address] Nurse Practitioner 01/19/22 Yohana Estes PA-C 290 [place] [address] Assigned PCP 05/08/22 06/22/23 Letha Manzanares MD [address] [place] [address] [place]ri[place] 03/25/23 02/15/24 Corby Centeno MD [address] [place] [address] MD Dermatology 03/29/23 Cynthia Dubon MD [address] [place] [address] [phone] Cardiovascular Disease 04/19/23 Letha Manzanares MD Assigned Surgical Provider 04/23/23 11/19/23 Wilma Saba MD [address] 208124 Assigned OBGYN Provider 04/09/23 Jeannette Jean Baptiste NP [address] [place] [address] Assigned PCP 06/23/23 Cynthia Dubon MD [address] [place] [address] 747625 Assigned Heart and Vascular Provider 07/01/23 Corby Centeno MD [address] [place] [address] 620255 Assigned Surgical Provider 11/20/23 documented as of this encounter
--- OUTSIDE RECORDS SUMMARY | 2024-04-03 03:46 | XMS_ITS | Encounter Summary ---
Author Organization [place] Address [address] [facility] [place] [address] Care Team Providers Care Multi Township Assessor Name Role Phone BetteShirlene MD Unavailable [phone] Manju Crooks WATER RESOURCES ENGINEER CNM Unavailable [facility] Primary Care Provider Zaira Queen APRN PROBATE LAWYER Unavailable Franklyn Chadwick DPM Unavailable [phone] Eva Echols DO Unavailable [phone] Heidi Gunn PA-C Unavailable [phone] Sukumar Villarreal MD Unavailable [phone] Burton Duncan MD Unavailable [phone] Pat Cole APRN PROBATE LAWYER Unavailable [phone] Yohana Estes-C Unavailable [phone] Letha Manzanares MD Unavailable Unavailable Corby Centeno MD Unavailable [phone] Cynthia Dubon MD Unavailable [phone] Letha Manzanares MD Unavailable Unavailable Wilma Saba MD Unavailable [phone] Jeannette Jean Baptiste NP Unavailable [phone] Cynthia Dubon MD Unavailable [phone] System, Provider Not In Primary Care Provider Un available Corby Centeno MD Unavailable [phone] Reason for Referral * Diagnostic Imaging CT Scan (Routine) - Closed Specialty Diagnoses / Procedures Referred By Contmoises t Referred To Contact Radiology. Diagnoses LUQ abdominal pain Procedures CT Abdomen Pelvis w Contrast Zaira Queen APRN PROBATE LAWYER Phone: tel: fax: [facility] [address] [place] [phone] Phone: tel: Referral ID Status Reason Start Date Expiration Date Visits Re quested Visits Authorized [id number] Closed 08/25/2020 08/25/2021 1 1 Encounter Details Date Type Department Care Team (Late st Contact Info) Description 08/25/2020 MyC Medical Advice [facility] [address] [facility] [address] [place] [phone] Zaira Queen APRN PROBATE LAWYER [address] [place] [address] LUQ abdominal pain (Primary Dx) Social History [...] PM CDT 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 Delaney Ibarra CMA ([facility]) * Telephone Encounter - Rylie Campbell - 08/25/2020 10:58 AM CDT Replied via [employer]. CHUCKIE Odonnell/[facility] documented in this encounter Plan of [...] study. JACE HOWARD MD Zaira Queen APRN PROBATE LAWYER IMG CT ORDERA BLES Final Result documented in this encounter Visit Diagnoses Diagnosis LUQ abdominal pain- Primary Abdominal pain, left upper quadrant LUQ abdominal pain Abdominal pain, left upper quadrant documented in this encounter Additional Health Concerns Assessment Noted Time PHQ-9 Depression Total Score: 1 08/21/19 21 7:02 AM CDT documented as of this encounter Care Teams Multi Township Assessor Relationship Specialty Start Date End Date Clinic - [facility] [address] [place] [address] PCP - General Clinic 10/03/22 07/14/23 System, Provider Not In PCP - General Clinic 07/15/23 Shirlene Amos MD [address] [facility] [address] Dermatology 12/29/15 Manju Crooks WATER RESOURCES ENGINEER CNM Assigned OBGYN Provider 03/21/20 09/19/21 Zaira Queen APRN PROBATE LAWYER [address] [place] [address] Assigned PCP 05/04/20 03/07/21 Franklyn Chadwick DPM [address] [facility] [place] [address] Assigned Musculoskeletal Provider 05/18/20 11/13/21 [place] [address] [place] [address] Assigned Gastroenterology Provider 11/23/20 12/20/20 Heidi Gunn, PAGuillermoC [address] [place] [address] Assigned PCP 03/08/21 05/07/22 Sukumar Villarreal MD [address] [place] [address] Assigned Musculoskeletal Provider 11/14/21 12/18/21 Burton Duncan MD [address] [place] [address] Assigned Musculoskeletal Provider 12/19/21 07/21/23 Pat Cole APRN CNP [address] [place] [address] Nurse Practitioner 01/19/22 Yohana Estes PA-C [address] [place] [address] Assigned PCP 05/08/22 06/22/23 Letha Manzanares MD [address] [place] [address] Ophthalmology 03/25/23 02/15/24 Corby Centeno MD [address] [place] [address] Dermatology 03/29/23 Cynthia Dubon MD [address] [place] [address] Cardiovascular Disease 04/19/23 Letha Manzanares MD Assigned Surgical Provider 04/23/23 11/19/23 Wilma Saba MD [address] [place] [address] 972844 Assigned OBGYN Provider 04/09/23 Jeannette Jean Baptiste NP [address] 825465 Assigned PCP 06/23/23 Cynthia Dubon MD 9 [place], [place] 14307455 Assigned Heart and Vascular Provider 07/01/23 Corby Centeno MD [address] [place] [address] [phone] Assigned Surgical Provider 11/20/23 documented as of this encounter
--- OUTSIDE RECORDS SUMMARY | 2024-04-03 03:47 | XMS_ITS | Encounter Summary ---
Author Organization [facility] Address [address] [facility] [place] [address] Care Team Providers Care Sole Leather Cutting Machine Operator Name Role Phone Olga Sandoval MD Primary Care Provider Shirlene Amos MD Unavailable [phone] Pat Mayorga PA-C Unavailable +[phone] [place] [address] Primary Care Provider Heidi Gunn PA-C Primary Care Provider + [phone] Heidi Gunn-C Unavailable [phone] Manju rCooks APRN CNM Unavailable [facility] Primary Care Provider Zaira Queen APRN RODDING ANODE WORKER Unavailable Franklyn Chadwick DPM Unavailable [phone] Eva Echols DO Unavailable +[phone] Heidi Gunn-C Unavailable [phone] Sukumar Villarreal MD Unavailable [phone] Burton Duncan MD Unavailable [phone] Pat Cole APRN RODDING ANODE WORKER Unavailable [phone] Yohana Estes PA-C Unavailable [phone] Letha Manzanares MD Unavailable Unavailable Corby Centeno MD Unavailable +[phone] Cynthia Dubon MD Unavailable [phone] Letha Manzanares MD Unavailable Unavailable Wilma Saba MD Unavailable [phone] Jeannette Jean Baptiste NP Unavailable [phone] Cynthia Dubon MD Unavailable [phone] System, Provider Not In Primary Care Provider Un available Corby Centeno MD Unavailable [phone] Reason for Visit * Reason Onset Date Comments Forms 08/07/2018 Encounter Details Date Type Department Care Team (Late st Contact Info) Description 08/07/[address] [place] [address] [place] [address] [facility] [address] [place], [place] [id number] Forms Social History Tobacco Use Types Packs/Day [...] PM CDT 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 Please sign and fax back Call taken on 08/07/2018 at 10:36 AM by Shirley Benoit documented in this encounter Plan of Treatment Not on file documented as of this encounter Visit Diagnoses Not on filedocumented in this encounter Additional Health Concerns Assessment Noted Time PHQ-9 Depression Total Score: 4 04/13/20 16 7:37 AM GENERALIST documented as of this encounter Care Teams Sole Leather Cutting Machine Operator Relationship Specialty Start Date End Date Olga Sandoval MD [address] [place] [address] PCP - General Family Practice 06/26/14 06/14/19 [facility] [address] [place] [address] PCP - General 06/15/19 06/19/19 Heidi Gunn PA-C [address] [place] [address] PCP - General Physician Director Hair - Medical 06/20/19 04/29/20 [facility] [address] [place] [address] PCP - General Clinic 10/03/22 07/14/23 System, Provider Not In PCP - General Clinic 07/15/23 Shirlene Amos MD [address] [place] [address] Dermatology 12/29/15 Pat Mayorga PA-C [address] [facility] [place] [address] Assigned PCP 07/02/18 06/23/19 Heidi Gunn PA-C [address] [place] [place] [address] Assigned PCP 06/24/19 05/03/20 Manju Crooks, PRIVATE PILOT CNM Assigned OBGYN Provider 03/21/20 09/19/21 Zaira Queen, PRIVATE PILOT RODDING ANODE WORKER [address] [place] [address] Assigned PCP 05/04/20 03/07/21 Franklyn Chadwick DPM [address] [facility] [place] [address] Assigned Musculoskeletal Provider 05/18/20 11/13/21 [place] [address] [place] [address] Assigned Gastroenterology Provider 11/23/20 12/20/20 Heidi Gunn PA-C [address] [place] [address] Assigned PCP 03/08/21 05/07/22 Sukumar Villarreal MD [address] [place] [address] Assigned Musculoskeletal Provider 11/14/21 12/18/21 Burton Duncan MD [address] [place] [address] Assigned Musculoskeletal Provider 12/19/21 07/21/23 Pat Cole APRN RODDING ANODE WORKER [address] [place] [address] 658495 Nurse Practitioner 01/19/22 Yohana Estes PA-C [address] [place], [place] 758400 Assigned PCP 05/08/22 06/22/23 Letha Manzanares MD [address] [place] [address] Ophthalmology 03/25/23 02/15/24 Corby Centeno MD [address] [place] [address] 889075 Dermatology 03/29/23 Cynthia Dubon MD [address] [place] [address] 519355 Cardiovascular Disease 04/19/23 Letha Manzanares MD Assigned Surgical Provider 04/23/23 11/19/23 Wilma Saba MD [address] [place] [address] [phone] Assigned OBGYN Provider 04/09/23 Jeannette Jean Baptiste, BALE COVERER [address] [address] Assigned PCP 06/23/23 Cynthia Dubon MD [address] [place] [address] 746165 Assigned Heart and Vascular Provider 07/01/23 Corby Centeno MD [address] [place] [address] Assigned Surgical Provider 11/20/23 documented as of this encounter
--- OUTSIDE RECORDS SUMMARY | 2024-04-03 03:47 | XMS_ITS | Encounter Summary ---
Author Organization [facility] Address [address] [facility] [place] [address] Care Team Providers Care Workplace Relations Adviser Name Role Phone Olga Sandoval MD Primary Care Provider [phone] Shirlene Amos MD Unavailable [phone] Pat Mayorga PA-C Unavailable +[phone] Pat Mayorga PA-C Unavailable [phone] Primary Care Provider Heidi Gunn-C Primary Care Provider + [phone] Heidi Gunn PA-C Unavailable [phone] Manju Crooks APRN CNM Unavailable [facility] Primary Care Provider Zaira Queen APRN SHELF STOCKER Unavailable Franklyn Chadwick DPM Unavailable [phone] Eva Echols DO Unavailable [phone] Heidi Gunn Edis STARKEYC Unavailable [phone] Sukumar Villarreal MD Unavailable [phone] Burton Duncan MD Unavailable [phone] Pat Cole APRN SHELF STOCKER Unavailable [phone] Yohana EstesC Unavailable [phone] Letha Manzanares MD Unavailable Unavailable Corby Centeno MD Unavailable [phone] Cynthia Dubon MD Unavailable [phone] Letha Manzanares MD Unavailable Unavailable Wilma Saba MD Unavailable [phone] Jeannette Jean Baptiste NP Unavailable [phone] Cynthia Dubon MD Unavailable [phone] System, Provider Not In Primary Care Provider Un available Corby Centeno MD Unavailable [phone] Reason for Visit * Reason Onset Date Comments Patient Request for Note/Letter 07/06/2018 Encounter Details Date Type Department Care Team (Late st Contact Info) Description 07/06/[address] [place] [address] [place] [address] [address] Patient Request for Note/Letter Social [...] PM CDT Legal Sex Female 4:01 AM CURTAIN INSPECTOR Gender Identity Female 09/29/2020 3:49 PM CDT Sexual Orientation Straight 09/29/2020 3: 49 PM CDT documented as of this encounter Miscellaneous Notes * Telephone Encounter - Melanie Squires - 07/07/2018 8:34 AM CST Updated work letter and faxed to [phone] scooter Junior AIN INSPECTOR * Telephone Encounter - Yuliana Elizabeth - 07/06/2018 5:42 PM CST Pt calling for a note stating that it is ok for her to return to work with no restrictions starting07/07/18. Please fax this to [phone] attyessy junior. Please call pt with any questions. thanks AIN INSPECTOR documented in this encounter Plan of Treatment Not on file documented as of this encounter Visit Diagnoses Not on filedocumented in this encounter Additional Health Concerns Assessment Noted Time PHQ-9 Depression Total Score: 4 04/13/20 16 7:37 AM CURTAIN INSPECTOR documented as of this encounter Care Teams Workplace Relations Adviser Relationship Specialty Start Date End Date Olga Sandoval MD [address] [place] [address] PCP - General Family Practice 06/26/14 06/14/19 Pat Mayorga PA-C [address] [facility] [place] [address] PCP - Assigned PCP 07/02/18 08/01/18 [facility] [address] [place] [address] PCP - General 06/15/19 06/19/19 Heidi Gunn PA-C [address] [place] [address] PCP - General Physician Fruit Trimmer - Medical 06/20/19 04/29/20 [facility] - [facility] [address] [place] [address] PCP - General Clinic 10/03/22 07/14/23 System, Provider Not In PCP - General Clinic 07/15/23 Shirlene Amos MD [address] [facility] [place] [address] Dermatology 12/29/15 Pat Mayorga PA-C [address] [facility] [place] [address] Assigned PCP 07/02/18 06/23/19 Heidi Gunn PA-C [address] [place] [address] Assigned PCP 06/24/19 05/03/20 Manju Crooks APRN CNM Assigned OBGYN Provider 03/21/20 09/19/21 Zaira Queen APRN SHELF STOCKER [address] [place] [address] Assigned PCP 05/04/20 03/07/21 Franklyn Chadwick DPM [address] [facility] [place] [address] Assigned Musculoskeletal Provider 05/18/20 11/13/21 [place] [address] [place] [address] Assigned Gastroenterology Provider 11/23/20 12/20/20 Heidi Gunn PA-C [address] [place] [address] Assigned PCP 03/08/21 05/07/22 Sukumar Villarreal MD [address] [place] [address] Assigned Musculoskeletal Provider 11/14/21 12/18/21 Burton Duncan MD [address] [place] [address] 110651 Assigned Musculoskeletal Provider 12/19/21 07/21/23 Pat Cole APRN SHELF STOCKER [address] [place] [address] [id number] Nurse Practitioner 01/19/22 Yohana Estes PA-C [address] [place], [place] 0[address] Assigned PCP 05/08/22 06/22/23 Letha Manzanares MD [address] [place] [address] Ophthalmology 03/25/23 02/15/24 Corby Centeno MD [address] [place] [address] 969295 Dermatology 03/29/23 Cynthia Dubon MD [address] [place] [address] 293125 Cardiovascular Disease 04/19/23 Letha Manzanares MD Assigned Surgical Provider 04/23/23 11/19/23 Wilma Saba MD [address] [place] [address] [place] [address] Assigned OBGYN Provider 04/09/23 Jeannette Jean Baptiste NP [address] [address] Assigned PCP 06/23/23 Cynthia Dubon MD [address] [place] [address] [phone] Assigned Heart and Vascular Provider 07/01/23 Corby Centeno MD [address] [place] [address] [id number] Assigned Surgical Provider 11/20/23 documented as of this encounter
== END 2024-03-30 14:09 | disposition home or self-care (01) ==
LOC: AMB 04-03 03:43
PROVIDERS: PCP Family Medicine; Visit Provider Emergency Medicine
DX: R51.9 Headache, unspecified (principal)
CPT/HCPCS: A0425; A0427

== ENCOUNTER 2024-03-30 14:31 | Emergency (ER) | payer MEDICAID, SELFPAY ==
[2024-03-30] VITALS (13 sets, daily range): BP systolic 96–109; BP diastolic 63–75; PULSE 61–93; RESP 16–18; TEMP 36.8; O2SAT 96–100; BMI 35.9
[2024-03-30 15:09] LABS: Appearance Urine Clear (Clear); Bilirubin Urine Negative (Negative); Blood Urine 3+ (Negative); Color Urine Yellow (Yellow); Glucose Urine Negative (Negative); Ketones Urine Negative (Negative); Leukocyte Esterase Urine Trace (Negative); Nitrite Urine Negative (Negative); Protein Urine Trace (Negative); Specific Gravity Urine >= 1.030 (1.000-1.030)
--- NOTE | 2024-03-30 15:10 | ED.GENADULT ---
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 Denies ever having symptoms like this before. States she ran out propanolol 3 or 4 days ago so has not had any in that time frame. She has prescription at [facility] but she can mixing picker tender today. States she has gone a day or 2 without her propranolol before without having any symptoms. States her headache feels like a band around her head and she is also feeling dehydrated. Denies chest pain, shortness of breath, vision changes, abdominal pain, nausea/vomiting, diarrhea, constipation, weakness, numbness. Denies any current drug use. Denies any recent head injuries. States she is typically treated for Graves disease at the [facility]. No other concerns noted at this time Related Data Home Medications ?Medication ?Instructions ?Recorded ?Confirmed fluticasone 100 mcg-salmeterol 50 1 ea inhalation Q12H 05/14/23 02/20/24 mcg/dose blistr powdr for inhalation (Advair Diskus) clonidine HCl 0.3 mg tablet 0.3 mg PO TID PRN 06/01/23 02/20/24 epinephrine 0.3 mg/0.3 mL 0.3 mg IM ONCE PRN 06/01/23 02/20/24 injection, auto-injector TAB-A-NIKKI 08/07/23 02/20/24 levocetirizine 5 mg tablet 5 mg PO QAM 11/16/23 02/20/24 acetaminophen 500 mg tablet mg PO PRN 02/20/24 02/20/24 albuterol sulfate 90 mcg/actuation inhalation PRN 02/20/24 02/20/24 aerosol inhaler (Ventolin HFA) atomoxetine 100 mg capsule 100 mg PO QAM 02/20/24 02/20/24 budesonide-formoterol HFA 160 2 puff inhalation BID PRN 02/20/24 02/20/24 mcg-4.5 mcg/actuation aerosol inhaler (Symbicort) clonidine HCl 0.1 mg tablet 0.1 mg PO BID 02/20/24 02/20/24 emollient (Vanicream topical) 1 applic topical BID PRN 02/20/24 02/20/24 hydrocortisone 1 % topical ointment topical PRN 02/20/24 02/20/24 ibuprofen 800 mg tablet mg PO PRN 02/20/24 02/20/24 lidocaine 4 % topical patch patch topical PRN 02/20/24 02/20/24 (Lidocaine Pain Relief) methimazole 5 mg tablet 15 mg PO DAILY 02/20/24 02/20/24 polyethylene glycol 3350 17 17 g PO DAILY PRN 02/20/24 02/20/24 gram/dose oral powder topiramate 50 mg tablet 50 mg PO DAILY 02/20/24 02/20/24 Previous Rx's ?Medication ?Instructions ?Recorded blood pressure monitor #1 ea 06/01/23 hydrochlorothiazide 12.5 mg tablet 12.5 mg PO DAILY #90 tabs 06/01/23 omeprazole 40 mg capsule,delayed 40 mg PO DAILY #90 caps 06/01/23 release prazosin 1 mg capsule 1 mg PO QHS #90 caps 06/01/23 prazosin 2 mg capsule 2 mg PO QPM #90 caps 06/01/23 loperamide 2 mg capsule 2 mg PO Q6H PRN loose stool #30 06/12/23 (Anti-Diarrheal (loperamide)) caps cholecalciferol (vitamin D3) 50 50 mcg PO DAILY #90 caps 08/04/23 mcg (2,000 unit) capsule multivitamin with folic acid 400 1 tab PO DAILY #90 tabs 08/04/23 mcg tablet (Tab-A-Nikki) propranolol 20 mg tablet 20 mg PO TID #120 tabs 08/04/23 trazodone 100 mg tablet 200 mg (2 x 100 mg) PO QDAY #180 08/04/23 tabs ondansetron 4 mg disintegrating 4 mg PO Q6H PRN nausea and 02/20/24 tablet vomiting #20 tabs Allergies Allergy/AdvReac Type Severity Reaction Status Date / Time mold Allergy Severe Anaphylaxis Verified 02/20/24 15:47 almond Allergy Mild Hives Verified 02/20/24 15:47 loratadine (From Claritin) Allergy Mild Hives Verified 02/20/24 15:47 sumatriptan (From Imitrex) Allergy Mild Hives Verified 02/20/24 15:47 morphine AdvReac Mild Palpitation Verified 02/20/24 15:47 s Review of Systems Status of ROS: Reports: 10 or more systems reviewed and unremarkable except as noted in History and below [facility] Lower extremity edema ?R60.0 - Localized edema (ICD-10) Chronic pain ?G89.29 - Other chronic pain (ICD-10) Endometriosis ?N80.9 - Endometriosis, unspecified (ICD-10) Fatty liver ?K76.0 - Fatty (change of) liver, not elsewhere classified (ICD-10) 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 - Other stimulant abuse, in remission (ICD-10) Irregular menses ?N92.6 - Irregular menstruation, unspecified (ICD-10) Uterine fibroid ?D25.9 - Leiomyoma of uterus, unspecified (ICD-10) Thyroid nodule ?E04.1 - Nontoxic single thyroid nodule (ICD-10) Intermittent asthma ?J45.20 - Mild intermittent asthma, uncomplicated (ICD-10) GERD (gastroesophageal reflux disease) ?K21.9 - Gastro-esophageal reflux disease without esophagitis (ICD-10) Chronic constipation ?K59.09 - Other constipation (ICD-10) History of abnormal cervical Pap smear ?Z87.42 - Personal history of other diseases of the female genital tract (ICD-10) Anxiety ?F41.9 - Anxiety disorder, unspecified (ICD-10) Surgical History History of ovarian cystectomy (2001) ?Z98.890 - Other specified postprocedural states (ICD-10) ?Z87.42 - Personal history of other diseases of the female genital tract (ICD-10) History of cryosurgery (2000) ?Z98.890 - Other specified postprocedural states (ICD-10) History of appendectomy (2007) ?Z90.49 - Acquired absence of other specified parts of digestive tract (ICD-10) History of laparoscopic cholecystectomy (2014) ?Z90.49 - Acquired absence of other specified parts of digestive tract (ICD-10) History of esophagogastroduodenoscopy (EGD) (2020) ?Z98.890 - Other specified postprocedural states (ICD-10) History of open reduction and internal fixation (ORIF) procedure (2021) ?Z98.890 - Other specified postprocedural states (ICD-10) History of colonoscopy (2013) ?Z98.890 - Other specified postprocedural states (ICD-10) Family History Mother Heart failure Asthma Depression Father Heart failure Paternal Grandfather Liver disease Family/Other Breast cancer Social History Narrative: Single, living in sober recovery house in [place], not working, no children Smokes half a pack a day, 20 pack years No alcohol or methamphetamine since January 2023 Exercise twice a week walking What is your current living situation?: I presently have a place to live Problems where you live: no known problems Problems where you live details: Lives in sober living facility. No known problems In the past 12 months, utilities in danger of being shut off: no In past 12 months, lack of transportation kept you from medical appts, meetings, work, or getting things needed for daily living: no In the past 12 mos, have been you worried that your food would run out before you had money to buy more?: never true In the past 12 mos, the food you bought just didn't last and you didn't have money to buy more?: never true Highest level of school completed/degree received: high school graduate Smoking Status: Current every day smoker Do you use any of these nicotine containing products: Vaping Products Second hand tobacco smoke exposure: No How often do you have a drink containing alcohol: never How often do you have six or more drinks on one occasion: Never AUDIT-C Alcohol total score: 0 Non-prescribed substance use: former substance user and amphetamines/methamphetamines Caffeine: Yes How often does anyone, including family, friends and others, physically hurt you: never How often does anyone, including family, friends and others, insult or talk down to you: never How often does anyone, including family, friends and others, threaten you with harm: never How often does anyone, including family, friends and others, scream or curse at you: never Little interest or pleasure in doing things: not at all Feeling down, depressed, or hopeless: not at all service: No Exam Const: Vital Signs, click to edit/add: Vital Signs - 24 hr 03/30/24 14:37 03/30/24 15:12 03/30/24 15:15 Temperature 98.2 F Pulse Rate 77 77 Pulse Rate [Right Pulse Oximeter] 86 Respiratory Rate 18 Blood Pressure Blood Pressure [Ri ght Upper Arm] 109/75 Pulse Oximetry 97 96 97 Oxygen Delivery Me thod Room Air 03/30/24 15:30 03/30/24 15:42 03/30/24 15:45 Temperature Pulse Rate 69 87 93 Pulse Rate [Right Pulse Oximeter] Respiratory Rate 16 Blood Pressure 109/68 Blood Pressure [Ri ght Upper Arm] Pulse Oximetry 97 97 96 Oxygen Delivery Me thod Room Air 03/30/24 16:00 03/30/24 16:02 03/30/24 16:15 Temperature Pulse Rate 81 78 61 Pulse Rate [Right Pulse Oximeter] Respiratory Rate 16 Blood Pressure 103/67 Blood Pressure [Ri ght Upper Arm] Pulse Oximetry 98 96 96 Oxygen Delivery Me thod Room Air Course Vital Signs Vital signs: Initial Vital Signs Temperature 98.2 F 03/30/24 14:37 Temperature Source Temporal Artery Scan 03/30/24 14:37 Pulse Rate 86 03/30/24 14:37 Respiratory Rate 18 03/30/24 14:37 Blood Pressure 109/75 03/30/24 14:37 Blood Pressure Mean 86 03/30/24 14:37 Blood Pressure Position Sitting 03/30/24 14:37 Pulse Oximetry 97 03/30/24 14:37 Oxygen Delivery Method Room Air 03/30/24 14:37 Vital Signs Temperature 98.2 F 03/30/24 14:37 Pulse Rate 86 03/30/24 14:37 Respiratory Rate 18 03/30/24 14:37 Blood Pressure 109/75 03/30/24 14:37 Pulse Oximetry 97 03/30/24 14:37 Oxygen Delivery Method Room Air 03/30/24 14:37 Temperature 98.2 F 03/30/24 14:37 Pulse Rate 61 03/30/24 16:15 Respiratory Rate 16 03/30/24 16:02 Blood Pressure 103/67 03/30/24 16:02 Pulse Oximetry 96 03/30/24 16:15 Oxygen Delivery Method Room Air 03/30/24 16:02 Medications Administered Medications: Discontinued Medications Generic Name Dose Route Start Last Admin Trade Name Dimitrios PRN Reason Stop Dose Admin Diphenhydramine HCl 25 mg 03/30/24 14:49 03/30/24 15:28 Diphenhydramine 50 Mg/Ml Inj IVP 03/30/24 14:50 25 mg ONCE ONE Administration Diphenhydramine HCl 25 mg 03/30/24 15:47 03/30/24 15:52 Diphenhydramine 50 Mg/Ml Inj IVP 03/30/24 15:48 25 mg ONCE ONE Administration Sodium Chloride 1,000 mls @ 1,000 mls/hr 03/30/24 15:00 03/30/24 15:29 0.9 % Sodium Chloride 1000 Ml IV 03/30/24 15:59 1,000 mls/hr .Q1H CHRISTOPHER Administration Ketorolac Tromethamine 15 mg 03/30/24 14:49 03/30/24 15:28 Ketorolac 15 Mg/Ml Inj IVP 03/30/24 14:50 15 mg ONCE ONE Administration Metoclopramide HCl 10 mg 03/30/24 14:49 03/30/24 15:29 Metoclopramide Hcl 5 Mg/Ml Inj IVP 03/30/24 14:50 10 mg ONCE ONE Administration Propranolol HCl 20 mg 03/30/24 15:04 03/30/24 15:40 Propranolol 20 Mg Tablet PO 03/30/24 15:05 20 mg ONCE ONE Administration Medical Decision Making [facility] Narrative Medical decision making narrative: Patient is a 43-year-old female presenting for multiple complaints. Based on not having her propranolol for a few days this is likely withdrawal symptoms from that. Will do CBC and BMP to look for signs of electrolyte or infection. Also do urinalysis and urine drug screen. Will check her TSH for signs of thyroid storm. Will also do a troponin an EKG as she did have some mild chest pain that has since resolved. Chest pain seems unlikely to be related to PE, aortic dissection, aortic aneurysm due to her otherwise stable appearance. She is having a headache which based on description is a tension-type headache. I do not believe the imaging is necessary will will give her a migraine cocktail. Did give her dose of propranolol Lab work all returned showing no concerning abnormalities. She is getting very fidgety after the Reglan and I dose of Benadryl was given. After this she is feeling much better. She was able to eat she feels like her symptoms are resolved at this time. EKG and troponin showed no concerning findings. Do not believe is necessary to repeat troponin at this time. She states she is able to mixing picker tender her prescription. Will discharge her and my working diagnosis is the propranolol withdrawal. Lab Data Labs: Lab Results 03/30/24 03/30/24 03/30/24 Range/Units 14:50 15:03 15:15 WBC 6.42 (4.50-11.00) K/uL RBC 4.80 (4.00-5.20) m/uL Hgb 14.1 (12.0-16.0) gm/dL Hct 42.5 (33.0-51.0) % MCV 89 (80-100) fL MCH 29 (26-34) pg MCHC 33 (32-36) gm/dL RDW Coeff of Kenzie 11.8 (11.5-15.5) % Plt Count 304 (140-440) K/uL Neut % (Auto) 62.1 (42.0-72.0) % Lymph % (Auto) 29.3 (20-44) % Hamilton % (Auto) 5.5 (0.0-11.0) % Eos % (Auto) 2.2 (0.0-7.0) % Baso % (Auto) 0.3 (0.0-3.0) % Neut # (Auto) 3.99 (1.7-7.0) K/uL Lymph # (Auto) 1.88 (0.90-2.90) K/uL Hamilton # (Auto) 0.40 (0.00-0.90) K/UL Eos # (Auto) 0.14 (0.00-0.50) K/uL Baso # (Auto) 0.02 (0.00-0.30) K/uL Abs Immat Gran (auto) 0.04 (0.00-0.30) K/uL Imm/Tot Granulo (auto) 0.6 % Sodium 136 (135-149) mmol/L Potassium 3.2 L (3.6-5.1) mmol/L Chloride 103 (96-114) mmol/L Carbon Dioxide 25 (20-32) mmol/L Anion Gap 8 (7-15) mEq/L BUN 12 (5-24) mg/dL Creatinine 0.9 (0.5-1.5) mg/dL Estimated Creat Clear 73.27 Estimated GFR 82 ml/min Glucose 108 (60-115) mg/dL Calcium 9.0 (8.4-10.6) mg/dL Magnesium 2.3 (1.5-2.6) mg/dL TSH 1.420 (0.270-4.200) uIU/mL Urine Color Yellow (Yellow) Urine Appearance Clear (Clear) Urine pH 6.0 (5.0-8.5) Ur Specific [place] >= 1.030 (1.000-1.030) Urine Protein Trace A (Negative) Urine Glucose (UA) Negative (Negative) Urine Ketones Negative (Negative) Urine Blood 3+ A (Negative) Urine Nitrite Negative (Negative) Urine Bilirubin Negative (Negative) Urine Urobilinogen 1.0 (0.2-1.0) Ur Leukocyte Esterase Trace A (Negative) Urine RBC 10-25 A (0-2) Urine WBC 25-50 A (0-5) Ur Squamous Epith Cells Many A (None-Few) Urine Bacteria Moderate A (None) Urine HCG, Qual Negative (Negative) Urine Opiates Screen Negative (Negative) Ur Oxycodone Screen Negative (Negative) Urine Methadone Screen Negative (Negative) Ur Barbiturates Screen Negative (Negative) U Tricyclic Antidepress Negative (Negative) Ur Phencyclidine Scrn Negative (Negative) Ur Amphetamines Screen Negative (Negative) U Methamphetamines Scrn Negative (Negative) U Benzodiazepines Scrn Negative (Negative) Urine Cocaine Screen Negative (Negative) U Marijuana (THC) Screen Negative (Negative) Ur Drug Screen Comment See Note Lab Acknowledgement POC Troponin I 0.00 L (0.01-0.04) ng/ml 03/30/24 Range/Units 15:18 WBC (4.50-11.00) K/uL RBC (4.00-5.20) m/uL Hgb (12.0-16.0) gm/dL Hct (33.0-51.0) % MCV (80-100) fL MCH (26-34) pg MCHC (32-36) gm/dL RDW Coeff of Kenzie (11.5-15.5) % Plt Count (140-440) K/uL Neut % (Auto) (42.0-72.0) % Lymph % (Auto) (20-44) % Hamilton % (Auto) (0.0-11.0) % Eos % (Auto) (0.0-7.0) % Baso % (Auto) (0.0-3.0) % Neut # (Auto) (1.7-7.0) K/uL Lymph # (Auto) (0.90-2.90) K/uL Hamilton # (Auto) (0.00-0.90) K/UL Eos # (Auto) (0.00-0.50) K/uL Baso # (Auto) (0.00-0.30) K/uL Abs Immat Gran (auto) (0.00-0.30) K/uL Imm/Tot Granulo (auto) % Sodium (135-149) mmol/L Potassium (3.6-5.1) mmol/L Chloride (96-114) mmol/L Carbon Dioxide (20-32) mmol/L Anion Gap (7-15) mEq/L BUN (5-24) mg/dL Creatinine (0.5-1.5) mg/dL Estimated Creat Clear Estimated GFR ml/min Glucose (60-115) mg/dL Calcium (8.4-10.6) mg/dL Magnesium (1.5-2.6) mg/dL TSH (0.270-4.200) uIU/mL Urine Color (Yellow) Urine Appearance (Clear) Urine pH (5.0-8.5) Ur Specific [place] (1.000-1.030) Urine Protein (Negative) Urine Glucose (UA) (Negative) Urine Ketones (Negative) Urine Blood (Negative) Urine Nitrite (Negative) Urine Bilirubin (Negative) Urine Urobilinogen (0.2-1.0) Ur Leukocyte Esterase (Negative) Urine RBC (0-2) Urine WBC (0-5) Ur Squamous Epith Cells (None-Few) Urine Bacteria (None) Urine HCG, Qual (Negative) Urine Opiates Screen (Negative) Ur Oxycodone Screen (Negative) Urine Methadone Screen (Negative) Ur Barbiturates Screen (Negative) U Tricyclic Antidepress (Negative) Ur Phencyclidine Scrn (Negative) Ur Amphetamines Screen (Negative) U Methamphetamines Scrn (Negative) U Benzodiazepines Scrn (Negative) Urine Cocaine Screen (Negative) U Marijuana (THC) Screen (Negative) Ur Drug Screen Comment Lab Acknowledgement Test Added POC Troponin I (0.01-0.04) ng/ml ECG Data Attestation: I personally reviewed and interpreted this ECG as follows: Prior ECG tracings: available for review Interpretation: Normal sinus rhythm with a flow rate of 72 beats per minute, normal intervals, normal axis, no ST or T-wave abnormalities. Appears similar previous EKG on file Discharge Plan Discharge Clinical Impression: Headache Qualifiers: Headache type: unspecified Headache chronicity pattern: acute headache Intractability: not intractable Qualified Code(s): R51.9 - Headache, unspecified Instructions: Acute Headache (DC) Additional Instructions: I believe your symptoms were from your propranolol withdrawal. Make sure you take up your prescription as soon as he can. Return should had department for new or worsening symptoms Prescriptions: No Action atomoxetine 100 mg capsule 100 mg PO QAM topiramate 50 mg tablet 50 mg PO DAILY clonidine HCl 0.1 mg tablet 0.1 mg PO BID emollient [Vanicream] Cream 1 applic topical BID PRN budesonide-formoterol [Symbicort] 160-4.5 mcg/actuation HFA aerosol inhaler 2 puff inhalation BID PRN acetaminophen 500 mg tablet PO PRN ibuprofen 800 mg tablet PO PRN hydrocortisone 1 % ointment topical PRN lidocaine [Lidocaine Pain Relief] 4 % adhesive patch,medicated topical PRN ondansetron 4 mg tablet,disintegrating 4 mg PO Q6H PRN (Reason: nausea and vomiting) Qty: 20 0RF clonidine HCl 0.3 mg tablet 0.3 mg PO TID PRN epinephrine 0.3 mg/0.3 mL auto-injector 0.3 mg IM ONCE PRN Rx Instructions: as a single dose; may repeat once omeprazole 40 mg capsule,delayed release(DR/EC) 40 mg PO DAILY Qty: 90 3RF prazosin 1 mg capsule 1 mg PO QHS Qty: 90 1RF prazosin 2 mg capsule 2 mg PO QPM Qty: 90 1RF hydrochlorothiazide 12.5 mg tablet 12.5 mg PO DAILY Qty: 90 3RF loperamide [Anti-Diarrheal (loperamide)] 2 mg capsule 2 mg PO Q6H PRN (Reason: loose stool) Qty: 30 0RF TAB-A-NIKKI methimazole 5 mg tablet 15 mg PO DAILY levocetirizine 5 mg tablet 5 mg PO QAM fluticasone propion-salmeterol [Advair Diskus] 100-50 mcg/dose blister with device 1 ea INHALATION Q12H albuterol sulfate [Ventolin HFA] 90 mcg/actuation HFA aerosol inhaler inhalation PRN polyethylene glycol 3350 17 gram/dose powder 17 g PO DAILY PRN (DME) blood pressure monitor Kit See Rx Instructions .Route Qty: 1 0RF Rx Instructions: As directed propranolol 20 mg tablet 20 mg PO TID Qty: 120 0RF Rx Instructions: may add one additional dose if HR is >120. Wait at least 1 hour between doses. trazodone 100 mg tablet 200 mg PO QDAY Qty: 180 0RF multivitamin with folic acid [Tab-A-Nikki] 400 mcg tablet 1 tab PO DAILY Qty: 90 3RF cholecalciferol (vitamin D3) 50 mcg (2,000 unit) capsule 50 mcg PO DAILY Qty: 90 0RF Follow Up/Referrals: Tahmina Gandhi MD [Primary Care Provider] - [facility]
[2024-03-30 15:13] LABS: Ur HCG Qualitative* Negative (Negative)
[2024-03-30] MEDS: diphenhydrAMINE 50 MG/ML inj 25 MG IVP ×2 (15:28→15:52)
[2024-03-30] MEDS: KETOROLAC 15 MG/ML inj IVP (15:28)
[2024-03-30] MEDS: 0.9 % SODIUM CHLORIDE 1000 ml 1,000 ML IV (15:29)
[2024-03-30] MEDS: METOCLOPRAMIDE HCL 5 MG/ML INJ 10 MG IVP (15:29)
[2024-03-30 15:37] LABS: Chloride* 103 mmol/L (96-114); Potassium* 3.2 mmol/L (3.6-5.1); Sodium* 136 mmol/L (135-149)
[2024-03-30 15:37] LABS: Amphetamine Screen Urine Negative (Negative); Barbiturate Screen Urine Negative (Negative); Benzodiazepines Screen Urine Negative (Negative); Cannabinoid Screen Urine Negative (Negative); Cocaine Screen Urine Negative (Negative); Methadone Screen Urine Negative (Negative); Methamphetamines Screen Urine Negative (Negative); Opiate Screen Urine Negative (Negative); Oxycodone Screen Urine Negative (Negative); Phencyclidine Screen Urine Negative (Negative); Tricyclic Antidepressant Urine Negative (Negative)
[2024-03-30 15:40] LABS: Anion Gap 8 mEq/L (7-15); Carbon Dioxide* 25 mmol/L (20-32); Creatinine* 0.9 mg/dL (0.5-1.5); Est. Creatinine Clearance* 73.27; Estimated Glomerular Filt Rate 82 ml/min
[2024-03-30] MEDS: PROPRANOLOL 20 MG TABLET PO (15:40)
[2024-03-30 15:41] LABS: Blood Urea Nitrogen* 12 mg/dL (5-24); Glucose* 108 mg/dL (60-115); Magnesium* 2.3 mg/dL (1.5-2.6)
[2024-03-30 15:46] LABS: Basophils Absolute Auto 0.02 K/uL (0.00-0.30); Basophils Percent Auto 0.3 % (0.0-3.0); Eosinophils Absolute Auto 0.14 K/uL (0.00-0.50); Eosinophils Percent Auto 2.2 % (0.0-7.0); Hematocrit 42.5 % (33.0-51.0); Hemoglobin* 14.1 gm/dL (12.0-16.0); Immature Granulocytes Abs Auto 0.04 K/uL (0.00-0.30); Immature Granulocytes Pct Auto 0.6 %; Lymphocytes Absolute Auto 1.88 K/uL (0.90-2.90); Lymphocytes Percent Auto 29.3 % (20-44); Mean Corpuscular HGB Conc 33 gm/dL (32-36); Mean Corpuscular Hemoglobin 29 pg (26-34); Mean Corpuscular Volume 89 fL (80-100); Monocytes Percent Auto 5.5 % (0.0-11.0); Neutrophils Absolute Auto 3.99 K/uL (1.7-7.0); Neutrophils Percent Auto 62.1 % (42.0-72.0); Platelet Count* 304 K/uL (140-440); RDW Coefficient of Variation % 11.8 % (11.5-15.5); White Blood Count* 6.42 K/uL (4.50-11.00)
[2024-03-30 15:47] LABS: Slide Review Reflex No
[2024-03-30 15:49] LABS: Bacteria Urine Moderate; Squamous Epithelial Cell Urine Many (None-Few); WBC Urine 25-50 (0-5)
--- OUTSIDE RECORDS SUMMARY | 2024-03-30 16:09 | XMS_ITS | Encounter Summary ---
Author Organization [facility] Address [address] [place] [address] Care Team Providers Care Sea Foam Kiss Maker Name Role Phone Shirlene Amos MD Unavailable [phone] Pat Cole APRN [employer] SPECIALIST Unavailable [phone] Letha Manzanares MD Unavailable Unavailable Corby Centeno MD Unavailable [phone] Cynthia Dubon MD Unavailable [phone] Letha Manzanares MD Unavailable Unavailable Wilma Saba MD Unavailable [phone] Jeannette Jean Baptiste NP Unavailable [phone] Cynthia Dubon MD Unavailable [phone] System, Provider Not In Primary Care Provider Un available Corby Centeno MD Unavailable [phone] Encounter Details Date Type Department Care Team (Late st Contact Info) Description 10/14/2023 [facility] [address] [place] [address] [facility] Social History Tobacco Use Types Packs/Day Years [...] getting things that you need? 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 documented as of this encounter Care Teams Sea Foam Kiss Maker Relationship Specialty Start Date End Date System, Provider Not In PCP - General Clinic 07/15/23 Shirlene Amos MD [address] [place] [address] Dermatology 12/29/15 Pat Cole APRN [employer] SPECIALIST [address] [place] [address] [id number] Nurse Practitioner 01/19/22 Letha Manzanares MD [address] [place] [address] [id number] Ophthalmology 03/25/23 02/15/24 Corby Centeno MD [address] [place] [address] [id number] Dermatology 03/29/23 Cynthia Dubon MD [address] [place] [address] [phone] Cardiovascular Disease 04/19/23 Letha Manzanares MD Assigned Surgical Provider 04/23/23 11/19/23 Wilma Saba MD [address] [place] [address] [id number] Assigned OBGYN Provider 04/09/23 Jeannette Jean Baptiste NP [address] [place] [address] [id number] Assigned PCP 06/23/23 Cynthia Dubon MD [address] [place] [address] [id number] Assigned Heart and Vascular Provider 07/01/23 Corby Centeno MD [address] [place] [address] [id number] Assigned Surgical Provider 11/20/23 documented as of this encounter
--- OUTSIDE RECORDS SUMMARY | 2024-03-30 16:09 | XMS_ITS | Encounter Summary ---
Author Organization [facility] Address [address] [place] [address] Care Team Providers Care Intranet Support Name Role Phone Unavailable Primary Care Provider Unavailabl e Reason for Referral * Outpatient (Routine) - Authorized Specialty Diagnoses / Procedures Referred By Sasha t Referred To Contact Endocrinology Diagnoses Hyperthyroidism Minerva Mast M.D. [address] [place] [phone] Phone: tel: fax: [facility] Referral ID Status Reason Start Date Expiration Date V isits Requested Visits Authorized [id number] Authorized 02/01/2024 08/02/2025 1 1 Scheduling Instructions Can be seen by Dr. Mast or ANNY Encounter Details Date Type Department Care Team (Latest Contact Info) Description 02/01/2024 Clinical Communication Division of Endocrinology in [place], [place] [address] [place] [phone] Minerva Mast M.D. [address] [place] [phone] Social History Tobacco Use Types Packs/Day Years Used Date Smoking Tobacco: Former Cigarettes Passive Smoke Exposure: Current Smokeless Tobacco: Never [facility] Utilities Answer Date Recorded In the [...] your living situation today? 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 - 02/01/2024 10:30 AM CDT SUBJECTIVE CHIEF COMPLAINT / REASON FOR CALL No chief complaint on file. Information Discussed Discussed with Natalie that I reviewed with Dr. Mast. Informed her methimazole prescription was sent to her pharmacy. She should restart it. In 3 months she should return to have lab work rechecked andto meet with Dr. Mast or our nurse practitioner to review labs and discuss a plan moving forward. Informed her she could also schedule her endocrine surgeon consult at this time so she could get herquestions answered as well. She prefers and in person appointment at this time but is away Dr. Mast is ok with a video visit if she needs this. Discussed the importance of the follow up visit to monitor how the methimazole is working and discuss a plan for her Graves again. Informed her should shechange her mind about things that it is important that she keep us in the loop so we can ensure proper follow up care is set up and no gaps in her medication happen. She verbalized understanding. PLAN Disposition/Recommendation: self-care is appropriate at this time, patient encouraged to call back with questions Information/Education: patient/caller able to teach back Caller agreeable to plan of care: yes The following references were used: nursing clinical judgement and provider Dr. Minerva Mast * Telephone Encounter - Emma Gamez R.N. - 02/01/2024 9:15 AM CDT SUBJECTIVE CHIEF COMPLAINT / REASON FOR CALL No chief complaint on file. Information Discussed Contacted Natalie to discuss what her plans are regarding treatment of her Graves. She states that bolahas been out of her methimazole now for four days. She reports that she does plan to get lab work done today that Dr. Mast requested. Informed her to pause on the lab work today as I'm not sure she should get labs if she has missed 4 days of medication. Will discuss with Dr. Mast and call her back. Natalie states that she has been contemplating getting surgery. She reports feeling more hesitant to get surgery for her Graves. I informed her at the last visit Dr. Mast was expecting he to meet with a surgeon and have a thyroidectomy and that's why the refill request was delayed as we were unaware she was feeling hesitant/having a change in feelings about how she would like to manage her Gravesdisease. She has not yet scheduled the surgical consult that Dr. Mast ordered. I informed her she could schedule it so she could meet with a surgeon to discuss the risk/benefits of surgery and then she would be able to make a decision based after that. I reassured her meeting with the surgeon does not mean she has to proceed with surgery. For now she would like to stay on methimazole. I will update Dr. Mast and see what she advises moving forward and when she should get her labs rechecked since she has been off methimazole for 4 days now. PLAN Disposition/Recommendation: notified provider and awaiting recommendations Information/Education: patient/caller able to teach back Caller agreeable to plan of care: yes The following references were used: nursing clinical judgement ADDENDUM: Called patient back and did advise her not to get labs done today since she has missed 4 days of medication. Informed her I was not able to reach Dr. Mast as she is in procedures today. I informed we would connect with her probably tomorrow with recommendations on when to get her labs rechecked. She was appreciative of the call so she can reschedule her lab appointment. References used: nursing clinical judgement documented in this encounter Plan of Treatment Scheduled Orders Name Type Priority Associated Diagnoses Orde r Schedule S-TSH (Thyroid-Stimulating Hormone - Sensitive) Lab Routine Hyperthyroidism Expected: 05/02/2024, Expires: 05/02/2025 T4 (Thyroxine), Free Lab Routine Hyperthyroidism Expected: 05/02/2024, Expires: 05/02/2025 T3 (Triiodothyronine), Total Lab Routine Hyperthyroidism Expected: 05/02/2024, Expires: 05/02/2025 Thyrotropin Receptor Antibody Lab Routine Hyperthyroidism Expected: 05/02/2024, Expires: 05/02/2025 Scheduled Referrals Name Type Priority Associated Diagnoses Order Schedule Endocrinology office visit (clinic) Outpatient Referral Routine Hyperthyroidism Expected: 05/02/2024, Expires: 05/02/2025 documented as of this encounter Visit Diagnoses Diagnosis Hyperthyroidism- Primary documented in this encounter
--- OUTSIDE RECORDS SUMMARY | 2024-03-30 16:09 | XMS_ITS ---
Author Organization [facility] Address [address] [place] [address] Care Team Providers Care Television Audio Engineer Name Role Phone Unavailable Unavailable Unavailable Surgery Details Not on file Complications Check Surgery Details section. Procedure Estimated Blood Loss Check Surgery Details section. Procedure Findings Check Surgery Details section. Procedure Specimens Taken Check Surgery Details section.
--- OUTSIDE RECORDS SUMMARY | 2024-03-30 16:09 | XMS_ITS | Encounter Summary ---
Author Organization [facility] Address [address] [place] [address] Care Team Providers Care Lease Out Worker Name Role Phone Unavailable Primary Care Provider Unavailabl e Reason for Visit * Reason Comments Med Refill Encounter Details Date Type Department Care Team ([facility] st Contact Info) Description 01/23/2024 Refill Division of Endocrinology in [place], [place] [address] [place] [phone] Minerva Mast M.D. [address] [place] [phone] Med Refill Social History Tobacco Use Types Packs/Day Years Used Date Smoking Tobacco: Former Cigarettes Passive Smoke Exposure: Current Smokeless Tobacco: Never [facility] Utilities Answer Date Recorded In the past [...] your living situation today? I have a [employer] place to live 08/24/2023 Comments Unknown Sex and Gender Information Value Date Recorded Sex Assigned at Female 08/24/2023 7:50 PM CDT Legal Sex Female 2:17 PM OCCUPATIONAL THER Gender Identity Female 08/24/2023 7:50 PM CDT Sexual Orientation Straight 08/24/2023 7: 50 PM CDT documented as of this encounter Plan of Treatment Not on file documented as of this encounter Visit Diagnoses Diagnosis Hyperthyroidism documented in this encounter
--- OUTSIDE RECORDS SUMMARY | 2024-03-30 16:09 | XMS_ITS | Referral Summary ---
Author Organization [facility] Address [address] [place] [address] Care Team Providers Care Radio Dispatcher Name Role Phone Unavailable Primary Care Provider Unavailabl e Source Comments Patient records contain information from all sites at [facility]. For routine questions regarding patient records, call [phone] during business hours, M-F 8:00 AM - 5:00 PM Central Time. Record requests for emergency care only can be directed to [phone] at any time.[facility] Encounters Date Type Department Care Team Description 02/01/2024 Clinical Communication Division of Endocrinology in [place], [place] [address] [place] [address] Minerva Mast M.D. 01/26/2024 Clinical Communication Division of Endocrinology in [place], [place] [address] [place] [phone] Minerva Mast M.D. Order Request 01/23/2024 Refill Division of Endocrinology in [place], [place] [address] [place] [phone] Minerva Mast M.D. Med Refill from Last 3 Months Allergies Active Allergy Reactions Criticality Noted Date Comments Declo Other (see comments) Low 06/13/2023 Cyclobenzaprine Other [...] to crawl out of my skin Medications acetaminophen (TYLENOL) 500 mg tablet Take 500-1,000 mg by mouth every 6 (six) hours as needed for pain. Active albuterol 90 mcg/actuation inhaler Inhale 2 puffs. 10/19/19 Active albuterol 90 mcg/actuation inhaler Inhale. 05/14/20 Active amoxicillin (AMOXIL) 500 mg capsule Take 500 mg by mouth. 04/07/20 Active atomoxetine (STRATTERA) 40 mg capsule Take 40 mg by mouth daily. 03/29/20 Active cholecalcifero l (VITAMIN D3) 50 mcg (2,000 Unit) tablet Take 50 mcg by mouth daily. 03/18/20 Active EPINEPHrine 0.3 mg/0.3 mL injection syringe Inject 0.3 mg intramuscularly as needed. 10/19/19 Active fluticasone propion-salmet Antoinette 100-50 mcg/actuation diskus inhaler Inhale 1 each. 05/14/20 Active fluticasone propion-salmet Antoinette 100-50 mcg/actuation diskus inhaler Inhale 1 puff every 12 (twelve) hours. 03/23/20 Active gabapentin (NEURONTIN) 300 mg capsule Take 300 mg by mouth daily. 09/24/19 Active hydroCHLOROthi azide (HYDRODIURIL) 12.5 mg tablet Take 12.5 mg by mouth. 03/23/20 Active hydrocortisone (CORTIZONE) 1 % ointment Apply sparingly to affected area three times daily for 14 days. 02/23/20 Active lidocaine (SALONPAS) 4 % adhesive patch,medicate d Place 1 patch on the skin daily. Active omeprazole (PriLOSEC) [address] capsule Take 40 mg by mouth. 04/07/20 Active prazosin (MINIPRESS) 1 mg capsule Take 1 mg by mouth daily. 02/19/20 Active prazosin (MINIPRESS) 2 mg capsule Take 2 mg by mouth at bedtime. Active propranoloL (INDERAL) 20 mg tablet TAKE ONE TABLET (20 MG) BY MOUTH TWICE A DAY. 06/08/19 Active sennosides-doc usate sodium (Senexon-S) 8.6-50 mg per tablet Take 1 tablet by mouth as needed for constipation. 03/21/20 Active topiramate (TOPAMAX) 25 mg tablet TAKE ONE TABLET (25 MG) BY MOUTH DAILY. 06/08/19 Active traZODone (DESYREL) 50 mg tablet Take 100 mg by mouth at bedtime. Active loperamide (IMODIUM A-D) 2 mg capsule Take 2 mg by mouth as needed. 06/13/19 Active methIMAzole (Tapazole) 5 mg tabletIndicati ons:Hyperthyro idism TAKE 3 TABLETS (15 MG) BY MOUTH DAILY. 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 I have a [facility] place to live 08/24/2023 Comments Unknown Sex and Gender Information Value Date Recorded Sex Assigned at Female 08/24/2023 7:50 PM CDT Legal Sex Female 2:17 PM SUPERVISOR COOPERAGE SHOP Gender Identity Female 08/24/2023 7:50 PM CDT Sexual Orientation Straight 08/24/2023 7: 50 PM CDT Last Filed Vital Signs Vital Sign Reading Time Taken Comments Blood Pressure 116/77 06/23/2023 8:33 AM SUPERVISOR COOPERAGE SHOP Pulse 76 06/23/2023 8:33 AM SUPERVISOR COOPERAGE SHOP Temperature - - Respiratory Rate - - Oxygen Saturation - - Inhaled Oxygen Concentration - - Weight 85.5 kg (188 lb 7.9 oz) 06/23/2023 8:33 A M [employer]OPER[employer] Height 166.8 cm (5' 5.67) 06/23/2023 8:33 AM CS T Body Mass Index 30.73 06/23/2023 8:33 AM SUPERVISOR COOPERAGE SHOP Plan of Treatment Not on file Medical Devices Implanted Type Area Computer Equipment Repairer Device Identifier Shelf Expiration Date Model / Serial / Lot Gi Other GI Other Stomach Description:06/23/23. PS (Phe t). Patient could not recall approx. date of implantation. Hardware E.G. Pins/Screws/Graham s Hardware e.g. pins/screws/graham s Right: Ankle Description:06/23/23 PS (Phet ). Patient said these screws were implanted approx. 3 years ago, so approx. 2020. Intrauterine Device Intrauterine Device Uterus Insurance [facility]
--- OUTSIDE RECORDS SUMMARY | 2024-03-30 16:09 | XMS_ITS | Encounter Summary ---
Author Organization [facility] Address [address] [place] [address] Care Team Providers Care Food Packer Name Role Phone Unavailable Primary Care Provider Unavailabl e Reason for Visit * Reason Onset Date Comments Order Request 01/26/2024 Encounter Details Date Type Department Care Team (Latest Contact Info) Description 01/26/2024 Clinical Communication Division of Endocrinology in [place], [place] [address] [place] [phone] Minerva Mast M.D. [address] [place] [phone] Order Request Social History Tobacco Use Types Packs/Day Years Used Date Smoking Tobacco: Former Cigarettes Passive Smoke Exposure: Current Smokeless Tobacco: Never [facility] Utilities Answer Date Recorded In the past 12 months has th e electric, gas, oil, or water [employer] threatened to shut off services in your [...] PM CDT Legal Sex Female 2:[address] Gender Identity Female 08/24/2023 7:50 PM CDT Sexual Orientation Straight 08/24/2023 7: 50 PM CDT documented as of this encounter Plan of Treatment Not on file documented as of this encounter Visit Diagnoses Not on filedocumented in this encounter
--- OUTSIDE RECORDS SUMMARY | 2024-03-30 16:09 | XMS_ITS | Encounter Summary ---
Author Organization [facility] Address [address] [facility] [place] [address] Care Team Providers Care Secondary Social Studies Teacher Name Role Phone Shirlene Amos MD Unavailable [phone] Pat Cole APRN DRYWALL BOARDHANGER Unavailable [phone] Letha Manzanares MD Unavailable Unavailable Corby Centeno MD Unavailable [phone] Cynthia Dubon MD Unavailable [phone] Letha Manzanares MD Unavailable Unavailable Wilma Saba MD Unavailable [phone] Jeannette Jean Baptiste NP Unavailable [phone] Cynthia Dubon MD Unavailable [phone] System, Provider Not In Primary Care Provider Un available Corby Centeno MD Unavailable [phone] Encounter Details Date Type Department Care Team (Late st Contact Info) Description 11/09/2023 [facility] [address] [phone] Rosalind Jacobo, RN Social History Tobacco Use [...] PM CDT Legal Sex Female 4:01 AM GEOSPATIAL APPLICATIONS DEVELOPER Gender Identity Female 09/29/2020 3:49 PM CDT Sexual Orientation Straight 09/29/2020 3: 49 PM CDT documented as of this encounter Plan of Treatment Not on file documented as of this encounter Visit Diagnoses Not on filedocumented in this encounter Additional Health Concerns Assessment Noted Time PHQ-9 Depression Total Score: 1 04/07/20 23 7:51 AM GEOSPATIAL APPLICATIONS DEVELOPER documented as of this encounter Care Teams Secondary Social Studies Teacher Relationship Specialty Start Date End Date System, Provider Not In PCP - General Clinic 07/15/23 Shirlene Amos MD [address] [place] [address] Dermatology 12/29/15 Pat Cole APRN DRYWALL BOARDHANGER [address] [place] [address] Nurse Practitioner 01/19/22 Letha Manzanares MD [address] [place] [address] Ophthalmology 03/25/23 02/15/24 Corby Centeno MD [address] [place] [address] [phone] Dermatology 03/29/23 Cynthia Dubon MD [address] [place] [phone] Cardiovascular Disease 04/19/23 Letha Manzanares MD Assigned Surgical Provider 04/23/23 11/19/23 Wilma Saba MD [address] [address] Assigned OBGYN Provider 04/09/23 Jeannette Jean Baptiste NP [address] [place] [phone] Assigned PCP 06/23/23 Cynthia Dubon MD [address] [place] [phone] Assigned Heart and Vascular Provider 07/01/23 Corby Centeno MD [address] [place] [address] [phone] Assigned Surgical Provider 11/20/23 documented as of this encounter
--- OUTSIDE RECORDS SUMMARY | 2024-03-30 16:09 | XMS_ITS | Referral Summary ---
Author Organization [place] Address [address] [facility] [place] [address] Care Team Providers Care Advertising Rep Name Role Phone Shirlene Amos MD Unavailable Pat Cole APRN TELECOM COORDINATOR Unavailable [phone] Corby Centeno MD Unavailable [phone] Cynthia Dubon MD Unavailable [phone] Wilma Saba MD Unavailable [phone] Jeannette Jean Baptiste NP Unavailable [phone] Cynthia Dubon MD Unavailable [phone] System, Provider Not In Primary Care Provider Un available Corby Centeno MD Unavailable [phone] Allergies Active Allergy Reactions Criticality Noted Date [...] to crawl out of my skin Medications polyethylene glycol (MIRALAX) 17 GM/Dose powderIndication s:Chronic constipation Take 17 g (1 capful) by mouth 2 times daily 850 g 4 1 Active gabapentin (NEURONTIN) 300 MG capsuleIndicatio ns:Neuropathic pain Start 300 mg at bedtime x 2 days, then increase to 300 mg BID x 3 days, then 300 mg TID x 3 days. 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 30 g 3 Active Heating Pads (HEATING PAD MOIST/DRY) PADSIndications: Costochondritis 1 Pad 2 times daily as needed (rib pain after coughing) 1 box 1 each 1 3 Active Additional Information Patient not taking.Reported on [...] 50 mg by mouth At Bedtime Active fluticasone-salm eterol (ADVAIR) 100-50 MCG/ACT inhalerIndicatio ns:Moderate persistent asthma, unspecified whether complicated Inhale 1 puff into the lungs every 12 hours 60 each 3 3 Active hydrochlorothiaz jim (HYDRODIURIL) 12.5 MG tabletIndication s:Fluid retention in legs Take 1 tablet (12.5 mg) by mouth daily 30 tablet 1 3 Active vitamin D3 (CHOLECALCIFEROL ) 50 mcg (2000 units) tablet 3 Active atomoxetine (STRATTERA) 40 MG capsule 3 Active Multiple Vitamin (TAB-A-NIKKI) TABS 3 Active prazosin (MINIPRESS) 1 MG capsule 3 Active SENEXON-S 8.6-50 MG tablet 3 Active omeprazole (PRILOSEC) [address] capsuleIndicatio ns:Heartburn Take 1 capsule (40 mg) by mouth daily Take 30-60 minutes before a meal. 30 capsule 1 3 Active amoxicillin (AMOXIL) 500 MG capsuleIndicatio ns:Acute serous otitis media of left ear, recurrence not specified Take 1 capsule (500 mg) by mouth 3 times daily 30 capsule 3 Active Additional Information Patient not taking.Reported on 06/20/2023 topiramate (TOPAMAX) 25 MG tablet TAKE ONE TABLET (25 MG) BY MOUTH DAILY. 4 Active propranolol (INDERAL) 20 MG tablet TAKE ONE TABLET (20 MG) BY MOUTH TWICE A DAY. 4 Active acetaminophen (TYLENOL) 500 MG tabletIndication s:Encounter for IUD insertion Take 1-2 tablets (500-1,000 mg) by mouth every 6 hours as needed for mild pain 4 Active ibuprofen (ADVIL/MOTRIN) 800 MG tabletIndication s:Encounter for IUD insertion Take 1 tablet (800 mg) by mouth every 8 hours as needed for moderate pain 4 Active methimazole (TAPAZOLE) 5 MG tablet Take 15 mg by mouth daily Active budesonide-formo terol (SYMBICORT) 160-4.5 MCG/ACT InhalerIndicatio ns:Mild intermittent asthma with acute exacerbation,Non -seasonal allergic rhinitis due to pollen,Angioedem a, subsequent encounter,Nut allergy,Atopy Inhale 2 puffs into the lungs 2 times daily 10.2 g 3 4 Active levocetirizine (XYZAL) 5 MG tabletIndication s:Mild intermittent asthma with acute exacerbation,Non -seasonal allergic rhinitis due to pollen,Angioedem a, subsequent encounter,Nut allergy,Atopy Take 1 tablet (5 mg) by mouth every morning 30 tablet 2 4 Active emollient (VANICREAM) external creamIndications :Atopy Apply topically daily 453 g 3 4 Active Active Problems Problem Noted Date Diagnosed Date Pain in joint, ankle and foot, right 10/21/2022 Neuropathic pain 10/21/2022 Closed displaced fracture of medial malleolus of right tibia, initial encounter 10/22/2021 Overview (10/22/2021): Added automatically from request for surgery [id number] Back muscle spasm 04/28/2018 Assessment & Plan (04/28/2018 9:48 AM RETURN AGENT): Acute muscle spasm likely triggered by underlying scoliosis. Valium at night and flexeril during the day to help with muscle spasm . Cannot take prednisone due to her reflux Do not combine with percocet and valium. Work excuse given Thyroid nodule 11/24/2015 Overview (11/24/2015): Tiny nodule on right thyroid lobe.-No vascularity. Normal labs. Will reexamine in 6 months to a year or sooner if new symptoms Intermittent asthma, uncomplicated 10/29/2015 Gastroesophageal reflux disease without esophagi tis 07/02/2015 Cervical high risk HPV (human papillomavirus) te st positive 06/26/2014 Overview (05/06/2021): 06/26/14 normal pap/+ HR HPV. Plan: repeat [...] bef 03/19/21. 03/25/20 Pt sent results via Hinge. 03/26/20 Pt viewed results on Hinge. 03/05/21 Reminder [facility] 04/02/21 Reminder call - lm 05/06/21 Lost [...] 03/30/2023 Immunizations Name Administration Dates Next Due [id number] Novel Flu 06/23/2009 Influenza (IIV3) PF 03/11/2014,06/23/2009 [...] in an abandoned building, in an overnight custodial, or couch-surfing.) Yes 02/22/2023 Are you worried [...] PM CDT Legal Sex Female 4:01 AM RETURN AGENT Gender Identity Female 09/29/2020 3:49 PM CDT Sexual Orientation Straight 09/29/2020 3: 49 PM CDT Last Filed Vital Signs Vital Sign [place] Time Taken Comments Blood Pressure 96/61 07/15/2023 9:30 AM RETURN AGENT Pulse 64 07/15/2023 9:30 AM RETURN AGENT Temperature 36.7 ??C (98 ??F) 07/15/2023 9:42 AM RETURN AGENT Respiratory Rate 18 07/15/2023 9:42 AM RETURN AGENT Oxygen Saturation 98% 07/15/2023 9:42 AM RETURN AGENT Inhaled Oxygen Concentration - - Weight 88 kg (194 lb 0.1 oz) 07/15/2023 6:41 AM RETURN AGENT Height 166.6 cm (5' 5.59) 07/15/2023 6:41 AM CS T Body Mass Index 31.7 07/15/2023 6:41 AM RETURN AGENT Plan of Treatment Not on file Medical Devices Implanted Type Area Industrial Hygenist Device Identifier Shelf Expiration Date Model / Serial / Lot Iud Contraceptive Device Mirena [id number] - [id number] Implanted:Qty: 1 on 07/15/2023 by Wilma Saba MD at [facility] Contraceptive Device N/A: Uterus HARI 06/29/2025 [id number] 07-28 [id number] Arthrex Ankle Fracture Management System, 2.6mm Drill Bit, Cannulated Implanted:Qty: 1 on 11/04/2021 by Sukumar Villarreal MD at [facility] Right: Ankle [id number] 2220 3 Arthrex Ankle Fracture Management System, 4mm Cannulated, Short Threaded, 40mm Implanted:Qty: 1 on 11/04/2021 by Sukumar Villarreal MD at [facility] Right: Ankle [id number] 40 2220 3 Arthrex Ankle Fracture Management System, 4mm Cannulated, Short Thread, 50mm Implanted:Qty: 1 on 11/04/2021 by Sukumar Villarreal MD at [facility] Right: Ankle [id number] -50 2220 3 Explanted Type Area Industrial Hygenist Device Identifier Shelf Expiration Date Model / Serial / Lot Arthrex Ankle Fracture Management System, Guidewire W/ Trocar Tip, Threaded, 0.062 In Explanted:Qty: 2 on 11/04/2021 by Sukumar Villarreal MD at [facility] Right: Ankle [id number] 2220 3 Procedures Procedure Name Priority Date/Time Associated Diagnosis Comments COMPREHENSIVE METABOLIC PANEL STAT 04/19/2023 10:11 PM RETURN AGENT HIV ANTIGEN ANTIBODY COMBO Routine 04/07/2023 9:34 AM RETURN AGENT History of substance abuse (H) HEPATITIS C SCREEN REFLEX TO HCV RNA QUANT AND GENOTYPE Routine 04/07/2023 9:34 AM RETURN AGENT History of substance abuse (H) LIPID REFLEX [...] (ABNORMAL) Comprehensive metabolic panel (04/19/2023 10:11 PM RETURN AGENT) Pathologist [facility] Sodium 138 135 - 145 mmol/L 04/19/2023 10:59 PM RETURN AGENT [facility] Comment:Reference intervals for this test were updated on 02/22/2023 to more accurately reflect our healthy population. There may be differences in the flagging of prior results with similar values performed with this method. Interpretation of those prior results can be made in the context of the updated reference intervals. Potassium 4.0 3.4 - 5.3 mmol/L 04/19/2023 10:59 PM RETURN AGENT [facility] Carbon Dioxide (CO2) 28 22 - 29 mmol/L 04/19/2023 10:59 PM RETURN AGENT [facility] Anion Gap 7 7 - 15 mmol/L 04/19/2023 10:59 PM RETURN AGENT [facility] Urea Nitrogen 16.1 6.0 - 20.0 mg/dL 04/19/2023 10:59 PM RETURN AGENT [facility] Creatinine 0.89 0.51 - 0.95 mg/dL 04/19/2023 10:59 PM RETURN AGENT [facility] GFR Estimate 83 >60 mL/min/1. 73m2 04/19/2023 10:59 PM RETURN AGENT [facility] Calcium 9.2 8.6 - 10.0 mg/dL 04/19/2023 10:59 PM RETURN AGENT [facility] Chloride 103 98 - 107 mmol/L 04/19/2023 10:59 PM RETURN AGENT [facility] Glucose 105(H) 70 - 99 mg/dL 04/19/2023 10:59 PM RETURN AGENT [facility] Alkaline Phosphatase 70 40 - 150 U/L 04/19/2023 10:59 PM RETURN AGENT [facility] Comment:Reference intervals for this test were updated on 04/12/2023 to more accurately reflect our healthy population. There may be differences in the flagging of prior results with similar values performed with this method. Interpretation of those prior results can be made in the context of the updated reference intervals. AST 19 0 - 45 U/L 04/19/2023 10:59 PM RETURN AGENT [facility] Comment:Reference intervals for this test were updated on 11/08/2022 to more accurately reflect our healthy population. There may be differences in the flagging of prior results with similar values performed with this method. Interpretation of those prior results can be made in the context of the updated reference intervals. ALT 25 0 - 50 U/L 04/19/2023 10:59 PM RETURN AGENT [facility] Comment:Reference intervals for this test were updated on 11/08/2022 to more accurately reflect our healthy population. There may be differences in the flagging of prior results with similar values performed with this method. Interpretation of those prior results can be made in the context of the updated reference intervals. Protein Total 6.5 6.4 - 8.3 g/dL 04/19/2023 10:59 PM RETURN AGENT [facility] Albumin 3.9 3.5 - 5.2 g/dL 04/19/2023 10:59 PM RETURN AGENT [facility] Bilirubin Total <0.2 <=1.2 mg/dL 04/19/2023 10:59 PM RETURN AGENT [facility] Blood BLOOD SPECIMEN / Unknown Venipuncture / Unknown 04/19/2023 10:11 PM RETURN AGENT 04/19/2023 10:19 PM RETURN AGENT us Aida Teague MD LAB - BLOOD ORDERABLES Final Res ult [facility] [place] [facility] [address] [facility], [address] [place] [address], [facility] [phone] * HIV Antigen Antibody Combo [place] (04/07/2023 9:34 AM RETURN AGENT) HIV Antigen Antibody Combo Nonreactive Nonreactive 04/08/2023 10:32 AM RETURN AGENT [facility] DO Comment:HIV-1 p24 Ag & HIV-1 /HIV-2 Ab Not Detected Blood BLOOD SPECIMEN / Unknown Venipuncture / Unknown 04/07/2023 9:34 AM RETURN AGENT 04/07/2023 9:34 AM RETURN AGENT Jeannette Jean Baptiste NP LAB - BLOOD ORDERABLES Final Result [facility] [address] [facility], [address] [phone] * Hepatitis C Screen Reflex to HCV RNA Quant and Genotype (04/07/2023 9:34 AM RETURN AGENT) Pathologist [facility] Hepatitis C Antibody Nonreactive Nonreactive 04/08/2023 9:37 AM RETURN AGENT [facility] Blood BLOOD SPECIMEN / Unknown Venipuncture / Unknown 04/07/2023 9:34 AM RETURN AGENT 04/07/2023 9:34 AM RETURN AGENT Narrative [facility] - 04/08/2023 9:37 AM RETURN AGENT Assay performance characteristics have not been established for newborns, infants, and children. Jeannette Jean Baptiste NP LAB - BLOOD ORDERABLES Final Result [facility] [address] [facility], [address] [address], [facility] [phone] * Lipid panel reflex to direct LDL Fasting (03/01/2023 1:33 PM CDT) Pathologist [facility] Cholesterol 156 <200 mg/dL 03/02/2023 2:22 PM [...] equal to 220 mg/dL Eulalia Luna Юлия MCCANNN TELECOM COORDINATOR LAB - BLOOD ORDER EMMETT Final Result [facility] [facility] [address] [facility], [address] [place] [phone], [facility] [phone] * Pap screen with HPV - recommended [...] CDT 02/22/2023 11:50 AM CDT Eulalia Redman CASH PROCESSOR TELECOM COORDINATOR LAB - [place] AP F inal Result [facility] [address] [facility], [address] [place] [phone], [facility] [phone] * HPV High Risk Types DNA Cervical (02/22/2023 11:20 AM CDT) Other HR HPV Negative Negative 02/28/2023 12:40 PM CDT [facility] HPV16 DNA Negative Negative 02/28/2023 12:40 PM CDT [facility] HPV18 DNA Negative Negative 02/28/2023 12:40 PM CDT [facility] FINAL DIAGNOSIS This patient's sample is negative for HPV DNA. This test was developed and its performance characteristics determined by the [facility], Molecular Diagnostics Laboratory. It has not [...] 02/25/2023 10:26 AM CDT Eulalia Luna Юлия MCCANNN TELECOM COORDINATOR LAB - BLOOD ORDER EMMETT Final Result [facility] [address] [facility] [address] [facility], [address] [place] [address], [facility] [phone] from Last 3 Months or Most Recently Relevant to Health Maintenance [facility] [employer] Care Teams Advertising Rep Relationship Specialty Start Date End Date System, Provider Not In PCP - General Clinic 07/15/23 Shirlene Amos MD [facility] [address] Dermatology 12/29/15 Pat Cole APRN TELECOM COORDINATOR [address] [place] [address] [phone] Nurse Practitioner 01/19/22 Corby Centeno MD [address] [place] [address] [phone] Dermatology 03/29/23 Cynthia Dubon MD [address] [place] [address] [phone] Cardiovascular Disease 04/19/23 Wilma Saba MD [address] [id number] Assigned OBGYN Provider 04/09/23 Jeannette Jean Baptiste NP [address] [address] Assigned PCP 06/23/23 Cynthia Dubon MD [address] [place] [address] Assigned Heart and Vascular Provider 07/01/23 Corby Centeno MD [address] [place] [address] Assigned Surgical Provider 11/20/23
--- OUTSIDE RECORDS SUMMARY | 2024-03-30 16:09 | XMS_ITS | Clinical Summary ---
Author Organization [place] Address [address] [place] [address] Care Team Providers Care Regional Climate Change Analyst Name Role Phone Shirlene Amos MD Unavailable Pat Cole APRN INSTRUCTIONAL WRITER Unavailable [phone] Corby Centeno MD Unavailable [phone] Cynthia Dubon MD Unavailable [phone] Wilma Saba MD Unavailable [phone] Jeannette Jean Baptiste NP Unavailable [phone] Cynthia Dubon MD Unavailable [phone] System, Provider Not In Primary Care Provider Un available Corby Centeno MD Unavailable [phone] Allergies Active Allergy Reactions Criticality Noted Date [...] (10/22/2021): Added automatically from request for surgery [id number] Back muscle spasm 04/28/2018 Assessment & Plan (04/28/2018 9:48 AM SALES MARKET LEADER): Acute muscle spasm likely triggered by underlying [...] bef 03/19/21. 03/25/20 Pt sent results via Accellion. 03/26/20 Pt viewed results on Accellion. 03/05/21 Reminder [facility]unk[facility] 04/02/21 Reminder call - lm 05/06/21 Lost [...] 03/30/2023 Immunizations Name Administration Dates Next Due [id number] Novel Flu 06/23/2009 Influenza (IIV3) PF 03/11/2014,06/23/2009 [...] PM CDT Legal Sex Female 4:01 AM SALES MARKET LEADER Gender Identity Female 09/29/2020 3:49 PM CDT Sexual Orientation Straight 09/29/2020 3: 49 PM CDT Last Filed Vital Signs Vital Sign Reading Time Taken Comments Blood Pressure 96/61 07/15/2023 9:30 AM SALES MARKET LEADER Pulse 64 07/15/2023 9:30 AM SALES MARKET LEADER Temperature 36.7 ??C (98 ??F) 07/15/2023 9:42 AM SALES MARKET LEADER Respiratory Rate 18 07/15/2023 9:42 AM SALES MARKET LEADER Oxygen Saturation 98% 07/15/2023 9:42 AM SALES MARKET LEADER Inhaled Oxygen Concentration - - Weight 88 kg (194 lb 0.1 oz) 07/15/2023 6:41 AM SALES MARKET LEADER Height 166.6 cm (5' 5.59) 07/15/2023 6:41 AM CS T Body Mass Index 31.7 07/15/2023 6:41 AM SALES MARKET LEADER Plan of Treatment Health Maintenance Due Date Last Done Comments ADVANCE CARE PLANNING 1981 ANNUAL REVIEW OF HM ORDERS 1981 MAMMO SCREENING 1981 URINE DRUG SCREEN 1981 Pneumococcal Vaccine: Pediatrics (0 to 5 Years) and At-Risk Patients (6 to 64 Years) (1 of 2 - PCV) 1987 HEPATITIS B IMMUNIZATION (1 of 3 - 19+ 3-dose series) 2000 ASTHMA ACTION PLAN 05/26/2021 05/26/2020 NICOTINE/TOBACCO CESSATION COUNSELING Q 1 YR 04/13/2023 04/13/2022, 03/31/2021, 03/19/2020, Additional history exists DTAP/TDAP/TD IMMUNIZATION (3 - Td or Tdap) 10/12/2023 10/11/2013, 06/22/2011 COVID-19 Vaccine ( season) 2024 INFLUENZA VACCINE (#1) 2024 , 07/02/2015, 03/11/2014, Additional history exists YEARLY PREVENTIVE VISIT 04/07/2024 04/07/20 23, 03/19/2020, 07/02/2015, Additional history exists ASTHMA CONTROL TEST 04/19/2024 10/18/2023, 04/18/2023, 10/18/2022, Additional history exists HPV TEST 02/22/2026 02/22/2023, 02/28, 07/02/2015 PAP 02/22/2026 02/22/2023, 02/28, 07/02/2015, Additional history exists GLUCOSE 04/19/2026 04/19/2023, 11/01/2023, 02/22/2023, Additional history exists LIPID 03/01/2028 03/01/2023, 07/02/2015 RSV VACCINE (1 - 1-dose 75+ series) 2056 HPV FOLLOW-UP Completed 02/22/2023, 02/28, 07/02/2015 PAP [...] this topic Medical Devices Implanted Type Area Media Relations Associate Device Identifier Shelf Expiration Date Model / Serial / Lot Iud Contraceptive Device Mirena [id number] - [id number] Implanted:Qty: 1 on 07/15/2023 by Wilma Saba MD at [facility] Contraceptive Device N/A: Uterus HARI 06/29/2025 [id number]- / [id number] Arthrex Ankle Fracture Management System, 2.6mm Drill Bit, Cannulated Implanted:Qty: 1 on 11/04/2021 by Sukumar Villarreal MD at [facility] Right: Ankle [id number] 2220 3 Arthrex Ankle Fracture Management System, 4mm Cannulated, Short Threaded, 40mm Implanted:Qty: 1 on 11/04/2021 by Sukumar Villarreal MD at [facility] Right: Ankle [id number] 2220 3 Arthrex Ankle Fracture Management System, 4mm Cannulated, Short Thread, 50mm Implanted:Qty: 1 on 11/04/2021 by Sukumar Villarreal MD at [facility] Right: Ankle [id number] -50 2220 3 Explanted Type Area Media Relations Associate Device Identifier Shelf Expiration Date Model / Serial / Lot Arthrex Ankle Fracture Management System, Guidewire W/ Trocar Tip, Threaded, 0.062 In Explanted:Qty: 2 on 11/04/2021 by Sukumar Villarreal MD at [facility] Right: Ankle [id number] 2220 3 Procedures Procedure Name Priority Date/Time Associated Diagnosis Comments COMPREHENSIVE METABOLIC PANEL STAT 04/19/2023 10:11 PM SALES MARKET LEADER HIV ANTIGEN ANTIBODY COMBO Routine 04/07/2023 9:34 AM SALES MARKET LEADER History of substance abuse (H) HEPATITIS C SCREEN REFLEX TO HCV RNA QUANT AND GENOTYPE Routine 04/07/2023 9:34 AM SALES MARKET LEADER History of substance abuse (H) LIPID REFLEX [...] (ABNORMAL) Comprehensive metabolic panel (04/19/2023 10:11 PM SALES MARKET LEADER) Sodium 138 135 - 145 mmol/L 04/19/2023 10:59 PM SALES MARKET LEADER [facility] Comment:Reference intervals for this test were updated on 02/22/2023 to more accurately reflect our healthy population. There may be differences in the flagging of prior results with similar values performed with this method. Interpretation of those prior results can be made in the context of the updated reference intervals. Potassium 4.0 3.4 - 5.3 mmol/L 04/19/2023 10:59 PM SALES MARKET LEADER [facility] Carbon Dioxide (CO2) 28 22 - 29 mmol/L 04/19/2023 10:59 PM SALES MARKET LEADER [facility] Anion Gap 7 7 - 15 mmol/L 04/19/2023 10:59 PM SALES MARKET LEADER [facility] Urea Nitrogen 16.1 6.0 - 20.0 mg/dL 04/19/2023 10:59 PM SALES MARKET LEADER [facility] Creatinine 0.89 0.51 - 0.95 mg/dL 04/19/2023 10:59 PM SALES MARKET LEADER [facility] GFR Estimate 83 >60 mL/min/1. 73m2 04/19/2023 10:59 PM SALES MARKET LEADER [facility] Calcium 9.2 8.6 - 10.0 mg/dL 04/19/2023 10:59 PM SALES MARKET LEADER [facility] Chloride 103 98 - 107 mmol/L 04/19/2023 10:59 PM SALES MARKET LEADER [facility] Glucose 105(H) 70 - 99 mg/dL 04/19/2023 10:59 PM SALES MARKET LEADER [facility] Alkaline Phosphatase 70 40 - 150 U/L 04/19/2023 10:59 PM SALES MARKET LEADER [facility] Comment:Reference intervals for this test were updated on 04/12/2023 to more accurately reflect our healthy population. There may be differences in the flagging of prior results with similar values performed with this method. Interpretation of those prior results can be made in the context of the updated reference intervals. AST 19 0 - 45 U/L 04/19/2023 10:59 PM SALES MARKET LEADER [facility] Comment:Reference intervals for this test were updated on 11/08/2022 to more accurately reflect our healthy population. There may be differences in the flagging of prior results with similar values performed with this method. Interpretation of those prior results can be made in the context of the updated reference intervals. ALT 25 0 - 50 U/L 04/19/2023 10:59 PM SALES MARKET LEADER [facility] Comment:Reference intervals for this test were updated on 11/08/2022 to more accurately reflect our healthy population. There may be differences in the flagging of prior results with similar values performed with this method. Interpretation of those prior results can be made in the context of the updated reference intervals. Protein Total 6.5 6.4 - 8.3 g/dL 04/19/2023 10:59 PM SALES MARKET LEADER [facility] Albumin 3.9 3.5 - 5.2 g/dL 04/19/2023 10:59 PM SALES MARKET LEADER [facility] Bilirubin Total <0.2 <=1.2 mg/dL 04/19/2023 10:59 PM SALES MARKET LEADER [facility] Blood BLOOD SPECIMEN / Unknown Venipuncture / Unknown 04/19/2023 10:11 PM SALES MARKET LEADER 04/19/2023 10:19 PM SALES MARKET LEADER Aida Teague MD LAB - BLOOD ORDERABLES Final Res ult [facility] [address] [facility], [address] [phone], [facility] [phone] * HIV Antigen Antibody Combo [place] (04/07/2023 9:34 AM SALES MARKET LEADER) HIV Antigen Antibody Combo Nonreactive Nonreactive 04/08/2023 10:32 AM SALES MARKET LEADER [facility] C[facility]/PROT/EN DO Comment:HIV-1 p24 Ag & HIV-1 /HIV-2 Ab Not Detected Blood BLOOD SPECIMEN / Unknown Venipuncture / Unknown 04/07/2023 9:34 AM SALES MARKET LEADER 04/07/2023 9:34 AM SALES MARKET LEADER Jeannette Jean Baptiste NP LAB - BLOOD ORDERABLES Final Result SPECIALTY CORE/PROT/ENDO Specialty Core/Prot/Endo [address] [facility] [place], Room [address] [phone] * Hepatitis C Screen Reflex to HCV RNA Quant and Genotype (04/07/2023 9:34 AM SALES MARKET LEADER) Hepatitis C Antibody Nonreactive Nonreactive 04/08/2023 9:37 AM SALES MARKET LEADER SPECIALTY CORE/PROT/EN DO Blood BLOOD SPECIMEN / Unknown Venipuncture / Unknown 04/07/2023 9:34 AM SALES MARKET LEADER 04/07/2023 9:34 AM SALES MARKET LEADER Narrative [facility] SPECIALTY CORE/PROT/ENDO - 04/08/2023 9:37 AM SALES MARKET LEADER Assay performance characteristics have not been established for newborns, infants, and children. us Jeannette Jean Baptiste NP LAB - BLOOD ORDERABLES Final Result [facility] SPECIALTY CORE/PROT/ENDO [facility] Specialty Core/Prot/Endo [address] [facility] [address], [address] [address], [facility] [phone] * Lipid panel reflex to direct LDL [...] or equal to 220 mg/dL Eulalia Redman CARBON CUTTER INSTRUCTIONAL WRITER LAB - BLOOD ORDER EMMETT Final Result [facility] [address] [facility], [address] [place] [address], [facility] [phone] * Pap screen with HPV - recommended [...] AM CDT 02/22/2023 11:50 AM CDT Eulalia Henryjosé miguel WANG INSTRUCTIONAL WRITER LAB - BEAKER AP F inal Result SPECIALTY LABS Specialty Lab [address] [facility] [address] Building, Room [address] [address], [facility] [phone] * HPV High Risk Types DNA Cervical [...] its performance characteristics determined by the [facility], Molecular Diagnostics Laboratory. It has [...] 10:26 AM CDT Eulalia Luna Юлия WANG CNP LAB - BLOOD ORDER EMMETT Final Result [facility] Molecular Diagnostics [address] [facility] [address] Building, [address] [place] [address], [facility] [phone] from Last 3 Months or Most Recently Relevant to Health Maintenance Insurance [facility] CLAIMS MANAGEMENT Care Teams Regional Climate Change Analyst Relationship Specialty Start Date End Date System, Provider Not In PCP - General Clinic 07/15/23 Shirlene Amos MD [address] [facility] [place] [address] Dermatology 12/29/15 Pat Cole APRN INSTRUCTIONAL WRITER [address] [place] [address] Nurse Practitioner 01/19/22 Corby Centeno MD [address] [place] [address] Dermatology 03/29/23 Cynthia Dubon MD [address] [place] [address] Cardiovascular Disease 04/19/23 Wilma Saba MD [address] [place] [address] 775274 Assigned OBGYN Provider 04/09/23 Jeannette Jean Baptiste NP [address] [place] [address] 201905 Assigned PCP 06/23/23 Cynthia Dubon MD [address] [place] [address] 540055 Assigned Heart and Vascular Provider 07/01/23 Corby Centeno MD [address] [place] [address] [id number] Assigned Surgical Provider 11/20/23
--- OUTSIDE RECORDS SUMMARY | 2024-03-30 16:09 | XMS_ITS | Clinical Summary ---
Author Organization [facility] Address [address] [place] [address] Care Team Providers Care Route Relief Driver Name Role Phone Unavailable Primary Care Provider Unavailabl e Source Comments Patient records contain information from all sites at [facility]. For routine questions regarding patient records, call [phone] during business hours, M-F 8:00 AM - 5:00 PM Central Time. Record requests for emergency care only can be directed to [phone] at any time.[facility] Allergies Active Allergy Reactions Criticality Noted Date Comments [place] Other (see comments) Low 06/13/2023 Cyclobenzaprine Other [...] 90 mcg/actuation inhaler Inhale 2 puffs. 10/19/19 23 Active albuterol 90 mcg/actuation inhaler Inhale. 05/14/20 [...] 2 mg by mouth as needed. 06/13/19 24 Active methIMAzole (Tapazole) 5 mg tabletIndicati ons:Hyperthyro idism TAKE 3 TABLETS (15 MG) BY MOUTH DAILY. 90 tablet 2 02/01/20 24 Active Active Problems Problem Noted Date Diagnosed [...] above Assessment & Plan (06/23/2023 10:10 AM STAVE JOINTER): Natalie presents for above, she was 31 [...] months with labs and visit (Pro or DIRECTOR PHYSICAL) Encounters Date Type Department Care Team Description 02/01/2024 Clinical Communication Division of Endocrinology in [place], [place] [address] [place] [address] Minerva Mast M.D. 01/26/2024 Clinical Communication Division of Endocrinology in [place], [place] [address] [place] [address] Minerva Mast M.D. Order Request 01/23/2024 Refill Division of Endocrinology in [place], [place] [address] [place] [phone] Minerva Mast M.D. Med Refill from Last 3 Months Social History Tobacco Use Types Packs/Day Years Used Date Smoking Tobacco: Former Cigarettes Passive Smoke Exposure: Current Smokeless Tobacco: Never Tobacco Cessation:Counseling Given: Not Answered [facility] Utilities Answer Date Recorded In the past 12 months has [employer], gas, oil, or water [employer] threatened to shut off services in your [...] your living situation today? [facility] 08/24/2023 Comments Unknown Sex and Gender Information Value Date Recorded Sex Assigned at Female 08/24/2023 7:50 PM CDT Legal Sex Female 2:17 PM STAVE JOINTER Gender Identity Female 08/24/2023 7:50 PM CDT Sexual Orientation Straight 08/24/2023 7: 50 PM CDT Last Filed Vital Signs Vital Sign Reading Time Taken Comments Blood Pressure 116/77 06/23/2023 8:33 AM STAVE JOINTER Pulse 76 06/23/2023 8:33 AM STAVE JOINTER Temperature - - Respiratory Rate - - Oxygen Saturation - - Inhaled Oxygen Concentration - - Weight 85.5 kg (188 lb 7.9 oz) 06/23/2023 8:33 A M STAVE JOINTER Height 166.8 cm (5' 5.67) 06/23/2023 8:33 AM CS T Body Mass Index 30.73 06/23/2023 8:33 AM STAVE JOINTER Plan of Treatment Health Maintenance Due Date Last Done Comments HIV Screening 1981 Hepatitis C Screening 1981 Mammogram 1981 Hepatitis B Vaccines (1 of 3 - 19+ 3-dose series) 2000 Depression Screening (Annual PHQ-2) 05/30/2023 DTaP,Tdap,and Td Vaccines (3 - Td or Tdap) 10/05/2023 10/04/2013, 06/22/2011 COVID-19 Vaccine (1 - 2023- season) 2024 Influenza Vaccine (#1) 2024 , 07/02/2015, 03/11/2014, Additional history exists Cervical/Vaginal Cancer Screening 02/22/2026 02/22/2023, 03/19/2020 Lipid (Cholesterol) Screening 03/01/2028 03/01/2023 HPV Vaccines Aged Out No longer eligi ble based on patient's age to complete this topic IPV Vaccines Aged Out No longer eligi ble based on patient's age to complete this topic Pneumococcal vaccine (0-64 years) Aged Out No longer eligible based on patient's age to complete this topic Medical Devices Implanted Type Area Iv Therapy Nurse Device Identifier Shelf Expiration Date Model / Serial / Lot Gi Other GI Other Stomach Description:06/23/23. PS (Phe t). Patient could not recall approx. date of implantation. Hardware E.G. Pins/Screws/Graham s Hardware e.g. pins/screws/graham s Right: Ankle Description:06/23/23 PS (Phet ). Patient said these screws were implanted approx. 3 years ago, so approx. 2020. Intrauterine Device Intrauterine Device Uterus Insurance [facility]
--- OUTSIDE RECORDS SUMMARY | 2024-03-30 16:10 | XMS_ITS | Encounter Summary ---
Author Organization [place] Address [address] [facility] [place] [address] Care Team Providers Care Assistant Women'S Soccer Coach Name Role Phone ZohaibyanelisShirlene MD Unavailable [phone] [facility] Primary Care Provider Heidi Gunn PA-C Unavailable [phone] Burton Duncan MD Unavailable [phone] Pat Cole APRN INTEGRATED CIRCUIT LAYOUT DESIGNER Unavailable [phone] Yohana Estes-C Unavailable [phone] Letha Manzanares MD Unavailable Unavailable Corby Centeno MD Unavailable [phone] Cynthia Dubon MD Unavailable [phone] Letha Manzanares MD Unavailable Unavailable Wilma Saba MD Unavailable [phone] Jeannette Jean Baptiste NP Unavailable [phone] Cynthia Dubon MD Unavailable [phone] System, Provider Not In Primary Care Provider Un available Corby Centeno MD Unavailable Reason for Visit * Reason Onset Date Comments Patient Request 03/01/2022 Encounter Details Date Type Department Care Team (Late st Contact Info) Description 03/01/2022 [facility]phone [facility] [address] [facility] [place] [phone] Pat Cole APRN INTEGRATED CIRCUIT LAYOUT DESIGNER [address] [facility] [place] [address] Patient Request Social History Tobacco Use Types Packs/Day Years Used Date Smoking Tobacco: Every Day Cigarettes 0.5 10 Smokeless Tobacco: Never Alcohol Use Standard Drinks/Week Comments Yes 0 (1 standard drink = 0.6 oz pur e alcohol) rare PHQ-2 Answer Date Recorded PHQ-2 Score 0 11/03/2021 Comments No Sex and Gender Information Value Date Recorded Sex Assigned at Female 09/29/2020 3:49 PM CDT Legal Sex Female 4:01 AM TREATING INSPECTOR Gender Identity Female 09/29/2020 3:49 PM CDT [...] Total Score: 5 05/06/20 21 7:33 AM TREATING INSPECTOR documented as of this encounter Care Teams Assistant Women'S Soccer Coach Relationship Specialty Start Date End Date Clinic - [facility] [address] [place] [address] PCP - General Clinic 10/03/22 07/14/23 System, Provider Not In PCP - General Clinic 07/15/23 Shirlene Amos MD [address] [facility] [address] Dermatology 12/29/15 Heidi Gunn PA-C [address] [place] [address] Assigned PCP 03/08/21 05/07/22 Burton Dunacn MD [address] [place] [address] Assigned Musculoskeletal Provider 12/19/21 07/21/23 Pat Cole APRN CNP [address] [place] [address] 696275 Nurse Practitioner 01/19/22 Yohana Estes PA-C [address] [place] [address] Assigned PCP 05/08/22 06/22/23 Letha Manzanares MD [address] [place] [address] Ophthalmology 03/25/23 02/15/24 Corby Centeno MD [address] [place] [address] [id number] Dermatology 03/29/23 Cynthia Dubon MD [address] [place] [address] 369245 Cardiovascular Disease 04/19/23 Letha Manzanares MD Assigned Surgical Provider 04/23/23 11/19/23 Wilma Saba MD [address] [place], [place] [address] [id number] Assigned OBGYN Provider 04/09/23 Jeannette Jean Baptiste NP [address] [place] [address] [id number] Assigned PCP 06/23/23 Cynthia Dubon MD [address] [place] [address] 460785 Assigned Heart and Vascular Provider 07/01/23 Corby Centeno MD [address] [place] [address] [id number] Assigned Surgical Provider 11/20/23 documented as of this encounter
--- OUTSIDE RECORDS SUMMARY | 2024-03-30 16:10 | XMS_ITS | Encounter Summary ---
Author Organization [place] Address [address] [facility] [place] [address] Care Team Providers Care Casing Material Weigher Name Role Phone Shirlene Amos MD Unavailable [facility] Primary Care Provider Franklyn Chadwick DPM Unavailable [phone] Heidi Gunn PA-C Unavailable [phone] Sukumar Villarreal MD Unavailable [phone] Burton Duncan MD Unavailable [phone] Pat Cole APRN [employer] Unavailable [phone] Yohana Estes PA-C Unavailable [phone] Letha Manzanares MD Unavailable Unavailable Corby Centeno MD Unavailable [phone] Cynthia Dubon MD Unavailable Letha Manzanares MD Unavailable Unavailable Wilma Saba MD Unavailable [phone] Jeannette Jean Baptiste NP Unavailable [phone] Cynthia Dubon MD Unavailable [phone] System, Provider Not In Primary Care Provider Un available Corby Centeno MD Unavailable [phone] Encounter Details Date Type Department Care Team (Late st Contact Info) Description 11/11/2021 [facility] Medical [facility] [address] [place] [address] Geraldo Lui MA Social History [...] PM CDT Legal Sex Female 4:01 AM ASSOCIATE OF SCIENCE IN NURSING Gender Identity Female 09/29/2020 3:49 PM CDT [...] Total Score: 5 05/06/20 21 7:33 AM ASSOCIATE OF SCIENCE IN NURSING documented as of this encounter Care Teams Casing Material Weigher Relationship Specialty Start Date End Date [facility] [address] [place] [address] PCP - General Clinic 10/03/22 07/14/23 System, Provider Not In PCP - General Clinic 07/15/23 Shirlene Amos MD [address] [facility] [place] [address] Dermatology 12/29/15 Franklyn Chadwick DPM [address] [place] [address] Assigned Musculoskeletal Provider 05/18/20 11/13/21 Heidi Gunn PA-C [address] [place] [address] Assigned PCP 03/08/21 05/07/22 Sukumar Villarreal MD [address] [place], [place] [phone] Assigned Musculoskeletal Provider 11/14/21 12/18/21 Burton Duncan MD [address] [place] [address] 484551 Assigned Musculoskeletal Provider 12/19/21 07/21/23 Pat Cole APRN CNP [address] [place] [address] [phone] Nurse Practitioner 01/19/22 Yohana Estes PA-C [address] [place] [address] Assigned PCP 05/08/22 06/22/23 Letha Manzanares MD [address] [place] [address] MD Anthony 03/25/23 02/15/24 Corby Centeno MD [address] [place] [address] 219215 Dermatology 03/29/23 Cynthia Dubon MD [address] [place] [address] [phone] Cardiovascular Disease 04/19/23 Letha Manzanares MD Assigned Surgical Provider 04/23/23 11/19/23 Wilma Saba MD [address] [place], [place] [address] [address] [address] Assigned OBGYN Provider 04/09/23 Jeannette Jean Baptiste NP [address] [place] [address] [phone] Assigned PCP 06/23/23 Cynthia Dubon MD [address] [place] [address] Assigned Heart and Vascular Provider 07/01/23 Corby Centeno MD [address] [place] [address] [id number] Assigned Surgical Provider 11/20/23 documented as of this encounter
--- OUTSIDE RECORDS SUMMARY | 2024-03-30 16:10 | XMS_ITS | Encounter Summary ---
Author Organization [facility] Address [address] [facility] [place] [address] Care Team Providers Care General Internal Medicine Physician Name Role Phone ZohaibyanelisShirlene MD Unavailable [phone] [facility] Primary Care Provider Heidi Gunn PA-C Unavailable [phone] Burton Duncan MD Unavailable [phone] Pat Cole APRN JEWELRY BENCH MOLDER Unavailable [phone] Yohana Estes-C Unavailable [phone] Letha Manzanares MD Unavailable Unavailable Corby Centeno MD Unavailable [phone] Cynthia Dubon MD Unavailable [phone] Letha Manzanares MD Unavailable Unavailable Wilma Saba MD Unavailable [phone] Jeannette Jean Baptiste NP Unavailable [phone] Cynthia Dubon MD Unavailable [phone] System, Provider Not In Primary Care Provider Un available Corby Centeno MD Unavailable Reason for Visit * Reason Onset Date Comments Procedure 03/01/2022 bilateral lumbar 3,4,5 medial branch nerve blocks #1 with plan to proceed to RFA Encounter Details Date Type Department Care Team (Late st Contact Info) Description 03/01/2022 [facility] [address] [facility] [place] [phone] Pat Cole APRN JEWELRY BENCH MOLDER [address] [facility] [place] [address] Procedure ( bilateral lumbar 3,4,5 medial branch [...] PM CDT Legal Sex Female 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 [facility] Procedure ordered by Dr. Rice [...] PA is needed ?? IF SCHEDULING IN [place] AND NEEDS A PA, IT IS OKAY TO SCHEDULE. [place] HANDLES THEIR OWN PA'S AFTER THE PATIENT [...] route to Yelena Begum and PM&R Nurse [[id number]] Is an network control supervisor needed? No Patient has a drive home? [...] and note in scheduling comments.) Allergies: Mold, [place] [nuts], Claritin [loratadine], Flexeril [cyclobenzaprine], Imitrex [sumatriptan], and Morphine Does patient have an MRI/CT? YES: 2020 Check Procedure Scheduling Grid to see if required. ?? Was the MRI done within the last 3 years? Yes ?? If yes, where was the MRI done i.e.[facility], [facility], [facility], [facility] etc? [facility] ?? If no, do not schedule and route to nursing/ Dr. [facility]'s Team ?? If MRI was not done at [facility], [facility] or [facility] do NOT schedule and [...] day of the procedu re, please call [phone] to reschedule. YES: Reminders: ?? If you [...] Total Score: 5 05/06/20 21 7:33 AM CONSTRUCTION SKILLS TEACHER documented as of this encounter Care Teams General Internal Medicine Physician Relationship Specialty Start Date End Date Clinic - [facility] [address] [place] [address] PCP - General Clinic 10/03/22 07/14/23 System, Provider Not In PCP - General Clinic 07/15/23 Shirlene Amos MD [address] [facility] [place] [address] Dermatology 12/29/15 Heidi Gunn PAGuillermoC [address] [place] [address] Assigned PCP 03/08/21 05/07/22 Burton Duncan MD [address] [place] [address] Assigned Musculoskeletal Provider 12/19/21 07/21/23 Pat Cole APRN CNP [address] [place] [address] Nurse Practitioner 01/19/22 Yohana Estes PA-C [address] [place] [address] Assigned PCP 05/08/22 06/22/23 Letha Manzanares MD [address] [place] [address] MD Anthony 03/25/23 02/15/24 Corby Centeno MD [address] [place] [address] Dermatology 03/29/23 Cynthia Dubon MD [address] [place] [address] 021785 Cardiovascular Disease 04/19/23 Letha Manzanares MD Assigned Surgical Provider 04/23/23 11/19/23 Wilma Saba MD [address] 629554 Assigned OBGYN Provider 04/09/23 Jeannette Jean Baptiste, PRINT PRESS OPERATOR [address] [place] [address] 863635 Assigned PCP 06/23/23 Cynthia Dubon MD [address] [place] [address] 639065 Assigned Heart and Vascular Provider 07/01/23 Corby Centeno MD 909 [place] [address] Assigned Surgical Provider 11/20/23 documented as of this encounter
--- OUTSIDE RECORDS SUMMARY | 2024-03-30 16:10 | XMS_ITS | Encounter Summary ---
Author Organization [place] Address [address] [facility] [place] [address] Care Team Providers Care Director It Project Name Role Phone ZohaibyanelisShirlene MD Unavailable [phone] Manju Crooks BLOWER INSTALLER CNM Unavailable [facility] Primary Care Provider Franklyn Chadwick DPM Unavailable [phone] Heidi GunnC Unavailable [phone] Sukumar Villarreal MD Unavailable [phone] Burton Duncan MD Unavailable [phone] Pat Cole APRN WAITER/WAITRESS COUNTER Unavailable [phone] Yohana Estes PA-C Unavailable [phone] Letha Manzanares MD Unavailable Unavailable Corby Centeno MD Unavailable [phone] Cynthia Dubon MD Unavailable [phone] Letha Manzanares MD Unavailable Unavailable Wilma Saba MD Unavailable [phone] Jeannette Jean Baptiste NP Unavailable [phone] Cynthia Dubon MD Unavailable [phone] System, Provider Not In Primary Care Provider Un available Corby Centeno MD Unavailable [phone] Encounter Details Date Type Department Care Team (Late st Contact Info) Description 05/06/2021 [facility] [address] [place] [address] Dora Odom, CHEMICAL UNIT OPERATOR Social History Tobacco Use Types Packs/Day Years Used Date Smoking Tobacco: Every Day Cigarettes 0.5 10 Smokeless Tobacco: Never Alcohol Use Standard Drinks/Week Comments Yes 0 (1 standard drink = 0.6 oz pur e alcohol) rare PHQ-2 Answer Date Recorded PHQ-2 Score 2 05/05/2021 Comments No Sex and Gender Information Value Date Recorded Sex Assigned at Female 09/29/2020 3:49 PM CDT Legal 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 No / Unsure 05/05/2021 7:55 AM ESCALATOR MECHANIC documented as of this encounter Plan of Treatment Not on file documented as of this encounter Visit Diagnoses Not on filedocumented in this encounter Additional Health Concerns Assessment Noted Time PHQ-9 Depression Total Score: 5 05/06/20 21 7:33 AM ESCALATOR MECHANIC documented as of this encounter Care Teams Director It Project Relationship Specialty Start Date End Date Clinic - [facility] [address] [place] [address] PCP - General Clinic 10/03/22 07/14/23 System, Provider Not In PCP - General Clinic 07/15/23 Shirlene Amos MD [address] [facility] [place] [address] Dermatology 12/29/15 Manju Crooks, BLOWER INSTALLER CNM Assigned OBGYN Provider 03/21/20 09/19/21 Franklyn Chadwick DPM [address] [place] [address] Assigned Musculoskeletal Provider 05/18/20 11/13/21 Heidi Gunn PA-C [address] [place] [address] Assigned PCP 03/08/21 05/07/22 Sukumar Villarreal MD [address] [place] [address] Assigned Musculoskeletal Provider 11/14/21 12/18/21 Burton Duncan MD [address] [place] [address] 658431 Assigned Musculoskeletal Provider 12/19/21 07/21/23 Pat Cole, KATHLEEN WAITER/WAITRESS COUNTER [address] [place] [address] 601435 Nurse Practitioner 01/19/22 Yohana Estes PA-C [address] [place] [address] Assigned PCP 05/08/22 06/22/23 Letha Manzanares MD [address] [place] [address] MD Anthony 03/25/23 02/15/24 Corby Centeno MD [address] [place] [address] 107485 Dermatology 03/29/23 Cynthia Dubon MD [address] [place] [address] 889245 Cardiovascular Disease 04/19/23 Letha Manzanares MD Assigned Surgical Provider 04/23/23 11/19/23 Wilma Saba MD [address] 813994 Assigned OBGYN Provider 04/09/23 Jeannette Jean Baptiste NP [address] [place] [address] 210265 Assigned PCP 06/23/23 Cynthia Dubon MD [address] [place] [address] 910485 Assigned Heart and Vascular Provider 07/01/23 Corby Centeno MD [address] [place] [address] 070595 Assigned Surgical Provider 11/20/23 documented as of this encounter
--- OUTSIDE RECORDS SUMMARY | 2024-03-30 16:10 | XMS_ITS | Encounter Summary ---
Author Organization [place] Address [address] [facility] [place] [address] Care Team Providers Care Licensed Marine Engineer Name Role Phone ZohaibyanelisShirlene MD Unavailable [phone] [facility] Primary Care Provider Heidi Gunn PA-C Unavailable [phone] Burton Duncan MD Unavailable [phone] Pat Cole APRN ALARM INVESTIGATOR Unavailable [phone] Yohana Estes-C Unavailable [phone] Letha Manzanares MD Unavailable Unavailable Corby Centeno MD Unavailable [phone] Cynthia Dubon MD Unavailable [phone] Letha Manzanares MD Unavailable Unavailable Wilma Saba MD Unavailable [phone] Jeannetet Jean Baptiste NP Unavailable [phone] Cynthia Dubon MD Unavailable [phone] System, Provider Not In Primary Care Provider Un available Corby Centeno MD Unavailable [phone] Encounter Details Date Type Department Care Team (Late st Contact Info) Description 01/18/2022 [facility] [address] [place] [phone] [facility] Social History Tobacco Use Types Packs/Day [...] PM CDT 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 [address] [place] [address] PCP - General Clinic 10/03/22 07/14/23 System, Provider Not In PCP - General Clinic 07/15/23 Shirlene Amos MD [address] [facility] [place] [address] Dermatology 12/29/15 Heidi Gunn, PAGuillermoC [address] [place] [address] Assigned PCP 03/08/21 05/07/22 Burton Duncan MD [address] [place] [address] 744001 Assigned Musculoskeletal Provider 12/19/21 07/21/23 Pat Cole APRN ALARM INVESTIGATOR [address] [place] [address] [phone] Nurse Practitioner 01/19/22 Yohana Estes PA-C [address] [place], [place] 847580 Assigned PCP 05/08/22 06/22/23 Letha Manzanares MD [address] [place] [address] [facility] 03/25/23 02/15/24 Corby Centeno MD [address] [place] [address] 637315 Dermatology 03/29/23 Cynthia Dubon MD [address] [place] [address] 503725 Cardiovascular Disease 04/19/23 Letha Manzanares MD Assigned Surgical Provider 04/23/23 11/19/23 Wilma Saba MD [address] [place] [address] 536224 Assigned OBGYN Provider 04/09/23 Jeannette Jean Baptiste, ANGEL [address] [place] [address] Assigned PCP 06/23/23 Cynthia Dubon MD 9[address] [place], [place] 113535 Assigned Heart and Vascular Provider 07/01/23 Corby Centeno MD 909 [place] [address] Assigned Surgical Provider 11/20/23 documented as of this encounter
--- OUTSIDE RECORDS SUMMARY | 2024-03-30 16:10 | XMS_ITS | Encounter Summary ---
Author Organization [place] Address [address] [facility] [address] Care Team Providers Care Tilting Head Band Sawyer Name Role Phone BetteShirlene MD Unavailable [phone] Manju Crooks BATCH TRUCKER CNM Unavailable [facility] Primary Care Provider Zaira Queen APRN BUS CLEANER Unavailable Franklyn Chadwick DPM Unavailable [phone] Eva Echols DO Unavailable [phone] Heidi Gunn PA-C Unavailable [phone] Sukumar Villarreal MD Unavailable [phone] Burton Duncan MD Unavailable [phone] Pat Cole APRN BUS CLEANER Unavailable [phone] Yohana Estes-C Unavailable [phone] Letha Manzanares MD Unavailable Unavailable Corby Centeno MD Unavailable [phone] Cynthia Dubon MD Unavailable [phone] Letha Manzanares MD Unavailable Unavailable Wilma Saba MD Unavailable [phone] Jeannette Jean Baptiste NP Unavailable [phone] Cynthia Dubon MD Unavailable [phone] System, Provider Not In Primary Care Provider Un available Corby Centeno MD Unavailable [phone] Reason for Referral * Diagnostic Imaging Ultrasound (Routine) - Closed Specialty Diagnoses / Procedures Referred By Contac t Referred To Contact Diagnoses Pelvic cramping Procedures US Pelvic Complete with Transvaginal Zaira Queen APRN CNP Phone: tel: fax: Referral ID Status Reason Start Date Expiration Date Visits Re quested Visits Authorized [id number] Closed 08/28/2020 08/28/2021 1 1 * (Routine) - Closed Specialty Diagnoses / Procedures Referred By Contac t Referred To Contact Gastroenterology Diagnoses LUQ abdominal pain Epigastric pain Zaira Queen APRN CNP Phone: tel: fax: Referral ID Status Reason Start Date Expiration Date Visits Re quested Visits Authorized [id number] Closed 08/27/2020 08/27/2021 1 1 Scheduling Instructions If EUS or ERCP is selected, it requires clinical review prior to scheduling. Question Answer Procedure: Upper Endoscopy Upper Endoscopy Type: EGD Upper Endoscopy Sedation: Conscious/Moderate Upper Endoscopy Reason for Procedure: LUQ/epigastric pain after eating, CT unremarkable Preferred Location: [facility] Scheduling Instructions: If you have not heard from the scheduling office within 2 business days, please call [phone]. Comments Please be aware that coverage of these services is subject to the terms and limitations of your health insurance plan. Call member services at your health plan with any benefit or coverage questions. If you have not heard from the scheduling office within 2 business days, please call [phone]. 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 JACE HOWARD MD Zaira Queen APRN [facility] US ORDERA BLES Final Result documented in this encounter Visit Diagnoses Diagnosis [...] documented as of this encounter Care Teams Tilting Head Band Sawyer Relationship Specialty Start Date End Date Clinic - [facility] [id number] [place] [address] PCP - General Clinic 10/03/22 07/14/23 System, Provider Not In PCP - General Clinic 07/15/23 Shirlene Amos MD [address] [facility] [place] [address] Dermatology 12/29/15 Manju Crooks APRN [facility] Assigned OBGYN Provider 03/21/20 09/19/21 Zaira Queen APRN BUS CLEANER [address] [place] [address] Assigned PCP 05/04/20 03/07/21 Franklyn Chadwick DPM [address] [facility] [place] [address] Assigned Musculoskeletal Provider 05/18/20 11/13/21 [place] [address] [place] [address] Assigned Gastroenterology Provider 11/23/20 12/20/20 Heidi Gunn PA-C [address] [place] [address] Assigned PCP 03/08/21 05/07/22 Sukumar Villarreal MD [address] [place], [place] 410802 Assigned Musculoskeletal Provider 11/14/21 12/18/21 Burton Duncan MD [address] [place] [address] Assigned Musculoskeletal Provider 12/19/21 07/21/23 Pat Cole APRN BUS CLEANER 9[address] [place], [place] 154905 Nurse Practitioner 01/19/22 Yohana Estes PA-C 290 [place] [address] Assigned PCP 05/08/22 06/22/23 Letha Manzanares MD [address] [place] [address] [place] Ophthalmology 03/25/23 02/15/24 Corby Centeno MD [address] [place] [address] MD Dermatology 03/29/23 Cynthia Dubon MD [address] [place] [address] Cardiovascular Disease 04/19/23 Letha Manzanares MD Assigned Surgical Provider 04/23/23 11/19/23 Wilma Saba MD [address] 287574 Assigned OBGYN Provider 04/09/23 Jeannette Jean Baptiste NP [address] [place] [address] Assigned PCP 06/23/23 Cynthia Dubon MD [address] [place] [address] Assigned Heart and Vascular Provider 07/01/23 Corby Centeno MD [address] [place] [address] Assigned Surgical Provider 11/20/23 documented as of this encounter
--- OUTSIDE RECORDS SUMMARY | 2024-03-30 16:10 | XMS_ITS | Encounter Summary ---
Author Organization [place] Address [address] [facility] [place] [address] Care Team Providers Care Dough Braker Name Role Phone Shirlene Amos MD Unavailable [phone] [facility] Primary Care Provider Burton Duncan MD Unavailable [phone] Pat Cole APRN BALLISTICS EXPERT FORENSIC Unavailable [phone] Yohana Estes PA-C Unavailable [phone] Letha Manzanares MD Unavailable Unavailable Corby Centeno MD Unavailable [phone] Cynthia Dubon MD Unavailable [phone] Letha Manzanares MD Unavailable Unavailable Wilma Saba MD Unavailable [phone] Jeannette Jean Baptiste NP Unavailable [phone] Cynthia Dubon MD Unavailable [phone] System, Provider Not In Primary Care Provider Un available Corby Centeno MD Unavailable [phone] Encounter Details Date Type Department Care Team (Late st Contact Info) Description 04/29/2023 MyC Medical Advice [facility] [address] Floor,[address] [place] [facility] [address] [place] [address] Luz Alva CMA Social History [...] PM CDT Legal Sex Female 4:01 AM BUGGYMAN Gender Identity Female 09/29/2020 3:49 PM CDT Sexual Orientation Straight 09/29/2020 3: 49 PM CDT documented as of this encounter Plan of Treatment Not on file documented as of this encounter Visit Diagnoses Not on filedocumented in this encounter Additional Health Concerns Assessment Noted Time PHQ-9 Depression Total Score: 1 04/07/20 23 7:51 AM BUGGYMAN documented as of this encounter Care Teams Dough Braker Relationship Specialty Start Date End Date [facility] [address] [place] [address] PCP - General Clinic 10/03/22 07/14/23 System, Provider Not In PCP - General Clinic 07/15/23 Shirlene Amos MD [address] [facility] [place] [address] Dermatology 12/29/15 Burton Duncan MD [address] [place] [address] Assigned Musculoskeletal Provider 12/19/21 07/21/23 Pat Cole APRN CNP [address] [place] [address] Nurse Practitioner 01/19/22 Yohana Estes PA-C [address] [place] [address] Assigned PCP 05/08/22 06/22/23 Letha Manzanares MD [address] [place] [address] Ophthalmology 03/25/23 02/15/24 Corby Centeno MD [address] [place] [address] 600435 Dermatology 03/29/23 Cynthia Dubon MD [address] [place] [address] 704685 Cardiovascular Disease 04/19/23 Letha Manzanares MD Assigned Surgical Provider 04/23/23 11/19/23 Wilma Saba MD [address] [facility] [address] [place] [address] Assigned OBGYN Provider 04/09/23 Jeannette Jean Baptiste NP [address] [address] Assigned PCP 06/23/23 Cynthia Dubon MD [address] [place] [address] Assigned Heart and Vascular Provider 07/01/23 Corby Centeno MD [address] [place] [address] [id number] Assigned Surgical Provider 11/20/23 documented as of this encounter
--- OUTSIDE RECORDS SUMMARY | 2024-03-30 16:10 | XMS_ITS | Encounter Summary ---
Author Organization [place] Address [address] [place] [address] Care Team Providers Care Size Tester Name Role Phone BetteShirlene MD Unavailable [phone] [facility] Primary Care Provider Burton Duncan MD Unavailable [phone] Pat Cole APRN STRAW HAT MACHINE OPERATOR Unavailable [phone] Yohana Estes PA-C Unavailable [phone] Letha Manzanares MD Unavailable Unavailable Corby Centeno MD Unavailable [phone] Cynthia Dubon MD Unavailable [phone] Letha Manzanares MD Unavailable Unavailable Wilma Saba MD Unavailable [phone] Jeannette Jean Baptiste NP Unavailable [phone] Cynthia Dubon MD Unavailable [phone] System, Provider Not In Primary Care Provider Un available Corby Centeno MD Unavailable [phone] Reason for Visit * Reason Onset Date Comments Appointment 04/07/2023 IUD under anesth esia Encounter Details Date Type Department Care Team (Late st Contact Info) Description 04/07/2023 Telephone [facility] [place] [address] [place] [facility] [address] [place] [address] Wilma Saba MD [address] [place] [address] [place] [address] Appointment (IUD under anesthesia ) [...] in an abandoned building, in an overnight assisted, or couch-surfing.) Yes 02/22/2023 Are you worried [...] PM CDT Legal Sex Female 4:01 AM AGRICULTURAL EXTENSION AGENT Gender Identity Female 09/29/2020 3:49 PM CDT Sexual Orientation Straight 09/29/2020 3: 49 PM CDT documented as of this encounter Miscellaneous Notes * Telephone Encounter - Hannah Welchie - 04/07/2023 12:21 PM CST [facility] Call Center Phone Message May a detailed message be left on voicemail: yes Reason for Call: Appointment Intake Referring Provider Name: Jeannette Jean Baptiste NP Diagnosis and/or Symptoms: IUD placement under anesthesia Please call pt to schedule an IUD placement under anesthesia, thank you! Action Taken: Other: whs saddle and harness maker Screening: Not Applicable CULTURAL EXTENSION AGENT documented in this encounter Plan of Treatment Not on file documented as of this encounter Visit Diagnoses Not on filedocumented in this encounter Additional Health Concerns Assessment Noted Time PHQ-9 Depression Total Score: 1 04/07/20 7:51 AM AGRICULTURAL EXTENSION AGENT documented as of this encounter Care Teams Size Tester Relationship Specialty Start Date End Date Clinic - [address] [address] PCP - General Clinic 10/03/22 07/14/23 System, Provider Not In PCP - General Clinic 07/15/23 [place] [address] [place] [address] [place] [address] Dermatology 12/29/15 Burton Duncan MD [address] [place] [address] Assigned Musculoskeletal Provider 12/19/21 07/21/23 Pat Cole APRN STRAW HAT MACHINE OPERATOR 909 [place] [address] Nurse Practitioner 01/19/22 Yohana Estes PA-C 290 [place] [address] Assigned PCP 05/08/22 06/22/23 Letha Manzanares MD [address] [place] [address] [place] 03/25/23 02/15/24 Corby Centeno MD [address] [place] [address] MD Dermatology 03/29/23 Cynthia Dubon MD [address] [place] [address] [id number] Cardiovascular Disease 04/19/23 Letha Manzanares MD Assigned Surgical Provider 04/23/23 11/19/23 Wilma Saba MD [address] 971734 Assigned OBGYN Provider 04/09/23 Jeannette Jean Baptiste NP [address] [place] [address] Assigned PCP 06/23/23 Cynthia Dubon MD [address] [place] [address] 385155 Assigned Heart and Vascular Provider 07/01/23 Corby Centeno MD [address] [place] [address] 563175 Assigned Surgical Provider 11/20/23 documented as of this encounter
--- OUTSIDE RECORDS SUMMARY | 2024-03-30 16:10 | XMS_ITS | Encounter Summary ---
Author Organization [place] Address [address] [facility] [place] [address] Care Team Providers Care Spout Tender Name Role Phone Shirlene Amos MD Unavailable [phone] [facility] Primary Care Provider Burton Duncan MD Unavailable [phone] Pat Cole APRN PICK UP ATTENDANT Unavailable [phone] Yohana Estes PA-C Unavailable [phone] Letha Manzanares MD Unavailable Unavailable Corby Centeno MD Unavailable [phone] Cynthia Dubon MD Unavailable [phone] Letha Manzanares MD Unavailable Unavailable Wilma Saba MD Unavailable [phone] Jeannette Jean Baptiste NP Unavailable [phone] Cynthia Dubon MD Unavailable [phone] System, Provider Not In Primary Care Provider Un available Corby Centeno MD Unavailable [phone] Encounter Details Date Type Department Care Team (Late st Contact Info) Description 05/11/2023 MyC Medical Advice [facility] [address] 5[address] [place] [address] Rosa Reyes CMA Social History [...] PM CDT Legal Sex Female 4:01 AM REGISTERED SAFETY 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 Gender Identity Female 09/29/2020 3:49 PM CDT Sexual Orientation Straight 09/29/2020 3: 49 PM CDT documented as of this encounter Plan of Treatment Not on file documented as of this encounter Visit Diagnoses Not on filedocumented in this encounter Additional Health Concerns Assessment Noted Time PHQ-9 Depression Total Score: 1 04/07/20 7:51 AM REGISTERED SAFETY ENGINEER documented as of this encounter Care Teams Spout Tender Relationship Specialty Start Date End Date Clinic - [facility] [address] [place] [address] PCP - General Clinic 10/03/22 07/14/23 System, Provider Not In PCP - General Clinic 07/15/23 Shirlene Amos MD [address] [place] [address] Dermatology 12/29/15 Burton Duncan MD [address] [place] [address] Assigned Musculoskeletal Provider 12/19/21 07/21/23 Pat Cole APRN CNP [address] [place] [address] 615065 Nurse Practitioner 01/19/22 Yohana Estes PA-C [address] [place] [address] Assigned PCP 05/08/22 06/22/23 Letha Manzanares MD [address] [place] [address] Ophthalmology 03/25/23 02/15/24 Corby Centeno MD [address] [place] [address] 399615 Dermatology 03/29/23 Cynthia Dubon MD [address] [place] [address] 523345 Cardiovascular Disease 04/19/23 Letha Manzanares MD Assigned Surgical Provider 04/23/23 11/19/23 Wilma Saba MD [address] [place], [place] [address] Assigned OBGYN Provider 04/09/23 Jeannette Jean Baptiste NP [address] 200075 Assigned PCP 06/23/23 Cynthia Dubon MD [address] [place] [address] Assigned Heart and Vascular Provider 07/01/23 Corby Centeno MD [address] [place] [address] [phone] Assigned Surgical Provider 11/20/23 documented as of this encounter
--- OUTSIDE RECORDS SUMMARY | 2024-03-30 16:10 | XMS_ITS | Encounter Summary ---
Author Organization [place] Address [address] [place] [address] Care Team Providers Care Counter Cutter Name Role Phone Shirlene Amos MD Unavailable [phone] [facility] Primary Care Provider Franklyn Chadwick DPM Unavailable +[phone] Heidi Gunn PA-C Unavailable [phone] Sukumar Villarreal MD Unavailable [phone] Burton Duncan MD Unavailable [phone] Pat Cole APRN FACTORY LABORER Unavailable [phone] Yohana Estes PA-C Unavailable [phone] Letha Manzanares MD Unavailable Unavailable Corby Centeno MD Unavailable [phone] Cynthia Dubon MD Unavailable [phone] Letha Manzanares MD Unavailable Unavailable Wilma Saba MD Unavailable [phone] Jeannette Jean Baptiste NP Unavailable [phone] Cynthia Dubon MD Unavailable [phone] System, Provider Not In Primary Care Provider Un available Corby Centeno MD Unavailable [phone] Encounter Details Date Type Department Care Team (Late st Contact Info) Description 11/11/2021 [facility] [place] [address] [place] [address] Geraldo Lui MA Social History [...] PM CDT Legal Sex Female 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 [address] [place] [address] PCP - General Clinic 10/03/22 07/14/23 System, Provider Not In PCP - General Clinic 07/15/23 Shirlene Amos MD [address] [facility] [place] [address] Dermatology 12/29/15 Franklyn Chadwick DPM [address] [address] Assigned Musculoskeletal Provider 05/18/20 11/13/21 Heidi Gunn PA-C [address] [place] [address] Assigned PCP 03/08/21 05/07/22 Sukumar Villarreal MD 6[address] [place], [place] 658862 Assigned Musculoskeletal Provider 11/14/21 12/18/21 Burton Duncan MD [address] [place] [address] 472641 Assigned Musculoskeletal Provider 12/19/21 07/21/23 Pat Cole APRN CNP [address] [place] [address] 099525 Nurse Practitioner 01/19/22 Yohana Estes PA-C [address] [place] [address] Assigned PCP 05/08/22 06/22/23 Letha Manzanares MD [address] [place] [address] MD Anthony 03/25/23 02/15/24 Corby Centeno MD [address] [place] [address] 779265 Dermatology 03/29/23 Cynthia Dubon MD [address] [place] [address] 094675 Cardiovascular Disease 04/19/23 Letha Manzanares MD Assigned Surgical Provider 04/23/23 11/19/23 Wilma Saba MD [address] [place], [place] [address] [address] Assigned OBGYN Provider 04/09/23 Jeannette Jean Baptiste NP [address] [place] [address] [phone] Assigned PCP 06/23/23 Cynthia Dubon MD [address] [place] [address] Assigned Heart and Vascular Provider 07/01/23 Corby Centeno MD [address] [place] [address] 449465 Assigned Surgical Provider 11/20/23 documented as of this encounter
--- OUTSIDE RECORDS SUMMARY | 2024-03-30 16:10 | XMS_ITS | Encounter Summary ---
Author Organization [place] Address [address] [facility] [place] [address] Care Team Providers Care Analysis Specialist Name Role Phone Olga Sandoval MD Primary Care Provider Shirlene Amos MD Unavailable [phone] Pat Mayorga PA-C Unavailable [phone] [place] [address] Primary Care Provider Heidi Gunn PA-C Primary Care Provider [phone] Heidi Gunn-C Unavailable [phone] Manju Crooks APRN CNM Unavailable [facility] Primary Care Provider Zaira Queen APRN INSURANCE SERVICE REPRESENTATIVE Unavailable Franklyn Chadwick DPM Unavailable [phone] Eva Echols DO Unavailable [phone] Heidi Gunn-C Unavailable [phone] Sukumar Villarreal MD Unavailable [phone] Burton Duncan MD Unavailable [phone] Pat Cole APRN INSURANCE SERVICE REPRESENTATIVE Unavailable [phone] Yohana Estes PA-C Unavailable [phone] Letha Manzanares MD Unavailable Unavailable Corby Centeno MD Unavailable [phone] Cynthia Dubon MD Unavailable Letha Manzanares MD Unavailable Unavailable Wilma Saba MD Unavailable [phone] Jeannette Jean Baptiste NP Unavailable [phone] Cynthia Dubon MD Unavailable [phone] System, Provider Not In Primary Care Provider Un available Corby Centeno MD Unavailable [phone] Reason for Visit * Reason Onset Date Comments Forms 08/07/2018 Encounter Details Date Type Department Care Team (Late st Contact Info) Description 08/07/[address] [place] [address] [place] [address] [facility] [address] [place], [place] [phone] Forms Social History Tobacco Use Types Packs/Day Years Used Date Smoking Tobacco: Every Day Cigarettes 0.5 10 Smokeless Tobacco: Never Alcohol Use Standard Drinks/Week Comments No 0 (1 standard drink = 0.6 oz pure alcohol) occasional- last drink was last night PHQ-2 Answer Date Recorded PHQ-2 Score 0 06/28/2018 Comments No Sex and Gender Information Value Date Recorded Sex Assigned at Female 09/29/2020 3:49 PM CDT Legal Sex Female 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 Please sign and fax back Call taken on 08/07/2018 at 10:36 AM by Shirley Benoit documented in this encounter Plan of Treatment Not on file documented as of this encounter Visit Diagnoses Not on filedocumented in this encounter Additional Health Concerns Assessment Noted Time PHQ-9 Depression Total Score: 4 04/13/20 16 7:37 AM DYE AUTOMATION OPERATOR documented as of this encounter Care Teams Analysis Specialist Relationship Specialty Start Date End Date Olga Sandoval MD [address] [place] [address] PCP - General Family Practice 06/26/14 06/14/19 [facility] [address] [place] [address] PCP - General 06/15/19 06/19/19 Heidi Gunn PA-C [address] [place] [address] PCP - General Physician Business Records Manager - Medical 06/20/19 04/29/20 [facility] [address] [place] [address] PCP - General Clinic 10/03/22 07/14/23 System, Provider Not In PCP - General Clinic 07/15/23 Shirlene Amos MD [address] [facility] [place] [address] Dermatology 12/29/15 Pat Mayorga PA-C [address] [facility] [place] [address] Assigned PCP 07/02/18 06/23/19 Heidi Gunn PA-C [address] [facility] [address] Assigned PCP 06/24/19 05/03/20 Manju Crooks, PRODUCTION CONTROL MANAGER CNM Assigned OBGYN Provider 03/21/20 09/19/21 Zaira Queen, PRODUCTION CONTROL MANAGER INSURANCE SERVICE REPRESENTATIVE [address] [facility] [address] Assigned PCP 05/04/20 03/07/21 Franklyn Chadwick DPM [address] [facility] [place] [address] Assigned Musculoskeletal Provider 05/18/20 11/13/21 [place] [address] [place] [address] Assigned Gastroenterology Provider 11/23/20 12/20/20 Heidi Gunn PA-C [address] [facility] [place] [address] Assigned PCP 03/08/21 05/07/22 Sukumar Villarreal MD [address] [place] [address] Assigned Musculoskeletal Provider 11/14/21 12/18/21 Burton Duncan MD [address] [place] [address] Assigned Musculoskeletal Provider 12/19/21 07/21/23 Pat Cole APRN INSURANCE SERVICE REPRESENTATIVE [address] [place] [address] 922025 Nurse Practitioner 01/19/22 Yohana Estes PA-C [address] [place], [place] 186220 Assigned PCP 05/08/22 06/22/23 Letha Manzanares MD [address] [place] [address] Ophthalmology 03/25/23 02/15/24 Corby Centeno MD [address] [place] [address] 625725 Dermatology 03/29/23 Cynthia Dubon MD [address] [place] [address] 807765 Cardiovascular Disease 04/19/23 Letha Manzanares MD Assigned Surgical Provider 04/23/23 11/19/23 Wilma Saba MD [address] [place] [address] 688954 Assigned OBGYN Provider 04/09/23 Jeannette Jean Baptiste, RETIREMENT PLAN COUNSELOR [address] [address] Assigned PCP 06/23/23 Cynthia Dubon MD [address] [place] [address] 976685 Assigned Heart and Vascular Provider 07/01/23 Corby Centeno MD [address] [place] [address] Assigned Surgical Provider 11/20/23 documented as of this encounter
--- OUTSIDE RECORDS SUMMARY | 2024-03-30 16:10 | XMS_ITS | Encounter Summary ---
Author Organization [place] Address [address] [facility] [place] [address] Care Team Providers Care Air Duct Mechanic Name Role Phone ZohaibyanelisShirlene MD Unavailable [phone] [facility] Primary Care Provider Heidi Gunn PA-C Unavailable [phone] Burton Duncan MD Unavailable [phone] Pat Cole APRN CLINIC LICENSED PRACTICAL NURSE Unavailable [phone] Yohana Estes-C Unavailable [phone] Letha Manzanares MD Unavailable Unavailable Corby Centeno MD Unavailable [phone] Cynthia Dubon MD Unavailable [phone] Letha Manzanares MD Unavailable Unavailable Wilma Saba MD Unavailable [phone] Jeannette Jean Baptiste NP Unavailable [phone] Cynthia Dubno MD Unavailable [phone] System, Provider Not In Primary Care Provider Un available Corby Centeno MD Unavailable Encounter Details Date Type Department Care Team (Late st Contact Info) Description 02/15/2022 MyC Medical Advice [facility] [address] [place] [phone] [place] Social History Tobacco Use Types [...] PM CDT Legal Sex Female 4:01 AM 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 Gender Identity Female 09/29/2020 3:49 PM CDT [...] Total Score: 5 05/06/20 21 7:33 AM 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 documented as of this encounter Care Teams Air Duct Mechanic Relationship Specialty Start Date End Date Clinic - [facility] [address] [place] [address] PCP - General Clinic 10/03/22 07/14/23 System, Provider Not In PCP - General Clinic 07/15/23 Shirlene Amos MD [address] [facility] [place] [address] Dermatology 12/29/15 Heidi Gunn PAGuillermoC [address] [place] [id number] Assigned PCP 03/08/21 05/07/22 Burton Duncan MD [address] [place] [address] 064561 Assigned Musculoskeletal Provider 12/19/21 07/21/23 Pat Cole APRN CLINIC LICENSED PRACTICAL NURSE [address] [place] [address] 562215 Nurse Practitioner 01/19/22 Yohana Estes PA-C [address] [place], [place] 252460 Assigned PCP 05/08/22 06/22/23 Letha Manzanares MD [address] [place] [address] [facility] 03/25/23 02/15/24 Corby Centeno MD [address] [place] [address] 079205 Dermatology 03/29/23 Cynthia Dubon MD [address] [place] [address] 651675 Cardiovascular Disease 04/19/23 Letha Manzanares MD Assigned Surgical Provider 04/23/23 11/19/23 Wilma Saba MD [address] [place] [address] 135894 Assigned OBGYN Provider 04/09/23 Jeannette Jean Baptiste NP [address] [place] [address] Assigned PCP 06/23/23 Cynthia Dubon MD 909 [place], [place] 994045 Assigned Heart and Vascular Provider 07/01/23 Corby Centeno MD 909 [place] [address] Assigned Surgical Provider 11/20/23 documented as of this encounter
--- OUTSIDE RECORDS SUMMARY | 2024-03-30 16:10 | XMS_ITS | Encounter Summary ---
Author Organization [place] Address [address] [facility] [address] Care Team Providers Care Christmas Tree Farm Manager Name Role Phone BetteShirlene MD Unavailable [phone] Manju Crooks CORRECTIONAL MANAGER CNM Unavailable [facility] Primary Care Provider Zaira Queen APRN LEAD SECTION SUPERVISOR Unavailable Franklyn Chadwick DPM Unavailable +[phone] Eva Echols DO Unavailable +[phone] Heidi Gunn PA-C Unavailable [phone] Sukumar Villarreal MD Unavailable +[phone] Burton Duncan MD Unavailable [phone] Pat Cole APRN LEAD SECTION SUPERVISOR Unavailable [phone] Yohana Estes-C Unavailable [phone] Letha Manzanares MD Unavailable Unavailable Corby Centeno MD Unavailable [phone] Cynthia Dubon MD Unavailable [phone] Letha Manzanares MD Unavailable Unavailable Wilma Saba MD Unavailable +[phone] Jeannette Jean Baptiste NP Unavailable [phone] Cynthia Dubon MD Unavailable [phone] System, Provider Not In Primary Care Provider Un available Corby Centeno MD Unavailable +[phone] Reason for Referral * Diagnostic Imaging CT Scan (Routine) - Closed Specialty Diagnoses / Procedures Referred By Contmoises t Referred To Contact Radiology. Diagnoses LUQ abdominal pain Procedures CT Abdomen Pelvis w Contrast Zaira Queen APRN LEAD SECTION SUPERVISOR Phone: tel: fax: [facility] [address] [place] [phone] Phone: tel: Referral ID Status Reason Start Date Expiration Date Visits Re quested Visits Authorized [id number] Closed 08/25/2020 08/25/2021 1 1 Encounter Details Date Type Department Care Team (Late st Contact Info) Description 08/25/2020 MyC Medical Advice [facility] 290 [facility] 100 [place] [phone] Zaira Queen APRN LEAD SECTION SUPERVISOR [address] [place] [address] LUQ abdominal pain (Primary Dx) Social History [...] PM CDT Legal Sex Female 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 Delaney Ibarra CMA ([facility]) * Telephone Encounter - Rylie Campbell - 08/25/2020 10:58 AM CDT Replied via [email or web address]. CHUCKIE Odonnell/Deanna Escobar [facility] documented in this encounter Plan of [...] study. JACE HOWARD MD Zaira Queen APRN LEAD SECTION SUPERVISOR IMG CT ORDERA BLES Final Result documented in this encounter Visit Diagnoses Diagnosis LUQ abdominal pain- Primary Abdominal pain, left upper quadrant LUQ abdominal pain Abdominal pain, left upper quadrant documented in this encounter Additional Health Concerns Assessment Noted Time PHQ-9 Depression Total Score: 1 08/21/19 21 7:02 AM CDT documented as of this encounter Care Teams Christmas Tree Farm Manager Relationship Specialty Start Date End Date Clinic - [facility] [address] [place] [address] PCP - General Clinic 10/03/22 07/14/23 System, Provider Not In PCP - General Clinic 07/15/23 Shirlene Amos MD [address] [facility] [place] [address] Dermatology 12/29/15 Manju Crooks CORRECTIONAL MANAGER CNM Assigned OBGYN Provider 03/21/20 09/19/21 Zaira Queen APRN LEAD SECTION SUPERVISOR [address] [place] [address] Assigned PCP 05/04/20 03/07/21 Franklyn Chadwick DPM 9 [facility] [place] [address] Assigned Musculoskeletal Provider 05/18/20 11/13/21 [place] [address] [place] [address] Assigned Gastroenterology Provider 11/23/20 12/20/20 Heidi Gunn, PAGuillermoC [address] [place] [address] Assigned PCP 03/08/21 05/07/22 Sukumar Villarreal MD [address] [place] [address] Assigned Musculoskeletal Provider 11/14/21 12/18/21 Burton Duncan MD [address] [place] [address] Assigned Musculoskeletal Provider 12/19/21 07/21/23 Pat Cole APRN CNP [address] [place] [address] Nurse Practitioner 01/19/22 Yohana Estes PA-C 290 [place] [address] Assigned PCP 05/08/22 06/22/23 Letha Manzanares MD [address] [place] [address] Ophthalmology 03/25/23 02/15/24 Corby Centeno MD [address] [place] [address] Dermatology 03/29/23 Cynthia Dubon MD [address] [place] [address] Cardiovascular Disease 04/19/23 Letha Manzanares MD Assigned Surgical Provider 04/23/23 11/19/23 Wilma Saba MD [address] [place] [address] 135864 Assigned OBGYN Provider 04/09/23 Jeannette Jean Bpatiste NP [address] 829845 Assigned PCP 06/23/23 Cyntiha Dubon MD 9 [place], [place] 92470455 Assigned Heart and Vascular Provider 07/01/23 Corby Centeno MD [address] [place] [address] [phone] Assigned Surgical Provider 11/20/23 documented as of this encounter
--- OUTSIDE RECORDS SUMMARY | 2024-03-30 16:10 | XMS_ITS | Encounter Summary ---
Author Organization [place] Address [address] [facility] [place] [address] Care Team Providers Care Director Personal Name Role Phone Shirlene Amos MD Unavailable Heidi GunnC Primary Care Provider [phone] Heidi GunnC Unavailable [phone] Manju Crooks CHARTER AND TOUR BUS DRIVER CNM Unavailable [facility] Provider Zaira Queen CHARTER AND TOUR BUS DRIVER MALT LOADER Unavailable Franklyn Chadwick DPM Unavailable +[phone] Eva Echols DO Unavailable [phone] Heidi GunnC Unavailable [phone] Sukumar Villarreal MD Unavailable +[phone] Burton Duncan MD Unavailable [phone] Pat Cole APRN MALT LOADER Unavailable +[phone] Yohana Estes PA-C Unavailable [phone] Letha Manzanares MD Unavailable Unavailable Corby Centeno MD Unavailable +[phone] Cynthia Dubon MD Unavailable [phone] Letha Manzanares MD Unavailable Unavailable Wilma Saba MD Unavailable +[phone] Jeannette Jean Baptiste ANGEL Unavailable +[phone] Cynthia Dubon MD Unavailable [phone] System, Provider Not In Primary Care Provider Un available Corby Centeno MD Unavailable [phone] Reason for Visit * Reason Onset Date Comments Outreach 07/06/2019 [facility] Cervical/PAP ATT 1 Encounter Details Date Type Department Care Team (Late st Contact Info) Description 07/06/2019 Telephone [facility] [address] [place] [address] Heidi Gunn PA-C [address] [place], [place] [id number] Outreach (PHS Cervical/PAP ATT 1) Social History [...] PM CDT 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 Gender Identity Female 09/29/2020 3:49 PM CDT Sexual Orientation Straight 09/29/2020 3: 49 PM CDT documented as of this encounter Miscellaneous Notes * Telephone Encounter - Shirlene Mendoza - 07/06/2019 2:32 PM CST 07/06/2019 Call Regarding Preventive Health Screening Cervical/PAP Attempt 1 Message on voicemail Comments: Outreach Solar Panel Installer CS SHARPSHOOTER documented in this encounter Plan of Treatment Not on file documented as of this encounter Visit Diagnoses Not on filedocumented in this encounter Additional Health Concerns Assessment Noted Time PHQ-9 Depression Total Score: 4 04/13/20 16 7:37 AM FBI SHARPSHOOTER documented as of this encounter Care Teams Director Personal Relationship Specialty Start Date End Date Heidi Gunn PA-C [address] [place] [address] PCP - General Physician Customer Service Receptionist - Medical 06/20/19 04/29/20 Clinic [facility] [address] [facility] [place] [address] PCP - General Clinic 10/03/22 07/14/23 System, Provider Not In PCP - General Clinic 07/15/23 Shirlene Amos MD [address] [place] [address] Dermatology 12/29/15 Heidi Gunn PA-C [address] [place] [address] Assigned PCP 06/24/19 05/03/20 Manju Crooks CHARTER AND TOUR BUS DRIVER CNM Assigned OBGYN Provider 03/21/20 09/19/21 Zaira Queen APRN MALT LOADER [address] [place] [address] Assigned PCP 05/04/20 03/07/21 Franklyn Chadwick DPM [address] [facility] [place] [address] Assigned Musculoskeletal Provider 05/18/20 11/13/21 [place] [address] [address], [place] [address] Assigned Gastroenterology Provider 11/23/20 12/20/20 Heidi Gunn PA-C [address] [place] [address] Assigned PCP 03/08/21 05/07/22 Sukumar Villarreal MD 6341 [place] [address] Assigned Musculoskeletal Provider 11/14/21 12/18/21 Burton Duncan MD 4000 [place], [place] 152681 Assigned Musculoskeletal Provider 12/19/21 07/21/23 Pat Cole APRN CNP [address] [place] [address] [id number] Nurse Practitioner 01/19/22 Yohana Estes PA-C 290 [place] [address] Assigned PCP 05/08/22 06/22/23 Letha Manzanares MD 290 [place] [address] MD Anthony 03/25/23 02/15/24 Corby Centeno MD [address] [place] [address] MD [place] 03/29/23 Cynthia Dubon MD [address] [place] [address] Cardiovascular Disease 04/19/23 Letha Manzanares MD Assigned Surgical Provider 04/23/23 11/19/23 Wilma Saba MD [address] [place], [place] 153274 Assigned OBGYN Provider 04/09/23 Jeannette Jean Baptiste DENTAL SCHEDULER [address] [place] [address] 558145 Assigned PCP 06/23/23 Cynthia Dubon MD [address] [place] [address] 433885 Assigned Heart and Vascular Provider 07/01/23 Corby Centeno MD 9 [place] [address] Assigned Surgical Provider 11/20/23 documented as of this encounter
--- OUTSIDE RECORDS SUMMARY | 2024-03-30 16:10 | XMS_ITS | Encounter Summary ---
Author Organization [place] Address [address] [facility] [place] [address] Care Team Providers Care Director Compensation Name Role Phone BetteShirlene MD Unavailable [phone] Manju Crooks VBA PROGRAMMER CNM Unavailable [facility] Primary Care Provider Zaira Queen APRN CAR PICK UP DRIVER Unavailable Franklyn Chadwick DPM Unavailable [phone] Eva Echols DO Unavailable [phone] Heidi Gunn PA-C Unavailable [phone] Sukumar Villarreal MD Unavailable [phone] Burton Duncan MD Unavailable [phone] Pat Cole APRN CAR PICK UP DRIVER Unavailable [phone] Yohana Estes-C Unavailable [phone] Letha Manzanares MD Unavailable Unavailable Corby Centeno MD Unavailable +[phone] Cynthia Dubon MD Unavailable [phone] Letha Manzanares MD Unavailable Unavailable Wilma Saba MD Unavailable +[phone] Jeannette Jean Baptiste NP Unavailable [phone] Cynthia Dubon MD Unavailable [phone] System, Provider Not In Primary Care Provider Un available Corby Centeno MD Unavailable [phone] Encounter Details Date Type Department Care Team (Late st Contact Info) Description 09/05/2020 [facility] [address] [facility] [address] [place] [address] Zaira Queen APRN CAR PICK UP DRIVER [address] [place] [address] Social History Tobacco Use Types [...] PM CDT 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 Gender Identity Female 09/29/2020 3:49 PM CDT [...] as of this encounter Care Teams Director Compensation Relationship Specialty Start Date End Date Clinic - [facility] [address] [place] [address] PCP - General Clinic 10/03/22 07/14/23 System, Provider Not In PCP - General Clinic 07/15/23 Shirlene Amos MD [address] [place] [address] Dermatology 12/29/15 Manju Crooks, VBA PROGRAMMER CNM Assigned OBGYN Provider 03/21/20 09/19/21 Zaira Queen APRN CAR PICK UP DRIVER [address] [place] [address] Assigned PCP 05/04/20 03/07/21 Franklyn Chadwick DPM [address] [place] [address] [place] [address] Assigned Musculoskeletal Provider 05/18/20 11/13/21 [place] [address] [place] [address] Assigned Gastroenterology Provider 11/23/20 12/20/20 Heidi Gunn PA-C [address] [place] [address] Assigned PCP 03/08/21 05/07/22 Sukumar Villarreal MD [address] [place] [address] Assigned Musculoskeletal Provider 11/14/21 12/18/21 Burton Duncan MD [address] [place] [address] Assigned Musculoskeletal Provider 12/19/21 07/21/23 Pat Cole APRN CNP [address] [place] [address] Nurse Practitioner 01/19/22 Yohana Estes PA-C 290 [place] [address] Assigned PCP 05/08/22 06/22/23 Letha Manzanares MD [address] [place] [address] Ophthalmology 03/25/23 02/15/24 Corby Centeno MD [address] [place] [address] 909375 Dermatology 03/29/23 Cynthia Dubon MD [address] [place] [address] 125195 Cardiovascular Disease 04/19/23 Letha Manzanares MD Assigned Surgical Provider 04/23/23 11/19/23 Wilma Saba MD [address] [place] [address] 630424 Assigned OBGYN Provider 04/09/23 Jeannette Jean Baptiste NP [address] [place] [address] 188235 Assigned PCP 06/23/23 Cynthia Dubon MD [address] [place] [address] 723955 Assigned Heart and Vascular Provider 07/01/23 Corby Centeno MD 9 [place] [address] Assigned Surgical Provider 11/20/23 documented as of this encounter
--- OUTSIDE RECORDS SUMMARY | 2024-03-30 16:10 | XMS_ITS | Encounter Summary ---
Author Organization [place] Address [address] [place] [address] Care Team Providers Care Technical Project Lead Name Role Phone ZohaibyanelisShirlene MD Unavailable [phone] [facility] Primary Care Provider Heidi Gunn PA-C Unavailable [phone] Burton Duncan MD Unavailable [phone] Pat Cole APRN HOOP ROLLS OPERATOR Unavailable [phone] Yohana Estes-C Unavailable [phone] Letha Manzanares MD Unavailable Unavailable Corby Centeno MD Unavailable [phone] Cynthia Dubon MD Unavailable [phone] Letha Manzanares MD Unavailable Unavailable Wilma Saba MD Unavailable [phone] Jeannette Jean Baptiste NP Unavailable [phone] Cynthia Dubon MD Unavailable [phone] System, Provider Not In Primary Care Provider Un available Corby Centeno MD Unavailable [phone] Reason for Visit * Reason Onset Date Comments Referral 01/12/2022 Encounter Details Date Type Department Care Team (Late st Contact Info) Description 01/12/2022 Telephone M [address] [place] [address] MabelLisa medinaKATHLEEN HOOP ROLLS OPERATOR [address] [place] [address] Referral Social History Tobacco Use [...] PM CDT 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 Alida Grimm Regional Director Of Admissions [facility] [place] * Telephone Encounter - Luz Damon RN - 01/18/2022 3:03 PM CDT Please assist in scheduling a new patient appointment with Pat Cole CNP at the [facility]. LASHONDA Hanson, RN Engineering Mathematician [facility] [place] * Telephone Encounter - Danielle Gil - 01/12/2022 3:[address] [facility] Call Center Phone Message May a detailed message be left on voicemail: yes Reason for Call: Pt was previously seen by Lisa Monroe in [place] in May of 2020. She is now being referred back to the pain clinic. Since she is new Pt and they are not accepting New Pt's in [place], Pt is wondering if we can make an exception and see her in [place] by Lisa. Thanks. documented in this encounter Plan of Treatment Not on file documented as of this encounter Visit Diagnoses Not on filedocumented in this encounter Additional Health Concerns Assessment Noted Time PHQ-9 Depression Total Score: 5 05/06/20 21 7:33 AM ELEMENTARY CLASSROOM TEACHER documented as of this encounter Care Teams Technical Project Lead Relationship Specialty Start Date End Date Clinic - [facility] [address] [place] [address] PCP - General Clinic 10/03/22 07/14/23 System, Provider Not In PCP - General Clinic 07/15/23 Shirlene Amos MD [address] [facility] [place] [address] Dermatology 12/29/15 Heidi Gunn, PA-C [address] [place] [address] Assigned PCP 03/08/21 05/07/22 Burton Duncan MD 4000 [place] [address] Assigned Musculoskeletal Provider 12/19/21 07/21/23 Pat Cole APRN HOOP ROLLS OPERATOR [address] [place] [address] Nurse Practitioner 01/19/22 Yohana Estes PA-C 290 [place] [address] Assigned PCP 05/08/22 06/22/23 Letha Manzanares MD [address] [place] [address] MD Anthony 03/25/23 02/15/24 Corby Centeno MD [address] [place] [address] 160665 MD Dermatology 03/29/23 Cynthia Dubon MD [address] [place] [address] 024535 Cardiovascular Disease 04/19/23 Letha Manzanares MD Assigned Surgical Provider 04/23/23 11/19/23 Wilma Saba MD [address] [place] [address] 543904 Assigned OBGYN Provider 04/09/23 Jeannette Jean Baptiste NP [address] [place] [address] 289665 Assigned PCP 06/23/23 Cynthia Dubon MD [address] [place] [address] 689765 Assigned Heart and Vascular Provider 07/01/23 Corby Centeno MD [address] [place] [address] 200945 Assigned Surgical Provider 11/20/23 documented as of this encounter
--- OUTSIDE RECORDS SUMMARY | 2024-03-30 16:10 | XMS_ITS | Encounter Summary ---
Author Organization [place] Address [address] [facility] [place] [address] Care Team Providers Care Board Hammer Operator Name Role Phone BetteShirlene MD Unavailable [phone] Manju Crooks FIBROUS WALLBOARD INSPECTOR CNM Unavailable [facility] Primary Care Provider Zaira Queen APRN CASINO CAGE MANAGER Unavailable Franklyn Chadwick DPM Unavailable +[phone] Eva Echols DO Unavailable [phone] Heidi Gunn PA-C Unavailable [phone] Sukumar Villarreal MD Unavailable [phone] Burton Duncan MD Unavailable [phone] Pat Cole APRN CASINO CAGE MANAGER Unavailable [phone] Yohana Estes-C Unavailable [phone] Letha Manzanares MD Unavailable Unavailable Corby Centeno MD Unavailable [phone] Cynthia Dubon MD Unavailable [phone] Letha Manzanares MD Unavailable Unavailable Wilma Saba MD Unavailable [phone] Jeannette Jean Baptiste NP Unavailable [phone] Cynthia Dubon MD Unavailable [phone] System, Provider Not In Primary Care Provider Un available Corby Centeno MD Unavailable [phone] Encounter Details Date Type Department Care Team (Late st Contact Info) Description 11/05/2020 [facility] [place] [address] [place] [address] 4th [place] [address] Adrianne Richards MD [address] [place] [address] 741 [place] [address] Social History Tobacco Use Types [...] PM CDT 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 [address] Dermatology 12/29/15 Manju Crooks, FIBROUS WALLBOARD INSPECTOR CNM Assigned OBGYN Provider 03/21/20 09/19/21 Zaira Queen, FIBROUS WALLBOARD INSPECTOR CASINO CAGE MANAGER [address] [place] [address] Assigned PCP 05/04/20 03/07/21 Franklyn Chadwick DPM [address] [facility] [place] [address] Assigned Musculoskeletal Provider 05/18/20 11/13/21 [place] [address] [place] [address] Assigned Gastroenterology Provider 11/23/20 12/20/20 Heidi Gunn PAGuillermoC [address] [place] [address] Assigned PCP 03/08/21 05/07/22 Sukumar Villarreal MD 6[address] [place] [address] Assigned Musculoskeletal Provider 11/14/21 12/18/21 Burton Duncan MD [address] [place] [address] Assigned Musculoskeletal Provider 12/19/21 07/21/23 Pat Cole APRN CNP [address] [place] [address] Nurse Practitioner 01/19/22 Yohana Estes PA-C [address] [place] [address] Assigned PCP 05/08/22 06/22/23 Letha Manzanares MD [address] [place] [address] [facility] 03/25/23 02/15/24 Corby Centeno MD [address] [place] [address] Dermatology 03/29/23 Cynthia Dubon MD [address] [place] [address] 123395 Cardiovascular Disease 04/19/23 Letha Manzanares MD Assigned Surgical Provider 04/23/23 11/19/23 Wilma Saba MD [address] [facility] 300 [place], [place] 302564 Assigned OBGYN Provider 04/09/23 Jeannette Jean Baptiste, ANGEL [address] [place] [address] 481045 Assigned PCP 06/23/23 Cynthia Dubon MD [address] [place] [address] 841635 Assigned Heart and Vascular Provider 07/01/23 Corby Centeno MD 9 [place] [address] Assigned Surgical Provider 11/20/23 documented as of this encounter
--- OUTSIDE RECORDS SUMMARY | 2024-03-30 16:10 | XMS_ITS | Encounter Summary ---
Author Organization [place] Address [address] [facility] [place] [address] Care Team Providers Care Pattern Drum Maker Name Role Phone Shirlene Amos MD Unavailable [phone] [facility] Primary Care Provider Burton Duncan MD Unavailable [phone] Pat Cole APRN WATER TREATMENT PLANT REPAIRER Unavailable [phone] Yohana Estes PA-C Unavailable [phone] Letha Manzanares MD Unavailable Unavailable Corby Centeno MD Unavailable [phone] Cynthia Dubon MD Unavailable [phone] Letha Manzanares MD Unavailable Unavailable Wilma Saba MD Unavailable [phone] Jeannette Jean Baptiste NP Unavailable [phone] Cynthia Dubon MD Unavailable [phone] System, Provider Not In Primary Care Provider Un available Corby Centeno MD Unavailable [phone] Encounter Details Date Type Department Care Team (Late st Contact Info) Description 12/14/2022 [facility] Medical Advice [facility] [address] [place] [address] [address] [place] [phone] Kristi Stone Social History Tobacco Use Types Packs/Day Years Used Date Smoking Tobacco: Every Day Cigarettes 0.5 10 Smokeless Tobacco: Never Alcohol Use Standard Drinks/Week Comments Yes 0 (1 standard drink = 0.6 oz pur e alcohol) rare PHQ-2 Answer Date Recorded PHQ-2 Score 0 10/18/2022 Comments No Sex and Gender Information Value Date Recorded Sex Assigned at Female 09/29/2020 3:49 PM CDT 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 Gender Identity Female 09/29/2020 3:49 PM CDT Sexual Orientation Straight 09/29/2020 3: 49 PM CDT documented as of this encounter Plan of Treatment Not on file documented as of this encounter Visit Diagnoses Not on filedocumented in this encounter Additional Health Concerns Assessment Noted Time PHQ-9 Depression Total Score: 1 10/19/19 23 2:57 PM CDT documented as of this encounter Care Teams Pattern Drum Maker Relationship Specialty Start Date End Date Clinic - [facility] [address] [place] [address] PCP - General Clinic 10/03/22 07/14/23 System, Provider Not In PCP - General Clinic 07/15/23 Shirlene Amos MD [address] [facility] [place] [address] Dermatology 12/29/15 Burton Duncan MD 4000 [place] [address] Assigned Musculoskeletal Provider 12/19/21 07/21/23 Pat Cole APRN WATER TREATMENT PLANT REPAIRER 909 [place] [address] Nurse Practitioner 01/19/22 Yohana Estes PA-C 290 [place] [address] Assigned PCP 05/08/22 06/22/23 Letha Manzanares MD [address] [place] [address] MD Anthony 03/25/23 02/15/24 Corby Centeno MD [address] [place] [address] MD Dermatology 03/29/23 Cynthia Dubon MD [address] [place] [address] 233155 Cardiovascular Disease 04/19/23 Letha Manzanares MD Assigned Surgical Provider 04/23/23 11/19/23 Wilma Saab MD [address] 956494 Assigned OBGYN Provider 04/09/23 Jeannette Jean Baptiste NP [address] 928735 Assigned PCP 06/23/23 Cynthia Dubon MD [address] [place] [address] 373225 Assigned Heart and Vascular Provider 07/01/23 Corby Centeno MD [address] [place] [address] 236875 Assigned Surgical Provider 11/20/23 documented as of this encounter
--- OUTSIDE RECORDS SUMMARY | 2024-03-30 16:10 | XMS_ITS | Encounter Summary ---
Author Organization [place] Address [address] [place] [address] Care Team Providers Care Business Loan Processor Name Role Phone BetteShirlene MD Unavailable [phone] [facility] [place] Primary Care Provider Burton Duncan MD Unavailable [phone] Pat Cole APRN SPECIALTY DEVELOPMENT CONSULTANT Unavailable [phone] Yohana Estes PA-C Unavailable Letha Manzanares MD Unavailable Unavailable Corby Centeno MD Unavailable [phone] Cynthia Dubon MD Unavailable [phone] Letha Manzanares MD Unavailable Unavailable Wilma Saba MD Unavailable [phone] Jeannette Jean Baptiste NP Unavailable [phone] Cynthia Dubon MD Unavailable [phone] System, Provider Not In Primary Care Provider Un available Corby Centeno MD Unavailable +[phone] Reason for Visit * Reason Onset Date Comments Appointment 03/01/2023 Encounter Details Date Type Department Care Team (Late st Contact Info) Description 03/01/2023 Telephone [facility] [address] [place] [address] Ewelina Alexandra MD [address] [place] [address] [phone] Appointment Social History Tobacco Use Types Packs/Day [...] PM CDT 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 Pleaseadvise. [facility] can be reached at [phone], ok to leave detailed information on voicemail. * Telephone Encounter - Luz Montgomery - 03/04/2023 8:12 AM CDT Central scheduling is unable to determine which spots are available to use for this visit, a searchof all clinics was preformed both in person and virtual, please assist [facility] in getting appt moved toa sooner at Dr Vizcarra's request. Please call [facility] at [phone]. My apologies and thank youfor your help [...] Katty Melissa - 03/01/2023 2:50 PM CDT [facility] Call Center Phone Message May a detailed message be left on voicemail: yes Reason for Call: Other: Pt being referred for Thyroid nodule, no appt available in 4 weeks, please call [facility] at [place] [facility] at [phone] documented in this encounter Plan of Treatment Not on file documented as of this encounter Visit Diagnoses Not on filedocumented in this encounter Additional Health Concerns Assessment Noted Time PHQ-9 Depression Total Score: 2 02/23/20 10:16 AM CDT documented as of this encounter Care Teams Business Loan Processor Relationship Specialty Start Date End Date Clinic - [facility] [id number] [place] [address] PCP - General Clinic 10/03/22 07/14/23 System, Provider Not In PCP - General Clinic 07/15/23 Shirlene Amos MD [address] [facility] [place] [address] Dermatology 12/29/15 Burton Duncan MD [address] [place], [place] 617301 Assigned Musculoskeletal Provider 12/19/21 07/21/23 Pat Cole APRN SPECIALTY DEVELOPMENT CONSULTANT [address] [place] [address] Nurse Practitioner 01/19/22 Yohana Estes PA-C 290 [place], [place] 503070 Assigned PCP 05/08/22 06/22/23 Letha Manzanares MD 290 [place] [address] Ophthalmology 03/25/23 02/15/24 Corby Centeno MD [address] [place] [address] MD Dermatology 03/29/23 Cynthia Dubon MD [address] [place] [address] Cardiovascular Disease 04/19/23 Letha Manzanares MD Assigned Surgical Provider 04/23/23 11/19/23 Wilma Saba MD [address] 358804 Assigned OBGYN Provider 04/09/23 Jeannette Jean Baptiste NP [address] [place] [address] 316145 Assigned PCP 06/23/23 Cynthia Dubon MD [address] [place] [address] [phone] Assigned Heart and Vascular Provider 07/01/23 Corby Centeno MD [address] [place] [address] 959825 Assigned Surgical Provider 11/20/23 documented as of this encounter
--- OUTSIDE RECORDS SUMMARY | 2024-03-30 16:11 | XMS_ITS | Encounter Summary ---
Author Organization [place] Address [address] [facility] [place] [address] Care Team Providers Care Biodiesel Engine Specialist Name Role Phone Olga Sandoval MD Primary Care Provider [phone] Shirlene Amos MD Unavailable [phone] Pat Mayorga PA-C Unavailable [phone] Pat Maoyrga PA-C Unavailable [phone] [facility] Primary Care Provider Heidi Gunn-C Primary Care Provider + [phone] Heidi Gunn PA-C Unavailable [phone] Manju Crooks APRN CNM Unavailable [facility] Primary Care Provider Zaira Queen APRN CONSTRUCTION JOB TITLES Unavailable Franklyn Chadwick DPM Unavailable [phone] Eva Echols DO Unavailable [phone] Heidi Gunn Edis STARKEYC Unavailable [phone] Sukumar Villarreal MD Unavailable [phone] Burton Duncan MD Unavailable [phone] Pat Cole APRN CONSTRUCTION JOB TITLES Unavailable [phone] Yohana EstesC Unavailable [phone] Letha Manzanares MD Unavailable Unavailable Corby Centeno MD Unavailable [phone] Cynthia Dubon MD Unavailable [phone] Letha Manzanares MD Unavailable Unavailable Wilma Saba MD Unavailable [phone] Jeannette Jean Baptiste NP Unavailable [phone] Cynthia Dubon MD Unavailable [phone] System, Provider Not In Primary Care Provider Un available Corby Centeno MD Unavailable [phone] Reason for Visit * Reason Onset Date Comments Patient Request for Note/Letter 07/06/2018 Encounter Details Date Type Department Care Team (Late st Contact Info) Description 07/06/[address] [place] [address] [place] [address] [place] [address] [address] Patient Request for Note/Letter Social [...] PM CDT 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 Please fax this to [phone] attyessy junior. Please call pt with any questions. thanks R SHOVEL OPERATOR documented in this encounter Plan of Treatment Not on file documented as of this encounter Visit Diagnoses Not on filedocumented in this encounter Additional Health Concerns Assessment Noted Time PHQ-9 Depression Total Score: 4 04/13/20 16 7:37 AM POWER SHOVEL OPERATOR documented as of this encounter Care Teams Biodiesel Engine Specialist Relationship Specialty Start Date End Date Olga Sandoval MD [address] [place] [address] PCP - General Family Practice 06/26/14 06/14/19 Pat Mayorga PA-C [address] [place] [address] PCP - Assigned PCP 07/02/18 08/01/18 [facility] [address] [place] [address] PCP - General 06/15/19 06/19/19 Heidi Gunn PA-C [address] [place] [address] PCP - General Physician Cotton Bag Sewer - Medical 06/20/19 04/29/20 Clinic - [facility] [address] [place] [address] PCP - General Clinic 10/03/22 07/14/23 System, Provider Not In PCP - General Clinic 07/15/23 Shirlene Amos MD [address] [facility] [address] Dermatology 12/29/15 Pat Mayorga PA-C [address] [facility] [place] [address] Assigned PCP 07/02/18 06/23/19 Heidi Gunn PA-C [address] [place] [address] Assigned PCP 06/24/19 05/03/20 Manju Crooks APRN CNM Assigned OBGYN Provider 03/21/20 09/19/21 Zaira Queen APRN CONSTRUCTION JOB TITLES [address] [place] [address] Assigned PCP 05/04/20 03/07/21 Franklyn Chadwick DPM [address] [facility] [place] [address] Assigned Musculoskeletal Provider 05/18/20 11/13/21 [place] [address] [place] [address] Assigned Gastroenterology Provider 11/23/20 12/20/20 Heidi Gunn PA-C [address] [place] [address] Assigned PCP 03/08/21 05/07/22 Sukumar Villarreal MD [address] [place] [address] Assigned Musculoskeletal Provider 11/14/21 12/18/21 Burton Duncan MD [address] [place] [address] [id number] Assigned Musculoskeletal Provider 12/19/21 07/21/23 Pat Cole APRN CONSTRUCTION JOB TITLES [address] [place] [address] [id number] Nurse Practitioner 01/19/22 Yohana Estes PA-C [address] [place], [place] 0[address] Assigned PCP 05/08/22 06/22/23 Letha Manzanares MD [address] [place] [address] Ophthalmology 03/25/23 02/15/24 Corby Centeno MD [address] [place] [address] 323335 Dermatology 03/29/23 Cynthia Dubon MD [address] [place] [address] [id number] Cardiovascular Disease 04/19/23 Letha Manzanares MD Assigned Surgical Provider 04/23/23 11/19/23 Wilma Saba MD [address] [place] [address] Assigned OBGYN Provider 04/09/23 Jeannette Jean Baptiste NP [address] [address] Assigned PCP 06/23/23 Cynthia Dubon MD [address] [place] [address] [phone] Assigned Heart and Vascular Provider 07/01/23 Corby Centeno MD [address] [place] [address] [id number] Assigned Surgical Provider 11/20/23 documented as of this encounter
== END 2024-03-30 17:12 | disposition home or self-care (01) ==
PROVIDERS: Emergency Provider Student in an Organized Health Care Education/Training Program; PCP Family Medicine
DX: R51.9 Headache, unspecified (principal)
CPT/HCPCS: 36415; 80048; 80306; 81001; 81025; 83735; 84443; 84484; 85025; 87086; 93005; 96374; 96375; 99283; 99284; A9270; J1200; J1885; J2765; J7030

== ENCOUNTER 2024-05-03 09:01 | Outpatient (CLI) | payer MEDICAID, SELFPAY ==
--- OUTSIDE RECORDS SUMMARY | 2024-05-03 09:06 | XMS_ITS | Referral Summary ---
Author Organization [facility] Address [address] [place] [address] Care Team Providers Care Gandy Dancer Name Role Phone Unavailable Primary Care Provider Unavailabl e Source Comments Patient records contain information from all sites at [facility]. For routine questions regarding patient records, call [phone] during business hours, M-F 8:00 AM - 5:00 PM Central Time. 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 I have a [facility] place to live 08/24/2023 Comments Unknown Sex and Gender Information Value Date Recorded Sex Assigned at Female 08/24/2023 7:50 PM CDT Legal Sex Female 2:17 PM CHIEF CONSTRUCTION INSPECTOR Gender Identity Female 08/24/2023 7:50 PM CDT Sexual Orientation Straight 08/24/2023 7: 50 PM CDT Last Filed Vital Signs Vital Sign Reading Time Taken Comments Blood Pressure 116/77 06/23/2023 8:33 AM CHIEF CONSTRUCTION INSPECTOR Pulse 76 06/23/2023 8:33 AM CHIEF CONSTRUCTION INSPECTOR Temperature - - Respiratory Rate - - Oxygen Saturation - - Inhaled Oxygen Concentration - - Weight 85.5 kg (188 lb 7.9 oz) 06/23/2023 8:33 A M CHIEF CONSTRUCTION INSPECTOR Height 166.8 cm (5' 5.67) 06/23/2023 8:33 AM CS T Body Mass Index 30.73 06/23/2023 8:33 AM CHIEF CONSTRUCTION INSPECTOR Plan of Treatment Not on file Medical Devices Implanted Type Area Granite Polisher Device Identifier Shelf Expiration Date Model / Serial / Lot Gi Other GI Other Stomach Description:06/23/23. PS (Phe t). Patient could not recall approx. date of implantation. Hardware E.G. Pins/Screws/Graham s Hardware e.g. pins/screws/graham s Right: Ankle Description:06/23/23 PS (Phet ). Patient said these screws were implanted approx. 3 years ago, so approx. 2020. Intrauterine Device Intrauterine Device Uterus Insurance [facility]
--- OUTSIDE RECORDS SUMMARY | 2024-05-03 09:06 | XMS_ITS | Encounter Summary ---
Author Organization [facility] Address [address] [place] [address] Care Team Providers Care Child Care Education Coordinator Name Role Phone Unavailable Primary Care Provider Unavailabl e Reason for Visit * Reason Onset Date Comments Order Request 01/26/2024 Encounter Details Date Type Department Care Team (Latest Contact Info) Description 01/26/2024 Clinical Communication Division of Endocrinology in [place], [place] [address] [place] [phone] Minerva Mast M.D. [address] [place] [phone] Order Request Social History Tobacco Use Types Packs/Day Years Used Date Smoking Tobacco: Former Cigarettes Passive Smoke Exposure: Current Smokeless Tobacco: Never [facility] Utilities Answer Date Recorded In the past 12 months has th e electric, gas, oil, or water [employer] threatened to shut off services in your [...] living situation today? I have a [facility] place to live 08/24/2023 Comments Unknown Sex and Gender Information Value Date Recorded Sex Assigned at Female 08/24/2023 7:50 PM CDT Legal Sex Female 2:17 PM DIE SINKER APPRENTICE Gender Identity Female 08/24/2023 7:50 PM CDT Sexual Orientation Straight 08/24/2023 7: 50 PM CDT documented as of this encounter Plan of Treatment Not on file documented as of this encounter Visit Diagnoses Not on filedocumented in this encounter
--- OUTSIDE RECORDS SUMMARY | 2024-05-03 09:06 | XMS_ITS | Clinical Summary ---
Author Organization [facility] Address [address] [place] [address] Care Team Providers Care Locomotive Mechanic Apprentice Name Role Phone Unavailable Primary Care Provider Unavailabl e Source Comments Patient records contain information from all sites at [facility]. For routine questions regarding patient records, call [phone] during business hours, M-F 8:00 AM - 5:00 PM Central Time. Record requests for emergency care only can be directed to [phone] at any time.[facility] Allergies Active Allergy Reactions Criticality Noted Date Comments [place] Other (see comments) Low 06/13/2023 Cyclobenzaprine Other [...] above Assessment & Plan (06/23/2023 10:10 AM FACT CHECKER): Natalie presents for above, she was 31 [...] months with labs and visit (Pro or ATTENDANT SALES) Social History Tobacco Use Types Packs/Day Years Used Date Smoking Tobacco: Former Cigarettes Passive Smoke Exposure: Current Smokeless Tobacco: Never Tobacco Cessation:Counseling Given: Not Answered [facility] Utilities Answer Date Recorded In the past 12 months has [employer], gas, oil, or water [employer] threatened to shut off services in your [...] your living situation today? I have a [facility] place to live 08/24/2023 Comments Unknown Sex and Gender Information Value Date Recorded Sex Assigned at Female 08/24/2023 7:50 PM CDT Legal Sex Female 2:17 PM FACT CHECKER Gender Identity Female 08/24/2023 7:50 PM CDT Sexual Orientation Straight 08/24/2023 7: 50 PM CDT Last Filed Vital Signs Vital Sign Reading Time Taken Comments Blood Pressure 116/77 06/23/2023 8:33 AM FACT CHECKER Pulse 76 06/23/2023 8:33 AM FACT CHECKER Temperature - - Respiratory Rate - - Oxygen Saturation - - Inhaled Oxygen Concentration - - Weight 85.5 kg (188 lb 7.9 oz) 06/23/2023 8:33 A M FACT CHECKER Height 166.8 cm (5' 5.67) 06/23/2023 8:33 AM CS T Body Mass Index 30.73 06/23/2023 8:33 AM FACT CHECKER Plan of Treatment Health Maintenance Due Date Last Done Comments HIV Screening 1981 Hepatitis C Screening 1981 Mammogram 1981 Hepatitis B Vaccines (1 of 3 - 19+ 3-dose series) 2000 Depression Screening (Annual PHQ-2) 05/30/2023 DTaP,Tdap,and Td Vaccines (3 - Td or Tdap) 10/05/2023 10/04/2013, 06/22/2011 COVID-19 Vaccine ( season) 2024 Influenza Vaccine (#1) 2024 , [...] this topic Medical Devices Implanted Type Area Senior Teradata Developer Device Identifier Shelf Expiration Date Model / Serial / Lot Gi Other GI Other Stomach Description:06/23/23. PS (Phe t). Patient could not recall approx. date of implantation. Hardware E.G. Pins/Screws/Graham s Hardware e.g. pins/screws/graham s Right: Ankle Description:06/23/23 PS (Phet ). Patient said these screws were implanted approx. 3 years ago, so approx. 2020. Intrauterine Device Intrauterine Device Uterus Insurance [facility]
--- OUTSIDE RECORDS SUMMARY | 2024-05-03 09:06 | XMS_ITS | Encounter Summary ---
Author Organization [facility] Address [address] [place] [address] Care Team Providers Care Director Of Recreation Therapy Name Role Phone Unavailable Primary Care Provider Unavailabl e Reason for Referral * Outpatient (Routine) - Authorized Specialty Diagnoses / Procedures Referred By Sasha t Referred To Contact Endocrinology Diagnoses Hyperthyroidism Minerva Mast M.D. [address] [place] [phone] Phone: tel: fax: [facility] Referral ID Status Reason Start Date Expiration Date V isits Requested Visits Authorized [id number] Authorized 02/01/2024 08/02/2025 1 1 Scheduling Instructions Can be seen by Dr. Mast or ANNY Encounter Details Date Type Department Care Team (Latest Contact Info) Description 02/01/2024 Clinical Communication Division of Endocrinology in [place], [place] [address] [place] [phone] Minerva Mast M.D. [address] [place] [phone] Social History Tobacco Use Types Packs/Day Years Used Date Smoking Tobacco: Former Cigarettes Passive Smoke Exposure: Current Smokeless Tobacco: Never [facility] Utilities Answer Date Recorded In the [...] your living situation today? I have a [facility] place to live 08/24/2023 Comments Unknown Sex and Gender Information Value Date Recorded Sex Assigned at Female 08/24/2023 7:50 PM CDT Legal Sex Female 2:17 PM SENIOR IT RECRUITER Gender Identity Female 08/24/2023 7:50 PM CDT [...]
--- OUTSIDE RECORDS SUMMARY | 2024-05-03 09:06 | XMS_ITS | Encounter Summary ---
Author Organization [facility] Address [address] [place] [address] Care Team Providers Care Blacksmith Supervisor Name Role Phone Unavailable Primary Care Provider Unavailabl e Reason for Visit * Reason Comments Med Refill Encounter Details Date Type Department Care Team ([facility] st Contact Info) Description 01/23/2024 Refill Division of Endocrinology in [place], [place] [address] [place] [phone] Minerva Mast M.D. [address] [place] [phone] Med Refill Social History Tobacco Use Types Packs/Day Years Used Date Smoking Tobacco: Former Cigarettes Passive Smoke Exposure: Current Smokeless Tobacco: Never [facility] Utilities Answer Date Recorded In the [...] your living situation today? I have a [facility] place to live 08/24/2023 Comments Unknown Sex and Gender Information Value Date Recorded Sex Assigned at Female 08/24/2023 7:50 PM CDT Legal Sex Female 2:17 PM MEAT TEAM MEMBER Gender Identity Female 08/24/2023 7:50 PM CDT Sexual Orientation Straight 08/24/2023 7: 50 PM CDT documented as of this encounter Plan of Treatment Not on file documented as of this encounter Visit Diagnoses Diagnosis Hyperthyroidism documented in this encounter
--- OUTSIDE RECORDS SUMMARY | 2024-05-03 09:06 | XMS_ITS ---
Author Organization [facility] Address [address] [place] [address] Care Team Providers Care Drop Board Worker Name Role Phone Unavailable Unavailable Unavailable Surgery Details Not on file Complications Check Surgery Details section. Procedure Estimated Blood Loss Check Surgery Details section. Procedure Findings Check Surgery Details section. Procedure Specimens Taken Check Surgery Details section.
--- OUTSIDE RECORDS SUMMARY | 2024-05-03 09:06 | XMS_ITS | Clinical Summary ---
Author Organization [place] Address [address] [facility] [place] [address] Care Team Providers Care Sweet Goods Machine Operator Name Role Phone Shirlene Amos MD Unavailable Pat Cole APRN WATCH REPAIR TECHNICIAN Unavailable [phone] Corby Centeno MD Unavailable [phone] Cynthia Dubon MD Unavailable [phone] Wilma Saba MD Unavailable [phone] Jeannette Jean Baptiste NP Unavailable [phone] Cynthia Dubon MD Unavailable [phone] System, Provider Not In Primary Care Provider Un available Corby Centeno MD Unavailable [phone] Allergies Active Allergy Reactions Criticality Noted Date [...] skin Medications polyethylene glycol (MIRALAX) 17 GM/Dose powderIndicatio ns:Chronic constipation Take 17 g (1 capful) by mouth 2 times daily 850 g 4 10/01/19 21 Active gabapentin (NEURONTIN) 300 MG capsuleIndicati ons:Neuropathic pain Start 300 mg at bedtime x 2 days, then increase to 300 mg BID x 3 days, then 300 mg TID x 3 days. 90 capsule 1 09/24/19 23 Active Additional Information Patient taking differently: 300 mg 3 TIMES DAILY, ., Reported on 05/13/2023 albuterol (PROAIR HFA/PROVENTIL HFA/VENTOLIN HFA) 108 (90 Base) MCG/ACT inhalerIndicati ons:Mild intermittent asthma with exacerbation Inhale 2 puffs into the lungs every 4 hours as needed for shortness of breath or wheezing 18 g 10/19/19 23 Active EPINEPHrine (ANY BX GENERIC EQUIV) 0.3 MG/0.3ML injection 2-packIndicatio ns:Allergy to mold,Anaphylact ic reaction to bee sting, accidental or unintentional, sequela Inject 0.3 mLs (0.3 mg) into the muscle once as needed for anaphylaxis 2 each 10/19/19 23 Active hydrocortisone (CORTAID) 1 % external ointmentIndicat ions:Skin lesion Apply sparingly to affected area three times daily for 14 days. 30 g 02/23/20 23 Active Heating Pads (HEATING PAD MOIST/DRY) PADSIndications :Costochondriti s 1 Pad 2 times daily as needed (rib pain after coughing) 1 box 1 each 1 02/23/20 23 Active Additional Information Patient not taking.Reported on [...] 50 mg by mouth At Bedtime Active fluticasone-bryon meterol (ADVAIR) 100-50 MCG/ACT inhalerIndicati ons:Moderate persistent asthma, unspecified whether complicated Inhale 1 puff into the lungs every 12 hours 60 each 3 03/23/20 Active hydrochlorothia zide (HYDRODIURIL) 12.5 MG tabletIndicatio ns:Fluid retention in legs Take 1 tablet (12.5 mg) by mouth daily 30 tablet 1 03/23/20 Active vitamin D3 (CHOLECALCIFERO L) 50 mcg (2000 units) tablet 03/18/20 Active atomoxetine (STRATTERA) 40 MG capsule 03/29/20 Active Multiple Vitamin (TAB-A-NIKKI) TABS 03/18/20 Active prazosin (MINIPRESS) 1 MG capsule 02/19/20 23 Active SENEXON-S 8.6-50 MG tablet 03/21/20 Active omeprazole (PRILOSEC) [address] capsuleIndicati ons:Heartburn Take 1 capsule (40 mg) by mouth daily Take 30-60 minutes before a meal. 30 capsule 1 04/07/20 23 Active amoxicillin (AMOXIL) 500 MG capsuleIndicati ons:Acute serous otitis media of left ear, recurrence not specified Take 1 capsule (500 mg) by mouth 3 times daily 30 capsule 04/07/20 23 Active Additional Information Patient not taking.Reported on 06/20/2023 topiramate (TOPAMAX) 25 MG tablet TAKE ONE TABLET (25 MG) BY MOUTH DAILY. 06/08/19 Active propranolol (INDERAL) 20 MG tablet TAKE ONE TABLET (20 MG) BY MOUTH TWICE A DAY. 06/08/19 24 Active acetaminophen (TYLENOL) 500 MG tabletIndicatio ns:Encounter for IUD insertion Take 1-2 tablets (500-1,000 mg) by mouth every 6 hours as needed for mild pain 07/15/19 Active ibuprofen (ADVIL/MOTRIN) 800 MG tabletIndicatio ns:Encounter for IUD insertion Take 1 tablet (800 mg) by mouth every 8 hours as needed for moderate pain 07/15/19 24 Active methimazole (TAPAZOLE) 5 MG tablet Take 15 mg by mouth daily Active budesonide-form oterol (SYMBICORT) 160-4.5 MCG/ACT InhalerIndicati ons:Mild intermittent asthma with acute exacerbation,No n-seasonal allergic rhinitis due to pollen,Angioede ma, subsequent encounter,Nut allergy,Atopy Inhale 2 puffs into the lungs 2 times daily 10.2 g 3 10/18/19 24 Active emollient (VANICREAM) external creamIndication s:Atopy Apply topically daily 453 g 3 10/18/19 24 Active levocetirizine (GNP ALLERGY RELIEF 24 HR) 5 MG tabletIndicatio ns:Mild intermittent asthma with acute exacerbation,No n-seasonal allergic rhinitis due to pollen,Angioede ma, subsequent encounter,Nut allergy,Atopy Take 1 tablet (5 mg) by mouth every morning. 30 tablet 5 04/10/20 24 Active levocetirizine (XYZAL) 5 MG tabletIndicatio ns:Mild intermittent asthma with acute exacerbation,No n-seasonal allergic rhinitis due to pollen,[place] ma, subsequent encounter,Nut allergy,Atopy Take 1 tablet (5 mg) by mouth every morning 30 tablet 2 10/18/19 24 024 Discontinued Active Problems Problem Noted Date Diagnosed Date Pain in joint, ankle and foot, right 10/21/2022 Neuropathic pain 10/21/2022 Closed displaced fracture of medial malleolus of right tibia, initial encounter 10/22/2021 Overview (10/22/2021): Added automatically from request for surgery [id number] Back muscle spasm 04/28/2018 Assessment & Plan (04/28/2018 9:48 AM DRAW BENCH OPERATOR): Acute muscle spasm likely triggered by [...] bef 03/19/21. 03/25/20 Pt sent results via Anybots. 03/26/20 Pt viewed results on Anybots. 03/05/21 Reminder [facility] 04/02/21 Reminder call - lm 05/06/21 Lost [...] Encounters Date Type Department Care Team Description 05/01/2024 Telephone [facility] [address] 3rd Floor,[address] [place] [facility] [address] [place] [address] Education, [facility] Obgyn Nurse 04/06/2024 Refill [facility] [place] [address] [place] [address] Corby Centeno MD Medication Refill ( levocetirizine (GNP ALLERGY RELIEF 24 HR) 5 MG tablet) from Last 3 Months Immunizations Name Administration Dates Next Due [id number] Novel Flu 06/23/2009 Influenza (IIV3) PF 03/11/2014,06/23/2009 [...] you bought just not last and you didn t have money to get more? No [...] PM CDT Legal Sex Female 4:01 AM DRAW BENCH OPERATOR Gender Identity Female 09/29/2020 3:49 PM CDT Sexual Orientation Straight 09/29/2020 3: 49 PM CDT Last Filed Vital Signs Vital Sign Reading Time Taken Comments Blood Pressure 96/61 07/15/2023 9:30 AM DRAW BENCH OPERATOR Pulse 64 07/15/2023 9:30 AM DRAW BENCH OPERATOR Temperature 36.7 C (98 F) 07/15/2023 9:42 AM DRAW BENCH OPERATOR Respiratory Rate 18 07/15/2023 9:42 AM DRAW BENCH OPERATOR Oxygen Saturation 98% 07/15/2023 9:42 AM DRAW BENCH OPERATOR Inhaled Oxygen Concentration - - Weight 88 kg (194 lb 0.1 oz) 07/15/2023 6:41 AM DRAW BENCH OPERATOR Height 166.6 cm (5' 5.59) 07/15/2023 6:41 AM CS T Body Mass Index 31.7 07/15/2023 6:41 AM DRAW BENCH OPERATOR Plan of Treatment Health Maintenance Due [...] 07/02/2015, Additional history exists GLUCOSE 04/19/2026 04/19/2023, 01/2023, 02/22/2023, Additional history exists LIPID 03/01/2028 [...] this topic Medical Devices Implanted Type Area Wood Buffer Device Identifier Shelf Expiration Date Model / Serial / Lot Iud Contraceptive Device Mirena [address]-55 - [id number] Implanted:Qty: 1 on 07/15/2023 by Wilma Saba MD at [facility] Contraceptive Device N/A: Uterus HARI 06/29/2025 [id number] Arthrex Ankle Fracture Management System, 2.6mm Drill Bit, Cannulated Implanted:Qty: 1 on 11/04/2021 by Sukumar Villarreal MD at [facility] Right: Ankle [id number] 2220 3 Arthrex Ankle Fracture Management System, 4mm Cannulated, Short Threaded, 40mm Implanted:Qty: 1 on 11/04/2021 by Sukumar Villarreal MD at [facility] Right: Ankle [id number] 40 2220 3 Arthrex Ankle Fracture Management System, 4mm Cannulated, Short Thread, 50mm Implanted:Qty: 1 on 11/04/2021 by Sukumar Villarreal MD at [facility] Right: Ankle [id number] -50 2220 3 Explanted Type Area Wood Buffer Device Identifier Shelf Expiration Date Model / Serial / Lot Arthrex Ankle Fracture Management System, Guidewire W/ Trocar Tip, Threaded, 0.062 In Explanted:Qty: 2 on 11/04/2021 by Sukumar Villarreal MD at [facility] Right: Ankle [id number] 2220 3 Procedures Procedure Name Priority Date/Time Associated Diagnosis Comments COMPREHENSIVE METABOLIC PANEL STAT 04/19/2023 10:11 PM DRAW BENCH OPERATOR HIV ANTIGEN ANTIBODY COMBO Routine 04/07/2023 9:34 AM DRAW BENCH OPERATOR History of substance abuse (H) HEPATITIS C SCREEN REFLEX TO HCV RNA QUANT AND GENOTYPE Routine 04/07/2023 9:34 AM DRAW BENCH OPERATOR History of substance abuse (H) LIPID [...] (ABNORMAL) Comprehensive metabolic panel (04/19/2023 10:11 PM DRAW BENCH OPERATOR) [facility] Sodium 138 135 - 145 mmol/L 04/19/2023 10:59 PM DRAW BENCH OPERATOR [facility] Comment:Reference intervals for this test were updated on 02/22/2023 to more accurately reflect our healthy population. There may be differences in the flagging of prior results with similar values performed with this method. Interpretation of those prior results can be made in the context of the updated reference intervals. Potassium 4.0 3.4 - 5.3 mmol/L 04/19/2023 10:59 PM DRAW BENCH OPERATOR [facility] Carbon Dioxide (CO2) 28 22 - 29 mmol/L 04/19/2023 10:59 PM DRAW BENCH OPERATOR [facility] Anion Gap 7 7 - 15 mmol/L 04/19/2023 10:59 PM DRAW BENCH OPERATOR [facility] Urea Nitrogen 16.1 6.0 - 20.0 mg/dL 04/19/2023 10:59 PM DRAW BENCH OPERATOR [facility] Creatinine 0.89 0.51 - 0.95 mg/dL 04/19/2023 10:59 PM DRAW BENCH OPERATOR [facility] GFR Estimate 83 >60 mL/min/1. 73m2 04/19/2023 10:59 PM DRAW BENCH OPERATOR [facility] Calcium 9.2 8.6 - 10.0 mg/dL 04/19/2023 10:59 PM DRAW BENCH OPERATOR [facility] Chloride 103 98 - 107 mmol/L 04/19/2023 10:59 PM DRAW BENCH OPERATOR [facility] Glucose 105(H) 70 - 99 mg/dL 04/19/2023 10:59 PM DRAW BENCH OPERATOR [facility] Alkaline Phosphatase 70 40 - 150 U/L 04/19/2023 10:59 PM DRAW BENCH OPERATOR [facility] Comment:Reference intervals for this test were updated on 04/12/2023 to more accurately reflect our healthy population. There may be differences in the flagging of prior results with similar values performed with this method. Interpretation of those prior results can be made in the context of the updated reference intervals. AST 19 0 - 45 U/L 04/19/2023 10:59 PM DRAW BENCH OPERATOR [facility] Comment:Reference intervals for this test were updated on 11/08/2022 to more accurately reflect our healthy population. There may be differences in the flagging of prior results with similar values performed with this method. Interpretation of those prior results can be made in the context of the updated reference intervals. ALT 25 0 - 50 U/L 04/19/2023 10:59 PM DRAW BENCH OPERATOR [facility] Comment:Reference intervals for this test were updated on 11/08/2022 to more accurately reflect our healthy population. There may be differences in the flagging of prior results with similar values performed with this method. Interpretation of those prior results can be made in the context of the updated reference intervals. Protein Total 6.5 6.4 - 8.3 g/dL 04/19/2023 10:59 PM DRAW BENCH OPERATOR [facility] Albumin 3.9 3.5 - 5.2 g/dL 04/19/2023 10:59 PM DRAW BENCH OPERATOR [facility] Bilirubin Total <0.2 <=1.2 mg/dL 04/19/2023 10:59 PM DRAW BENCH OPERATOR [facility] Blood BLOOD SPECIMEN / Unknown Venipuncture / Unknown 04/19/2023 10:11 PM DRAW BENCH OPERATOR 04/19/2023 10:19 PM DRAW BENCH OPERATOR us Aida Teague MD LAB - BLOOD ORDERABLES Final Res ult [facility] [place] [facility] [address] [facility], [address] [place] [address], [facility] [phone] * HIV Antigen Antibody Combo Viola (04/07/2023 9:34 AM DRAW BENCH OPERATOR) Pathologist [facility] HIV Antigen Antibody Combo Nonreactive Nonreactive 04/08/2023 10:32 AM DRAW BENCH OPERATOR [facility] DO Comment:HIV-1 p24 Ag & HIV-1 /HIV-2 Ab Not Detected Blood BLOOD SPECIMEN / Unknown Venipuncture / Unknown 04/07/2023 9:34 AM DRAW BENCH OPERATOR 04/07/2023 9:34 AM DRAW BENCH OPERATOR Jeannette Jean Baptiste INVESTMENT OFFICER LAB - BLOOD ORDERABLES Final Result [facility]ENDO [facility]/Prot/Endo [address] [facility], [address] [phone] * Hepatitis C Screen Reflex to HCV RNA Quant and Genotype (04/07/2023 9:34 AM DRAW BENCH OPERATOR) Hepatitis C Antibody Nonreactive Nonreactive 04/08/2023 9:37 AM DRAW BENCH OPERATOR [facility] DO Blood BLOOD SPECIMEN / Unknown Venipuncture / Unknown 04/07/2023 9:34 AM DRAW BENCH OPERATOR 04/07/2023 9:34 AM DRAW BENCH OPERATOR Narrative [facility] - 04/08/2023 9:37 AM DRAW BENCH OPERATOR Assay performance characteristics have not been established for newborns, infants, and children. Jeannette Jean Baptiste NP LAB - BLOOD ORDERABLES Final Result [facility]ENDO Specialty Core/Prot/Endo [address] [facility], [address] [address], [facility] [phone] * Lipid panel reflex to direct LDL [...] - 03/02/2023 2:22 PM CDT Cholesterol Desirable: <200 mg/dL Triglycerides Normal: Less than 150 mg/dL Borderline High: 150-199 mg/dL High: 200-499 mg/dL Very High: Greater than or equal to 500 mg/dL Direct Measure HDL Female: Greater than or equal to 50 mg/dL Male: Greater than or equal to 40 mg/dL LDL Cholesterol Desirable: <100mg/dL Above Desirable: 100-129 mg/dL Borderline High: 130-159 mg/dL High: 160-189 mg/dL Very High: >= 190 mg/dL Non HDL Cholesterol Desirable: 130 mg/dL Above Desirable: 130-159 mg/dL Borderline High: 160-189 mg/dL High: 190-219 mg/dL Very High: Greater than or equal to 220 mg/dL Eulalia Henrysyedzaki INSTRUCTIONAL SUPPORT SPECIALIST WATCH REPAIR TECHNICIAN LAB - BLOOD ORDER EMMETT Final Result [facility] Core Lab [address] [facility], [address] [place] [phone], [facility] [phone] * Pap screen with HPV - recommended [...] component of this testing was completed at [facility] 02/24/2023 3:01 PM CDT SPECIAL[facility] LAB[facility] Brushing CERVIX UTERI STRUCTURE / Unknown Non-blood Collection / Unknown 02/22/2023 11:20 AM CDT 02/22/2023 11:50 AM CDT Eulalia Henryjosé miguel MCCANNN [facility] Turcios inal Result SPECIALTY LABS Specialty Lab [address] [facility], [address] [place] [address], [facility] [phone] * HPV High Risk Types DNA Cervical (02/22/2023 11:20 AM CDT) Other HR HPV Negative Negative 02/28/2023 12:40 PM CDT [facility] HPV16 DNA Negative Negative 02/28/2023 12:40 PM CDT [facility] HPV18 DNA Negative Negative 02/28/2023 12:40 PM CDT [facility] FINAL DIAGNOSIS This patient's sample is negative for HPV DNA. This test was developed and its performance characteristics determined by the [facility], Molecular Diagnostics Laboratory. It has [...] 10:26 AM CDT Eulalia Luna Юлия MCCANNN WATCH REPAIR TECHNICIAN LAB - BLOOD ORDER EMMETT Final Result [facility]NOST[facility] Molecular Diagnostics [address] [facility], [address] [place] [address], [facility] [phone] from Last 3 Months or Most Recently Relevant to Health Maintenance Insurance [facility] CLAIMS MANAGEMENT Care Teams Sweet Goods Machine Operator Relationship Specialty Start Date End Date System, Provider Not In PCP - General Clinic 07/15/23 Shirlene Amos MD [address] [facility] [place] [address] Dermatology 12/29/15 Pat Cole APRN WATCH REPAIR TECHNICIAN [address] [place] [address] [phone] Nurse Practitioner 01/19/22 Corby Centeno MD [address] [place] [address] [phone] Dermatology 03/29/23 Cynthia Dubon MD [address] [place] [address] [phone] Cardiovascular Disease 04/19/23 Wilma Saba MD [address] [place], [place] [phone] Assigned OBGYN Provider 04/09/23 Jeannette Jean Baptiste NP [address] [phone] Assigned PCP 06/23/23 Cynthia Dubon MD [address] [place] [address] [id number] Assigned Heart and Vascular Provider 07/01/23 Corby Centeno MD [address] [place] [address] [phone] Assigned Surgical Provider 11/20/23
--- OUTSIDE RECORDS SUMMARY | 2024-05-03 09:07 | XMS_ITS | Encounter Summary ---
Author Organization [place] Address [address] [facility] [place] [address] Care Team Providers Care Cellophane Wrapping Examiner Name Role Phone Shirlene Amos MD Unavailable [phone] Pat Cole APRN HEALTH CARE CONSULTANT Unavailable [phone] Corby Centeno MD Unavailable [phone] Cynthia Dubon MD Unavailable [phone] Wilma Saba MD Unavailable [phone] Jeannette Jean Baptiste NP Unavailable [phone] Cynthia Dubon MD Unavailable [phone] System, Provider Not In Primary Care Provider Un available Corby Centeno MD Unavailable [phone] Encounter Details Date Type Department Care Team (Late st Contact Info) Description 05/01/2024 Telephone [facility] [place] [address] [place] [facility] [address] [place] [address] Education, p s Obgyn Nurse Social History Tobacco Use Types Packs/Day Years [...] in an abandoned building, in an overnight longterm, or couch-surfing.) Yes 02/22/2023 Are you worried [...] PM CDT Legal Sex Female 4:01 AM SPEEDER TENDER Gender Identity Female 09/29/2020 3:49 PM CDT Sexual Orientation Straight 09/29/2020 3: 49 PM CDT documented as of this encounter Miscellaneous Notes * Telephone Encounter - Mayda Patricio RN - 05/01/2024 4:43 PM CST Patient called asking if Dr Saba can send her medical records to [facility]. Explained that she needs to request medical records via HIM, and provided phone number. It also appears that [facility] participate in care everywhere, and should be able to access her records through that system. DER TENDER * Telephone Encounter - Miguelina Obrien RN - 05/01/2024 2:40 PM CST Spoke with patient. Patient states she's been spotting x 1 week with an IUD- unable to feel strings. Has vaginal odor. States she had intercourse with boyfriend and odor appeared, wants STI testing. Recommended patient come in for Multiplex swab with STI testing in clinic and lab. Patient wants sent to [facility] in [place]. Also recommended patient have US to check IUD placement and do UPT asa precaution- Recommended after UPT- that patient go to Urgent care since patient does not want to leave [place] and come to clinic. Patient asking if provider will send orders to [facility]- patient insistent on asking provider. Will ask Dr. Saba per patient. DER TENDER documented in this encounter Plan of Treatment Not on file documented as of this encounter Visit Diagnoses Not on filedocumented in this encounter Additional Health Concerns Assessment Noted Time PHQ-9 Depression Total Score: 1 04/07/20 23 7:51 AM SPEEDER TENDER documented as of this encounter Care Teams Cellophane Wrapping Examiner Relationship Specialty Start Date End Date System, Provider Not In PCP - General Clinic 07/15/23 Shirlene Amos MD [address] [place] [address] [place] [address] Dermatology 12/29/15 Pat Cole APRN HEALTH CARE CONSULTANT [address] [place] [address] [phone] Nurse Practitioner 01/19/22 Corby Centeno MD [address] [place] [address] Dermatology 03/29/23 Cynthia Dubon MD [address] [place] [address] [phone] Cardiovascular Disease 04/19/23 Wilma Saba MD [address] [place], [place] [address] Assigned OBGYN Provider 04/09/23 Jeannette Jean Baptiste NP [address] [place] [address] [phone] Assigned PCP 06/23/23 Cynthia Dubon MD [address] [place] [address] [phone] Assigned Heart and Vascular Provider 07/01/23 Corby Centeno MD [address] [place] [address] [phone] Assigned Surgical Provider 11/20/23 documented as of this encounter
--- OUTSIDE RECORDS SUMMARY | 2024-05-03 09:07 | XMS_ITS | Encounter Summary ---
Author Organization [place] Address [address] [facility] [place] [address] Care Team Providers Care Mobile Home Installer Name Role Phone Shirlene Amos MD Unavailable [phone] Pat Cole APRN WEB SERVICES ARCHITECT Unavailable [phone] Letha Manzanares MD Unavailable Unavailable Corby Centeno MD Unavailable [phone] Cynthia Dubon MD Unavailable [phone] Letha Manzanares MD Unavailable Unavailable Wilma Saba MD Unavailable [phone] Jeannette Jean Baptiste NP Unavailable [phone] Cynthia Dubon MD Unavailable [phone] System, Provider Not In Primary Care Provider Un available Corby Centeno MD Unavailable [phone] Encounter Details Date Type Department Care Team (Late st Contact Info) Description 10/14/2023 Lucy Sandy [facility] Dermatologic Surgery Clinic [address] [place] [address] Kristi Stone Social History Tobacco Use Types [...] PM CDT Legal Sex Female 4:01 AM OVERHEAD CLEANER Gender Identity Female 09/29/2020 3:49 PM CDT Sexual Orientation Straight 09/29/2020 3: 49 PM CDT documented as of this encounter Plan of Treatment Not on file documented as of this encounter Visit Diagnoses Not on filedocumented in this encounter Additional Health Concerns Assessment Noted Time PHQ-9 Depression Total Score: 1 04/07/20 23 7:51 AM OVERHEAD CLEANER documented as of this encounter Care Teams Mobile Home Installer Relationship Specialty Start Date End Date System, Provider Not In PCP - General Clinic 07/15/23 [place] [address] [place] [address] [place] [address] Dermatology 12/29/15 Pat Cole APRN CNP [address] [place] [address] [phone] Nurse Practitioner 01/19/22 Letha Manzanares MD [address] [place] [address] Ophthalmology 03/25/23 02/15/24 Corby Centeno MD [address] [place] [address] [phone] Dermatology 03/29/23 Cynthia Dubon MD [address] [place] [address] [phone] Cardiovascular Disease 04/19/23 Letha Manzanares MD Assigned Surgical Provider 04/23/23 11/19/23 Wilma Saba MD [address] [place] [address] Assigned OBGYN Provider 04/09/23 Jeannette Jean Baptiste NP [address] [place] [address] [phone] Assigned PCP 06/23/23 Cynthia Dubon MD [address] [place] [address] Assigned Heart and Vascular Provider 07/01/23 Corby Centeno MD [address] [place] [address] 389305 Assigned Surgical Provider 11/20/23 documented as of this encounter
--- OUTSIDE RECORDS SUMMARY | 2024-05-03 09:07 | XMS_ITS | Encounter Summary ---
Author Organization [place] Address [address] [facility] [place] [address] Care Team Providers Care White Shoe Examiner Name Role Phone BetteShirlene MD Unavailable [phone] [facility] Primary Care Provider Burton Duncan MD Unavailable [phone] Pat Cole APRN PROFESSIONAL ADVISOR Unavailable [phone] Yohana Estes PA-C Unavailable [phone] Letha Manzanares MD Unavailable Unavailable Corby Centeno MD Unavailable [phone] Cynthia Dubon MD Unavailable [phone] Letha Manzanares MD Unavailable Unavailable Wilma Saba MD Unavailable [phone] Jeannette Jean Baptiste NP Unavailable [phone] Cynthia Dubon MD Unavailable [phone] System, Provider Not In Primary Care Provider Un available Corby Centeno MD Unavailable [phone] Reason for Visit * Reason Onset Date Comments Appointment 04/07/2023 IUD under anesth esia Encounter Details Date Type Department Care Team (Late st Contact Info) Description 04/07/2023 Telephone [facility] [place] [address] 3rd Floor,[address] [facility] [address] [place] [address] Wilma Saba MD [address] [place] [address] Appointment (IUD under anesthesia ) [...] PM CDT Legal Sex Female 4:01 AM DIRECTOR OF DATABASE MARKETING Gender Identity Female 09/29/2020 3:49 PM CDT Sexual Orientation Straight 09/29/2020 3: 49 PM CDT documented as of this encounter Miscellaneous Notes * Telephone Encounter - DeonteuzairHannahie - 04/07/2023 12:21 PM CST [facility] Call Center Phone Message May a detailed message be left on voicemail: yes Reason for Call: Appointment Intake Referring Provider Name: Jeannette Jean Baptiste NP Diagnosis and/or Symptoms: IUD placement under anesthesia Please call pt to schedule an IUD placement under anesthesia, thank you! Action Taken: Other: joselyn churner Screening: Not Applicable CTOR OF DATABASE MARKETING documented in this encounter Plan of Treatment Not on file documented as of this encounter Visit Diagnoses Not on filedocumented in this encounter Additional Health Concerns Assessment Noted Time PHQ-9 Depression Total Score: 1 04/07/20 7:51 AM DIRECTOR OF DATABASE MARKETING documented as of this encounter Care Teams White Shoe Examiner Relationship Specialty Start Date End Date Clinic - [facility] [address] [place] [address] PCP - General Clinic 10/03/22 07/14/23 System, Provider Not In PCP - General Clinic 07/15/23 [place] [address] [place] [address] [place] [id number] Dermatology 12/29/15 Burton Duncan MD [address] [place] [address] Assigned Musculoskeletal Provider 12/19/21 07/21/23 Pat Cole APRN CNP [address] [place] [address] Nurse Practitioner 01/19/22 Yohana Estes PA-C [address] [place] [address] Assigned PCP 05/08/22 06/22/23 Letha Manzanares MD [address] [place] [address] MD Anthony 03/25/23 02/15/24 Corby Centeno MD [address] [place] [address] MD Dermatology 03/29/23 Cynthia Dubon MD [address] [place] [address] 458295 Cardiovascular Disease 04/19/23 Letha Manzanares MD Assigned Surgical Provider 04/23/23 11/19/23 Wilma Saba MD [address] 727934 Assigned OBGYN Provider 04/09/23 Jeannette Jean Baptiste NP [address] [place] [address] 00148 Assigned PCP 06/23/23 Cynthia Dubon MD [address] [place] [address] 992025 Assigned Heart and Vascular Provider 07/01/23 Corby Centeno MD [address] [place] [address] 988875 Assigned Surgical Provider 11/20/23 documented as of this encounter
--- OUTSIDE RECORDS SUMMARY | 2024-05-03 09:07 | XMS_ITS | Encounter Summary ---
Author Organization [place] Address [address] [facility] [place] [address] Care Team Providers Care Animal Treatment Investigator Name Role Phone Shirlene Amos MD Unavailable [phone] [facility] Primary Care Provider Burton Duncan MD Unavailable +[phone] Pat Cole APRN DESIGN ENGINEERING TECHNICIAN Unavailable [phone] Yohana Estes PA-C Unavailable [phone] Letha Manzanares MD Unavailable Unavailable Corby Centeno MD Unavailable [phone] Cynthia Dubon MD Unavailable [phone] Letha Manzanares MD Unavailable Unavailable Wilma Saba MD Unavailable [phone] Jeannette Jean Baptiste NP Unavailable [phone] Cynthia Dubon MD Unavailable [phone] System, Provider Not In Primary Care Provider Un available Corby Centeno MD Unavailable [phone] Encounter Details Date Type Department Care Team (Late st Contact Info) Description 05/11/[address] 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 [address] [place] [address] PCP - General Clinic 10/03/22 07/14/23 System, Provider Not In PCP - General Clinic 07/15/23 Shirlene Amos MD [address] [facility] [address] Dermatology 12/29/15 Burton Duncan MD [address] [place] [address] 98[address] Assigned Musculoskeletal Provider 12/19/21 07/21/23 Pat Cole APRN CNP [address] [place] [address] 956965 Nurse Practitioner 01/19/22 Yohana Estes PA-C [address] [place], [place] 454150 Assigned PCP 05/08/22 06/22/23 Letha Manzanares MD [address] [place] [address] 8[address] Ophthalmology 03/25/23 02/15/24 Corby Centeno MD [address] [place] [address] Dermatology 03/29/23 Cynthia Dubon MD [address] [place] [address] 82264 Cardiovascular Disease 04/19/23 Letha Manzanares MD Assigned Surgical Provider 04/23/23 11/19/23 Wilma Saba MD [address] [place], [place] 452154 Assigned OBGYN Provider 04/09/23 Jeannette Jean Baptiste NP [address] 068765 Assigned PCP 06/23/23 Cynthia Dubon MD [address] [place] [address] Assigned Heart and Vascular Provider 07/01/23 Corby Centeno MD [address] [place] [address] 519165 Assigned Surgical Provider 11/20/23 documented as of this encounter
--- OUTSIDE RECORDS SUMMARY | 2024-05-03 09:07 | XMS_ITS | Encounter Summary ---
Author Organization [place] Address [address] [place] [address] Care Team Providers Care Lamination Spinner Name Role Phone Shirlene mAos MD Unavailable [facility] Primary Care Provider Franklyn Chadwick DPM Unavailable [phone] Heidi Gunn PA-C Unavailable Sukumar Villarreal MD Unavailable [phone] Burton Duncan MD Unavailable [phone] Pat Cole APRN LEAD SOFTWARE TEST ENGINEER Unavailable [phone] Yohana Estes PA-C Unavailable [phone] Letha Manzanares MD Unavailable Unavailable Corby Centeno MD Unavailable [phone] Cynthia Dubon MD Unavailable [phone] Letha Manzanares MD Unavailable Unavailable Wilma Saba MD Unavailable [phone] Jeannette Jean Baptiste NP Unavailable [phone] Cynthia Dubon MD Unavailable [phone] System, Provider Not In Primary Care Provider Un available Corby Centeno MD Unavailable [phone] Encounter Details Date Type Department Care Team (Late st Contact Info) Description 11/11/2021 [facility] [address] [place] [phone] Geraldo Lui MA Social History Tobacco Use [...] PM CDT Legal Sex Female 4:01 AM EXECUTIVE CANDIDATE DEVELOPER Gender Identity Female 09/29/2020 3:49 PM [...] Total Score: 5 05/06/20 21 7:33 AM EXECUTIVE CANDIDATE DEVELOPER documented as of this encounter Care Teams Lamination Spinner Relationship Specialty Start Date End Date [facility] [address] [place] [address] PCP - General Clinic 10/03/22 07/14/23 System, Provider Not In PCP - General Clinic 07/15/23 Shirlene Amos MD [address] [facility] [place] [address] Dermatology 12/29/15 Franklyn Chadwick DPM [address] [facility] [place] [address] Assigned Musculoskeletal Provider 05/18/20 11/13/21 Heidi Gunn PA-C [address] [place] [address] Assigned PCP 03/08/21 05/07/22 Sukumar Villarreal MD [address] [place], [place] 312542 Assigned Musculoskeletal Provider 11/14/21 12/18/21 Burton Duncan MD [address] [place] [address] 382761 Assigned Musculoskeletal Provider 12/19/21 07/21/23 Pat Cole APRN LEAD SOFTWARE TEST ENGINEER [address] [place] [address] 136795 Nurse Practitioner 01/19/22 Yohana Estes PA-C [address] [place] [address] Assigned PCP 05/08/22 06/22/23 Letha Manzanares MD [address] [place] [address] MD Anthony 03/25/23 02/15/24 oCrby Centeno MD [address] [place] [address] 273655 Dermatology 03/29/23 Cynthia Dubon MD [address] [place] [address] 793905 Cardiovascular Disease 04/19/23 Letha Manzanares MD Assigned Surgical Provider 04/23/23 11/19/23 Wilma Saba MD [address] [place] [place], [place] [address] 626224 Assigned OBGYN Provider 04/09/23 Jeannette Jean Baptiste NP [address] [place] [address] 220315 Assigned PCP 06/23/23 Cynthia Dubon MD [address] [place] [address] 268875 Assigned Heart and Vascular Provider 07/01/23 Corby Centeno MD [address] [place] [address] 461575 Assigned Surgical Provider 11/20/23 documented as of this encounter
--- OUTSIDE RECORDS SUMMARY | 2024-05-03 09:07 | XMS_ITS | Encounter Summary ---
Author Organization [place] Address [address] [facility] [place] [address] Care Team Providers Care Vp Marketing Name Role Phone Shirlene Amos MD Unavailable [phone] Pat Cole APRN MANAGER RESIDENTIAL Unavailable [phone] Letha Manzanares MD Unavailable Unavailable Corby Centeno MD Unavailable [phone] Cynthia Dubon MD Unavailable [phone] Letha Manzanares MD Unavailable Unavailable Wilma Saba MD Unavailable [phone] Jeannette Jean Baptiste NP Unavailable [phone] Cynthia Dubon MD Unavailable [phone] System, Provider Not In Primary Care Provider Un available Corby Centeno MD Unavailable [phone] Encounter Details Date Type Department Care Team (Late st Contact Info) Description 11/09/2023 [facility] [address] [address] Rosalind Jacobo, RN Social History [...] PM CDT Legal Sex Female 4:01 AM SHEAR OPERATOR Gender Identity Female 09/29/2020 3:49 PM CDT Sexual Orientation Straight 09/29/2020 3: 49 PM CDT documented as of this encounter Plan of Treatment Not on file documented as of this encounter Visit Diagnoses Not on filedocumented in this encounter Additional Health Concerns Assessment Noted Time PHQ-9 Depression Total Score: 1 04/07/20 23 7:51 AM SHEAR OPERATOR documented as of this encounter Care Teams Vp Marketing Relationship Specialty Start Date End Date System, Provider Not In PCP - General Clinic 07/15/23 Shirlene Amos MD [address] [facility] [place] [address] Dermatology 12/29/15 Pat Cole APRN MANAGER RESIDENTIAL [address] [place] [address] Nurse Practitioner 01/19/22 Letha Manzanares MD [address] [place] [address] Ophthalmology 03/25/23 02/15/24 Corby Centeno MD [address] [place] [address] 083215 Dermatology 03/29/23 Cynthia Dubon MD [address] [place] [address] 949265 Cardiovascular Disease 04/19/23 Letha Manzanares MD Assigned Surgical Provider 04/23/23 11/19/23 Wilma Saba MD [address] [address] Assigned OBGYN Provider 04/09/23 Jeannette Jean Baptiste NP [address] [place] [address] 411595 Assigned PCP 06/23/23 Cynthia Dubon MD [address] [place] [address] 325555 Assigned Heart and Vascular Provider 07/01/23 Corby Centeno MD [address] [place] [address] 677685 Assigned Surgical Provider 11/20/23 documented as of this encounter
--- OUTSIDE RECORDS SUMMARY | 2024-05-03 09:07 | XMS_ITS | Encounter Summary ---
Author Organization [place] Address [address] [facility] [place] [address] Care Team Providers Care Underwriting Clerks Supervisor Name Role Phone Shirlene Amos MD Unavailable [phone] [facility] Primary Care Provider Burton Duncan MD Unavailable [phone] Pat Cole APRN AFTER SCHOOL DRIVER Unavailable [phone] Yohana Estes PA-C Unavailable [phone] Letha Manzanares MD Unavailable Unavailable Corby Centeno MD Unavailable [phone] Cynthia Dubon MD Unavailable [phone] Letha Manzanares MD Unavailable Unavailable Wilma Saba MD Unavailable [phone] Jeannette Jean Baptiste NP Unavailable [phone] Cynthia Dubon MD Unavailable [phone] System, Provider Not In Primary Care Provider Un available Corby Centeno MD Unavailable [phone] Encounter Details Date Type Department Care Team (Late st Contact Info) Description 04/29/2023 MyC Medical Advice [facility] [address] 3rd Floor,[address] [place] [facility] [address] [place] [address] Luz Alva CMA Social History [...] PM CDT Legal Sex Female 4:01 AM SENIOR JAVA PROGRAMMER ANALYST Gender Identity Female 09/29/2020 3:49 PM CDT Sexual Orientation Straight 09/29/2020 3: 49 PM CDT documented as of this encounter Plan of Treatment Not on file documented as of this encounter Visit Diagnoses Not on filedocumented in this encounter Additional Health Concerns Assessment Noted Time PHQ-9 Depression Total Score: 1 04/07/20 23 7:51 AM SENIOR JAVA PROGRAMMER ANALYST documented as of this encounter Care Teams Underwriting Clerks Supervisor Relationship Specialty Start Date End Date Clinic - [facility] [address] [place] [address] PCP - General Clinic 10/03/22 07/14/23 System, Provider Not In PCP - General Clinic 07/15/23 Shirlene Amos MD [address] [place] [address] [place] [address] Dermatology 12/29/15 Burton Duncan MD [address] [place] [address] Assigned Musculoskeletal Provider 12/19/21 07/21/23 Pat Cole APRN AFTER SCHOOL DRIVER [address] [place] [address] Nurse Practitioner 01/19/22 Yohana Estes PA-C [address] [place] [address] Assigned PCP 05/08/22 06/22/23 Letha Manzanares MD [address] [place] [address] Ophthalmology 03/25/23 02/15/24 Corby Centeno MD [address] [place] [address] Dermatology 03/29/23 Cynthia Dubon MD [address] [place] [address] Cardiovascular Disease 04/19/23 Letha Manzanares MD Assigned Surgical Provider 04/23/23 11/19/23 Wilma Saba MD [address] [facility] [address] [place], [place] 27[address] Assigned OBGYN Provider 04/09/23 Jeannette Jean Baptiste NP [address] 482285 Assigned PCP 06/23/23 Cynthia Dubon MD [address] [place] [address] Assigned Heart and Vascular Provider 07/01/23 Corby Centeno MD [address] [place] [address] 882025 Assigned Surgical Provider 11/20/23 documented as of this encounter
--- OUTSIDE RECORDS SUMMARY | 2024-05-03 09:07 | XMS_ITS | Encounter Summary ---
Author Organization [place] Address [address] [facility] [place] [address] Care Team Providers Care Ski Topper Name Role Phone Shirlene Amos MD Unavailable [phone] [facility] Primary Care Provider Heidi Gunn PA-C Unavailable [phone] Burton Duncan MD Unavailable [phone] Pat Cole APRN POST SECONDARY PROFESSIONAL Unavailable [phone] Yohana Estes-C Unavailable [phone] Letha Manzanares MD Unavailable Unavailable Corby Centeno MD Unavailable [phone] Cynthia Dubon MD Unavailable [phone] Letha Manzanares MD Unavailable Unavailable Wilma Saba MD Unavailable [phone] Jeannette Jean Baptiste NP Unavailable [phone] Cynthia Dubon MD Unavailable [phone] System, Provider Not In Primary Care Provider Un available Corby Centeno MD Unavailable [phone] Encounter Details Date Type Department Care Team (Late st Contact Info) Description 02/15/2022 [place] [facility] Adv[facility] [address] [place] [phone] [place] Social History Tobacco Use Types [...] PM CDT Legal Sex Female 4:01 AM COMMAND AND CONTROL OFFICER Gender Identity Female 09/29/2020 3:49 PM CDT [...] Total Score: 5 05/06/20 21 7:33 AM COMMAND AND CONTROL OFFICER documented as of this encounter Care Teams Ski Topper Relationship Specialty Start Date End Date Clinic - [facility] [address] [place] [address] PCP - General Clinic 10/03/22 07/14/23 System, Provider Not In PCP - General Clinic 07/15/23 Shirlene Amos MD [address] [facility] [place] [address] Dermatology 12/29/15 Heidi Gunn PAGuillermoC [address] [place] [address] Assigned PCP 03/08/21 05/07/22 Burton Duncan MD [address] [place], [place] [address]E [place], [place] 586891 Assigned Musculoskeletal Provider 12/19/21 07/21/23 Pat Cole APRN POST SECONDARY PROFESSIONAL [address] [place] [address] 553465 Nurse Practitioner 01/19/22 Yohana Estes PA-C [address] [place], [place] 825690 Assigned PCP 05/08/22 06/22/23 Letha Manzanares MD [address] [place] [address] Ophthalmology 03/25/23 02/15/24 Corby Centeno MD [address] [place] [address] 702665 Dermatology 03/29/23 Cynthia Dubon MD [address] [place] [address] 003655 Cardiovascular Disease 04/19/23 Letha Manzanares MD Assigned Surgical Provider 04/23/23 11/19/23 Wilma Saba MD [address] [place] [address] 652004 Assigned OBGYN Provider 04/09/23 Jeannette Jean Baptiste NP [address] [place] [address]874 Assigned PCP 06/23/23 Cynthia Dubon MD [address] [place], [place] 359975 Assigned Heart and Vascular Provider 07/01/23 Corby Centeno MD 909 [place] [address] Assigned Surgical Provider 11/20/23 documented as of this encounter
--- OUTSIDE RECORDS SUMMARY | 2024-05-03 09:07 | XMS_ITS | Encounter Summary ---
Author Organization [place] Address [address] [facility] [place] [address] Care Team Providers Care Cloth Covered Helmet Puller Name Role Phone Shirlene Amos MD Unavailable [phone] [facility] Primary Care Provider Burton Duncan MD Unavailable [phone] Pat Cole APRN SALES ADMINISTRATION MANAGER Unavailable [phone] Yohana Esets PA-C Unavailable [phone] Letha Manzanares MD Unavailable Unavailable Corby Centeno MD Unavailable [phone] Cynthia Dubon MD Unavailable [phone] Letha Manzanares MD Unavailable Unavailable Wilma Saba MD Unavailable [phone] Jeannette Jean Baptiste NP Unavailable [phone] Cynthia Dubon MD Unavailable [phone] System, Provider Not In Primary Care Provider Un available Corby Centeno MD Unavailable [phone] Encounter Details Date Type Department Care Team (Late st Contact Info) Description 12/14/2022 [facility] Medical Advice [facility] [address] [place] [address] [address] [place] [phone] Kristi Stone Social History Tobacco Use Types [...] PM CDT Legal Sex Female 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 Gender Identity Female 09/29/2020 3:49 PM CDT Sexual Orientation Straight 09/29/2020 3: 49 PM CDT documented as of this encounter Plan of Treatment Not on file documented as of this encounter Visit Diagnoses Not on filedocumented in this encounter Additional Health Concerns Assessment Noted Time PHQ-9 Depression Total Score: 1 10/19/19 2:57 PM CDT documented as of this encounter Care Teams Cloth Covered Helmet Puller Relationship Specialty Start Date End Date Clinic - [facility] [address] [place] [address] PCP - General Clinic 10/03/22 07/14/23 System, Provider Not In PCP - General Clinic 07/15/23 Shirlene Amos MD [address] [facility] [address] [address] Dermatology 12/29/15 Burton Duncan MD 4000 [place] [address] Assigned Musculoskeletal Provider 12/19/21 07/21/23 Pat Cole APRN SALES ADMINISTRATION MANAGER 909 [place] [address] Nurse Practitioner 01/19/22 Yohana Estes PA-C 290 [place] [address] Assigned PCP 05/08/22 06/22/23 Letha Manzanares MD 290 [place] [address] MD Anthony 03/25/23 02/15/24 Corby Centeno MD [address] [place] [address] MD Dermatology 03/29/23 Cynthia Dubon MD [address] [place] [address] 959525 Cardiovascular Disease 04/19/23 Letha Manzanares MD Assigned Surgical Provider 04/23/23 11/19/23 Wilma Saba MD [address] [phone] Assigned OBGYN Provider 04/09/23 Jeannette Jean Baptiste NP [address] 758285 Assigned PCP 06/23/23 Cynthia Dubon MD [address] [place] [address] 134875 Assigned Heart and Vascular Provider 07/01/23 Corby Centeno MD [address] [place] [address] 998385 Assigned Surgical Provider 11/20/23 documented as of this encounter
--- OUTSIDE RECORDS SUMMARY | 2024-05-03 09:07 | XMS_ITS | Encounter Summary ---
Author Organization [place] Address [address] [facility] [place] [address] Care Team Providers Care Cargoman Name Role Phone Shirlene Amos MD Unavailable [phone] [facility] Primary Care Provider Heidi Gunn PA-C Unavailable [phone] Burton Duncan MD Unavailable [phone] Pat Cole APRN SENIOR SHAREPOINT DEVELOPER Unavailable [phone] Yohana Estes-C Unavailable [phone] Letha Manzanares MD Unavailable Unavailable Corby Centeno MD Unavailable [phone] Cynthia Dubon MD Unavailable [phone] Letha Manzanares MD Unavailable Unavailable Wilma Saba MD Unavailable [phone] Jeannette Jean Baptiste NP Unavailable [phone] Cynthia Dubon MD Unavailable [phone] System, Provider Not In Primary Care Provider Un available Corby Centeno MD Unavailable [phone] Encounter Details Date Type Department Care Team (Late st Contact Info) Description 01/18/2022 [facility] [address] [place] [phone] [facility] Social History Tobacco Use Types Packs/Day [...] PM CDT Legal Sex Female 4:[address] MAGISTRATE Gender Identity Female 09/29/2020 3:49 PM CDT [...] Total Score: 5 05/06/20 21 7:[address] MAGISTRATE documented as of this encounter Care Teams Cargoman Relationship Specialty Start Date End Date Clinic - [facility] [address] [place] [address] PCP - General Clinic 10/03/22 07/14/23 System, Provider Not In PCP - General Clinic 07/15/23 Shirlene Amos MD [address] [facility] [place] [address] Dermatology 12/29/15 Heidi Gunn PAGuillermoC [address] [place] [address] Assigned PCP 03/08/21 05/07/22 Burton Duncan MD [address] [place] [address] 015161 Assigned Musculoskeletal Provider 12/19/21 07/21/23 Pat Cole APRN SENIOR SHAREPOINT DEVELOPER [address] [place] [address] [id number] Nurse Practitioner 01/19/22 Yohana Estes PA-C [address] [place], [place] 516640 Assigned PCP 05/08/22 06/22/23 Letha Manzanares MD [address] [place] [address] [facility] 03/25/23 02/15/24 Corby Centeno MD [address] [place] [address] 446975 Dermatology 03/29/23 Cynthia Dubon MD [address] [place] [address] 297985 Cardiovascular Disease 04/19/23 Letha Manzanares MD Assigned Surgical Provider 04/23/23 11/19/23 Wilma Saba MD [address] [place] [address] [phone] Assigned OBGYN Provider 04/09/23 Jeannette Jean Baptiste NP [address] [place] [address] Assigned PCP 06/23/23 Cynthia Dubon MD [address] [place], [place] 261615 Assigned Heart and Vascular Provider 07/01/23 Corby Centeno MD [address] [place] [address] Assigned Surgical Provider 11/20/23 documented as of this encounter
--- OUTSIDE RECORDS SUMMARY | 2024-05-03 09:07 | XMS_ITS | Referral Summary ---
Author Organization [place] Address [address] [facility] [place] [address] Care Team Providers Care Shingler Name Role Phone Shirlene Amos MD Unavailable [phone] Pat Cole APRN GRINDING WHEEL DRESSER Unavailable [phone] Corby Centeno MD Unavailable [phone] Cynthia Dubon MD Unavailable [phone] Wilma Saba MD Unavailable [phone] Jeannette Jean Baptiste NP Unavailable [phone] Cynthia Dubon MD Unavailable [phone] System, Provider Not In Primary Care Provider Un available Corby Centeno MD Unavailable [phone] Encounters Date Type Department Care Team Description 05/01/2024 [facility] [address] 3[address] [facility] [address] [place] [phone] Education, [facility] Obgyn Nurse 04/06/2024 Refill [facility] Allergy [address] [address] Corby Centeno MD Medication Refill ( levocetirizine (GNP ALLERGY RELIEF 24 HR) 5 MG tablet) from Last 3 Months Allergies Active Allergy [...] daily for 14 days. 30 g 02/23/20 Active Heating Pads (HEATING PAD MOIST/DRY) PADSIndications :Costochondriti s 1 Pad 2 times daily as needed (rib pain after coughing) 1 box 1 each 1 02/23/20 Active Additional Information Patient not taking.Reported on [...] Active prazosin (MINIPRESS) 1 MG capsule 02/19/20 Active SENEXON-S 8.6-50 MG tablet 03/21/20 Active omeprazole (PRILOSEC) [address] capsuleIndicati ons:Heartburn Take 1 capsule (40 mg) by mouth daily Take 30-60 minutes before a meal. 30 capsule 1 04/07/20 Active amoxicillin (AMOXIL) 500 MG capsuleIndicati ons:Acute serous otitis media of left ear, recurrence not specified Take 1 capsule (500 mg) by mouth 3 times daily 30 capsule 04/07/20 Active Additional Information Patient not taking.Reported on [...] hours as needed for mild pain 07/15/19 24 Active ibuprofen (ADVIL/MOTRIN) 800 MG tabletIndicatio ns:Encounter for IUD insertion Take 1 tablet (800 mg) by mouth every 8 hours as needed for moderate pain 07/15/19 Active methimazole (TAPAZOLE) 5 MG tablet Take [...] (10/22/2021): Added automatically from request for surgery [id number] Back muscle spasm 04/28/2018 Assessment & Plan (04/28/2018 9:48 AM FOUNDRY SUPERINTENDANT): Acute muscle spasm likely triggered by underlying [...] bef 03/19/21. 03/25/20 Pt sent results via [employer]. 03/26/20 Pt viewed results on [employer]. 03/05/21 Reminder [employer] 04/02/21 Reminder call - lm 05/06/21 Lost [...] pain complicating 09/17/2013 07/24/2018 Acute bronchospasm 07/18/2013 IUD check up 06/26/2013 07/16/2013 Dysmenorrhea 10/22/2011 03/30/2023 Symptom associated with female genital organs 10/22/19 12 03/30/2023 Ovarian cyst 04/15/2009 03/30/2023 Immunizations Name Administration Dates Next Due [id number] Novel Flu 06/23/2009 Influenza (IIV3) PF 03/11/2014,06/23/2009 [...] PM CDT Legal Sex Female 4:01 AM FOUNDRY SUPERINTENDANT Gender Identity Female 09/29/2020 3:49 PM CDT Sexual Orientation Straight 09/29/2020 3: 49 PM CDT Last Filed Vital Signs Vital Sign Reading Time Taken Comments Blood Pressure 96/61 07/15/2023 9:30 AM FOUNDRY SUPERINTENDANT Pulse 64 07/15/2023 9:30 AM FOUNDRY SUPERINTENDANT Temperature 36.7 C (98 F) 07/15/2023 9:42 AM FOUNDRY SUPERINTENDANT Respiratory Rate 18 07/15/2023 9:42 AM FOUNDRY SUPERINTENDANT Oxygen Saturation 98% 07/15/2023 9:42 AM FOUNDRY SUPERINTENDANT Inhaled Oxygen Concentration - - Weight 88 kg (194 lb 0.1 oz) 07/15/2023 6:41 AM FOUNDRY SUPERINTENDANT Height 166.6 cm (5' 5.59) 07/15/2023 6:41 AM CS T Body Mass Index 31.7 07/15/2023 6:41 AM FOUNDRY SUPERINTENDANT Plan of Treatment Not on file Medical Devices Implanted Type Area Parole Officer Device Identifier Shelf Expiration Date Model / Serial / Lot Iud Contraceptive Device Mirena [id number] - [id number] Implanted:Qty: 1 on 07/15/2023 by Wilma Saba MD at [facility] Contraceptive Device N/A: Uterus HARI 06/29/2025 [id number] Arthrex Ankle Fracture Management System, 2.6mm Drill Bit, Cannulated Implanted:Qty: 1 on 11/04/2021 by Sukumar Villarreal MD at [facility] Right: Ankle [id number] 2220 3 Arthrex Ankle Fracture Management System, 4mm Cannulated, Short Threaded, 40mm Implanted:Qty: 1 on 11/04/2021 by Sukumar Villarreal MD at [facility] Right: Ankle [id number] 2220 3 Arthrex Ankle Fracture Management System, 4mm Cannulated, Short Thread, 50mm Implanted:Qty: 1 on 11/04/2021 by Sukumar Villarreal MD at [facility] Right: Ankle [id number] -50 2220 3 Explanted Type Area Parole Officer Device Identifier Shelf Expiration Date Model / Serial / Lot Arthrex Ankle Fracture Management System, Guidewire W/ Trocar Tip, Threaded, 0.062 In Explanted:Qty: 2 on 11/04/2021 by Sukumar Villarreal MD at [facility] Right: Ankle [id number] 2220 3 Procedures Procedure Name Priority Date/Time Associated Diagnosis Comments COMPREHENSIVE METABOLIC PANEL STAT 04/19/2023 10:11 PM FOUNDRY SUPERINTENDANT HIV ANTIGEN ANTIBODY COMBO Routine 04/07/2023 9:34 AM FOUNDRY SUPERINTENDANT History of substance abuse (H) HEPATITIS C SCREEN REFLEX TO HCV RNA QUANT AND GENOTYPE Routine 04/07/2023 9:34 AM FOUNDRY SUPERINTENDANT History of substance abuse (H) LIPID REFLEX [...] (ABNORMAL) Comprehensive metabolic panel (04/19/2023 10:11 PM FOUNDRY SUPERINTENDANT) Sodium 138 135 - 145 mmol/L 04/19/2023 10:59 PM FOUNDRY SUPERINTENDANT [facility] Comment:Reference intervals for this test were updated on 02/22/2023 to more accurately reflect our healthy population. There may be differences in the flagging of prior results with similar values performed with this method. Interpretation of those prior results can be made in the context of the updated reference intervals. Potassium 4.0 3.4 - 5.3 mmol/L 04/19/2023 10:59 PM FOUNDRY SUPERINTENDANT [facility] Carbon Dioxide (CO2) 28 22 - 29 mmol/L 04/19/2023 10:59 PM FOUNDRY SUPERINTENDANT [facility] Anion Gap 7 7 - 15 mmol/L 04/19/2023 10:59 PM FOUNDRY SUPERINTENDANT [facility] Urea Nitrogen 16.1 6.0 - 20.0 mg/dL 04/19/2023 10:59 PM FOUNDRY SUPERINTENDANT [facility] Creatinine 0.89 0.51 - 0.95 mg/dL 04/19/2023 10:59 PM FOUNDRY SUPERINTENDANT [facility] GFR Estimate 83 >60 mL/min/1. 73m2 04/19/2023 10:59 PM FOUNDRY SUPERINTENDANT [facility] Calcium 9.2 8.6 - 10.0 mg/dL 04/19/2023 10:59 PM FOUNDRY SUPERINTENDANT [facility] Chloride 103 98 - 107 mmol/L 04/19/2023 10:59 PM FOUNDRY SUPERINTENDANT [facility] Glucose 105(H) 70 - 99 mg/dL 04/19/2023 10:59 PM FOUNDRY SUPERINTENDANT [facility] Alkaline Phosphatase 70 40 - 150 U/L 04/19/2023 10:59 PM FOUNDRY SUPERINTENDANT [facility] Comment:Reference intervals for this test were updated on 04/12/2023 to more accurately reflect our healthy population. There may be differences in the flagging of prior results with similar values performed with this method. Interpretation of those prior results can be made in the context of the updated reference intervals. AST 19 0 - 45 U/L 04/19/2023 10:59 PM FOUNDRY SUPERINTENDANT [facility] Comment:Reference intervals for this test were updated on 11/08/2022 to more accurately reflect our healthy population. There may be differences in the flagging of prior results with similar values performed with this method. Interpretation of those prior results can be made in the context of the updated reference intervals. ALT 25 0 - 50 U/L 04/19/2023 10:59 PM FOUNDRY SUPERINTENDANT [facility] Comment:Reference intervals for this test were updated on 11/08/2022 to more accurately reflect our healthy population. There may be differences in the flagging of prior results with similar values performed with this method. Interpretation of those prior results can be made in the context of the updated reference intervals. Protein Total 6.5 6.4 - 8.3 g/dL 04/19/2023 10:59 PM FOUNDRY SUPERINTENDANT [facility] Albumin 3.9 3.5 - 5.2 g/dL 04/19/2023 10:59 PM FOUNDRY SUPERINTENDANT [facility] Bilirubin Total <0.2 <=1.2 mg/dL 04/19/2023 10:59 PM FOUNDRY SUPERINTENDANT [facility] Blood BLOOD SPECIMEN / Unknown Venipuncture / Unknown 04/19/2023 10:11 PM FOUNDRY SUPERINTENDANT 04/19/2023 10:19 PM FOUNDRY SUPERINTENDANT Aida Teague MD LAB - BLOOD ORDERABLES Final Res ult [facility] Core Lab [address] [facility], [address] [phone], [facility] [phone] * HIV Antigen Antibody Combo Alloy (04/07/2023 9:34 AM FOUNDRY SUPERINTENDANT) HIV Antigen Antibody Combo Nonreactive Nonreactive 04/08/2023 10:32 AM FOUNDRY SUPERINTENDANT SPECIALTY CORE/PROT/EN DO Comment:HIV-1 p24 Ag & HIV-1 /HIV-2 Ab Not Detected Blood BLOOD SPECIMEN / Unknown Venipuncture / Unknown 04/07/2023 9:34 AM FOUNDRY SUPERINTENDANT 04/07/2023 9:34 AM FOUNDRY SUPERINTENDANT Jeannette Jean Baptiste NP LAB - BLOOD ORDERABLES Final Result [facility] SPECIALTY CORE/PROT/ENDO [facility] Specialty Core/Prot/Endo [address] [facility], [address] [address], [facility] [phone] * Hepatitis C Screen Reflex to HCV RNA Quant and Genotype (04/07/2023 9:34 AM FOUNDRY SUPERINTENDANT) Hepatitis C Antibody Nonreactive Nonreactive 04/08/2023 9:37 AM FOUNDRY SUPERINTENDANT SPECIALTY CORE/PROT/EN DO Blood BLOOD SPECIMEN / Unknown Venipuncture / Unknown 04/07/2023 9:34 AM FOUNDRY SUPERINTENDANT 04/07/2023 9:34 AM FOUNDRY SUPERINTENDANT Narrative SPECIALTY CORE/PROT/ENDO - 04/08/2023 9:37 AM FOUNDRY SUPERINTENDANT Assay performance characteristics have not been established for newborns, infants, and children. us Jeannette Jean Baptiste NP LAB - BLOOD ORDERABLES Final Result [facility] SPECIALTY CORE/PROT/ENDO Specialty Core/Prot/Endo [address] [facility] [address] Building, Room [address] [place] [address], [facility] [phone] * Lipid panel reflex to direct LDL [...] or equal to 220 mg/dL Eulalia Redman WOOD GOUGER GRINDING WHEEL DRESSER LAB - BLOOD ORDER EMMETT Final Result [facility] [address] [facility], [address] [place] [phone], [facility] [phone] * Pap screen with HPV - recommended [...] CDT 02/22/2023 11:50 AM CDT Eulalia Henrysyedzaki WOOD GOUGER GRINDING WHEEL DRESSER LAB - BEAKER AP F inal Result SPECIALTY LABS Specialty Lab [address] [facility] [address], [address] [address], [facility] [phone] * HPV High Risk Types DNA Cervical [...] CDT 02/25/2023 10:26 AM CDT Eulalia Henrysyedzaki WOOD GOUGER GRINDING WHEEL DRESSER LAB - BLOOD ORDER EMMETT Final Result [facility] [address] [facility] [address], [address] [place] [address], [facility] [phone] from Last 3 Months or Most Recently Relevant to Health Maintenance Insurance [facility]NAG[facility] Care Teams Shingler Relationship Specialty Start Date End Date System, Provider Not In PCP - General Clinic 07/15/23 Shirlene Amos MD [facility] [place] [address] Dermatology 12/29/15 Pat Cole APRN GRINDING WHEEL DRESSER [address] [place] [address] Nurse Practitioner 01/19/22 Corby Centeno MD [address] [place] [address] [phone] Dermatology 03/29/23 Cynthia Dubon MD [address] [place] [address] 444695 Cardiovascular Disease 04/19/23 Wilma Saba MD [address] [place], [place] [address] Assigned OBGYN Provider 04/09/23 Jeannette eJan Baptiste RIG OPERATOR [address] [place] [address] 434845 Assigned PCP 06/23/23 Cynthia Dubon MD [address] [place] [address] [id number] Assigned Heart and Vascular Provider 07/01/23 Corby Centeno MD [address] [place] [address] 738425 Assigned Surgical Provider 11/20/23
--- OUTSIDE RECORDS SUMMARY | 2024-05-03 09:07 | XMS_ITS | Encounter Summary ---
Author Organization [place] Address [address] [facility] [place] [address] Care Team Providers Care Software Engineer Name Role Phone BetteShirlene MD Unavailable [phone] [facility] Primary Care Provider Burton Duncan MD Unavailable [phone] Pat Cole APRN ULTRASOUND APPLICATIONS SPECIALIST Unavailable [phone] Yohana Estes PA-C Unavailable [phone] Letha Manzanares MD Unavailable Unavailable Corby Centeno MD Unavailable [phone] Cynthia Dubon MD Unavailable [phone] Letha Manzanares MD Unavailable Unavailable Wilma Saba MD Unavailable [phone] Jeannette Jean Baptiste NP Unavailable [phone] Cynthia Dubon MD Unavailable [phone] System, Provider Not In Primary Care Provider Un available Corby Centeno MD Unavailable [phone] Reason for Visit * Reason Onset Date Comments Appointment 03/01/2023 Encounter Details Date Type Department Care Team (Late st Contact Info) Description 03/01/2023 Telephone [facility] [address] [place] [address] Ewelina Alexandra MD [address] [place] [address] Appointment Social History Tobacco Use Types [...] PM CDT Legal Sex Female 4:01 AM DEPARTMENT STORE MANAGER Gender Identity Female 09/29/2020 3:49 PM CDT Sexual Orientation Straight 09/29/2020 3: 49 PM CDT COVID-19 Exposure Response Date Recorded In the last 10 days, have nathen evans been in contact with someone who was [...] e-consult? Pleaseadvise. [facility] can be reached at [phone], ok to leave detailed information on voicemail. * Telephone Encounter - Luz Montgomery - 03/04/2023 8:12 AM CDT Central scheduling is unable to determine which spots are available to use for this visit, a searchof all clinics was preformed both in person and virtual, please assist [facility] in getting appt moved toa sooner at Dr Vizcarra's request. Please call [facility] at [phone]. My apologies and thank youfor your help * Telephone Encounter - Alysia Vizcarra MD - 03/01/2023 5:56 PM CDT Endocrine triage The scheduled first available endocrine appointment timeframe is acceptable. E- consult may be an option for answer to specific question by the referring provider. E-consults generally have a responsewithin 3 days. Alysia Vizcarra MD * Telephone Encounter - LaurenKatty farmer - 03/01/2023 2:50 PM CDT [facility] Call Center Phone Message May a detailed message be left on voicemail: yes Reason for Call: Other: Pt being referred for Thyroid nodule, no appt available in 4 weeks, please call [facility] at [place] [facility] at [phone] documented in this encounter Plan of Treatment Not on file documented as of this encounter Visit Diagnoses Not on filedocumented in this encounter Additional Health Concerns Assessment Noted Time PHQ-9 Depression Total Score: 2 02/23/20 10:16 AM CDT documented as of this encounter Care Teams Software Engineer Relationship Specialty Start Date End Date Clinic - [facility] [id number] [place] [address] PCP - General Clinic 10/03/22 07/14/23 System, Provider Not In PCP - General Clinic 07/15/23 Shirlene Amos MD [address] [facility] [place] [address] Dermatology 12/29/15 Burton Duncan MD [address] [place], [place] 392451 Assigned Musculoskeletal Provider 12/19/21 07/21/23 Pat Cole APRN ULTRASOUND APPLICATIONS SPECIALIST [address] [place] [address] Nurse Practitioner 01/19/22 Yohana Estes PA-C [address] [place], [place] 072800 Assigned PCP 05/08/22 06/22/23 Letha Manzanares MD [address] [place] [address] Ophthalmology 03/25/23 02/15/24 Corby Centeno MD [address] [place] [address] MD Dermatology 03/29/23 Cynthia Dubon MD [address] [place] [address] Cardiovascular Disease 04/19/23 Letha Manzanares MD Assigned Surgical Provider 04/23/23 11/19/23 Wilma Saba MD [address] [place], [place] 29[address] Assigned OBGYN Provider 04/09/23 Jeannette Jean Baptiste NP [address] [place] [address] 049615 Assigned PCP 06/23/23 Cynthia Dubon MD [address] [place] [address] [phone] Assigned Heart and Vascular Provider 07/01/23 Corby Centeno MD [address] [place] [address] 309565 Assigned Surgical Provider 11/20/23 documented as of this encounter
--- OUTSIDE RECORDS SUMMARY | 2024-05-03 09:07 | XMS_ITS | Encounter Summary ---
Author Organization [place] Address [address] [facility] [place] [address] Care Team Providers Care Concert Promoter Name Role Phone Shirlene Amos MD Unavailable [phone] Pat Cole APRN SOLUTION DIRECTOR Unavailable [phone] Corby Centeno MD Unavailable [phone] Cynthia Dubon MD Unavailable [phone] Wilma Saba MD Unavailable [phone] Jeannette Jean Baptiste NP Unavailable [phone] Cynthia Dubon MD Unavailable [phone] System, Provider Not In Primary Care Provider Un available Corby Centeno MD Unavailable [phone] Reason for Visit * Reason Comments Medication Refill levocetirizine (GNP ALLERGY RELIEF 24 HR) 5 MG tablet Encounter Details Date Type Department Care Team (Late st Contact Info) Description 04/06/2024 Refill [facility] [address] [address] Corby Centeno MD [address] [place] [address] Medication Refill ( levocetirizine (GNP ALLERGY RELIEF 24 HR) 5 MG tablet) Social History Tobacco Use Types Packs/Day Years [...] PM CDT Legal Sex Female 4:01 AM ARMATURE WINDER REPAIRER Gender Identity Female 09/29/2020 3:49 PM CDT Sexual Orientation Straight 09/29/2020 3: 49 PM CDT documented as of this encounter Miscellaneous Notes * Telephone Encounter - Martine Lobato RN - 04/10/2024 9:12 AM ARMATURE WINDER REPAIRER Last Clinic Visit: 10/18/2023 [facility] [place] levocetirizine (GNP ALLERGY RELIEF 24 HR) 5 MG tablet -Antihistamine: Refilled qty to 12 months from last visit (process #1/Derm protocol). *last ordered as levocetirizine (XYZAL) 5 MG tablet 10/18/2023 Disp:30 R:2 - direction 1 tab (5 mg) Q Morning TURE WINDER REPAIRER documented in this encounter Plan of Treatment Not on file documented as of this encounter Visit Diagnoses Diagnosis Mild intermittent asthma with acute exacerbation Unspecified asthma, with exacerbation Non-seasonal allergic rhinitis due to pollen Angioedema, subsequent encounter Nut allergy Allergy, unspecified not elsewhere classified Atopy Other allergy, other than to medicinal agents documented in this encounter Additional Health Concerns Assessment Noted Time PHQ-9 Depression Total Score: 1 04/07/20 7:51 AM ARMATURE WINDER REPAIRER documented as of this encounter Care Teams Concert Promoter Relationship Specialty Start Date End Date System, Provider Not In PCP - General Clinic 07/15/23 Shirlene Amos MD [address] [place] [address] [place] [address] Dermatology 12/29/15 Pat Cole APRN SOLUTION DIRECTOR [address] [place] [address] [phone] Nurse Practitioner 01/19/22 Corby Centeno MD [address] [place] [address] [phone] Dermatology 03/29/23 Cynthia Dubon MD [address] [place] [address] 063965 Cardiovascular Disease 04/19/23 Wilma Saba MD [address] [place] [address] Assigned OBGYN Provider 04/09/23 Jeannette Jean Baptiste NP [address] [address] Assigned PCP 06/23/23 Cynthia Dubon MD [address] [place] [address] [id number] Assigned Heart and Vascular Provider 07/01/23 Corby Centeno MD [address] [place] [address] 240235 Assigned Surgical Provider 11/20/23 documented as of this encounter
--- OUTSIDE RECORDS SUMMARY | 2024-05-03 09:07 | XMS_ITS | Encounter Summary ---
Author Organization [place] Address [address] [facility] [place] [address] Care Team Providers Care Butcher Fish Name Role Phone Shirlene Amos MD Unavailable [phone] [facility] Primary Care Provider Heidi Gunn PA-C Unavailable [phone] Burton Duncan MD Unavailable [phone] Pat Cole APRN TERMINAL OPERATIONS SUPERVISOR Unavailable [phone] Yohana Estes-C Unavailable [phone] Letha Manzanares MD Unavailable Unavailable Corby Centeno MD Unavailable [phone] Cynthia Dubon MD Unavailable [phone] Letha Manzanares MD Unavailable Unavailable Wilma Saba MD Unavailable [phone] Jeannette Jean Baptiste NP Unavailable [phone] Cynthia Dubon MD Unavailable [phone] System, Provider Not In Primary Care Provider Un available Corby Centeno MD Unavailable Reason for Visit * Reason Onset Date Comments Procedure 03/01/2022 bilateral lumbar 3,4,5 medial branch nerve blocks #1 with plan to proceed to RFA Encounter Details Date Type Department Care Team (Late st Contact Info) Description 03/01/2022 Telephone [facility] [address] [facility] [place] [phone] Pat Cole APRN TERMINAL OPERATIONS SUPERVISOR [address] [place] [address] Procedure ( bilateral lumbar 3,4,5 medial [...] PM CDT Legal Sex Female 4:01 AM HUMAN RESOURCES FILE CLERK Gender Identity Female 09/29/2020 3:49 PM [...] be done at which interventional clinic site? [facility] Procedure [...] DO NOT SCHEDULE and route to [place]. ?? MBBs must be scheduled with elapsed [...] PA is needed ?? IF SCHEDULING IN [place] AND NEEDS A PA, IT IS OKAY TO SCHEDULE. [place] HANDLES THEIR OWN PA'S AFTER THE PATIENT [...] route to Yelena Begum and PM&R Nurse [[id number]] Is an interpreter deaf needed? No Patient has a drive home? [...] route to CHUCKIE gordon/ Dr. Beck's Team For any patients with platelet count <100, [...] and note in scheduling comments.) Allergies: Mold, [place] [nuts], Claritin [loratadine], Flexeril [cyclobenzaprine], Imitrex [sumatriptan], and Morphine Does patient have an MRI/CT? YES: 2020 Check Procedure Scheduling Grid to see if required. ?? Was the MRI done within the last 3 years? Yes ?? If yes, where was the MRI done i.e.[facility], [facility], [facility], [facility] etc? [facility] ?? If no, do not schedule and route to nursing/ Dr. Beck's Team ?? If MRI was not done at [facility], [facility] or [facility] do NOT schedule and route [...] day of the procedu re, please call [phone] to reschedule. YES: Reminders: ?? If you [...] Total Score: 5 05/06/20 21 7:33 AM HUMAN RESOURCES FILE CLERK documented as of this encounter Care Teams Butcher Fish Relationship Specialty Start Date End Date Clinic - [facility] [address] [place] [address] PCP - General Clinic 10/03/22 07/14/23 System, Provider Not In PCP - General Clinic 07/15/23 Shirlene Amos MD [address] [facility] [place] [address] Dermatology 12/29/15 Heidi Gunn PAGuillermoC [address] [place] [address] Assigned PCP 03/08/21 05/07/22 Burton Duncan MD 4000 [place] [address] Assigned Musculoskeletal Provider 12/19/21 07/21/23 Pat Cole APRN TERMINAL OPERATIONS SUPERVISOR [address] [place] [address] Nurse Practitioner 01/19/22 Yohana Estes PA-C 290 [place] [address] Assigned PCP 05/08/22 06/22/23 Letha Manzanares MD [address] [place] [address] MD Anthony 03/25/23 02/15/24 Corby Centeno MD [address] [place] [address] Dermatology 03/29/23 Cynthia Dubon MD [address] [place] [address] 036165 Cardiovascular Disease 04/19/23 Letha Manzanares MD Assigned Surgical Provider 04/23/23 11/19/23 Wilma Saba MD [address] [facility] [address] [place], [place] 328714 Assigned OBGYN Provider 04/09/23 Jeannette Jean Baptiste NP [address] [place] [address] 920505 Assigned PCP 06/23/23 Cynthia Dubon MD [address] [place] [address] 126235 Assigned Heart and Vascular Provider 07/01/23 Corby Centeno MD 9 [place] [address] Assigned Surgical Provider 11/20/23 documented as of this encounter
--- OUTSIDE RECORDS SUMMARY | 2024-05-03 09:07 | XMS_ITS | Encounter Summary ---
Author Organization [place] Address [address] [facility] [place] [address] Care Team Providers Care Strip Presser Name Role Phone Shirlene Amos MD Unavailable [phone] [facility] Primary Care Provider Heidi Gunn PA-C Unavailable [phone] Burton Duncan MD Unavailable [phone] Pat Cole APRN FOUNTAIN WORKER Unavailable [phone] Yohana Estes-C Unavailable [phone] Letha Manzanares MD Unavailable Unavailable Corby Centeno MD Unavailable [phone] Cynthia Dubon MD Unavailable [phone] Letha Manzanares MD Unavailable Unavailable Wilma Saba MD Unavailable [phone] Jeannette Jean Baptiste NP Unavailable [phone] Cynthia Dubon MD Unavailable [phone] System, Provider Not In Primary Care Provider Un available Corby Centeno MD Unavailable [phone] Reason for Visit * Reason Onset Date Comments Patient Request 03/01/2022 Encounter Details Date Type Department Care Team (Late st Contact Info) Description 03/01/2022 Telephone [facility] [address] [facility] [place] [phone] Pat Cole APRN [facility] [address] [facility] [place] [address] Patient Request Social History Tobacco Use Types [...] PM CDT Legal Sex Female 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 [place] [address] Dermatology 12/29/15 Heidi Gunn PA-C [address] [place] [address] Assigned PCP 03/08/21 05/07/22 Burton Duncan MD [address] [place] [address] Assigned Musculoskeletal Provider 12/19/21 07/21/23 Pat Cole APRN FOUNTAIN WORKER [address] [place] [address] 145685 Nurse Practitioner 01/19/22 Yohana Estes PA-C 290 [place] [address] Assigned PCP 05/08/22 06/22/23 Letha Manzanares MD 290 [place] [address] Ophthalmology 03/25/23 02/15/24 Corby Centeno MD [address] [place] [address] 332245 Dermatology 03/29/23 Cynthia Dubon MD [address] [place] [address] 041725 Cardiovascular Disease 04/19/23 Letha Manzanares MD Assigned Surgical Provider 04/23/23 11/19/23 Wilma Saba MD [address] [place], [place] [address]E [address] 559294 Assigned OBGYN Provider 04/09/23 Jeannette Jean Baptiste NP [address] [place] [address] 569325 Assigned PCP 06/23/23 Cynthia Dubon MD [address] [place] [address] 752365 Assigned Heart and Vascular Provider 07/01/23 Corby Centeno MD [address] [place] [address] 177935 Assigned Surgical Provider 11/20/23 documented as of this encounter
--- OUTSIDE RECORDS SUMMARY | 2024-05-03 09:07 | XMS_ITS | Encounter Summary ---
Author Organization [place] Address [address] [facility] [place] [address] Care Team Providers Care Director E Learning Name Role Phone Shirlene Amos MD Unavailable [facility] Primary Care Provider Franklyn Chadwick DPM Unavailable [phone] Heidi Gunn PA-C Unavailable Sukumar Villarreal MD Unavailable [phone] Burton Duncan MD Unavailable [phone] Pat Cole APRN FIXED INTEREST DEALER Unavailable [phone] Yohana Estes PA-C Unavailable [phone] Letha Manzanares MD Unavailable Unavailable Corby Centeno MD Unavailable [phone] Cynthia Dubon MD Unavailable [phone] Letha Manzanares MD Unavailable Unavailable Wilma Saba MD Unavailable [phone] Jeannette Jean Baptiste NP Unavailable [phone] Cynthai Dubon MD Unavailable [phone] System, Provider Not In Primary Care Provider Un available Corby Centeno MD Unavailable [phone] Encounter Details Date Type Department Care Team (Late st Contact Info) Description 11/11/2021 [facility] [address] [place] [phone] Geraldo Lui MA Social History Tobacco Use [...] PM CDT Legal Sex Female 4:01 AM IMMIGRATION OFFICER Gender Identity Female 09/29/2020 3:49 PM [...] Total Score: 5 05/06/20 21 7:33 AM IMMIGRATION OFFICER documented as of this encounter Care Teams Director E Learning Relationship Specialty Start Date End Date [facility] [address] [place] [address] PCP - General Clinic 10/03/22 07/14/23 System, Provider Not In PCP - General Clinic 07/15/23 Shirlene Amos MD [address] [facility] [place] [address] Dermatology 12/29/15 Franklyn Chadwick DPM [address] [facility] [address] Assigned Musculoskeletal Provider 05/18/20 11/13/21 Heidi Gunn PA-C [address] [place] [address] Assigned PCP 03/08/21 05/07/22 Sukumar Villarreal MD [address] [place], [place] 579172 Assigned Musculoskeletal Provider 11/14/21 12/18/21 Burton Duncan MD [address] [place] [address] 269451 Assigned Musculoskeletal Provider 12/19/21 07/21/23 Pat Cole APRN FIXED INTEREST DEALER [address] [place] [address] 963845 Nurse Practitioner 01/19/22 Yohana Estes PA-C 290 [place] [address] Assigned PCP 05/08/22 06/22/23 Letha Manzanares MD 290 [place] [address] MD Anthony 03/25/23 02/15/24 Corby Centeno MD [address] [place] [address] 397135 Dermatology 03/29/23 Cynthia Dubon MD [address] [place] [address] 382695 Cardiovascular Disease 04/19/23 Letha Manzanares MD Assigned Surgical Provider 04/23/23 11/19/23 Wilma Saba MD [address] [place], [place] [address] [address] 260734 Assigned OBGYN Provider 04/09/23 Jeannette Jean Baptiste NP [address] [place] [address] 309755 Assigned PCP 06/23/23 Cynthia Dubon MD [address] [place] [address] 172585 Assigned Heart and Vascular Provider 07/01/23 Corby Centeno MD [address] [place] [address] 628125 Assigned Surgical Provider 11/20/23 documented as of this encounter
--- OUTSIDE RECORDS SUMMARY | 2024-05-03 09:07 | XMS_ITS | Encounter Summary ---
Author Organization [place] Address [address] [facility] [place] [address] Care Team Providers Care Cable Splicing Technician Name Role Phone Shirlene Amos MD Unavailable [phone] [facility] Primary Care Provider Heidi Gunn PA-C Unavailable [phone] Burton Duncan MD Unavailable [phone] Pat Cole APRN BEER STILL RUNNER COMPOUNDER Unavailable [phone] Yohana Estes-C Unavailable [phone] Letha Manzanares MD Unavailable Unavailable Corby Centeno MD Unavailable [phone] Cynthia Dubon MD Unavailable [phone] Letha Manzanares MD Unavailable Unavailable Wilma Saba MD Unavailable [phone] Jeannette Jean Baptiste NP Unavailable [phone] Cynthia Dubon MD Unavailable [phone] System, Provider Not In Primary Care Provider Un available Corby Centeno MD Unavailable Reason for Visit * Reason Onset Date Comments Referral 01/12/2022 Encounter Details Date Type Department Care Team (Late st Contact Info) Description 01/12/2022 Telephone M [address] [place] [phone] MabelLisa medina INVENTORY TECHNICIAN BEER STILL RUNNER COMPOUNDER [address] [place] [address] [place] [address] Referral Social History Tobacco Use [...] PM CDT Legal Sex Female 4:01 AM HOUSING MANAGEMENT REPRESENTATIVE Gender Identity Female 09/29/2020 3:49 PM CDT [...] vm sent my chart msg. Alida Grimm Vice President Of News [facility] [place] * Telephone Encounter - Luz Damon RN - 01/18/2022 3:03 PM CDT Please assist in scheduling a new patient appointment with Pat Cole CNP at the [facility]. LASHONDA Hanson, RN Technical Administrator [facility] [place] * Telephone Encounter - Danielle Gil - 01/12/2022 3:22 PM CDT [facility] Phone Message May a detailed message be left on voicemail: yes Reason for Call: Pt was previously seen by Lisa Monroe in [place] in May of 2020. She is now being referred back to the pain clinic. Since she is new Pt and they are not accepting New Pt's in [place], Pt is wondering if we can make an exception and see her in [place] by Lisa. Thanks. documented in this encounter Plan of Treatment Not on file documented as of this encounter Visit Diagnoses Not on filedocumented in this encounter Additional Health Concerns Assessment Noted Time PHQ-9 Depression Total Score: 5 05/06/20 21 7:33 AM HOUSING MANAGEMENT REPRESENTATIVE documented as of this encounter Care Teams Cable Splicing Technician Relationship Specialty Start Date End Date Clinic - [facility] [address] [place] [address] PCP - General Clinic 10/03/22 07/14/23 System, Provider Not In PCP - General Clinic 07/15/23 Shirlene Amos MD [address] [facility] [place] [address] Dermatology 12/29/15 Heidi Gunn, PA-C [address] [place] [address] Assigned PCP 03/08/21 05/07/22 Burton Duncan MD 4000 [place] [address] Assigned Musculoskeletal Provider 12/19/21 07/21/23 Pat Cole APRN BEER STILL RUNNER COMPOUNDER [address] [place] [address] Nurse Practitioner 01/19/22 Yohana Estes PA-C 290 [place] [address] Assigned PCP 05/08/22 06/22/23 Letha Manzanares MD [address] [place] [address] MD Anthony 03/25/23 02/15/24 Corby Centeno MD [address] [place] [address] 746885 MD Dermatology 03/29/23 Cynthia Dubon MD [address] [place] [address] 102815 Cardiovascular Disease 04/19/23 Letha Manzanares MD Assigned Surgical Provider 04/23/23 11/19/23 Wilma Saba MD [address] [place] [address] 543514 Assigned OBGYN Provider 04/09/23 Jeannette Jean Baptiste NP [address] [place] [address] 494245 Assigned PCP 06/23/23 Cynthia Dubon MD [address] [place] [address] 708795 Assigned Heart and Vascular Provider 07/01/23 Corby Centeno MD [address] [place] [address] 700955 Assigned Surgical Provider 11/20/23 documented as of this encounter
--- OUTSIDE RECORDS SUMMARY | 2024-05-03 09:08 | XMS_ITS | Encounter Summary ---
Author Organization [place] Address [address] [facility] [place] [address] Care Team Providers Care Twisting Department End Finder Name Role Phone Shirlene Amos MD Unavailable [phone] Manju Crooks VOLUNTEER PATIENT REPRESENTATIVE CNM Unavailable [facility] Primary Care Provider Zaira Queen APRN ROAD MACHINERY INSPECTOR Unavailable Franklyn Chadwick DPM Unavailable [phone] Eva Echols DO Unavailable [phone] Heidi Gunn PA-C Unavailable [phone] Sukumar Villarreal MD Unavailable [phone] Burton Duncan MD Unavailable [phone] MACHINERY INSPECTOR Unavailable [phone] Yohana Estes-C Unavailable [phone] Letha Manzanares MD Unavailable Unavailable Corby Centeno MD Unavailable [phone] Cynthia Dubon MD Unavailable [phone] Letha Manzanares MD Unavailable Unavailable Wilma Saba MD Unavailable [phone] Jeannette Jean Baptiste NP Unavailable [phone] Cynthia Dubon MD Unavailable [phone] System, Provider Not In Primary Care Provider Un available Corby Centeno MD Unavailable [phone] Encounter Details Date Type Department Care Team (Late st Contact Info) Description 11/05/[address] 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 AND BOMB INVESTIGATOR Gender Identity Female 09/29/2020 3:49 PM CDT [...] documented as of this encounter Care Teams Twisting Department End Finder Relationship Specialty Start Date End Date Clinic - [facility] [address] [place] [address] PCP - General Clinic 10/03/22 07/14/23 System, Provider Not In PCP - General Clinic 07/15/23 Shirlene Amos MD [address] [facility] [place] [address] Dermatology 12/29/15 Manju Crooks, VOLUNTEER PATIENT REPRESENTATIVE CNM Assigned OBGYN Provider 03/21/20 09/19/21 Zaira Queen, VOLUNTEER PATIENT REPRESENTATIVE ROAD MACHINERY INSPECTOR [address] [place] [address] Assigned PCP 05/04/20 03/07/21 Franklyn Chadwick DPM [address] [facility] [address] [place], [place] [address] Assigned Musculoskeletal Provider 05/18/20 11/13/21 [place] [address] [place] [address] Assigned Gastroenterology Provider 11/23/20 12/20/20 Heidi Gunn, PA-C [address] [place] [address] Assigned PCP 03/08/21 05/07/22 Sukumar Villarreal MD [address] [place], [place] 787592 Assigned Musculoskeletal Provider 11/14/21 12/18/21 Burton Duncan MD [address] [place] [address] Assigned Musculoskeletal Provider 12/19/21 07/21/[address] MACHINERY INSPECTOR [address] [place] [address] Nurse Practitioner 01/19/22 Yohana Estes PA-C [address] [place] [address] Assigned PCP 05/08/22 06/22/23 Letha Manzanares MD [address] [place] [address] [facility] 03/25/23 02/15/24 Corby Centeno MD [address] [place] [address] Dermatology 03/29/23 Cynthia Dubon MD [address] [place] [address] 206525 Cardiovascular Disease 04/19/23 Letha Manzanares MD Assigned Surgical Provider 04/23/23 11/19/23 Wilma Saba MD [address] [facility] 300 [place], [place] 139824 Assigned OBGYN Provider 04/09/23 Jeannette Jean Baptiste, DANCE STUDIO MANAGER [address] [place] [address] 160745 Assigned PCP 06/23/23 Cynthia Dubon MD [address] [place] [address] 671275 Assigned Heart and Vascular Provider 07/01/23 Corby Centeno MD 9 [place] [address] Assigned Surgical Provider 11/20/23 documented as of this encounter
--- OUTSIDE RECORDS SUMMARY | 2024-05-03 09:08 | XMS_ITS | Encounter Summary ---
Author Organization [place] Address [address] [facility] [place] [address] Care Team Providers Care Marketing Regional Consultant Name Role Phone Shirlene Amos MD Unavailable [phone] Manju Crooks QUALITY PROCESS ENGINEER CNM Unavailable [facility] Primary Care Provider Franklyn Chadwick DPM Unavailable [phone] Heidi Gunn PA-C Unavailable [phone] Sukumar Villarreal MD Unavailable [phone] Burton Duncan MD Unavailable [phone] Pat Cole APRN ENGINE CLEANER Unavailable [phone] Yohana Estes PA-C Unavailable [phone] Letha Manzanares MD Unavailable Unavailable Corby Centeno MD Unavailable [phone] Cynthia Dubon MD Unavailable [phone] Letha Manzanares MD Unavailable Unavailable Wilma Saba MD Unavailable [phone] Jeannette Jean Baptiste NP Unavailable Cynthia Dubon MD Unavailable [phone] System, Provider Not In Primary Care Provider Un available Corby Centeno MD Unavailable [phone] Encounter Details Date Type Department Care Team (Late st Contact Info) Description 05/06/2021 [facility] [place] [facility] [address] [place] [address] Dora Odom, FILTER PRESS OPERATOR Social History Tobacco Use Types Packs/Day [...] PM CDT Legal Sex Female 4:01 AM AUDIOLOGY TECHNICIAN Gender Identity Female 09/29/2020 3:49 PM CDT Sexual Orientation Straight 09/29/2020 3 :49 PM CDT COVID-19 Exposure Response Date Recorded In the last month, have you been in contact with someone who was confirmed or suspected to have Coronavirus / COVID-19? No / Unsure 05/05/2021 7:55 AM AUDIOLOGY TECHNICIAN documented as of this encounter Plan of Treatment Not on file documented as of this encounter Visit Diagnoses Not on filedocumented in this encounter Additional Health Concerns Assessment Noted Time PHQ-9 Depression Total Score: 5 05/06/20 21 7:33 AM AUDIOLOGY TECHNICIAN documented as of this encounter Care Teams Marketing Regional Consultant Relationship Specialty Start Date End Date Clinic - [facility] [address] [place] [address] PCP - General Clinic 10/03/22 07/14/23 System, Provider Not In PCP - General Clinic 07/15/23 Shirlene Amos MD [address] [facility] [place] [address] Dermatology 12/29/15 Manju Crooks, QUALITY PROCESS ENGINEER CNM Assigned OBGYN Provider 03/21/20 09/19/21 Franklyn Chadwick DPM [address] [place] [address] Assigned Musculoskeletal Provider 05/18/20 11/13/21 Heidi Gunn PA-C [address] [place] [address] Assigned PCP 03/08/21 05/07/22 Sukumar Villarreal MD [address] [place] [address] Assigned Musculoskeletal Provider 11/14/21 12/18/21 Burton Duncan MD [address] [place] [address] 984441 Assigned Musculoskeletal Provider 12/19/21 07/21/23 Pat Cole, KATHLEEN ENGINE CLEANER [address] [place] [address] 549925 Nurse Practitioner 01/19/22 Yohana Estes PA-C 290 [place] [address] Assigned PCP 05/08/22 06/22/23 Letha Manzanares MD 290 [place] [address] MD Anthony 03/25/23 02/15/24 Corby Centeno MD [address] [place] [address] Dermatology 03/29/23 Cynthia Dubon MD [address] [place] [address] 191965 Cardiovascular Disease 04/19/23 Letha Manzanares MD Assigned Surgical Provider 04/23/23 11/19/23 Wilma Saba MD [address] 413324 Assigned OBGYN Provider 04/09/23 Jeannette Jean Baptiste NP [address] [place] [address] 170925 Assigned PCP 06/23/23 Cynthia Dubon MD [address] [place] [address] 480735 Assigned Heart and Vascular Provider 07/01/23 Corby Centeno MD [address] [place] [address] 909255 Assigned Surgical Provider 11/20/23 documented as of this encounter
--- OUTSIDE RECORDS SUMMARY | 2024-05-03 09:08 | XMS_ITS | Encounter Summary ---
Author Organization [place] Address [address] [facility] [place] [address] Care Team Providers Care Automobile Spring Repairer Name Role Phone Shirlene Amos MD Unavailable [phone] Manju Crooks GOLF CLUB HEAD INSPECTOR AND ADJUSTER CNM Unavailable [facility] Primary Care Provider Zaira Queen APRN DISPENSING AND MEASURING OPTICIAN Unavailable Franklyn Chadwick DPM Unavailable [phone] Eva Echols DO Unavailable +[phone] Heidi Gunn PA-C Unavailable [phone] Sukumar Villarreal MD Unavailable +[phone] Burton Duncan MD Unavailable +[phone] Pat Cole APRN DISPENSING AND MEASURING OPTICIAN Unavailable [phone] Yohana Estes-C Unavailable [phone] Letha Manzanares MD Unavailable Unavailable Corby Centeno MD Unavailable +[phone] Cynthia Dubon MD Unavailable [phone] Letha Manzanares MD Unavailable Unavailable Wilma Saba MD Unavailable [phone] Jeannette Jean Baptiste NP Unavailable [phone] Cynthia Dubon MD Unavailable [phone] System, Provider Not In Primary Care Provider Un available Corby Centeno MD Unavailable [phone] Encounter Details Date Type Department Care Team (Late st Contact Info) Description 09/05/2020 MyC Medical [facility] [address] [facility] [address] [place] [address] Zaira Queen APRN [facility] [address] [place] [address] Social History Tobacco Use Types [...] PM CDT Legal Sex Female 4:01 AM ABRASIVE WHEEL MOLDER Gender Identity Female 09/29/2020 3:49 PM CDT [...] documented as of this encounter Care Teams Automobile Spring Repairer Relationship Specialty Start Date End Date Clinic - [facility] [address] [place] [address] PCP - General Clinic 10/03/22 07/14/23 System, Provider Not In PCP - General Clinic 07/15/23 Shirlene Amos MD [address] [facility] [place] [address] Dermatology 12/29/15 Manju Crooks, GOLF CLUB HEAD INSPECTOR AND ADJUSTER CNM Assigned OBGYN Provider 03/21/20 09/19/21 Zaira Queen APRN DISPENSING AND MEASURING OPTICIAN [address] [place] [address] Assigned PCP 05/04/20 03/07/21 Franklyn Chadwick DPM [address] [place] [address] [place] [address] Assigned Musculoskeletal Provider 05/18/20 11/13/21 [place] [address] [place] [address] Assigned Gastroenterology Provider 11/23/20 12/20/20 Heidi Gunn PA-C [address] [place] [address] Assigned PCP 03/08/21 05/07/22 Sukumar Villarreal MD [address] [place] [address] Assigned Musculoskeletal Provider 11/14/21 12/18/21 Burton Duncan MD [address] [place] [address] Assigned Musculoskeletal Provider 12/19/21 07/21/23 Pat Cole APRN CNP [address] [place] [address] Nurse Practitioner 01/19/22 Yohana Estes PA-C [address] [place] [address] Assigned PCP 05/08/22 06/22/23 Letha Manzanares MD [address] [place] [address] MD Anthony 03/25/23 02/15/24 Corby Centeno MD [address] [place] [address] Dermatology 03/29/23 Cynthia Dubon MD [address] [place] [address] 303975 Cardiovascular Disease 04/19/23 Letha Manzanares MD Assigned Surgical Provider 04/23/23 11/19/23 Wilma Saba MD [address] [place] [address] 580284 Assigned OBGYN Provider 04/09/23 Jeannette Jean Baptiste, BODY RECALL INSTRUCTOR [address] [place] [address] 183175 Assigned PCP 06/23/23 Cynthia Dubon MD [address] [place] [address] 928285 Assigned Heart and Vascular Provider 07/01/23 Corby Centeno MD [address] [place] [address] Assigned Surgical Provider 11/20/23 documented as of this encounter
--- OUTSIDE RECORDS SUMMARY | 2024-05-03 09:08 | XMS_ITS | Encounter Summary ---
Author Organization [place] Address [address] [facility] [place] [address] Care Team Providers Care Solar Panel Installer Name Role Phone Olga Sandoval MD Primary Care Provider Shirlene Amos MD Unavailable [phone] Pat Mayorga PA-C Unavailable +[phone] Pat Mayorga PA-C Unavailable +[phone] [facility] Primary Care Provider Heidi Gunn-C Primary Care Provider + [phone] Heidi Gunn PA-C Unavailable [phone] Manju Crooks APRN CNM Unavailable [facility] Primary Care Provider Zaira Queen APRN INSERT OPERATOR Unavailable Franklyn Chadwick DPM Unavailable [phone] Eva Echols DO Unavailable +[phone] Luis ARadcarey STARKEYC Unavailable +[phone] Sukumar Villarreal MD Unavailable +[phone] Burton Duncan MD Unavailable +[phone] Pat Cole APRN INSERT OPERATOR Unavailable [phone] Yohana EstesC Unavailable [phone] Letha Manzanares MD Unavailable Unavailable Corby Centeno MD Unavailable [phone] Cynthia Dubon MD Unavailable [phone] Letha Manzanares MD Unavailable Unavailable Wilma Saba MD Unavailable [phone] Jeannette Jean Baptiste NP Unavailable [phone] Cynthia Dubon MD Unavailable [phone] System, Provider Not In Primary Care Provider Un available Corby Centeno MD Unavailable [phone] Reason for Visit * Reason Onset Date Comments Patient Request for Note/Letter 07/06/2018 Encounter Details Date Type Department Care Team (Late st Contact Info) Description 07/06/[address] [place] [address] [place] [address] [place] [address] [place] [address] Patient Request for Note/Letter Social History [...] PM CDT 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 Please fax this to [phone] attyessy junior. Please call pt with any questions. thanks ROENTEROLOGY NURSE documented in this encounter Plan of Treatment Not on file documented as of this encounter Visit Diagnoses Not on filedocumented in this encounter Additional Health Concerns Assessment Noted Time PHQ-9 Depression Total Score: 4 04/13/20 16 7:37 AM GASTROENTEROLOGY NURSE documented as of this encounter Care Teams Solar Panel Installer Relationship Specialty Start Date End Date Olga Sandoval MD [address] [place] [address] PCP - General Family Practice 06/26/14 06/14/19 Pat Mayorga PA-C [address] [facility] [place] [address] PCP - Assigned PCP 07/02/18 08/01/18 [facility] [address] [place] [address] PCP - General 06/15/19 06/19/19 Heidi Gunn, PA-C [address] [place] [address] PCP - General Physician Refueling Rampman - Medical 06/20/19 04/29/20 Clinic - [facility] [address] [place] [address] PCP - General Clinic 10/03/22 07/14/23 System, Provider Not In PCP - General Clinic 07/15/23 Shirlene Amos MD [address] [facility] [place] [address] Dermatology 12/29/15 Pat Mayorga PA-C [address] [facility] [place] [address] Assigned PCP 07/02/18 06/23/19 Heidi Gunn PA-C [address] [place] [address] Assigned PCP 06/24/19 05/03/20 Manju Crooks GARBAGE COLLECTION SUPERVISOR CNM Assigned OBGYN Provider 03/21/20 09/19/21 Zaira Queen APRN INSERT OPERATOR [address] [place] [address] Assigned PCP 05/04/20 03/07/21 Franklyn Chadwick DPM [address] [facility] [place] [address] Assigned Musculoskeletal Provider 05/18/20 11/13/21 [place] [address] [place] [address] Assigned Gastroenterology Provider 11/23/20 12/20/20 Heidi Gunn PA-C [address] [place] [address] Assigned PCP 03/08/21 05/07/22 Sukumar Villarreal MD [address] [place] [address] Assigned Musculoskeletal Provider 11/14/21 12/18/21 Burton Duncan MD [address] [place] [address] 024521 Assigned Musculoskeletal Provider 12/19/21 07/21/23 Pat Cole APRN CNP [address] [place] [address] 198475 Nurse Practitioner 01/19/22 Yohana Estes PA-C [address] [place], [place] 306110 Assigned PCP 05/08/22 06/22/23 Letha Manzanares MD [address] [place] [address] Ophthalmology 03/25/23 02/15/24 Corby Centeno MD [address] [place] [address] 878445 Dermatology 03/29/23 Cynthia Dubon MD [address] [place] [address] 173405 Cardiovascular Disease 04/19/23 Letha Manzanares MD Assigned Surgical Provider 04/23/23 11/19/23 Wilma Saba MD [address] [place] [address] Assigned OBGYN Provider 04/09/23 Jeannette Jean Baptiste NP [address] [address] Assigned PCP 06/23/23 Cynthia Dubon MD [address] [place] [address] 124515 Assigned Heart and Vascular Provider 07/01/23 Corby Centeno MD [address] [place] [address] 520065 Assigned Surgical Provider 11/20/23 documented as of this encounter
--- OUTSIDE RECORDS SUMMARY | 2024-05-03 09:08 | XMS_ITS | Encounter Summary ---
Author Organization [place] Address [address] [facility] [place] [address] Care Team Providers Care Dietitian Teaching Name Role Phone Shirlene Amos MD Unavailable [phone] Manju Crooks LIVE SOURCE OPERATOR CNM Unavailable [facility] Primary Care Provider Zaira Queen APRN METAL SPRAYER MACHINED PARTS Unavailable Franklyn Chadwick DPM Unavailable [phone] Eva Echols DO Unavailable [phone] Heidi Gunn PA-C Unavailable [phone] Sukumar Villarreal MD Unavailable [phone] Burton Duncan MD Unavailable [phone] Pat Cole APRN METAL SPRAYER MACHINED PARTS Unavailable [phone] Yohana Estes-C Unavailable [phone] Letha Manzanares MD Unavailable Unavailable Corby Centeno MD Unavailable [phone] Cynthia Dubon MD Unavailable [phone] Letha Manzanares MD Unavailable Unavailable Wilma Saba MD Unavailable [phone] Jeannette Jean Baptiste NP Unavailable [phone] Cynthia Dubon MD Unavailable [phone] System, Provider Not In Primary Care Provider Un available Corby Centeno MD Unavailable [phone] Reason for Referral * Diagnostic Imaging Ultrasound (Routine) - Closed Specialty Diagnoses / Procedures Referred By Contac t Referred To Contact Diagnoses Pelvic cramping Procedures US Pelvic Complete with Transvaginal Zaira Queen APRN CNP Phone: tel: fax: Referral ID Status Reason Start Date Expiration Date Visits Re quested Visits Authorized [id number] Closed 08/28/2020 08/28/2021 1 1 * (Routine) - Closed Specialty Diagnoses / Procedures Referred By Contmoises t Referred To Contact Gastroenterology Diagnoses LUQ abdominal pain Epigastric pain Zaira Queen APRN CNP Phone: tel: fax: Referral ID Status Reason Start Date Expiration Date Visits Re quested Visits Authorized [id number] Closed 08/27/2020 08/27/2021 1 1 Scheduling Instructions If EUS or ERCP is selected, it requires clinical review prior to scheduling. Question Answer Procedure: Upper Endoscopy Upper Endoscopy Type: EGD Upper Endoscopy Sedation: Conscious/Moderate Upper Endoscopy Reason for Procedure: LUQ/epigastric pain after eating, CT unremarkable Preferred Location: [facility] Scheduling Instructions: If you have not heard from the scheduling office within 2 business days, please call [phone]. Comments Please be aware that coverage of these services is subject to the terms and limitations of your health insurance plan. Call member services at your health plan with any benefit or coverage questions. If you have not heard from the scheduling office within 2 business days, please call [phone]. Encounter Details Date Type Department Care Team (Late st Contact Info) Description 08/26/2020 MyC Medical Advice [facility] [address] [facility] [address] [place] [address] Zaira Queen APRN METAL SPRAYER MACHINED PARTS [address] [place] [address] LUQ abdominal pain (Primary Dx); Epigastric pain; [...] PM CDT Legal Sex Female 4:01 AM COOKER CASING Gender Identity Female 09/29/2020 3:49 PM CDT [...] Impressions 08/29/2020 6:52 PM CDT IMPRESSION: 1. Probable dominant follicle in the [...] is seen. JACE HOWARD MD Zaira Queen APRN, CNP IM US ORDERA BLES Final Result documented in [...] documented as of this encounter Care Teams Dietitian Teaching Relationship Specialty Start Date End Date Clinic - [address] [address] PCP - General Clinic 10/03/22 07/14/23 System, Provider Not In PCP - General Clinic 07/15/23 Shirlene Amos MD [address] [facility] [place] [address] Dermatology 12/29/15 Manju Crooks APRN CN Assigned OBGYN Provider 03/21/20 09/19/21 Zaira Queen APRN METAL SPRAYER MACHINED PARTS [address] [place] [address] Assigned PCP 05/04/20 03/07/21 Franklyn Chadwick DPM [address] [place] [address] Assigned Musculoskeletal Provider 05/18/20 11/13/21 [place] [address] [place] [address] Assigned Gastroenterology Provider 11/23/20 12/20/20 Heidi Gunn PA-C [address] [place] [address] Assigned PCP 03/08/21 05/07/22 Sukumar Villarreal MD [address] [place], [place] 477532 Assigned Musculoskeletal Provider 11/14/21 12/18/21 Burton Duncan MD [address] [place] [address] Assigned Musculoskeletal Provider 12/19/21 07/21/23 Pat Cole APRN METAL SPRAYER MACHINED PARTS 9[address] [place], [place] 418145 Nurse Practitioner 01/19/22 Yohana Estes PA-C 290 [place] [address] Assigned PCP 05/08/22 06/22/23 Letha Manzanares MD [address] [place] [address] MD Ophthalmology 03/25/23 02/15/24 Corby Centeno MD [address] [place] [address] MD Dermatology 03/29/23 Cynthia Dubon MD [address] [place] [address] Cardiovascular Disease 04/19/23 Letha Manzanares MD Assigned Surgical Provider 04/23/23 11/19/23 Wilma Saba MD [address] [place] [address] 955734 Assigned OBGYN Provider 04/09/23 Jeannette Jean Baptiste, ASSISTANT NURSE MANAGER [address] [place] [address] Assigned PCP 06/23/23 Cynthia Dubon MD [address] [place] [address] 763845 Assigned Heart and Vascular Provider 07/01/23 Corby Centeno MD [address] [place] [address] Assigned Surgical Provider 11/20/23 documented as of this encounter
--- OUTSIDE RECORDS SUMMARY | 2024-05-03 09:08 | XMS_ITS | Encounter Summary ---
Author Organization [place] Address [address] [facility] [place] [address] Care Team Providers Care Fire Prevention Research Engineer Name Role Phone Shirlene Amos MD Unavailable Heidi GunnC Primary Care Provider [phone] Heidi Gunn-Tyshawn Unavailable [phone] Manju Crooks LENS POLISHER HAND CNM Unavailable [facility] Primary Care Provider Zaira Queen APRN CREEL OPERATOR Unavailable Franklyn Chadwick DPM Unavailable [phone] Eva Echols DO Unavailable [phone] Heidi GunnC Unavailable [phone] Sukumar Villarreal MD Unavailable [phone] Burton Duncan MD Unavailable [phone] Pat Cole APRN CREEL OPERATOR Unavailable +[phone] Yohana Estes PA-C Unavailable [phone] Letha Manzanares MD Unavailable Unavailable Corby Centeno MD Unavailable [phone] Cynthia Dubon MD Unavailable [phone] Letha Manzanares MD Unavailable Unavailable Wilma Saba MD Unavailable [phone] Jeannette Jean Baptiste [place]EL Unavailable +[phone] Cynthia Dubon MD Unavailable [phone] System, Provider Not In Primary Care Provider Un available Corby Centeno MD Unavailable +[phone] Reason for Visit * Reason Onset Date Comments Outreach 07/06/2019 [facility] Cervical/PAP ATT 1 Encounter Details Date Type Department Care Team (Late st Contact Info) Description 07/06/2019 Telephone [facility] [address] [place] [address] Heidi Gunn PA-C [address] [place], [place] [id number] Outreach (PHS Cervical/PAP ATT 1) Social History [...] PM CDT Legal Sex Female 4:01 AM 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 EMERY 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 Gender Identity Female 09/29/2020 3:49 PM CDT Sexual Orientation Straight 09/29/2020 3: 49 PM CDT documented as of this encounter Miscellaneous Notes * Telephone Encounter - Shirlene Mendoza - 07/06/2019 2:32 PM CST 07/06/2019 Call Regarding Preventive Health Screening Cervical/PAP Attempt 1 Message on voicemail Comments: Outreach Antenna Specialist CS EMERY BUFFER documented in this encounter Plan of Treatment Not on file documented as of this encounter Visit Diagnoses Not on filedocumented in this encounter Additional Health Concerns Assessment Noted Time PHQ-9 Depression Total Score: 4 04/13/20 16 7:37 AM HEEL EMERY BUFFER documented as of this encounter Care Teams Fire Prevention Research Engineer Relationship Specialty Start Date End Date Heidi Gunn PA-C [address] [facility] [address] PCP - General Physician Hangar Attendant - Medical 06/20/19 04/29/20 Clinic - [facility] [address] [place] [address] PCP - General Clinic 10/03/22 07/14/23 System, Provider Not In PCP - General Clinic 07/15/23 Shirlene Amos MD [address] [facility] [place] [address] Dermatology 12/29/15 Heidi Gunn PA-C [address] [place] [address] Assigned PCP 06/24/19 05/03/20 Manju Crooks LENS POLISHER HAND CNM Assigned OBGYN Provider 03/21/20 09/19/21 Zaira Queen APRN CREEL OPERATOR [address] [place] [address] Assigned PCP 05/04/20 03/07/21 Franklyn Chadwick DPM [address] [facility] [place] [address] Assigned Musculoskeletal Provider 05/18/20 11/13/21 [place] [address] [place] [address] Assigned Gastroenterology Provider 11/23/20 12/20/20 Heidi Gunn PA-C [address] [place] [address] Assigned PCP 03/08/21 05/07/22 Sukumar Villarreal MD [address] [place], [place] 314372 Assigned Musculoskeletal Provider 11/14/21 12/18/21 Burton Duncan MD [address] [place], [place] 797771 Assigned Musculoskeletal Provider 12/19/21 07/21/23 Pat Cole APRN CNP [address] [place] [address] [id number] Nurse Practitioner 01/19/22 Yohana Estes PA-C 290 [place] [address] Assigned PCP 05/08/22 06/22/23 Letha Manzanares MD 290 [place] [address] MD Anthony 03/25/23 02/15/24 Corby Centeno MD [address] [place] [address] MD [place] 03/29/23 Cynthia Dubon MD [address] [place] [address] Cardiovascular Disease 04/19/23 Letha Manzanares MD Assigned Surgical Provider 04/23/23 11/19/23 Wilma Saba MD [address] [place], [place] [address] Assigned OBGYN Provider 04/09/23 Jeannette Jean Baptiste TEMPERATURE REGULATOR PYROMETER [address] [place] [address] 771505 Assigned PCP 06/23/23 Cynthia Dubon MD [address] [place] [address] 105475 Assigned Heart and Vascular Provider 07/01/23 Corby Centeno MD 9 [place] [address] Assigned Surgical Provider 11/20/23 documented as of this encounter
--- OUTSIDE RECORDS SUMMARY | 2024-05-03 09:08 | XMS_ITS | Encounter Summary ---
Author Organization [place] Address [address] [facility] [place] [address] Care Team Providers Care Bow Maker Name Role Phone Shirlene Amos MD Unavailable [phone] Manju Crooks BICYCLE MESSENGER CNM Unavailable [facility] Primary Care Provider Zaira Queen APRN MANUAL CONTROL AUGER PRESS OPERATOR Unavailable Franklyn Chadwick DPM Unavailable [phone] Eva Echols DO Unavailable [phone] Heidi Gunn PA-C Unavailable [phone] Sukumar Villarreal MD Unavailable [phone] Burton Duncan MD Unavailable [phone] Pat Cole APRN MANUAL CONTROL AUGER PRESS OPERATOR Unavailable [phone] Yohana Estes-C Unavailable [phone] Letha Manzanares MD Unavailable Unavailable Corby Centeno MD Unavailable [phone] Cynthia Dubon MD Unavailable [phone] Letha Manzanares MD Unavailable Unavailable Wilma Saba MD Unavailable [phone] Jeannette Jean Baptiste NP Unavailable [phone] Cynthia Dubon MD Unavailable [phone] System, Provider Not In Primary Care Provider Un available Corby Centeno MD Unavailable [phone] Reason for Referral * Diagnostic Imaging CT Scan (Routine) - Closed Specialty Diagnoses / Procedures Referred By Contac t Referred To Contact Radiology. Diagnoses LUQ abdominal pain Procedures CT Abdomen Pelvis w Contrast Zaira Queen APRN MANUAL CONTROL AUGER PRESS OPERATOR Phone: tel: fax: [facility] [address] [place] [id number] Phone: tel: Referral ID Status Reason Start Date Expiration Date Visits Re quested Visits Authorized [id number] Closed 08/25/2020 08/25/2021 1 1 Encounter Details Date Type Department Care Team (Late st Contact Info) Description 08/25/2020 MyC Medical Advice [facility] [address] [facility] [address] [place] [phone] Zaira Queen APRN MANUAL CONTROL AUGER PRESS OPERATOR [address] [place] [address] LUQ abdominal pain (Primary Dx) Social History [...] PM CDT 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 Delaney Ibarra CMA ([facility]) * Telephone Encounter - Rylie Campbell - 08/25/2020 10:58 AM CDT Replied via [employer]. CHUCKIE Odonnell/Deanna Escobar [facility] documented in this encounter Plan of Treatment Not on file documented as of this encounter Results * CT Abdomen Pelvis w Contrast (08/26/2020 10:26 AM CDT) Anatomical Region Laterality Modality Abdomen/Pelvis, SUBRAD CT MADELEINE DY, UMP CT ABDOMEN PELVIS, RAD CT Computed Tomography Impressions 08/26/2020 12:06 PM CDT IMPRESSION: 1. Postoperative changes status post cholecystectomy [...] study. JACE HOWARD MD Zaira Queen APRN MANUAL CONTROL AUGER PRESS OPERATOR IMG CT ORDERA BLES Final Result documented in this encounter Visit Diagnoses Diagnosis LUQ abdominal pain- Primary Abdominal pain, left upper quadrant LUQ abdominal pain Abdominal pain, left upper quadrant documented in this encounter Additional Health Concerns Assessment Noted Time PHQ-9 Depression Total Score: 1 08/21/19 21 7:02 AM CDT documented as of this encounter Care Teams Bow Maker Relationship Specialty Start Date End Date [facility] [address] [place] [address] PCP - General Clinic 10/03/22 07/14/23 System, Provider Not In PCP - General Clinic 07/15/23 Shirlene Amos MD [address] [facility] [place] [address] Dermatology 12/29/15 Manju Crooks APRN CNM Assigned OBGYN Provider 03/21/20 09/19/21 Zaira Queen APRN MANUAL CONTROL AUGER PRESS OPERATOR [address] [place] [address] Assigned PCP 05/04/20 03/07/21 Franklyn Chadwick DPM [address] [facility] [place] [address] Assigned Musculoskeletal Provider 05/18/20 11/13/21 [place] [address] [place] [address] Assigned Gastroenterology Provider 11/23/20 12/20/20 Heidi Gunn, PAGuillermoC [address] [place] [address] Assigned PCP 03/08/21 05/07/22 Sukumar Villarreal MD [address] [place] [address] Assigned Musculoskeletal Provider 11/14/21 12/18/21 uBrton Duncan MD [address] [place] [address] Assigned Musculoskeletal Provider 12/19/21 07/21/23 Pat Cole APRN MANUAL CONTROL AUGER PRESS OPERATOR [address] [place] [address] [id number] Nurse Practitioner 01/19/22 Yohana Estes PA-C [address] [place] [address] Assigned PCP 05/08/22 06/22/23 Letha Manzanares MD [address] [place] [address] [facility] 03/25/23 02/15/24 Corby Centeno MD [address] [place] [address] 433885 Dermatology 03/29/23 Cynthia Dubon MD [address] [place] [address] Cardiovascular Disease 04/19/23 Letha Manzanares MD Assigned Surgical Provider 04/23/23 11/19/23 Wilma Saba MD [address] [place] [address] 575304 Assigned OBGYN Provider 04/09/23 Jeannette Jean Baptiste NP [address] [id number] Assigned PCP 06/23/23 Cynthia Dubon MD [address] [place] [address] Assigned Heart and Vascular Provider 07/01/23 Corby Centeno MD [address] [place] [address] [id number] Assigned Surgical Provider 11/20/23 documented as of this encounter
--- OUTSIDE RECORDS SUMMARY | 2024-05-03 09:08 | XMS_ITS | Encounter Summary ---
Author Organization [place] Address [address] [facility] [place] [address] Care Team Providers Care Dredge Deckhand Name Role Phone Olga Sandoval MD Primary Care Provider Shirlene Amos MD Unavailable [phone] Pat Mayorga PA-C Unavailable [phone] [facility] Primary Care Provider Heidi Gunn PA-C Primary Care Provider + [phone] Heidi Gunn-C Unavailable [phone] Manju Crooks APRN CNM Unavailable [facility] Primary [facility] Provider Zaira Queen APRN TELECOMMUNICATION TOWER TECHNICIAN Unavailable Franklyn Chadwick DPM Unavailable [phone] Eva Echols DO Unavailable [phone] Heidi Gunn-C Unavailable [phone] Sukumar Villarreal MD Unavailable [phone] Burton Duncan MD Unavailable [phone] Pat Cole APRN TELECOMMUNICATION TOWER TECHNICIAN Unavailable [phone] Yohana Estes PA-C Unavailable [phone] Letha Manzanares MD Unavailable Unavailable Corby Centeno MD Unavailable [phone] Cynthia Dubon MD Unavailable Letha Manzanares MD Unavailable Unavailable Wilma Saba MD Unavailable [phone] Jeannette Jean Baptiste NP Unavailable [phone] Cynthia Dubon MD Unavailable [phone] System, Provider Not In Primary Care Provider Un available Corby Centeno MD Unavailable [phone] Reason for Visit * Reason Onset Date Comments Forms 08/07/2018 Encounter Details Date Type Department Care Team (Late st Contact Info) Description 08/07/[address] [place] [address] [place] [address] [address] [id number] Forms Social History Tobacco Use Types Packs/Day [...] PM CDT 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 Please sign and fax back Call taken on 08/07/2018 at 10:36 AM by Shirley Benoit documented in this encounter Plan of Treatment Not on file documented as of this encounter Visit Diagnoses Not on filedocumented in this encounter Additional Health Concerns Assessment Noted Time PHQ-9 Depression Total Score: 4 04/13/20 16 7:37 AM JOURNEYMAN APPRENTICE ELECTRICIANS documented as of this encounter Care Teams Dredge Deckhand Relationship Specialty Start Date End Date Olga Sandoval MD [address] [place] [address] PCP - General Family Practice 06/26/14 06/14/19 [facility] [address] [place] [address] PCP - General 06/15/19 06/19/19 Heidi Gunn PA-C [address] [place] [address] PCP - General Physician Nuclear Physics Teacher - Medical 06/20/19 04/29/20 [facility] [address] [place] [address] PCP - General Clinic 10/03/22 07/14/23 System, Provider Not In PCP - General Clinic 07/15/23 Shirlene Amos MD [address] [facility] [address] Dermatology 12/29/15 Pat Mayorga PA-C [address] [facility] [place] [address] Assigned PCP 07/02/18 06/23/19 Heidi Gunn PA-C [address] [place] [facility] [place] [id number] Assigned PCP 06/24/19 05/03/20 Manju Crooks, RECORD CHANGER CNM Assigned OBGYN Provider 03/21/20 09/19/21 Zaira Queen, RECORD CHANGER TELECOMMUNICATION TOWER TECHNICIAN [address] [place] [address] Assigned PCP 05/04/20 03/07/21 Franklyn Chadwick DPM [address] [facility] [place] [address] Assigned Musculoskeletal Provider 05/18/20 11/13/21 [place] [address] [place] [address] Assigned Gastroenterology Provider 11/23/20 12/20/20 Heidi Gunn PA-C [address] [place] [address] Assigned PCP 03/08/21 05/07/22 Sukumar Villarreal MD [address] [place] [address] Assigned Musculoskeletal Provider 11/14/21 12/18/21 Burton Duncan MD [address] [place] [address] Assigned Musculoskeletal Provider 12/19/21 07/21/23 Pat Cole APRN TELECOMMUNICATION TOWER TECHNICIAN [address] [place] [address] 294375 Nurse Practitioner 01/19/22 Yohana Estes PA-C [address] [place], [place] 127740 Assigned PCP 05/08/22 06/22/23 Letha Manzanares MD [address] [place] [address] Ophthalmology 03/25/23 02/15/24 Corby Centeno MD [address] [place] [address] 150975 Dermatology 03/29/23 Cynthia Dubon MD [address] [place] [address] 859745 Cardiovascular Disease 04/19/23 Letha Manzanares MD Assigned Surgical Provider 04/23/23 11/19/23 Wilma Saba MD [address] [place] [address] 286884 Assigned OBGYN Provider 04/09/23 Jeannette Jean Baptiste, UNIX CONSULTANT [address] [address] Assigned PCP 06/23/23 Cynthia Dubon MD [address] [place] [address] Assigned Heart and Vascular Provider 07/01/23 Corby Centeno MD [address] [place] [address] Assigned Surgical Provider 11/20/23 documented as of this encounter
[2024-05-03 17:00] LABS: Chlamydia DNA Amplified* NOT DETECTED (No Detected); GC DNA Amplified* NOT DETECTED (No Detected)
[2024-05-05 03:00] LABS: HPV Source Cervix; HPV, High Risk by TMA Not Detected
== END 2024-05-03 09:02 | disposition home or self-care (01) ==
PROVIDERS: PCP Family Medicine; Visit Provider Physician Assistant
DX: Z11.3 Encounter for screening for infections with a predominantly sexual mode of transmission (principal); Z87.42 Personal history of other diseases of the female genital tract; Z12.4 Encounter for screening for malignant neoplasm of cervix
CPT/HCPCS: 86592; 86703; 86803; 87086; 87340; 87491; 87591; 87624; 87625; 88141; 88142

== ENCOUNTER 2024-05-10 14:41 | Outpatient (CLI) | payer MEDICAID, SELFPAY ==
--- NOTE | 2024-05-10 14:45 | CRLHL7_ITS ---
For Patients: As a result of the Century Cures Act, medical imaging exams and procedure reports are released immediately into your electronic medical record. You may view this report before your referring provider. If you have questions, please contact your health care provider. CLINICAL HISTORY: TECHNIQUE: 2D mccabe scale ultrasound. In addition color Doppler and spectral Doppler analysis was performed of the pelvis using a transabdominal and transvaginal approach. FINDINGS: The uterus measures 8.6 x 2.9 x 3.4 cm. Left-sided intramural fibroid is present measuring 2.1 x 1.9 x 2.1 cm. Cervical nabothian cyst is present measuring 10 x 8 x 12 millimeters. The endometrial lining appears normal and measures 2.9 mm in thickness. IUD is present in good position within the endometrial canal. The right ovary measures 3.9 x 1.8 x 2.0 cm in size and the left ovary measures 3.3 x 1.0 x 1.5 cm. The ovaries demonstrate normal arterial and venous blood flow on color Doppler and spectral Doppler analysis. There are no suspicious fluid collections within the cul-de-sac. Dominant follicle left ovary measures 2.1 cm. IMPRESSION: Unremarkable ovaries. No torsion. No excess pelvic free fluid or adnexal mass. Normal position of an IUD within the endometrial canal. Left-sided intramural fibroid measures 2.1 cm. Dictated by Burton Adams MD @ 05/11/2024 9:55:59 AM (Electronically Signed)
== END 2024-05-10 14:42 | disposition home or self-care (01) ==
LOC: US 14:42
PROVIDERS: PCP Family Medicine; Visit Provider Physician Assistant
DX: R10.2 Pelvic and perineal pain (principal)
CPT/HCPCS: 76830; 76856; 93976